=== PATIENT | female | born 1990 | race Caucasian/White ===

== ENCOUNTER 2022-04-18 14:43 | Outpatient (CLI) | payer OTHER, SELFPAY ==
--- NOTE | 2022-04-18 15:00 | CRLHL7_ITS ---
For Patients: As a result of the Century Cures Act, medical imaging exams and procedure reports are released immediately into your electronic medical record. You may view this report before your referring provider. If you have questions, please contact your health care provider. INDICATION: COVID IN , GROWTH. COMPARISON: 01/21/2022 TECHNIQUE: Real time villar scale imaging of the fetus was performed. FINDINGS: Sonographic imaging demonstrates a single living intrauterine gestation. Fetus demonstrates a regular cardiac rate of 157 beats per minute. Fetus has a brianna breech position. The placenta lies left anterior. Amniotic fluid volume appears normal and there is a single deepest vertical pocket: 7.3 cm. The estimated weight is 2108gm which lies at the 73rd %. On the prior OB ultrasound exam dated 01/21/2022 the estimated weight was at the 42nd%. BPD 88th percentile. HC 88th percentile. AC 74th percentile. FL 49th percentile. The HC/AC ratio measures 1.08 range (0.95-1.11). IMPRESSION: Sonographic gestational age 33 weeks 4 days and sonographic due date 06/02/2022. Sonographic age 11 days ahead of the clinical age. Estimated weight 73rd percentile. Abdominal circumference 74th percentile. Dictated by Cisco Ware MD @ 04/19/2022 10:37:39 AM (Electronically Signed)
== END 2022-04-18 14:44 | disposition home or self-care (01) ==
LOC: US 14:44
PROVIDERS: Visit Provider Advanced Practice Midwife
DX: O98.519 Other viral diseases complicating pregnancy, unspecified trimester (principal); U07.1 COVID-19; Z3A.33 33 weeks gestation of pregnancy
CPT/HCPCS: 76816

== ENCOUNTER 2022-05-03 16:21 | Outpatient (CLI) | payer OTHER, SELFPAY | END 2022-05-03 16:22 | disposition home or self-care (01) | LOC: NFLDREF 16:22 | PROVIDERS: Visit Provider Registered Nurse | DX: O99.013 Anemia complicating pregnancy, third trimester (principal); R00.0 Tachycardia, unspecified; Z3A.34 34 weeks gestation of pregnancy | CPT/HCPCS: 84443 ==

== ENCOUNTER 2022-05-06 11:57 | Outpatient (CLI) | payer OTHER, SELFPAY ==
[2022-05-06 17:48] LABS: Iron* 107 ug/dL (37-170)
[2022-05-06 17:58] LABS: Percent Iron Saturation 22 % (20-50); Total Iron Binding Capacity 492 ug/dL (265-497)
[2022-05-06 18:23] LABS: Ferritin* 21.2 ng/mL (6.24-137.0)
== END 2022-05-06 11:58 | disposition home or self-care (01) ==
PROVIDERS: Visit Provider Registered Nurse
DX: O99.013 Anemia complicating pregnancy, third trimester (principal)
CPT/HCPCS: 82728; 83540; 83550

== ENCOUNTER 2022-05-19 14:42 | Outpatient (CLI) | payer OTHER, SELFPAY ==
--- OUTSIDE RECORDS SUMMARY | 2022-05-19 14:44 | XMS_ITS | Encounter Summary ---
:1990 Author Organization [facility] Address [address] [place] [address] Care Team Providers Name Role Phone Judi Strickland APRN, C.N.P., D.N.P. Primary Care Provider Encounter Details Date Type Department Care Team Description 06/08/2021 Orders Only [facility] Judi Strickland APRN, C.N.P., D.N.P. 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 PCP - General 07/25/[id number] [place] [phone] documented as of this encounter
--- OUTSIDE RECORDS SUMMARY | 2022-05-19 14:44 | XMS_ITS | Encounter Summary ---
:1990 Author Organization [facility] Address [address] [place] [address] Care Team Providers Name Role Phone No Ref-Primary, Physician Primary Care Provider [phone] Encounter Details Date Type Department Care Team Description 01/28/2022 Travel Social History Tobacco Use Types Packs/Day Years Used Date Never Assessed Sex Assigned at Date Recorded Not on file COVID-19 Exposure Response Date Recorded In the last 10 days, have you been in contact with No / Unsu re 01/28/2022 1:15 PM CDT someone who was confirmed or suspected to have Coronavirus/COVID-19? 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
--- OUTSIDE RECORDS SUMMARY | 2022-05-19 14:44 | XMS_ITS | Encounter Summary ---
:1990 Author Organization [facility] Address [address] [place] [address] Care Team Providers Name Role Phone Judi Strickland APRN, C.N.P., D.N.P. Primary Care Provider Reason for Visit Reason Comments Patient Education Encounter Details Date Type Department Care Team Description 12/21/2021 Clinical Communication Department of Maris Francisco Education Infusion Therapy in [place], [address] [place], [place] [address] [facility] [address] [address] [place] [phone] Social History Tobacco Use Types Packs/Day Years Used Date Smoking Tobacco: Never Smokeless Tobacco: Never Sex Assigned at Date Recorded Not on file documented as of this encounter Miscellaneous Notes Addendum Note - Carmen Francisco R.N. - 12/21/2021 2:00 PM CDT Addended by: CARMEN FRANCISCO on: 12/21/2021 02:00 PM Modules accepted: Orders Telephone Encounter - Carmen Francisco R.N. - 12/21/2021 1:45 PM CDT SUBJECTIVE CHIEF COMPLAINT / REASON FOR CALL Patient Education Information Discussed Covid:consent for Bebtelovimab at [place] PLAN Disposition/Recommendation: patient transferred to the appointment desk Information/Education: patient/caller able to teach back Caller agreeable to plan of care: yes The following references were used: nursing clinical judgement and other monoclonal education Hi, my name is Carmen Francisco R.N. from [facility] with a recommendation that you receive a monoclonal antibody infusion. To ensure that I offer you the therapies available to you, can you please let me know what state you are residing in right now? [place]. The medication is called bebtelovimab and it is for the treatment of coronavirus disease 2019 (COVID-19). This medication has been recommended for you after review of your medical records by a multidisciplinary physician team. While most people do feel better in seven days, some people do develop serious respiratory complications which could lead to hospitalizations or even . In the next few minutes, I am going to give you more information about this medication to help you understand the possible risks and benefits of taking a monoclonal antibody infusion. It is your choice to receive a monoclonal antibody infusion or stop at any time. ??? Receiving a monoclonal antibody infusion may benefit certain people with COVID-19. ??? This may decrease your risk for hospitalization by 10% to 3% ??? This may decrease the duration of your symptoms by 2 days (from 8 days to 6 days) ??? You may be feeling well now or not that bad, however, you have been identified as someone who isat risk of developing worse symptoms, and this infusion is designed to prevent that and help you to continue feeling well. What is a monoclonal antibody infusion? These are investigational medicines used for the treatment of COVID-19. It can be used in peoplewho are: o Not in the hospital o Who do not have a new or increased oxygen requirement due to COVID-19 o Who have not previously tested positive for COVID-19 within the last 90 days o Age 12 and older o Have mild or moderate symptoms o Weigh equal or more than 88 pounds o AND who are at high risk for developing severe COVID-19 symptoms or being hospitalized. ??? Monoclonal antibodies are laboratory made proteins that mimic the immune system's ability to fight off harmful pathogens such as viruses. This medication is specifically directed against the COVID-19 spike protein, designed to block the virus' attachment and entry into human cells. Do you have new or increased oxygen requirement due to COVID 19? No, I do need to let you know that your vital signs will be taken on the arrival for the infusion center. If you are found to be in needof oxygen due to COVID-19 then you will not be infused with MAB rather you will be referred to an urgent care or ED for evaluation of worsening disease. Are you having COVID symptoms now? Yes, if so what date did they start 12-18-21 Have you been previously tested and diagnosed with COVID-19? Yes; What was the date the of your first positive test? 09-22-21. If your first positive test was more than 90 days prior you are eligible for MAB infusion. I need to let you know that this medication is investigational because it is still being studied. The FDA has approved the use of this medication under an EUA while data is still being collected; but early studies suggest that it reduces the risk of hospitalization. The FDA's Emergency Use Authorization (EUA) has authorized people to receive monoclonal antibody infusions for the treatment of mild COVID-19. [facility] supports this treatment for certain people. I am happy to share with you that since August 2020 [facility] has infused over 23, 000 patients with a monoclonal antibody infusion across our [place] [facility]. I am sharing this because we have not seen any serious side effects in the patients who choose to receive the infusion. The side effects that we are seeing are similar to patients who choose not to receive the medication at all. Patients have reported to us mild fever, diarrhea, chills for a short while, and/or hives. Tell your healthcare provider about all of your medical conditions, including if you: ??? Have any allergies ??? Are or plan to become ??? Are or plan to breastfeed ??? Have any serious illnesses ??? Are taking any medications (prescription, [id number], vitamins, and herbal products) How will I receive a monoclonal antibody infusion? Monoclonal antibodies are given to you through a vein in your arm over approximately 1 minute. You will be observed for 1 hour after the infusion is complete to monitor for side effects. You will receive one dose of the monoclonal antibody infusion by IV. What are the important possible side effects of monoclonal antibodies? The most commonly reported side effects in clinical studies have been nausea, diarrhea, dizziness, headache, itching and vomiting. Serious reactions such as allergic reactions or infusion reactions have occurred but are uncommon. Tell your health care provider right away if you have any of the following signs or symptoms of an allergic reaction: fever, chills, nausea, headache, shortness of breath, low blood pressure, wheezing, swelling of your lips face or throat, rash including hives, itching, muscle aches and dizziness. Because monoclonal antibody infusions are still being studied, not a lot of people have been given monoclonal antibody infusions yet, and it is possible that not all of the risks are known at this time. Serious and unexpected side effects may happen. Specific studies have not been conducted to address the possible risks that a monoclonal antibody infusion could interfere with your body's own ability to fight off a future infection of SARS-CoV-2 and/or whether it could reduce your body's immune response to a vaccine for SARS-CoV-2 . Talk to your healthcare provider if you have any questions including whether the risks of serious SARS-CoV-2 infection outweigh the potential risks of monoclonal antibody infusion. COVID-19 Vaccine or Booster I wanted to share with you that if you have completed your COVID 19 vaccine series and then test positive while being symptomatic you are eligible to receive MAB. MAB has been shown to benefit COVID-19patients who have previously been vaccinated. Patients who receive a monoclonal antibody infusion are still eligible for a COVID-19 vaccine or booster. Patients who receive monoclonal antibody therapies are advised to delay COVID vaccination or booster until they are out of isolation and they are feeling well. We also strongly encourage you to get your flu vaccine this year once your isolation has ended and you are feeling well. What other treatment choices are there? Like monoclonal antibody infusions, the FDA may allow for the emergency use of other medicines to treat people with COVID-19. Go to https://www.surmb88eoqgrdaoadafcawjtby.nih.gov/ for information on the emergency use of other medicines that are not approved by FDA to treat people with COVID- 19. Your healthcare provider may talk with you about clinical trials you may be eligible for. It is your choice to be treated or not to be treated with a monoclonal antibody infusion. Should youdecide not to receive a monoclonal antibody infusion or stop it at any time, it will not change yourstandard medical care. Are you or ? Yes. While there is limited evidence regarding the use of COVID monoclonal antibody and antiviral therapy in , there is evidence that treating womenwith these medications is beneficial. In January 2021, was added to the list of high risk condi tions that qualify patients for emergency use authorization (EAU) medications. is known morgan a high risk condition for developing severe COVID disease, and severe disease can cause serious complications in . For a mother and her unborn baby, the benefit of receiving these medications is likely greater than the risk from the treatment. The [facility] Obstetrics and Gynecology teamsupports the use of monoclonal antibody and certain antiviral therapies for the prevention of severedisease in women. In our experience these medications are well tolerated by patients who are . If you have further questions, you may contact your care team. How do I report side effects with monoclonal antibody infusion? Tell your healthcare provider right away if you have any urgent side effects. For non-urgent side effects or side effects that bothers you or does not go away please contact the care team coordinating your COVID care during business hours. This may be your primary care provider, your COVID care team or your remote monitoring nurse team, which ever is applicable after emergency care, if needed, has been reached. Report side effects to [employer] at www.fda.gov/medAutocostatch, call 2-713-FCP-3547. How can I learn more? Ask your healthcare provider ??? Visit https://www.puwub30qmrjtswiyuxpdkayoyt.nih.gov/ ??? Contact your local or state public health department Would you like to learn more about what an Emergency Use Authorization (EUA)?Yes; The [place] FDA has made these monoclonal antibody infusions available under an emergency access mechanism calledan EUA. The EUA is supported by a [place] of Health and Human Service (HHS) declaration that circumstances exist to justify the emergency use of drugs and biological products during the COVID-19 pandemic. What is the cost for this medication? The medication is provided to [facility] at no charge and there is no cost of the medication to youthe patient. Any associated costs with the infusion will be billed to the patient's insurance company. [place] does not want cost to be a barrier to infusion so please let us know at your infusion if you need more information or are worried about cost being a barrier. If you are uninsured or underinsuredyou will still be able to receive this medication free of cost. Medication Interactions Please know that there has been a large review by pharmacists, and this medication is not likely to interfere with any normal medication patients may be taking. This is possible as your body processes this medication differently than standard prescription medications. Given how this medication helps your body it is better to receive this medication as soon as possible if you agree to the infusion. Please know that our team is offering and will provide you this treatment for COVID-19 as part of a larger team that is coordinating your overall care. If you have continued questions after your infusion or your symptoms get worse please reach out to the team coordinating your clinical care, either a COVID-19 focused team or your primary care provider's office. If you have a patient portal please look at your messages as there may be one awaiting your review from the clinical team coordinating your care. Do you agree/consent to receive this infusion? Yes; The following education has been completed in accordance with the FDA Emergency Use Authorization (EUA) requirements: Informed patient/caregiver thatmonoclonal antibody infusions are an unapproved drug that is authorized for use under this EUA. Informed patient/caregiver of alternatives to receiving authorized monoclonal antibody infusions The Fact Sheet for Patients, Parents and Caregivers will be provided to patient/caregiver at the [facility]. Remote Patient Monitoring: System Calculated MASS Score: Monoclonal Antibody Screening Score (MASS) Total Points Current as of 39 minutes ago 2 0 - 3 Points: Low Risk 4 - 6 Points: Medium Risk >= 7 Points: High Risk No Change Details This score is used to evaluate patient risk of complications with COVID-19 infection Points Metrics 0 Age: 31 Current as of 39 minutes ago 0 Has Chronic Respiratory Disease: No Current as of 39 minutes ago 0 Has Diabetes: No Current as of 39 minutes ago 0 Patient is Immune Compromised/Transplant Patient: No Current as of 39 minutes ago 0 BMI: BMI >/= 25 Dx on Problem List Current as of 39 minutes ago 0 Has CVD: No Current as of 39 minutes ago 0 Has Renal Disease (CKD 4 or 5, ESRD w/ Dialysis): No Current as of 39 minutes ago 0 Has Hypertension: No Current as of 39 minutes ago 2 : Yes Current as of 39 minutes ago Does the patient have a qualifying MASS score? No. MASS Score is 0-2. End RPM screening. Does the patient have symptoms? Yes. Patient is day 0-5 from symptom onset. Continue RPM screening. Is the patient eligible for Remote Patient Monitoring? No. You do not qualify for Remote Patient Monitoring. COVID-19 Isolation Beginning of isolation (day 0) is considered the start of onset of symptoms. Effective 09/27/21, the CDC now recommends a minimum 5 day isolation for the general population who tests positive for COVID-19 and who are asymptomatic or with symptoms that are resolving (without a fever for 24 hours), followed by 5 days of wearing a mask when around others to minimize the risk of infecting people they encounter. Individuals who are immune compromised should isolate for a minimum of 10 days. An individual must, at a minimum, follow the isolation and quarantine requirements outlined by [facility] health department. All isolation periods are for a minimum number of days, and patients must still meet criteria of being fever free and having improving symptoms for 24hour prior to ending home isolation. The patient may end home isolation when they meet the following criteria: ??? They have met the minimum days of the recommended isolation period (day 0 is day of symptom onset OR date of positive test if they never had symptoms) ??? They have been afebrile at least 24 hours without the use of fever reducing medications ??? Their symptoms are improving Thank you for your time, I will connect with the rest of the team to let them know the results of this phone call. 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 PCP - General 07/25/[id number] [place] [phone] documented as of this encounter
--- OUTSIDE RECORDS SUMMARY | 2022-05-19 14:44 | XMS_ITS | Encounter Summary ---
:1990 Author Organization [facility] Address [address] [facility] 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
--- OUTSIDE RECORDS SUMMARY | 2022-05-19 14:44 | XMS_ITS | Encounter Summary ---
:1990 Author Organization [facility] Address [address] [place] [address]. [place] [address] Care Team Providers Name Role Phone Unavailable Primary Care Provider Unavailable Encounter Details Date Type Department Care Team Description 01/25/2022 Medical Correspondence [facility] Scan, MATERNAL Health Info Mgmt Non-Provider MEDICINE CE [facility] Srvcs PROVIDER SERVICE [address] [place] [address] [place] [address] [facility] [phone] Social History Tobacco Use Types Packs/Day Years Used Date Never Assessed Sex Assigned at Date Recorded Not on file documented as of this encounter Plan of Treatment Not on filedocumented as of this encounter Visit Diagnoses Not on filedocumented in this encounter
--- OUTSIDE RECORDS SUMMARY | 2022-05-19 14:44 | XMS_ITS | Encounter Summary ---
:1990 Author Organization [facility] Address [address] [place] [address] Care Team Providers Name Role Phone Unavailable Primary Care Provider Unavailable Reason for Visit Reason Comments Ultrasound L2-L Ventricular EIF, bilate ral adrenal gland enlargement Encounter Details Date Type Department Care Team Description 01/26/2022 PRE VISIT [facility], Ultrasound (L2-L Maternal Medicine ABIEL Gardiner Vent ricular EIF, [facility] bilateral adrenal [address] gland en largement) [address] [place] [address] Social History Tobacco Use Types Packs/Day Years Used Date Never Assessed Sex Assigned at Date Recorded Not on file documented as of this encounter Miscellaneous Notes Telephone Encounter - Zuleyka Gonzalez RN - 01/26/2022 1:53 PM CDT documented in this encounter Plan of Treatment Not on filedocumented as of this encounter Visit Diagnoses Not on filedocumented in this encounter
--- OUTSIDE RECORDS SUMMARY | 2022-05-19 14:44 | XMS_ITS | Encounter Summary ---
:1990 Author Organization [facility] Address [address] [place] [address] Care Team Providers Name Role Phone Judi Strickland APRN, C.N.P., D.N.P. Primary Care Provider Reason for Visit Reason Onset Date Comments Testing For Upper Respiratory Virus Symptoms 11/09/2021 Encounter Details Date Type Department Care Team Description 11/09/2021 External Outreach Department of [facility] Leann Garrido Contact With And Medicine, [place] Flaquita ZamoranoARamakrishna (Suspected) Exposure Clinic, in [address] To COVID-19 (Primary [place], [place] Dx) [address] [facility] [address] [place], [place] [phone] (Work) [phone] Social History Tobacco Use Types Packs/Day Years Used Date Smoking Tobacco: Never Smokeless Tobacco: Never Sex Assigned at Date Recorded Not on file documented as of this encounter Progress Notes Betty Sky R.N. - 11/09/2021 8:34 AM CST Encounter created for symptomatic infectious disease screening with possible COVID, Influenza, RSV, and/or Group A Strep testing. ICAL TERRITORY MANAGER documented in this encounter Plan of Treatment Not on filedocumented as of this encounter Procedures Procedure Name Priority Date/Time Associated Diagnosis Comme nts SARS CORONAVIRUS-2 Routine 11/10/2021 3:51 PM Contact With And Results for this RNA, V SURGICAL TERRITORY MANAGER (Suspected) Exposure procedu re are in To COVID-19 the results section. documented in this encounter Results SARS Coronavirus-2 RNA, V Symptomatic (11/10/2021 3:51 PM SURGICAL TERRITORY MANAGER) [facility] Method Time Signature SARS-CoV-2 Swab, 11/11/2021 ECLR Specimen Nasopharynx 7:22 AM SURGICAL TERRITORY MANAGER Source SARS CoV-2 Undetected Undetected 11/11/2021 ECLR RNA, TMA 7:22 AM SURGICAL TERRITORY MANAGER Comment: SARS-CoV-2 RNA absent. This result does not rule out COVID-19 in the patient, as the sensitivity of the test depends o n the timing of the specimen collection and the quality of the specim en. Result should be correlated with patient's history and clinical presentat ion. ----ADDITIONAL INFORMATION---- This molecular amplification test was pe rformed using the Aptima SARS-CoV-2 assay ([employer] on the [employer] tem under emergency use authorization (EUA) by the U.S. Food and Drug Administ ration. Fact sheets for this EUA assay can be fo und at the following links: For Healthcare Providers: https://www.[employer] a.gov/media/488340/download For Patients: https://www.fda.gov/media/ 385451/download Specimen Anatomical Collection Method Collection Time Receive d Time (Source) Location / / Volume Laterality Varies 11/10/2021 3:51 PM 9:57 (Nasopharynx) SURGICAL TERRITORY MANAGER PM SURGICAL TERRITORY MANAGER Del Garrido P.A.-C. LAB MICROBIOLOGY - GENERAL O RDERABLES Performing Organization Address City/State/ZIP Code Phon e Number [facility]- [address] [place] [address] [phone] [facility] [place] [address] [address] documented in this encounter Visit Diagnoses Diagnosis Contact With And (Suspected) Exposure To COVID-19 - Primary documented in this encounter Additional Health Concerns Infection Onset Date Last Indicated Resolved Time COVID19 Pending 11/09/2021 11/10/2021 11/11/2021 7:23 AM SURGICAL TERRITORY MANAGER documented as of this encounter Care Teams Vehicle Safety Inspector Relationship Specialty Start Date End Date Judi Strickland APRN, C.N.P., D.N.P. PCP - General 07/25/[address] [place] [phone] documented as of this encounter
--- OUTSIDE RECORDS SUMMARY | 2022-05-19 14:44 | XMS_ITS | Encounter Summary ---
:[address] [facility] Address [address] [place] [address] Care Team Providers Name Role Phone Judi Strickland APRN, C.N.P., D.N.P. Primary Care Provider Reason for Visit Appointment Request (Routine) - Closed Specialty Diagnoses / Procedures Referred By Contact Refer red To Contact Family Medicine Referral ID Status Reason Start Date Expiration Date Visits Requ ested Visits Authorized [id number] Closed 12/21/2021 12/21/2022 1 1 Encounter Details Date Type Department Care Team Description 12/21/2021 Internal E-Consult Department of Family Mehnaz Chong OVID-19 Infection Medicine, Center [address] (Primary Dx) [address] Professional [address] [facility], [address] [place] [address] [place], [place] [phone] (Work) Social History Tobacco Use Types Packs/Day Years Used Date Smoking Tobacco: Never Smokeless Tobacco: Never Sex Assigned at Date Recorded Not on file documented as of this encounter Consult Notes Mehnaz Chong, D.OAnia - 12/21/2021 11:00 AM CDT E-Consult for Request for Outpatient Treatment for Acute Covid-19 Ms. Felix tested positive for COVID-19. The Covid-19 Infection flag in the [place] Chart has been updated. [facility], in collaboration with the [place] [facility] of [facility], is currently able to offer [place] oral treatment to symptomatic patients who have symptoms < or = 7 days and < or =5 days respectively and a CAST >=1. Care/Risk Scores Risk Factors for Severe Infection w/ COVID-19 0 The patient is eligible for outpatient COVID therapy. Since the patient is , immunocompromised or ineligible for Paxlovid, the chart will be routed to the closest regional infusion therapy center to the patient's location. An RN will be contacting patient to consent and order the appropriate therapy. Mehnaz Chong D.O. [place] COVID Care Team [facility] and [facility] -Eligibility for treatment requires a CAST>=1. Eligibility for Remote Patient Monitoring requiresMASS>=3. Monoclonal Antibody Screening Score Guide Age >=65 = 2 BMI >= 35 = 1 Cardiovascular disease AND age > =55 = 2 Chronic kidney disease stave IV or more severe (eGFR <30) = 3 Chronic Respiratory Disease and age >= 55 = 2 Diabetes Mellitus = 2 Hypertension and age >= 55 = 1 Immune Compromised = 4 = 2 Monoclonal Antibody Screening Score (MASS) Total Points N/A 0 - 3 Points: Low Risk 4 - 6 Points: Medium Risk >= 7 Points: High Risk Last Change: N/A This score is used to evaluate patient risk of complications with COVID-19 infection This score is not applicable to this patient. Components are not calculated. CAST Score Age >= 65=1 BMI >25=1 Diabetes Mellitus=1 CV Disease=1 =1 CKD=1 Sickle Cell Disease/hemoglobinopathy=1 Chronic Lung Disease=1 Other Medical Disease Increase Risk of COVID-19 Complications=1 Medical-Related Technological Dependence (tracheostomy, gastrostomy or CPAP=1 Neurodevelopmental Disorder=1 Immunosuppressive disease or treatment=1 Hypertension=1 documented in this encounter Plan of Treatment Not on filedocumented as of this encounter Visit Diagnoses Diagnosis COVID-19 Infection - Primary documented in this encounter Care Teams Gas Fitter Helper Relationship Specialty Start Date End Date Judi Strickland APRN, C.N.P., D.N.P. PCP - General 07/25/[address] [place] [phone] documented as of this encounter
--- OUTSIDE RECORDS SUMMARY | 2022-05-19 14:44 | XMS_ITS | Encounter Summary ---
:1990 Author Organization [facility] Address [address] [place] [address] Care Team Providers Name Role Phone Judi Strickland APRN C.N.P., D.N.P. Primary Care Provider Reason for Referral Outpatient (Routine) - Authorized Specialty Diagnoses / Procedures Referred By Contact Refer red To Contact Family Medicine Judi Strickland APRN, [facility] C.N.P., D.N.P. [address] [place] [phone] Referral ID Status Reason Start Date Expiration Date Visits V isits Requested Authorized [id number] Authorized 03/08/2022 03/08/2023 1 1 Encounter Details Date Type Department Care Team Description 03/08/2022 Orders Only [facility] SEMN PCP TH EMILIANOT Sa marshall Givens M.D. [address] [place], [place] [phone] (Wo rk) Social History Tobacco Use Types Packs/Day Years Used Date Smoking Tobacco: Never Smokeless Tobacco: Never Sex Assigned at Date Recorded Not on file documented as of this encounter Plan of Treatment Scheduled Referrals Name Type Priority Associated Diagnoses [facility] Out[facility] Referral Routine Expec jacob: office visit 03/22/2022, (clinic) Expires: 09/04/2022 documented as of this encounter Visit Diagnoses Not on filedocumented in this encounter Care Teams Senior Recruitment Consultant Relationship Specialty Start Date End Date Judi Strickland APRN, C.N.P., D.N.P. PCP - General 07/25/[address] [phone] documented as of this encounter
--- OUTSIDE RECORDS SUMMARY | 2022-05-19 14:44 | XMS_ITS | Encounter Summary ---
:1990 Author Organization [facility] Address [address] [place] [address]. [place] [address] Care Team Providers Name Role Phone Unavailable Primary Care Provider Unavailable Reason for Referral Consultation (Routine: Next available opening) - Pending Review Specialty Diagnoses / Procedures Referred By Contact Refer red To Contact Diagnoses related condition, antepartum Romana Mar MD [facility] [address] [place] [address] Fax: Referral ID Status Reason Start Date Expiration Date Visits V isits Requested Authorized [id number] Pending 01/25/2022 01/25/2023 1 1 Review Encounter Details Date Type Department Care Team Description 01/25/2022 Transcribe Orders [facility] Romana Mar, Pr egnancy related Maternal MD condition, [facility] antepartum (Primary [facility] Dx) [address] [facility] [address] [place] [address] [phone] Social History Tobacco Use Types Packs/Day Years Used Date Never Assessed Sex Assigned at Date Recorded Not on file documented as of this encounter Plan of Treatment Scheduled Referrals Name Type Priority Associated Diagnoses Order S chedule [facility] Med Ctr Referral Routine: Next related Expe cted: Referral - available opening condition, 01/25/2022 antepartum (Approximate), Expires: 07/24/2022 documented as of this encounter Visit Diagnoses Diagnosis related condition, antepartum - Primary documented in this encounter
--- OUTSIDE RECORDS SUMMARY | 2022-05-19 14:44 | XMS_ITS | Encounter Summary ---
:1990 Author Organization [facility] Address [address] [facility] 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-Hb-[id number] adrenal glan ds bilaterally Encounter Details Date Type Department Care Team Description 02/25/2022 Office Visit [facility] Jazmine Sanderson DO [address] [address] Suspected Maternal Pinky Cottrell MD [address] [place] [address] anomaly, antepartum, Medicine Center single or un specified [place] fetus (Primary Dx) [address] [facility] [address] [place] [address] Social History Tobacco Use Types Packs/Day Years Used Date Never Assessed Sex Assigned at Date Recorded Not on file COVID-19 Exposure Response Date Recorded In the last 10 days, have you been in contact with No / Unsu re 02/25/2022 7:46 AM CDT someone who was confirmed or suspected to have Coronavirus/COVID-19? documented as of this encounter Progress Notes Pinky Cottrell MD - 02/25/2022 8:30 AM CDT Please see Imaging tab under Chart Review for full details. Pinky Cottrell MD Maternal Medicine documented in this encounter Plan of Treatment Not on filedocumented as of this encounter Visit Diagnoses Diagnosis Suspected anomaly, antepartum, sin gle or unspecified fetus - Primary documented in this encounter Care Teams Business Education Instructor Relationship Specialty Start Date End Date No Ref-Primary, Physician PCP - General 01/27/22 Afsaneh Enciso DO Assigned OBGYN Provider 02/06/22 04/29/[address] [place] [address] documented as of this encounter
--- OUTSIDE RECORDS SUMMARY | 2022-05-19 14:44 | XMS_ITS | Encounter Summary ---
:1990 Author Organization [facility] Address [address] [place] [address] Care Team Providers Name Role Phone Judi Strickland APRN, C.N.P., D.N.P. Primary Care Provider Encounter Details Date Type Department Care Team Description 10/18/2021 Clinical Communication Department of [facility] Obstetric[facility] in [address] [address] [place], [place] [phone] (Work) [phone] Social History Tobacco Use Types Packs/Day Years Used Date Smoking Tobacco: Never Smokeless Tobacco: Never Sex Assigned at Date Recorded Not on file documented as of this encounter Miscellaneous Notes Telephone Encounter - Kalyani Bardales R.N. - 10/20/2021 9:37 AM CST Spoke with patient. States that she is unsure if she is planning to come through or [place]. Will call back when decides where she wants her care. [facility] Telephone Encounter - Carleen Fontaine - 10/18/2021 4:44 PM CST New ob [facility] documented in this encounter Plan of Treatment Not on filedocumented as of this encounter Visit Diagnoses Not on filedocumented in this encounter Care Teams Polysomnography Technologist Relationship Specialty Start Date End Date Judi Strickland APRN, C.N.P., D.N.P. PCP - General 07/25/[address] [place] [phone] documented as of this encounter
--- OUTSIDE RECORDS SUMMARY | 2022-05-19 14:44 | XMS_ITS | Encounter Summary ---
:1990 Author Organization [facility] Address [facility] [place] [place] [address] Care Team Providers Name Role Phone No Ref-Primary, Physician Primary Care Provider [phone] Reason for Referral Diagnostic Imaging Ultrasound (Routine) - Pending Review Specialty Diagnoses / Procedures Referred By Contact Refer red To Contact Diagnoses related condition, antepartum Romana Metzger MD Procedures [facility], [place] [address] [place] [address] Fax: Referral ID Status Reason Start Date Expiration Date Visits V isits Requested Authorized [id number] Pending 01/26/2022 01/26/2023 1 1 Review Reason for Visit Diagnostic Imaging Ultrasound (Routine) - Pending Review Specialty Diagnoses / Procedures Referred By Contact Refer red To Contact Diagnoses related condition, antepartum Romana Metzger MD Procedures [facility], [place] [address] [place] [address] Fax: Referral ID Status Reason Start Date Expiration Date Visits V isits Requested Authorized [id number] Pending 01/26/2022 01/26/2023 1 1 Review Encounter Details Date Type Department Care Team Description 01/28/2022 Hospital Encounter [facility] Eduarda Metzger MD [facility], [place] [address] [place] [address] related Maternal Afsaneh Enciso, DO [address] [facility] [address] [place], [place] [id number] condition, Medicine Center antepartum [place] [address] [facility] [address] [place] [address] Social History Tobacco Use Types [...] encounter Procedures Procedure Name Priority Date/Time Associated Comments Diagnosis MF US COMPREHENSIVE Routine 01/28/2022 2:16 PM rela jacob Results for this SINGLE CDT condition, procedure are i n antepartum the results section. documented in this encounter Results [facility] US Comprehensive Single (01/28/2022 2:16 PM CDT) Anatomical Region Laterality Modality Ultrasound Specimen (Source) Anatomical Collection Method Collection Time Re ceived Time Location / / Volume Laterality 01/28/2022 1:24 PM CDT Impressions 01/31/2022 8:57 AM CDT IMPRESSION 1) Intrauterine at 20 4/7 week s gestational age. 2) Bilateral prominent adrenal glands. T he genitalia appears normal. None of the other anomalies commonly detected by ultrasound were evident in the detailed anatomic survey described above. An EIF is seen. No increased risk for aneuploidy based on US. 3) Growth parameters and estimated weight were consistent with an appropriate for gestation age pattern of growth. 4) The amniotic fluid volume appeared no rmal. Narrative 01/31/2022 8:57 AM CDT Comprehensive Pat. Name: ARIS LEOS Study Date: 01/28/2022 1:24pm Pat. NO: [id number] Referring ??MD: ZACH METZGER Site: [facility] Tool Repairer Bench: Tania Reid RD MS : 1990 Age: 31 INDICATION Left, Echogenic Intracardiac Focus and e nlarged adrenal glands on outside US. LR NIPT. METHOD Transabdominal ultrasound examination. V iew: Sufficient Brownlee . Number of fetuses: 1 DATING ? Date ?Details ?Gest. age ?ELIZABETH LMP ?09/06/2021 ? 20 w + 4 d ? 06/13/2022 Prior assessment ? 2/ 05/2022 ?GA: 9 w + 1 d ? 20 w + 4 d ? 06/13/2022 U/S ? 01/28/2022 ? based upon AC, BPD, Femur, HC ? 20 w + 5 d ? 06/12/2022 Assigned dating ?Dating performed on 01/28/2022, based on the LMP ?20 w + 4 d ? 06/13/2022 GENERAL EVALUATION Cardiac activity present. FHR 145 bpm. movements present. Presentation cephalic. Placenta Fundal, No Previa, > 2 cm from internal os. Umbilical cord 3 vessel cord. Amniotic fluid Amount of AF: normal. MVP 4.3 cm. BIOMETRY Main Biometry: BPD ?49.9 ?mm ? 21w 1d ?Yarelis LAUREN ?62.5 ?mm ? 20w 1d ?Nicolaides HC ?180.9 ?mm ?20w 4d ?Hadlock Cerebellum tr ?20.0 ? mm ?19w 0d ?Nicolaides AC ?149.8 ?mm ?20w 2d ?32% ?Hadlock Femur ?34.0 ? mm ?20w 5d ?Hadlock Humerus ?32.2 ?mm ? 20w 6d ?Debby Weight Calculation: EFW ? 356 ? g ? 39% ?Hadlock EFW (lb,oz) ? 0 lb 13 ? oz EFW by ?Hadlock ([id number]) Head / Face / Neck Biometry: Data Security Administrator ? 4.6 ? mm CM ?5.7 ? mm Nasal bone ? 6.3 ? mm Nuchal fold ? 3.2 ? mm ANATOMY Heart / Thorax ?4-chamber view: Echogenic intracardiac focus Abdomen ? Right adrenal gland: Prominent adrenal gland ? Left adrenal gland: Prominent adrenal gland The following structures appear normal: Head / Neck ? Cranium. Head size. Head shape. Lateral ventricles. Choroid plexus. Midline falx. Cavum septi pellucidi. Cerebellum. Cisterna magna. ? Parenchyma. Thalami. Vermis. ? Neck. Nuchal fold. Face ? Lips. Profile. Nose. Maxilla. Mandible. Orbits. Lens. Heart / Thorax ?RVOT view. LVOT view. Situs. Aortic arch view. Bicaval view. Ductal arch view. Superior vena cava. Inferior vena cava. 3-vessel view. ? 3-iyalmo-pbzpnxf view. Cardiac position. Cardiac size. Cardiac rhythm. ? Right lung. Left lung. Diaphragm. Abdomen ? Abdominal wall. Cord insertion. Stomach. Kidneys. Bladder. Liver. Bowel. Genitals. Spine ?Cervical spine. Thoracic spine. Lumbar spine. Sacral spine. Extremities / Skeleton ?Rig ht arm. Right hand. Left arm. Left hand. Right leg. Right foot. Left leg. Left foot. Gender: male. MATERNAL STRUCTURES Cervix ?Visualized ? Appearance: Appears Closed ? Cervical length 35.6 mm Right Ovary ?Visualized Left Ovary ?Visualized RECOMMENDATION [facility]. Referred due to prominent adrenal glands and EIF. Confirmed the findings on today's US. Patient had a low risk cell free DNA screen. We reviewed the findings of the prominen t adrenal glands. This could represent a normal variant, bilateral adrenal hemorrhage, less likely congenital adrenal hyperplasia. If adrenal hemorrhage, most will resolve sp ontaneously. We reviewed CAH, autosomal recessive inheritance pattern and discussed carrier screening. The couple were initially interested in meeting with to review the options for carrier screening, but then decided to wait. An echogenic intracardiac focus (EIF) wa s noted on today's ultrasound. This finding is seen in 3-5% of all pregnancies, and in the context of a normal ultrasound and her low risk cell free DNA result it i s considered a normal variant. We discussed that an EIF has no structural or functional implications on cardiac function and further evaluation is not necessary either prena tally or postnatally. A repeat ultrasound has been scheduled h ere in 4 weeks to reevaluate the appearance of the adrenal glands. Return to primary provider for continued care. Thank you for the opportunity to partici calhoun in the care of this patient. If you have questions regarding today's evaluation or if we can be of further service, please contact the Maternal[facility] Medicine Center. anomalies may be present but not detected I spent a total of 30 minutes on the bayron e of this encounter in the care of Aris Leos, includin minutes reviewing the patient's chart 15 minutes in direct patient contact 5 minutes documenting in the medical rec ord Please see note for details. Procedure Note Afsaneh Enciso, DO - 01/31/2022 Comprehensive Pat. Name:Alejandro LEOS Date: 1:24pm Pat. NO: [id number] :ROMANA METZGER [facility] RDMS :1990Age:31 INDICATION Left, Echogenic Intracardiac Focus and e nlarged adrenal glands on outside US. LR NIPT. METHOD Transabdominal ultrasound examination. V iew: Sufficient Brownlee . Number of fetuses: 1 DATING Date Details Gest. age ELIZABETH LMP 09/06/2021 20 w + 4 d 06/13/2022 Prior assessment 11/09/2021 GA: 9 w + 1 d 20 w + 4 d 06/13/2022 U/S 01/28/2022 based upon AC, BPD, Femur, HC 20 w + 5 d 06/12/2022 Assigned dating Dating performed on 01/01, based on the LMP 20 w + 4 d 06/13/2022 GENERAL EVALUATION Cardiac activity present. FHR 145 bpm. movements present. Presentation cephalic. Placenta Fundal, No Previa, > 2 cm from internal os. Umbilical cord 3 vessel cord. Amniotic fluid Amount of AF: normal. MVP 4.3 cm. BIOMETRY Main Biometry: BPD 49.9 mm 21w 1d Hadlock OFD 62.5 mm 20w 1d Nicolaides HC 180.9 mm 20w 4d Hadlock Cerebellum tr 20.0 mm 19w 0d Nicolaides AC 149.8 mm 20w 2d 32% Hadlock Femur 34.0 mm 20w 5d Hadlock Humerus 32.2 mm 20w 6d Debby Weight Calculation: EFW 356 g 39% Hadlock EFW (lb,oz) 0 lb 13 oz EFW by Hadlock ([id number]-FL) Head / Face / Neck Biometry: Data Security Administrator 4.6 mm CM 5.7 mm Nasal bone 6.3 mm Nuchal fold 3.2 mm ANATOMY Heart / Thorax 4-chamber view: Echogenic intracardiac focus Abdomen Right adrenal gland: Prominent a drenal gland Left adrenal gland: Prominent adrenal g land The following structures appear normal: Head / Neck Cranium. Head size. Head sha pe. Lateral ventricles. Choroid plexus. Midline falx. Cavum septi pellucidi. Cerebellum. Cisterna magna. Parenchyma. Thalami. Vermis. Neck. Nuchal fold. Face Lips. Profile. Nose. Maxilla. [place] ble. Orbits. Lens. Heart / Thorax RVOT view. LVOT view. Sit us. Aortic arch view. Bicaval view. Ductal arch view. Superior vena cava. Inferior vena cava. 3-vessel view. 2-xneszv-jvagahp view. Cardiac position . Cardiac size. Cardiac rhythm. Right lung. Left lung. Diaphragm. Abdomen Abdominal wall. Cord insertion. Stomach. Kidneys. Bladder. Liver. Bowel. Genitals. Spine Cervical spine. Thoracic spine. Omaira mbar spine. Sacral spine. Extremities / Skeleton Right arm. Right hand. Left arm. Left hand. Right leg. Right foot. Left leg. Left foot. Gender: male. MATERNAL STRUCTURES Cervix Visualized Appearance: Appears Closed Cervical length 35.6 mm Right Ovary Visualized Left Ovary Visualized RECOMMENDATION We [facility]. Referred due to prominent adrenal glands and EIF. Confirmed the findings on today's US. Patient had a low risk cell free DNA screen. We reviewed the findings of the prominen t adrenal glands. This could represent a normal variant, bilateral adrenal hemorrhage, less likely congenital adrenal hyperplasia. If adrenal hemorrhage, most will resolve sp ontaneously. We reviewed CAH, autosomal recessive inheritance pattern and discussed carrier screening. The couple were initially interested in meeting with to review the options for carrier screening, but then decided to wait. An echogenic intracardiac focus (EIF) wa s noted on today's ultrasound. This finding is seen in 3-5% of all pregnancies, and in the context of a normal ultrasound and her low risk cell free DNA result it i s considered a normal variant. We discussed that an EIF has no structural or functional implications on cardiac function and further evaluation is not necessary either prena tally or postnatally. A repeat ultrasound has been scheduled h ere in 4 weeks to reevaluate the appearance of the adrenal glands. Return to primary provider for continued care. Thank you for the opportunity to partici calhoun in the care of this patient. If you have questions regarding today's evaluation or if we can be of further service, please contact the Maternal- Medicine Center. anomalies may be present but not detected I spent a total of 30 minutes on the bayron e of this encounter in the care of Arsi Leos, includin minutes reviewing the patient's chart 15 minutes in direct patient contact 5 minutes documenting in the medical rec ord Please see note for details. IMPRESSION 1) Intrauterine at 20 4/7 week s gestational age. 2) Bilateral prominent adrenal glands. T he genitalia appears normal. None of the other anomalies commonly detected by ultrasound were evident in the detailed anatomic survey described above. An EIF is seen. No increased risk for aneuploidy based on US. 3) Growth parameters and estimated weight were consistent with an appropriate for gestation age pattern of growth. 4) The amniotic fluid volume appeared no rmal. Romana Metzger MD [facility] US ORDERABLES documented in this encounter Visit Diagnoses Diagnosis related condition, antepartum documented in this encounter Care Teams Groover And Striper Operator Relationship Specialty Start Date End Date No Ref-Primary, Physician PCP - General 01/27/22 documented as of this encounter
--- OUTSIDE RECORDS SUMMARY | 2022-05-19 14:44 | XMS_ITS | Encounter Summary ---
:1990 Author Organization [facility] Address [address] [place] [address]. [place] [address] Care Team Providers Name Role Phone Unavailable Primary Care Provider Unavailable Reason for Referral Diagnostic Imaging Ultrasound (Routine) - Pending Review Specialty Diagnoses / Procedures Referred By Contact Refer red To Contact Diagnoses related condition, antepartum Romana Metzger MD Procedures [facility] [address] [place] [address] Fax: Referral ID Status Reason Start Date Expiration Date Visits V isits Requested Authorized [id number] Pending 01/26/2022 01/26/2023 1 1 Review Encounter Details Date Type Department Care Team Description 01/26/2022 Transcribe Orders [facility], Pr egnancy related Maternal MD condition, [facility] antepartum (Primary [facility]) [address] [address] [phone] Social History Tobacco Use Types Packs/Day Years Used Date Never Assessed Sex Assigned at Date Recorded Not on file documented as of this encounter Plan of Treatment Not on filedocumented as of this encounter Results [facility] (01/28/2022 2:16 PM CDT) Anatomical Region Laterality [...] LEOS Study Date: 01/28/2022 1:24pm Pat. NO: [id number] Referring ??: ZACH METZGER Site: [facility] Alcoholism Worker: Tania Reid RD AK : 1990 Age: 31 INDICATION Left, Echogenic [...] Biometry: BPD ?49.9 ?mm ? 21w 1d ?Hadlock OFD ?62.5 ?mm ? 20w 1d ?Nicolaides HC ?180.9 ?mm ?20w 4d ?Hadlock Cerebellum tr ?20.0 ? mm ?19w 0d ?Nicolaides AC ?149.8 ?mm ?20w 2d ?32% ?Hadlock Femur ?34.0 ? mm ?20w 5d ?Hadlock Humerus ?32.2 ?mm ? 20w 6d ?Debby Weight Calculation: EFW ? 356 ? g ? 39% ?Hadlock EFW (lb,oz) ? 0 lb 13 ? oz EFW by ?Hadlock ([id number]) Head / Face / Neck Biometry: Orthopedic Shoe Maker ? 4.6 ? mm CM ?5.7 ? [...] cava. Inferior vena cava. 3-vessel view. ? 6-vhivjq-pagbxrp view. Cardiac position. Cardiac size. Cardiac rhythm. [...] RECOMMENDATION We [facility] the [facility]. Referred due to prominent [...] Thank you for the opportunity to partici lj in the care of this patient. If [...] note for details. Procedure Note Afsaneh Enciso, - 01/31/2022 Comprehensive Pat. Name:ARIS LEOSDavid Date: 1:24pm Pat. NO: [id number] MD:ROMANA METZGER [facility] RDMS :1990Age:31 INDICATION Left, Echogenic [...] 0 lb 13 oz EFW by Hadlock ([id number]-FL) Head / Face / Neck Biometry: Orthopedic Shoe Maker 4.6 mm CM 5.7 mm Nasal bone [...] vena cava. Inferior vena cava. 3-vessel view. 2-kdaggz-acrzxbp view. Cardiac position . Cardiac size. Cardiac [...] RECOMMENDATION We discussed the findings on today's [facility] with the patient. Referred due to prominent [...] appeared no rmal. Romana Metzger MD [facility] US ORDERABLES documented in this encounter Visit Diagnoses Diagnosis related condition, antepartum - Primary related condition, antepartum documented in this encounter
--- OUTSIDE RECORDS SUMMARY | 2022-05-19 14:44 | XMS_ITS | Encounter Summary ---
:1990 Author Organization [facility] Address [address] [place] [address] Care Team Providers Name Role Phone Judi Strickland APRN, C.N.P., D.N.P. Primary Care Provider Reason for Referral Outpatient (Routine) - Closed Specialty Diagnoses / Procedures Referred By Contact Refer red To Contact Family Medicine Judi Strickland APRN, [facility] C.N.P., D.N.P. [address] [place] [address] [place] [address] Referral ID Status Reason Start Date Expiration Date Visits Requ ested Visits Authorized [id number] Closed 03/19/2020 03/19/2021 1 1 Encounter Details Date Type Department Care Team Description 03/19/2020 Orders Only RST PCP [facility] Judi Strickland APRN, C.N.P., D.N.P. [address] [place] [phone] (Wo rk) Social History Tobacco Use Types Packs/Day Years Used Date Smoking Tobacco: Never Smokeless Tobacco: Never Sex Assigned at Date Recorded Not on file documented as of this encounter Plan of Treatment Scheduled Referrals Name Type Priority Associated Diagnoses [facility] Outpatient Referral Routine Expec jacob: office visit 04/02/2020, (clinic) Expires: 03/19/2023 documented as of this encounter Visit Diagnoses Not on filedocumented in this encounter Care Teams Power Wood Sawyer Relationship Specialty Start Date End Date Judi Strickland APRN, C.N.P., D.N.P. PCP - General 07/25/[address] [phone] documented as of this encounter
--- OUTSIDE RECORDS SUMMARY | 2022-05-19 14:44 | XMS_ITS | Encounter Summary ---
:1990 Author Organization [facility] Address [address] [place] [address] Care Team Providers Name Role Phone Judi Strickland APRN, C.N.P., D.N.P. Primary Care Provider Encounter Details Date Type Department Care Team Description 11/10/2021 Hospital Encounter Department of Laboratory [place] [place] [phone] (Wo rk) Social History Tobacco Use Types Packs/Day Years Used Date Smoking Tobacco: Never Smokeless Tobacco: Never Sex Assigned at Date Recorded Not on file documented as of this encounter Medications at Time of Discharge Medication Sig Dispensed Refills Start Date End Date MARLISSA 0.15-0.03 mg per tablet 0 11/2016 documented as of this encounter Plan of Treatment Not on filedocumented as of this encounter Visit Diagnoses Not on filedocumented in this encounter Additional Health Concerns Infection Onset Date Last Indicated Resolved Time COVID19 Pending 11/09/2021 11/10/2021 11/11/2021 7:23 AM KEYSEATER OPERATOR documented as of this encounter Care Teams Marketing Information Analyst Relationship Specialty Start Date End Date Judi Strickland APRN, C.N.P., D.N.P. PCP - General 07/25/[address] [place] [address] EMILIANO Madrigal [phone] documented as of this encounter
--- OUTSIDE RECORDS SUMMARY | 2022-05-19 14:44 | XMS_ITS | Clinical Summary ---
:1990 Author Organization [facility] Address [address] [place] [address] Care Team Providers Name Role Phone Judi Strickland APRN, C.N.P., D.N.P. Primary Care Provider Source Comments Patient records contain information from all sites at [facility]. For routine questions regarding patient records, call [phone] during business hours, M-F 8:00 AM - 5:00 PM Central Time. Record requests for emergency care only can be directed to [phone] at any time.[facility] Allergies No known active allergies Medications Medication Sig Dispensed Refills Start Date End Date Status MARLISSA 0.15-0.03 mg per tablet 0 017 Active FeroSuL 325 mg (65 mg iron) tablet 0 12/07 Active Active Problems Problem Noted Date Overweight Body Mass Index 25-29.9 Adult 12/21/2021 COVID-19 Infection 12/21/2021 Tendonitis Patellar Left 04/01/2015 Anemia Iron Deficiency 02/15/2011 Comments Yes Encounters Date Type Specialty Care Team Description 03/08/2022 Orders Only Mellissa Givens M.D. from Last 3 Months Immunizations Name Administration Dates Next Due 4vHPV (discontinued) 01/25/2010, 11/26/2009 DTaP (Infanrix, Tripedia) 05/26/1998, 04/16/1993, 02/17/1993 , 1992 DTaP / Hib 04/15/1994 HepA Pediatric/Adolescent 11/26/2009 HepB Pediatric/Adolescent 05/04/1993, 1992, 1992 Hib (PRP-T) (ACTHIB, HIBERIX) 11/15/1996, 04/16/1993, 1992 IPV 05/26/1998, 04/15/1994, 02/17/1993, 11/30 Influenza, Unspecified 09/23/2013, 07/16/2010 MCV4 (Menactra) 11/26/2009 MMR 04/19/2005, 01/20/1994 Td (Adult), adsorbed 04/19/2005 CARINA 11/26/2009, 04/19/2005 Family History Medical History Relation Name Comments Diabetes Mother Relation Name Status Comments Mother Social History Tobacco Use Types Packs/Day Years Used Date Smoking Tobacco: Never Smokeless Tobacco: Never Comments Yes Sex Assigned at Date Recorded Not on file Last Filed Vital Signs Vital Sign Reading Time Taken Comments Blood Pressure 122/68 12/22/2021 12:00 PM CDT Pulse 99 12/22/2021 12:00 PM CDT Temperature 36.5 ??C (97.7 ??F) 12/22/2021 12:00 PM CDT Respiratory Rate 18 12/22/2021 12:00 PM CDT Oxygen Saturation 100% 12/22/2021 12:00 PM CDT Inhaled Oxygen Concentration - - Weight 78.7 kg (173 lb 8 oz) 10/11/2017 4:29 PM INTERNAL CONTROLS CONSULTANT Height 167.6 cm (5' 6) 09/15/2017 11:20 AM INTERNAL CONTROLS CONSULTANT Body Mass Index 28 09/15/2017 11:20 AM INTERNAL CONTROLS CONSULTANT Plan of Treatment Health Maintenance Due Date Last Done Comments Cervical Cancer Screening 1990 HIV Screening 1990 Hepatitis C Screening 1990 COVID-19 Vaccine (#1) 04/14/1993 Depression Screening 10/02/2021 (Annual PHQ-2) Influenza Vaccine (#1) 2022 07/13/2020, 06/11/2019, 07/11/2018, Additional history exists DTaP,Tdap,and Td Vaccines 03/30/2032 03/30/2022, 12/26/2016 , (9 - Td or Tdap) 05/01/2014, Additional history exists Hepatitis B Vaccines Completed 05/04/1993, 05/04/1993, 1992, Additional history exists Pneumococcal vaccine (0-64 Aged Out No lo nger eligible years) based on patient 's age to complete this topic Insurance Payer Benefit Plan / Subscriber ID Effective Phone Address T ype Group Dates [place] [employer] [id number] 2018-Prese [address] Medicaid H[place] [address] [place] [address] Care Teams [employer] Certified Internetwork Expert Relationship Specialty Start Date End Date Judi Strickland, GRIS, C.N.P., D.N.P. PCP - General 07/25/[id number] [place] [address] [place] [address]
--- OUTSIDE RECORDS SUMMARY | 2022-05-19 14:44 | XMS_ITS | Clinical Summary ---
:1990 Author Organization [place] Address [address] [place] [address] Care Team Providers Name Role Phone No Ref-Primary, Physician Primary Care Provider [phone] Encounters Date Type Specialty Care Team Description 02/25/2022 Office Visit Maternal and Afsaneh Enciso Susp ected Medicine DO Emerita anomaly, antepartum, Pinky Cottrell MD single or unspecified fet us (Primary Dx) 02/25/2022 Hospital Encounter Radiology. Afsaneh Enciso Susp ected DO Emerita anomaly, antepartum, Pinky Cottrell MD single or unspecified fet us 02/25/2022 Travel from Last 3 Months Social History Tobacco Use Types Packs/Day Years Used Date Never Assessed Estimated Date of Delivery Comments Yes 06/13/2022 Based on last menstr ual period of 09/06/2021 Sex Assigned at Date Recorded Not on file Plan of Treatment Health Maintenance Due Date Last Done Comments ADVANCE CARE PLANNING 1990 ANNUAL REVIEW OF HM ORDERS 1992 PREVENTIVE CARE VISIT 1992 COVID-19 Vaccine (#1) 04/14/1993 HIV SCREENING 2007 HEPATITIS C SCREENING 2010 PAP 2013 PHQ-2 (once per calendar 10/02/2021 year) MATERNAL SCREENING 12/20/2021 OBGCT (OB) 02/21/2022 REPEAT ANTIBODY SCREEN (OB) 03/21/2022 INFLUENZA VACCINE (#1) 2022 07/13/2020, 06/11/2019, 07/11/2018, Additional history exists DTAP/TDAP/TD IMMUNIZATION 12/26/2026 12/26/2016, 05/01/2014 , (9 - Td or Tdap) 04/19/2005, Additional history exists HEPATITIS B IMMUNIZATION Completed 05/04/1993, 05/04/1993, 1992, Additional history exists IPV IMMUNIZATION Completed 05/26/1998, 04/15/1994, 02/17/1993, Additional history exists MENINGITIS IMMUNIZATION Aged Out No longe r eligible based on patient 's age to complete this topic Pneumococcal Vaccine: Aged Out No longer eligible Pediatrics (0 to 5 Years) based on patient's age and At-Risk Patients (6 to to co mplete this topic 64 Years) Procedures Procedure Name Priority Date/Time Associated Comments Diagnosis [facility] US COMPREHENSIVE Routine 02/25/2022 8:31 AM Suspected feta l Results for this SINGLE F/U CDT anomaly, procedure are i n antepartum, single the resul ts or unspecified section. fetus from Last 3 Months Results [facility] US Comprehensive Single F/U (02/25/2022 8:31 AM CDT) Anatomical Region Laterality Modality Ultrasound Specimen (Source) Anatomical Collection Method Collection Time Re ceived Time Location / / Volume Laterality 02/25/2022 7:44 AM CDT Impressions 02/25/2022 8:55 AM CDT IMPRESSION 1) Brownlee intrauterine at 2 4w 4d gestational age. 2) None of the anomalies commonly detect ed by ultrasound were evident in the limited anatomic survey as described above. The adrenal glands are slightly prominent, but overall appear within nor mal limits. 3) Growth parameters and estimated weight were consistent with established dates. 4) The amniotic fluid volume appeared no rmal. 5) Active fetus. 6) The placenta is bilobed. Narrative 02/25/2022 8:55 AM CDT Comp Follow Up Pat. Name: ARIS LEOS Study Date: 02/25/2022 7:44am Pat. NO: [id number] Referring ??MD: ZACH METZGER Site: [facility] Teletype Installer: Juliette Ocasio RD MS : 1990 Age: 31 INDICATION Prominent adrenal glands METHOD Transabdominal ultrasound examination. V iew: Sufficient Brownlee . Number of fetuses: 1 DATING ? Date ?Details ?Gest. age ?ELIZABETH LMP ?09/06/2021 ? 24 w + 4 d ? 06/13/2022 Prior assessment ? 11/09/2021 ?GA: 9 w + 1 d ? 24 w + 4 d ? 06/13/2022 U/S ? 02/25/2022 ? based upon AC, BPD, Femur, HC ? 24 w + 6 d ? 06/11/2022 Assigned dating ?Dating performed on 01/28/2022, based on the LMP ?24 w + 4 d ? 06/13/2022 GENERAL EVALUATION Cardiac activity present. FHR 151 bpm. movements present. Presentation cephalic. Placenta bi-lobed placenta with cord ins ertion into lateral/posterior portion and the vessels split, no evidence of vasa previa. Umbilical cord 3 vessel cord. Amniotic fluid Amount of AF: normal. MVP 6.7 cm. BIOMETRY Main Biometry: BPD ?60.7 ?mm ? 24w 5d ?Yarelis LAUREN ?81.1 ?mm ? 24w 4d ?Derek HC ?227.2 ?mm ?24w 5d ?Hadlock Cerebellum tr ?27.1 ? mm ?24w 4d ?Nicolaides AC ?202.5 ?mm ?24w 6d ?50% ?Hadlock Femur ?46.0 ? mm ?25w 2d ?Hadlock Humerus ?43.3 ?mm ? 25w 6d ?Debby Weight Calculation: EFW ? 758 ? g ? 59% ?Hadlock EFW (lb,oz) ? 1 lb 11 ? oz EFW by ?Hadlock ([id number]) Head / Face / Neck Biometry: Molded Parts Inspector ? 5.6 ? mm CM ?6.1 ? mm ANATOMY Abdomen ? Right adrenal gland: prominent ? Left adrenal gland: prominent The following structures appear normal: Head / Neck ? Cranium. Head size. Head shape. Lateral ventricles. Midline falx. Cavum septi pellucidi. Cerebellum. Cisterna magna. Thalami. Face ? Lips. Profile. Nose. Heart / Thorax ?4-chamber view. RVOT view. LVOT view. 7-opykpw-tecuxir view. ? Diaphragm. Abdomen ? Stomach. Kidneys. Bladder. Spine ?Cervical spine. Thoracic spine. Lumbar spine. Sacral spine. Gender: male. MATERNAL STRUCTURES Cervix ?Visualized ? Appearance: Appears Closed ? Approach - Transabdominal: Cervical length 43.7 mm Right Ovary ?Not examined Left Ovary ?Not examined RECOMMENDATION Thank-you for referring your patient to reassess growth and adrenal glands. I discussed the findings on today's ultr asound with the patient. Aris has growth ultrasounds scheduled in your office at 32 and 36 weeks due to history of macrosomia and COVID infection in . If you would like any of these to be done in our office, please let us know, but I do not think the adrenal glands need additional surveillance. Return to primary provider for continued care. If you have questions regarding today's evaluation or if we can be of further service, please contact the [facility]. anomalies may be present but not detected Procedure Note Pinky Cottrell MD - 02/25/2022 Comp Follow Up Pat. Name:Alejandro LEOS Date: 7:44am Pat. NO: [id number] MD:MARCO A METZGER [facility]Juliette ZavalaANNETTE calero :1990Age:31 INDICATION Prominent adrenal glands METHOD Transabdominal ultrasound examination. V iew: Sufficient Brownlee . Number of fetuses: 1 DATING Date Details Gest. age ELIZABETH LMP 09/06/2021 24 w + 4 d 06/13/2022 Prior assessment 11/09/2021 GA: 9 w + 1 d 24 w + 4 d 06/13/2022 U/S 02/25/2022 based upon AC, BPD, Femur, HC 24 w + 6 d 06/11/2022 Assigned dating Dating performed on 01/01, based on the LMP 24 w + 4 d 06/13/2022 GENERAL EVALUATION Cardiac activity present. FHR 151 bpm. movements present. Presentation cephalic. Placenta bi-lobed placenta with cord ins ertion into lateral/posterior portion and the vessels split, no evidence of vasa previa. Umbilical cord 3 vessel cord. Amniotic fluid Amount of AF: normal. MVP 6.7 cm. BIOMETRY Main Biometry: BPD 60.7 mm 24w 5d Hadlock OFD 81.1 mm 24w 4d Nicolaides HC 227.2 mm 24w 5d Hadlock Cerebellum tr 27.1 mm 24w 4d Nicolaides AC 202.5 mm 24w 6d 50% Hadlock Femur 46.0 mm 25w 2d Hadlock Humerus 43.3 mm 25w 6d Debby Weight Calculation: EFW 758 g 59% Hadlock EFW (lb,oz) 1 lb 11 oz EFW by Hadlock ([id number]) Head / Face / Neck Biometry: Molded Parts Inspector 5.6 mm CM 6.1 mm ANATOMY Abdomen Right adrenal gland: prominent Left adrenal gland: prominent The following structures appear normal: Head / Neck Cranium. Head size. Head sha pe. Lateral ventricles. Midline falx. Cavum septi pellucidi. Cerebellum. Cisterna magna. Thalami. Face Lips. Profile. Nose. Heart / Thorax 4-chamber view. RVOT view . LVOT view. 6-zdrgaz-drcfiai view. Diaphragm. Abdomen Stomach. Kidneys. Bladder. Spine Cervical spine. Thoracic spine. Omaira mbar spine. Sacral spine. Gender: male. MATERNAL STRUCTURES Cervix Visualized Appearance: Appears Closed Approach - Transabdominal: Cervical mellissa gth 43.7 mm Right Ovary Not examined Left Ovary Not examined RECOMMENDATION Thank-you for referring your patient to reassess growth and adrenal glands. I discussed the findings on today's ultr asound with the patient. Aris has growth ultrasounds scheduled in your office at 32 and 36 weeks due to history of macrosomia and COVID infection in . If you would like any of these to be done in our office, please let us know, but I do not think the adrenal glands need additional surveillance. Return to primary provider for continued care. If you have questions regarding today's evaluation or if we can be of further service, please contact the [facility]. anomalies may be present but not detected IMPRESSION 1) Brownlee intrauterine at 2 4w 4d gestational age. 2) None of the anomalies commonly detect ed by ultrasound were evident in the limited anatomic survey as described above. The adrenal glands are slightly prominent, but overall appear within nor mal limits. 3) Growth parameters and estimated weight were consistent with established dates. 4) The amniotic fluid volume appeared no rmal. 5) Active fetus. 6) The placenta is bilobed. Afsaneh Emerita Enciso DO IMG MFM US ORDERABLES from Last 3 Months Insurance Payer Benefit Plan Subscriber ID Effective Phone Address Typ e / Group Dates [facility] [id number] 2021-Deonte [phone] [address] [facility] [address] [place] [id number] Care Teams Office Administration Instructor Relationship Specialty Start Date End Date No Ref-Primary, Physician PCP - General 01/27/22
--- OUTSIDE RECORDS SUMMARY | 2022-05-19 14:44 | XMS_ITS | Encounter Summary ---
:1990 Author Organization [facility] Address [address] [place] [address] Care Team Providers Name Role Phone Judi Strickland APRN, C.N.P., D.N.P. Primary Care Provider Encounter Details Date Type Department Care Team Description 01/19/2021 Orders Only [facility] PCP [facility] Sa marshall Givens M.D. [address] [place], [place] [phone] (Wo rk) Social History Tobacco Use Types Packs/Day Years Used Date Smoking Tobacco: Never Smokeless Tobacco: Never Sex Assigned at Date Recorded Not on file documented as of this encounter Plan of Treatment Not on filedocumented as of this encounter Visit Diagnoses Not on filedocumented in this encounter Care Teams Smokehouse Operator Relationship Specialty Start Date End Date Judi Strickland APRN, C.N.P., D.N.P. PCP - General 07/25/[address] [place] [address] [place] [phone] documented as of this encounter
--- OUTSIDE RECORDS SUMMARY | 2022-05-19 14:44 | XMS_ITS | Encounter Summary ---
:1990 Author Organization [place] Address [facility] [place] [address] Care Team Providers Name Role Phone No Ref-Primary, Physician Primary Care Provider [phone] Afsaneh Enciso DO Unavailable [phone] Reason for Referral Diagnostic Imaging Ultrasound (Routine) - Pending Review Specialty Diagnoses / Procedures Referred By Contact Refer red To Contact Diagnoses Suspected anomaly, antepartum, single or unspecified fetus Afsaneh Enciso, Procedures [facility] US Comprehensive Single F/U DO [address] [place], [place] [address] Referral ID Status Reason Start Date Expiration Date Visits V isits Requested Authorized [id number] Pending 01/28/2022 01/28/2023 1 1 Review Reason for Visit Diagnostic Imaging Ultrasound (Routine) - Pending Review Specialty Diagnoses / Procedures Referred By Contact Refer red To Contact Diagnoses Suspected anomaly, antepartum, single or unspecified fetus Afsaneh Enciso, Procedures [facility] US Comprehensive Single F/U DO [address] [place], [place] [address] Referral ID Status Reason Start Date Expiration Date Visits V isits Requested Authorized [id number] Pending 01/28/2022 01/28/2023 1 1 Review Encounter Details Date Type Department Care Team Description 02/25/2022 Hospital Encounter [facility] Heather Sanderson DO [address] [place] [address] Suspected Maternal Pinky Cottrell MD [address] [place], [place] [phone] anomaly, [facility] antepartum, single [place] or unspecified [address] [facility] [address] [place] [address] Social History Tobacco Use Types [...] Procedure Name Priority Date/Time Associated Comments Diagnosis [facility] US COMPREHENSIVE Routine 02/25/2022 8:31 AM Suspected feta l Results for this SINGLE F/U CDT anomaly, procedure are i n antepartum, single the resul ts or unspecified section. fetus documented in this encounter Results [facility] US Comprehensive Single F/U (02/25/2022 8:31 [...] CDT Comp Follow Up Pat. Name: ARIS LESO Study Date: 02/25/2022 7:44am Pat. NO: [id number] Referring ??MD: ZACH METZGER Site: [facility] Msw: Juliette Ocasio RD MS : 1990 Age: 31 INDICATION Prominent adrenal glands METHOD Transabdominal ultrasound examination. V iew: Sufficient Brownlee . Number of fetuses: 1 DATING ? Date ?Details ?Gest. age ?ELIZABETH LMP ?09/06/2021 ? 24 w + 4 d ? 06/13/2022 Prior assessment ? / 05/2022 ?GA: 9 w + 1 d [...] Biometry: BPD ?60.7 ?mm ? 24w 5d ?Hadlock OFBonnie ?81.1 ?mm ? 24w 4d ?Nicolaides HC ?227.2 ?mm ?24w 5d ?Hadlock Cerebellum tr ?27.1 ? mm ?24w 4d ?Nicolaides AC ?202.5 ?mm ?24w 6d ?50% ?Hadlock Femur ?46.0 ? mm ?25w 2d ?Hadlock Humerus ?43.3 ?mm ? 25w 6d ?Debby Weight Calculation: EFW ? 758 ? g ? 59% ?Hadlock EFW (lb,oz) ? 1 lb 11 ? oz EFW by ?Hadlock ([id number]-FL) Head / Face / Neck Biometry: Weight And Balance Control Agent ? 5.6 ? mm CM ?6.1 ? mm ANATOMY Abdomen ? Right adrenal gland: prominent ? Left adrenal gland: prominent The following structures appear normal: Head / Neck ? Cranium. Head size. Head shape. Lateral ventricles. Midline falx. Cavum septi pellucidi. Cerebellum. Cisterna magna. Thalami. Face ? Lips. Profile. Nose. Heart / Thorax ?4-chamber view. RVOT view. LVOT view. 3-bjjtab-qqfnfak view. ? Diaphragm. Abdomen ? Stomach. Kidneys. [...] Pat. Name:Alejandro LEOS Date: 7:44am Pat. NO: [id number] :MARCO A METZGER [facility]Juliette Ocasio RDMS :1990Age:31 INDICATION Prominent adrenal glands METHOD Transabdominal [...] 1 lb 11 oz EFW by Hadlock ([id number]-FL) Head / Face / Neck Biometry: Weight And Balance Control Agent 5.6 mm CM 6.1 mm ANATOMY Abdomen Right adrenal gland: prominent Left adrenal gland: prominent The following structures appear normal: Head / Neck Cranium. Head size. Head sha pe. Lateral ventricles. Midline falx. Cavum septi pellucidi. Cerebellum. Cisterna magna. Thalami. Face Lips. Profile. Nose. Heart / Thorax 4-chamber view. RVOT view . LVOT view. 6-ocmklo-vhfwjtj view. Diaphragm. Abdomen Stomach. Kidneys. Bladder. Spine [...] fetus. 6) The placenta is bilobed. Afsaneh Enciso DO IMG M US ORDERABLES documented in this encounter Visit Diagnoses Diagnosis Suspected anomaly, antepartum, sin gle or unspecified fetus documented in this encounter Care Teams Plant Operator Control Room Operator Relationship Specialty Start Date End Date No Ref-Primary, Physician PCP - General 01/27/22 Afsaneh Enciso DO Assigned OBGYN Provider 02/06/22 04/29/[address] [place] [address] [address] [place], [place] [phone] documented as of this encounter
--- OUTSIDE RECORDS SUMMARY | 2022-05-19 14:44 | XMS_ITS | Encounter Summary ---
:1990 Author Organization [employer] Address [facility] [place] [place] [address] Care Team Providers Name Role Phone No Ref-Primary, Physician Primary Care Provider [phone] Afsaneh Enciso DO Unavailable [phone] Encounter Details Date Type Department Care Team Description 02/25/2022 Travel Social History Tobacco Use Types Packs/Day [...] on filedocumented in this encounter Care Teams Bioinformatics Scientist Relationship Specialty Start Date End Date No Ref-Primary, Physician PCP - General 01/27/22 Afsaneh Enciso DO Assigned OBGYN Provider 02/06/22 04/29/[address] [place] [address] [address] [place] [address] documented as of this encounter
--- OUTSIDE RECORDS SUMMARY | 2022-05-19 14:44 | XMS_ITS | Encounter Summary ---
:1990 Author Organization [place] Address [facility] [place] [address] Care Team Providers Name Role Phone No Ref-Primary, Physician Primary Care Provider [phone] Reason for Referral Diagnostic Imaging Ultrasound (Routine) - Pending Review Specialty Diagnoses / Procedures Referred By Contact Refer red To Contact Diagnoses Suspected anomaly, antepartum, single or unspecified fetus Afsaneh Enciso, Procedures [facility] US Comprehensive Single F/U DO [address] [place], [place] [address] Referral ID Status Reason Start Date Expiration Date Visits V isits Requested Authorized [id number] Pending 01/28/2022 01/28/2023 1 1 Review Reason for Visit Reason Comments Ultrasound L2-EIF, bilateral enlarged a drenals Encounter Details Date Type Department Care Team Description 01/28/2022 Office Visit [facility] Romana Metzger MD [facility] [address] [place] [address] Suspected anomaly, antepartum, sin gle or unspecified fetus (Primary Dx); Maternal Afsaneh Enciso, [address] [place] [address] Echogenic focus of bowel of fetus affect ing antepartum care of mother, single or unspecified fetus [facility] [address] [facility] [address] [place] [address] Social History Tobacco Use Types Packs/Day Years Used Date Never Assessed Sex Assigned at Date Recorded Not on file COVID-19 Exposure Response Date Recorded In the last 10 days, have you been in contact with No / Unsu re 01/28/2022 1:15 PM CDT someone who was confirmed or suspected to have Coronavirus/COVID-19? documented as of this encounter Progress Notes Afsaneh Enciso DO - 01/28/2022 2:00 PM CDT Please see Imaging tab under Chart Review for details of today's US. Afsaneh Enciso DO documented in this encounter Plan of Treatment Not on filedocumented as of this encounter Results [facility] US Comprehensive Single F/U (02/25/2022 8:31 [...] LEOS Study Date: 02/25/2022 7:44am Pat. NO: [id number] Referring ??: ZACH METZGER Site: [facility] Emergency Man: Juliette Ocasio RD MS : 1990 Age: [...] ?Yarelis LAUREN ?81.1 ?mm ? 24w 4d ?Nicolaides HC ?227.2 ?mm ?24w 5d ?Hadlock Cerebellum tr ?27.1 ? mm ?24w 4d ?Nicolaides AC ?202.5 ?mm ?24w 6d ?50% ?Hadlock Femur ?46.0 ? mm ?25w 2d ?Hadlock Humerus ?43.3 ?mm ? 25w 6d ?Debby Weight Calculation: EFW ? 758 ? g ? 59% ?Hadlock EFW (lb,oz) ? 1 lb 11 ? oz EFW by ?Hadlock ([id number]-AF-FL) Head / Face / Neck Biometry: Transfer Driver ? 5.6 ? mm CM ?6.1 ? mm ANATOMY Abdomen ? Right adrenal gland: prominent ? Left adrenal gland: prominent The following structures appear normal: Head / Neck ? Cranium. Head size. Head shape. Lateral ventricles. Midline falx. Cavum septi pellucidi. Cerebellum. Cisterna magna. Thalami. Face ? Lips. Profile. Nose. Heart / Thorax ?4-chamber view. RVOT view. LVOT view. 3-mefnme-srdcwds view. ? Diaphragm. Abdomen ? Stomach. Kidneys. [...] Pat. Name:Alejandro LEOS Date: 7:44am Pat. NO: [id number] MD:ROMANA METZGER [facility]Juliette Ocasio RD :1990Age:31 INDICATION Prominent adrenal glands METHOD Transabdominal [...] 1 lb 11 oz EFW by Hadlock ([id number]-FL) Head / Face / Neck Biometry: Transfer Driver 5.6 mm CM 6.1 mm ANATOMY Abdomen Right adrenal gland: prominent Left adrenal gland: prominent The following structures appear normal: Head / Neck Cranium. Head size. Head sha pe. Lateral ventricles. Midline falx. Cavum septi pellucidi. Cerebellum. Cisterna magna. Thalami. Face Lips. Profile. Nose. Heart / Thorax 4-chamber view. RVOT view . LVOT view. 7-vqeaqs-jqhoawm view. Diaphragm. Abdomen Stomach. Kidneys. Bladder. Spine [...] placenta is bilobed. Afsaneh Enciso DO IMG MFM US ORDERABLES documented in this encounter Visit Diagnoses Diagnosis Suspected anomaly, antepartum, sin gle or unspecified fetus - Primary Echogenic focus of bowel of fetus affect ing antepartum care of mother, single or unspecified fetus Suspected anomaly, antepartum, sin gle or unspecified fetus documented in this encounter Care Teams Aviation All Source Intelligence Relationship Specialty Start Date End Date No Ref-Primary, Physician PCP - General 01/27/22 documented as of this encounter
--- OUTSIDE RECORDS SUMMARY | 2022-05-19 14:44 | XMS_ITS | Encounter Summary ---
:1990 Author Organization [facility] Address [address] [place] [address] Care Team Providers Name Role Phone Judi Strickland APRN, C.N.P., D.N.P. Primary Care Provider Encounter Details Date Type Department Care Team Description 11/10/2021 Admin Visit Department of Family Judi Strickland AP RN, Medicine, [facility], C.N.P ., D.N.P. in [address] [phone] (Wo rk) Social History Tobacco Use Types [...] COVID19 Pending 11/09/2021 11/10/2021 11/11/2021 7:23 AM SONAR SUBSYSTEM EQUIPMENT OPERATOR documented as of this encounter Care Teams Utility Teller Relationship Specialty Start Date End Date Judi Strickland APRN, C.N.P., D.N.P. PCP - General 07/25/[address] [place] [phone] documented as of this encounter
--- OUTSIDE RECORDS SUMMARY | 2022-05-19 14:44 | XMS_ITS | Encounter Summary ---
:1990 Author Organization [facility] Address [address] [place] [address] Care Team Providers Name Role Phone Judi Strickland APRN, C.N.P., D.N.P. Primary Care Provider Reason for Visit Reason Comments Outpatient Infusion Episode Based Medications (Routine) - Closed Specialty Diagnoses / Procedures Referred By Contact Refer red To Contact Diagnoses COVID-19 Infection Gustavo Abbott Mc[facility] Inf Surge Cacf Procedures DC INJECTION, BEBTELOVIMAB, 175MG Meron Isaac, M.P.H. [address] [place] [address] [address] [place] [phone] Referral ID Status Reason Start Date Expiration Date Visits Requ ested Visits Authorized [id number] Closed 12/21/2021 12/21/2022 1 1 Encounter Details Date Type Department Care Team Description 12/22/2021 Infusion Department of Infusion Scra COVID-19 Infection Therapy in [place] Gustavo Isaac M.D., (Primary Dx) [place], [place] M.P.H. [address] [place] [address] [address] [place] [phone] Social History Tobacco Use Types Packs/Day Years Used Date Smoking Tobacco: Never Smokeless Tobacco: Never Sex Assigned at Date Recorded Not on file documented as of this encounter Last Filed Vital Signs Vital Sign Reading Time Taken Comments Blood Pressure 122/68 12/22/2021 12:00 PM CDT Pulse 99 12/22/2021 12:00 PM CDT Temperature 36.5 ??C (97.7 ??F) 12/22/2021 12:00 PM CDT Respiratory Rate 18 12/22/2021 12:00 PM CDT Oxygen Saturation 100% 12/22/2021 12:00 PM CDT Inhaled Oxygen Concentration - - Weight - - Height - - Body Mass Index - - documented in this encounter Progress Notes Alejandra aDy R.N. - 12/22/2021 12:00 PM CDT Patient received infusion in the [facility] for Bebtelovimab infusion. Patient education was reinforced per medication handout and questions were answered. Patient tolerated infusion well with no adverse reactions. Vitals signs remained stable and patient was observed post infusion per protocol. Patient was being discharged from the infusion center in a stable condition and escorted directly to [address]. documented in this encounter Plan of Treatment Not on filedocumented as of this encounter Visit Diagnoses Diagnosis COVID-19 Infection - Primary documented in this encounter Administered Medications Inactive Administered Medications - up to 3 most recent administrations Medication Order MAR Action Action Date Dose Rate Site bebtelovimab injection 175 mg Given 12/22/2021 12:10 PM CDT 175 mg 175 mg, intravenous, Once, On Mon12/22/21 at 1200, For 1 dose, Patient/caregiver factsheet: https://www.fda.gov/media/446053/ download Preparation: Remove vial from refrigerated storage and allow to equilibrate to room temperature for approximately 20 minutes before preparation. Do not expose to direct heat. Do not shake vial. Inspect the vial. Withdraw 2 mL from the vial into the disposable syringe. Discard any product remaining in the vial. This product is preservative-free and therefore, should be administered immediately. IV push over at least 30 seconds. Flush the IV set with 0.9% normal saline to ensure delivery of the required dose., Attestation: Under FDA EUA: Patient education has been provided and documented, and patient consent obtained, Criteria: Adults and Pediatrics (Pediatrics: >= 12 years and >=40 kg), Indication of use: Outpatient or observation patient: Mild to moderate COVID-19 treatment, AND meeting at least one of the following: Body mass index (BMI) >=25, sodium chloride 0.9 % injection 10 mL Given 12/22/2021 12:11 PM CDT 10 mL 10 mL, intra-catheter, As needed, line care, Starting on Mon12/22/21 at 1155, Prior to blood sampling, post blood transfusion, or post blood sampling. Given 12/22/2021 12:10 PM CDT 10 mL documented in this encounter Additional Health Concerns Infection Onset Date Last Indicated Resolved Time [id number]: Symptom onset 12/21/2021 12/21/2021 5:38 AM CDT 12/18/21 documented as of this encounter Care Teams Landfill Gas Collection System Operator Relationship Specialty Start Date End Date Judi Strickland APRN, C.N.P., D.N.P. PCP - General 07/25/[address] [place] [phone] documented as of this encounter
--- OUTSIDE RECORDS SUMMARY | 2022-05-19 14:45 | XMS_ITS | Encounter Summary ---
:1990 Author Organization [facility] Address [address] [place] [address] Care Team Providers Name Role Phone Judi Strickland APRN, C.N.P., D.N.P. Primary Care Provider Reason for Visit Reason Comments COVID Nurse Line Encounter Details Date Type Department Care Team Description 01/16/2020 Clinical Communication Central Appointment Line, Covid COVID Nurse Line Office in [facility] [address] [place] [address] Social History Tobacco Use Types Packs/Day Years Used Date Smoking Tobacco: Never Smokeless Tobacco: Never Sex Assigned at Date Recorded Not on file documented as of this encounter Miscellaneous Notes Telephone Encounter - Erica Neal R.N., C.C.T.C. - 01/16/2020 4:04 PM CDT COVID-19 Nurse Line Screening Aicha calls today with possible symptoms of COVID-19. She denies exposure to anyone with confirmed COVID-19. She reports symptoms of low-grade fever (99.4), scratchy throat, diarrhea, and myalgias. ASSESSMENT COVID 19 Screening Have you had close contact with a person who has a LABORATORY CONFIRMED case of COVID-19?: No - Continue screening. In the last 48 hours have you had any of the following symptoms?: New sore throat, New diarrhea, Newmyalgias (muscle aches) Do you have any urgent symptoms?: None- Patient meets criteria for testing. PLAN Endpoint recommendation: Screening positive, testing indicated, advised to be swabbed for COVID-19, sent to [place], [place] and Self-isolation, quarantine at home Care Points provided: Standard precautions for all patients: Wash hands often with soap and water for at least 20 seconds, especially after blowing your nose, coughing, sneezing, or having been in a public place. If soap and water aren't available, use a hand event lighting specialist that contains at least 60% alcohol. Avoid close contact with anyone who may be exhibiting respiratory symptoms such as coughing and sneezing. Avoid touching your eyes, nose and mouth. Clean and disinfect frequently touched surfaces daily. Cover your mouth and nose with a cloth face cover when around others or in public. The cloth face cover is not a substitute for social distancing. Continue to keep about 6 feet between yourself andothers. Stay home as much as possible (only going out for essential items or medical care). Educational Resource: https://www.cdc.gov/coronavirus/2019-ncov/jydttkz-vhhhspd-bqdg/index.html Recommendations as testing criteria is met: Stay home except to get medical care. Avoid public areas(do not go to work, school, etc). Avoid public transportation, riding sharing (if possible) or taxis. Stay in a specific sick room if possible and away from other people and pets in your home. Use a s eparate bathroom if possible. Wear a cloth face covering, over your nose and mouth if you must be around other people even at home). Contact employer/occupational health department to notify them that they are being tested. Go to the nearest emergency department if any of the following occur: 1) New shortness of breath at rest, 2) Pain, pressure or tightness unrelated to coughing in the chest, jaw orarm, 3) Newly confused or unable to stay alert and awake. Notify primary care provider if any new orworsening symptoms. Education Resources: https://www.cdc.gov/coronavirus/2019-ncov/wm-cps-cyr-sick/st qpi-szfi-qwhz.html Education: patient/caregiver Patient/caregiver able to teach back Patient agreeable to plan of care: Yes The following references were used: [facility] novel coronavirus (COVID- 19) resources CDC web site https://www.cdc.gov/coronavirus/2019-ncov/summary.html [facility] ([facility]) Guidelines for self-isolation Nursing judgement documented in this encounter Plan of Treatment Not on filedocumented as of this encounter Visit Diagnoses Not on filedocumented in this encounter Care Teams Universal Branch Consultant Relationship Specialty Start Date End Date Judi Strickland APRN, C.N.P., D.N.P. PCP - General 07/25/[address] [place] [phone] documented as of this encounter
--- OUTSIDE RECORDS SUMMARY | 2022-05-19 14:45 | XMS_ITS | Encounter Summary ---
:1990 Author Organization [facility] Address [address] [place] [address] Care Team Providers Name Role Phone Judi Strickland APRN, C.N.P., D.N.P. Primary Care Provider Reason for Visit Reason Onset Date Comments Outpatient COVID-19 Testing 01/16/2020 Encounter Details Date Type Department Care Team Description 01/16/2020 External Outreach Department of [facility] Leann Garrido [facility] Medicine, [place] [facility] (Primary Clinic, in [place], [address] Dx) [place], [place] [address] [address] [place], [place] [phone] (Work) [phone] Social History Tobacco Use Types Packs/Day Years Used Date Smoking Tobacco: Never Smokeless Tobacco: Never Sex Assigned at Date Recorded Not on file documented as of this encounter Progress Notes Del Garrido P.A.Prieto - 01/16/2020 4:19 PM CDT Encounter created for the drive-through COVID-19 testing. documented in this encounter Miscellaneous Notes Result Encounter Note - Татьяна Gerardo - 01/17/2020 3:59 PM CDT Result Letter sent to patient with negative COVID-19 result. documented in this encounter Plan of Treatment Not on filedocumented as of this encounter Procedures Procedure Name Priority Date/Time Associated Diagnosis Comme nts SARS CORONAVIRUS-2, Routine 01/16/2020 4:46 PM Infection Upper Results for this PCR CDT Respiratory procedure are i n the results section. documented in this encounter Results SARS Coronavirus-2, PCR (01/16/2020 4:46 PM CDT) [facility] Method Time Signature SARS Swab, 01/17/2020 [facility] Coronavirus-2 Nasopharynx 3:48 PM CDT Source SARS Undetected Undetected 01/17/2020 [facility] Coronavirus-2 3:48 PM CDT , PCR Comment: SARS-CoV-2 RNA absent. This result does not rule out COVID-19 in the patient, as the sensitivity of the test depends o n the timing of the specimen collection and quality of the specimen. Result should be correlated with patient's history and clinical presentat ion. ----ADDITIONAL INFORMATION---- This test was developed and its performa nce characteristics determined by [facility] in a manner co nsistent with CLIA requirements. Independent review by the U.S. Food and Drug Administration is pending. Visit the CDC website: https://www.cdc.gov/coronavirus/ ?? for the most recent guidelines on [place] virus testing. Fact Sheet for Healthcare Providers: (https://www.SeeYourImpact.org.Loci Controls/it-mmfil es/ Provider_Fact_Sheet_for_[facility]_COVI D-19.pdf) Fact Sheet for Patients: (https://www.SeeYourImpact.org.Loci Controls/it-mmfil es/ Patient_Fact_Sheet_for_COVID-19.pdf) Specimen Anatomical Collection Method Collection Time Receive d Time (Source) Location / / Volume Laterality Varies 01/16/2020 4:46 PM 0 8:45 (Nasopharynx) CDT PM CDT Del Garrido P.A.-C. LAB MICROBIOLOGY - GENERAL O RDERABLES Performing Organization Address City/State/ZIP Code Phon e Number [facility] - [address] [place], [place] [address] [place] [address] [facility] [address] documented in this encounter Visit Diagnoses Diagnosis Infection Upper Respiratory - Primary documented in this encounter Care Teams Parachute Panel Joiner Relationship Specialty Start Date End Date Judi Strickland APRN, C.N.P., D.N.P. PCP - General 07/25/[id number] [place] [phone] documented as of this encounter
--- OUTSIDE RECORDS SUMMARY | 2022-05-19 14:45 | XMS_ITS | Encounter Summary ---
:1990 Author Organization [facility] Address [address] [place] [address] Care Team Providers Name Role Phone Unavailable Primary Care Provider Unavailable Encounter Details Date Type Department Care Team Description 09/23/2013 Hospital Encounter HX [facility] ME Brenna Craig, GRIS, C.N.P., D. N.P. [address] [place] [address] (Wo rk) Social History Tobacco Use Types Packs/Day Years Used Date Smoking Tobacco: Never Assessed Sex Assigned at Date Recorded Not on file documented as of this encounter Last Filed Vital Signs Vital Sign Reading Time Taken Comments Blood Pressure 106/66 09/23/2013 10:38 AM COMPUTER PUBLISHER Pulse 96 09/23/2013 10:38 AM COMPUTER PUBLISHER Temperature - - Respiratory Rate - - Oxygen Saturation - - Inhaled Oxygen Concentration - - Weight 82.6 kg (182 lb 1.6 oz) 09/23/2013 10:38 AM COMPUTER PUBLISHER Height 166 cm (5' 5.35) 09/23/2013 10:38 AM COMPUTER PUBLISHER Body Mass Index 29.98 09/23/2013 10:38 AM COMPUTER PUBLISHER documented in this encounter Progress Notes Brenna Craig, Bonnie.N.P., C.N.P. - 09/23/2013 10:27 AM CST [id number] CHIEF COMPLAINT/REASON FOR VISIT Positive test. HISTORY OF PRESENT ILLNESS The patient is a 22-year-old female that presents to the clinic with her significant other today in which she indicates that she had 4 positive home tests and wanted to come in today for further evaluation. She indicates that first day of her last period was on August 21, 2013. She indicates that she has not been doing anything for prevention. She indicates that she is not having nausea or vomiting and indicates that she is not having any breast tenderness. She wanted to come in today for further evaluation. She otherwise indicates that she is continuing to smoke half a pack per day but indicates that she has not smoked as of September 20, 2013. PAST MEDICAL/SURGICAL HISTORY Reviewed. Please see chart. FAMILY HISTORY Reviewed. Please see chart. MEDICATIONS Reviewed. Please see chart. ALLERGIES Reviewed. Please see chart. PHYSICAL EXAMINATION GENERAL: The patient is an alert, well-nourished, 22-year-old female that appears to be in no acute distress. HEAD: Normocephalic, atraumatic. Remainder of further examination deferred at this time. LABS: Urine hCG was obtained and noted to be positive. IMPRESSION/REPORT/PLAN . PLAN: Discussed the overall findings at length with the patient. Presently, at this time, I encouraged the patient to refrain from tobacco usage as side effects on the fetus were discussed with the patient. Also advised to start a multivitamin 1 tablet by mouth daily. She was given the [facility] What to Expect During book as she was deferred to this book for any [id number] medication usage. I also advised that she is getting adequate rest and adequate nutrition. Recommend that she follow up for her first visit week 10 to week 12 of gestation. Estimated due dateis a calculated on May 28, 2013. The patient stated she understands this plan as she otherwise denied having any further questions. Patient was also given her influenza vaccine prior to discharge from the clinic (please see nurse's documentation). Patient denied having any further issues. Patient ambulated out of the clinic in no acute distress. Brenna Craig, Bonnie.N.P./F.N.P/ash Electronically Signed By: BRENNA CRAIG DNP, FNP On: 09/27/2013 04:31 PM Source: [facility] MHSDOLBEYNONRADSYS Document Id: [id number] UTER PUBLISHER documented in this encounter Miscellaneous Notes Miscellaneous - Anastacia, Historical Provider Ser - 10/23/2013 10:39 AM COMPUTER PUBLISHER General Message Document Contains Addenda Addendum by SUSHANT BRASHER V on 24 October 2013 09:10:30 COMPUTER PUBLISHER pt updated Addendum by OFELIA RICARDO RN, CODING SPEC on 24 October 2013 07:43:18 COMPUTER PUBLISHER From: OFELIA RICARDO RN, CODING SPEC To: SUSHANT BRASHER V; Sent: 10/24/2013 07:43:18 COMPUTER PUBLISHER Subject: RE: General Message she can do that. From: SUSHANT BRASHER V To: OFELIA RICARDO RN, CODING SPEC; Sent: 10/23/2013 10:39:00 COMPUTER PUBLISHER Subject: General Message Pt was seen 09/27 by Brenna with positive test. EDC 05/28/14. Declined to share who she willbe seeing for OB. Wants your permission to dye hair using non-ammonia hair dye. Please advise Source: [facility] POWERCHART Document Id: [id number] Miscellaneous - Brenna Craig, D.N.P., C.N.P. - 09/23/2013 11:13 AM COMPUTER PUBLISHER Ambulatory Depart Summary [address] [address] Visit Information Name: ARIS CRAIG LELIA [facility] Number: [id number] Visit Date: 09/23/2013 11:13:26 Attending Provider: BRENNA CRAIG DNP, BOND BROKER Primary Care Provider: OFELIA RICARDO RN, CODING SPEC CRAIG, ARIS ROWELL has been given the following list of medications: Your Medications It is important to take your medications as directed. Use a pill box or chart to help remind you to take your medications. Please let your doctor or nurse know if you have problems taking your medications. Medication/Strength How to Take Indications/Special Instructions/Comments/Notes for Patient Medication Changes/Routing No Medications found Stop Taking the Following Medications: Medication list as of 09-23-13 11:13 Attention: If you have any medications at home that are not on this list, DO NOT take them until youcontact your provider for clarification. Give a copy of your medication list to your primary care provider. Update your medication list any time medications or doses are changed and carry your medication list at all times in case of emergency. Additional Information: Source: [facility] POWERCHART Document Id: [id number] UTER PUBLISHER Miscellaneous - Brenna Craig D.N.P., C.N.P. - 09/23/2013 11:13 AM COMPUTER PUBLISHER Ambulatory Patient Summary [address] [address] Visit Information Name: ARIS CRAIG [facility] Number: [id number] Current Date: 09/23/2013 11:13:26 Physicians Attending Provider: BRENNA CRAIG DNP, BOND BROKER Primary Care Provider: OFELIA RICARDO RN, CODING SPEC ARIS CRAIG has been given the following list of follow-up instructions, medication list, and patient education materials: Follow-up Instructions Your Medications Here is a list of your medications. It is important to take your medications as directed. Use a pillbox or chart to help remind you to take your medications. Please let your doctor or nurse know if you have problems taking your medications. Medication/Strength How to Take Indications/Special Instructions/Comments/Notes for Patient Medication Changes/Routing No Medications found Stop Taking the Following Medications: Medication list as of 09-23-13 11:13 Attention: If you have any medications at home that are not on this list, DO NOT take them until youcontact your provider for clarification. Give a copy of your medication list to your primary care provider. Update your medication list any time medications or doses are changed and carry your medication list at all times in case of emergency. Your Allergies & Intolerances Substance Reaction Symptoms Category Comments No Known Allergies Drug Your Problem List Problem Status Onset Comments Tinea pedis Active 10/02/2010 Iron deficiency anemia Active 06/28/2010 Your Upcoming Appointments Date Time Location Reason Provider No Appointments found Attention: Contact your local Clinic if further appointment detail needed. Your Goals/Additional instructions: Source: [facility] POWERCHART Document Id: [id number] UTER PUBLISHER Miscellaneous - Lion Massey L.P.N. - 09/23/2013 10:48 AM CST Health Assessment Health Assessment Entered On: 09/23/2013 10:48 COMPUTER PUBLISHER Performed On: 09/23/2013 10:48 COMPUTER PUBLISHER by LION MASSEY LPN Health Assessment Complete Health Assessment Complete or Modified : Annual Health Assessment Annual Health Assessment Completed : Yes LION MASSEY LPN - 09/23/2013 10:48 COMPUTER PUBLISHER Nutrition Nutrition Risk Factors by History Adult : None LION MASSEY LPN - 09/23/2013 10:48 COMPUTER PUBLISHER Functional Current Daily Living Assistance : None LION MASSEY LPN - 09/23/2013 10:48 COMPUTER PUBLISHER Dependent Habits Tobacco Use/Currently Using : No Exposure to Tobacco Smoke : Care provider denies smoking in home Smoking Status : Former smoker LION MASSEY LPN - 09/23/2013 10:48 COMPUTER PUBLISHER Tobacco Use Grid Type : Cigarettes Cigarette Use Packs/Day : 0.5 Last Use : 09-20-13 LION MASSEY LPN - 09/23/2013 10:48 COMPUTER PUBLISHER Caffeine Use Grid Caffeine Use : None Last Use : 09-20-13 LION MASSEY LPN - 09/23/2013 10:48 COMPUTER PUBLISHER Recreational Drug Use Grid Drug Use : None LION MASSEY LPN - 09/23/2013 10:48 COMPUTER PUBLISHER Psychosocial Domestic Abuse Concerns : None LION MASSEY LPN - 09/23/2013 10:48 COMPUTER PUBLISHER Advance Directive Advanced Directives : No Advance Directive Additional Information : No LION MASSEY LPN - 09/23/2013 10:48 COMPUTER PUBLISHER Educ Needs Learning Style Preference Adult Grid Patient : None Family : None LION MASSEY LPN - 09/23/2013 10:48 COMPUTER PUBLISHER Source: [facility] POWERCHART Document Id: [id number] COMPUTER PUBLISHER!33 UTER PUBLISHER Miscellaneous - Lion Massey L.PAniaNAnia - 09/23/2013 10:38 AM CST Adult Rn Postpartum Intake/History Document Has Been Updated Adult Rn Postpartum Intake/History Entered On: 09/23/2013 10:38 COMPUTER PUBLISHER Performed On: 09/23/2013 10:38 COMPUTER PUBLISHER by LION MASSEY LPN Intake Chief Complaint : Missed period and 4 positive home prenancy tests. Temperature Core : 36.4 DegC(Converted to: 97.5 DegF) (LOW) Peripheral Pulse Rate : 96 /min Systolic Blood Pressure : 106 mmHg Diastolic Blood Pressure : 66 mmHg NIBP Mean : 79 mmHg BP Location : Left upper extremity Blood Pressure Cuff Size : Regular SpO2 : 99 % Oxygen Therapy : Room air Height : 166.0 cm(Converted to: 5 ft 5 inch(es), 65.35 inch(es)) Actual Weight : 82.6 kg(Converted to: 182 lb 2 oz) Dosing Weight Clinic : 82.6 kg Clinic BSA : 1.95 Body Mass Index : 29.98 kg/m2 LION MASSEY LPN - 09/23/2013 10:41 COMPUTER PUBLISHER Weight Source : Standing scale LION MASSEY LPN - 09/23/2013 10:38 COMPUTER PUBLISHER General Info Information Given By : Patient Languages : Croatian LION MASSEY LPN - 09/23/2013 10:38 COMPUTER PUBLISHER Subjective Pain Symptoms : No LION MASSEY LPN - 09/23/2013 10:38 COMPUTER PUBLISHER Dependent Habits Alcohol Use : No LION MASSEY LPN - 09/23/2013 10:41 COMPUTER PUBLISHER Tobacco Use/Currently Using : No Tobacco Use/Last 12 months : No Tobacco Use/Advised to Quit : No Exposure to Tobacco Smoke : Care provider denies smoking in home Smoking Status : Former smoker LION MASSEY LPN - 09/23/2013 10:38 COMPUTER PUBLISHER LION MASSEY LPN - 09/23/2013 10:38 COMPUTER PUBLISHER Tobacco Use Grid Type : Cigarettes Cigarette Use Packs/Day : 0.5 Last Use : 09-20-13 LION MASSEY [facility] - 09/23/2013 10:41 COMPUTER PUBLISHER Caffeine Use Grid Caffeine Use : None Type : Frequency : Amount : Last Use : 09-20-13 LION MASSEY [facility] - 09/23/2013 10:41 COMPUTER PUBLISHER Recreational Drug Use Grid Drug Use : None LION MASSEY [facility] - 09/23/2013 10:38 COMPUTER PUBLISHER Source: [facility] POWERCHART Document Id: [id number] COMPUTER PUBLISHER!45 UTER PUBLISHER documented in this encounter Plan of Treatment Not on filedocumented as of this encounter Procedures Procedure Name Priority Date/Time Associated Diagnosis Comme nts TEST, U Routine 09/23/2013 10:46 AM Res ults for this COMPUTER PUBLISHER procedure are i n the results section. documented in this encounter Results Test, Qualitative, Urine (09/23/2013 10:46 AM COMPUTER PUBLISHER) [facility] gist Method Time Signature HXBeta-hCG Positive POWERCHART Qualitative Urine Specimen (Source) Anatomical Collection Method Collection Time Re ceived Time Location / / Volume Laterality Urine 09/23/2013 10:46 AM COMPUTER PUBLISHER Brenna Craig APRN, C.N.P., D.N.P. LAB URINE EPI VO Performing Organization Address City/State/ZIP Code Phon e Number POWERCHART documented in this encounter Visit Diagnoses Not on filedocumented in this encounter
--- OUTSIDE RECORDS SUMMARY | 2022-05-19 14:45 | XMS_ITS | Encounter Summary ---
:1990 Author Organization [facility] Address [address] [place] [address] Care Team Providers Name Role Phone Unavailable Primary Care Provider Unavailable Encounter Details Date Type Department Care Team Description 09/20/2015 Hospital Encounter HX NO MAPPING Jovi Alvarado P.A.-C., M.S. [address] [place], [place] [phone] (Wo rk) Social History Tobacco Use Types Packs/Day Years Used Date Smoking Tobacco: Never Assessed Sex Assigned at Date Recorded Not on file documented as of this encounter Last Filed Vital Signs Vital Sign Reading Time Taken Comments Blood Pressure 124/75 09/20/2015 3:00 PM PICKED EDGE SEWING MACHINE OPERATOR Pulse 104 09/20/2015 3:00 PM PICKED EDGE SEWING MACHINE OPERATOR Temperature - - Respiratory Rate - - Oxygen Saturation - - Inhaled Oxygen Concentration - - Weight - - Height 166 cm (5' 5.35) 09/20/2015 3:00 PM PICKED EDGE SEWING MACHINE OPERATOR Body Mass Index - - documented in this encounter Discharge Summaries Suzanne Riley, L.P.N. - 09/20/2015 3:26 PM CST ED Discharge Instructions [facility] [address] [place] [address]. [place] [address] Name: ARIS FELIX Date of : 1990 12:00 AM Visit Date: 09/20/2015 2:21 PM [facility] Number: [id number] Address: [address] [facility] [address] Primary Care Provider: NICOLE SANTANA MD IMPORTANT: [facility] in [place] would like to thank you for allowing us to assist you with your healthcare needs. The following includes patient education materials and information regarding your injury/illness. Diagnosis: Bronchitis Acute; Sinusitis Acute NOS Follow-Up Instructions: With: Address: When: NICOLE MATTHEWPOOJADAVID [address] [place] [address] Business (1) Within As Needed Your Upcoming Appointments: Date Time Location Provider No Appointments found Patient Education Materials: Bronchitis (Adult: Abx Tx) BRONCHITIS is an infection of the air passages (bronchial tubes). It often occurs during the common cold. Symptoms include cough with mucus (phlegm) and low-grade fever. Bronchitis usually lasts 7-14 days. Mild cases can be treated with simple home remedies. More severe infection is treated with an antibiotic. Home Care: If symptoms are severe, rest at home for the first 2-3 days. When you resume activity, don't let yourself get too tired. Do not smoke. Avoid being exposed to the smoke of others. You may use acetaminophen (Tylenol) or ibuprofen (Motrin, Advil) to control fever or pain, unless another medicine was prescribed for this. [NOTE: If you have chronic liver or kidney disease or ever had a stomach ulcer or GI bleeding, talk with your doctor before using these medicines.] Your appetite may be poor, so a light diet is fine. Avoid dehydration by drinking 6-8 glasses of fluids per day (water, soft, drinks, juices, tea, soup, etc.). Extra fluids will help loosen secretions in the lungs. Ublo-emb-xtpxbdg cough medicines that contain dextromethorphan (such as Robitussin DM) and decongestants (Actifed or Sudafed) may help relieve cough and congestion. [NOTE: Do not use decongestants if you have high blood pressure.] Finish all antibiotic medicine, even if you are feeling better after only a few days. Follow Up with your doctor or as directed if you dont start to feel better after three days. [NOTE: If you are age 65 or older, or if you have chronic asthma or COPD, we recommend a PNEUMOCOCCAL VACCINATION every five years and a yearly INFLUENZAVACCINATION (FLU-SHOT) every . Ask your doctor about this. If you had an X-ray, a radiologist will review it. You will be notified of any new fi ndings that may affect your care.] Get Prompt Medical Attention if any of the following occur: ?? Fever over 100.4?F (38.0?C) for more than three days ?? Trouble breathing, wheezing or pain with breathing ?? Coughing up blood or increased amounts of colored sputum ?? Weakness, drowsiness, headache, facial pain, ear pain or a stiff neck ?? [id number] [facility], [address] [place] [address]. All rights reserved. This information is not intended as a substitute for professional medical care. Always follow your healthcare professional's instructions. Consider Using Patient Online Services Patient Online Services is a secure online and Mobile application that lets you: ?? View lab and test results ?? View portions of your medical record including clinical notes, immunizations and discharge summaries ?? Request an appointment or medication refill ?? Review your appointment schedule ?? Send secure messages to your care team Its easy to create an account if you dont have one. Go to [email or web address] and click on Create Your Account. Then, follow the directions to complete the online form. Youll be asked for your [facility] number which you can find at the top of this document. ED Tests and Procedures: Order Status Discharge Prescriptions & Home Medications: Medication/Strength Dose Route Frequency Indications/Special Instructions/Comments/Notes amoxicillin-clavulanate (Augmentin 875 mg-125 mg oral tablet) 1 tab(s) Oral two times a day for 7 Days Comment: Attention: If you have any medications at home that are not on this list, DO NOT take them until youcontact your provider for clarification. Give a copy of your medication list to your primary care provider. Update your medication list any time medications or doses are changed and carry your medication list at all times in case of emergency. IMPORTANT: We examined and treated you today on an emergency basis only. This was not a substitute for, or an effort to provide, complete medical care. In most cases, you must let your doctor check youagain. Tell your doctor about any new or lasting problems. We cannot recognize and treat all injuries or illnesses in one Emergency Department visit. If you had special tests, such as EKG's or X- rays, we will review them again within 24 hours. We will call you if there are any new suggestions. Please follow the instructions above carefully. If you are being transferred to another facility your followup plan of care will be determined by the receiving facility. If you are a patient that is being discharged from the Emergency Department after receiving narcotics or other medications that may impair your judgment you may be a risk to yourself or others if you operate a motor vehicle. We recommend that you arrange a ride home with a responsible alliance party. DAFNE Barroso HAYLEY ANNE , or responsible alliance party have received this information and my questions have been answered. I have discussed any challenges I see with this plan with the nurse or physician. Patient Signature or Responsible Republican/Relationship Date Time Provider Signature Date Time IMPORTANT: We examined and treated you today on an emergency basis only. This was not a substitute for, or an effort to provide, complete medical care. In most cases, you must let your doctor check youagain. Tell your doctor about any new or lasting problems. We cannot recognize and treat all injuries or illnesses in one Emergency Department visit. If you had special tests, such as EKG's or X- rays, we will review them again within 24 hours. We will call you if there are any new suggestions. Please follow the instructions above carefully. If you are being transferred to another facility your followup plan of care will be determined by the receiving facility. If you are a patient that is being discharged from the Emergency Department after receiving narcotics or other medications that may impair your judgment you may be a risk to yourself or others if you operate a motor vehicle. We recommend that you arrange a ride home with a responsible alliance party. DAFNE Barroso HAYLEY ANNE or responsible alliance party have received this information and my questions have been answered. I have discussed any challenges I see with this plan with the nurse or physician. Patient Signature or Responsible Republican/Relationship Date Time Provider Signature Date Time This document has images extracted. Please consider using [employer] for all your patient education needs. Source: [facility] POWERCHART Document Id: [id number] ED EDGE SEWING MACHINE OPERATOR Suzanne Riley L.P.N. - 09/20/2015 3:26 PM CST ED Depart Summary [facility] Emergency Department Clinical Discharge Summary PERSON INFORMATION Name ARIS FELIX Age 24 Years 1990 12:00 AM Sex Female Language Croatian PCP NICOLE SANTANA MD Marital Status Single N [id number] Visit Id Visit Reason UC - Cough; cough Specialty Enc Type [facility] Outpatient Med Service Urgent Care Referred by Track Group [facility] ED Discharge 09/20/2015 3:25 PM Tracking Id [id number] Checkout 09/20/2015 3:25 PM Checkin 09/20/2015 2:21 PM Acuity 4 -Less Urgent Dispo Type * Discharged to Home or Self Care Arrival 09/20/2015 2:21 PM Reg Status Complete LOS 000 01:04 Address: [address] [facility] [address] Comment: PROVIDER INFORMATION Provider Role Provider Contact Time AGNES GARCIA LPN ED Nurse 09/20/15 14:59 JOVI ALVARADO PA-C ED Provider 09/20/15 15:16 DIAGNOSIS Bronchitis Acute; Sinusitis Acute NOS Comment: PATIENT EDUCATION INFORMATION Instructions: BRONCHITIS, Abx Tx (Adult) Follow up: With: Address: When: NICOLE SANTANA [address] [place] [phone] Business (1) Within As Needed Source: [facility] POWERCHART Document Id: [id number] ED EDGE SEWING MACHINE OPERATOR documented in this encounter Progress Notes Jovi Alvarado P.A.-C., M.S. - 09/20/2015 2:21 PM CST [id number] CHIEF COMPLAINT/REASON FOR VISIT Cough. HISTORY OF THE ILLNESS Aris is here for evaluation of cough x2 weeks, not getting any better. Productive for small amounts of sputum. No chest tightness, dyspnea, or wheezing. She has associated nasal congestion, facial pain/pressure, and postnasal drip. Denies any fever or chills. MEDICATIONS Per Cerner. ALLERGIES Per Cerner. VITAL SIGNS Temperature 36.4, blood pressure 124/75, heart rate 104. PHYSICAL EXAMINATION GENERAL: Patient is a 24-year-old female, alert, in no acute distress. HEENT: Head, skull: NC/AT. Eyes: Sclerae white. Conjunctivae pink without discharge. Ears: Canals clear. Tympanic membranes normal. Nose: Mucosa with mild edema, erythema, and tender over maxillary sinus. Throat: No oral lesions. Uvula midline. Palate rises symmetrically. Pharynx without erythema or exudate. NECK: Lymph nodes nonpalpable. Thyroid not enlarged. RESPIRATORY: Normal breath sounds throughout. CARDIOVASCULAR: Regular rate and rhythm. No extra heart sounds or murmur. IMPRESSION/REPORT/PLAN Acute sinusitis. Augmentin 875/125 mg 2 times daily x7 days. Reviewed home cares. Recheck as needed. Jovi Alvarado P.A.-C./radha Electronically Signed By: JOVI ALVARADO PA-C On: 09/27/2015 04:24 PM Modified by and Electronically Signed by: JOVI ALVARADO PA-C On: 09/27/2015 04:24 PM Source: [facility] MHSDOLBEYNONRADSYS Document Id: [id number] ED EDGE SEWING MACHINE OPERATOR documented in this encounter H&P Notes Agnes Garcia R.N. - 09/20/2015 3:00 PM CST Urgent Care Intake Urgent Care Intake Entered On: 09/20/2015 15:02 PICKED EDGE SEWING MACHINE OPERATOR Performed On: 09/20/2015 15:00 PICKED EDGE SEWING MACHINE OPERATOR by AGNES GARCIA LPN Intake Chief Complaint : Productive cough Onset of Symptoms : x 2 weeks Temperature Core : 36.4 DegC(Converted to: 97.5 DegF) (LOW) Peripheral Pulse Rate : 104 /min (HI) Systolic Blood Pressure : 124 mmHg Diastolic Blood Pressure : 75 mmHg NIBP Mean : 91 mmHg SpO2 : 98 % Oxygen Therapy : Room air Height : 166 cm(Converted to: 5 ft 5 inch(es), 65 inch(es)) AGNES GARCIA LPN - 09/20/2015 15:00 PICKED EDGE SEWING MACHINE OPERATOR General Info Information Given By : Patient Languages : Croatian Is Patient Female and 13-50 no hysterectomy : Yes Status : Patient denies Are you ? : No AGNES GARCIA LPN - 09/20/2015 15:00 PICKED EDGE SEWING MACHINE OPERATOR Subjective Pain Symptoms : No AGNES GARCIA LPN - 09/20/2015 15:00 PICKED EDGE SEWING MACHINE OPERATOR Dependent Habits Exposure to Tobacco Smoke : Care provider denies smoking in home Smoking Status : Current some day smoker Tobacco 2A : Yes Tobacco Use/Currently Using : Yes Tobacco Use/Last 30 Days : Yes Tobacco Use/Last 12 months : Yes Type : Cigarettes: Less than 20 per day Tobacco Use/Advised to Quit : No AGNES GARCIA LPN - 09/20/2015 15:00 PICKED EDGE SEWING MACHINE OPERATOR Caffeine Use Grid Caffeine Use : None Last Use : 09-20-13 AGNES GARCIA LPN - 09/20/2015 15:00 PICKED EDGE SEWING MACHINE OPERATOR Recreational Drug Use Grid Drug Use : None AGNES GARCIA LPN - 09/20/2015 15:00 PICKED EDGE SEWING MACHINE OPERATOR Nutrition Nutrition Risk Factors by History Adult : None AGNES GARCIA LPN - 09/20/2015 15:00 PICKED EDGE SEWING MACHINE OPERATOR Functional Current Daily Living Assistance : None AGNES GARCIA LPN - 09/20/2015 15:00 PICKED EDGE SEWING MACHINE OPERATOR Psychosocial Domestic Abuse Concerns : None Behavioral Health Screen/Safety Assmt : No Hindu Preference : No qualifying data available. AGNES GARCIA CORE RESCUER - 09/20/2015 15:00 PICKED EDGE SEWING MACHINE OPERATOR Advance Directive Advanced Directives : No Advance Directive Additional Information : No AGNES GARCIA ARPAN - 09/20/2015 15:00 PICKED EDGE SEWING MACHINE OPERATOR Educ Needs Learning Style Preference Adult Grid Patient : None Family : None AGNES GARCIA ARPNA - 09/20/2015 15:00 PICKED EDGE SEWING MACHINE OPERATOR Source: [facility] ProsperWorksCHART Document Id: [id number] PICKED EDGE SEWING MACHINE OPERATOR!51 ED EDGE SEWING MACHINE OPERATOR documented in this encounter ED Notes Suzanne Riley L.P.N. - 09/20/2015 3:22 PM CST ED Disposition Summary ED Disposition Summary Entered On: 09/20/2015 15:23 PICKED EDGE SEWING MACHINE OPERATOR Performed On: 09/20/2015 15:22 PICKED EDGE SEWING MACHINE OPERATOR by SUZANNE RILEY LPN ED Disposition Summary Printed Discharge Instructions Given to Patient : Yes SUZANNE RILEY LPN - 09/20/2015 15:22 PICKED EDGE SEWING MACHINE OPERATOR Source: [facility] [employer]CHART Document Id: [id number] PICKED EDGE SEWING MACHINE OPERATOR!3 ED EDGE SEWING MACHINE OPERATOR Lelia Garcia R.N. - 09/20/2015 2:21 PM CST ED Triage Assessment Document Has Been Updated ED Triage Assessment Entered On: 09/20/2015 14:22 PICKED EDGE SEWING MACHINE OPERATOR Performed On: 09/20/2015 14:21 PICKED EDGE SEWING MACHINE OPERATOR by LELIA GARCIA RN Reason For Visit (As Of: 09/20/2015 14:22:43 PICKED EDGE SEWING MACHINE OPERATOR) Problems(Active) Cough Bronchospastic (ICD-9-CM :519.11 ) Name of Problem: Cough Bronchospastic ; Onset Date: 04/01/2015 ; Recorder: OFELIA RICARDO RN, THERESA; Confirmation: Confirmed ; Classification: Medical ; Code: 519.11 ; Contributor System: PowerChart ; Last Updated: 04/15/2015 7:28 CDT ; Life Cycle Status: Active ; Responsible Provider: OFELIA RICARDO RN, THERESA; Vocabulary: ICD-9-CM Iron deficiency anemia (SNOMED CT :143185866 ) Name of Problem: Iron deficiency anemia ; Onset Date:06/28/2010 ; Recorder: BRENNA CRAIG DNP, FNP; Confirmation: Confirmed ; Classification: Medical ; Code: 084798981 ; Contributor System: ScoutforceChart ; Last Updated: 02/15/2011 11:49 CDT ; Life Cycle Date: 02/15/2011 ; Life Cycle Status: Active ; Responsible Provider: BRENNA CRAIG DNP, FNP;Vocabulary: SNOMED CT Patellar Tendinitis L (ICD-9-CM :726.64 ) Name of Problem: Patellar Tendinitis L ; Onset Date: 10/21/2014 ; Recorder: ELLIOTT AVALOS MD; Confirmation: Confirmed ; Classification: Medical ; Code: 726.64 ; Contributor System: PowerChart ; Last Updated: 04/01/2015 12:34 CDT ; Life Cycle Date: 10/21/2014 ; Life Cycle Status: Active ; Vocabulary: ICD-9-CM Tinea pedis (ICD-9-CM :110.4 ) Name of Problem: Tinea pedis ; Onset Date: 10/02/2010 ; Recorder: ROWAN GONSALES MD; Confirmation: Confirmed ; Classification: UPDATE NEEDED ; Code: 110.4 ; Contributor System: PowerChart ; Last Updated: 01/20/2011 15:48 CDT ; Life Cycle Date: 11/15/2010 ; Life Cycle Status: Active ; Responsible Provider: ROWAN GONSALES MD; Vocabulary: ICD-9-CM Diagnoses(Active) UC - Cough Date: 09/20/2015 ; Diagnosis Type: Reason For Visit ; Confirmation: Complaint of ; Clinical Dx: UC - Cough ; Classification: Medical ; Clinical Service: Emergency medicine ; Code: PNED ; Probability: 0 ; Diagnosis Code: [id number] Triage Chief Complaint Description : cough, productive, for about 2 weeks. Cough is worse at night. OTC meds not working Information Given By : Patient Accompanied By : Alone Mode of Arrival ED : Private vehicle Track : Medical Languages : Croatian Patient Informed of Triage Location : Urgent Care Treatments Prior to Arrival : Home treatments Are you ? : No Is Patient Female and 13-50 no hysterectomy : Yes Status : Patient denies LELIA GARCIA RN - 09/20/2015 14:21 PICKED EDGE SEWING MACHINE OPERATOR Pain Assessment Pain Symptoms : No LELIA GARCIA RN - 09/20/2015 14:21 PICKED EDGE SEWING MACHINE OPERATOR CHARANJIT DCP GENERIC CODE Tracking Acuity : 4 -Less Urgent Tracking Group : [facility]W ED LELIA GARCIA RN - 09/20/2015 14:21 PICKED EDGE SEWING MACHINE OPERATOR Source: [facility] [employer] Document Id: [id number] PICKED EDGE SEWING MACHINE OPERATOR!19 ED EDGE SEWING MACHINE OPERATOR documented in this encounter Plan of Treatment Not on filedocumented as of this encounter Visit Diagnoses Not on filedocumented in this encounter
--- OUTSIDE RECORDS SUMMARY | 2022-05-19 14:45 | XMS_ITS | Encounter Summary ---
:1990 Author Organization [facility] Address [address] [place] [address] Care Team Providers Name Role Phone Unavailable Primary Care Provider Unavailable Encounter Details Date Type Department Care Team Description 11/18/2014 Hospital Encounter HX [facility] Brenna Craig, GRIS, C.N.P., D. N.P. [address] [place] [address] (Wo rk) Social History Tobacco Use Types Packs/Day Years Used Date Smoking Tobacco: Never Assessed Sex Assigned at Date Recorded Not on file documented as of this encounter Last Filed Vital Signs Vital Sign Reading Time Taken Comments Blood Pressure 131/97 11/18/2014 1:19 PM ADULT PAROLE OFFICER Pulse 105 11/18/2014 1:19 PM ADULT PAROLE OFFICER Temperature - - Respiratory Rate 14 11/18/2014 1:19 PM ADULT PAROLE OFFICER Oxygen Saturation - - Inhaled Oxygen Concentration - - Weight - - Height 166 cm (5' 5.35) 11/18/2014 1:19 PM ADULT PAROLE OFFICER Body Mass Index - - documented in this encounter Progress Notes Brenna Craig, D.N.P., C.N.P. - 11/18/2014 1:11 PM CST [id number] CHIEF COMPLAINT/REASON FOR VISIT Rash. HISTORY OF PRESENT ILLNESS Patient is a 24-year-old female who presents to clinic today with chief complaint of rash that has been present now for maybe the past 4 months' duration. She indicates that she thinks the rash is getting worse. She indicates that her rash had occurred prior to and indicates that she had it a bout 2 months' duration then it resolved after the delivery of her son. She now indicates that it has now occurred again. She indicates that the rash is pruritic. She denies having fevers. Chills, nausea, vomiting, shortness of breath or difficulty breathing. Otherwise indicates she has not applied anything topically or taken anything orally to help with the symptoms of the rash. She is coming in today for ongoing evaluation. PAST MEDICAL/SURGICAL HISTORY Reviewed. Please see chart. FAMILY HISTORY Reviewed. Please see chart. MEDICATIONS Reviewed. Please see chart. ALLERGIES Reviewed. Please see chart. PHYSICAL EXAMINATION GENERAL: Patient is alert, obese, 24-year-old female, otherwise appears to be in no acute distress. HEAD: Normocephalic, atraumatic. SKIN: Gluteal area and perineal area noted to have a follicular rash in which multiple follicular lesions are noted. No pustules or nodules however are noted as they all appear to be erupted. No openings within these follicular lesions are otherwise noted. There are approximately 50 to 75 of them in this vicinity. No maceration or denudement of the skin is noted. IMPRESSION/REPORT/PLAN Folliculitis. PLAN: Discussed overall findings at length with the patient. Given the overall diffuse location bothto the gluteal and perineal area, I did opt to start her on Bactrim DS to take 1 tablet by mouth 2 times a day for the next 10 days' duration which she is not currently . I advised that ifthe symptoms worsen or continue followup would be warranted. Recommended to wash with antimicrobial soap in the shower daily as I also encourage dryness to the area. The patient felt very comfortable with this treatment plan. She is to follow up as needed. Of note, her gonorrhea and chlamydia were also completed today to bring her up-to-date for venereal screening. The patient felt comfortable with this treatment plan. She otherwise denied any further questions or concerns. Patient left clinic in noacute distress. Ready to learn. No apparent learning barriers were identified. Learning preferences include listening. Explained diagnosis and treatment plan. Patient/Child/Caregiver expressed understanding of the content. Evelio Jiang.P./ElkinN.P/radha Electronically Signed By: BRENNA CRAIG DNP, FNP On: 11/18/2014 03:38 PM Source: [facility] Document Id: [id number] T PAROLE OFFICER documented in this encounter Miscellaneous Notes Miscellaneous - Brenna Craig D.N.P., C.N.P. - 11/18/2014 2:20 PM ADULT PAROLE OFFICER Ambulatory Patient Summary [address] [id number] Visit Information Name: ARIS LEOS [facility] Number: [id number] Current Date: 11/18/2014 14:20:13 Physicians Attending Provider: BRENNA CRAIG DNP, FNP Primary Care Provider: OFELIA RICARDO RN, RETAIL STOCKER ARIS LEOS has been given the following list of follow-up instructions, medication list,and patient education materials: Follow-up Instructions Your Medications Here is a list of your medications. It is important to take your medications as directed. Use a pillbox or chart to help remind you to take your medications. Please let your doctor or nurse know if you have problems taking your medications. Medication/Strength How to Take Indications/Special Instructions/Comments/Notes for Patient Medication Changes/Routing sulfamethoxazole-trimethoprim (Bactrim DS 800 mg-160 mg oral tablet) 1 Tablet(s), Oral, two times a day x 10 day(s) New Routed to [facility] [address] [address] Stop Taking the Following Medications: Medication list as of 11-18-14 14:20 Attention: If you have any medications at home that are not on this list, DO NOT take them until youcontact your provider for clarification. Give a copy of your medication list to your primary care provider. Update your medication list any time medications or doses are changed and carry your medication list at all times in case of emergency. Electronically Signed By: BRENNA CRAIG DNP, FNP Signed On:18-NOV-2014 13:58:15 Your Allergies & Intolerances Substance Reaction Symptoms Category Comments No Known Allergies Drug Your Problem List Problem Status Onset Comments Tinea pedis Active 10/02/2010 Iron deficiency anemia Active 06/28/2010 Patellar Tendinitis L Active Your Upcoming Appointments Date Time Location Provider No Appointments found Attention: Contact your local Clinic if further appointment detail needed. Your Goals/Additional instructions: Source: [facility] POWERCHART Document Id: [id number] T PAROLE OFFICER Miscellaneous - Brenna Craig D.Cecil.Jie., C.N.P. - 11/18/2014 2:20 PM ADULT PAROLE OFFICER Ambulatory Discharge Medication List [address] [id number] Visit Information Name: ARIS LEOS [facility] Number: [id number] Visit Date: 11/18/2014 14:20:12 Attending Provider: BRENNA CRAIG DNP, DHIRAJ Primary Care Provider: OFELIA RICARDO RN, RETAIL STOCKER ARIS LEOS has been given the following list of medications: Your Medications It is important to take your medications as directed. Use a pill box or chart to help remind you to take your medications. Please let your doctor or nurse know if you have problems taking your medications. Medication/Strength How to Take Indications/Special Instructions/Comments/Notes for Patient Medication Changes/Routing sulfamethoxazole-trimethoprim (Bactrim DS 800 mg-160 mg oral tablet) 1 Tablet(s), Oral, two times a day x 10 day(s) New Routed to [facility] [address] [address] Stop Taking the Following Medications: Medication list as of 11-18-14 14:20 Attention: If you have any medications at home that are not on this list, DO NOT take them until youcontact your provider for clarification. Give a copy of your medication list to your primary care provider. Update your medication list any time medications or doses are changed and carry your medication list at all times in case of emergency. Electronically Signed By: BRENNA CRAIG DNP, FNP Signed On:18-NOV-2014 13:58:15 Additional Information: Source: [facility] POWERCHART Document Id: [id number] T PAROLE OFFICER Miscellaneous - Rina Caballero L.P.NAnia - 11/18/2014 1:25 PM CST Health Assessment Health Assessment Entered On: 11/18/2014 13:25 ADULT PAROLE OFFICER Performed On: 11/18/2014 13:25 ADULT PAROLE OFFICER by RINA CABALLERO LPN Health Assessment Complete Health Assessment Complete or Modified : Annual Health Assessment Annual Health Assessment Completed : Yes RINA CABALLERO LPN - 11/18/2014 13:25 ADULT PAROLE OFFICER Nutrition Nutrition Risk Factors by History Adult : Unintentional weight loss greater than 10 lbs in last 6 months RINA CABALLERO [facility] - 11/18/2014 13:25 ADULT PAROLE OFFICER Functional Current Daily Living Assistance : None RINA CABALLERO LPN - 11/18/2014 13:25 ADULT PAROLE OFFICER Dependent Habits Tobacco Use/Currently Using : No Tobacco Use/Last 12 months : No Tobacco Use/Advised to Quit : No Exposure to Tobacco Smoke : Care provider denies smoking in home Smoking Status : Never smoker RINA CABALLERO [facility] - 11/18/2014 13:25 ADULT PAROLE OFFICER Tobacco Use Grid Type : Cigarettes Cigarette Use Packs/Day : 0.5 Last Use : 09-20-13 RINA CABALLERO [facility] - 11/18/2014 13:25 ADULT PAROLE OFFICER Caffeine Use Grid Caffeine Use : None Last Use : 09-20-13 RINA CABALLERO [facility] - 11/18/2014 13:25 ADULT PAROLE OFFICER Recreational Drug Use Grid Drug Use : None RINA CABALLERO [facility] - 11/18/2014 13:25 ADULT PAROLE OFFICER Psychosocial Domestic Abuse Concerns : None Sabianist Preference : No qualifying data available. RINA CABALLERO HOME THEATRE TECHNICIAN - 11/18/2014 13:25 ADULT PAROLE OFFICER Advance Directive Advanced Directives : No Advance Directive Additional Information : No RINA CABALLERO LPN - 11/18/2014 13:25 ADULT PAROLE OFFICER Educ Needs Learning Style Preference Adult Grid Patient : None Family : None RINA CABALLERO LPN - 11/18/2014 13:25 ADULT PAROLE OFFICER [facility] POWERCHART Document Id: [id number] ADULT PAROLE OFFICER!36 T PAROLE OFFICER Miscellaneous - Rina Caballero L.P.N. - 11/18/2014 1:25 PM CST Meaningful Use Influenza Exclusion Meaningful Use Influenza Exclusion Entered On: 11/18/2014 13:25 ADULT PAROLE OFFICER Performed On: 11/18/2014 13:25 ADULT PAROLE OFFICER by RINA CABALLERO LPN Influenza Vaccine Exclusion Influenza Vaccine Exclusion : Patient declined RINA CABALLERO LPN - 11/18/2014 13:25 ADULT PAROLE OFFICER Source: [facility] Document Id: [id number] ADULT PAROLE OFFICER!3 T PAROLE OFFICER Miscellaneous - Rina Caballero L.P.N. - 11/18/2014 1:19 PM CST Adult Mine Wirer Intake/History Adult Mine Wirer Intake/History Entered On: 11/18/2014 13:24 ADULT PAROLE OFFICER Performed On: 11/18/2014 13:19 ADULT PAROLE OFFICER by RINA CABALLERO LPN Intake Chief Complaint : check rash in inner thigh Onset of Symptoms : 4months Temperature Core : 37.0 DegC(Converted to: 98.6 DegF) Peripheral Pulse Rate : 105 /min (HI) Respiratory Rate : 14 /min Heart Rhythm : Regular Systolic Blood Pressure : 131 mmHg Diastolic Blood Pressure : 97 mmHg (>HHI) NIBP Mean : 108 mmHg BP Location : Left upper extremity Blood Pressure Cuff Size : Regular Height : 166 cm(Converted to: 5 ft 5 inch(es), 65 inch(es)) RINA CABALLERO LPN - 11/18/2014 13:19 ADULT PAROLE OFFICER General Info Information Given By : Patient Languages : Malawian Is Patient Female and 13-50 no hysterectomy : Yes Status : Patient denies Are you ? : No RINA CABALLERO LPN - 11/18/2014 13:19 ADULT PAROLE OFFICER Subjective Pain Symptoms : No RINA CABALLERO [facility] - 11/18/2014 13:19 ADULT PAROLE OFFICER Dependent Habits Tobacco Use/Currently Using : No Tobacco Use/Last 12 months : No Tobacco Use/Advised to Quit : No Exposure to Tobacco Smoke : Care provider denies smoking in home Smoking Status : Never smoker GEORGIANARINA Mary [facility] - 11/18/2014 13:19 ADULT PAROLE OFFICER Tobacco Use Grid Type : Cigarettes Cigarette Use Packs/Day : 0.5 Last Use : 09-20-13 GEORGIANARINA JANE Mary [facility] - 11/18/2014 13:19 ADULT PAROLE OFFICER Caffeine Use Grid Caffeine Use : None Last Use : 09-20-13 GEORGIANA RINA Mary [facility] - 11/18/2014 13:19 ADULT PAROLE OFFICER Recreational Drug Use Grid Drug Use : None GEORGIANARINA Mary [facility] - 11/18/2014 13:19 ADULT PAROLE OFFICER ID Screen Drug Resistant Organism : No Travel Within Last 21 Days : No GEORGIANARINA Mary [facility] - 11/18/2014 13:19 ADULT PAROLE OFFICER Source: Social MedianCHART Document Id: [id number] ADULT PAROLE OFFICER!43 T PAROLE OFFICER documented in this encounter Plan of Treatment Not on filedocumented as of this encounter Procedures Procedure Name Priority Date/Time Associated Diagnosis Comme nts N GONOR AMP SRC Routine 11/18/2014 2:06 PM Result s for this ADULT PAROLE OFFICER procedure are i n the results section. N GONOR AMP DNA Routine 11/18/2014 2:06 PM Result s for this ADULT PAROLE OFFICER procedure are i n the results section. C TRACH AMP SRC Routine 11/18/2014 2:06 PM Result s for this ADULT PAROLE OFFICER procedure are i n the results section. C TRACH AMP RNA Routine 11/18/2014 2:06 PM Result s for this ADULT PAROLE OFFICER procedure are i n the results section. documented in this encounter Results HX-N gonor Amp DNA (11/18/2014 2:06 PM ADULT PAROLE OFFICER) P athologist Signature HXN gonor Amp Negative POWERCHART DNA-Nettie Specimen (Source) Anatomical Collection Method Collection Time Re ceived Time Location / / Volume Laterality 11/18/2014 2:06 PM ADULT PAROLE OFFICER Narrative POWERCHART - 11/20/2014 6:00 PM ADULT PAROLE OFFICER Test Performed by: [address] [address] Sports Equipment Repairer: Garth Diaz II, M.D., Ph.D. Brenna Craig APRN, C.N.P., D.N.P. LAB HISTORICAL ORDERS Performing Organization Address City/State/ZIP Code Phon e Number POWERCHART HX-N gonor Amp Src (11/18/2014 2:06 PM ADULT PAROLE OFFICER) athologist Signature HXN gonor Amp urine POWERCHART Src-Nettie Specimen (Source) Anatomical Collection Method Collection Time Re ceived Time Location / / Volume Laterality 11/18/2014 2:06 PM ADULT PAROLE OFFICER Brenna Craig APRN, C.N.P., D.N.P. LAB HISTORICAL ORDERS Performing Organization Address City/[facility]/ZIP Code Phon e Number POWERCHART HX-C trach Amp RNA (11/18/2014 2:06 PM ADULT PAROLE OFFICER) [facility] gist Method Time Signature Chlamydia Negative POWERCHART trachomatis amplified RNA Specimen (Source) Anatomical Collection Method Collection Time Re ceived Time Location / / Volume Laterality 11/18/2014 2:06 PM ADULT PAROLE OFFICER Brenna Craig APRN, C.N.P., D.N.P. LAB HISTORICAL ORDERS Performing Organization Address City/[facility]/ZIP Code Phon e Number POWERCHART HX-C trach Amp Src (11/18/2014 2:06 PM ADULT PAROLE OFFICER) athologist Signature HXC trach Amp urine POWERCHART Src-Nettie Specimen (Source) Anatomical Collection Method Collection Time Re ceived Time Location / / Volume Laterality 11/18/2014 2:06 PM ADULT PAROLE OFFICER Brenna Craig APRN, C.N.P., D.N.P. LAB HISTORICAL ORDERS Performing Organization Address City/State/ZIP Code Phon e Number POWERCHART documented in this encounter Visit Diagnoses Not on filedocumented in this encounter
--- OUTSIDE RECORDS SUMMARY | 2022-05-19 14:45 | XMS_ITS | Encounter Summary ---
:1990 Author Organization [facility] Address [address] [place] [address] Care Team Providers Name Role Phone Elsewhere, Pcp Primary Care Provider Unavailable Encounter Details Date Type Department Care Team Description 09/12/2017 Abstract Department of Family Medicine, Provider, Historical [facility], in [place], [place] [address] [address] [facility] [phone] Social History Tobacco Use Types Packs/Day Years Used Date Smoking Tobacco: Never Sex Assigned at Date Recorded Not on file documented as of this encounter Plan of Treatment Not on filedocumented as of this encounter Visit Diagnoses Not on filedocumented in this encounter Care Teams Lawn Care Specialist Relationship Specialty Start Date End Date Elsewhere, Pcp PCP - General Family Medicine 09/05/17 06/26/18 documented as of this encounter
--- OUTSIDE RECORDS SUMMARY | 2022-05-19 14:45 | XMS_ITS | Encounter Summary ---
:1990 Author Organization [facility] Address [address] [place] [address] Care Team Providers Name Role Phone Elsewhere, Pcp Primary Care Provider Unavailable Encounter Details Date Type Department Care Team Description 10/12/2017 Hospital Encounter Department of [facility] in [place], [place] C.N.P., D.N.P. [address] [facility] [address] [place] [address] [phone] Social History Tobacco Use Types Packs/Day Years [...] Procedure Name Priority Date/Time Associated Comments Diagnosis US GALLBLADDER AND RAD - Routine 10/12/2017 9:15 Pain Right Upper R esults for this OR BILIARY DUCTS (most inpatients AM CAKE DECORATOR Quadrant procedu re are in and all the results outpatients) section. documented in this encounter Results US Gallbladder (10/12/2017 9:15 AM CAKE DECORATOR) Anatomical Region Laterality Modality Abdomen N/A Ultrasound Specimen (Source) Anatomical Collection Method Collection Time Re ceived Time Location / / Volume Laterality 10/12/2017 9:25 AM CAKE DECORATOR Impressions 10/12/2017 9:25 AM CAKE DECORATOR IMPRESSION: Normal gallbladder ultrasoun d. Narrative 10/12/2017 9:25 AM CAKE DECORATOR EXAM: US GALLBLADDER COMPARISON: None FINDINGS: Gallbladder: Normal. No gallstones, wall thickening, or pericholecystic fluid. Negative sonographic Marshall sign, per so nographer. Intrahepatic ducts: Not dilated. Common duct: Not dilated. NORMAL caliber abdominal aorta. Procedure Note López Betancourt M.D. - 10/12/2017Formatt ing of this note might be different from the original. EXAM: US GALLBLADDER COMPARISON: None FINDINGS: Gallbladder: Normal. No gallstones, wall thickening, or pericholecystic fluid. Negative sonographic Marshall sign, per so nographer. Intrahepatic ducts: Not dilated. Common duct: Not dilated. NORMAL caliber abdominal aorta. IMPRESSION: Normal gallbladder ultrasoun d. Suzanne Garcia APRN, C.N.P., D.N.P. IMG US PROCEDURES documented in this encounter Visit Diagnoses Diagnosis Pain Right Upper Quadrant documented in this encounter Care Teams Mortgage Broker Relationship Specialty Start Date End Date Elsewhere, Pcp PCP - General Family Medicine 09/05/17 06/26/18 documented as of this encounter
--- OUTSIDE RECORDS SUMMARY | 2022-05-19 14:45 | XMS_ITS | Encounter Summary ---
:1990 Author Organization [facility] Address [address] [place] [address] Care Team Providers Name Role Phone Unavailable Primary Care Provider Unavailable Encounter Details Date Type Department Care Team Description 12/14/2016 Hospital Encounter HX [facility] Sandra Baer APRN, C.N.P., D. N.P. [address] [place] [phone] (Wo rk) Social History Tobacco Use Types Packs/Day Years Used Date Smoking Tobacco: Never Sex Assigned at Date Recorded Not on file documented as of this encounter Last Filed Vital Signs Vital Sign Reading Time Taken Comments Blood Pressure 127/71 12/14/2016 1:14 PM CDT Pulse 126 12/14/2016 1:14 PM CDT Temperature - - Respiratory Rate 16 12/14/2016 1:14 PM CDT Oxygen Saturation - - Inhaled Oxygen Concentration - - Weight - - Height 166 cm (5' 5.35) 12/14/2016 1:14 PM CDT Body Mass Index - - documented in this encounter Progress Notes Suzanne Baer, GRIS, C.N.P., D.N.P. - 12/14/2016 1:38 PM CDT Clinic Full Note CHIEF COMPLAINT/REASON FOR VISIT right upper leg, painful bump, swollen HISTORY OF PRESENT ILLNESS Aris is a pleasant 26-year old female that presents to the clinic today with concerns regarding apainful lump on the posterior/medial aspect of her distal RIGHT thigh, above her knee. She reports that 2 days ago she noticed a puncture site, with a dime sized red lesion on the back of her thigh, over the past 48 hours the rash has gotten bigger, and more painful. She denies any drainage. No itching. She reports trying Boil Ease [id number], without any improvement of symptoms. She is currently 27 weeks . No fever or chills. Of note, patient is tachycardic today - she is in quite a bit of pain. Her baseline HR tends to be slightly elevated. No chest pain, or shortness of breath. No heart palpitations. No light headedness or dizziness. MEDICATIONS No active medications ALLERGIES NKA PAST MEDICAL HISTORY Chronic Cough Bronchospastic Iron deficiency anemia Patellar Tendinitis L Historical No historical problems PROCEDURES/SURGICAL HISTORY Pap smear (2021), None. SOCIAL HISTORY Date Time: 12/14/2016 13:14 Tobacco: Smoking Status: Never smoker Exposure: Care provider denies smoking in home Alcohol: Use: No Results Found Recreational Drugs: Use: None Type: No Results Found FAMILY HISTORY Mother:Positive: Diabetes mellitus Father: Negative: Sister: Negative: Brother: Negative: Brother: Negative: Brother: Negative: SYSTEMS REVIEW As per HPI, otherwise negative. VITAL SIGNS T: 37.1 ??C (Core) HR: 126 RR: 16 BP: 127 / 71 SpO2: 98% HT: 166 cm PHYSICAL EXAMINATION General: No acute distress. Capable of full communication without difficulty. Patient is polite andcooperative. Neck: Supple. Skin: 1mm reddened puncture site surrounded by a 6x8cm well demarcated erythematous rash. No drainage. Warm to touch. Left distal thigh 45cm, RIGHT distal thigh 48cm. CMS intact. Neuro: Alert and oriented x3. CN II-XII grossly intact. Moving all extremities. Psych: Mood and affect appropriate. IMPRESSION/REPORT/PLAN 1. Cellulitis Leg R I suspect that she may have gotten a bug bite that caused cellulitis. Will treat her today with Keflex TID for 7 days. Also advised ice and Tylenol for any discomfort. Lots of fluids and rest. Ordered: cephalexin, 500 mg = 1 cap(s), PO, 3xDay, cellulitis, x 7 day(s), # 21 cap(s), 0 Refill(s), Acute, Pharmacy: [facility] Est Pt Level 3 - 38745 - 15 min 2. Tachycardia NOS Stable. I suspect that her elevated heart rate is due to pain/discomfort. She was instructed to treat her discomfort with ice/Tylenol. Push plenty of fluids. Will continue to monitor closely. Patient was instructed to follow up in primary care if symptoms are worsening or there is no improvement over the next several days. Plan was discussed with patient and is in agreement with plan. All questions were answered. Patientleft in no acute distress. Ready to learn. No apparent learning barriers were identified. Learning preferences include listening. Explained diagnosis and treatment plan. Patient/Child/Caregiver expressed understanding of the content. Electronically Signed By: SUZANNE BAER APRN, C.N.P., JameN.P On: 12/14/2016 01:49 PM [facility] Document Id: [id number] documented in this encounter Miscellaneous Notes Telephone Encounter - Conversion, Historical Provider Ser - 12/14/2016 2:19 PM CDT *Phone Message Document Contains Addenda Addendum by TAVIA SAL LPN on December 14, 2016 14:45:08 CDT pt notified that Rx was sent and to talk to phamacy about drop off for pills. Addendum by SUZANNE BAER APRN, C.NAniaPAnia, D.N.P on December 14, 2016 14:42:25 CDT From: SUZANNE BAER APRN, C.NAniaPAnia, D.N.P To: [facility]; Sent: 12/14/2016 14:42:25 CDT Subject: RE: *Phone Message Keflex suspension was sent to [address] 3x/day for 7 days. Thanks. Addendum by TAVIA SAL LPN on December 14, 2016 14:23:06 CDT From: TAVIA SAL LPN ([facility]) To: SUZANNE BAER APRN, C.N.P., D.N.P; Sent: 12/14/2016 14:23:06 CDT Subject: FW: *Phone Message Addendum by TAVIA SAL LPN on December 14, 2016 14:22:54 CDT please advise on change of medication. From: KENNETH BROWER To: [facility]; Sent: 12/14/2016 14:19:32 CDT Subject: *Phone Message Caller is: ( x) Patient ( ) Mother ( ) Father ( ) Spouse ( ) Daughter ( ) Son ( ) Pharmacy ( ) Other: Physician: Radha Patient MRN #: Reason for Call: Patient was told to call back if unable to swallow medication that was prescribed. She would like another option, also would like to know what to do with the pills she already has (howto dispose of them properly.) Return number: [phone] Message: Advice/Action: Source used: ( ) Verbalizes understanding of instructions ( ) Instructed to call back if symptoms worsen or do not resolve ( ) Refused to see provider ( ) Appointment Scheduled ( ) OK to leave message on voice mail ( ) Patient told to expect return call: ( ) today ( ) tomorrow ( ) next work day ( ) Patient's email ( ) Patient told physician out of office, will call upon return call on ( ) ( ) Patient told physician out of office, routed to other physician ( ) Other ( ) Call back telephone number ( ) Call back cell phone number ( ) Source: [facility] Document Id: [id number] Miscellaneous - Suzanne Baer APRN, C.N.P., D.N.P. - 12/14/2016 1:32 PM CDT Ambulatory Discharge Medication List [address] [id number] Visit Information Name: ARIS LEOS [facility] Number: [id number] Current Date: 12/14/2016 13:32:16 Attending Provider: SUZANNE BAER APRN, C.N.P., D.N.P Primary Care Provider: NICOLE SANTANA MD ARIS LEOS has been given the following list of medications: Your Medications It is important to take your medications as directed. Use a pill box or chart to help remind you to take your medications. Please let your doctor or nurse know if you have problems taking your medications. Medication/Strength How to Take Indications/Special Instructions/Comments/Notes for Patient Medication Changes/Routing cephalexin (Keflex 500 mg oral capsule) 1 cap, Oral, two times a day x 7 day(s) cellulitis New Routed to [address] [place] [address] Stop Taking the Following Medications: Medication list as of 12-14-16 13:32 Attention: If you have any medications at home that are not on this list, DO NOT take them until youcontact your provider for clarification. Give a copy of your medication list to your primary care provider. Update your medication list any time medications or doses are changed and carry your medication list at all times in case of emergency. Electronically Signed By: SUZANNE BAER APRN C.N.PAnia, D.N.P Signed On:14-DEC-2016 13:32:14 Additional Information: Source: [facility] POWERCHART Document Id: [id number] Miscellaneous - Suzanne Baer APRN, C.N.Jie., D.N.P. - 12/14/2016 1:32 PM CDT Ambulatory Patient Summary [address] [place] [id number] Visit Information Name: ARIS LEOS [facility] Number: [id number] Current Date: 12/14/2016 13:32:17 Physicians Attending Provider: SUZANNE BAER APRN, C.Stephanie, Bonnie.N.P Primary Care Provider: NICOLE SANTANA MD ARIS LEOS LELIA has been given the following list of [...] Take Indications/Special Instructions/Comments/Notes for Patient Medication Changes/Routing cephalexin (Keflex 500 mg oral capsule) 1 cap, Oral, two times a day x 7 day(s) cellulitis New Routed to [address] [address] Stop Taking the Following Medications: Medication list as of 12-14-16 13:32 Attention: If you have any medications at home that are not on this list, DO NOT take them until youcontact your provider for clarification. Give a copy of your medication list to your primary care provider. Update your medication list any time medications or doses are changed and carry your medication list at all times in case of emergency. Electronically Signed By: SUZANNE BAER APRN, C.N.Flaquita, D.N.P Signed On:14-DEC-2016 13:32:14 Your Allergies & Intolerances Substance Reaction Symptoms Category Comments No Known Allergies Drug Your Problem List Problem Status Onset Comments Tinea pedis Active 10/02/2010 Iron deficiency anemia Active 06/28/2010 Patellar Tendinitis L Active 10/21/2014 Cough Bronchospastic Active 04/01/2015 Your Upcoming Appointments Date Time Location Provider No Appointments found Attention: Contact your local Clinic if further appointment detail needed. Consider Using Patient Online Services Patient Online [...] if you dont have one. Go to [email or web address] and click on Create Your Account. Then, follow the directions to complete the online form. Youll be asked for your [facility] number which you can find at the top of this document. Your Goals/Additional instructions: Source: [facility] POWERCHART Document Id: [id number] Miscellaneous - Tavia Sal L.P.N. - 12/14/2016 1:14 PM CDT Adult Inspector Balance Bridge Intake/History Adult Inspector Balance Bridge Intake/History Entered On: 12/14/2016 13:18 CDT Performed On: 12/14/2016 13:14 CDT by TAVIA SAL LPN Intake Chief Complaint : right upper leg, painful bump, swollen Onset of Symptoms : noticed monday afternoon- started to hurt. Ambulatory Intake Additional Information : started with a red dot. then kept getting more swollen and tender Temperature Core : 37.1 DegC(Converted to: 98.8 DegF) Peripheral Pulse Rate : 126 /min (HI) Respiratory Rate : 16 /min Systolic Blood Pressure : 127 mmHg Diastolic Blood Pressure : 71 mmHg NIBP Mean : 90 mmHg BP Location : Left upper extremity Blood Pressure Cuff Size : Regular SpO2 : 98 % Height : 166 cm(Converted to: 5 ft 5 inch(es), 65 inch(es)) TAVIA SAL LPN - 12/14/2016 13:14 CDT General Info Languages : Syrian Is Patient Female and 13-50 no hysterectomy : Yes Status : Confirmed positive Are you ? : No TAVIA SAL LPN - 12/14/2016 13:14 CDT Subjective Pain Symptoms : Yes TAVIA SAL LPN - 12/14/2016 13:14 CDT Pain Scale Pain Scale Verbal 0-10 : Open TAVIA SAL LPN - 12/14/2016 13:14 CDT Pain Pain Assessment Grid Pain 1 Location : Upper leg Laterality : Right Intensity : 7 TAVIA SAL LPN - 12/14/2016 13:14 CDT Dependent Habits Exposure to Tobacco Smoke : Care provider denies smoking in home Smoking Status : Never smoker Tobacco 2A : No Tobacco Use/Currently Using : No Tobacco Use/Last 30 Days : No Tobacco Use/Last 12 months : No TAVIA SAL LPN - 12/14/2016 13:14 CDT Caffeine Use Grid Caffeine Use : None Last Use : 09-20-13 TAVIA SAL LPN - 12/14/2016 13:14 CDT Recreational Drug Use Grid Drug Use : None TAVIA SAL LPN - 12/14/2016 13:14 CDT Source: [employer] Document Id: [id number] CDT!44 documented in this encounter Plan of Treatment Not on filedocumented as of this encounter Visit Diagnoses Not on filedocumented in this encounter
--- OUTSIDE RECORDS SUMMARY | 2022-05-19 14:45 | XMS_ITS | Encounter Summary ---
:1990 Author Organization [facility] Address [address] [place] [address] Care Team Providers Name Role Phone Unavailable Primary Care Provider Unavailable Encounter Details Date Type Department Care Team Description 06/03/[address] [facility] Anne-Marie Ricardo APRN, C.N.P., D. N.P. [address] [place] [phone] (Wo rk) Social History Tobacco Use Types Packs/Day Years Used Date Smoking Tobacco: Never Assessed Sex Assigned at Date Recorded Not on file documented as of this encounter Last Filed Vital Signs Vital Sign Reading Time Taken Comments Blood Pressure 111/69 06/03/2015 7:39 AM CDT Pulse 100 06/03/2015 7:39 AM CDT Temperature - - Respiratory Rate 16 06/03/2015 7:39 AM CDT Oxygen Saturation - - Inhaled Oxygen Concentration - - Weight - - Height 166 cm (5' 5.35) 06/03/2015 7:39 AM CDT Body Mass Index - - documented in this encounter Progress Notes Anne-Marie Ricardo APRN, C.N.P. - 06/03/2015 7:36 AM CDT [id number] CHIEF COMPLAINT/REASON FOR VISIT Sore throat. HISTORY OF PRESENT ILLNESS Aris is a 24-year-old female who has been having cold symptoms for the past couple of days, progressively has gotten worse. It started last Monday morning; however, today had a significant sore throat with chills and a productive cough. She has not taken her temperature but feels somewhat feverish. She has a young infant son who has not been ill most recently. Patient is a tobacco user. MEDICATIONS New reconciled medication Pen-VK 500 two times daily for 10 days. ALLERGIES No known drug allergies. SYSTEMS REVIEW As noted above. PHYSICAL EXAMINATION VITAL SIGNS: Her temperature is 36.3, her heart rate is 100. GENERAL: Patient appears nondistressed. She is holding her child. HEENT: Unremarkable. NECK: Supple. THROAT: Erythremic and strep is positive. IMPRESSION/REPORT/PLAN Strep pharyngitis. PLAN: Patient was given instructions, discard her toothbrush, that she is considered contagious for the first 24 hours after being placed on antibiotics and if her son does get ill he will need to havea streptococcus screen noted also. Started her on Pen-VK 500 two times daily for 10 days. Increase fluids and rest. She will report if no improvement or any worsening symptoms. Ready to learn. No apparent learning barriers were identified. Learning preferences include listening. Explained diagnosis and treatment plan. Patient/Child/Caregiver expressed understanding of the content. Elkin GarciaNJason/radha Electronically Signed By: ANNE-MARIE RICARDO RN, CNP On: 06/10/2015 07:48 AM Source: [facility] Document Id: [id number] documented in this encounter Miscellaneous Notes Miscellaneous - Anne-Marie Ricardo APRN, C.N.P. - 06/03/2015 8:23 AM CDT Ambulatory Patient Summary [address] [place] [id number] Visit Information Name: ARIS LEOS [facility] Number: [id number] Current Date: 06/03/2015 08:23:04 Physicians Attending Provider: ANNE-MARIE RICARDO RN, ASSEMBLER UNIT Primary Care Provider: ANNE-MARIE RICARDO RN, ASSEMBLER UNIT ARIS LEOS LELIA has been given the [...] Take Indications/Special Instructions/Comments/Notes for Patient Medication Changes/Routing penicillin V potassium (penicillin V potassium 500 mg oral tablet) 1 Tablet(s), Oral, two times a day x 10 day(s) New Routed to [address] [address] Stop Taking the Following Medications: Medication list as of 06-03-15 08:23 Attention: If you have any medications at home that are not on this list, DO NOT take them until youcontact your provider for clarification. Give a copy of your medication list to your primary care provider. Update your medication list any time medications or doses are changed and carry your medication list at all times in case of emergency. Electronically Signed By: ANNE-MARIE RICARDO RN, ASSEMBLER UNIT Signed On:03-JUN-2015 08:19:31 Your Allergies & Intolerances Substance Reaction Symptoms [...] if you dont have one. Go to [email or web address] and click on Create Your Account. Then, follow the directions to complete the online form. Youll be asked for your [facility] number which you can find at the top of this document. Your Goals/Additional instructions: Source: [facility] POWERCHART Document Id: [id number] Shashank - Anne-Marie Ricardo APRN, Zulema.N.P. - 06/03/2015 8:23 AM CDT Ambulatory Discharge Medication List [address] [id number] Visit Information Name: ARIS LEOS [facility] Number: [id number] Visit Date: 06/03/2015 08:23:03 Attending Provider: ANNE-MARIE RICARDO RN, THERESA Primary Care Provider: ANNE-MARIE RICARDO RN, THERESA ARIS LEOS has been given the following list of medications: Your Medications It is important to take your medications as directed. Use a pill box or chart to help remind you to take your medications. Please let your doctor or nurse know if you have problems taking your medications. Medication/Strength How to Take Indications/Special Instructions/Comments/Notes for Patient Medication Changes/Routing penicillin V potassium (penicillin V potassium 500 mg oral tablet) 1 Tablet(s), Oral, two times a day x 10 day(s) New Routed to [address] [place] [address] Stop Taking the Following Medications: Medication list as of 06-03-15 08:23 Attention: If you have any medications at home that are not on this list, DO NOT take them until youcontact your provider for clarification. Give a copy of your medication list to your primary care provider. Update your medication list any time medications or doses are changed and carry your medication list at all times in case of emergency. Electronically Signed By: ANNE-MARIE RICARDO RN, THERESA Signed On:03-JUN-2015 08:19:31 Additional Information: Source: [facility] Document Id: [id number] Miscellaneous - Dewey Duong L.P.N. - 06/03/2015 7:39 AM CDT Adult Reed Or Wind Instrument Tuner Intake/History Adult Reed Or Wind Instrument Tuner Intake/History Entered On: 06/03/2015 7:43 CDT Performed On: 06/03/2015 7:39 CDT by DEWEY DUONG LPN Intake Chief Complaint : Sore throat started Sat Am, chills, productive cough Temperature Core : 36.3 DegC(Converted to: 97.3 DegF) (LOW) Peripheral Pulse Rate : 100 /min Respiratory Rate : 16 /min Heart Rhythm : Irregular Systolic Blood Pressure : 111 mmHg Diastolic Blood Pressure : 69 mmHg NIBP Mean : 83 mmHg BP Location : Left upper extremity Blood Pressure Cuff Size : Large SpO2 : 96 % Oxygen Therapy : Room air Height : 166 cm(Converted to: 5 ft 5 inch(es), 65 inch(es)) DEWEY DUONG LPN - 06/03/2015 7:39 CDT General Info Languages : Faroese Is Patient Female and 13-50 no hysterectomy : Yes Status : Patient denies Are you ? : No DEWEY DUONG LPN - 06/03/2015 7:39 CDT Subjective Pain Symptoms : Yes DEWEY DUONG LPN 06/03/2015 7:39 CDT Pain Scale Pain Scale Verbal 0-10 : Open DEWEY DUONG LPN - 06/03/2015 7:39 CDT Pain Pain Assessment Grid Pain 1 Location : Throat Laterality : Bilateral Intensity : 5 DEWEY DUONG LPN 06/03/2015 7:39 CDT Dependent Habits Tobacco Use/Currently Using : Yes Tobacco Use/Advised to Quit : Yes Exposure to Tobacco Smoke : Care provider denies smoking in home Smoking Status : Current every day smoker DEWEY DUONG LPN - 06/03/2015 7:39 CDT Tobacco Use Grid Type : Cigarettes Cigarette Use Packs/Day : 0.5 DEWEY DUONG LPN 06/03/2015 7:39 CDT Alcohol Use : No DEWEY DUONG LPN - 06/03/2015 7:39 CDT Caffeine Use Grid Caffeine Use : None Last Use : 09-20-13 DEWEY DUONG LPN 06/03/2015 7:39 CDT Recreational Drug Use Grid Drug Use : None DEWEY DUONG HEEL BRUSHER - 06/03/2015 7:39 CDT Source: [facility] Document Id: [id number]!47 documented in this encounter Plan of Treatment Not on filedocumented as of this encounter Procedures Procedure Name Priority Date/Time Associated Diagnosis Comme nts RAPID STREP A Routine 06/03/2015 7:50 AM Results for this SCREEN CDT procedure are i n the results section. documented in this encounter Results (ABNORMAL) Rapid Strep A Screen (06/03/2015 7:50 AM CDT) [facility] Method Time Signature HXStrep A (POSITIVE) POWERCHART Screen Rapid HXFinal Positive for POWERCHART Group A Strep by rapid screen. Specimen (Source) Anatomical Collection Method Collection Time Re ceived Time Location / / Volume Laterality Throat 06/03/2015 7:50 AM CDT Anne-Marie Ricardo APRN, C.N.P., D.N.P. LAB MICROBIOLOGY - GENERAL ORDERABLES Performing Organization Address City/State/ZIP Code Phon e Number POWERCHART documented in this encounter Visit Diagnoses Not on filedocumented in this encounter
--- OUTSIDE RECORDS SUMMARY | 2022-05-19 14:45 | XMS_ITS | Encounter Summary ---
:1990 Author Organization [facility] Address [address] [place] [address] Care Team Providers Name Role Phone Unavailable Primary Care Provider Unavailable Encounter Details Date Type Department Care Team Description 03/04/2015 Hospital Encounter HX [facility] Ofelia Ricardo APRN, C.N.P., D. N.P. [address] [place] [address] (Wo rk) Social History Tobacco Use Types Packs/Day Years Used Date Smoking Tobacco: Never Assessed Sex Assigned at Date Recorded Not on file documented as of this encounter Last Filed Vital Signs Vital Sign Reading Time Taken Comments Blood Pressure 126/67 03/04/2015 3:21 PM CDT Pulse 96 03/04/2015 3:21 PM CDT Temperature - - Respiratory Rate 16 03/04/2015 3:21 PM CDT Oxygen Saturation - - Inhaled Oxygen Concentration - - Weight 84.9 kg (187 lb 2.7 oz) 03/04/2015 3:21 PM CDT Height 166 cm (5' 5.35) 03/04/2015 3:21 PM CDT Body Mass Index 30.81 03/04/2015 3:21 PM CDT documented in this encounter Progress Notes Ofelia Ricardo APRN, C.N.P. - 03/04/2015 3:14 PM CDT [id number] CHIEF COMPLAINT/REASON FOR VISIT Vaginal symptoms of itching and discharge. HISTORY OF PRESENT ILLNESS Aris is a very pleasant 24-year-old G1, P1 who comes in today with a 2 month history of vaginal discomfort but progressively has gotten worse in the past couple of weeks where she has now had a discharge with an odor. She is on the Depo-Provera shot and has been amenorrheic. However, despite that, has had some brown, lochia type symptoms with discharge. She denies any abdominal cramping. Does note particular itching in the vaginal area. She states she has not had any intercourse for the past two months due to pain. She is in a monogamous relationship, her and her boyfriend. She feels confident that they are monogamous. They do have 1 child together. She did have gonorrhea/chlamydia cultures donein November of 2014 that were negative. MEDICATIONS Flagyl 500 mg by mouth 2 times a day for 7 days. ALLERGIES No known drug allergies. SYSTEMS REVIEW She denies any back or abdominal pain. PAST MEDICAL/SURGICAL HISTORY Please see the EMR. VITAL SIGNS Please see the EMR. PHYSICAL EXAMINATION GENERAL: Patient appears nondistressed. ABDOMEN: Soft, no organomegaly. GENITOURINARY: She has no suprapubic pain. Vaginal area with normal exterior genitalia. She has no rash or abnormalities on her labia majora or minora. Vaginal aldana are normal appearing. Cervix is noted. She did have some significant bloody type discharge within the canal. Also a clear drainage. There is no particular thick discharge noted. No excoriation or other abnormalities identified. DIAGNOSTICS Wet prep positive for clue cells. IMPRESSION/REPORT/PLAN Bacterial vaginosis. PLAN: Treat with Flagyl 500 2 times a day for 7 days. I did talk to her about potential side effectsand to be sure to avoid alcohol with this medication. She states that she agrees and understands. Ready to learn. No apparent learning barriers were identified. Learning preferences include listening. Explained diagnosis and treatment plan. Patient/Child/Caregiver expressed understanding of the content. Ofelia Ricardo, Matti.N.P./radha Electronically Signed By: OFELIA RICARDO RN, WEDDING COORDINATOR On: 03/05/2015 12:46 PM Source: [facility] MHSDOLBEYNONRADSYS Document Id: [id number] documented in this encounter Miscellaneous Notes Miscellaneous - Ofelia Ricardo APRN, C.N.P. - 03/04/2015 4:12 PM CDT Ambulatory Patient Summary [address] [place], [place] [id number] Visit Information Name: ARIS LEOS [facility] Number: [id number] Current Date: 03/04/2015 16:12:12 Physicians Attending Provider: OFELIA RICARDO RN, THERESA Primary Care Provider: OFELIA RICARDO RN, WEDDING COORDINATOR ARIS LEOS has been given the following [...] Take Indications/Special Instructions/Comments/Notes for Patient Medication Changes/Routing metroNIDAZOLE (Flagyl 500 mg oral tablet) 1 Tablet(s), Oral, two times a day x 7 day(s) New Routed to [facility] [address] [address] Stop Taking the Following Medications: Medication list as of 03-04-15 16:12 Attention: If you have any medications at home that are not on this list, DO NOT take them until youcontact your provider for clarification. Give a copy of your medication list to your primary care provider. Update your medication list any time medications or doses are changed and carry your medication list at all times in case of emergency. Electronically Signed By: OFELIA RICARDO RN, THERESA Signed On:04-MAR-2015 16:12:09 Your Allergies & Intolerances Substance Reaction Symptoms Category Comments No Known Allergies Drug Your Problem List Problem Status Onset Comments Tinea pedis Active 10/02/2010 Iron deficiency anemia Active 06/28/2010 Patellar Tendinitis L Active Your Upcoming Appointments Date Time Location Provider No Appointments found Attention: Contact your local Clinic if further appointment detail needed. Your Goals/Additional instructions: Source: [facility] TaquillaCHART Document Id: [id number] Miscellaneous - Ofelia Ricardo APRN, C.N.P. - 03/04/2015 4:12 PM CDT Ambulatory Discharge Medication List [address] [id number] Visit Information Name: ARIS LEOS [facility] Number: [id number] Visit Date: 03/04/2015 16:12:11 Attending Provider: OFELIA RICARDO RN, THERESA Primary Care Provider: OFELIA RICARDO RN, THERESA ARIS LEOS has been given the following list of medications: Your Medications It is important to take your medications as directed. Use a pill box or chart to help remind you to take your medications. Please let your doctor or nurse know if you have problems taking your medications. Medication/Strength How to Take Indications/Special Instructions/Comments/Notes for Patient Medication Changes/Routing metroNIDAZOLE (Flagyl 500 mg oral tablet) 1 Tablet(s), Oral, two times a day x 7 day(s) New Routed to [facility] [address] [address] Stop Taking the Following Medications: Medication list as of 03-04-15 16:12 Attention: If you have any medications at home that are not on this list, DO NOT take them until youcontact your provider for clarification. Give a copy of your medication list to your primary care provider. Update your medication list any time medications or doses are changed and carry your medication list at all times in case of emergency. Electronically Signed By: OFELIA RICARDO RN, THERESA Signed On:04-MAR-2015 16:12:09 Additional Information: Source: [facility] TaquillaCHART Document Id: [id number] Miscellaneous - Darius Sandoval L.P.N. - 03/04/2015 3:21 PM CDT Adult Advisory Intern Intake/History Adult Advisory Intern Intake/History Entered On: 03/04/2015 15:24 CDT Performed On: 03/04/2015 15:21 CDT by DARIUS SANDOVAL TUNGSTEN TENDER Intake Chief Complaint : Vaginal itching. Temperature Core : 37.2 DegC(Converted to: 99.0 DegF) Peripheral Pulse Rate : 96 /min Respiratory Rate : 16 /min Systolic Blood Pressure : 126 mmHg Diastolic Blood Pressure : 67 mmHg NIBP Mean : 87 mmHg BP Location : Left upper extremity Blood Pressure Cuff Size : Large SpO2 : 100 % Oxygen Therapy : Room air Height : 166 cm(Converted to: 5 ft 5 inch(es), 65 inch(es)) Actual Weight : 84.9 kg(Converted to: 187 lb 3 oz) Weight Source : Standing scale Dosing Weight Clinic : 84.9 kg Clinic BSA : 1.98 Body Mass Index : 30.81 kg/m2 DARIUS SANDOVAL LPN - 03/04/2015 15:21 CDT General Info Information Given By : Patient Preferred Communication Mode : Verbal Languages : Portuguese Is Patient Female and 13-50 no hysterectomy : Yes Status : Patient denies Are you ? : No DARIUS SANDOVAL LPN - 03/04/2015 15:21 CDT Subjective Pain Symptoms : No DARIUS SANDOVAL LPN - 03/04/2015 15:21 CDT Dependent Habits Tobacco Use/Currently Using : Yes Exposure to Tobacco Smoke : Care provider denies smoking in home Smoking Status : Current every day smoker DARIUS SANDOVAL LPN - 03/04/2015 15:21 CDT Tobacco Use Grid Type : Cigarettes Cigarette Use Packs/Day : 0.5 DARIUS SANDOVAL LPN - 03/04/2015 15:21 CDT Caffeine Use Grid Caffeine Use : None Last Use : 09-20-13 DARIUS SANDOVAL LPN - 03/04/2015 15:21 CDT Recreational Drug Use Grid Drug Use : None DARIUS SANDOVAL LPN - 03/04/2015 15:21 CDT ID Screen Drug Resistant Organism : No Travel Within Last 21 Days : No Contact with someone with Ebola : No DARIUS SANDOVAL LPN - 03/04/2015 15:21 CDT Source: [facility] POWERCHART Document Id: [id number] CDT!47 documented in this encounter Plan of Treatment Not on filedocumented as of this encounter Procedures Procedure Name Priority Date/Time Associated Comments Diagnosis WET PREP EXAM, Routine 03/04/2015 3:45 PM Results for this UROGENITAL CDT procedure are i n the results section. documented in this encounter Results (ABNORMAL) Wet Prep Exam, Urogenital (03/04/2015 3:45 PM CDT) [facility] Method Time Signature HXWet Prep (POSITIVE) POWERCHART HXFinal Trichomonas: POWERCHART None HXFinal Clue Cells: Few POWERCHART (0-10/hpf) HXFinal Yeast: None POWERCHART HXFinal Sperm: None POWERCHART HXFinal Many epithelial POWERCHART cells (>25/hpf) HXFinal Few WBC's POWERCHART (0-5/hpf) HXFinal bacteria many POWERCHART Specimen (Source) Anatomical Collection Method Collection Time Re ceived Time Location / / Volume Laterality Vagina 03/04/2015 3:45 PM CDT Ofelia Ricardo APRN, C.N.P., D.N.P. LAB MICROBIOLOGY - GENERAL ORDERABLES Performing Organization Address City/State/ZIP Code Phon e Number POWERCHART documented in this encounter Visit Diagnoses Not on filedocumented in this encounter
--- OUTSIDE RECORDS SUMMARY | 2022-05-19 14:45 | XMS_ITS | Encounter Summary ---
:1990 Author Organization [facility] Address [address] [place] [address] Care Team Providers Name Role Phone Unavailable Primary Care Provider Unavailable Encounter Details Date Type Department Care Team Description 12/30/2011 Hospital Encounter HX [facility] Carol Mendes M.D. Social History Tobacco Use Types Packs/Day Years Used Date Smoking Tobacco: Never Assessed Sex Assigned at Date Recorded Not on file documented as of this encounter Plan of Treatment Not on filedocumented as of this encounter Visit Diagnoses Not on filedocumented in this encounter
--- OUTSIDE RECORDS SUMMARY | 2022-05-19 14:45 | XMS_ITS | Encounter Summary ---
:1990 Author Organization [facility] Address [address] [place] [address] Care Team Providers Name Role Phone Elsewhere, Pcp Primary Care Provider Unavailable Encounter Details Date Type Department Care Team Description 09/05/2017 Orders Only Department of Family Medicine, Elsewhere, Pcp [facility], in [address] [phone] Social History Tobacco Use Types Packs/Day Years Used Date Smoking Tobacco: Never Sex Assigned at Date Recorded Not on file documented as of this encounter Plan of Treatment Not on filedocumented as of this encounter Visit Diagnoses Not on filedocumented in this encounter Care Teams Landscape Specialist Relationship Specialty Start Date End Date Elsewhere, Pcp PCP - General Family Medicine 09/05/17 06/26/18 documented as of this encounter
--- OUTSIDE RECORDS SUMMARY | 2022-05-19 14:45 | XMS_ITS | Encounter Summary ---
:1990 Author Organization [facility] Address [address] [place] [address] Care Team Providers Name Role Phone Elsewhere, Pcp Primary Care Provider Unavailable Reason for Visit Reason Comments Other ingrown toenail very painful left big toe Appointment Request (Routine) - Closed Specialty Diagnoses / Procedures Referred By Contact Refer red To Contact Family Medicine Referral ID Status Reason Start Date Expiration Date Visits Requ ested Visits Authorized [id number] Closed 09/12/2017 03/11/2018 1 1 Encounter Details Date Type Department Care Team Description 09/15/2017 Office Visit Department of Family [facility], [facility] (Primary Dx) [facility], [place] [address] [place] [phone] Social History Tobacco Use Types Packs/Day Years Used Date Smoking Tobacco: Never Smokeless Tobacco: Never Sex Assigned at Date Recorded Not on file documented as of this encounter Last Filed Vital Signs Vital Sign Reading Time Taken Comments Blood Pressure 125/82 09/15/2017 11:20 AM ASTROPHYSICS PROFESSOR Pulse 110 09/15/2017 11:20 AM ASTROPHYSICS PROFESSOR Temperature 37 ??C (98.6 ??F) 09/15/2017 11:20 AM ASTROPHYSICS PROFESSOR Respiratory Rate 16 09/15/2017 11:20 AM ASTROPHYSICS PROFESSOR Oxygen Saturation - - Inhaled Oxygen Concentration - - Weight 78.2 kg (172 lb 6.4 oz) 09/15/2017 11:20 AM ASTROPHYSICS PROFESSOR Height 167.6 cm (5' 6) 09/15/2017 11:20 AM ASTROPHYSICS PROFESSOR Body Mass Index 27.83 09/15/2017 11:20 AM ASTROPHYSICS PROFESSOR documented in this encounter H&P Notes Martin Jay M.D. - 09/15/2017 11:30 AM CST SUBJECTIVE CHIEF COMPLAINT / REASON FOR VISIT Aicha Felix is a 26 y.o. female who presents for evaluation of Other (ingrown toenail very painful left big toe). HISTORY OF PRESENT ILLNESS She is ingrown toenail on the left lateral aspect. Is very tender. She can't touch it. It is interfering with her ability to walk. She has no fevers or chills. There is no discharge at the site but there is swelling and redness. She has no other rashes. The following portions of the patient's history were reviewed and updated as appropriate: allergies,current medications, family history, medical history, social history, surgical history and problem list. REVIEW OF SYSTEMS Constitutional: Negative for fatigue. Skin: Positive for skin rash. Neurological: Negative for numbness or shooting pain in hands, arms, legs, or feet. OBJECTIVE PHYSICAL EXAM Constitutional: She appears well-developed and well-nourished. Musculoskeletal: She is tender at the lateral left 1st toenail . Neurological: Normal sensation. Skin: The lateral left 1st toenail is ingrown. It is swollen at the edge with erythema. There is no discharge. Nursing note and vitals reviewed. ASSESSMENT / PLAN #1 Ingrown Toenail After discussion of the options, she opted for a wedge resection. See procedure note. OPHYSICS PROFESSOR documented in this encounter Procedure Notes Martin Jay M.D. - 09/15/2017 11:30 AM CSTAssociated Order(s): NAIL REMOVAL Post-Procedure Diagnose(s): Ingrown Toenail Nail Removal Date/Time: 09/15/2017 12:07 PM Performed by: Martin Jay Authorized by: Martin Jay Pre-procedure details (see MAR for exact dosages): Indication: ingrown nail Location: Toe Toe: Left big toe Site preparation: Alcohol Sedation/Anesthesia (see MAR for exact dosages): Anesthesia method: Digital block Block anesthetic: Lidocaine 1% w/o epi Block location: Proximal left toe bilaterally Block syringe type: Controlled syringe Block needle gauge: 25 G Block technique: Four-sided ring block [place] injection procedure: Anatomic landmarks identified, incremental injection, negative aspirationfor blood, anatomic landmarks palpated and introduced needle Block outcome: Anesthesia achieved Procedure details: Nail plate removed: no Nail bed sutured: no Removed nail replaced and anchored: no Subungual hematoma drained: no Wedge excision of skin: yes Nail matrix removed or ablated: None Post-procedure details: Dressing Applied: no Tetanus status up to date: Up to date Complications: no immediate complications OPHYSICS PROFESSOR documented in this encounter Plan of Treatment Not on filedocumented as of this encounter Procedures Procedure Name Priority Date/Time Associated Diagnosis Comme nts VA EXCISN INGROWN Routine 09/15/2017 11:30 AM Ingrown Toenail Results for this TOENAIL ASTROPHYSICS PROFESSOR procedure are i n the results section. documented in this encounter Results VA EXCISN INGROWN TOENAIL (09/15/2017 11:30 AM ASTROPHYSICS PROFESSOR) Narrative MMODAL - 09/15/2017 11:30 AM ASTROPHYSICS PROFESSOR Martin Jay M.D. ? 09/16/2017 ??9:29 AM Nail Removal Date/Time: 09/15/2017 12:07 PM Performed by: Martin Jay Authorized by: Martin Jay Pre-procedure details (see MAR for exact dosages): ??Indication: ingrown nail ?Location: ??Toe ??Toe: ??Left big toe ??Site preparation: ??Alcohol Sedation/Anesthesia (see MAR for exact d osages): ??Anesthesia method: ??Digital block ??Block anesthetic: ??Lidocaine 1% w/o epi ??Block location: ??Proximal left toe b ilaterally ??Block syringe type: ??Controlled syri nge ??Block needle gauge: ??25 G ??Block technique: ??Four-sided ring bl ock ??[place] injection procedure: ??Anatomic landmarks identified, incremental injection, negative aspiration for blood , anatomic landmarks palpated and introduced needle ??Block outcome: ??Anesthesia achieved Procedure details: ??Nail plate removed: no ?Nail bed sutured: no ?Removed nail replaced and anchored: n o ?Subungual hematoma drained: no ?Wedge excision of skin: yes ?Nail matrix removed or ablated: ??Non e Post-procedure details: ??Dressing Applied: no ?Tetanus status up to date: ??Up to da te ??Complications: no immediate complicat ions ?? Martin Jay M.D. PROCEDURE/MINOR SURGICAL ORD ERABLES Performing Organization Address City/State/ZIP Code Phon e Number MMODAL MMODAL NA documented in this encounter Visit Diagnoses Diagnosis Ingrown Toenail - Primary documented in this encounter Care Teams Cigar Packing Examiner Relationship Specialty Start Date End Date Elsewhere, Pcp PCP - General Family Medicine 09/05/17 06/26/18 documented as of this encounter
--- OUTSIDE RECORDS SUMMARY | 2022-05-19 14:45 | XMS_ITS | Encounter Summary ---
:1990 Author Organization [facility] Address [address] [place] [address] Care Team Providers Name Role Phone Unavailable Primary Care Provider Unavailable Encounter Details Date Type Department Care Team Description 12/30/2011 Hospital Encounter HX [facility] Carol Mendes M.D. Social History Tobacco Use Types Packs/Day Years Used Date Smoking Tobacco: Never Assessed Sex Assigned at Date Recorded Not on file documented as of this encounter Last Filed Vital Signs Vital Sign Reading Time Taken Comments Blood Pressure 110/60 12/30/2011 3:26 PM CDT Pulse 76 12/30/2011 3:26 PM CDT Temperature - - Respiratory Rate - - Oxygen Saturation - - Inhaled Oxygen Concentration - - Weight 77 kg (169 lb 12.1 oz) 12/30/2011 3:26 PM CDT Height - - Body Mass Index - - documented in this encounter Procedure Notes Marva Duarte, L.P.N. - 12/30/2011 3:32 PM CDT Depo-Provera Administration Depo-Provera Administration Entered On: 12/30/2011 15:33 CDT Performed On: 12/30/2011 15:32 CDT by MARVA DUARTE Depo-Provera Administration Annual Exam in the Past 12 Months : Yes Last Depo-Provera Given : 12/30/2011 CDT Return appointment : 03/16/2012 CDT Needs test : No Depo-Provera Administration Comments : depo was given 11 days early. card given to the patient for her next injection date. MARVA DUARTE - 12/30/2011 15:32 CDT Source: [facility] POWERCHART Document Id: [id number] documented in this encounter Nursing Notes Marva Duarte L.P.N. - 12/30/2011 3:26 PM CDT Nurse Only Visit Documentation Nurse Only Visit Documentation Entered On: 12/30/2011 15:27 CDT Performed On: 12/30/2011 15:26 CDT by MARVA DUARTE Nurse Only Visit Documentation Nurse Only Visit Documentation : patient is here for her depo she is 11days early per dr. mendes ok to give. MARVA DUARTE - 12/30/2011 15:26 CDT Vitals/Ht/Wt Temperature Core : 36.9C(Converted to: 98.4DegF) Peripheral Pulse Rate : 76/min Heart Rhythm : Regular Systolic Blood Pressure : 110mmHg Diastolic Blood Pressure : 60mmHg NIBP Mean : 77mmHg BP Location : Left upper extremity Blood Pressure Cuff Size : Regular Actual Weight : 77kg(Converted to: 169lb 12oz) Dosing Weight Clinic : 77.00kg MARVA DUARTE - 12/30/2011 15:26 CDT Source: [employer] POWERCHART Document Id: [id number] [id number]!14 documented in this encounter Plan of Treatment Not on filedocumented as of this encounter Visit Diagnoses Not on filedocumented in this encounter
--- OUTSIDE RECORDS SUMMARY | 2022-05-19 14:45 | XMS_ITS | Encounter Summary ---
:1990 Author Organization [facility] Address [address] [place] [address] Care Team Providers Name Role Phone Elsewhere, Pcp Primary Care Provider Unavailable Reason for Visit Reason Comments Abdominal Pain Started this AM upper abdome n contracts shooting pain. Appointment Request (Routine) - Closed Specialty Diagnoses / Procedures Referred By Contact Refer red To Contact Family Medicine Referral ID Status Reason Start Date Expiration Date Visits Requ ested Visits Authorized [id number] Closed 10/11/2017 04/09/2018 1 1 Encounter Details Date Type Department Care Team Description 10/11/2017 Office Visit Department of Family Suzanne Garcia Pa in Right Upper Medicine, [place] GRIS, C.N.PAnia, Linn enriquezt (Primary Dx) Clinic, in [place] [address] [place] [phone] Social History Tobacco Use Types Packs/Day Years Used Date Smoking Tobacco: Never Smokeless Tobacco: Never Sex Assigned at Date Recorded Not on file documented as of this encounter Last Filed Vital Signs Vital Sign Reading Time Taken Comments Blood Pressure 123/75 10/11/2017 4:29 PM [facility] Pulse 100 10/11/2017 4:29 PM [facility] Temperature 37.1 ??C (98.8 ??F) 10/11/2017 4:29 PM [facility] Respiratory Rate 16 10/11/2017 4:29 PM [facility] Oxygen Saturation 100% 10/11/2017 4:29 PM [facility] Inhaled Oxygen Concentration - - Weight 78.7 kg (173 lb 8 oz) 10/11/2017 4:29 PM [facility] Height - - Body Mass Index 28 09/15/2017 11:20 AM [facility] documented in this encounter Patient Instructions Patient InstructionsSuzanne Garcia APRN, D.N.P., C.N.P. - 10/11/2017 4:45 PM CST Please schedule abdominal U/S in [place] at 9am in their urgent spot ID [facility] documented in this encounter Progress Notes Suzanne Garcia APRN, D.N.P., C.N.P. - 10/11/2017 4:45 PM CST CHIEF COMPLAINT / REASON FOR VISIT Aicha Felix is a 26 y.o. female who presents for evaluation of Abdominal Pain (Started thisAM upper abdomen contracts shooting pain.). HISTORY OF PRESENT ILLNESS Aicha is a pleasant 26-year-old female, no chronic medical problems, that presents to the clinic today for evaluation of epigastric/right upper quadrant abdominal pain that started this morning. She reports sharp shooting pain that is self-limited lasting only seconds. She reports that her pain will come and go several times throughout the day. She has tried Gas-X and Pepto-Bismol without improvement in symptoms. She does report some intermittent nausea, but no vomiting or diarrhea. She denies any aggravating triggers related to food or drink. She reports normal, regular bowel movements with no noticeable blood. She denies any fevers or chills. She is currently taking in oral control as contraception and has had no problems related to the medication. She reports her last menstrual period was 09/29/2017 lasting 4-6 days. She denies any urinary symptoms. She does still have her gallbladder.She does have a son that is 6-month-old. Brief Review of Systems: A brief review of systems was negative except for that mentioned in the history of present of illness. Current Outpatient Medications Medication Sig ??? MARLISSA 0.15-0.03 mg per tablet No Known Allergies PHYSICAL EXAM BP 123/75 (BP Location: Left arm, Patient Position: Sitting, Cuff Size: Large) Pulse 100 Temp 37.1 ??C (Temporal) Resp 16 Wt 78.7 kg LMP 10/04/2017 SpO2 100% ? No BMI 28.00kg/m?? Body mass index is 28 kg/m??. GENERAL: Patient is in no distress. Capable of full communication without difficulty. Patient is polite and cooperative. HEART: Regular rate and rhythm. No murmurs, gallops or rubs noted. LUNGS: Clear to auscultation bilaterally. No expiratory wheeze. No accessory muscles of respiration noted. ABDOMEN: Significantly tender in the epigastric/RUQ region. Guarding present. Marshall's sign was not tested due to discomfort. No hepato-splenomegaly. No mass. Normal bowel sounds in all 4 quadrants. EXTREMITIES: No neurovascular compromise. No cyanosis, clubbing or edema. NEURO: Alert and oriented x3, nonfocal, moving all 4 extremities. CN II-XII grossly intact. PSYCH: Affect is appropriate DIAGNOSTICS: Results for orders placed or performed in visit on 10/11/17 CMP (Comprehensive Metabolic Panel) Result Value Ref Range Potassium, S 4.3 3.6 - 5.2 mmol/L Sodium, S 140 135 - 145 mmol/L Chloride, S 102 98 - 107 mmol/L Bicarbonate, S 25 22 - 29 mmol/L Anion Gap 13 7 - 15 Bld Urea Nitrog(BUN), S 13 6 - 21 mg/dL Creatinine, S 0.94 0.59 - 1.04 mg/dL eGFR Non- 85 >=60 mL/min/BSA eGFR- >90 >=60 mL/min/BSA Calcium, Total, S 9.6 8.9 - 10.1 mg/dL Glucose, Random, S 93 70 - 140 mg/dL Protein, Total, S 7.2 6.3 - 7.9 g/dL Albumin, S 4.5 3.5 - 5.0 g/dL Aspartate Aminotransferase (AST), S 22 8 - 43 U/L Alkaline Phosphatase, S 61 37 - 98 U/L Alanine Aminotransferase (ALT), S 25 7 - 45 U/L Bilirubin Total, S 0.5 <=1.2 mg/dL CBC with Differential Result Value Ref Range Hemoglobin, B 11.2 (L) 11.6 - 15.0 g/dL Hematocrit 34.4 (L) 35.5 - 44.9 % Erythrocytes 5.63 (H) 3.92 - 5.13 x10(12)/L MCV 61.1 (L) 78.2 - 97.9 fL RBC Distrib Width 14.7 12.2 - 16.1 % Platelet Count 292 157 - 371 x10(9)/L Leukocytes 11.3 (H) 3.4 - 9.6 x10(9)/L Neutrophils 7.70 (H) 1.56 - 6.45 x10(9)/L Lymphocytes 2.95 0.95 - 3.07 x10(9)/L Monocytes 0.52 0.26 - 0.81 x10(9)/L Eosinophils 0.13 0.03 - 0.48 x10(9)/L Basophils 0.02 0.01 - 0.08 x10(9)/L Amylase, Total Result Value Ref Range Amylase, Total, S 44 26 - 102 U/L Lipase Result Value Ref Range Lipase, S 34 13 - 60 U/L Morphology Evaluation Result Value Ref Range RBC Morphology Normal PLT Morphology Normal PLT Estimate Adequate Adequate FINDINGS: Gallbladder: Normal. No gallstones, wall thickening, or pericholecystic fluid. Negative sonographic Marshall sign, per digital composer. Intrahepatic ducts: Not dilated. Common duct: Not dilated. NORMAL caliber abdominal aorta. ?? IMPRESSION: Normal gallbladder ultrasound. ASSESSMENT/PLAN: #1 Pain Right Upper Quadrant Given patient's symptoms and clinical exam, I am suspicious for cholelithiasis versus cholecystitis.Blood work done today and equivocal - arranged for a semi- urgent abdominal ultrasound which will be for performed in [place] tomorrow morning (10/12/17). Abdominal U/S is negative for concerns. Suspect possible muscular strain. Recommended conservative management - [id number] analgesics, ice/heat, rest. Patient is asymptomatic otherwise - will trial a PPI for a couple weeks, and have her follow up if symptoms worsen or fail to improve over the next several days/couple weeks. Plan was discussed with patient and is in agreement with plan. All questions were answered, side effects of any/all new medications were discussed. Patient left in no acute distress. Ready to learn. No apparent learning barriers were identified. Learning preferences include listening. Explained diagnosis and treatment plan. Patient/Child/Caregiver expressed understanding of the content. Suzanne Garcia APRN, D.N.P., C.N.P. ID [facility] documented in this encounter Plan of Treatment Not on filedocumented as of this encounter Procedures Procedure Name Priority Date/Time Associated Comments Diagnosis MORPHOLOGY EVALUATION Routine 10/11/2017 5:03 PM Results for this [facility] procedure are i n the results section. CBC WITH DIFFERENTIAL, Routine 10/11/2017 5:03 PM Pain Right U pper Results for this B [facility] Quadrant procedure are i n the results section. LIPASE, S/P Routine 10/11/2017 5:03 PM Pain Right Upper Resul ts for this [facility] Quadrant procedure are i n the results section. AMYLASE, TOT, S Routine 10/11/2017 5:03 PM Pain Right Upper Re sults for this [facility] Quadrant procedure are i n the results section. COMPREHENSIVE Routine 10/11/2017 5:03 PM Pain Right Upper Resu lts for this METABOLIC PANEL, S/P [facility] Quadrant procedu re are in the results section. documented in this encounter Results Morphology Evaluation (10/11/2017 5:03 PM [facility]) Analysis Performed At Patho logist Time Signature RBC Morphology Normal 10/11/2017 [facility] 7:27 PM [facility] PLT Morphology Normal 10/11/2017 [facility] 7:27 PM [facility] PLT Estimate Adequate Adequate 10/11/2017 [facility] 7:27 PM [facility] Specimen Anatomical Collection Method Collection Time Receive d Time (Source) Location / / Volume Laterality Blood 10/11/2017 5:03 PM 8 5:53 [facility] PM [facility] Suzanne Garcia APRN, Zulema.N.P., D.N.P. LAB BLOOD ADD-ON Performing Organization Address City/State/ZIP Code Phon e Number [facility]- [id number] [place] [phone] [facility] Lipase (10/11/2017 5:03 PM [facility]) P athologist Signature Lipase, S 34 13 - 60 U/L 10/11/2017 [facility] 5:53 PM [facility] Specimen Anatomical Collection Method Collection Time Receive d Time (Source) Location / / Volume Laterality Blood (Blood, 10/11/2017 5:03 PM 10/11/19 18 5:30 Venous) [facility] PM [facility] Oswald Campos APRNN.Jie., D.N.P. LAB BLOOD ADD-ON Performing Organization Address [facility] Phon e Number [address] [phone] [facility] Amylase, Total (10/11/2017 5:03 PM [facility]) P athologist Signature Amylase, Total, 44 26 - 102 10/11/2017 [facility] S U/L 5:53 PM [facility] Specimen Anatomical Collection Method Collection Time Receive d Time (Source) Location / / Volume Laterality Blood (Blood, 10/11/2017 5:03 PM 10/11/19 18 5:30 Venous) [facility] PM [facility] Oswald Campos APRNN.P., D.N.P. LAB BLOOD ADD-ON Performing Organization Address [facility] Phon e Number [address] [phone] [facility] (ABNORMAL) CBC with Differential (10/11/2017 5:03 PM [facility]) [facility] Method Time Signature Hemoglobin 11.2 (L) 11.6 - 10/11/2017 [facility] 15.0 g/dL 7:02 PM [facility] Hematocrit 34.4 (L) 35.5 - 10/11/2017 [facility] 44.9 % 7:02 PM [facility] Erythrocytes 5.63 (H) 3.92 - 10/11/2017 [facility] 5.13 7:02 PM [facility] x10(12)/L [facility] MCV 61.1 (L) 78.2 - 10/11/2017 [facility] 97.9 fL 7:02 PM [facility] RBC Distrib Width 14.7 12.2 - 10/11/2017 [facility] 16.1 % 7:02 PM [facility] Platelet Count 292 157 - 371 10/11/2017 [facility] x10(9)/L 7:02 PM [facility] Leukocytes 11.3 (H) 3.4 - 9.6 10/11/2017 [facility] x10(9)/L 7:02 PM [facility] Neutrophils 7.70 (H) 1.56 - 10/11/2017 [facility] 6.45 7:02 PM [facility] x10(9)/L [facility] Lymphocytes 2.95 0.95 - 10/11/2017 [facility] 3.07 7:02 PM [facility] x10(9)/L [facility] Monocytes 0.52 0.26 - 10/11/2017 [facility] 0.81 7:02 PM [facility] x10(9)/L [facility] Eosinophils 0.13 0.03 - 10/11/2017 [facility] 0.48 7:02 PM [facility] x10(9)/L [facility] Basophils 0.02 0.01 - 10/11/2017 [facility] 0.08 7:02 PM [facility] x10(9)/L [facility] Specimen Anatomical Collection Method Collection Time Receive d Time (Source) Location / / Volume Laterality Blood 10/11/2017 5:03 PM 8 7:02 [facility] PM [facility] Suzanne Garcia APRN C.N.P., D.N.P. LAB BLOOD ADD-ON Performing Organization Address City/State/ZIP Code Phon e Number [facility]- [address] [place] [phone] [place] [address] LAB CMP (Comprehensive Metabolic Panel) (10/11/2017 5:03 PM [facility]) P athologist Signature Potassium, S 4.3 3.6 - 5.2 10/11/2017 [facility] mmol/L 5:53 PM [facility] Sodium, S 140 135 - 145 10/11/2017 [facility] mmol/L 5:53 PM [facility] Chloride, S 102 98 - 107 10/11/2017 [facility] mmol/L 5:53 PM [facility] Bicarbonate, S 25 22 - 29 10/11/2017 [facility] mmol/L 5:53 PM [facility] Anion Gap 13 7 - 15 10/11/2017 [facility] 5:53 PM [facility] BUN (Blood Urea 13 6 - 21 10/11/2017 [facility] Nitrogen), S mg/dL 5:53 PM [facility] Creatinine, S 0.94 0.59 - 10/11/2017 [facility] 1.04 mg/dL 5:53 PM [facility] eGFR 85 >=60 10/11/2017 [facility] Non-Black/Afric mL/min/BSA 5:53 PM [facility] Comment: ----ADDITIONAL INFORMATION---- Estimated GFR calculated using the 2009 CKD_EPI creatinine equation. eGFR Black/ >90 >=60 mL/min/BSA 10/11/2017 5:53 PM [facility] Comment: ----ADDITIONAL INFORMATION---- Estimated GFR calculated using the 2009 CKD_EPI creatinine equation. Calcium, Total, S 9.6 8.9 - 10.1 10/11/2017 5:53 PM [facility] mg/dL [facility] Glucose, S 93 70 - 140 mg/dL 10/11/2017 5:53 PM [facility] Protein, Total, S 7.2 6.3 - 7.9 g/dL 10/11/2017 5:53 P M [facility] Albumin, S 4.5 3.5 - 5.0 g/dL 10/11/2017 5:53 PM [facility] Aspartate Aminotransferase 22 8 - 43 U/L 10/11/2017 5 :53 PM [facility] (AST), S [facility] Alkaline Phosphatase, S 61 37 - 98 U/L 10/11/2017 5:5 3 PM [facility] Alanine Aminotransferase 25 7 - 45 U/L 10/11/2017 5:5 3 PM [facility] (ALT), S [facility] Bilirubin, Total, S 0.5 <=1.2 mg/dL 10/11/2017 5:53 PM [facility] Specimen Anatomical Collection Method Collection Time Receive d Time (Source) Location / / Volume Laterality Blood 10/11/2017 5:03 PM 8 5:31 [facility] PM [facility] Oswald Campos APRNNAniaP., D.N.P. LAB BLOOD ADD-ON Performing Organization Address City/State/[facility] Code Phon e Number [facility]- [address] [place] [phone] [facility] documented in this encounter Visit Diagnoses Diagnosis Pain Right Upper Quadrant - Primary documented in this encounter Care Teams Long Winder Tender Relationship Specialty Start Date End Date Elsewhere, Pcp PCP - General Family Medicine 09/05/17 06/26/18 documented as of this encounter
--- OUTSIDE RECORDS SUMMARY | 2022-05-19 14:45 | XMS_ITS | Encounter Summary ---
:1990 Author Organization [facility] Address [address] [place] [address] Care Team Providers Name Role Phone Unavailable Primary Care Provider Unavailable Encounter Details Date Type Department Care Team Description 10/21/2014 Hospital Encounter HX [facility] ME Dany Avalos M.D. 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 - 10/21/2014 12:35 PM CST [id number] CHIEF COMPLAINT/REASON FOR VISIT Left knee pain. HISTORY OF PRESENT ILLNESS Aicha is a pleasant 24-year-old female who comes to clinic today with acute onset of left knee pain. She says she awoke Monday morning with a feeling of tenderness and pressure in her left knee. She isolates the pain to her kneecap and just superior to her kneecap. It is painful with movement, better with rest. She tried Tylenol which did not help. She is able to ambulate and rates her pain at worst a 4. She is not an active gal. She does not exercise. She has no other complaints at this time but would like evaluation of her pain. She describes the pain as intermittent and a significant achy pain. No trauma noted. PAST MEDICAL/SURGICAL HISTORY Iron deficiency. SOCIAL HISTORY Former smoker, quit September of 2013. Denies caffeine, alcohol, illicit drug use. MEDICATIONS None. ALLERGIES None. SYSTEMS REVIEW As per HPI, otherwise negative. PHYSICAL EXAMINATION VITAL SIGNS: Heart rate 72, respiratory rate 16, blood pressure 118/72. GENERAL: She is alert, pleasant, interactive female in no acute distress. HEAD: Atraumatic, normocephalic. EXTREMITIES: Left knee, no visualized erythema, edema or asymmetry. Tenderness to palpation with grind test of the patella as well as with palpation of the femoropatellar tendon and distally of the patellar tendon. Range of motion full and intact. No varus or valgus pain. No laxity. Negative Da's. Distal strength 5 out of 5. Sensation intact distally. Capillary refill brisk. IMPRESSION/REPORT/PLAN Patellar tendinitis. Patient's presentation is consistent with a patellar tendinitis and potential for patellofemoral syndrome. Discussed conservative managed at this time to include rest, ice, anti-inflammatory medications, and we will provide patient with exercises as gathered by Physical Therapy whose input I greatly ap preciated. Did recommend formal physical therapy if symptoms do not improve. Recommend followup in 2week's time if symptoms do not improve. Would recommend physical therapy and x-rays at that time forongoing evaluation. Patient is in agreement and understanding of the plan. All questions were answered. Elliott Avalos M.D./radha Electronically Signed By: ELLIOTT AVALOS MD On: 10/21/2014 05:03 PM Source: [facility] MHSDOLBEYNONRADSYS Document Id: [id number] ST[employer] PROFESSOR [employer] ECONOMICS documented in this encounter Miscellaneous Notes Miscellaneous - Marva Duarte L.P.N. - 10/21/2014 12:58 PM CST Adult Eyeglass Lens Cutter Intake/History Adult Eyeglass Lens Cutter Intake/History Entered On: 10/21/2014 13:01 ASSISTANT PROFESSOR [employer] ECONOM[employer] Performed On: 10/21/2014 12:58 ASSISTANT PROFESSOR [employer] ECONOMICS by MARVA DUARTE Intake Chief Complaint : left knee pain started 10/19/13 when she woke up denies injury Peripheral Pulse Rate : 72 /min Respiratory Rate : 16 /min Heart Rhythm : Regular Systolic Blood Pressure : 118 mmHg Diastolic Blood Pressure : 72 mmHg NIBP Mean : 87 mmHg BP Location : Left upper extremity Blood Pressure Cuff Size : Regular Height : 166 cm(Converted to: 5 ft 5 inch(es), 65 inch(es)) MARVA DUARTE 10/21/2014 12:58 ASSISTANT PROFESSOR OF ECONOMICS General Info Information Given By : Patient Languages : Divehi Is Patient Female and 13-50 no hysterectomy : Yes Status : Patient denies Are you ? : No MARVA DUARTE 10/21/2014 12:58 ASSISTANT PROFESSOR [employer] ECONOMICS Subjective Pain Symptoms : Yes MARVA DUARTE 10/21/2014 12:58 ASSISTANT PROF[employer]OR [employer]CONOM[employer] Pain Scale Pain Scale Verbal 0-10 : Open MARVA DUARTE 10/21/2014 12:58 ASSISTANT PROF[employer]OR [employer]CONOM[employer] Pain Pain Assessment Grid Pain 1 Location : Knee Intensity : 4 MARVA DUARTE 10/21/2014 12:58 ASSISTANT PROF[employer]OR [employer]CONOM[employer] Dependent Habits Tobacco Use/Currently Using : No Exposure to Tobacco Smoke : Care provider denies smoking in home Smoking Status : Former smoker MARVA DUARTE 10/21/2014 12:58 ASSISTANT PROF[employer]OR [employer]CONOM[employer] Tobacco Use Grid Type : Cigarettes Cigarette Use Packs/Day : 0.5 Last Use : 09-20-13 MARVA DUARTE 10/21/2014 12:58 ASSISTANT PROFESSOR [employer] ECONOM[employer] Caffeine Use Grid Caffeine Use : None Last Use : 09-20-13 MARVA DUARTE 10/21/2014 12:58 ASSISTANT PROFESSOR [employer] ECONOMICS Recreational Drug Use Grid Drug Use : None MARVA DUARTE 10/21/2014 12:58 ASSISTANT PROFESSOR OF ECONOMICS ID Screen Travel Within Last 21 Days : No MARVA DUARTE 10/21/2014 12:58 ASSISTANT PROFESSOR OF ECONOMICS Source: [facility] POWERCHART Document Id: [id number] ASSISTANT PROFESSOR OF ECONOMICS!45 STANT PROFESSOR [employer] ECONOMICS documented in this encounter Plan of Treatment Not on filedocumented as of this encounter Visit Diagnoses Not on filedocumented in this encounter
--- OUTSIDE RECORDS SUMMARY | 2022-05-19 14:45 | XMS_ITS | Encounter Summary ---
:1990 Author Organization [facility] Address [address] [place] [address] Care Team Providers Name Role Phone Elsewhere, Pcp Primary Care Provider Unavailable Reason for Visit Appointment Request (Routine) - Closed Specialty Diagnoses / Procedures Referred By Contact Refer red To Contact Family Medicine Referral ID Status Reason Start Date Expiration Date Visits Requ ested Visits Authorized [id number] Closed 05/31/2018 05/31/2019 1 Encounter Details Date Type Department Care Team Description 05/31/2018 Office Visit Department of Family José Scott, In grown Toenail MedicineTosha M.D. (Primary Dx) Clinic, in [address] [place] [phone] Social History Tobacco Use Types Packs/Day Years Used Date Smoking Tobacco: Never Smokeless Tobacco: Never Sex Assigned at Date Recorded Not on file documented as of this encounter Progress Notes José Scott M.D. - 05/31/2018 2:45 PM CDT Patient left prior to being seen. documented in this encounter Plan of Treatment Not on filedocumented as of this encounter Visit Diagnoses Diagnosis Ingrown Toenail - Primary documented in this encounter Care Teams Gear Machinist Relationship Specialty Start Date End Date Elsewhere, Pcp PCP - General Family Medicine 09/05/17 06/26/18 documented as of this encounter
--- OUTSIDE RECORDS SUMMARY | 2022-05-19 14:45 | XMS_ITS | Encounter Summary ---
:[address] [facility] Address [address] [place] [address] Care Team Providers Name Role Phone Unavailable Primary Care Provider Unavailable Encounter Details Date Type Department Care Team Description 06/24/2016 Hospital Encounter HX [facility] [place] Isabela Solis, P.A.-C. [address] [place], [place] [phone] (Wo rk) Social History Tobacco Use Types Packs/Day Years Used Date Smoking Tobacco: Never Assessed Sex Assigned at Date Recorded Not on file documented as of this encounter Last Filed Vital Signs Vital Sign Reading Time Taken Comments Blood Pressure 116/71 06/24/2016 4:04 PM CDT Pulse 100 06/24/2016 4:04 PM CDT Temperature - - Respiratory Rate 16 06/24/2016 4:04 PM CDT Oxygen Saturation - - Inhaled Oxygen Concentration - - Weight - - Height 166 cm (5' 5.35) 06/24/2016 4:04 PM CDT Body Mass Index - - documented in this encounter Progress Notes Cristian Gustafson, P.A.-C. - 06/24/2016 4:44 PM CDT Clinic Full Note CHIEF COMPLAINT/REASON FOR VISIT Cold symptoms,congestions, body aches post nasal drip causing a sore throat HISTORY OF PRESENT ILLNESS Patient is a 25 year old female who presents today for evaluation of cold symptoms. The patient states she has had symptoms for about 2-3 days. Her son had croup last week and now she is getting symptoms. The patient's symptoms include sore throat, rhinorrhea, congestion, body aches and a slight cough. She has used Allison seltzer for symptoms with come improvement. She denies any fevers or chills. MEDICATIONS No active medications ALLERGIES NKA PAST MEDICAL HISTORY Chronic Cough Bronchospastic Iron deficiency anemia Patellar Tendinitis L Historical No historical problems PROCEDURES/SURGICAL HISTORY Pap smear (2021), None. SOCIAL HISTORY Date Time: 06/24/2016 16:04 Tobacco: Smoking Status: Former smoker Exposure: Care provider denies smoking in home Alcohol: Use: No Recreational Drugs: Use: None Type: No Results Found FAMILY HISTORY Mother:Positive: Diabetes mellitus Father: Negative: Sister: Negative: Brother: Negative: Brother: Negative: Brother: Negative: SYSTEMS REVIEW GENERAL: No fevers, no chills CARDIAC: No chest pain PULMONARY: No shortness of breath GI: No nausea, no vomiting VITAL SIGNS T: 37 ??C (Core) HR: 100 RR: 16 BP: 116 / 71 SpO2: 97% HT: 166 cm PHYSICAL EXAMINATION GENERAL: Patient is in no distress. HEENT: Normocephalic. PERRL, Canals patent, bilateral TMs are nonerythematous and non-bulging, somefluid behind both TMs. Nasal mucosa is erythematous boggy, turbinates bilaterally are enlarged in appearance, Oropharynx without lesion of mucosa. Pharyngeal rises symmetrically without exudate or erythema. NECK: No cervical or supraclavicular lymphadenopathy HEART: Regular rate and rhythm. No murmurs, gallops or rubs noted. LUNGS: Clear to auscultation bilaterally. No expiratory wheeze. No accessory muscles of respirationnoted. NEURO: Alert and nonfocal, moving all 4 extremities PSYCH: Appropriate affect IMPRESSION/REPORT/PLAN Infection Upper Respiratory (URI) Patient's exam is normal. She likely had a viral illness. It is possible it is the croup the patient's son had however the same virus will not cause croup in the patient. I explained the pathophysiology to the patient. Mucinex for congestion. Cepacol lozenges (numbing) to help with sore throat Hydration and rest are very important Follow up in 1-2 weeks if not improving Electronically Signed By: CRISTIAN GUSTAFSON P.A.-C. On: 06/27/2016 01:37 PM Source: [employer] Document Id: [id number] documented in this encounter Miscellaneous Notes Miscellaneous - Dewey Duong L.P.N. - 06/24/2016 4:04 PM CDT Adult Data Officer Intake/History Adult Data Officer Intake/History Entered On: 06/24/2016 16:08 CDT Performed On: 06/24/2016 16:04 CDT by DEWEY DUONG LPN Intake Chief Complaint : Cold symptoms,congestions, body aches post nasal drip causing a sore throat Temperature Core : 37 DegC(Converted to: 98.6 DegF) Peripheral Pulse Rate : 100 /min Respiratory Rate : 16 /min Heart Rhythm : Regular Systolic Blood Pressure : 116 mmHg Diastolic Blood Pressure : 71 mmHg NIBP Mean : 86 mmHg BP Location : Left upper extremity Blood Pressure Cuff Size : Large SpO2 : 97 % Oxygen Therapy : Room air Height : 166 cm(Converted to: 5 ft 5 inch(es), 65 inch(es)) DEWEY DUONG LPN - 06/24/2016 16:04 CDT General Info Languages : Beninese Is Patient Female and 13-50 no hysterectomy : Yes Status : Patient denies Are you ? : No DEWEY DUONG LPN - 06/24/2016 16:04 CDT Subjective Pain Symptoms : No DEWEY DUONG LPN - 06/24/2016 16:04 CDT Dependent Habits Exposure to Tobacco Smoke : Care provider denies smoking in home Smoking Status : Former smoker Tobacco 2A : Yes Tobacco Use/Currently Using : No Tobacco Use/Last 30 Days : No Tobacco Use/Last 12 months : Yes Type : Cigarettes: Less than 20 per day Tobacco Use/Advised to Quit : Yes Alcohol Use : No DEWEY DUONG LPN - 06/24/2016 16:04 CDT Caffeine Use Grid Caffeine Use : None Last Use : 09-20-13 DEWEY DUONG LPN - 06/24/2016 16:04 CDT Recreational Drug Use Grid Drug Use : None DEWEY DUONG LPN - 06/24/2016 16:04 CDT Source: [facility] POWERCHART Document Id: [id number] CDT!39 documented in this encounter Plan of Treatment Not on filedocumented as of this encounter Visit Diagnoses Not on filedocumented in this encounter
--- OUTSIDE RECORDS SUMMARY | 2022-05-19 14:45 | XMS_ITS | Encounter Summary ---
:1990 Author Organization [facility] Address [address] [place] [address] Care Team Providers Name Role Phone Unavailable Primary Care Provider Unavailable Encounter Details Date Type Department Care Team Description 02/19/2013 Hospital Encounter HX [facility] [place] Larry Souza, N.P. [address] [place] [phone] (Wo rk) Social History Tobacco Use Types Packs/Day Years Used Date Smoking Tobacco: Never Assessed Sex Assigned at Date Recorded Not on file documented as of this encounter Last Filed Vital Signs Vital Sign Reading Time Taken Comments Blood Pressure 118/72 02/19/2013 9:38 AM CDT Pulse 97 02/19/2013 9:38 AM CDT Temperature - - Respiratory Rate - - Oxygen Saturation - - Inhaled Oxygen Concentration - - Weight 82.9 kg (182 lb 12.2 oz) 02/19/2013 9:38 AM CDT Height 164 cm (5' 4.57) 02/19/2013 9:38 AM CDT Body Mass Index 30.82 02/19/2013 9:38 AM CDT documented in this encounter Progress Notes Briseyda Souza, N.P. - 02/19/2013 9:26 AM CDT [id number] CHIEF COMPLAINT/REASON FOR VISIT Pain in left upper back. HISTORY OF PRESENT ILLNESS Catrina is a 22-year-old female who is here today with concerns about pain in her left upper back and extending into her neck. She reports that last Monday morning which would have been 4 mornings ago she woke up with pain in her midback. She saw her chiropractor, Dr. Riggins, that day which seemed to help and then over the weekend she started experiencing more stiffness and tightness extending further up into her back and into her neck. She actually saw a chiropractor again yesterday as well. She has had 2 previous episodes of similar symptoms, one earlier in 2012 and one in late 2011 that seemed to improve with manager medicare marketing and conservative measures. She has been using some ibuprofen which does not seem to help too much. She has had no numbness or tingling. She denies any recent or past injury that could be contributing to her symptoms. She denies any headache. No visual changes. She has hadno fever. Otherwise had been feeling well. CURRENT MEDICATIONS New prescription today is Flexeril 10 mg one 3 times a day as needed for muscle pain or spasm. ALLERGIES No known drug allergies. PAST MEDICAL HISTORY/SURGICAL HISTORY Past medical history reviewed and unchanged, please see electronic medical record. VITAL SIGNS Temperature 37, pulse 97, blood pressure 118/72, O2 sat. is 99% on room air. PHYSICAL EXAMINATION GENERAL: Catrina is alert, oriented times 3, appears in no acute distress. HEART: Heart rate is regular and S1, S2 is present. No murmur or rub. LUNGS: Clear to auscultation. MUSCULOSKELETAL: Back is examined. She has no tenderness along her thoracic or cervical spine although she has some warmth and tightness and swelling noted in the left trapezius most notably above the left scapula that extends slightly up into the neck. Range of motion of upper extremities is not limited. She does report tenderness to palpation of the left trapezius. IMPRESSION/REPORT/PLAN Back pain. PLAN: Discussed with Catrina that I felt as though her symptoms are most likely coming from muscle tightness and stiffness. We discussed using 800 mg ibuprofen up to three times a day with food as well as a new prescription for Flexeril that she can try to see if this would help relax the muscles. Also discussed use of ice or heat as well as chiropractic and perhaps even massage therapy. She is to contact the clinic if her symptoms are not improving. Questions have been addressed and she is agreeable to this plan of care. PATIENT EDUCATION #1 Patient/parent/caregiver is ready to learn. No apparent learning barriers were identified. Learning preferences included listening. Explained diagnosis and treatment plan. Patient/parent/caregiver expressed understanding of the content. Ashley Bridges/zach Electronically Signed By: BRISEYDA SOUZA NP On: 02/21/2013 02:07 PM Source: [facility] MHSDOLBEYNONRADSYS Document Id: [id number] documented in this encounter Miscellaneous Notes Miscellaneous - Briseyda Souza NJason - 02/19/2013 10:10 AM CDT Ambulatory Patient Summary [address] [address] Visit Information Name: ARIS LEOS [facility] Number: [id number] Current Date: 02/19/2013 10:10:39 Physicians Attending Provider: BRISEYDA SOUZA NP Primary Care Provider: OFELIA RICARDO RN, CONCRETE MASON Your Medications Here is a list of your medications. It is important to take your medications as directed. Use a pillbox or chart to help remind you to take your medications. Please let your doctor or nurse know if you have problems taking your medications. Medication/Strength Dose Route Frequency Indications/Special Instructions/Comments cyclobenzaprine (Flexeril 10 mg oral tablet) 1 tab Oral three times a day as needed for Muscle spasm Attention: If you have any medications at home that are not on this list, DO NOT take them until youcontact your provider for clarification. Your Allergies & Intolerances Substance Reaction Symptoms Category Comments No Known Allergies Drug Your Problem List Problem Status Onset Comments Tinea pedis Active 10/02/2010 Iron deficiency anemia Active 06/28/2010 Your Upcoming Appointments Date Time Location Reason Provider No Appointments found Your Goals/Additional instructions: Source: [facility] POWERCHART Document Id: [id number] Miscellaneous - Briseyda Souza NJason - 02/19/2013 10:10 AM CDT Ambulatory Depart Summary [facility] [address] [facility] [place] [address] Visit Information Name: ARIS LEOS [facility] Number: [id number] Visit Date: 02/19/2013 10:10:38 Attending Provider: BRISEYDA SOUZA CLEANING ATTENDANT Primary Care Provider: OFELIA RICARDO RN, CONCRETE MASON ARIS LEOS has been given the following list of medications: Your Medications It is important to take your medications as directed. Use a pill box or chart to help remind you to take your medications. Please let your doctor or nurse know if you have problems taking your medications. Medication/Strength Dose Route Frequency Indications/Special Instructions/Comments cyclobenzaprine (Flexeril 10 mg oral tablet) 1 tab Oral three times a day as needed for Muscle spasm Attention: If you have any medications at home that are not on this list, DO NOT take them until youcontact your provider for clarification. Additional Information: Source: [facility] POWERCHART Document Id: [id number] Miscellaneous - Hardik Galvan, L.P.N. - 02/19/2013 9:38 AM CDT Adult Criminalist Technician Intake/History Adult Criminalist Technician Intake/History Entered On: 02/19/2013 9:43 CDT Performed On: 02/19/2013 9:38 CDT by HARDIK GALVAN CIVIL DESIGN TECHNICIAN, RT Intake Chief Complaint : concerned about pain in upper center of back and left shoulder since Fri. morning. Temperature Core : 37 DegC(Converted to: 98.6 DegF) Peripheral Pulse Rate : 97 /min Systolic Blood Pressure : 118 mmHg Diastolic Blood Pressure : 72 mmHg NIBP Mean : 87 mmHg BP Location : Right upper extremity Blood Pressure Cuff Size : Regular SpO2 : 99 % Oxygen Therapy : Room air Height : 164 cm(Converted to: 5 ft 5 inch(es), 64.57 inch(es)) Actual Weight : 82.9 kg(Converted to: 182 lb 12 oz) Weight Source : Standing scale Dosing Weight Clinic : 82.9 kg Clinic BSA : 1.94 Body Mass Index : 30.82 kg/m2 HARDIK GALVAN LPN, 02/19/2013 9:38 CDT General Info Information Given By : Patient Preferred Communication Mode : Verbal Languages : Moldovan HARDIK GALVAN LPN, 02/19/2013 9:38 CDT Subjective Pain Symptoms : Yes HARDIK GALVAN LPN, 02/19/2013 9:38 CDT Pain Pain Assessment Grid Pain 1 Location : Other: upper center back and shoulder Laterality : Left HARDIK GALVAN LPN, 02/19/2013 9:38 CDT Dependent Habits Tobacco Use/Currently Using : Yes Exposure to Tobacco Smoke : Patient smokes Smoking Status : Current every day smoker HARDIK GALVAN LPN, 02/19/2013 9:38 CDT Tobacco Use Grid Type : Cigarettes Cigarette Use Packs/Day : 0.5 Last Use : 10 min ago HARDIK GALVAN LPN, 02/19/2013 9:38 CDT Caffeine Use Grid Caffeine Use : Current Type : Soft drinks Frequency : Weekly Amount : 2 cans Last Use : 11am HARDIK GALVAN LPN, 02/19/2013 9:38 CDT Recreational Drug Use Grid Drug Use : None HARDIK GALVAN LPN, 02/19/2013 9:38 CDT Sexuality Sexually Active : Yes HARDIK GALVAN LPN, 02/19/2013 9:43 CDT [facility] Document Id: [id number] CDT!3 documented in this encounter Plan of Treatment Not on filedocumented as of this encounter Visit Diagnoses Not on filedocumented in this encounter
--- OUTSIDE RECORDS SUMMARY | 2022-05-19 14:45 | XMS_ITS | Encounter Summary ---
:1990 Author Organization [facility] Address [address] [place] [address] Care Team Providers Name Role Phone Elsewhere, Pcp Primary Care Provider Unavailable Encounter Details Date Type Department Care Team Description 10/11/2017 Nurse Triage Department of Erica Zapata R.N. Medicine, [facility], in [place], [place] [address] [place] [phone] Social History Tobacco Use Types Packs/Day Years Used Date Smoking Tobacco: Never Smokeless Tobacco: Never Sex Assigned at Date Recorded Not on file documented as of this encounter Miscellaneous Notes Telephone Encounter - Erica Huertas R.N. - 10/11/2017 1:27 PM CST Patient was provided aftercare instructions. OLOGY TEACHER documented in this encounter Plan of Treatment Not on filedocumented as of this encounter Visit Diagnoses Not on filedocumented in this encounter Care Teams Mess Attendant Crew Relationship Specialty Start Date End Date Elsewhere, Pcp PCP - General Family Medicine 09/05/17 06/26/18 documented as of this encounter
--- OUTSIDE RECORDS SUMMARY | 2022-05-19 14:45 | XMS_ITS | Encounter Summary ---
:1990 Author Organization [facility] Address [address] [place] [address] Care Team Providers Name Role Phone Unavailable Primary Care Provider Unavailable Encounter Details Date Type Department Care Team Description 05/09/2012 Hospital Encounter HX [facility] ED Christiano José M.D. [address] [place] [address] [place] [phone] (Wo rk) Social History Tobacco Use Types Packs/Day Years Used Date Smoking Tobacco: Never Assessed Sex Assigned at Date Recorded Not on file documented as of this encounter Last Filed Vital Signs Vital Sign Reading Time Taken Comments Blood Pressure 128/100 05/09/2012 12:45 PM CDT Pulse 106 05/09/2012 12:45 PM CDT Temperature - - Respiratory Rate 18 05/09/2012 12:45 PM CDT Oxygen Saturation - - Inhaled Oxygen Concentration - - Weight - - Height 168 cm (5' 6.14) 05/09/2012 12:45 PM CDT Body Mass Index - - documented in this encounter Discharge Summaries Juliette Gerardo R.N. - 05/09/2012 3:38 PM CDT ED Discharge Instructions [facility] [address] [place] [address] Name: ARIS LEOS Date of : 1990 12:00 AM Visit Date: 05/09/2012 12:29 PM Address: [address] [place] [address] [facility] [phone] Primary Care Provider: OFELIA RICARDO RN, DRAFTER MECHANICAL IMPORTANT: [facility] in [place] would like to thank you for allowing us to assist you with your healthcare needs. The following includes patient education materials and informationregarding your injury/illness. Chief Complaint: throat burn, sob Follow-Up Instructions: With: Address: When: STEAM OR VAPOR INHALATION OR SHOWER WITH DEEP INHALATIONS WILL BE HELPFUL Within As Needed Comments: With: Address: When: if starts running any fever in next one week check back in the clinic ,watch for any increasing shortness of breath or new symptoms Within As Needed Comments: With: Address: When: OFELIA RICARDO [address] [place] [address] [facility] Within As Needed Comments: With: Address: When: No work for rest of the day today Within As Needed Comments: Patient Education Materials: ED Tests and Procedures: Order Status Discharge Prescriptions & Home Medications: Medication/Strength Dose Route Frequency Indications/Special Instructions/Comments medroxyPROGESTERone (Depo-Provera) 150 mg Intramuscular every 90 days medroxyPROGESTERone (Depo-Provera Contraceptive 150 mg/ml intramuscular suspension) 150 mg Intramuscular every 3 months Comment: Attention: If you have any medications at home not on this list, DO NOT take them until you contact your provider for clarification. Medication Reconciliation: Reconciliation is a process of identifying the most accurate list of all medications a patient is taking - including name, dosage, frequency, and route - and using this list to provide to the patient information about how to take those medications. ARIS LEOS or jessicaee has reviewed the home medications you have listed with us. Review the following instructions: You have NOT received any prescriptions and you have told us you are not currently taking any home medications You have NOT received any prescriptions. You have been provided a discharge medications list and you may CONTINUE taking your medications as previously prescribed by your regular providers. You have received the listed prescriptions and BEGIN all listed prescriptions as directed. Since you have listed no home medications, please check with your family doctor if you are taking any other medications. You have received the listed prescriptions and BEGIN all listed prescriptions as directed. Youhave been provided a discharge medications list and you may CONTINUE all home medications as previously prescribed by your regular providers. You have received the listed prescriptions and BEGIN all listed prescriptions as directed. Youhave been provided a discharge medications list. The following CHANGES have been made to your medication list; Otherwise, CONTINUE all home medications as previously prescribed by your regular provider. IMPORTANT: We examined and treated you today [...] arrange a ride home with a responsible green party. IDAFNE HAYLEY ANNE , or responsible green party have received this information and my questions have been answered. I have discussed any challenges I see with this plan with the nurse or physician. Patient Signature or Responsible Constitution Party/Relationship Date/Time Provider Signature Date/Time Medication Reconciliation: Reconciliation is a process of identifying the most accurate list of all medications a patient is taking - including name, dosage, frequency, and route - and using this list to provide to the patient information about how to take those medications. ARIS LEOS or designee has reviewed the home medications you have listed with us. Review the following instructions: You have NOT received any prescriptions and you have told us you are not currently taking any home medications You have NOT received any prescriptions. You have been provided a discharge medications list and you may CONTINUE taking your medications as previously prescribed by your regular providers. You have received the listed prescriptions and BEGIN all listed prescriptions as directed. Since you have listed no home medications, please check with your family doctor if you are taking any other medications. You have received the listed prescriptions and BEGIN all listed prescriptions as directed. Youhave been provided a discharge medications list and you may CONTINUE all home medications as previously prescribed by your regular providers. You have received the listed prescriptions and BEGIN all listed prescriptions as directed. Youhave been provided a discharge medications list. The following CHANGES have been made to your medication list; Otherwise, CONTINUE all home medications as previously prescribed by your regular provider. IMPORTANT: We examined and treated you today [...] arrange a ride home with a responsible green party. DAFNE Barroso HAYLEY ANNE , or responsible green party have received this information and my questions have been answered. I have discussed any challenges I see with this plan with the nurse or physician. Patient Signature or Responsible Constitution Party/Relationship Date/Time Provider Signature Date/Time Source: [facility] POWERCHART Document Id: [id number] Juliette Gerardo R.N. - 05/09/2012 3:38 PM CDT ED Depart Summary [facility] Emergency Department Clinical Discharge Summary PERSON INFORMATION Name ARIS LEOS Age 21 Years 1990 12:00 AM Sex Female Language Mosotho PCP OFELIA RICARDO RN, DRAFTER MECHANICAL Marital Status Single N [id number] Visit Id Visit Reason throat burn, sob Specialty Enc Type Emergency Med Service Emergency Medicine Referred by Track Group [facility] ED Discharge 05/09/2012 1:00 PM Tracking Id [id number] Checkout 05/09/2012 1:00 PM Checkin 05/09/2012 12:29 PM Acuity Dispo Type * Discharged to Home or Self Care Arrival 05/09/2012 12:29 PM Reg Status LOS 000 00:31 Address: [address] [place] [address] [phone] Comment: PROVIDER INFORMATION Provider Role Provider Contact Time IZABELLA BARRON MD ED Provider 05/09/12 12:54 JULIETTE GERARDO PROJECT INTERN Nurse 05/09/12 14:02 DIAGNOSIS Respiratory problem; Dyspnea Comment: PATIENT EDUCATION INFORMATION Instructions: Follow up: With: Address: When: STEAM OR VAPOR INHALATION OR SHOWER WITH DEEP INHALATIONS WILL BE HELPFUL Within As Needed Comments: With: Address: When: if starts running any fever in next one week check back in the clinic ,watch for any increasing shortness of breath or new symptoms Within As Needed Comments: With: Address: When: OFELIA RICARDO [address], [place] [id number] Business (1) Within As Needed Comments: With: Address: When: No work for rest of the day today Within As Needed Comments: Source: [facility] TRAFI Document Id: [id number] documented in this encounter Nursing Notes Juliette Gerardo R.N. - 05/09/2012 3:37 PM CDT ED Pain Assessment ED Pain Assessment Entered On: 05/09/2012 15:37 CDT Performed On: 05/09/2012 15:37 CDT by JULIETTE GERARDO RN Pain Assessment Pain Symptoms : No JULIETTE GERARDO RN - 05/09/2012 15:37 CDT Source: [facility] TRAFI Document Id: [id number] Juliette Gerardo R.N. - 05/09/2012 12:58 PM CDT Poison control advice Poison control contacted and recommended observe for fever and productive cough and to report back to DRAnia Source: [facility] TRAFI Document Id: [id number] Juliette Gerardo R.N. - 05/09/2012 12:55 PM CDT ED Primary Assessment ED Primary Assessment Entered On: 05/09/2012 12:57 CDT Performed On: 05/09/2012 12:55 CDT by JULIETTE GERARDO RN Reason For Visit Problems(Active) Iron deficiency anemia Name of Problem: Iron deficiency anemia ; Onset Date: 06/28/2010 ; Recorder: BRENNA CRAIG DNP, FNP; Confirmation: Confirmed ; Classification: Medical ; Code: 815816 ; Contributor System: RealSelf ; Last Updated: 02/15/2011 11:49 CDT ; Life Cycle Date: 02/15/2011 ; Life Cycle Status: Active ; Responsible Provider: BRENNA CRAIG DNP, FNP; Vocabulary: SNOMED CT Tinea pedis Name of Problem: Tinea pedis ; Onset Date: 10/02/2010 ; Recorder: ROWAN GONSALES MD; Confirmation: Confirmed ; Classification: Medical ; Code: 1231 ; Contributor System: PowerChart ; Last Updated: 01/20/2011 15:48 CDT ; Life Cycle Date: 11/15/2010 ; Life Cycle Status: Active ; Responsible Provider: ROWAN GONSALES MD; Vocabulary: ICD-9-CM Diagnoses(Active) Respiratory problem Date: 05/09/2012 ; Diagnosis Type: Discharge ; Confirmation: Complaint of ; Clinical Dx: Respiratory problem ; Classification: Medical ; Clinical Service: Emergency medicine ; Code:PNED ; Probability: 0 ; Diagnosis Code: [id number] Triage Chief Complaint Description : see triage note Information Given By : Patient Accompanied By : Mother, Sibling Mode of Arrival ED : Private vehicle Track : Medical Languages : Mosotho JULIETTE GERARDO RN - 05/09/2012 12:55 CDT Pain Assessment Pain Symptoms : No JULIETTE GERARDO RN - 05/09/2012 12:55 CDT Allergy Allergies (Active) NKA Estimated Onset Date: Unspecified ; Created By: CATHLEEN KURTZ LPN; Reaction Status: Active ;Category: Drug ; Substance: NKA ; Type: Allergy ; Updated By: CATHLEEN KURTZ LPN; Reviewed Date: 05/09/2012 12:55 CDT Respiratory Airway : Patent Respirations : Unlabored Respiratory Pattern : Regular JULIETTE GERARDO RN - 05/09/2012 12:55 CDT Cardiovascular Heart Rhythm : Regular Skin Color : Normal for ethnicity Skin Description : Dry Skin Temperature : Warm JULIETTE GERARDO RN - 05/09/2012 12:55 CDT Neurological Last Well Time Known : Not applicable Level of Consciousness : Alert Orientation : Oriented x 3 Characteristics of Speech : Clear JULIETTE GERARDO RN - 05/09/2012 12:55 CDT ED Psychosocial Affect/Behavior : Calm, Cooperative, Appropriate Domestic Abuse Concerns : None JULIETTE GERARDO RN - 05/09/2012 12:55 CDT Gastrointestinal Nutrition ED : Adequate JULIETTE GERARDO RN - 05/09/2012 12:55 CDT Musculoskeletal Fall Prevention Education Provided : JULIETTE VILLANUEVA RN - 05/09/2012 12:55 CDT Social Habits Tobacco Use/Currently Using : Yes Tobacco Use/Advised to Quit : Yes Exposure to Tobacco Smoke : Patient smokes Smoking Status : Current every day smoker JULIETTE GERARDO RN - 05/09/2012 12:55 CDT Tobacco Use Grid Type : Cigarettes Cigarette Use Packs/Day : 0.5 Last Use : 10 min ago JULIETTE GERARDO RN - 05/09/2012 12:55 CDT Alcohol Use Grid Alcohol Use : No JULIETTE GERARDO RN - 05/09/2012 12:55 CDT Recreational Drug Use Grid Drug Use : None JULIETTE GERARDO RN - 05/09/2012 12:55 CDT Source: [facility] Document Id: [id number] documented in this encounter ED Notes Juliette Gerardo R.N. - 05/09/2012 3:37 PM CDT ED Disposition Summary ED Disposition Summary Entered On: 05/09/2012 15:37 CDT Performed On: 05/09/2012 15:37 CDT by JULIETTE GERARDO PROJECT INTERN Disposition Summary Accompanied By : Mother Mode of Discharge : Ambulatory Transportation : Private vehicle Printed Discharge Instructions Given to Patient : Yes Patient Status at Discharge from ED : Improved JULIETTE GERARDO RN - 05/09/2012 15:37 CDT Source: [facility] Document Id: [id number] Izabella Barron M.D. - 05/09/2012 12:55 PM CDT Respiratory problem Patient: AIRS LEOS Age: 21 years Sex: Female : 1990 Author: IZABELLA BARRON MD Attachments: None Associated Diagnosis: Dyspnea Basic Information Time seen: Immediately upon arrival. History source: Patient. Arrival mode: Private vehicle. History of Present Illness The patient presents with difficulty breathing,minimal and Patient was spraying Rid on the wasp net when the nozzle got stuck and accidently inhaled the fumes.Injury happened at home , Symptoms much better as she arrived to the ER.. The onset was 45 minutes ago. The course/duration of symptoms is improving. Degree at onset moderate. Degree at present mild. The Exacerbating factors is none. The Relieving factors is none. Risk factors consist of none. Prior episodes: none. Therapy today: none. Associated symptoms: denies chest pain, denies fever, denies chills, denies cough, denies nausea, denies vomiting, denies abdominal pain, denies back pain, denies weight gain and denies hemoptysis. Additional history: she was bit by a wasp about a week ago.. nurse called poison control , treatment is symptomatic the RID is irritant to eyes and lungs . Review of Systems Constitutional symptoms: no fever no chills, no sweats, no weakness. Skin symptoms: no jaundice no rash, no pruritus. Eye symptoms: no recent vision problems no pain, no discharge, no icterus, no diplopia, no blurred vision. ENMT symptoms: no ear pain no sore throat, no nasal congestion, no sinus pain. Respiratory symptoms: no orthopnea no cough, no hemoptysis. Cardiovascular symptoms: no chest pain Gastrointestinal symptoms: no abdominal pain no nausea. Additional review of systems information:All other systems reviewed and otherwise negative. Health Status Allergies: . Allergic Reactions (Selected) NKA Medications: (Selected). Prescriptions Ordered Depo-Provera: 150 mg, IM, q3mo, 1 each Documented Medications Documented Depo-Provera Contraceptive 150 mg/ml intramuscular suspension: 150 mg, 1 mL, IM, every 3 months Past Medical/ Family/ Social History Medical history: Medical history. No active or resolved past medical history items have been selected or recorded. Surgical history: Surgical history. No active procedure history items have been selected or recorded. Family history: Family history. Diabetes mellitus Mother Problem list: . All Problems Iron deficiency anemia / [id number] / Confirmed Tinea pedis / 110.4 / Confirmed Physical Examination Vital signs: Per nurse's notes. General: Alert. no acute distress. Skin: Warm. intact. Head: Normocephalic. atraumatic. Neck: Supple. trachea midline. no tenderness. Eye: Pupils are equal, round and reactive to light. extraocular movements are intact. normal conjunctiva. vision unchanged. Ears, nose, mouth and throat: Tympanic membranes clear. Oral mucosa moist. No pharyngeal erythema orexudate. Cardiovascular: Regular rate and rhythm. No murmur. Normal peripheral perfusion. Respiratory: Breath sounds are equal. Symmetrical chest wall expansion. Respirations: regular. Breath sounds: clear. Chest wall: No tenderness. No deformity. Back: Nontender. Normal range of motion. Musculoskeletal: Normal ROM. normal strength. Gastrointestinal: Soft. Normal bowel sounds. Genitourinary: No tenderness. no discharge. Neurological: Alert and oriented to person, place, time, and situation. No focal neurological deficit observed. CN II-XII intact. normal sensory observed. Lymphatics: No lymphadenopathy Psychiatric: Cooperative Medical Decision Making Differential Diagnosis:lung mucosa irritation from RID asirritant.Accident inhalation.. Reexamination/ Reevaluation Re-examination/Re-evaluation:Vital signs Results included from flowsheet : Vital Signs, 05/09/2012 12:45 CDT Temperature Core 37.5 C Peripheral Pulse Rate 106 /min HI Respiratory Rate 18 /min SpO2 97 % Systolic Blood Pressure 128 mmHg Diastolic Blood Pressure 100 mmHg >HHI Mean Arterial Pressure 109 mmHg BP Location Left upper Course Improving. Impression and Plan Diagnosis Dyspnea (Discharge, Emergency medicine, Medical) Respiratory tract irritation from Rid as an irritant. Discharge plan Condition: Improved. Dispositioned: To home. Patient was given the following educational materials: WATCH FOR NEW SYMPTOMS OR FEVER OVER NEXT ONEWEEK , NOTE FOR WORK IS GIVEN. Follow up with: STEAM OR VAPOR INHALATION OR SHOWER WITH DEEP INHALATIONS WILL BE HELPFUL Within As Needed; if starts running any fever in next one week check back in the clinic ,watch for any increasing shortness of breath or new symptoms Within As Needed; OFELIA HALEIGH Within As Needed; No work for rest of the day today Within As Needed. Counseled: Patient, Family. Electronically Signed By: IZABELLA BARRON MD On: 05/09/2012 02:26 PM Modified by and Electronically Signed by: IZABELLA BARRON MD On: 05/09/2012 02:26 PM [facility] Document Id: [id number]} Juliette Gerardo R.N. - 05/09/2012 12:45 PM CDT ED Triage Assessment ED Triage Assessment Entered On: 05/09/2012 12:55 CDT Performed On: 05/09/2012 12:45 CDT by JULIETTE GERARDO RN Reason For Visit Problems(Active) Iron deficiency anemia Name of Problem: Iron deficiency anemia ; Onset Date: 06/28/2010 ; Recorder: BRENNA CRAIG DNP, SENIOR RESEARCH PROJECT MANAGER; Confirmation: Confirmed ; Classification: Medical ; Code: 916707 ; Contributor System: PowerChart ; Last Updated: 02/15/2011 11:49 CDT ; Life Cycle Date: 02/15/2011 ; Life Cycle Status: Active ; Responsible Provider: BRENNA CRAIG DNP, SENIOR RESEARCH PROJECT MANAGER; Vocabulary: SNOMED CT Tinea pedis Name of Problem: Tinea pedis ; Onset Date: 10/02/2010 ; Recorder: ROWAN GONSALES MD; Confirmation: Confirmed ; Classification: Medical ; Code: 1231 ; Contributor System: PowerChart ; Last Updated: 01/20/2011 15:48 CDT ; Life Cycle Date: 11/15/2010 ; Life Cycle Status: Active ; Responsible Provider: ROWAN GONSALES MD; Vocabulary: ICD-9-CM Diagnoses(Active) Respiratory problem Date: 05/09/2012 ; Diagnosis Type: Reason For Visit ; Confirmation: Complaint of; Clinical Dx: Respiratory problem ; Classification: Medical ; Clinical Service: Emergency medicine ; Code: PNED ; Probability: 0 ; Diagnosis Code: [id number] Triage Chief Complaint Description : States at 1215 she sprayed Raid on a wasp and inhaled. Had severe burning of throat and felt short of breath. Now burning and feeling short of breath has subsided. Lung clear no wheezing noted. Has loose cough previous to incident Information Given By : Patient Accompanied By : Mother, Sibling Mode of Arrival ED : Private vehicle Track : Medical Languages : Mosotho Vital Signs Assessed : Yes JULIETTE GERARDO RN - 05/09/2012 12:45 CDT Vital Signs Temperature Core : 37.5C(Converted to: 99.5DegF) Peripheral Pulse Rate : 106/min (HI) Respiratory Rate : 18/min Systolic Blood Pressure : 128mmHg Diastolic Blood Pressure : 100mmHg (>HHI) NIBP Mean : 109mmHg BP Location : Left upper extremity SpO2 : 97% Oxygen Therapy : Room air Height : 168cm(Converted to: 5ft 6inch(es)) Height Source : Stated Estimated Weight : 66kg Estimated Weight Conversion to Pounds : 145.20lb JULIETTE GERARDO RN - 05/09/2012 12:45 CDT Pain Assessment Pain Symptoms : No JULIETTE GERARDO RN - 05/09/2012 12:45 CDT ED Physician Notification Time ED Physician Notification Time : 05/09/2012 12:30 CDT JULIETTE GERARDO RN - 05/09/2012 12:45 CDT Allergy Allergies (Active) NKA Estimated Onset Date: Unspecified ; Created By: CATHLEEN KURTZ LPN; Reaction Status: Active ;Category: Drug ; Substance: NKA ; Type: Allergy ; Updated By: CATHLEEN KURTZ LPN; Reviewed Date: 05/09/2012 12:55 CDT Immunizations Last Tetanus : > 5 years Influenza : None JULIETTE GERARDO RN - 05/09/2012 12:45 CDT Source: [facility] Document Id: [id number] documented in this encounter Miscellaneous Notes Miscellaneous - Juliette Gerardo R.N. - 05/09/2012 3:37 PM CDT Valuables/Belongings Valuables/Belongings Entered On: 05/09/2012 15:37 CDT Performed On: 05/09/2012 15:37 CDT by JULIETTE GERARDO RN Valuables/Belongings Valuables/Belongings Grid Valuables with Patient Clothes, Patient Valuables : Pants, Shirt, Shoes, Undergarments JULIETTE GERARDO RN - 05/09/2012 15:37 CDT Home Medication Disposition : None brought in with patient JULIETTE GERARDO RN - 05/09/2012 15:37 CDT Source: [facility] Document Id: [id number] Miscellaneous - Juliette Gerardo R.N. - 05/09/2012 12:29 PM CDT Facility Charge Ticket Facility Charge Ticket Entered On: 05/09/2012 15:38 CDT Performed On: 05/09/2012 12:29 CDT by JULIETTE GERARDO RN Facility Charge TVL Level for Facility Charge Ticket : Level 3 [facility] Total Points with Diagnosis Control : 5 [facility] Visit Level : 44784 Level 3 ANIA LINDER - 05/23/2012 15:05 CDT Mode of Arrival ED : Private vehicle [facility] Mode of Arrival Interpreted : Standard [facility] Process Management : None [facility] Order Management : None 30 Minutes Critical Care : No [facility] Nursing Assessment : Triage and 1-2 nursing assessments [facility] Disposition : Discharge JULIETTE GERARDO RN - 05/09/2012 15:37 CDT Chief Complaint 8.50.02 Reason For Visit Category : Cardiorespiratory ED Chief Complaint Cardiorespiratory 8.5 : Dyspnea TVL Calc : 20 TVL for Facility Charge Ticket Dx : Level 5 ANIA LINDER - 05/23/2012 15:05 CDT [facility] Document Id: [id number] documented in this encounter Plan of Treatment Not on filedocumented as of this encounter Visit Diagnoses Not on filedocumented in this encounter
--- OUTSIDE RECORDS SUMMARY | 2022-05-19 14:45 | XMS_ITS | Encounter Summary ---
:1990 Author Organization [facility] Address [address] [place] [address] Care Team Providers Name Role Phone Seda Solis P.A.-C. Primary Care Provider Encounter Details Date Type Department Care Team Description 09/11/2018 Clinical Communication Department of [facility] Mary Solis [facility] [place] [facility], [id number] [place] [address] [phone] (Work) [phone] Social History Tobacco Use Types Packs/Day Years Used Date Smoking Tobacco: Never Smokeless Tobacco: Never Sex Assigned at Date Recorded Not on file documented as of this encounter Plan of Treatment Not on filedocumented as of this encounter Visit Diagnoses Not on filedocumented in this encounter Care Teams Putter In Relationship Specialty Start Date End Date Seda Solis P.A.-C. PCP - General Family Medicine 06/27/18 07/24/19 documented as of this encounter
--- OUTSIDE RECORDS SUMMARY | 2022-05-19 14:45 | XMS_ITS | Encounter Summary ---
:[address] [facility] Address [address] [place] [address] Care Team Providers Name Role Phone Seda Solis P.A.-C. Primary Care Provider Encounter Details Date Type Department Care Team Description 02/13/2019 Nurse Triage Department of [facility], Jania Shipman R.N. Medicine, [facility], in [address] [place], [place] [address] [place] [id number] [place] [address] [phone] Social History Tobacco Use Types Packs/Day Years Used Date Smoking Tobacco: Never Smokeless Tobacco: Never Sex Assigned at Date Recorded Not on file documented as of this encounter Plan of Treatment Not on filedocumented as of this encounter Visit Diagnoses Not on filedocumented in this encounter Care Teams Guest Relation Officer Relationship Specialty Start Date End Date Seda Solis P.A.-C. PCP - General Family Medicine 06/27/18 07/24/19 documented as of this encounter
--- OUTSIDE RECORDS SUMMARY | 2022-05-19 14:45 | XMS_ITS | Encounter Summary ---
:1990 Author Organization [facility] Address [address] [place] [address] Care Team Providers Name Role Phone Unavailable Primary Care Provider Unavailable Encounter Details Date Type Department Care Team Description 09/18/2012 Hospital Encounter HX [facility] Brenna Craig, GRIS, Zulema.N.P., D. N.P. [address] [place] [address] (Wo rk) Social History Tobacco Use Types Packs/Day Years Used Date Smoking Tobacco: Never Assessed Sex Assigned at Date Recorded Not on file documented as of this encounter Last Filed Vital Signs Vital Sign Reading Time Taken Comments Blood Pressure 116/68 09/18/2012 1:55 PM SUBSTATION WIREMAN Pulse 88 09/18/2012 1:55 PM SUBSTATION WIREMAN Temperature - - Respiratory Rate 18 09/18/2012 1:55 PM SUBSTATION WIREMAN Oxygen Saturation - - Inhaled Oxygen Concentration - - Weight 82.7 kg (182 lb 5.1 oz) 09/18/2012 1:55 PM SUBSTATION WIREMAN Height - - Body Mass Index 29.3 05/09/2012 12:45 PM CDT documented in this encounter Progress Notes Brenna Craig, D.N.P., C.N.P. - 09/18/2012 1:49 PM CST [id number] CHIEF COMPLAINT/REASON FOR VISIT Runny nose and cough. HISTORY OF PRESENT ILLNESS The patient is a 21-year-old female that presents to the clinic today with chief complaint of havingURI like symptoms for the past 48 hours duration. She indicates that she has not had any exposure toany kind of viral or bacterial infections that she is aware of. 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 She otherwise denies having any other further concerns or issues. She denies having any nausea or vomiting, shortness of breath, or difficulty breathing and reports that she has not had any changes in urination or bowel habits. She does report that she has been using [id number] Tylenol to help with the symptoms with minimal symptom improvement. PAST MEDICAL/SURGICAL HISTORY Reviewed. Please see chart. FAMILY HISTORY Reviewed. Please see chart. CURRENT MEDICATIONS Reviewed. Please see chart. ALLERGIES Reviewed. Please see chart. PHYSICAL EXAMINATION OBJECTIVE: Patient is alert/oriented x 3. HEAD: Normocephalic/atraumatic. PUPILS: HARITHA. OROPHARYNX: [place] and moist. TMs: Bilateral TMs are clear, bony landmarks noted and WNL. NARES: Bilateral nares are patent with clear nasal secretions noted bilaterally. NECK: No anterior/posterior lymphadenopathy noted. HEART: Regular S1, S2, no murmurs, rubs or gallops noted. LUNGS: Clear to auscultation, no prolonged expiratory phases, wheezing, rales or rhonchi noted. SKIN: Without unusual rashes or suspicious lesions LABS: Urine gonorrhea and chlamydia tests are pending for routine prophylaxis and screening, Influenza A is negative. Influenza B is positive. IMPRESSION/REPORT/PLAN Influenza B. PLAN: Discussed the findings with the patient. Presently, at this time, the patient was excused for the remainder of the week from work. Indicated this was of viral etiology and would resolve on its own, though indicated if worsening symptoms follow-up would be warranted. Recommend humidified air and encouraging fluid intake and follow up as need. Patient felt comfortable with this treatment plan. Per the patient's request, we will also plan on contacting her at [phone] regarding her urine gonorrhea and chlamydia results in which she authorizes me the ability to leave a detailed message at this number. Patient otherwise denies having any other further questions or concerns. Patient ambulated out of the clinic in no acute distress. PATIENT EDUCATION: Ready to learn No apparent learning barriers were identified Learning preferences include listening Explained diagnosis and treatment plan Patient/Child/Caregiver expressed understanding of the content Brenna Craig D.N.P./Kiera/ash Electronically Signed By: BRENNA CRAIG DNP, FNP On: 09/20/2012 09:55 AM Source: [facility] [id number] Document Id: [id number] TATION WIREMAN documented in this encounter Miscellaneous Notes Miscellaneous - Brenna Craig D.N.P., C.N.P. - 09/18/2012 2:56 PM SUBSTATION WIREMAN Ambulatory Patient Summary [address] [address] Visit Information Name: ARIS LEOS [facility] Number: [id number] Current Date: 09/18/2012 14:56:37 Physicians Attending Provider: BRENNA CRAIG DNP, FNP Primary Care Provider: OFELIA RICARDO RN, LATIN AMERICAN STUDIES PROFESSOR Your Medications Here is a list of your medications. It is important to take your medications as directed. Use a pillbox or chart to help remind you to take your medications. Please let your doctor or nurse know if you have problems taking your medications. Medication/Strength Dose Route Frequency Indications/Special Instructions/Comments No Medications found Attention: If you have any medications at [...] No Appointments found Your Goals/Additional instructions: Source: [facility] POWERCHART Document Id: [id number] TATION WIREMAN Miscellaneous - Brenna Craig D.N.P., C.N.P. - 09/18/2012 2:56 PM SUBSTATION WIREMAN Ambulatory Depart Summary [address] [address] Visit Information Name: ARIS LEOS [facility] Number: [id number] Visit Date: 09/18/2012 14:56:36 Attending Provider: BRENNA CRAIG DNP, LIBRARY SCIENCE INSTRUCTOR Primary Care Provider: OFELIA RICARDO RN, LATIN AMERICAN STUDIES PROFESSOR ARIS LEOS has been given the following list of medications: Your Medications It is important to take your medications as directed. Use a pill box or chart to help remind you to take your medications. Please let your doctor or nurse know if you have problems taking your medications. Medication/Strength Dose Route Frequency Indications/Special Instructions/Comments No Medications found Attention: If you have any medications at home that are not on this list, DO NOT take them until youcontact your provider for clarification. Additional Information: Source: [facility] POWERCHART Document Id: [id number] TATION WIREMAN Miscellaneous - Darius Sandoval, L.P.N. - 09/18/2012 1:55 PM CST Adult Dining Car Waiter/Waitress Intake/History Adult Dining Car Waiter/Waitress Intake/History Entered On: 09/18/2012 14:00 SUBSTATION WIREMAN Performed On: 09/18/2012 13:55 SUBSTATION WIREMAN by DARIUS SANDOVAL LPN Intake Chief Complaint : Body aches, chills, cough, and congestion. Would like to make sure its just a coldbefore returning to work. Temperature Core : 37.1C(Converted to: 98.8DegF) Peripheral Pulse Rate : 88/min Respiratory Rate : 18/min Systolic Blood Pressure : 116mmHg Diastolic Blood Pressure : 68mmHg NIBP Mean : 84mmHg BP Location : Right upper extremity Blood Pressure Cuff Size : Regular SpO2 : 99% Oxygen Therapy : Room air Actual Weight : 82.7kg(Converted to: 182lb 5oz) Weight Source : Standing scale Dosing Weight Clinic : 82.70kg DARIUS SANDOVAL LPN - 09/18/2012 13:55 SUBSTATION WIREMAN Subjective Pain Symptoms : No DARIUS SANDOVAL LPN - 09/18/2012 13:55 SUBSTATION WIREMAN Dependent Habits Tobacco Use/Currently Using : Yes Exposure to Tobacco Smoke : Patient smokes Smoking Status : Current every day smoker DARIUS SANDOVAL LPN - 09/18/2012 13:55 SUBSTATION WIREMAN Tobacco Use Grid Type : Cigarettes Cigarette Use Packs/Day : 0.5 Last Use : 10 min ago DARIUS SANDOVAL LPN - 09/18/2012 13:55 SUBSTATION WIREMAN Alcohol Use : No DARIUS SANDOVAL LPN - 09/18/2012 13:55 SUBSTATION WIREMAN Caffeine Use Grid Caffeine Use : Current Type : Soft drinks Frequency : Weekly Amount : 2 cans Last Use : 11am DARIUS SANDOVAL LPN - 09/18/2012 13:55 SUBSTATION WIREMAN Recreational Drug Use Grid Drug Use : None DARIUS SANDOVAL LPN - 09/18/2012 13:55 SUBSTATION WIREMAN Allergy Allergies (Active) NKA Estimated Onset Date: Unspecified ; Created By: CATHLEEN KURTZ LPN; Reaction Status: Active ;Category: Drug ; Substance: NKA ; Type: Allergy ; Updated By: CATHLEEN KURTZ LPN; Reviewed Date: 09/18/2012 13:48 SUBSTATION WIREMAN Source: [facility] SETiT Document Id: [id number] TATION WIREMAN Miscellaneous - Darius Sandoval, L.P.N. - 09/18/2012 1:55 PM CST Health Assessment Health Assessment Entered On: 09/18/2012 14:00 SUBSTATION WIREMAN Performed On: 09/18/2012 13:55 SUBSTATION WIREMAN by DARIUS SANDOVAL LPN Health Assessment Complete Health Assessment Complete or Modified : Annual Health Assessment Annual Health Assessment Completed : Yes DARIUS SANDOVAL LPN - 09/18/2012 13:55 SUBSTATION WIREMAN Nutrition Nutrition Risk Factors by History Adult : None DARIUS SANDOVAL LPN - 09/18/2012 13:55 SUBSTATION WIREMAN Functional Current Daily Living Assistance : None DARIUS SANDOVAL LPN - 09/18/2012 13:55 SUBSTATION WIREMAN Dependent Habits Tobacco Use/Currently Using : Yes Exposure to Tobacco Smoke : Patient smokes Smoking Status : Current every day smoker DARIUS SANDOVAL LPN - 09/18/2012 13:55 SUBSTATION WIREMAN Tobacco Use Grid Type : Cigarettes Cigarette Use Packs/Day : 0.5 Last Use : 10 min ago DARIUS SANDOVAL [facility] 09/18/2012 13:55 SUBSTATION WIREMAN Alcohol Use : No DARIUS SANDOVAL [facility] 09/18/2012 13:55 SUBSTATION WIREMAN Caffeine Use Grid Caffeine Use : Current Type : Soft drinks Frequency : Weekly Amount : 2 cans Last Use : 11am DARIUS SANDOVAL [facility] 09/18/2012 13:55 SUBSTATION WIREMAN Recreational Drug Use Grid Drug Use : None DARIUS SANDOVAL [facility] 09/18/2012 13:55 SUBSTATION WIREMAN Psychosocial Domestic Abuse Concerns : None DARIUS SANDOVAL [facility] 09/18/2012 13:55 SUBSTATION WIREMAN Advance Directive Advanced Directives : No DARIUS SANDOVAL [facility] 09/18/2012 13:55 SUBSTATION WIREMAN Educ Needs Learning Style Preference Adult Grid Patient : None Family : None DARIUS SANDOVAL [facility] 09/18/2012 13:55 SUBSTATION WIREMAN Source: [facility] POWERCHART Document Id: [id number] TATION WIREMAN documented in this encounter Plan of Treatment Not on filedocumented as of this encounter Procedures Procedure Name Priority Date/Time Associated Diagnosis Comme nts INFLUENZA A/B Routine 09/18/2012 2:34 PM Results for this SUBSTATION WIREMAN procedure are i n the results section. N GONOR AMP SRC Routine 09/18/2012 2:33 PM Result s for this SUBSTATION WIREMAN procedure are i n the results section. N GONOR AMP DNA Routine 09/18/2012 2:33 PM Result s for this SUBSTATION WIREMAN procedure are i n the results section. C TRACH AMP SRC Routine 09/18/2012 2:33 PM Result s for this SUBSTATION WIREMAN procedure are i n the results section. C TRACH AMP RNA Routine 09/18/2012 2:33 PM Result s for this SUBSTATION WIREMAN procedure are i n the results section. documented in this encounter Results (ABNORMAL) Influenza A/B (09/18/2012 2:34 PM SUBSTATION WIREMAN) [facility] Method Time Signature HXInfluenza A (POSITIVE POWERCHART and B AG ) Comment: If result is negative: The sensitivity/specificity of the Influ kuldip A screening test is 80% and 93% respectively. The sensitivity/specificity of the Influ kuldip B screening test is 65% and 97% respectively. If further testing is indicated, please call the laboratory to order the referred MML PCR test. HXFinal Positive for Influenzae B protein antigen. POWERCHART HXFinal This result does not identify any specific Influenzae B POWERCHART virus subtype. HXFinal Negative for Influenzae A protein antigen. POWERCHART HXFinal Reference: Negative for Influenzae A and Influenzae B POWERCHART protein antigens. Specimen (Source) Anatomical Collection Method Collection Time Re ceived Time Location / / Volume Laterality Nasal 09/18/2012 2:34 PM SUBSTATION WIREMAN Brenna Craig APRN, C.N.P., D.N.P. LAB MICROBIOLO GY - GENERAL ORDERABLES Performing Organization Address City/State/ZIP Code Phon e Number POWERCHART HX-N gonor Amp DNA (09/18/2012 2:33 PM SUBSTATION WIREMAN) athologist Signature HXN gonor Amp Negative POWERCHART DNA-[place] Specimen (Source) Anatomical Collection Method Collection Time Re ceived Time Location / / Volume Laterality 09/18/2012 2:33 PM SUBSTATION WIREMAN Narrative POWERCHART - 09/20/2012 8:45 AM SUBSTATION WIREMAN Test Performed by: [place] [address] Business Analysis Specialist: Raji encarnacion III, M.D. Brenna Craig APRN C.N.P., D.N.P. LAB HISTORICAL ORDERS Performing Organization Address City/[facility]/ZIP Code Phon e Number POWERCHART HX-N gonor Amp Src (09/18/2012 2:33 PM SUBSTATION WIREMAN) athologist Signature HXN gonor Amp urine POWERCHART Src-[place] Specimen (Source) Anatomical Collection Method Collection Time Re ceived Time Location / / Volume Laterality 09/18/2012 2:33 PM SUBSTATION WIREMAN Brenna Craig APRN, C.N.P., D.N.P. LAB HISTORICAL ORDERS Performing Organization Address City/State/ZIP Code Phon e Number POWERCHART HX-C trach Amp RNA (09/18/2012 2:33 PM SUBSTATION WIREMAN) [facility] gist Method Time Signature Chlamydia Negative POWERCHART trachomatis amplified RNA Specimen (Source) Anatomical Collection Method Collection Time Re ceived Time Location / / Volume Laterality 09/18/2012 2:33 PM SUBSTATION WIREMAN Brenna Craig APRN, C.N.P., D.N.P. LAB HISTORICAL ORDERS Performing Organization Address City/State/ZIP Code Phon e Number POWERCHART HX-C trach Amp Src (09/18/2012 2:33 PM SUBSTATION WIREMAN) athologist Signature HXC trach Amp urine POWERCHART [facility] Specimen (Source) Anatomical Collection Method Collection Time Re ceived Time Location / / Volume Laterality 09/18/2012 2:33 PM SUBSTATION WIREMAN Brenna Carig APRN, C.N.P., D.N.P. LAB HISTORICAL ORDERS Performing Organization Address City/State/ZIP Code Phon e Number POWERCHART documented in this encounter Visit Diagnoses Not on filedocumented in this encounter
--- OUTSIDE RECORDS SUMMARY | 2022-05-19 14:45 | XMS_ITS | Encounter Summary ---
:[address] [facility] Address [address] [place] [address] Care Team Providers Name Role Phone Unavailable Primary Care Provider Unavailable Encounter Details Date Type Department Care Team Description 12/23/2013 Hospital Encounter HX [facility] Nayeli Campos M.D. [id number] [place] [phone] (Wo rk) Social History Tobacco Use Types Packs/Day Years Used Date Smoking Tobacco: Never Assessed Sex Assigned at Date Recorded Not on file documented as of this encounter Last Filed Vital Signs Vital Sign Reading Time Taken Comments Blood Pressure 107/70 12/23/2013 7:00 AM CDT Pulse 121 12/23/2013 7:00 AM CDT Temperature - - Respiratory Rate 16 12/23/2013 7:00 AM CDT Oxygen Saturation - - Inhaled Oxygen Concentration - - Weight 79.6 kg (175 lb 7.8 oz) 12/23/2013 7:00 AM CDT Height - - Body Mass Index 28.89 09/23/2013 10:38 AM TRACK LABORER documented in this encounter Progress Notes Nayeli Koenig M.D. - 12/23/2013 6:50 AM CDT [id number] CHIEF COMPLAINT/REASON FOR VISIT Sore throat. HISTORY OF PRESENT ILLNESS Aris is a 23-year-old female who is approximately 18 weeks who has had a sore throat, runny nose, and cough since yesterday. The sore throat is the worst and she wanted to make sure she did not have strep throat. She denies any headaches, fevers, shortness of breath, nausea or vomiting. She also has no sick contacts. She has tried a cough drops but nothing else. She is having difficulty eating but has been drinking okay. She states that her urination is normal. She has no other concerns. MEDICATIONS Reconciled. No new medicines. ALLERGIES No known drug allergies. SYSTEMS REVIEW As per history of present illness. VITAL SIGNS Temperature 36.5. Pulse is 121 beats per minute. Respiratory rate is 16 breaths per minute. Blood pressure is 107/70. Oxygen saturation is 100% on room air. Weight is 79.6 kg. PHYSICAL EXAMINATION GENERAL: Patient is alert and oriented in no acute distress. HEENT: Tympanic membranes are clear bilaterally. Nasal mucosa is mildly erythematous. Oral mucosa ismoist. There is minimal oropharyngeal erythema. Tonsils are approximately 1+ also with minimal erythema. NECK: Neck is supple. No lymphadenopathy. CARDIOVASCULAR: Regular rate and rhythm. Normal S1 and S2. No murmurs, rubs or gallops. LUNGS: Clear to auscultation bilaterally. EXTREMITIES: No pedal edema. IMPRESSION/REPORT/PLAN Sore throat. Rapid strep screen was negative today. We discussed that we will send it for culture, but most likely this infection is viral. We discussed symptomatic therapy that she can do with . We also discussed that her heart rate is up a little bit today which can occur with infection, and she does need to let us know if she feels like things are getting worse. Her next appointment with Dr. Mendes in Obstetrics is January 02. Patient Education Ready to learn No apparent learning barriers were identified Learning preferences include listening Explained diagnosis and treatment plan Patient/Child/Caregiver expressed understanding of the content Nayeli Washington M.D./[facility] Electronically Signed By: NAYELI DICKERSON MD On: 01/04/2014 08:50 PM Modified by and Electronically Signed by: NAYELI DICKERSON MD On: 01/04/2014 08:50 PM Source: [facility] MHSDOLBEYNONRADSYS Document Id: [id number] documented in this encounter Miscellaneous Notes Miscellaneous - Nayeli Koenig M.D. - 12/23/2013 7:30 AM CDT Ambulatory Patient Summary [facility] [address] [facility] [place] [id number] Visit Information Name: ARIS LEOS [facility] Number: [id number] Current Date: 12/23/2013 07:30:58 Physicians Attending Provider: NAYELI DICKERSON MD Primary Care Provider: OFELIA RICARDO RN, LITHOGRAPHIC PHOTOGRAPHER APPRENTICE ARIS LEOS has been given the following [...] Take Indications/Special Instructions/Comments/Notes for Patient Medication Changes/Routing multivitamin, ( Multivitamins with Vitamin B Complex, Vitamin C, Minerals and L-Methylfolate oral capsule) 1 cap, Oral, once a day Stop Taking the Following Medications: Medication list as of 12-23-13 07:30 Attention: If you have any medications at [...] appointment detail needed. Your Goals/Additional instructions: Source: [facility] POWERCHART Document Id: [id number] Miscellaneous - Nayeli Koenig M.D. - 12/23/2013 7:30 AM CDT Ambulatory Discharge Medication List [facility] [address] [facility] [place] [phone] Visit Information Name: ARIS LEOS [facility] Number: [id number] Visit Date: 12/23/2013 07:30:57 Attending Provider: NAYELI DICKERSON MD Primary Care Provider: OFELIA RICARDO RN, LITHOGRAPHIC PHOTOGRAPHER APPRENTICE ARIS LEOS has been given the following list of medications: Your Medications It is important to take your medications as directed. Use a pill box or chart to help remind you to take your medications. Please let your doctor or nurse know if you have problems taking your medications. Medication/Strength How to Take Indications/Special Instructions/Comments/Notes for Patient Medication Changes/Routing multivitamin, ( Multivitamins with Vitamin B Complex, Vitamin C, Minerals and L-Methylfolate oral capsule) 1 cap, Oral, once a day Stop Taking the Following Medications: Medication list as of 12-23-13 07:30 Attention: If you have any medications at home that are not on this list, DO NOT take them until youcontact your provider for clarification. Give a copy of your medication list to your primary care provider. Update your medication list any time medications or doses are changed and carry your medication list at all times in case of emergency. Additional Information: Source: [facility] POWERCHART Document Id: [id number] Miscellaneous - Hardik Galvan, L.P.N. - 12/23/2013 7:00 AM CDT Adult Seafood Service Team Member Intake/History Adult Seafood Service Team Member Intake/History Entered On: 12/23/2013 7:06 CDT Performed On: 12/23/2013 7:00 CDT by HARDIK GALVAN GLASS WASHER AND CARRIER, RT Intake Chief Complaint : Concerned about sore throat since yesterday. [address] Cinthya Rogers for OB care. Temperature Core : 36.5 DegC(Converted to: 97.7 DegF) Peripheral Pulse Rate : 121 /min (HI) Respiratory Rate : 16 /min Systolic Blood Pressure : 107 mmHg Diastolic Blood Pressure : 70 mmHg NIBP Mean : 82 mmHg BP Location : Left upper extremity Blood Pressure Cuff Size : Regular SpO2 : 100 % Oxygen Therapy : Room air Actual Weight : 79.6 kg(Converted to: 175 lb 8 oz) Weight Source : Standing scale Dosing Weight Clinic : 79.6 kg HARDIK GALVAN LPN, RT 12/23/2013 7:00 CDT General Info Information Given By : Patient Preferred Communication Mode : Verbal Languages : Chinese HARDIK GALVAN LPN, 12/23/2013 7:00 CDT Subjective Pain Symptoms : Yes HARDIK GALVAN LPN, 12/23/2013 7:00 CDT Pain Pain Assessment Grid Pain 1 Location : Throat Laterality : Bilateral HARDIK GALVAN LPN, 12/23/2013 7:00 CDT Dependent Habits Tobacco Use/Currently Using : No Exposure to Tobacco Smoke : Care provider denies smoking in home Smoking Status : Current every day smoker HARDIK GALVAN LPN, RT - 12/23/2013 7:00 CDT Tobacco Use Grid Type : Cigarettes Cigarette Use Packs/Day : 0.5 Last Use : 09-20-13 HARDIK GALVAN LPN, 12/23/2013 7:00 CDT Caffeine Use Grid Caffeine Use : None Last Use : 09-20-13 HARDIK GALVAN LPN, 12/23/2013 7:00 CDT Recreational Drug Use Grid Drug Use : None HARDIK GALVAN LPN, 12/23/2013 7:00 CDT [facility] Document Id: [id number] CDT!43 documented in this encounter Plan of Treatment Not on filedocumented as of this encounter Procedures Procedure Name Priority Date/Time Associated Diagnosis Comme nts RAPID STREP A Routine 12/23/2013 7:13 AM Results for this SCREEN CDT procedure are i n the results section. RAPID STREP A Routine 12/23/2013 7:13 AM Results for this SCREEN CDT procedure are i n the results section. documented in this encounter Results Rapid Strep A Screen (12/23/2013 7:13 AM CDT) [facility] [employer] Method Time Signature HXRapid Strep POWERCHART Confirmation HXPre Negative for POWERCHART Group A Strep by culture. HXFinal Negative for POWERCHART Group A Strep by culture. Specimen Anatomical Collection Method Collection Time Receive d Time (Source) Location / / Volume Laterality Throat 12/23/2013 7:13 AM 4 7:13 CDT AM CDT Nayeli Jarrett M.D. LAB MICROBIOLOGY - GENE RAL ORDERABLES Performing Organization Address City/[facility] Code Phon e Number POWERCHART Rapid Strep A Screen (12/23/2013 7:13 AM CDT) [facility] [employer] Method Time Signature HXStrep A POWERCHART Screen Rapid HXFinal Negative for POWERCHART Strep Group A by rapid screen. HXFinal Culture POWERCHART confirmation to follow. Specimen (Source) Anatomical Collection Method Collection Time Re ceived Time Location / / Volume Laterality Throat 12/23/2013 7:13 AM CDT Nayeli Jarrett M.D. LAB MICROBIOLOGY - GENE RAL ORDERABLES Performing Organization Address City/State/ZIP Code Phon e Number POWERCHART documented in this encounter Visit Diagnoses Not on filedocumented in this encounter
--- OUTSIDE RECORDS SUMMARY | 2022-05-19 14:45 | XMS_ITS | Encounter Summary ---
:1990 Author Organization [facility] Address [address] [place] [address] Care Team Providers Name Role Phone Unavailable Primary Care Provider Unavailable Encounter Details Date Type Department Care Team Description 04/01/[address] [facility] Anne-Marie Ricardo APRN, C.N.P., D. N.P. [address] [place] [phone] (Wo rk) Social History Tobacco Use Types Packs/Day Years Used Date Smoking Tobacco: Never Assessed Sex Assigned at Date Recorded Not on file documented as of this encounter Last Filed Vital Signs Vital Sign Reading Time Taken Comments Blood Pressure 102/70 04/01/2015 12:31 PM CDT Pulse 70 04/01/2015 12:31 PM CDT Temperature - - Respiratory Rate 16 04/01/2015 12:31 PM CDT Oxygen Saturation - - Inhaled Oxygen Concentration - - Weight - - Height 166 cm (5' 5.35) 04/01/2015 12:31 PM CDT Body Mass Index - - documented in this encounter Progress Notes Anne-Marie Ricardo APRN, C.N.P. - 04/01/2015 12:25 PM CDT [id number] CHIEF COMPLAINT/REASON FOR VISIT Cough. HISTORY OF PRESENT ILLNESS Aris is a 24-year-old female who comes in today for a cough that she has had for 3 weeks. She reports it being a dry cough much worse when she lays down. She has tried cold and flu symptoms and DayQuil without any improvement in her symptoms. She states that she has runny nose and congestion. Deniesany particular headaches or facial pain. Her cough is so severe and will sometimes take her breath away. She, otherwise, does not feel ill. She does not note any particular shortness of breath. MEDICATIONS New reconciled. Keyla-D 2 times daily. Tessalon Perles 3 times daily for 14 days. ALLERGIES No known drug allergies. SYSTEMS REVIEW Patient denies any fevers or chills. No particular facial pain or headaches. No chest pain or shortness of breath. No changes in bowel or bladder habits. SOCIAL HISTORY Patient is a non-tobacco user. VITAL SIGNS Please see the EMR for those details dated today's date. PHYSICAL EXAMINATION GENERAL: Patient appears nondistressed. SKIN: Well hydrated. HEENT: Head is normocephalic. There is no particular sinus tenderness noted. Ears: She does have fluid noted behind her TMs bilaterally, but nonerythemic. Nose with erythemic boggy turbinates. Throat: No particular postnasal drainage. Slightly erythemic. Head with no sinus tenderness to palpation. NECK: Lymph with no cervical or supraclavicular lymphadenopathy. HEART: With a regular rate and rhythm. LUNGS: Clear to auscultation. IMPRESSION/REPORT/PLAN 1. Bronchospastic cough. 2. Rhinorrhea. PLAN: We will use Keyla-D on 2 times daily for the next 14 days as well as Tessalon Perles. She will report if no improvement or any worsening symptoms. If she has worsening symptoms that do produce a productive cough, it would be reasonable to place patient on an antibiotic such as amoxicillin 875,2 times daily for 10 days. Patient agrees. She will call in if her symptoms are worsening. Elkin GarciaNAniaPAnia/radha Electronically Signed By: ANNE-MARIE RICARDO RN, REQUIREMENTS ENGINEER On: 04/08/2015 08:24 AM Source: [facility] MHSDOLBEYNED Document Id: [id number] documented in this encounter Miscellaneous Notes Miscellaneous - Anne-Marie Ricardo APRN, C.N.P. - 04/01/2015 12:56 PM CDT Ambulatory Patient Summary [address] [facility] [place] [id number] Visit Information Name: ARIS LEOS [facility] Number: [id number] Current Date: 04/01/2015 12:56:08 Physicians Attending Provider: ANNE-MARIE RICARDO RN, THERESA Primary Care Provider: ANNE-MARIE RICARDO RN, REQUIREMENTS ENGINEER ARIS LEOS has been given the following [...] Take Indications/Special Instructions/Comments/Notes for Patient Medication Changes/Routing benzonatate (Tessalon Perles 100 mg oral capsule) 1 cap, Oral, three times a day x 14 day(s) New Routed to [address] [place] [address] fexofenadine-pseudoephedrine (Keyla-D 12 Hour 60 mg-120 mg oral tablet, extended release) 1 Tablet(s), Oral, every 12 hours x 14 day(s) New Routed to Printer Stop Taking the Following Medications: Medication list as of 04-01-15 12:56 Attention: If you have any medications at [...] Signed By: ANNE-MARIE RICARDO RN, THERESA Signed On:01-APR-2015 12:56:03 Your Allergies & Intolerances Substance Reaction Symptoms Category Comments No Known Allergies Drug Your Problem List Problem Status Onset Comments Tinea pedis Active 10/02/2010 Iron deficiency anemia Active 06/28/2010 Patellar Tendinitis L Active 10/21/2014 Cough Bronchospastic Active Your Upcoming Appointments Date Time Location [...] if you dont have one. Go to [email or web address] and click on Create Your Account. Then, follow the directions to complete the online form. Youll be asked for your [facility] number which you can find at the top of this document. Your Goals/Additional instructions: Source: [facility] POWERCHART Document Id: [id number] Miscellaneous - Anne-Marie Ricardo APRN, C.N.P. - 04/01/2015 12:56 PM CDT Ambulatory Discharge Medication List [address] [id number] Visit Information Name: SANDRA LEOSLEY LELIA [facility] Number: [id number] Visit Date: 04/01/2015 12:56:07 Attending Provider: ANNE-MARIE RICARDO RN, REQUIREMENTS ENGINEER Primary Care Provider: ANNE-MARIE RICARDO RN, REQUIREMENTS ENGINEER DAFNEARIS has been given the following list of medications: Your Medications It is important to take your medications as directed. Use a pill box or chart to help remind you to take your medications. Please let your doctor or nurse know if you have problems taking your medications. Medication/Strength How to Take Indications/Special Instructions/Comments/Notes for Patient Medication Changes/Routing benzonatate (Tessalon Perles 100 mg oral capsule) 1 cap, Oral, three times a day x 14 day(s) [facility] [address] [address] fexofenadine-pseudoephedrine (Keyla-D 12 Hour 60 mg-120 mg oral tablet, extended release) 1 Tablet(s), Oral, every 12 hours x 14 day(s) New Routed to Printer Stop Taking the Following Medications: Medication list as of 04-01-15 12:56 Attention: If you have any medications at [...] emergency. Electronically Signed By: ANNE-MARIE RICARDO RN, REQUIREMENTS ENGINEER Signed On:01-APR-2015 12:56:03 Additional Information: Source: [facility] POWERCHART Document Id: [id number] Miscellaneous - Dewey Duong LAniaPAniaNAnia - 04/01/2015 12:31 PM CDT Adult Shactor Intake/History Adult Shactor Intake/History Entered On: 04/01/2015 12:33 CDT Performed On: 04/01/2015 12:31 CDT by DEWEY DUONG LPN Intake Temperature Core : 36.3 DegC(Converted to: 97.3 DegF) (LOW) Peripheral Pulse Rate : 70 /min Respiratory Rate : 16 /min Heart Rhythm : Regular Systolic Blood Pressure : 102 mmHg Diastolic Blood Pressure : 70 mmHg NIBP Mean : 81 mmHg BP Location : Left upper extremity Blood Pressure Cuff Size : Large SpO2 : 98 % Oxygen Therapy : Room air DEWEY DUONG LPN - 04/01/2015 12:34 CDT Chief Complaint : Uncontollable dry cough, runny nose, congestion Onset of Symptoms : 3wks Height : 166 cm(Converted to: 5 ft 5 inch(es), 65 inch(es)) DEWEY DUONG LPN - 04/01/2015 12:31 CDT General Info Languages : Moroccan Is Patient Female and 13-50 no hysterectomy : Yes Status : Patient denies Are you ? : No DEWEY DUONG LPN - 04/01/2015 12:31 CDT Subjective Pain Symptoms : No DEWEY DUONG LPN - 04/01/2015 12:31 CDT Dependent Habits Tobacco Use/Currently Using : Yes Tobacco Use/Advised to Quit : Yes Exposure to Tobacco Smoke : Care provider denies smoking in home Smoking Status : Current every day smoker DEWEY DUONG LPN - 04/01/2015 12:31 CDT Tobacco Use Grid Type : Cigarettes Cigarette Use Packs/Day : 0.5 DEWEY DUONG LPN - 04/01/2015 12:31 CDT Alcohol Use : No DEWEY DUONG LPN - 04/01/2015 12:31 CDT Caffeine Use Grid Caffeine Use : None Last Use : 09-20-13 DEWEY DUONG LPN - 04/01/2015 12:31 CDT Recreational Drug Use Grid Drug Use : None DEWEY DUONG LPN - 04/01/2015 12:31 CDT [facility] Document Id: [id number] CDT!13 documented in this encounter Plan of Treatment Not on filedocumented as of this encounter Visit Diagnoses Not on filedocumented in this encounter
--- OUTSIDE RECORDS SUMMARY | 2022-05-19 14:46 | XMS_ITS | Encounter Summary ---
:1990 Author Organization [facility] Address [address] [place] [address] Care Team Providers Name Role Phone Unavailable Primary Care Provider Unavailable Encounter Details Date Type Department Care Team Description 10/27/2011 Hospital Encounter [facility]X [facility] Brenna Craig, GRIS, C.N.P., D. N.P. [address] [place] [address] (Wo rk) Social History Tobacco Use Types Packs/Day Years Used Date Smoking Tobacco: Never Assessed Sex Assigned at Date Recorded Not on file documented as of this encounter Last Filed Vital Signs Vital Sign Reading Time Taken Comments Blood Pressure 100/70 10/27/2011 1:55 PM LVN LPN Pulse 120 10/27/2011 1:55 PM LVN LPN Temperature - - Respiratory Rate 20 10/27/2011 1:40 PM LVN LPN Oxygen Saturation - - Inhaled Oxygen Concentration - - Weight 74.8 kg (164 lb 14.5 oz) 10/27/2011 1:40 PM LVN LPN Height - - Body Mass Index - - documented in this encounter Progress Notes Brenna Craig, D.N.P., C.N.P. - 10/27/2011 12:00 AM CST [id number] CHIEF COMPLAINT/REASON FOR VISIT Nasal congestion. HISTORY OF PRESENT ILLNESS The patient is a 21-year-old female who presents to the clinic today with some nasal congestion that has been present now for the past 4-5 days duration. She does report that today she is feeling a little bit better. She reports that she is not currently taking anything [id number] to help with the symptoms and also reports that she is due for her Depo-Provera today. She otherwise denies shortness of breath or difficulty breathing and denies having any other further concerns or issues at this time. PAST MEDICAL/SURGICAL HISTORY Past medical, surgical, family history reviewed. Please see chart. CURRENT MEDICATIONS Reviewed. Please see chart. ALLERGIES Reviewed. Please see chart. PHYSICAL EXAMINATION OBJECTIVE: The patient is alert and oriented x3. HEAD: Normocephalic, atraumatic. PUPILS: Pupils equal, round, and reactive to light and accommodation OROPHARYNX: Blanchard and moist. TM's: Bilateral tympanic membranes are clear. Bony landmarks noted and within normal limits. NARES: Patent. No erythema or drainage noted. NECK: No anterior or posterior lymphadenopathy noted. HEART: Regular. S1, S2. No murmurs, rubs or gallops noted. LUNGS: Clear to auscultation. No prolonged expiratory phases, wheezing, rales or rhonchi noted. SKIN: Without unusual rashes or suspicious lesions CLINIC COURSE OF TREATMENT After obtaining the patient's consent, the patient was given her Depo shot from the nurse (please see nurse's notes). The patient tolerated it well. No reactions noted. IMPRESSION/REPORT/PLAN 1. Upper respiratory infection. 2. Contraceptive management. PLAN I discussed the findings at length with the patient. I advised that most likely her symptoms are of viral etiology and advised that her symptoms should improve in the next couple of days. I advised if her symptoms worsen, follow-up would be warranted. I recommended humidified air and encouraging fluid intake. The patient stated an understanding of this plan. She otherwise denied having any other further concerns or issues. The patient ambulated out of the clinic in no acute distress. Jame JiangNJason, F.N.P. / Electronically Signed By: BRENNA CRAIG DNP, FNP On: 10/31/2011 05:13 PM Source: [facility] JEFERSONSDOLBESARAH Document Id: [id number] LPN documented in this encounter Procedure Notes Jabier Castaneda L.P.NAnia - 10/27/2011 1:55 PM CST Depo-Provera Administration Depo-Provera Administration Entered On: 10/27/2011 13:56 LVN LPN Performed On: 10/27/2011 13:55 LVN LPN by JABIER CASTANEDA LPN Depo-Provera Administration Annual Exam in the Past 12 Months : Yes Last Depo-Provera Given : 08/09/2011 LVN LPN Return appointment : 01/10/2012 CDT Needs test : No JABIER CASTANEDA LPN - 10/27/2011 13:55 LVN LPN Vitals/Ht/Wt Peripheral Pulse Rate : 120/min (HI) Systolic Blood Pressure : 100mmHg Diastolic Blood Pressure : 70mmHg NIBP Mean : 80mmHg BP Location : Left upper extremity Blood Pressure Cuff Size : Regular JABIER CASTANEDA LPN - 10/27/2011 13:55 LVN LPN Source: [facility] POWERCHART Document Id: [id number] LVN LPN!13 LPN documented in this encounter Miscellaneous Notes Miscellaneous - Brenna Craig, JameN.P., C.N.P. - 10/27/2011 1:57 PM LVN LPN Ambulatory Patient Summary [address] [place] [address] Visit Information Name: ARIS LEOS Current Date: 10/27/2011 13:57:44 Primary Care Provider: OFELIA RICARDO RN, HEEL SEAT TRIMMER Your Medications Here is a list of your medications. It is important to take your medications as directed. Use a pillbox or chart to help remind you to take your medications. Please let your doctor or nurse know if you have problems taking your medications. Medication/Strength Dose Route Frequency Indications/Special Instructions/Comments medroxyPROGESTERone (Depo-Provera Contraceptive 150 mg/ml intramuscular suspension) 150 mg Intramuscular every 3 months Your Allergies & Intolerances Substance Reaction Symptoms Category Comments NKA Drug Your Problem List Problem Status Onset Comments Tinea pedis Active 10/02/2010 Iron deficiency anemia Active 06/28/2010 Your Recommendations We want to make sure you get the tests, immunizations, and guidance you need to stay healthy. Here is a customized list of recommendations, based on information we have in your medical record. Your doctor may have additional recommendations for you, based on your personal medical history and risk factors. You can help us by calling us to make an appointment when you are due for your tests. Additional information regarding recommendations: Test/Treatment Last Done Next Due Additional Information Screening Chlamydia every 1 year Females Age 16-24 01/27/2011 01/27/2012 Health Assessment every 1 year 10/27/2011 Vaccine: Tetanus every 10 years 04/19/2005 04/17/2015 Immunization to help prevent you from getting the serious disease Tetanus (Lockjaw). Your Upcoming Appointments Date Time Location Reason Provider No Appointments found Your Goals/Additional instructions: Source: [facility] [employer] Document Id: [id number] LPN Miscellaneous - Brenna Craig, Bonnie.N.P., C.N.P. - 10/27/2011 1:57 PM LVN LPN Ambulatory Depart Summary [address] [address] Visit Information Name: DAFNEARIS Current Date: 10/27/2011 13:57:43 Attending Provider: BRENNA CRAIG DNP, STAFFING EXECUTIVE Primary Care Provider: OFELIA RICARDO RN, HEEL SEAT TRIMMER DAFNE ARIS LELIA has been given the following list of medications: Your Medications It is important to take your medications as directed. Use a pill box or chart to help remind you to take your medications. Please let your doctor or nurse know if you have problems taking your medications. Medication/Strength Dose Route Frequency Indications/Special Instructions/Comments medroxyPROGESTERone (Depo-Provera Contraceptive 150 mg/ml intramuscular suspension) 150 mg Intramuscular every 3 months Additional Information: Yes - Current list of reconciled medications is provided and explained to the patient and/or family, guardian/caregiver. Source: [facility] Document Id: [id number] LPN Miscellaneous - Jabier Castaneda L.P.N. - 10/27/2011 1:40 PM CST Adult Geological Manager Intake/History Adult Geological Manager Intake/History Entered On: 10/27/2011 13:43 LVN LPN Performed On: 10/27/2011 13:40 LVN LPN by JABIER CASTANEDA LPN Intake Chief Complaint : sun. night, congestion, sore throat and felt ill. Today no sore throat but still has sinus congestion and cough. also here for Depo shot. Temperature Core : 37.0C(Converted to: 98.6DegF) Peripheral Pulse Rate : 120/min (HI) Respiratory Rate : 20/min Heart Rhythm : Irregular Systolic Blood Pressure : 100mmHg Diastolic Blood Pressure : 70mmHg NIBP Mean : 80mmHg BP Location : Left upper extremity Blood Pressure Cuff Size : Regular Actual Weight : 74.8kg(Converted to: 164lb 14oz) Weight Source : Standing scale Dosing Weight Clinic : 74.80kg JABIER CASTANEDA LPN - 10/27/2011 13:40 LVN LPN Subjective Pain Symptoms : No JABIER CASTANEDA LPN - 10/27/2011 13:40 LVN LPN Dependent Habits Tobacco Use/Currently Using : Yes Exposure to Tobacco Smoke : Patient smokes Smoking Status : Smoker JABIER CASTANEDA LPN - 10/27/2011 13:40 LVN LPN Tobacco Use Grid Type : Cigarettes Cigarette Use Packs/Day : 0.5 Last Use : 10 min ago JABIER CASTANEDA LPN - 10/27/2011 13:40 LVN LPN Caffeine Use Grid Caffeine Use : Current Type : Soft drinks Frequency : Weekly Amount : 2 cans Last Use : 11am JABIER CASTANEDA LPN - 10/27/2011 13:40 LVN LPN Recreational Drug Use Grid Drug Use : None JABIER CASTANEDA LPN - 10/27/2011 13:40 LVN LPN Allergy Allergies (Active) NKA Estimated Onset Date: Unspecified ; Created By: CATHLEEN KURTZ LPN; Reaction Status: Active ;Category: Drug ; Substance: NKA ; Type: Allergy ; Updated By: CATHLEEN KURTZ LPN; Reviewed Date: 10/27/2011 13:39 LVN LPN Source: [facility] POWERCHART Document Id: [id number] LVN LPN!36 LPN documented in this encounter Plan of Treatment Not on filedocumented as of this encounter Visit Diagnoses Not on filedocumented in this encounter
--- OUTSIDE RECORDS SUMMARY | 2022-05-19 14:46 | XMS_ITS | Encounter Summary ---
:1990 Author Organization [facility] Address [address] [place] [address] Care Team Providers Name Role Phone Unavailable Primary Care Provider Unavailable Encounter Details Date Type Department Care Team Description 01/27/2011 Hospital Encounter HX [facility] Deedee Bobby, GRIS, C.N.P., D.N.P. [address], [place] [phone] (Wo rk) Social History Tobacco Use Types Packs/Day Years Used Date Smoking Tobacco: Never Assessed Sex Assigned at Date Recorded Not on file documented as of this encounter Plan of Treatment Not on filedocumented as of this encounter Visit Diagnoses Not on filedocumented in this encounter
--- OUTSIDE RECORDS SUMMARY | 2022-05-19 14:46 | XMS_ITS | Encounter Summary ---
:1990 Author Organization [facility] Address [address] [place] [address] Care Team Providers Name Role Phone Unavailable Primary Care Provider Unavailable Encounter Details Date Type Department Care Team Description 11/05/2010 Hospital Encounter HX [facility] INPT/OBSRV Carol Mendes M.D. Social History Tobacco Use Types Packs/Day Years Used Date Smoking Tobacco: Never Assessed Sex Assigned at Date Recorded Not on file documented as of this encounter Plan of Treatment Not on filedocumented as of this encounter Visit Diagnoses Not on filedocumented in this encounter
--- OUTSIDE RECORDS SUMMARY | 2022-05-19 14:46 | XMS_ITS | Encounter Summary ---
:1990 Author Organization [facility] Address [address] [place] [address] Care Team Providers Name Role Phone Unavailable Primary Care Provider Unavailable Encounter Details Date Type Department Care Team Description 07/16/2010 Hospital Encounter H[facility] INPT/OBSRV Akhil Sargent Jr., M.D. [address] [place], [place] [address] (Wo rk) Social History Tobacco Use Types Packs/Day Years Used Date Smoking Tobacco: Never Assessed Sex Assigned at Date Recorded Not on file documented as of this encounter Plan of Treatment Not on filedocumented as of this encounter Visit Diagnoses Not on filedocumented in this encounter
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
--- OUTSIDE RECORDS SUMMARY | 2022-05-19 14:46 | XMS_ITS | Encounter Summary ---
:1990 Author Organization [facility] Address [address] [place] [address] Care Team Providers Name Role Phone Unavailable Primary Care Provider Unavailable Encounter Details Date Type Department Care Team Description 08/09/2011 Hospital [facility] Anne-Marie Roland, GRIS, C.N.P., D. N.P. [address] [place] [address] (Wo rk) Social History Tobacco Use Types Packs/Day Years Used Date Smoking Tobacco: Never Assessed Sex Assigned at Date Recorded Not on file documented as of this encounter Procedure Notes Cathleen Massey, L.P.N. - 08/09/2011 3:50 PM CST Depo-Provera Administration Depo-Provera Administration Entered On: 08/09/2011 15:50 AIRCRAFT POWER PLANT ASSEMBLER Performed On: 08/09/2011 15:50 AIRCRAFT POWER PLANT ASSEMBLER by CATHLEEN MASSEY LPN Depo-Provera Administration Annual Exam in the Past 12 Months : Yes Last Depo-Provera Given : 05/10/2011 CDT Needs test : No CATHLEEN MASSEY LPN - 08/09/2011 15:50 AIRCRAFT POWER PLANT ASSEMBLER Source: [facility] POWERCHART Document Id: [id number] AIRCRAFT POWER PLANT ASSEMBLER!5 RAFT POWER PLANT ASSEMBLER documented in this encounter Plan of Treatment Not on filedocumented as of this encounter Visit Diagnoses Not on filedocumented in this encounter
--- OUTSIDE RECORDS SUMMARY | 2022-05-19 14:46 | XMS_ITS | Encounter Summary ---
:1990 [facility] Address [address] [place] [address] Care Team Providers Name Role Phone Unavailable Primary Care Provider Unavailable Encounter Details Date Type Department Care Team Description 02/15/2011 Hospital Encounter [facility] ME Brenna Craig, GRIS, Zulema.N.P., D. N.P. [address] [place] [address] (Wo rk) Social History Tobacco Use Types Packs/Day Years Used Date Smoking Tobacco: Never Assessed Sex Assigned at Date Recorded Not on file documented as of this encounter Progress Notes Brenna Craig, D.N.P., C.N.P. - 02/15/2011 12:00 AM CDT [id number] CHIEF COMPLAINT/REASON FOR VISIT Nausea and diarrhea. HISTORY OF PRESENT ILLNESS The patient is a 20-year-old female who presents to the clinic with her significant other today with a chief complaint having some mild nausea and some diarrhea that started yesterday. Patient reports though she thinks that she has been having some stomach issues for the past month, but reports that more so her symptoms were exacerbated yesterday with increased discomfort. She reports that her pain is a 3 out of 10 when she is at rest and reports on occasion her pain gets to a 4 out of 10 as she describes it more like cramping and achy. She does report that this morning she ate some Captain Crunch, and reports that last night she did have more of a bland diet including toast and chicken noodle soup. She indicates though that she continues drinking caffeinated beverages and reports that she is not taking any iron supplementation per my previous recommendations from her last visit for her iron deficiency anemia. She reports that she has not had any fevers, chills, shortness of breath, difficulty breathing. She reports that she has not had any exposure to any kind of viral or bacterial infections that she is aware of and denies any known exposure to any individuals that have similar symptoms. She also reports that she has not been taking any myqx-wsi-zabntsx medications to help with her symptoms and reports that currently she is up-to-date on her Depo shot. She otherwise denies having any other further concerns or complaints at this time. PAST MEDICAL, SURGICAL, FAMILY HISTORY Reviewed. Please see chart. CURRENT MEDICATIONS Reviewed. Please see chart. ALLERGIES Reviewed. Please see chart. PHYSICAL EXAMINATION OBJECTIVE: Patient is alert/oriented x 3. HEAD: Normocephalic/atraumatic. PUPILS: Pupils equal, round and reactive to light.. OROPHARYNX: [place] and moist. TMs: Bilateral tympanic membranes are clear, bony landmarks noted and WNL. NARES: Patent, no erythema or drainage noted. NECK: No anterior/posterior lymphadenopathy noted. HEART: Regular S1, S2, no murmurs, rubs or gallops noted. LUNGS: Clear to auscultation, no prolonged expiratory phases, wheezing, rales or rhonchi noted. SKIN: Without unusual rashes or suspicious lesions ABDOMEN: Abdomen is soft, bowel sounds are positive in all four quadrants. No hepatosplenomegaly is noted. No rebound, tenderness or rigidity is noted. IMPRESSION/REPORT/PLAN 1. Nausea and diarrhea (most likely gastroenteritis) 2. History of iron deficiency anemia. PLAN: Discussed the findings at length with the patient. Indicated with the patient I would like her to go with more of a BRAT diet including bananas, rice, applesauce and toast though if her symptoms have presently been continuing for the past month we should maybe also consider a lactose-free and a gluten-free diet for at least a 1 to 2-week time frame to see if she had further symptom improvement with this. I reiterated to the patient the important of her taking multivitamin with added iron and/or iron supplementation daily as I reiterated this several times throughout the examination. Advised that if her symptoms worsen or continue, she develops a fever, or more specific starts developing right lower quadrant abdominal pain. Follow-up would be warranted immediately. Patient stated they understand this plan. She denied having any further questions. Patient ambulated out of the clinic in no acute distress. The patient did request a note for excuse from school for appointment time, this was provided to the patient. #1 Patient Education Ready to learn No apparent learning barriers were identified Learning preferences include listening Explained diagnosis and treatment plan Patient expressed understanding of the content Brenna Craig D.N.P., ElkinN.P. /jak Electronically Signed By: BRENNA CRAIG DNP, FNP On: 02/15/2011 04:43 PM [facility] Document Id: [id number] documented in this encounter Miscellaneous Notes Miscellaneous - Brenna Craig D.N.P., C.N.P. - 02/15/2011 11:52 AM CDT Ambulatory Patient Summary [facility] - [address] [address] Visit Information Name: ARIS LEOS Current Date: 02/15/2011 11:51:57 Primary Care Provider: OFELIA RICARDO RN, LICENSE DISTRIBUTOR Your Medications Here is a list of [...] Screening Chlamydia every 1 year Females Age 15-24 01/27/2011 01/27/2012 Vaccine: Tetanus every 10 years 04/19/2005 04/17/2015 Immunization to help prevent you from getting the serious disease Tetanus (Lockjaw). Your Upcoming Appointments Date Time Location Reason Provider No Appointments found Your Goals/Additional instructions: Source: [employer] Document Id: [id number] Miscellaneous - Bernna Craig D.N.Jie., C.N.P. - 02/15/2011 11:51 AM CDT Ambulatory Depart Summary [facility] - [address] [address] Visit Information Name: ARIS LEOS Current Date: 02/15/2011 11:51:57 Primary Care Provider: OFELIA RICARDO RN, LICENSE DISTRIBUTOR ARIS LEOS LELIA has been given the [...] to the patient and/or family, guardian/caregiver. Source: [employer] Document Id: [id number] Miscellaneous - Anastacia, Historical Provider Ser - 02/15/2011 11:05 AM CDT Pediatric Marriage Counselor Minister Intake/History Pediatric Marriage Counselor Minister Intake/History Entered On: 02/15/2011 11:08 CDT Performed On: 02/15/2011 11:05 CDT by FRANCINE MALDONADO LPN Intake Chief Complaint: stomach pains, constant, upper stomach, worse when sitting up Temperature Core: 37.0C(Converted to: 98.6DegF) Peripheral Pulse Rate: 92/min Respiratory Rate: 16/min Systolic Blood Pressure: 102mmHg Diastolic Blood Pressure: 64mmHg NIBP Mean: 77mmHg Actual Weight: 67.700kg(Converted to: 149lb 4oz) Dosing Weight Clinic: 67.70kg FRANCINE MALDONADO LPN - 02/15/2011 11:05 CDT Subjective Pain Symptoms: Yes FRANCINE MALDONADO LPN - 02/15/2011 11:05 CDT Pain Pain Assessment Grid Pain 1 Location: Abdomen Intensity: 4 FRANCINE MALDONADO LPN - 02/15/2011 11:05 CDT Dependent Habits Tobacco Use/Currently Using: Yes Exposure to Tobacco Smoke: Patient smokes FRANCINE MALDONADO LPN - 02/15/2011 11:05 CDT Tobacco Use Grid Type: Cigarettes Cigarette Use Packs/Day: 0.5 Last Use: 10 min ago FRANCNIE MALDONADO LPN - 02/15/2011 11:05 CDT Caffeine Use Grid Caffeine Use: Current Type: Soft drinks Frequency: Weekly Amount: 2 cans Last Use: 11am FRANCINE MALDONADO LPN - 02/15/2011 11:05 CDT Recreational Drug Use Grid Drug Use: None FRANCINE MALDONADO LPN - 02/15/2011 11:05 CDT Allergy Allergies (Active) NKA Estimated Onset Date: Unspecified ; Created By: CATHLEEN KURTZ LPN; Reaction Status: Active ;Category: Drug ; Substance: NKA ; Type: Allergy ; Updated By: CATHLEEN KURTZ LPN; Reviewed Date: 02/15/2011 11:04 CDT Source: [facility] [employer] Document Id: [id number] CDT!36 documented in this encounter Plan of Treatment Not on filedocumented as of this encounter Visit Diagnoses Not on filedocumented in this encounter
--- OUTSIDE RECORDS SUMMARY | 2022-05-19 14:46 | XMS_ITS | Encounter Summary ---
:1990 Author Organization [facility] Address [address] [place] [address] Care Team Providers Name Role Phone Unavailable Primary Care Provider Unavailable Encounter Details Date Type Department Care Team Description 01/05/2011 Hospital Encounter [facility] ME Ofelia Ricardo APRN, C.N.P., D. N.P. [address] [place] [phone] (Wo rk) Social History Tobacco Use Types Packs/Day Years Used Date Smoking Tobacco: Never Assessed Sex Assigned at Date Recorded Not on file documented as of this encounter Progress Notes Ofelia Ricardo APRN, C.N.P. - 01/05/2011 12:00 AM CDT [id number] CHIEF COMPLAINT/REASON FOR VISIT: 1. Is vaginal discharge. HISTORY OF PRESENT ILLNESS 1Ania Fritz is a 20-year-old female who comes in today who is sexually active in a monogamous relationship comes in today with a concern of vaginal discharge with yellow discharge that is odorous, denies any itching or specific burning. She has noticed the symptoms for approximately a week with no worsening symptoms but also no improvement. She denies douching, denies any recent swimming or hot tubs. She does use condoms as well as using her Depo-Provera for control. She denies any sores or lesions. CURRENT MEDICATIONS Please see EMR. New reconciled medication is Flagyl 500 mg by mouth twice daily for the next seven days. ALLERGIES Please see EMR. VITAL SIGNS: Her temperature is 36.9 PHYSICAL EXAMINATION IN GENERAL: Patient appears nondistressed. Vaginal exterior is normal-appearing. No sores or lesions are noted. The anterior cervix is normal-appearing. She had no cervical motion tenderness. There is a thick white odorous discharge that is noted. CRISTI wet prep was performed and noting bacteria, no Trichomonas, no budding and hyphae but positive clue cells were noted. IMPRESSION/REPORT/PLAN 1. Is bacterial vaginosis. PLAN: We will treat with Flagyl 500 mg by mouth twice daily for seven days increasing her fluids and rest. She is to avoid alcohol while on this antibiotic and will report if no improvement or any worsening symptoms. #1 Patient Education Ready to learn No apparent learning barriers were identified Learning preferences include listening Explained diagnosis and treatment plan Patient expressed understanding of the content Ofelia Ricardo N.P. /jak Electronically Signed By: OFELIA RICARDO RN, [facility] On: 01/05/2011 11:52 Source: [facility] Document Id: [id number] documented in this encounter Miscellaneous Notes Miscellaneous - Lesley Ledesma LAniaPAniaNAnia - 01/05/2011 8:12 AM CDT Adult Field Liability Generalist Intake/History Adult Field Liability Generalist Intake/History Entered On: 01/05/2011 8:15 CDT Performed On: 01/05/2011 8:12 CDT by LESLEY GARCIA LPN Intake Chief Complaint: vaginal discharge, odor, denies itching or burning Temperature Core: 36.9C(Converted to: 98.4DegF) Peripheral Pulse Rate: 96/min Respiratory Rate: 16/min Systolic Blood Pressure: 96mmHg Diastolic Blood Pressure: 58mmHg NIBP Mean: 71mmHg BP Location: Left upper extremity Heart Rhythm: Regular Actual Weight: 66.500kg(Converted to: 146lb 10oz) Weight Source: Standing scale Dosing Weight Clinic: 66.50kg LESLEY GARCIA LPN - 01/05/2011 8:12 CDT Subjective Pain Symptoms: No LESLEY GARCIA LPN - 01/05/2011 8:12 CDT Dependent Habits Tobacco Use/Currently Using: Yes Exposure to Tobacco Smoke: Patient smokes JOSE, LESLEY Nicole COMMERCIAL CREDIT OFFICER - 01/05/2011 8:12 CDT Tobacco Use Grid Type: Cigarettes Cigarette Use Packs/Day: 0.5 Last Use: 10 min ago LESLEY GARCIA [facility] - 01/05/2011 8:12 CDT Alcohol Use: No LESLEY GARCAI COMMERCIAL CREDIT OFFICER - 01/05/2011 8:12 CDT Caffeine Use Grid Caffeine Use: Current Type: Soft drinks Frequency: Weekly Amount: 2 cans Last Use: 11am LESLEY GARCIA COMMERCIAL CREDIT OFFICER - 01/05/2011 8:12 CDT Recreational Drug Use Grid Drug Use: None LESLEY GARCIA COMMERCIAL CREDIT OFFICER - 01/05/2011 8:12 CDT Allergies Allergies (Active) NKA Estimated Onset Date: Unspecified ; Created By: CATHLEEN KURTZ LPN; Reaction Status: Active ;Category: Drug ; Substance: NKA ; Type: Allergy ; Updated By: CATHLEEN KURTZ LPN; Reviewed Date: 01/05/2011 8:11 CDT Source: [employer] Document Id: [id number] CDT!35 documented in this encounter Plan of Treatment Not on filedocumented as of this encounter Visit Diagnoses Not on filedocumented in this encounter
--- OUTSIDE RECORDS SUMMARY | 2022-05-19 14:46 | XMS_ITS | Encounter Summary ---
:1990 Author Organization [facility] Address [address] [place] [address] Care Team Providers Name Role Phone Unavailable Primary Care Provider Unavailable Encounter Details Date Type Department Care Team Description 12/16/2010 Hospital Encounter [facility] Brenna Craig, GRIS, C.N.P., D. N.P. [address] [place] [address] (Wo rk) Social History Tobacco Use Types Packs/Day Years Used Date Smoking Tobacco: Never Assessed Sex Assigned at Date Recorded Not on file documented as of this encounter Progress Notes Brenna Craig, D.N.P., C.N.P. - 12/16/2010 12:00 AM CDT [id number] CHIEF COMPLAINT/REASON FOR VISIT Sore throat. HISTORY OF PRESENT ILLNESS The patient is an 20-year-old female that presents to the clinic with her mother today with a chief complaint of a sore throat that has been present now since yesterday. The patient reports that she has also had chills and states that to her knowledge she hasn't been exposed to strep that she is aware of. She otherwise denies having any other further concerns or complaints at this time. CURRENT MEDICATIONS Reviewed. Please see chart. ALLERGIES Reviewed. Please see chart. PAST MEDICAL/SURGICAL HISTORY Reviewed. Please see chart. FAMILY HISTORY Reviewed. Please see chart. PHYSICAL EXAM OBJECTIVE: Patient is alert/oriented x 3. HEAD: Normocephalic/atraumatic. PUPILS: HARITHA. OROPHARYNX: Tonsils bilaterally are a +2 exudate noted. No peritonsillar abscess formation is noted. Uvula is noted to be midline. TMs: Bilateral TMs are clear, bony landmarks noted and WNL. NARES: Patent, no erythema or drainage noted. NECK: Bilateral lymphadenopathy also noted on examination. HEART: Regular S1, S2, no murmurs, rubs or gallops noted. LUNGS: Clear to auscultation, no prolonged expiratory phases, wheezing, rales or rhonchi noted. SKIN: Without unusual rashes or suspicious lesions LABS: Rapid strep was obtained and found to be positive. IMPRESSION/REPORT/PLAN Group A strep pharyngitis. PLAN: Discussed the findings at length with the patient. The patient was given Pen VK 500 milligrams tablets in which he is to take one tablet by mouth three times a day for ten days #30 with no refills. Advised second form of contraceptive therapy is warranted for three weeks duration after starting on antibiotic treatment. Recommended ibuprofen over the counter as directed on package with food in the stomach to help with the discomfort and I also indicated to the patient she can take Vicodin 5/500 mg tablet in which she is to take one to two tablets by mouth every six hours as needed for pain. A quantity of 10 with no refills were given. Patient to follow-up as needed. The patient stated they understand the plan as she denied having any further questions. Patient ambulated out of the clinic in no acute distress. PATIENT EDUCATION: Ready to learn No apparent learning barriers were identified Learning preferences include listening Explained diagnosis and treatment plan Patient/Child/Caregiver expressed understanding of the content Brenna Craig D.N.P., F.N.P. /ash Electronically Signed By: BRENNA CRAIG DNP, FNP On: 12/16/2010 11:54 Source: [facility]OL[facility]YNONRADSYS Document Id: [id number] documented in this encounter Miscellaneous Notes Miscellaneous - Brenna Craig D.N.P., C.N.P. - 12/16/2010 10:06 AM CDT Ambulatory Patient Summary [facility] [address] [place] [address] Visit Information Name: ARIS LEOS Current Date: 12/16/2010 10:06:47 Primary Care Provider: ROWAN GONSALES MD Your Medications Here is a list of your medications. It is important to take your medications as directed. Use a pillbox or chart to help remind you to take your medications. Please let your doctor or nurse know if you have problems taking your medications. Medication/Strength Dose Route Frequency Indications/Special Instructions/Comments hydrocodone-acetaminophen (Vicodin 5 mg-500 mg oral tablet) 1 to 2 tablets Oral every 6 hours as needed for Pain No more than 4,000mg acetaminophen/24hrs penicillin (penicillin V potassium 500 mg oral tablet) 500 mg Oral three times a day terbinafine topical (terbinafine topical 1% gel) See Instructions 1 lc Topical medroxyPROGESTERone (Depo-Provera Contraceptive 150 mg/ml intramuscular suspension) 150 mg Intramuscular every 3 months Your Allergies & Intolerances Substance Reaction Symptoms Category Comments NKA Drug Your Problem List Problem Status Onset Comments Tinea pedis Active Your Recommendations We want to make sure [...] Chlamydia every 1 year Females Age 15-24 12/16/2010 Vaccine: Tetanus every 10 years 04/19/2005 04/17/2015 Immunization to help prevent you from getting the serious disease Tetanus (Lockjaw). Your Upcoming Appointments Date Time Location Reason Provider No Appointments found Your Goals/Additional instructions: Source: [facility] POWERCHART Document Id: [id number] Electronically signed by Anastacia, [facility] Oral Communication Instructor [id number] at 03/05/2017 5:50 PM CDT Miscellaneous - Brenna Craig D.N.P., C.N.P. - 12/16/2010 10:06 AM CDT Ambulatory Depart Summary [facility] [address] [place] [address] Visit Information Name: ARIS LEOS Current Date: 12/16/2010 10:06:46 Primary Care Provider: ROWAN GONSALES MD ARIS LEOS has been given the following list of medications: Your Medications It is important to take your medications as directed. Use a pill box or chart to help remind you to take your medications. Please let your doctor or nurse know if you have problems taking your medications. Medication/Strength Dose Route Frequency Indications/Special Instructions/Comments hydrocodone-acetaminophen (Vicodin 5 mg-500 mg oral tablet) 1 to 2 tablets Oral every 6 hours as needed for Pain No more than 4,000mg acetaminophen/24hrs penicillin (penicillin V potassium 500 mg oral tablet) 500 mg Oral three times a day terbinafine topical (terbinafine topical 1% gel) See Instructions 1 lc Topical medroxyPROGESTERone (Depo-Provera Contraceptive 150 mg/ml intramuscular suspension) 150 mg Intramuscular every 3 months Additional Information: Yes - Current list of reconciled medications is provided and explained to the patient and/or family, guardian/caregiver. Source: [facility] POWERCHART Document Id: [id number] Electronically signed by [facility]astacia [facility] Oral Communication Instructor [id number] at 03/05/2017 5:50 PM CDT Miscellaneous - Lesley Ledesma, L.P.N. - 12/16/2010 9:26 AM CDT Adult Scrip Clerk Intake/History Adult Scrip Clerk Intake/History Entered On: 12/16/2010 9:29 CDT Performed On: 12/16/2010 9:26 CDT by LESLEY GARCIA PNEUMATIC DRUM SANDER Intake Chief Complaint: cold since yesterday sore throat chills Temperature Core: 37.1C(Converted to: 98.8DegF) Peripheral Pulse Rate: 102/min (HI) Respiratory Rate: 14/min Systolic Blood Pressure: 110mmHg Diastolic Blood Pressure: 64mmHg NIBP Mean: 79mmHg BP Location: Left upper extremity Heart Rhythm: Regular Actual Weight: 65.400kg(Converted to: 144lb 3oz) Weight Source: Standing scale Dosing Weight Clinic: 65.40kg JOSE, LESLEY Nicole [facility] - 12/16/2010 9:26 CDT Subjective Pain Symptoms: Yes JOSE LESLEY Nicole PNEUMATIC DRUM SANDER - 12/16/2010 9:26 CDT Pain Pain Assessment Grid Pain 1 Location: Throat Intensity: 8 JOSE, LESLEY Nicole [facility] - 12/16/2010 9:26 CDT Dependent Habits Tobacco Use/Currently Using: Yes Exposure to Tobacco Smoke: Patient smokes JOSE LESLEY Nicole [facility] - 12/16/2010 9:26 CDT Tobacco Use Grid Type: Cigarettes Cigarette Use Packs/Day: 0.5 Last Use: 10 min ago LESLEY GARCIA [facility] - 12/16/2010 9:26 CDT Alcohol Use: No LESLEY GARCIA [facility] - 12/16/2010 9:26 CDT Caffeine Use Grid Caffeine Use: Current Type: Soft drinks Frequency: Weekly Amount: 2 cans Last Use: 11am LESLEY GARCIA [facility] - 12/16/2010 9:26 CDT Recreational Drug Use Grid Drug Use: None LESLEY GARCIA [facility] - 12/16/2010 9:26 CDT Allergies Allergies (Active) NKA Estimated Onset Date: Unspecified ; Created By: CATHLEEN KURTZ LPN; Reaction Status: Active ;Category: Drug ; Substance: NKA ; Type: Allergy ; Updated By: CATHLEEN KURTZ LPN; Reviewed Date: 12/16/2010 9:25 CDT [facility] Document Id: [id number] CDT!40 documented in this encounter Plan of Treatment Not on filedocumented as of this encounter Visit Diagnoses Not on filedocumented in this encounter
--- OUTSIDE RECORDS SUMMARY | 2022-05-19 14:46 | XMS_ITS | Encounter Summary ---
:1990 Author Organization [facility] Address [address] [place] [address] Care Team Providers Name Role Phone Unavailable Primary Care Provider Unavailable Encounter Details Date Type Department Care Team Description 05/10/2011 Hospital Encounter H[facility] ME Deedee Bobby, GRIS, C.N.P., D. N.P. [address] [place] [address] (Wo rk) Social History Tobacco Use Types Packs/Day Years Used Date Smoking Tobacco: Never Assessed Sex Assigned at Date Recorded Not on file documented as of this encounter Procedure Notes Conversion, Historical Provider Ser - 05/10/2011 10:01 AM CDT Depo-Provera Administration Depo-Provera Administration Entered On: 05/10/2011 10:01 CDT Performed On: 05/10/2011 10:01 CDT by FRANCINE MALDONADO LPN Depo-Provera Administration Needs test: Yes Urine Test: Negative FRANCINE MALDONADO LPN - 05/10/2011 10:01 CDT Vitals/Ht/Wt Systolic Blood Pressure: 102mmHg Diastolic Blood Pressure: 64mmHg NIBP Mean: 77mmHg FRANCINE MALDONADO LPN - 05/10/2011 10:01 CDT Source: [facility] POWERCHART Document Id: [id number] CDT!5 documented in this encounter Plan of Treatment Not on filedocumented as of this encounter Visit Diagnoses Not on filedocumented in this encounter
--- OUTSIDE RECORDS SUMMARY | 2022-05-19 14:46 | XMS_ITS | Encounter Summary ---
:1990 Author Organization [facility] Address [address] [place] [address] Care Team Providers Name Role Phone Unavailable Primary Care Provider Unavailable Encounter Details Date Type Department Care Team Description 01/27/2011 Hospital Encounter [facility] Anne-Marie Roland, GRIS, C.N.P., D. N.P. [address] [place] [address] (Wo rk) Social History Tobacco Use Types Packs/Day Years Used Date Smoking Tobacco: Never Assessed Sex Assigned at Date Recorded Not on file documented as of this encounter Procedure Notes Kevin Lugo - 01/27/2011 4:20 PM CDT Depo-Provera Administration Depo-Provera Administration Entered On: 01/27/2011 16:24 CDT Performed On: 01/27/2011 16:20 CDT by KEVIN LUGO RN Depo-Provera Administration Systolic Blood Pressure: 100mmHg Diastolic Blood Pressure: 60mmHg BP Reading Side: Right upper extremity Dosing Weight: 68.300kg Last Depo-Provera Given: 11/05/2010 HEEL FINISHER Needs test: No KEVIN LUGO RN - 01/27/2011 16:20 CDT Source: [facility] POWERCHART Document Id: [id number] CDT!8 documented in this encounter Plan of Treatment Not on filedocumented as of this encounter Visit Diagnoses Not on filedocumented in this encounter
--- OUTSIDE RECORDS SUMMARY | 2022-05-19 14:46 | XMS_ITS | Encounter Summary ---
:1990 Author Organization [facility] Address [address] [place] [address] Care Team Providers Name Role Phone Unavailable Primary Care Provider Unavailable Encounter Details Date Type Department Care Team Description 01/20/2011 Hospital Encounter HX [facility] Brenna Craig, GRIS, Zulema.N.P., D. N.P. [address] [place] [address] (Wo rk) Social History Tobacco Use Types Packs/Day Years Used Date Smoking Tobacco: Never Assessed Sex Assigned at Date Recorded Not on file documented as of this encounter Progress Notes Brenna Craig, D.N.P., C.N.P. - 01/20/2011 12:00 AM CDT [id number] CHIEF COMPLAINT/REASON FOR VISIT Headache. HISTORY OF PRESENT ILLNESS The patient is an 20-year-old female who presents to the clinic with her significant other today with a chief complaint of headache that have been present now approximately the last month. The patient reports that she has never suffered from migraines in her past and reports that she is able to continue partaking in usual activities despite her headaches. She reports that her headaches only last for approximately one minute and then they resolve and reports that all the headaches occur over the left and right temporal areas. She reports that she has not used anything fcpq-zmo-gjnwwro to help with her symptoms of discomfort including ibuprofen or Tylenol. She does report that she had a recent eye exam and a change in her prescription eyeglasses but reports that prior to the change in her prescription eyeglasses as well as when the headaches had occurred. She reports that she is currently sexually active though recently started on Depo-Provera approximately two months ago. She states that she does have increased stress at school, and is aware that this may be secondary to stress and reports that she has not had any changes in food or fluid intake or changes in her caffeine consumption over the course of the last month. She reports on occasion she develops photo sensitivity just when the symptoms occur, but reports that she otherwise denies photosensitivity or phonophobia. She states that on only one occasion she had nausea and reports that she has not had nausea since and no reports of emesis. She reports that she has presently not been sick and denies having fevers or chills, shortness of breath or difficulty breathing. She reports again that the headaches only last for a moment throughout the course of a day for approximately one minute duration and reports that they will occur anywhere from one to two times per day over the last month. The patient reports that to her knowledge she has not been diagnosed with iron deficiency anemia, although I will note her last hemoglobin on 06/28/2010 was noted to be 10.0. Past medical, surgical, family history reviewed. Please see chart. CURRENT MEDICATIONS Reviewed. Please see chart. ALLERGIES Reviewed. Please see chart. PHYSICAL EXAMINATION OBJECTIVE: Patient is alert/oriented x 3. HEAD: Normocephalic/atraumatic. PUPILS: Pupils equal, round and reactive to light.. OROPHARYNX: [place] and moist. TMs: Bilateral tympanic membranes are clear, bony landmarks noted and WNL. NARES: Patent, no erythema or drainage noted. NECK: No anterior/posterior lymphadenopathy noted. HEART: Regular S1, S2, no murmurs, rubs or gallops noted. LUNGS: Clear to auscultation, no prolonged expiratory phases, wheezing, rales or rhonchi noted. SKIN: Without unusual rashes or suspicious lesions The patient does have some mild left lower and right lower abdominal quadrant discomfort with deeper palpation. Pelvic examination deferred at this time. WBC is 6.7, hemoglobin 10.7, hematocrit 34.2%, MCV 64.6, MCH 20.3, MCHC 31.4, MPV 10.2, RDW 18.2, platelet 310, lymphocyte 45.1 and differential otherwise unremarkable. Sodium 138.9, potassium 3.9, alkaline phos 53, AST 18, ALT 16, creatinine 0.8, TSH 1.5 and within normal limits and his serum test is presently pending. IMPRESSION/REPORT/PLAN 1. Headaches 2. Microcytic anemia. PLAN: Discussed the findings with the patient. We will plan on having the patient return back for further laboratory studies including ferritin, total iron binding capacity, as most likely her anemia is secondary to iron deficiency anemia. Indicated to the patient I would like her to increase her fluid intake and take ibuprofen over the spwk-gvw-odimcal as directed on package to help with the symptoms and indicate if the symptoms do not improve follow-up would be warranted. Patient stated they understand this plan. She denied having any further questions. Patient ambulated out of clinic in no acute distress. #1 Patient Education Ready to learn No apparent learning barriers were identified Learning preferences include listening Explained diagnosis and treatment plan Patient expressed understanding of the content Brenna Craig D.N.P., F.N.P. /jak Electronically Signed By: BRENNA CRAGI DNP, FNP On: 01/20/2011 08:07 [facility] Document Id: [id number] documented in this encounter Miscellaneous Notes Miscellaneous - Brenna Craig D.N.P., C.N.P. - 01/20/2011 5:45 PM CDT Ambulatory Patient Summary [address] [address] Visit Information Name: ARIS LEOS Current Date: 01/20/2011 17:45:32 Primary Care Provider: OFELIA RICARDO RN, SKOOG PATCHING MACHINE OPERATOR Your Medications Here is a list of [...] Your Problem List Problem Status Onset Comments Thao dodge Active 10/02/2010 Your Recommendations We want to make sure [...] Chlamydia every 1 year Females Age 15-24 01/20/2011 Vaccine: Tetanus every 10 years 04/19/2005 04/17/2015 Immunization to help prevent you from getting the serious disease Tetanus (Lockjaw). Your Upcoming Appointments Date Time Location Reason Provider No Appointments found Your Goals/Additional instructions: Source: [facility] POWERCHART Document Id: [id number] Electronically signed by Anastacia [facility] Epilepsy Physician [id number] at 03/05/2017 10:49 AM CDT Miscellaneous - Brenna Craig, Bonnie.N.P., C.N.P. - 01/20/2011 5:45 PM CDT Ambulatory Depart Summary [facility] - [address] [address] Visit Information Name: ARIS LEOS Current Date: 01/20/2011 17:45:32 Primary Care Provider: OFELIA RICARDO RN, SKOOG PATCHING MACHINE OPERATOR ARIS LEOS has been given the following [...] to the patient and/or family, guardian/caregiver. Source: [facility] [employer]ART Document Id: [id number] Shashank - Betsy Chong L.P.N. - 01/20/2011 3:39 PM CDT Health Assessment Health Assessment Entered On: 01/20/2011 15:40 CDT Performed On: 01/20/2011 15:39 CDT by BETSY CHONG LPN Nutrition Nutrition Risk Factors by History Adult: None BETSY CHONG LPN - 01/20/2011 15:39 CDT Functional Current Daily Living Assistance: None BETSY CHONG LPN - 01/20/2011 15:39 CDT Dependent Habits Tobacco Use/Currently Using: Yes Exposure to Tobacco Smoke: Patient smokes BETSY CHONG LPN - 01/20/2011 15:39 CDT Tobacco Use Grid Type: Cigarettes Cigarette Use Packs/Day: 0.5 Last Use: 10 min ago BETSY CHONG LPN - 01/20/2011 15:39 CDT Caffeine Use Grid Caffeine Use: Current Type: Soft drinks Frequency: Weekly Amount: 2 cans Last Use: 11am BETSY CHONG LPN - 01/20/2011 15:39 CDT Recreational Drug Use Grid Drug Use: None BETSY CHONG LPN - 01/20/2011 15:39 CDT Psychosocial Domestic Concerns: None BETSY CHONG LPN - 01/20/2011 15:39 CDT Advance Directive Advanced Directives: No BETSY CHONG LPN - 01/20/2011 15:39 CDT Educ Needs Learning Style Preference Adult Grid Patient: Demonstration Family: Demonstration BETSY CHONG LPN - 01/20/2011 15:39 CDT Source: [facility] [employer] Document Id: [id number] CDT!31 Miscellphilippe - Betsy Chong L.P.N. - 01/20/2011 3:33 PM CDT Adult Ticket Writer Intake/History Adult Ticket Writer Intake/History Entered On: 01/20/2011 15:39 CDT Performed On: 01/20/2011 15:33 CDT by BETSY CHONG LPN Intake Chief Complaint: sharp headaches ,could be above each eye brow ,or inback of the head. They last only fro about a minute , but they are intense. Onset of Symptoms: about a month ago Temperature Core: 36.9C(Converted to: 98.4DegF) Peripheral Pulse Rate: 96/min Respiratory Rate: 18/min Systolic Blood Pressure: 122mmHg Diastolic Blood Pressure: 72mmHg NIBP Mean: 89mmHg BP Location: Right upper extremity Heart Rhythm: Regular Height: 165.00cm(Converted to: 5ft 5in, 64.96in) Actual Weight: 67.600kg(Converted to: 149lb 1oz) Weight Source: Standing scale Dosing Weight Clinic: 67.60kg Clinic BSA: 1.76 Body Mass Index: 24.83kg/m2 BETSY CHONG LPN - 01/20/2011 15:33 CDT Subjective Pain Symptoms: Yes BETSY CHONG LPN - 01/20/2011 15:33 CDT Pain Pain Assessment Grid Pain 1 Location: Head (Comment: headache [BETSY CHONG LPN 01/20/2011 15:33 CDT] ) Intensity: 1 BETSY CHONG LPN - 01/20/2011 15:33 CDT Dependent Habits Tobacco Use/Currently Using: Yes Exposure to Tobacco Smoke: Patient smokes BETSY HCONG LPN - 01/20/2011 15:33 CDT Tobacco Use Grid Type: Cigarettes Cigarette Use Packs/Day: 0.5 Last Use: 10 min ago BETSY CHONG LPN 01/20/2011 15:33 CDT Alcohol Use: No BETSY CHONG LPN 01/20/2011 15:33 CDT Caffeine Use Grid Caffeine Use: Current Type: Soft drinks Frequency: Weekly Amount: 2 cans Last Use: 11am BETSY CHONG LPN 01/20/2011 15:33 CDT Recreational Drug Use Grid Drug Use: None BETSY CHONG LPN 01/20/2011 15:33 CDT Allergies Allergies (Active) NKA Estimated Onset Date: Unspecified ; Created By: CATHLEEN KURTZ LPN; Reaction Status: Active ;Category: Drug ; Substance: NKA ; Type: Allergy ; Updated By: CATHLEEN KURTZ LPN; Reviewed Date: 01/20/2011 15:33 CDT Source: [facility] [employer] Document Id: [id number] CDT!44 documented in this encounter Plan of Treatment Not on filedocumented as of this encounter Visit Diagnoses Not on filedocumented in this encounter
--- OUTSIDE RECORDS SUMMARY | 2022-05-19 14:46 | XMS_ITS | Encounter Summary ---
:1990 Author Organization [facility] Address [address] [place] [address] Care Team Providers Name Role Phone Unavailable Primary Care Provider Unavailable Encounter Details Date Type Department Care Team Description 12/30/2010 Hospital Encounter HX [facility] Rowan Gonsales M.D. Social History Tobacco Use Types Packs/Day Years Used Date Smoking Tobacco: Never Assessed Sex Assigned at Date Recorded Not on file documented as of this encounter Progress Notes Rowan Gonsales M.D. - 12/30/2010 12:00 AM CDT [id number] CHIEF COMPLAINT/REASON FOR VISIT Abdominal pain. HISTORY OF PRESENT ILLNESS Aicha is here complaining of abdominal pain. It happens after she eats and it has been present for about two weeks. She says that if she just eats a little it is not so bad if she eats more it is worse. She had some pizza yesterday and it was quite severe after that. She says that if she can feel it in the epigastric area toward the left side and also across her lower abdomen. It only lasts for five minutes or so and then it goes away. When she has it, she says she can not do anything else. She remains standing. If she sits down, it gets worse. She has not tried taking anything for it. Has no history of ulcers or GI problems. She denies any constipation or bowel symptoms. She denies any bladder symptoms. No dysuria, frequency or menstrual problems. She is on the Depo-Provera and she is due for her next shot at the end of next month. She did get a period but has had some spotting since that time. She has not been on it real long. She does smoke and she was advised to quit. She recently got over a strep throat and was on penicillin but these symptoms started after she was done with the antibiotic. Denies any fever and denies any nausea or vomiting. She also describes this as kind of stabbing and sharp. VITAL SIGNS TEMP: afebrile PHYSICAL EXAMINATION GENERAL: On exam, does not appear in any acute distress. She is afebrile. HEENT: TMs clear. Pharynx is clear. NECK: Neck is supple without lymphadenopathy. LUNGS: Clear. HEART: Heart is regular without murmur. ABDOMEN: Soft. No masses or organomegaly. She is slightly tender just diffusely around her abdomen. There is no guarding and no rebound. No peritoneal signs. There is a little more tenderness in the left lower quadrant but it is fairly nonspecific. IMPRESSION/REPORT/PLAN Postprandial abdominal pain. PLAN: Will have her try some Pepcid AC to see if that helps. She can get that keqo-qop-rkumoxm or alternatively I told her she could try some Prilosec. She is to eat bland foods and maybe smaller amounts. If there is no improvement in a week to 10 days or if it is worse before then she is to return. Rowan Gonsales M.D. / Electronically Signed By: ROWAN GONSALES MD On: 12/30/2010 12:29 Source: [facility] MHSDOLBEYNONRADSYS Document Id: [id number] documented in this encounter Miscellaneous Notes Miscellaneous - Rowan Gonsales M.D. - 12/30/2010 11:30 AM CDT School or Work Excuse School or Work Excuse Entered On: 12/30/2010 11:31 CDT Performed On: 12/30/2010 11:30 CDT by ROWAN GONSALES MD School or Work Excuse Date Patient Seen: 12/30/2010 CDT Date of Return to School/Work Without Restrictions: 12/30/2010 CDT Comment: Aicha was seen in the office today ROWAN GONSALES MD - 12/30/2010 11:30 CDT Source: [employer] Document Id: [id number] CDT!5 Shashank - Cathleen Massey L.PAniaNAnia - 12/30/2010 11:07 AM CDT Health Assessment Health Assessment Entered On: 12/30/2010 11:07 CDT Performed On: 12/30/2010 11:07 CDT by CATHLEEN MASSEY LPN Nutrition Nutrition Risk Factors by History Adult: None CATHLEEN MASSEY LPN - 12/30/2010 11:07 CDT Functional Current Daily Living Assistance: None CATHLEEN MASSEY LPN - 12/30/2010 11:07 CDT Dependent Habits Tobacco Use/Currently Using: Yes Exposure to Tobacco Smoke: Patient smokes CATHLEEN MASSEY LPN - 12/30/2010 11:07 CDT Tobacco Use Grid Type: Cigarettes Cigarette Use Packs/Day: 0.5 Last Use: 10 min ago CATHLEEN MASSEY LPN - 12/30/2010 11:07 CDT Caffeine Use Grid Caffeine Use: Current Type: Soft drinks Frequency: Weekly Amount: 2 cans Last Use: 11am CATHLEEN MASSEY LPN - 12/30/2010 11:07 CDT Recreational Drug Use Grid Drug Use: None CATHLEEN MASSEY LPN - 12/30/2010 11:07 CDT Psychosocial Domestic Concerns: None CATHLEEN MASSEY LPN - 12/30/2010 11:07 CDT Advance Directive Advanced Directives: No CATHLEEN AMSSEY LPN - 12/30/2010 11:07 CDT Educ Needs Learning Style Preference Adult Grid Patient: None Family: None CATHLEEN MASSEY LPN - 12/30/2010 11:07 CDT Source: [employer] Document Id: [id number] CDT!31 Shashank - Cathleen Massey L.P.NAnia - 12/30/2010 11:05 AM CDT 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/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/History Entered On: 12/30/2010 11:07 CDT Performed On: 12/30/2010 11:05 CDT by CATHLEEN MASSEY LPN Intake Chief Complaint: x2 wks after eats upper stomach area hurts (9) Temperature Core: 36.4C(Converted to: 97.5DegF) (LOW) Peripheral Pulse Rate: 92/min Respiratory Rate: 16/min Systolic Blood Pressure: 104mmHg Diastolic Blood Pressure: 60mmHg NIBP Mean: 75mmHg BP Location: Left upper extremity Heart Rhythm: Regular Actual Weight: 66.700kg(Converted to: 147lb 1oz) Weight Source: Standing scale Dosing Weight Clinic: 66.70kg CATHLEEN MASSEY LPN - 12/30/2010 11:05 CDT Subjective Pain Symptoms: No CATHLEEN MASSEY LPN - 12/30/2010 11:05 CDT Dependent Habits Tobacco Use/Currently Using: Yes Tobacco Use/Advised to Quit: Yes Exposure to Tobacco Smoke: Patient smokes CATHLEEN MASSEY LPN - 12/30/2010 11:05 CDT Tobacco Use Grid Type: Cigarettes Cigarette Use Packs/Day: 0.5 Last Use: 10 min ago CATHLEEN MASSEY LPN - 12/30/2010 11:05 CDT Alcohol Use: No CATHLEEN MASSEY LPN - 12/30/2010 11:05 CDT Caffeine Use Grid Caffeine Use: Current Type: Soft drinks Frequency: Weekly Amount: 2 cans Last Use: 11am CATHLEEN MASSEY LPN - 12/30/2010 11:05 CDT Recreational Drug Use Grid Drug Use: None CATHLEEN MASSEY LPN - 12/30/2010 11:05 CDT Allergies Allergies (Active) NKA Estimated Onset Date: Unspecified ; Created By: CATHLEEN MASSEY LPN; Reaction Status: Active ;Category: Drug ; Substance: NKA ; Type: Allergy ; Updated By: CATHLEEN MASSEY LPN; Reviewed Date: 12/16/2010 9:25 CDT [facility] POWERCHART Document Id: [id number] CDT!36 documented in this encounter Plan of Treatment Not on filedocumented as of this encounter Visit Diagnoses Not on filedocumented in this encounter
--- OUTSIDE RECORDS SUMMARY | 2022-05-19 14:47 | XMS_ITS | Encounter Summary ---
:1990 Author Organization [facility] Address [address] [place] [address] Care Team Providers Name Role Phone Unavailable Primary Care Provider Unavailable Encounter Details Date Type Department Care Team Description 03/31/2010 Hospital Encounter [facility]X [facility] INPT/OBSRV Nathalie Gerardo, P.A.-Zulema. [address] [place] [address] (Wo rk) Social History Tobacco Use Types Packs/Day Years Used Date Smoking Tobacco: Never Assessed Sex Assigned at Date Recorded Not on file documented as of this encounter Plan of Treatment Not on filedocumented as of this encounter Visit Diagnoses Not on filedocumented in this encounter
--- OUTSIDE RECORDS SUMMARY | 2022-05-19 14:47 | XMS_ITS | Encounter Summary ---
:1990 Author Organization [facility] Address [address] [place] [address] Care Team Providers Name Role Phone Unavailable Primary Care Provider Unavailable Encounter Details Date Type Department Care Team Description 07/03/2009 Hospital Encounter H[facility] INPT/OBSRV Cecil Tipton M.D. [address] [place], [place] [address] (Wo rk) Social History Tobacco Use Types Packs/Day Years Used Date Smoking Tobacco: Never Assessed Sex Assigned at Date Recorded Not on file documented as of this encounter Plan of Treatment Not on filedocumented as of this encounter Visit Diagnoses Not on filedocumented in this encounter
--- OUTSIDE RECORDS SUMMARY | 2022-05-19 14:47 | XMS_ITS | Encounter Summary ---
:1990 Author Organization [facility] Address [address] [place] [address] Care Team Providers Name Role Phone Unavailable Primary Care Provider Unavailable Encounter Details Date Type Department Care Team Description 01/25/2010 Hospital Encounter HX [facility] INPT/OBSRV Lisa Velez M.D. [address] [place] [phone] (Wo rk) Social History Tobacco Use Types Packs/Day Years Used Date Smoking Tobacco: Never Assessed Sex Assigned at Date Recorded Not on file documented as of this encounter Plan of Treatment Not on filedocumented as of this encounter Visit Diagnoses Not on filedocumented in this encounter
--- OUTSIDE RECORDS SUMMARY | 2022-05-19 14:47 | XMS_ITS | Encounter Summary ---
:1990 Author Organization [facility] Address [address] [place] [address] Care Team Providers Name Role Phone Unavailable Primary Care Provider Unavailable Encounter Details Date Type Department Care Team Description 04/26/[address] [facility] INPT[facility]OBSRV Cecil Tipton M.D. [address], [place] [address] (Wo rk) Social History Tobacco Use Types Packs/Day Years Used Date Smoking Tobacco: Never Assessed Sex Assigned at Date Recorded Not on file documented as of this encounter Plan of Treatment Not on filedocumented as of this encounter Visit Diagnoses Not on filedocumented in this encounter
--- OUTSIDE RECORDS SUMMARY | 2022-05-19 14:47 | XMS_ITS | Encounter Summary ---
:1990 Author Organization [facility] Address [address] [place] [address] Care Team Providers Name Role Phone Unavailable Primary Care Provider Unavailable Encounter Details Date Type Department Care Team Description 11/26/2009 Hospital Encounter [facility] INPT/OBSRV Sánchez Roland L, GRIS, C.N.P., D.N.P. [address] [place] [address] (Wo rk) Social History Tobacco Use Types Packs/Day Years Used Date Smoking Tobacco: Never Assessed Sex Assigned at Date Recorded Not on file documented as of this encounter Plan of Treatment Not on filedocumented as of this encounter Visit Diagnoses Not on filedocumented in this encounter
--- OUTSIDE RECORDS SUMMARY | 2022-05-19 14:47 | XMS_ITS | Encounter Summary ---
:1990 Author Organization [facility] Address [address] [place] [address] Care Team Providers Name Role Phone Unavailable Primary Care Provider Unavailable Encounter Details Date Type Department Care Team Description 06/28/2010 Hospital Encounter [facility] INPT/OBSRV Cecil Tipton M.D. [address] [place], [place] [address] (Wo rk) Social History Tobacco Use Types Packs/Day Years Used Date Smoking Tobacco: Never Assessed Sex Assigned at Date Recorded Not on file documented as of this encounter Plan of Treatment Not on filedocumented as of this encounter Visit Diagnoses Not on filedocumented in this encounter
--- OUTSIDE RECORDS SUMMARY | 2022-05-19 14:47 | XMS_ITS | Encounter Summary ---
:1990 Author Organization [facility] Address [address] [place] [address] Care Team Providers Name Role Phone Unavailable Primary Care Provider Unavailable Encounter Details Date Type Department Care Team Description 02/02/2010 Hospital Encounter HX [facility] INPT/OBSRV Nathalie Gerardo, P.A.-Zulema. [address] [place] [address] (Wo rk) Social History Tobacco Use Types Packs/Day Years Used Date Smoking Tobacco: Never Assessed Sex Assigned at Date Recorded Not on file documented as of this encounter Plan of Treatment Not on filedocumented as of this encounter Visit Diagnoses Not on filedocumented in this encounter
--- NOTE | 2022-05-19 15:00 | CRLHL7_ITS ---
For Patients: As a result of the Century Cures Act, medical imaging exams and procedure reports are released immediately into your electronic medical record. You may view this report before your referring provider. If you have questions, please contact your health care provider. INDICATION: COVID IN , BPP AND GROWTH TECHNIQUE: Real time villar scale imaging of the fetus was performed. COMPARISON: 04/18/2022 FINDINGS: Sonographic imaging demonstrates a single living intrauterine gestation. Fetus demonstrates a regular cardiac rate of 171 beats per minute. Fetus has a vertex position. The placenta lies fundal. Amniotic fluid volume appears normal and there is a single deepest pocket of 6.8 cm. The estimated weight is 3451gm which lies at the 93rd %. On the prior OB ultrasound dated 04/18/2022 the estimated weight was at the 73rd percentile. BPD/HC/AC greater than 97th percentile. [place] 33rd percentile The fetus was active and demonstrated normal breathing movements. There was normal flexion and extension of the trunk and extremities. IMPRESSION: Normal biophysical profile score 8/8. Sonographic gestational age 38 weeks 5 days and sonographic due date 05/28/2022. Sonographic age 16 days ahead of the clinical age. Estimated weight 93rd percentile. Abdominal circumference greater than 97th percentile. BPD and HC also greater than 97th percentile. Dictated by Cisco Ware MD @ 05/19/2022 3:30:37 PM (Electronically Signed)
== END 2022-05-19 14:43 | disposition home or self-care (01) ==
LOC: US 14:43
PROVIDERS: Visit Provider Advanced Practice Midwife
DX: O98.513 Other viral diseases complicating pregnancy, third trimester (principal); U07.1 COVID-19; Z3A.38 38 weeks gestation of pregnancy
CPT/HCPCS: 76816; 76819

== ENCOUNTER 2022-05-19 16:08 | Outpatient (CLI) | payer OTHER, SELFPAY ==
--- OUTSIDE RECORDS SUMMARY | 2022-05-19 16:09 | XMS_ITS | Clinical Summary ---
:1990 Author Organization [facility] Address [address] [place] [address] Care Team Providers Name Role Phone Judi Strickland APRN, C.N.P., D.N.P. Primary Care Provider Source Comments Patient records contain information from all sites at [facility]. For routine questions regarding patient records, call [phone] during business hours, M-F 8:00 AM - 5:00 PM Central Time. Record requests for emergency care only can be directed to [phone] at any time.[facility] Allergies No known active allergies Medications Medication [...] (173 lb 8 oz) 10/11/2017 4:29 PM WATCHSTANDER Height 167.6 cm (5' 6) 09/15/2017 11:20 AM WATCHSTANDER Body Mass Index 28 09/15/2017 11:20 AM WATCHSTANDER Plan of Treatment Health Maintenance Due Date [...] ype Group Dates [place] [employer] [id number] 2018-Prese [address] Medicaid H[place] [address] [facility] [place] [address] Care Teams Statistical Technician Relationship Specialty Start Date End Date Judi Strickland, GRIS, C.N.P., D.N.P. PCP - General 07/25/[id number] [place] [address] [place] [phone]
--- OUTSIDE RECORDS SUMMARY | 2022-05-19 16:09 | XMS_ITS | Encounter Summary ---
:1990 Author Organization [facility] Address [address] [place] [address] Care Team Providers Name Role Phone Judi Strickland APRN, C.N.P., D.N.P. Primary Care Provider Reason for Visit Appointment Request (Routine) - Closed Specialty Diagnoses / Procedures Referred By Contact Refer red To Contact Family Medicine Referral ID Status Reason Start Date Expiration Date Visits Requ ested Visits Authorized [id number] Closed 12/21/2021 12/21/2022 1 1 Encounter Details Date Type Department Care Team Description 12/21/2021 Internal E-Consult Department of Family Mehnaz Chong OVID-19 Infection Medicine, Center [address] (Primary Dx) Street Professional [address] [facility] in [facility], [address] [place] [address] [place], [place] [phone] (Work) Social History Tobacco Use Types Packs/Day Years Used Date Smoking Tobacco: Never Smokeless Tobacco: Never Sex Assigned at Date Recorded Not on file documented as of this encounter Consult Notes Mehnaz Chong, D.OAnia - 12/21/2021 11:00 AM CDT E-Consult for Request for Outpatient Treatment for Acute Covid-19 Ms. Felix tested positive for COVID-19. The Covid-19 Infection flag in the [place] Chart has been updated. [facility], in collaboration with the [place] Department of [facility], is currently able to offer [...] order the appropriate therapy. Mehnaz Chong D.O. [place] COVID Care Team [facility] and [facility] -Eligibility for treatment requires a CAST>=1. Eligibility [...] Primary documented in this encounter Care Teams Mineralogy Teacher Relationship Specialty Start Date End Date Judi Strickland APRN, C.N.P., D.N.P. PCP - General 07/25/[address] [place] [phone] documented as of this encounter
--- OUTSIDE RECORDS SUMMARY | 2022-05-19 16:09 | XMS_ITS | Encounter Summary ---
:1990 Author Organization [facility] Address [address] [place] [address] Care Team Providers Name Role Phone Judi Strickland APRN, C.N.P., D.N.P. Primary Care Provider Encounter Details Date Type Department Care Team Description 11/10/2021 Admin Visit Department of Family Judi Strickland AP RN, Medicine, [facility], C.N.P ., D.N.P. in [address] [phone] (Wo rk) Social History Tobacco Use Types [...] COVID19 Pending 11/09/2021 11/10/2021 11/11/2021 7:23 AM ITEM PROCESSOR documented as of this encounter Care Teams Automatic Pilot Mechanic Relationship Specialty Start Date End Date Judi Strickland APRN, C.N.P., D.N.P. PCP - General 07/25/[address] [place] [phone] documented as of this encounter
--- OUTSIDE RECORDS SUMMARY | 2022-05-19 16:09 | XMS_ITS | Encounter Summary ---
:1990 Author Organization [facility] Address [address] [place] [address] Care Team Providers Name Role Phone Judi Strickland APRN, C.N.P., D.N.P. Primary Care Provider Encounter Details Date Type Department Care Team Description 06/08/2021 Orders Only [facility] Judi Strickland APRN, C.N.P., D.N.P. [address] [place] [address] [place] [phone] (Wo rk) Social History Tobacco Use Types Packs/Day Years Used Date Smoking Tobacco: Never Smokeless Tobacco: Never Sex Assigned at Date Recorded Not on file documented as of this encounter Plan of Treatment Not on filedocumented as of this encounter Visit Diagnoses Not on filedocumented in this encounter Care Teams Synchronizer Relationship Specialty Start Date End Date Judi Strickland APRN, C.N.P., D.N.P. PCP - General 07/25/[address] [place] [phone] documented as of this encounter
--- OUTSIDE RECORDS SUMMARY | 2022-05-19 16:09 | XMS_ITS | Encounter Summary ---
:1990 Author Organization [facility] Address [address] [place] [address] Care Team Providers Name Role Phone Judi Strickland APRN C.N.P., D.N.P. Primary Care Provider Reason for Referral Outpatient (Routine) - Authorized Specialty Diagnoses / Procedures Referred By Contact Refer red To Contact Family Medicine Judi Strickland APRN, [facility] C.N.P., D.N.P. [address] [place] [phone] Referral ID Status Reason Start Date Expiration Date Visits V isits Requested Authorized [id number] Authorized 03/08/2022 03/08/2023 1 1 Encounter Details Date Type Department Care Team Description 03/08/2022 Orders Only [facility] PCP TH EMILIANOT Sa marshall Givens M.D. [address] [place], [place] [phone] (Wo rk) Social History Tobacco Use Types Packs/Day Years Used Date Smoking Tobacco: Never Smokeless Tobacco: Never Sex Assigned at Date Recorded Not on file documented as of this encounter Plan of Treatment Scheduled Referrals Name Type Priority Associated Diagnoses [facility] Outpatient Referral Routine Expec jacob: office visit 03/22/2022, (clinic) Expires: 09/04/2022 documented as of this encounter Visit Diagnoses Not on filedocumented in this encounter Care Teams Menagerie Caretaker Relationship Specialty Start Date End Date Judi Strickland APRN, C.N.P., D.N.P. PCP - General 07/25/[address] [phone] documented as of this encounter
--- OUTSIDE RECORDS SUMMARY | 2022-05-19 16:09 | XMS_ITS | Encounter Summary ---
:1990 Author Organization [facility] Address [address] [place] [address] Care Team Providers Name Role Phone Judi Strickland APRN, C.N.P., D.N.P. Primary Care Provider Reason for Visit Reason Onset Date Comments Outpatient COVID-19 Testing 01/16/2020 Encounter Details Date Type Department Care Team Description 01/16/2020 External Outreach Department of [facility] Leann Garrido [facility] Medicine, [place] Lona PAniaARamakrishna [facility] (Primary Clinic, in [place], [address] Dx) [place], [place] [address] [address] [employer], [place] [phone] (Work) [phone] Social History Tobacco Use Types Packs/Day Years [...] SARS Coronavirus-2, PCR (01/16/2020 4:46 PM CDT) [facility] Method Time Signature SARS Swab, 01/17/2020 DTL [...] performa nce characteristics determined by [facility] in a manner co nsistent with CLIA requirements. Independent review by the U.S. Food and Drug Administration is pending. Visit the CDC website: https://www.cdc.gov/coronavirus/ ?? for the most recent guidelines on [place] virus testing. Fact Sheet for Healthcare Providers: (https://www.[employer]/it-mmfil es/ Provider_Fact_Sheet_for_[place]_COVI D-19.pdf) Fact Sheet for Patients: (https://www.[employer]/it-mmfil es/ Patient_Fact_Sheet_for_COVID-19.pdf) Specimen Anatomical Collection Method Collection Time Receive d Time (Source) Location / / Volume Laterality Varies 01/16/2020 4:46 PM 0 8:45 (Nasopharynx) CDT PM CDT Del Garrido P.A.-C. LAB MICROBIOLOGY - GENERAL O RDERABLES Performing Organization Address City/State/ZIP Code Phon e Number [facility] - [address] [place], [place] [address] [place] [address] [facility] [address] documented in this encounter Visit Diagnoses Diagnosis Infection Upper Respiratory - Primary documented in this encounter Care Teams Trial Manager Relationship Specialty Start Date End Date Judi Strickland APRN, C.N.P., D.N.P. PCP - General 07/25/[phone] [place] [phone] documented as of this encounter
--- OUTSIDE RECORDS SUMMARY | 2022-05-19 16:09 | XMS_ITS | Encounter Summary ---
:1990 Author Organization [facility] Address [address] [place] [address] Care Team Providers Name Role Phone No Ref-Primary, Physician Primary Care Provider [phone] Encounter Details Date Type Department Care [...] on filedocumented in this encounter Care Teams Parole Agent Relationship Specialty Start Date End Date No Ref-Primary, Physician PCP - General 01/27/22 documented as of this encounter
--- OUTSIDE RECORDS SUMMARY | 2022-05-19 16:09 | XMS_ITS | Encounter Summary ---
:1990 Author Organization [facility] Address [address] [place] [address] Care Team Providers Name Role Phone Judi Strickland APRN, C.N.P., D.N.P. Primary Care Provider Encounter Details Date Type Department Care Team Description 11/10/2021 Hospital Encounter Department of Laboratory Del Garrido, Medicine in [place] [phone] (Wo rk) Social History Tobacco Use Types [...] COVID19 Pending 11/09/2021 11/10/2021 11/11/2021 7:23 AM MARKET RISK MANAGER documented as of this encounter Care Teams Call Taker Relationship Specialty Start Date End Date Judi Strickland APRN, C.N.P., D.N.P. PCP - General 07/25/[address] [place] [address] EMILIANO Madrigal [phone] documented as of this encounter
--- OUTSIDE RECORDS SUMMARY | 2022-05-19 16:09 | XMS_ITS | Encounter Summary ---
:1990 Author Organization [facility] Address [address] [place] [address] Care Team Providers Name Role Phone Judi Strickland APRN, C.N.P., D.N.P. Primary Care Provider Encounter Details Date Type Department Care Team Description 10/18/2021 Clinical Communication Department of [facility] in [address] [address] [place], [place] [phone] (Work) [phone] Social History Tobacco Use Types Packs/Day Years Used Date Smoking Tobacco: Never Smokeless Tobacco: Never Sex Assigned at Date Recorded Not on file documented as of this encounter Miscellaneous Notes Telephone Encounter - Kalyani Bardales R.N. - 10/20/2021 9:37 AM CST Spoke with patient. States that she is unsure if she is planning to come through or [place]. Will call back when decides where she wants her care. LATION NOZZLEMAN Telephone Encounter - Carleen Fontaine - 10/18/2021 4:44 PM CST New ob LATION NOZZLEMAN documented in this encounter Plan of Treatment Not on filedocumented as of this encounter Visit Diagnoses Not on filedocumented in this encounter Care Teams Bottom Buffer Relationship Specialty Start Date End Date Judi Strickland APRN, C.N.P., D.N.P. PCP - General 07/25/[address] [place] [phone] documented as of this encounter
--- OUTSIDE RECORDS SUMMARY | 2022-05-19 16:09 | XMS_ITS | Encounter Summary ---
:1990 Author Organization [facility] Address [address] [place] [address] Care Team Providers Name Role Phone Elsewhere, Pcp Primary Care Provider Unavailable Encounter Details Date Type Department Care Team Description 09/12/2017 Abstract Department of Family Medicine, Provider, Historical [facility], in [place], [place] [address] [address] [facility] [phone] Social History Tobacco Use Types Packs/Day Years Used Date Smoking Tobacco: Never Sex Assigned at Date Recorded Not on file documented as of this encounter Plan of Treatment Not on filedocumented as of this encounter Visit Diagnoses Not on filedocumented in this encounter Care Teams Pet Food Deboner Relationship Specialty Start Date End Date Elsewhere, Pcp PCP - General Family Medicine 09/05/17 06/26/18 documented as of this encounter
--- OUTSIDE RECORDS SUMMARY | 2022-05-19 16:09 | XMS_ITS | Clinical Summary ---
:1990 Author Organization [facility] Address [address] [place] [address] Care Team Providers Name Role Phone No Ref-Primary, Physician Primary Care Provider [phone] Encounters Date Type Specialty Care Team [...] Procedure Name Priority Date/Time Associated Comments Diagnosis [facility] US COMPREHENSIVE Routine 02/25/2022 8:31 AM Suspected feta l Results for this SINGLE F/U CDT anomaly, procedure are i n antepartum, single the resul ts or unspecified section. fetus from Last 3 Months Results [facility] US Comprehensive Single F/U (02/25/2022 8:31 AM [...] LEOS Study Date: 02/25/2022 7:44am Pat. NO: [id number] Referring ??MD: ZACH METZGER Site: [facility] Tool Salvage Worker: Juliette Ocasio RD MS : 1990 Age: [...] lb 11 ? oz EFW by ?Hadlock ([id number]) Head / Face / Neck Biometry: Reporting Consultant ? 5.6 ? mm CM ?6.1 ? mm ANATOMY Abdomen ? Right adrenal gland: prominent ? Left adrenal gland: prominent The following structures appear normal: Head / Neck ? Cranium. Head size. Head shape. Lateral ventricles. Midline falx. Cavum septi pellucidi. Cerebellum. Cisterna magna. Thalami. Face ? Lips. Profile. Nose. Heart / Thorax ?4-chamber view. RVOT view. LVOT view. 5-ejanyt-ffyfavk view. ? Diaphragm. Abdomen ? Stomach. Kidneys. [...] Pat. Name:Alejandro LEOS Date: 7:44am Pat. NO: [id number] MD:MARCO A METZGER [facility]Juliette ZavalaANNETTE calero :1990Age:31 INDICATION Prominent adrenal [...] 1 lb 11 oz EFW by Hadlock ([id number]-FL) Head / Face / Neck Biometry: Reporting Consultant 5.6 mm CM 6.1 mm ANATOMY Abdomen Right adrenal gland: prominent Left adrenal gland: prominent The following structures appear normal: Head / Neck Cranium. Head size. Head sha pe. Lateral ventricles. Midline falx. Cavum septi pellucidi. Cerebellum. Cisterna magna. Thalami. Face Lips. Profile. Nose. Heart / Thorax 4-chamber view. RVOT view . LVOT view. 9-qxrakc-iavotqp view. Diaphragm. Abdomen Stomach. Kidneys. Bladder. Spine [...] Phone Address Typ e / Group Dates [facility] [id number] 2021-Deonte [phone] [facility] [address] [facility] [address] [place] [phone] Care Teams Manager Process Improvement Relationship Specialty Start Date End Date No Ref-Primary, Physician PCP - General 01/27/22
--- OUTSIDE RECORDS SUMMARY | 2022-05-19 16:09 | XMS_ITS | Encounter Summary ---
:1990 Author Organization [facility] Address [address] [place] [address] Care Team Providers Name Role Phone Judi Strickland APRN, C.N.P., D.N.P. Primary Care Provider Reason for Visit Reason Comments COVID Nurse Line Encounter Details Date Type Department Care Team Description 01/16/2020 Clinical Communication Central Appointment Line, Covid COVID Nurse Line Office in [facility] [address] [place] [address] Social History Tobacco Use Types [...] to be swabbed for COVID-19, sent to [place], [place] and Self-isolation, quarantine at home Care Points provided: Standard precautions for all patients: Wash hands often with soap and water for at least 20 seconds, especially after blowing your nose, coughing, sneezing, or having been in a public place. If soap and water aren't available, use a hand client engagement specialist that contains at least 60% alcohol. [...] essential items or medical care). Educational Resource: https://www.cdc.gov/coronavirus/2019-ncov/wvetxnf-lfhhdry-bohi/index.html Recommendations as testing criteria is met: Stay [...] if any new orworsening symptoms. Education Resources: https://www.cdc.gov/coronavirus/2019-ncov/ay-nuz-ggw-sick/st ehh-nfdu-gvqn.html Education: patient/caregiver Patient/caregiver able to teach back Patient agreeable to plan of care: Yes The following references were used: [facility] novel coronavirus (COVID- 19) resources CDC web site https://www.cdc.gov/coronavirus/2019-ncov/summary.html [facility] ([facility]) Guidelines for self-isolation Nursing judgement documented in this encounter Plan of Treatment Not on filedocumented as of this encounter Visit Diagnoses Not on filedocumented in this encounter Care Teams Head Animal Keeper Relationship Specialty Start Date End Date Judi Strickland APRN, C.N.P., D.N.P. PCP - General 07/25/[address] [place] [phone] documented as of this encounter
--- OUTSIDE RECORDS SUMMARY | 2022-05-19 16:09 | XMS_ITS | Encounter Summary ---
:1990 [address] [facility] Address [address] [place] [address] Care Team Providers Name Role Phone Judi Strickland APRN, C.N.P., D.N.P. Primary Care Provider Reason for Visit Reason Onset Date Comments Testing For Upper Respiratory Virus Symptoms 11/09/2021 Encounter Details Date Type Department Care Team Description 11/09/2021 External Outreach Department of [facility] Leann Garrido Contact With And Medicine, [place] Flaquita ZamoranoARamakrishna (Suspected) Exposure Clinic, in [address] To COVID-19 (Primary [place], [place] Dx) [address] [facility] [address] [place], [place] [phone] (Work) [phone] Social History Tobacco Use Types Packs/Day Years Used Date Smoking Tobacco: Never Smokeless Tobacco: Never Sex Assigned at Date Recorded Not on file documented as of this encounter Progress Notes Betty Sky R.N. - 11/09/2021 8:34 AM CST Encounter created for symptomatic infectious disease screening with possible COVID, Influenza, RSV, and/or Group A Strep testing. R PROJECT MANAGER documented in this encounter Plan of Treatment Not on filedocumented as of this encounter Procedures Procedure Name Priority Date/Time Associated Diagnosis Comme nts SARS CORONAVIRUS-2 Routine 11/10/2021 3:51 PM Contact With And Results for this RNA, V POWER PROJECT MANAGER (Suspected) Exposure procedu re are in To COVID-19 the results section. documented in this encounter Results SARS Coronavirus-2 RNA, V Symptomatic (11/10/2021 3:51 PM POWER PROJECT MANAGER) [facility] Method Time Signature SARS-CoV-2 Swab, 11/11/2021 ECLR Specimen Nasopharynx 7:22 AM POWER PROJECT MANAGER Source SARS CoV-2 Undetected Undetected 11/11/2021 ECLR RNA, TMA 7:22 AM POWER PROJECT MANAGER Comment: SARS-CoV-2 RNA absent. This result does not rule out COVID-19 in the patient, as the sensitivity of the test depends o n the timing of the specimen collection and the quality of the specim en. Result should be correlated with patient's history and clinical presentat ion. ----ADDITIONAL INFORMATION---- This molecular amplification test was pe rformed using the Aptima SARS-CoV-2 assay ([employer] on the Capt[employer]itys tem under emergency use authorization (EUA) by the U.S. Food and Drug Administ ration. Fact sheets for this EUA assay can be fo und at the following links: For Healthcare Providers: https://www.[employer] a.gov/media/112982/download For Patients: https://www.fda.gov/media/ 437874/download Specimen Anatomical Collection Method Collection Time Receive d Time (Source) Location / / Volume Laterality Varies 11/10/2021 3:51 PM 9:57 (Nasopharynx) POWER PROJECT MANAGER PM POWER PROJECT MANAGER Del G[facility] P.A.-C. LAB MICROBIOLOGY - GENERAL O RDERABLES Performing Organization Address City/State/ZIP Code Phon e Number [facility]- [address] [place] [phone] [facility] [place] [address] System [address] documented in this encounter Visit Diagnoses Diagnosis Contact With And (Suspected) Exposure To COVID-19 - Primary documented in this encounter Additional Health Concerns Infection Onset Date Last Indicated Resolved Time COVID19 Pending 11/09/2021 11/10/2021 11/11/2021 7:23 AM POWER PROJECT MANAGER documented as of this encounter Care Teams Cutter Brake Lining Relationship Specialty Start Date End Date Judi Strickland APRN, C.N.P., D.N.P. PCP - General 07/25/[address] [place] [phone] documented as of this encounter
--- OUTSIDE RECORDS SUMMARY | 2022-05-19 16:09 | XMS_ITS | Encounter Summary ---
:1990 Author Organization [facility] Address [address] [place] [address] Care Team Providers Name Role Phone Elsewhere, Pcp Primary Care Provider Unavailable Encounter Details Date Type Department Care Team Description 09/05/2017 Orders Only Department of Family Medicine, Elsewhere, Pcp [facility], in [address] [phone] Social History Tobacco Use Types Packs/Day Years Used Date Smoking Tobacco: Never Sex Assigned at Date Recorded Not on file documented as of this encounter Plan of Treatment Not on filedocumented as of this encounter Visit Diagnoses Not on filedocumented in this encounter Care Teams Government Employee Relationship Specialty Start Date End Date Elsewhere, Pcp PCP - General Family Medicine 09/05/17 06/26/18 documented as of this encounter
--- OUTSIDE RECORDS SUMMARY | 2022-05-19 16:09 | XMS_ITS | Encounter Summary ---
:1990 Author Organization [facility] Address [address] [place] [address] Care Team Providers Name Role Phone Judi Strickland APRN, C.N.P., D.N.P. Primary Care Provider Reason for Referral Outpatient (Routine) - Closed Specialty Diagnoses / Procedures Referred By Contact Refer red To Contact Family Medicine Judi Strickland APRN, [facility] C.N.P., D.N.P. [address] [place] [address] [place] [address] Referral ID Status Reason Start Date Expiration Date Visits Requ ested Visits Authorized [id number] Closed 03/19/2020 03/19/2021 1 1 Encounter Details Date Type Department Care Team Description 03/19/2020 Orders Only RST PCP [facility] Judi Strickland APRN, C.N.P., D.N.P. [address] [place] [phone] (Wo rk) Social History Tobacco Use Types Packs/Day Years Used Date Smoking Tobacco: Never Smokeless Tobacco: Never Sex Assigned at Date Recorded Not on file documented as of this encounter Plan of Treatment Scheduled Referrals Name Type Priority Associated Diagnoses Order S [facility] Family Medicine Outpatient Referral Routine Expec jacob: office visit 04/02/2020, (clinic) Expires: 03/19/2023 documented as of this encounter Visit Diagnoses Not on filedocumented in this encounter Care Teams Chemical Operator Relationship Specialty Start Date End Date Judi Strickland APRN, C.N.P., D.N.P. PCP - General 07/25/[address] [phone] documented as of this encounter
--- OUTSIDE RECORDS SUMMARY | 2022-05-19 16:09 | XMS_ITS | Encounter Summary ---
:1990 Author Organization [place] Address [facility] [place] [address] Care Team Providers Name Role Phone No Ref-Primary, Physician Primary Care Provider [phone] Afsaneh Enciso DO Unavailable [phone] Reason for Referral Diagnostic Imaging Ultrasound (Routine) - Pending Review Specialty Diagnoses / Procedures Referred By Contact Refer red To Contact Diagnoses Suspected anomaly, antepartum, single or unspecified fetus Afsaneh Enciso, Procedures [facility] US Comprehensive Single F/U DO [address] [place], [place] [address] Referral ID Status Reason Start Date Expiration Date Visits V isits Requested Authorized [id number] Pending 01/28/2022 01/28/2023 1 1 Review Reason for Visit Diagnostic Imaging Ultrasound (Routine) - Pending Review Specialty Diagnoses / Procedures Referred By Contact Refer red To Contact Diagnoses Suspected anomaly, antepartum, single or unspecified fetus Afsaneh Enciso, Procedures [facility] US Comprehensive Single F/U DO [address] [place], [place] [address] Referral ID Status Reason Start Date Expiration Date Visits V isits Requested Authorized [id number] Pending 01/28/2022 01/28/2023 1 1 Review Encounter Details Date Type Department Care Team Description 02/25/2022 Hospital Encounter [facility] Heather Sanderson DO [address] [place] [address] Suspected Maternal Pinky Cottrell MD [address] [place], [place] [address] anomaly, Medicine Center antepartum, single [place] or unspecified [address] [facility] fetus [address] [place] [address] Social History Tobacco Use Types [...] Procedure Name Priority Date/Time Associated Comments Diagnosis [facility] US COMPREHENSIVE Routine 02/25/2022 8:31 AM Suspected feta l Results for this SINGLE F/U CDT anomaly, procedure are i n antepartum, single the resul ts or unspecified section. fetus documented in this encounter Results [facility] US Comprehensive Single F/U (02/25/2022 8:31 AM [...] LEOS Study Date: 02/25/2022 7:44am Pat. NO: [id number] Referring ??MD: ZACH METZGER Site: [facility] Business Reporter: Juliette Ocasio RD MS : 1990 Age: [...] lb 11 ? oz EFW by ?Hadlock ([id number]) Head / Face / Neck Biometry: Boatswains Mate ? 5.6 ? mm CM ?6.1 ? mm ANATOMY Abdomen ? Right adrenal gland: prominent ? Left adrenal gland: prominent The following structures appear normal: Head / Neck ? Cranium. Head size. Head shape. Lateral ventricles. Midline falx. Cavum septi pellucidi. Cerebellum. Cisterna magna. Thalami. Face ? Lips. Profile. Nose. Heart / Thorax ?4-chamber view. RVOT view. LVOT view. 5-nzxxke-urxultv view. ? Diaphragm. Abdomen ? Stomach. Kidneys. [...] Pat. Name:Alejandro LEOS Date: 7:44am Pat. NO: [id number] :MARCO A METZGER [facility]Juliette Ocasio RDMS :1990Age:31 INDICATION Prominent [...] 1 lb 11 oz EFW by Hadlock ([id number]-FL) Head / Face / Neck Biometry: Boatswains Mate 5.6 mm CM 6.1 mm ANATOMY Abdomen Right adrenal gland: prominent Left adrenal gland: prominent The following structures appear normal: Head / Neck Cranium. Head size. Head sha pe. Lateral ventricles. Midline falx. Cavum septi pellucidi. Cerebellum. Cisterna magna. Thalami. Face Lips. Profile. Nose. Heart / Thorax 4-chamber view. RVOT view . LVOT view. 4-aykbjr-umjhjeg view. Diaphragm. Abdomen Stomach. Kidneys. Bladder. Spine [...] fetus documented in this encounter Care Teams Supervisor Fish Hatchery Relationship Specialty Start Date End Date No Ref-Primary, Physician PCP - General 01/27/22 Afsaneh Enciso DO Assigned OBGYN Provider 02/06/22 04/29/[address] [place] [address] [address] [place], [place] [id number] documented as of this encounter
--- OUTSIDE RECORDS SUMMARY | 2022-05-19 16:09 | XMS_ITS | Encounter Summary ---
:1990 Author Organization [facility] Address [address] [place] [address] Care Team Providers Name Role Phone Elsewhere, Pcp Primary Care Provider Unavailable Encounter Details Date Type Department Care Team Description 10/12/2017 Hospital Encounter [facility] in [place], [place] C.N.P., D.N.P. [address] [facility] [address] [place] [address] [phone] Social History Tobacco Use Types Packs/Day Years [...] this OR BILIARY DUCTS (most inpatients AM SEWER PIPE OFFBEARER Quadrant procedu re are in and all the results outpatients) section. documented in this encounter Results US Gallbladder (10/12/2017 9:15 AM SEWER PIPE OFFBEARER) Anatomical Region Laterality Modality Abdomen N/A Ultrasound Specimen (Source) Anatomical Collection Method Collection Time Re ceived Time Location / / Volume Laterality 10/12/2017 9:25 AM SEWER PIPE OFFBEARER Impressions 10/12/2017 9:25 AM SEWER PIPE OFFBEARER IMPRESSION: Normal gallbladder ultrasoun d. Narrative 10/12/2017 9:25 AM SEWER PIPE OFFBEARER EXAM: US GALLBLADDER COMPARISON: None FINDINGS: Gallbladder: [...] abdominal aorta. IMPRESSION: Normal gallbladder ultrasoun d. Suznane Garcia APRN, C.N.P., D.N.P. IMG US PROCEDURES documented in this encounter Visit Diagnoses Diagnosis Pain Right Upper Quadrant documented in this encounter Care Teams Loan Officer Assistant Relationship Specialty Start Date End Date Elsewhere, Pcp PCP - General Family Medicine 09/05/17 06/26/18 documented as of this encounter
--- OUTSIDE RECORDS SUMMARY | 2022-05-19 16:09 | XMS_ITS | Encounter Summary ---
:1990 Author Organization [place] Address [address] [place] [address]. [place] [address] Care Team Providers Name Role Phone Unavailable Primary Care Provider Unavailable Reason for Referral Diagnostic Imaging Ultrasound (Routine) - Pending Review Specialty Diagnoses / Procedures Referred By Contact Refer red To Contact Diagnoses related condition, antepartum Romana Metzger MD Procedures [facility] [address] [place] [address] Fax: Referral ID Status Reason Start Date Expiration Date Visits V isits Requested Authorized [id number] Pending 01/26/2022 01/26/2023 1 1 Review Encounter Details Date Type Department Care Team Description 01/26/2022 [facility] Pr egnancy related Maternal MD condition, [facility] antepartum (Primary [facility] Dx) [address] [address] [phone] Social History Tobacco Use Types Packs/Day Years Used Date Never Assessed Sex Assigned at Date Recorded Not on file documented as of this encounter Plan of Treatment Not on filedocumented as of this encounter Results [facility] (01/28/2022 2:16 PM CDT) Anatomical Region [...] LEOS Study Date: 01/28/2022 1:24pm Pat. NO: [id number] Referring ??: ZACH METZGER Site: [facility] Welder Metal Fab: Tania Reid RD ND : 1990 Age: 31 INDICATION Left, Echogenic [...] lb 13 ? oz EFW by ?Hadlock ([id number]-PA) Head / Face / Neck Biometry: Credentials Specialist ? 4.6 ? mm CM ?5.7 ? [...] cava. Inferior vena cava. 3-vessel view. ? 5-zbwmlq-rzauqcl view. Cardiac position. Cardiac size. Cardiac rhythm. [...] RECOMMENDATION We discussed the [facility] the patient. Referred due to prominent [...] Pat. Name:ARIS LEOSDavid Date: 1:24pm Pat. NO: [id number] MD:ROMANA METZGER [facility]:Tania Reid RDMS :1990Age:31 INDICATION Left, Echogenic Intracardiac [...] 0 lb 13 oz EFW by Hadlock ([id number]-QS-PN-FL) Head / Face / Neck Biometry: Credentials Specialist 4.6 mm CM 5.7 mm Nasal bone [...] vena cava. Inferior vena cava. 3-vessel view. 4-wehses-hhydoze view. Cardiac position . Cardiac size. Cardiac [...] RECOMMENDATION We discussed the findings on today's [facility] with the patient. Referred due to [...] volume appeared no rmal. Romana Metzger MD [facility] US ORDERABLES documented in this encounter Visit Diagnoses Diagnosis related condition, antepartum - Primary related condition, antepartum documented in this encounter
--- OUTSIDE RECORDS SUMMARY | 2022-05-19 16:09 | XMS_ITS | Encounter Summary ---
:1990 Author Organization [facility] Address [address] [place] [address] Care Team Providers Name Role Phone Elsewhere, Pcp Primary Care Provider Unavailable Reason for Visit Reason Comments Other ingrown toenail very painful left big toe Appointment Request (Routine) - Closed Specialty Diagnoses / Procedures Referred By Contact Refer red To Contact Family Medicine Referral ID Status Reason Start Date Expiration Date Visits Requ ested Visits Authorized [id number] Closed 09/12/2017 03/11/2018 1 1 Encounter Details Date Type Department Care Team Description 09/15/2017 Office Visit Department of Family Martin Jay Ingro wn Toenail Medicine, [facility] (Primary Dx) Clinic, [place] [address] [place] [phone] Social History Tobacco Use Types Packs/Day Years Used Date Smoking Tobacco: Never Smokeless Tobacco: Never Sex Assigned at Date Recorded Not on file documented as of this encounter Last Filed Vital Signs Vital Sign Reading Time Taken Comments Blood Pressure 125/82 09/15/2017 11:20 AM AUTO TECH Pulse 110 09/15/2017 11:20 AM AUTO TECH Temperature 37 ??C (98.6 ??F) 09/15/2017 11:20 AM AUTO TECH Respiratory Rate 16 09/15/2017 11:20 AM AUTO TECH Oxygen Saturation - - Inhaled Oxygen Concentration - - Weight 78.2 kg (172 lb 6.4 oz) 09/15/2017 11:20 AM AUTO TECH Height 167.6 cm (5' 6) 09/15/2017 11:20 AM AUTO TECH Body Mass Index 27.83 09/15/2017 11:20 AM AUTO TECH documented in this encounter H&P Notes Martin [...] for a wedge resection. See procedure note. TECH documented in this encounter Procedure Notes Martin [...] 25 G Block technique: Four-sided ring block [place] injection procedure: Anatomic landmarks identified, incremental injection, [...] Up to date Complications: no immediate complications TECH documented in this encounter Plan of Treatment Not on filedocumented as of this encounter Procedures Procedure Name Priority Date/Time Associated Diagnosis Comme nts MA EXCISN INGROWN Routine 09/15/2017 11:30 AM Ingrown Toenail Results for this TOENAIL AUTO TECH procedure are i n the results section. documented in this encounter Results MA EXCISN INGROWN TOENAIL (09/15/2017 11:30 AM AUTO TECH) Narrative MMODAL - 09/15/2017 11:30 AM AUTO TECH Martin Jay M.D. ? 09/16/2017 ??9:29 AM [...] G ??Block technique: ??Four-sided ring bl ock ??[place] injection procedure: ??Anatomic landmarks identified, incremental injection, [...] Primary documented in this encounter Care Teams Sewing Machine Attachment Tester Relationship Specialty Start Date End Date Elsewhere, Pcp PCP - General Family Medicine 09/05/17 06/26/18 documented as of this encounter
--- OUTSIDE RECORDS SUMMARY | 2022-05-19 16:09 | XMS_ITS | Encounter Summary ---
:1990 Author Organization [facility] Address [address] [place] [address] Care Team Providers Name Role Phone Elsewhere, Pcp Primary Care Provider Unavailable Reason for Visit Appointment Request (Routine) - Closed Specialty Diagnoses / Procedures Referred By Contact Refer red To Contact Family Medicine Referral ID Status Reason Start Date Expiration Date Visits Requ ested Visits Authorized [id number] Closed 05/31/2018 05/31/2019 1 Encounter Details Date Type Department Care Team Description 05/31/2018 Office Visit Department of Family José Scott, In grown Toenail MedicineTosha M.D. (Primary Dx) Clinic, in [address] [place] [phone] [phone] Social History Tobacco Use Types Packs/Day Years [...] Primary documented in this encounter Care Teams Qa Automation Engineer Relationship Specialty Start Date End Date Elsewhere, Pcp PCP - General Family Medicine 09/05/17 06/26/18 documented as of this encounter
--- OUTSIDE RECORDS SUMMARY | 2022-05-19 16:09 | XMS_ITS | Encounter Summary ---
:1990 Author Organization [place] Address [address] [place] [address] Care Team Providers Name Role Phone Unavailable Primary Care Provider Unavailable Reason for Visit Reason Comments Ultrasound L2-L Ventricular EIF, bilate ral adrenal gland enlargement Encounter Details Date Type Department Care Team Description 01/26/2022 PRE VISIT [facility] Carlos, Ultrasound (L2-L Maternal Medicine ABIEL Gardiner Vent ricular EIF, [facility] bilateral adrenal [address] gland en largement) [address] [place] [address] Social History Tobacco Use Types [...]
--- OUTSIDE RECORDS SUMMARY | 2022-05-19 16:09 | XMS_ITS | Encounter Summary ---
:1990 Author Organization [place] Address [facility] [place] [address] Care Team Providers Name Role Phone No Ref-Primary, Physician Primary Care Provider [phone] Reason for Referral Diagnostic Imaging Ultrasound (Routine) - Pending Review Specialty Diagnoses / Procedures Referred By Contact Refer red To Contact Diagnoses Suspected anomaly, antepartum, single or unspecified fetus Afsaneh Enciso, Procedures [facility] US Comprehensive Single F/U DO [address] [place], [place] [address] Referral ID Status Reason Start Date Expiration Date Visits V isits Requested Authorized [id number] Pending 01/28/2022 01/28/2023 1 1 Review Reason for Visit Reason Comments Ultrasound L2-EIF, bilateral enlarged a drenals Encounter Details Date Type Department Care Team Description 01/28/[address] [facility] Romana Metzger MD [facility] [address] [place] [address] Suspected anomaly, antepartum, sin gle or unspecified fetus (Primary Dx); Maternal Afsaneh Enciso, [address] [place] [address] Echogenic focus of bowel of fetus affect ing antepartum care of mother, single or unspecified fetus [facility] [address] [facility] [address] [place] [address] Social History Tobacco Use Types [...] on filedocumented as of this encounter Results [facility] US Comprehensive Single F/U (02/25/2022 8:31 [...] LEOS Study Date: 02/25/2022 7:44am Pat. NO: [id number] Referring ??: ZACH METZGER Site: [facility] Procurement Buyer: Juliette Ocasio RD MS : 1990 Age: [...] lb 11 ? oz EFW by ?Hadlock ([id number]-FL) Head / Face / Neck Biometry: Technicians And Trades Workers ? 5.6 ? mm CM ?6.1 ? mm ANATOMY Abdomen ? Right adrenal gland: prominent ? Left adrenal gland: prominent The following structures appear normal: Head / Neck ? Cranium. Head size. Head shape. Lateral ventricles. Midline falx. Cavum septi pellucidi. Cerebellum. Cisterna magna. Thalami. Face ? Lips. Profile. Nose. Heart / Thorax ?4-chamber view. RVOT view. LVOT view. 3-aimtvd-ceklemf view. ? Diaphragm. Abdomen ? Stomach. Kidneys. [...] Pat. Name:Alejandro LEOS Date: 7:44am Pat. NO: [id number] MD:ROMANA METZGER [facility]:Juliette Ocasio RD :1990Age:31 INDICATION Prominent adrenal glands [...] 1 lb 11 oz EFW by Hadlock ([id number]-FL) Head / Face / Neck Biometry: Technicians And Trades Workers 5.6 mm CM 6.1 mm ANATOMY Abdomen Right adrenal gland: prominent Left adrenal gland: prominent The following structures appear normal: Head / Neck Cranium. Head size. Head sha pe. Lateral ventricles. Midline falx. Cavum septi pellucidi. Cerebellum. Cisterna magna. Thalami. Face Lips. Profile. Nose. Heart / Thorax 4-chamber view. RVOT view . LVOT view. 6-upjdps-fbydtgd view. Diaphragm. Abdomen Stomach. Kidneys. Bladder. Spine [...] fetus documented in this encounter Care Teams Workforce Management Analyst Relationship Specialty Start Date End Date No Ref-Primary, Physician PCP - General 01/27/22 documented as of this encounter
--- OUTSIDE RECORDS SUMMARY | 2022-05-19 16:09 | XMS_ITS | Encounter Summary ---
:1990 Author Organization [place] Address [facility] [place] [address] Care Team Providers Name Role Phone No Ref-Primary, Physician Primary Care Provider [phone] Reason for Referral Diagnostic Imaging Ultrasound (Routine) - Pending Review Specialty Diagnoses / Procedures Referred By Contact Refer red To Contact Diagnoses related condition, antepartum Romana Metzger MD Procedures [facility] [address] [place] [address] Fax: Referral ID Status Reason Start Date Expiration Date Visits V isits Requested Authorized [id number] Pending 01/26/2022 01/26/2023 1 1 Review Reason for Visit Diagnostic Imaging Ultrasound (Routine) - Pending Review Specialty Diagnoses / Procedures Referred By Contact Refer red To Contact Diagnoses related condition, antepartum Romana Metzger MD Procedures [facility] [address] [place] [address] Fax: Referral ID Status Reason Start Date Expiration Date Visits V isits Requested Authorized [id number] Pending 01/26/2022 01/26/2023 1 1 Review Encounter Details Date Type Department Care Team Description 01/28/2022 Hospital Encounter [facility] Eduarda Metzger MD [facility] [address] [place] [address] related Maternal Afsaneh Enciso, DO [address] [facility] [address] [place], [place] [address] condition, Medicine Center antepartum [place] [address] [facility] [address] [place] [address] Social History Tobacco Use Types [...] results section. documented in this encounter Results [facility] US Comprehensive Single (01/28/2022 2:16 PM CDT) [...] LEOS Study Date: 01/28/2022 1:24pm Pat. NO: [id number] Referring ??MD: ZACH METZGER Site: [facility] Commercial Fisher: Tania Reid RD MS : 1990 Age: [...] lb 13 ? oz EFW by ?Hadlock ([id number]-FL) Head / Face / Neck Biometry: Health Program Manager ? 4.6 ? mm CM ?5.7 ? [...] cava. Inferior vena cava. 3-vessel view. ? 1-ztjxyz-veyzlcw view. Cardiac position. Cardiac size. Cardiac rhythm. [...] We discussed the findings on today's [facility] with the patient. Referred due to prominent [...] Pat. Name:Alejandro LEOS Date: 1:24pm Pat. NO: [id number] :ROMANA METZGER [facility]Tania Reid RDMS :1990Age:31 INDICATION Left, Echogenic [...] 0 lb 13 oz EFW by Hadlock ([id number]-FL) Head / Face / Neck Biometry: Health Program Manager 4.6 mm CM 5.7 mm Nasal bone [...] vena cava. Inferior vena cava. 3-vessel view. 0-lbmhpc-mcboyrr view. Cardiac position . Cardiac size. Cardiac [...] RECOMMENDATION We discussed the [facility] with the patient. Referred due to prominent [...] volume appeared no rmal. Romana Metzger MD [facility] US ORDERABLES documented in this encounter Visit Diagnoses Diagnosis related condition, antepartum documented in this encounter Care Teams Medical Review Specialist Relationship Specialty Start Date End Date No Ref-Primary, Physician PCP - General 01/27/22 documented as of this encounter
--- OUTSIDE RECORDS SUMMARY | 2022-05-19 16:09 | XMS_ITS | Encounter Summary ---
:1990 Author Organization [facility] Address [address] [place] [address] Care Team Providers Name Role Phone Judi Strickland APRN, C.N.P., D.N.P. Primary Care Provider Reason for Visit Reason Comments Patient Education Encounter Details Date Type Department Care Team Description 12/21/2021 Clinical Communication Department of Maris Francisco Education Infusion Therapy in [place] [facility], [address] [place], [place] [address] [facility] [address] [address] [place] [phone] Social History Tobacco Use Types Packs/Day Years [...] Education Information Discussed Covid:consent for Bebtelovimab at [facility] PLAN Disposition/Recommendation: patient transferred to the appointment desk Information/Education: patient/caller able to teach back Caller agreeable to plan of care: yes The following references were used: nursing clinical judgement and other monoclonal education Hi, my name is Carmen Francisco R.N. from [facility] with a recommendation that you receive a [...] infusions for the treatment of mild COVID-19. [facility] supports this treatment for certain people. I am happy to share with you that since August 2020 [facility] has infused over 23, 000 patients with a monoclonal antibody infusion across our [place] sites. I am sharing this because we [...] illnesses ??? Are taking any medications (prescription, uvnh-sod-xjktcen, vitamins, and herbal products) How will I [...] to treat people with COVID-19. Go to https://www.zbrow53cntzdzrrcqsxiptnapd.nih.gov/ for information on the emergency use of [...] than the risk from the treatment. The [facility] Obstetrics and Gynecology teamsupports the use of [...] has been reached. Report side effects to [employer] at www.fda.gov/medDriverSaveClub.comtch, call 0-333-KGW-6963. How can I learn more? Ask your healthcare provider ??? Visit https://www.tmbqe69tihcdfdowlfsyfueypq.nih.gov/ ??? Contact your local or state public health department Would you like to learn more about what an Emergency Use Authorization (EUA)?Yes; The [place] FDA has made these monoclonal antibody infusions available under an emergency access mechanism calledan EUA. The EUA is supported by a [place] of Health and Human Service (HHS) declaration that circumstances exist to justify the emergency use of drugs and biological products during the COVID-19 pandemic. What is the cost for this medication? The medication is provided to [facility] at no charge and there is no cost of the medication to youthe patient. Any associated costs with the infusion will be billed to the patient's insurance company. [place] does not want cost to be a [...] will be provided to patient/caregiver at the [facility]. Remote Patient Monitoring: System Calculated MASS Score: [...] the isolation and quarantine requirements outlined by [facility] health department. All isolation periods are for [...] Infection Onset Date Last Indicated Resolved Time [id number]: Symptom onset 12/21/2021 12/21/2021 5:38 AM CDT 12/18/21 documented as of this encounter Care Teams Television Mechanic Relationship Specialty Start Date End Date Judi Strickland APRN, C.N.P., D.N.P. PCP - General 07/25/[id number] [place] [phone] documented as of this encounter
--- OUTSIDE RECORDS SUMMARY | 2022-05-19 16:09 | XMS_ITS | Encounter Summary ---
:1990 Author Organization [place] Address [address] [place] [address]. [place] [address] Care Team Providers Name Role Phone Unavailable Primary Care Provider Unavailable Reason for Referral Consultation (Routine: Next available opening) - Pending Review Specialty Diagnoses / Procedures Referred By Contact Refer red To Contact Diagnoses related condition, antepartum Romana Mar MD [facility] [address] [place] [address] Fax: Referral ID Status Reason Start Date Expiration Date Visits V isits Requested Authorized [id number] Pending 01/25/2022 01/25/2023 1 1 Review Encounter Details Date Type Department Care Team Description 01/25/2022 Transcribe Orders [facility] Romana Mar, Pr egnancy related Maternal MD condition, [facility] antepartum (Primary [facility] Dx) [address] [facility] [address] [place] [address] [phone] Social History Tobacco Use Types Packs/Day Years [...]
--- OUTSIDE RECORDS SUMMARY | 2022-05-19 16:09 | XMS_ITS | Encounter Summary ---
:1990 Author Organization [place] Address [facility] [place] [address] Care Team Providers Name Role Phone No Ref-Primary, Physician Primary Care Provider [phone] Afsaneh Enciso DO Unavailable [phone] Encounter Details Date Type Department Care [...] on filedocumented in this encounter Care Teams Assistant Attorney General Relationship Specialty Start Date End Date No Ref-Primary, Physician PCP - General 01/27/22 Afsaneh Enciso DO Assigned OBGYN Provider 02/06/22 04/29/[address] [place] [address] [address] [place] [address] documented as of this encounter
--- OUTSIDE RECORDS SUMMARY | 2022-05-19 16:09 | XMS_ITS | Encounter Summary ---
:1990 Author Organization [facility] Address [address] [place] [address] Care Team Providers Name Role Phone Elsewhere, Pcp Primary Care Provider Unavailable Encounter Details Date Type Department Care Team Description 10/11/2017 Nurse Triage Department of Erica Zapata R.N. Medicine, [facility], in [place], [place] [address] [place] [address] Social History Tobacco Use Types Packs/Day Years Used Date Smoking Tobacco: Never Smokeless Tobacco: Never Sex Assigned at Date Recorded Not on file documented as of this encounter Miscellaneous Notes Telephone Encounter - Erica Huertas R.N. - 10/11/2017 1:27 PM CST Patient was provided aftercare instructions. LLIGENCE SUPPORT OFFICER documented in this encounter Plan of Treatment Not on filedocumented as of this encounter Visit Diagnoses Not on filedocumented in this encounter Care Teams Regional Airline Pilot Relationship Specialty Start Date End Date Elsewhere, Pcp PCP - General Family Medicine 09/05/17 06/26/18 documented as of this encounter
--- OUTSIDE RECORDS SUMMARY | 2022-05-19 16:09 | XMS_ITS | Encounter Summary ---
:1990 Author Organization [facility] Address [address] [place] [address] Care Team Providers Name Role Phone Judi Strickland APRN, C.N.P., D.N.P. Primary Care Provider Encounter Details Date Type Department Care Team Description 01/19/2021 Orders Only [facility] PCP [facility] Sa marshall Givens M.D. [address] [place], [place] [phone] (Wo rk) Social History Tobacco Use Types Packs/Day Years Used Date Smoking Tobacco: Never Smokeless Tobacco: Never Sex Assigned at Date Recorded Not on file documented as of this encounter Plan of Treatment Not on filedocumented as of this encounter Visit Diagnoses Not on filedocumented in this encounter Care Teams Gas Utility Worker Relationship Specialty Start Date End Date Judi Strickland APRN, C.N.P., D.N.P. PCP - General 07/25/[address] [place] [address] EMILIANO Madrigal [phone] documented as of this encounter
--- OUTSIDE RECORDS SUMMARY | 2022-05-19 16:09 | XMS_ITS | Encounter Summary ---
:1990 Author Organization [facility] Address [address] [place] [address]. [place] [address] Care Team Providers Name Role Phone Unavailable Primary Care Provider Unavailable Encounter Details Date Type Department Care Team Description 01/25/2022 Medical Correspondence [facility] Scan, MATERNAL Health Info Mgmt Non-Provider MEDICINE [facility] Srvcs PROVIDER SERVICE [address] [place] [address] [place] [address] [facility] [phone] Social History Tobacco Use Types Packs/Day Years Used Date Never Assessed Sex Assigned at Date Recorded Not on file documented as of this encounter Plan of Treatment Not on filedocumented as of this encounter Visit Diagnoses Not on filedocumented in this encounter
--- OUTSIDE RECORDS SUMMARY | 2022-05-19 16:09 | XMS_ITS | Encounter Summary ---
:1990 Author Organization [facility] Address [address] [place] [address] Care Team Providers Name Role Phone Seda Solis P.A.-C. Primary Care Provider Encounter Details Date Type Department Care Team Description 09/11/2018 Clinical Communication Department of [facility] Mary Solis [facility], [place] Cris Beard [facility], [id number] [place] [address] [phone] (Work) [phone] Social History Tobacco Use Types Packs/Day Years Used Date Smoking Tobacco: Never Smokeless Tobacco: Never Sex Assigned at Date Recorded Not on file documented as of this encounter Plan of Treatment Not on filedocumented as of this encounter Visit Diagnoses Not on filedocumented in this encounter Care Teams Food Concession Manager Relationship Specialty Start Date End Date Seda Solis P.A.-C. PCP - General Family Medicine 06/27/18 07/24/19 documented as of this encounter
--- OUTSIDE RECORDS SUMMARY | 2022-05-19 16:09 | XMS_ITS | Encounter Summary ---
:1990 Author Organization [place] Address [address] [place] [address] Care Team Providers Name Role Phone No Ref-Primary, Physician Primary Care Provider [phone] Afsaneh Enciso DO Unavailable [phone] Reason for Visit Reason Comments Ultrasound TX2-Iz-fjbowoye adrenal glan ds bilaterally Encounter Details Date Type Department Care Team Description 02/25/2022 Office Visit [facility] Jazmine Sanderson DO [address] [address] Suspected Maternal Pinky Cottrell MD [address] [place] [address] anomaly, antepartum, Medicine Center single or un specified [place] fetus (Primary Dx) [address] [place] [address] Social History Tobacco Use Types [...] Primary documented in this encounter Care Teams Microsoft Architect Relationship Specialty Start Date End Date No Ref-Primary, Physician PCP - General 01/27/22 Afsaneh Enciso DO Assigned OBGYN Provider 02/06/22 04/29/[address] [place] [address] documented as of this encounter
--- OUTSIDE RECORDS SUMMARY | 2022-05-19 16:09 | XMS_ITS | Encounter Summary ---
:1990 Author Organization [place] Address [address] [facility] [place] [address] Care Team Providers Name Role Phone No Ref-Primary, Physician Primary Care Provider [phone] Encounter Details Date Type Department Care Team Description 01/28/2022 Orders Only [facility] [place] [facility] Vilma Garcia, Warren rmal Maternal GC ultrasound (Primary Medicine Center [address] Dx) [place] [address] [place], [place] [address] [phone] (Wo rk) Social History Tobacco Use Types [...] screening documented in this encounter Care Teams Scientific Associate Relationship Specialty Start Date End Date No Ref-Primary, Physician PCP - General 01/27/22 documented as of this encounter
--- OUTSIDE RECORDS SUMMARY | 2022-05-19 16:09 | XMS_ITS | Encounter Summary ---
:1990 Author Organization [facility] Address [address] [place] [address] Care Team Providers Name Role Phone Judi Strickland APRN, C.N.P., D.N.P. Primary Care Provider Reason for Visit Reason Comments Outpatient Infusion Episode Based Medications (Routine) - Closed Specialty Diagnoses / Procedures Referred By Contact Refer red To Contact Diagnoses COVID-19 Infection Gustavo Abbott Mc[facility] Inf Surge Cacf Procedures IN INJECTION, BEBTELOVIMAB, 175MG Meron Isaac, M.P.H. [address] [place] [address] [address] [place] [phone] Referral ID Status Reason Start Date Expiration Date Visits Requ ested Visits Authorized [id number] Closed 12/21/2021 12/21/2022 1 1 Encounter Details Date Type Department Care Team Description 12/22/2021 Infusion Department of Infusion Scar COVID-19 Infection Therapy in [place] Gustavo Isaac M.D., (Primary Dx) [place], [place] M.P.H. [address] [place] [address] [address] [place] [phone] Social History Tobacco Use [...] documented in this encounter Progress Notes Alejandra Day R.N. - 12/22/2021 12:00 PM CDT Patient [...] at 1200, For 1 dose, Patient/caregiver factsheet: https://www.fda.gov/media/476811/ download Preparation: Remove vial from refrigerated storage [...] Infection Onset Date Last Indicated Resolved Time [id number]: Symptom onset 12/21/2021 12/21/2021 5:38 AM CDT 12/18/21 documented as of this encounter Care Teams Duplicator Punch Operator Relationship Specialty Start Date End Date Judi Strickland APRN, C.N.P., D.N.P. PCP - General 07/25/[address] [place] [phone] documented as of this encounter
--- OUTSIDE RECORDS SUMMARY | 2022-05-19 16:09 | XMS_ITS | Encounter Summary ---
:1990 Author Organization [facility] Address [address] [place] [address] Care Team Providers Name Role Phone Seda Solis P.A.-C. Primary Care Provider [phone] Encounter Details Date Type Department Care Team Description 02/13/2019 Nurse Triage Department of [facility], Jania Shipman R.N. Medicine, [facility], in [address] [place], [place], [place] [address] [place] [address] [place] [address] [phone] Social History Tobacco Use Types Packs/Day Years Used Date Smoking Tobacco: Never Smokeless Tobacco: Never Sex Assigned at Date Recorded Not on file documented as of this encounter Plan of Treatment Not on filedocumented as of this encounter Visit Diagnoses Not on filedocumented in this encounter Care Teams Invasive Cardiovascular Technologist Relationship Specialty Start Date End Date Seda Solis P.A.-C. PCP - General Family Medicine 06/27/18 07/24/19 documented as of this encounter
--- OUTSIDE RECORDS SUMMARY | 2022-05-19 16:09 | XMS_ITS | Encounter Summary ---
:1990 Author Organization [facility] Address [address] [place] [address] Care Team Providers Name Role Phone Elsewhere, Pcp Primary Care Provider Unavailable Reason for Visit Reason Comments Abdominal Pain Started this AM upper abdome n contracts shooting pain. Appointment Request (Routine) - Closed Specialty Diagnoses / Procedures Referred By Contact Refer red To Contact Family Medicine Referral ID Status Reason Start Date Expiration Date Visits Requ ested Visits Authorized [id number] Closed 10/11/2017 04/09/2018 1 1 Encounter Details Date Type Department Care Team Description 10/11/2017 Office Visit Department of Family Suzanne Garcia Pa in Right Upper Medicine, [place] GRIS, C.N.PAnia, [place] enriquezt (Primary Dx) Clinic, in [place] [address] [place] [phone] [phone] Social History Tobacco Use Types Packs/Day Years Used Date Smoking Tobacco: Never Smokeless Tobacco: Never Sex Assigned at Date Recorded Not on file documented as of this encounter Last Filed Vital Signs Vital Sign Reading Time Taken Comments Blood Pressure 123/75 10/11/2017 4:29 PM SHIPYARD PAINTER Pulse 100 10/11/2017 4:29 PM SHIPYARD PAINTER Temperature 37.1 ??C (98.8 ??F) 10/11/2017 4:29 PM SHIPYARD PAINTER Respiratory Rate 16 10/11/2017 4:29 PM SHIPYARD PAINTER Oxygen Saturation 100% 10/11/2017 4:29 PM SHIPYARD PAINTER Inhaled Oxygen Concentration - - Weight 78.7 kg (173 lb 8 oz) 10/11/2017 4:29 PM SHIPYARD PAINTER Height - - Body Mass Index 28 09/15/2017 11:20 AM SHIPYARD PAINTER documented in this encounter Patient Instructions Patient InstructionsSuzanne Garcia APRN, D.N.P., C.N.P. - 10/11/2017 4:45 PM CST Please schedule abdominal U/S in [place] at 9am in their urgent spot YARD PAINTER documented in this encounter Progress Notes Suzanne [...] pericholecystic fluid. Negative sonographic Marshall sign, per diesel truck mechanic. Intrahepatic ducts: Not dilated. Common duct: Not dilated. NORMAL caliber abdominal aorta. ?? IMPRESSION: Normal gallbladder ultrasound. ASSESSMENT/PLAN: #1 Pain Right Upper Quadrant Given patient's symptoms and clinical exam, I am suspicious for cholelithiasis versus cholecystitis.Blood work done today and equivocal - arranged for a semi- urgent abdominal ultrasound which will be for performed in [place] tomorrow morning (10/12/17). Abdominal U/S is negative for concerns. Suspect possible muscular strain. Recommended conservative management - koei-sft-onipsvm analgesics, ice/heat, rest. Patient is asymptomatic otherwise [...] the content. Suzanne Garcia APRN, D.N.P., C.N.P. YARD PAINTER documented in this encounter Plan of Treatment Not on filedocumented as of this encounter Procedures Procedure Name Priority Date/Time Associated Comments Diagnosis MORPHOLOGY EVALUATION Routine 10/11/2017 5:03 PM Results for this SHIPYARD PAINTER procedure are i n the results section. CBC WITH DIFFERENTIAL, Routine 10/11/2017 5:03 PM Pain Right U pper Results for this B SHIPYARD PAINTER Quadrant procedure are i n the results section. LIPASE, S/P Routine 10/11/2017 5:03 PM Pain Right Upper Resul ts for this SHIPYARD PAINTER Quadrant procedure are i n the results section. AMYLASE, TOT, S Routine 10/11/2017 5:03 PM Pain Right Upper Re sults for this SHIPYARD PAINTER Quadrant procedure are i n the results section. COMPREHENSIVE Routine 10/11/2017 5:03 PM Pain Right Upper Resu lts for this METABOLIC PANEL, S/P SHIPYARD PAINTER Quadrant procedu re are in the results section. documented in this encounter Results Morphology Evaluation (10/11/2017 5:03 PM SHIPYARD PAINTER) Analysis Performed At Patho logist Time Signature RBC Morphology Normal 10/11/2017 [facility] 7:27 PM [facility] PLT Morphology Normal 10/11/2017 [facility] 7:27 PM [facility] PLT Estimate Adequate Adequate 10/11/2017 [facility] 7:27 PM [facility] Specimen Anatomical Collection Method Collection Time Receive d Time (Source) Location / / Volume Laterality Blood 10/11/2017 5:03 PM 8 5:53 SHIPYARD PAINTER PM SHIPYARD PAINTER Suzanne Garcia APRN, Zulema.N.P., D.N.P. LAB BLOOD ADD-ON Performing Organization Address City/State/ZIP Code Phon e Number [facility]- [id number] [place] [address] [place] [facility] Lipase (10/11/2017 5:03 PM SHIPYARD PAINTER) P athologist Signature Lipase, S 34 13 - 60 U/L 10/11/2017 [facility] 5:53 PM [facility] Specimen Anatomical Collection Method Collection Time Receive d Time (Source) Location / / Volume Laterality Blood (Blood, 10/11/2017 5:03 PM 10/11/19 18 5:30 Venous) SHIPYARD PAINTER PM SHIPYARD PAINTER Oswald Campos APRNN.Jie., D.N.P. LAB BLOOD ADD-ON Performing Organization Address [facility] Phon e Number [address] [address] [place] [facility] Amylase, Total (10/11/2017 5:03 PM SHIPYARD PAINTER) P athologist Signature Amylase, Total, 44 26 - 102 10/11/2017 [facility] S U/L 5:53 PM [facility] Specimen Anatomical Collection Method Collection Time Receive d Time (Source) Location / / Volume Laterality Blood (Blood, 10/11/2017 5:03 PM 10/11/19 18 5:30 Venous) SHIPYARD PAINTER PM SHIPYARD PAINTER Oswald Campos APRNN.P., D.N.P. LAB BLOOD ADD-ON Performing Organization Address [facility] Phon e Number [address] [address] [place] [facility] (ABNORMAL) CBC with Differential (10/11/2017 5:03 PM SHIPYARD PAINTER) [facility] Method Time Signature Hemoglobin 11.2 (L) 11.6 - 10/11/2017 [facility] 15.0 g/dL 7:02 PM [facility] Hematocrit 34.4 (L) 35.5 - 10/11/2017 [facility] 44.9 % 7:02 PM [facility] Erythrocytes 5.63 (H) 3.92 - 10/11/2017 [facility] 5.13 7:02 PM [facility] x10(12)/L [facility] MCV 61.1 (L) 78.2 - 10/11/2017 [facility] 97.9 fL 7:02 PM [facility] RBC Distrib Width 14.7 12.2 - 10/11/2017 [facility] 16.1 % 7:02 PM [facility] Platelet Count 292 157 - 371 10/11/2017 [facility] x10(9)/L 7:02 PM [facility] Leukocytes 11.3 (H) 3.4 - 9.6 10/11/2017 [facility] x10(9)/L 7:02 PM [facility] Neutrophils 7.70 (H) 1.56 - 10/11/2017 [facility] 6.45 7:02 PM SHIPYARD PAINTER [facility]ALTH x10(9)/L [facility] Lymphocytes 2.95 0.95 - 10/11/2017 [facility] 3.07 7:02 PM SHIPYARD PAINTER HEALTH x10(9)/L [facility] Monocytes 0.52 0.26 - 10/11/2017 [facility] 0.81 7:02 PM SHIPYARD PAINTER HEALTH x10(9)/L [facility] Eosinophils 0.13 0.03 - 10/11/2017 [facility] 0.48 7:02 PM SHIPYARD PAINTER HEALTH x10(9)/L [facility] Basophils 0.02 0.01 - 10/11/2017 [facility] 0.08 7:02 PM SHIPYARD PAINTER HEALTH x10(9)/L [facility] Specimen Anatomical Collection Method Collection Time Receive d Time (Source) Location / / Volume Laterality Blood 10/11/2017 5:03 PM 8 7:02 SHIPYARD PAINTER PM SHIPYARD PAINTER Suzanne Garcia APRN C.N.P., D.N.P. LAB BLOOD ADD-ON Performing Organization Address City/State/ZIP Code Phon e Number [facility]- [address] [place] [phone] [place] [address] LAB CMP (Comprehensive Metabolic Panel) (10/11/2017 5:03 PM SHIPYARD PAINTER) P athologist Signature Potassium, S 4.3 3.6 - 5.2 10/11/2017 [facility] mmol/L 5:53 PM [facility] Sodium, S 140 135 - 145 10/11/2017 [facility] mmol/L 5:53 PM [facility] Chloride, S 102 98 - 107 10/11/2017 [facility] mmol/L 5:53 PM [facility] Bicarbonate, S 25 22 - 29 10/11/2017 [facility] mmol/L 5:53 PM [facility] Anion Gap 13 7 - 15 10/11/2017 [facility] 5:53 PM [facility] BUN (Blood Urea 13 6 - 21 10/11/2017 [facility] Nitrogen), S mg/dL 5:53 PM [facility] Creatinine, S 0.94 0.59 - 10/11/2017 [facility] 1.04 mg/dL 5:53 PM [facility] eGFR 85 >=60 10/11/2017 [facility] Non-Black/Afric mL/min/BSA 5:53 PM [facility] Comment: ----ADDITIONAL INFORMATION---- Estimated GFR calculated using the 2009 CKD_EPI creatinine equation. eGFR Black/ >90 >=60 mL/min/BSA 10/11/2017 5:53 PM [facility] Comment: ----ADDITIONAL INFORMATION---- Estimated GFR calculated using the 2009 CKD_EPI creatinine equation. Calcium, Total, S 9.6 8.9 - 10.1 10/11/2017 5:53 PM [facility] mg/dL [facility] Glucose, S 93 70 - 140 mg/dL 10/11/2017 5:53 PM [facility] Protein, Total, S 7.2 6.3 - 7.9 g/dL 10/11/2017 5:53 P M [facility] Albumin, S 4.5 3.5 - 5.0 g/dL 10/11/2017 5:53 PM [facility] Aspartate Aminotransferase 22 8 - 43 U/L 10/11/2017 5 :53 PM [facility] ([facility] S [facility] Alkaline Phosphatase, S 61 37 - 98 U/L 10/11/2017 5:5 3 PM [facility] Alanine Aminotransferase 25 7 - 45 U/L 10/11/2017 5:5 3 PM [facility] ([facility]), S [facility] Bilirubin, Total, S 0.5 <=1.2 mg/dL 10/11/2017 5:53 PM [facility] Specimen Anatomical Collection Method Collection Time Receive d Time (Source) Location / / Volume Laterality Blood 10/11/2017 5:03 PM 8 5:31 SHIPYARD PAINTER PM SHIPYARD PAINTER Oswald Campos APRNNAniaP., D.N.P. LAB BLOOD ADD-ON Performing Organization Address City/State/[facility] Code Phon e Number [facility]- [address] [place] [phone] [place] [facility] documented in this encounter Visit Diagnoses Diagnosis Pain Right Upper Quadrant - Primary documented in this encounter Care Teams Sports Broadcaster Relationship Specialty Start Date End Date Elsewhere, Pcp PCP - General Family Medicine 09/05/17 06/26/18 documented as of this encounter
--- OUTSIDE RECORDS SUMMARY | 2022-05-19 16:10 | XMS_ITS | Encounter Summary ---
:1990 Author Organization [facility] Address [address] [place] [address] Care Team Providers Name Role Phone Unavailable Primary Care Provider Unavailable Encounter Details Date Type Department Care Team Description 04/01/2015 Hospital Encounter HX [facility] FAMILY ME Anne-Marie Ricardo APRN, C.N.P., D. N.P. [address] [place] [phone] (Wo rk) Social History Tobacco Use [...] APRN, C.N.P. - 04/01/2015 12:25 PM CDT [id number] CHIEF COMPLAINT/REASON FOR VISIT Cough. HISTORY OF [...] GarciaNAniaPAnia/radha Electronically Signed By: ANNE-MARIE RICARDO RN, PANELBOARD ASSEMBLER On: 04/08/2015 08:24 AM Source: [facility] MHSDOLBEYNED Document Id: [id number] documented in this encounter Miscellaneous Notes Miscellaneous - Anne-Marie Ricardo APRN, C.N.P. - 04/01/2015 12:56 PM CDT Ambulatory Patient Summary [address] 24 [facility] [place] [phone] Visit Information Name: ARIS LEOS [facility] Number: [id number] Current Date: 04/01/2015 12:56:08 Physicians Attending Provider: ANNE-MARIE RICARDO RN, THERESA Primary Care Provider: ANNE-MARIE RICARDO RN, PANELBOARD ASSEMBLER ARIS LEOS has been given the following [...] day x 14 day(s) New Routed to [address] [place] [address] fexofenadine-pseudoephedrine (Keyla-D 12 Hour 60 mg-120 mg [...] if you dont have one. Go to [email or web address] and click on Create Your Account. Then, follow the directions to complete the online form. Youll be asked for your [facility] number which you can find at the top of this document. Your Goals/Additional instructions: Source: [facility] POWERCHART Document Id: [id number] Miscellaneous - Anne-Marie Ricardo APRN, C.N.P. - 04/01/2015 12:56 PM CDT Ambulatory Discharge Medication List [address] [id number] Visit Information Name: SANDRA LEOSLEY LELIA [facility] Number: [id number] Visit Date: 04/01/2015 12:56:07 Attending Provider: ANNE-MARIE RICARDO RN, PANELBOARD ASSEMBLER Primary Care Provider: ANNE-MARIE RICARDO RN, PANELBOARD ASSEMBLER DAFNEARIS has been given the following list [...] day x 14 day(s) [facility] [address] [address] fexofenadine-pseudoephedrine (Keyla-D 12 Hour 60 mg-120 mg [...] emergency. Electronically Signed By: ANNE-MARIE RICARDO RN, PANELBOARD ASSEMBLER Signed On:01-APR-2015 12:56:03 Additional Information: Source: [facility] POWERCHART Document Id: [id number] Electronically signed by Anne-Marie Ricardo, COMMUNITY SERVICE COORDINATOR, C.N.P., D.N.P. at 04/01/2015 12:56 PM CDT Miscellaneous - Dewey Duong LAniaPAniaNAnia - 04/01/2015 12:31 PM CDT Adult Manager Community Development Intake/History Adult Manager Community Development Intake/History Entered On: 04/01/2015 12:33 CDT Performed [...] 04/01/2015 12:31 CDT General Info Languages : Ivorian Is Patient Female and 13-50 no hysterectomy [...] DUONG LPN - 04/01/2015 12:31 CDT [facility] Document Id: [id number] CDT!13 documented in this encounter Plan of Treatment Not on filedocumented as of this encounter Visit Diagnoses Not on filedocumented in this encounter
--- OUTSIDE RECORDS SUMMARY | 2022-05-19 16:10 | XMS_ITS | Encounter Summary ---
:1990 Author Organization [facility] Address [address] [place] [address] Care Team Providers Name Role Phone Unavailable Primary Care Provider Unavailable Encounter Details Date Type Department Care Team Description 09/23/[address] [facility] [place] Brenna Craig, GRIS, C.N.P., D. N.P. [address] [place] [address] (Wo rk) Social History Tobacco Use Types Packs/Day Years Used Date Smoking Tobacco: Never Assessed Sex Assigned at Date Recorded Not on file documented as of this encounter Last Filed Vital Signs Vital Sign Reading Time Taken Comments Blood Pressure 106/66 09/23/2013 10:38 AM JOINT CLEANING MACHINE OPERATOR Pulse 96 09/23/2013 10:38 AM JOINT CLEANING MACHINE OPERATOR Temperature - - Respiratory Rate - - Oxygen Saturation - - Inhaled Oxygen Concentration - - Weight 82.6 kg (182 lb 1.6 oz) 09/23/2013 10:38 AM JOINT CLEANING MACHINE OPERATOR Height 166 cm (5' 5.35) 09/23/2013 10:38 AM JOINT CLEANING MACHINE OPERATOR Body Mass Index 29.98 09/23/2013 10:38 AM JOINT CLEANING MACHINE OPERATOR documented in this encounter Progress Notes Brenna Craig, Bonnie.N.P., C.N.P. - 09/23/2013 10:27 AM CST [id number] CHIEF COMPLAINT/REASON FOR VISIT Positive test. HISTORY [...] by mouth daily. She was given the [facility] What to Expect During book as she was deferred to this book for any [id number]-[id number] medication usage. I also advised that she [...] DNP, FNP On: 09/27/2013 04:31 PM Source: [facility] MHSDOLBEYNONRADSYS Document Id: [id number] T CLEANING MACHINE OPERATOR documented in this encounter Miscellaneous Notes Miscellaneous - Anastacia, Historical Provider Ser - 10/23/2013 10:39 AM JOINT CLEANING MACHINE OPERATOR General Message Document Contains Addenda Addendum by SUSHANT BRASHER V on 24 October 2013 09:10:30 JOINT CLEANING MACHINE OPERATOR pt updated Addendum by OFELIA RICARDO RN, TUTORING MANAGER on 24 October 2013 07:43:18 JOINT CLEANING MACHINE OPERATOR From: OFELIA RICARDO RN, TUTORING MANAGER To: SUSHANT BRASHER V; Sent: 10/24/2013 07:43:18 JOINT CLEANING MACHINE OPERATOR Subject: RE: General Message she can do that. From: SUSHANT BRASHER V To: OFELIA RICARDO RN, TUTORING MANAGER; Sent: 10/23/2013 10:39:00 JOINT CLEANING MACHINE OPERATOR Subject: General Message Pt was seen 09/27 by Brenna with positive test. EDC 05/28/14. Declined to share who she willbe seeing for OB. Wants your permission to dye hair using non-ammonia hair dye. Please advise Source: [facility] POWERCHART Document Id: [id number] Miscellaneous - Brenna Craig, D.N.P., C.N.P. - 09/23/2013 11:13 AM JOINT CLEANING MACHINE OPERATOR Ambulatory Depart Summary [address] [address] Visit Information Name: ARIS CRAIG LELIA [facility] Number: [id number] Visit Date: 09/23/2013 11:13:26 Attending Provider: BRENNA CRAIG DNP, BARREL TESTER AND DRAINER Primary Care Provider: OFELIA RICARDO RN, TUTORING MANAGER CRAIG, ARIS ROWELL has been given the [...] in case of emergency. Additional Information: Source: [facility] POWERCHART Document Id: [id number] T CLEANING MACHINE OPERATOR Miscellaneous - Brenna Craig D.N.P., C.N.P. - 09/23/2013 11:13 AM JOINT CLEANING MACHINE OPERATOR Ambulatory Patient Summary [address] [address] Visit Information Name: ARIS CRAIG [facility] Number: [id number] Current Date: 09/23/2013 11:13:26 Physicians Attending Provider: BRENNA CRAIG DNP, BARREL TESTER AND DRAINER Primary Care Provider: OFELIA RICARDO RN, TUTORING MANAGER ARIS CRAIG has been given the following [...] appointment detail needed. Your Goals/Additional instructions: Source: [facility] POWERCHART Document Id: [id number] T CLEANING MACHINE OPERATOR Miscellaneous - Lion Massey L.P.N. - 09/23/2013 10:48 AM CST Health Assessment Health Assessment Entered On: 09/23/2013 10:48 JOINT CLEANING MACHINE OPERATOR Performed On: 09/23/2013 10:48 JOINT CLEANING MACHINE OPERATOR by LION MASSEY LPN Health Assessment Complete Health Assessment Complete or Modified : Annual Health Assessment Annual Health Assessment Completed : Yes LION MASSEY LPN - 09/23/2013 10:48 JOINT CLEANING MACHINE OPERATOR Nutrition Nutrition Risk Factors by History Adult : None LION MASSEY LPN - 09/23/2013 10:48 JOINT CLEANING MACHINE OPERATOR Functional Current Daily Living Assistance : None LION MASSEY LPN - 09/23/2013 10:48 JOINT CLEANING MACHINE OPERATOR Dependent Habits Tobacco Use/Currently Using : No Exposure to Tobacco Smoke : Care provider denies smoking in home Smoking Status : Former smoker LION MASSEY LPN - 09/23/2013 10:48 JOINT CLEANING MACHINE OPERATOR Tobacco Use Grid Type : Cigarettes Cigarette Use Packs/Day : 0.5 Last Use : 09-20-13 LION MASSEY LPN - 09/23/2013 10:48 JOINT CLEANING MACHINE OPERATOR Caffeine Use Grid Caffeine Use : None Last Use : 09-20-13 LION MASSEY LPN - 09/23/2013 10:48 JOINT CLEANING MACHINE OPERATOR Recreational Drug Use Grid Drug Use : None LION MASSEY LPN - 09/23/2013 10:48 JOINT CLEANING MACHINE OPERATOR Psychosocial Domestic Abuse Concerns : None LION MASSEY LPN - 09/23/2013 10:48 JOINT CLEANING MACHINE OPERATOR Advance Directive Advanced Directives : No Advance Directive Additional Information : No LION MASSEY LPN - 09/23/2013 10:48 JOINT CLEANING MACHINE OPERATOR Educ Needs Learning Style Preference Adult Grid Patient : None Family : None LION MASSEY LPN - 09/23/2013 10:48 JOINT CLEANING MACHINE OPERATOR Source: [facility] POWERCHART Document Id: [id number] JOINT CLEANING MACHINE OPERATOR!33 T CLEANING MACHINE OPERATOR Miscellaneous - Lino Massey L.PAniaNAnia - 09/23/2013 10:38 AM CST Adult Spray Gun Striper Intake/History Document Has Been Updated Adult Spray Gun Striper Intake/History Entered On: 09/23/2013 10:38 JOINT CLEANING MACHINE OPERATOR Performed On: 09/23/2013 10:38 JOINT CLEANING MACHINE OPERATOR by LION MASSEY LPN Intake Chief Complaint [...] kg/m2 LION MASSEY LPN - 09/23/2013 10:41 JOINT CLEANING MACHINE OPERATOR Weight Source : Standing scale LION MASSEY LPN - 09/23/2013 10:38 JOINT CLEANING MACHINE OPERATOR General Info Information Given By : Patient Languages : Hungarian LION MASSEY LPN - 09/23/2013 10:38 JOINT CLEANING MACHINE OPERATOR Subjective Pain Symptoms : No LION MASSEY LPN - 09/23/2013 10:38 JOINT CLEANING MACHINE OPERATOR Dependent Habits Alcohol Use : No LION MASSEY LPN - 09/23/2013 10:41 JOINT CLEANING MACHINE OPERATOR Tobacco Use/Currently Using : No Tobacco Use/Last 12 months : No Tobacco Use/Advised to Quit : No Exposure to Tobacco Smoke : Care provider denies smoking in home Smoking Status : Former smoker LION MASSEY LPN - 09/23/2013 10:38 JOINT CLEANING MACHINE OPERATOR LION MASSEY LPN - 09/23/2013 10:38 JOINT CLEANING MACHINE OPERATOR Tobacco Use Grid Type : Cigarettes Cigarette Use Packs/Day : 0.5 Last Use : 09-20-13 LION MASSEY [facility] - 09/23/2013 10:41 JOINT CLEANING MACHINE OPERATOR Caffeine Use Grid Caffeine Use : None Type : Frequency : Amount : Last Use : 09-20-13 LION MASSEY Mary [facility] - 09/23/2013 10:41 JOINT CLEANING MACHINE OPERATOR Recreational Drug Use Grid Drug Use : None LION MASSEY Mary [facility] - 09/23/2013 10:38 JOINT CLEANING MACHINE OPERATOR Source: [facility] POWERCHART Document Id: [id number] JOINT CLEANING MACHINE OPERATOR!45 T CLEANING MACHINE OPERATOR documented in this encounter Plan of Treatment Not on filedocumented as of this encounter Procedures Procedure Name Priority Date/Time Associated Diagnosis Comme nts TEST, U Routine 09/23/2013 10:46 AM Res ults for this JOINT CLEANING MACHINE OPERATOR procedure are i n the results section. documented in this encounter Results Test, Qualitative, Urine (09/23/2013 10:46 AM JOINT CLEANING MACHINE OPERATOR) [facility] gist Method Time Signature HXBeta-hCG Positive POWERCHART Qualitative Urine Specimen (Source) Anatomical Collection Method Collection Time Re ceived Time Location / / Volume Laterality Urine 09/23/2013 10:46 AM JOINT CLEANING MACHINE OPERATOR Brenna Craig APRN, C.N.P., D.N.P. LAB URINE EPI VO Performing Organization Address City/State/ZIP Code Phon e Number POWERCHART documented in this encounter Visit Diagnoses Not on filedocumented in this encounter
--- OUTSIDE RECORDS SUMMARY | 2022-05-19 16:10 | XMS_ITS | Encounter Summary ---
:1990 Author Organization [facility] Address [address] [place] [address] Care Team Providers Name Role Phone Unavailable Primary Care Provider Unavailable Encounter Details Date Type Department Care Team Description 01/27/2011 Hospital Encounter [facility] Deedee Bobby, GRIS, C.N.P., D.N.P. [address] [place], [place] [phone] (Wo rk) Social History Tobacco Use Types Packs/Day Years Used Date Smoking Tobacco: Never Assessed Sex Assigned at Date Recorded Not on file documented as of this encounter Plan of Treatment Not on filedocumented as of this encounter Visit Diagnoses Not on filedocumented in this encounter
--- OUTSIDE RECORDS SUMMARY | 2022-05-19 16:10 | XMS_ITS | Encounter Summary ---
:[address] [facility] Address [address] [place] [address] Care Team Providers Name Role Phone Unavailable Primary Care Provider Unavailable Encounter Details Date Type Department Care Team Description 12/23/[address] [facility] [place] Nayeli Campos M.D. [address] [place] [address] (Wo rk) Social History Tobacco Use [...] Body Mass Index 28.89 09/23/2013 10:38 AM MILL SUPERVISOR documented in this encounter Progress Notes Nayeli Koenig M.D. - 12/23/2013 6:50 AM CDT [id number] CHIEF COMPLAINT/REASON FOR VISIT Sore throat. HISTORY [...] expressed understanding of the content Nayeli Washington M.D./[facility] Electronically Signed By: NAYELI DICKERSON MD On: 01/04/2014 08:50 PM Modified by and Electronically Signed by: NAYELI DICKERSON MD On: 01/04/2014 08:50 PM Source: [facility] MHSDOLBEYNONRADSYS Document Id: [id number] documented in this encounter Miscellaneous Notes Miscellaneous - Nayeli Koenig M.D. - 12/23/2013 7:30 AM CDT Ambulatory Patient Summary [facility] [address] [facility] [place] [id number] Visit Information Name: ARIS LEOS [facility] Number: [id number] Current Date: 12/23/2013 07:30:58 Physicians Attending Provider: NAYELI DICKERSON MD Primary Care Provider: OFELIA RICARDO RN, DEPARTMENT HEAD ARIS LEOS has been given the following [...] appointment detail needed. Your Goals/Additional instructions: Source: [facility] POWERCHART Document Id: [id number] Miscellaneous - Nayeli Koenig M.D. - 12/23/2013 7:30 AM CDT Ambulatory Discharge Medication List [facility] [address] [facility] [place] [phone] Visit Information Name: ARIS LEOS [facility] Number: [id number] Visit Date: 12/23/2013 07:30:57 Attending Provider: NAYELI DICKERSON MD Primary Care Provider: OFELIA RICARDO RN, DEPARTMENT HEAD ARIS LEOS has been given the following [...] in case of emergency. Additional Information: Source: [facility] POWERCHART Document Id: [id number] Miscellaneous - Hardik Galvan, L.P.N. - 12/23/2013 7:00 AM CDT Adult Pediatric Dermatologist Intake/History Adult Pediatric Dermatologist Intake/History Entered On: 12/23/2013 7:06 CDT Performed On: 12/23/2013 7:00 CDT by HARDIK GALVAN BIOFUELS PROCESSING TECHNICIAN, RT Intake Chief Complaint : Concerned about [...] Preferred Communication Mode : Verbal Languages : Greek HARDIK GALVAN LPN, 12/23/2013 7:00 CDT Subjective [...] Use Grid Drug Use : None HARDIK GALAVN LPN, 12/23/2013 7:00 CDT [facility] Document Id: [id number]!43 documented in this encounter Plan of [...] Strep A Screen (12/23/2013 7:13 AM CDT) [facility] FAZUA Method Time Signature HXRapid Strep POWERCHART Confirmation HXPre Negative for POWERCHART Group A Strep by culture. HXFinal Negative for POWERCHART Group A Strep by culture. Specimen Anatomical Collection Method Collection Time Receive d Time (Source) Location / / Volume Laterality Throat 12/23/2013 7:13 AM 4 7:13 CDT AM CDT Nayeli Jarrett M.D. LAB MICROBIOLOGY - GENE RAL ORDERABLES Performing Organization Address City/[facility] Code Phon e Number POWERCHART Rapid Strep A Screen (12/23/2013 7:13 AM CDT) [facility] FAZUA Method Time Signature HXStrep A POWERCHART Screen [...]
--- OUTSIDE RECORDS SUMMARY | 2022-05-19 16:10 | XMS_ITS | Encounter Summary ---
:1990 Author Organization [facility] Address [address] [place] [address] Care Team Providers Name Role Phone Unavailable Primary Care Provider Unavailable Encounter Details Date Type Department Care Team Description 05/09/2012 Hospital Encounter HX [facility] ED Christiano José M.D. [address] [place] [address] [place] [phone] (Wo rk) Social History Tobacco Use Types [...] 05/09/2012 3:38 PM CDT ED Discharge Instructions [facility] [address] [place] [address] Name: ARIS LEOS Date of : 1990 12:00 AM Visit Date: 05/09/2012 12:29 PM Address: [address] [place] [address] [facility] [id number] Primary Care Provider: OFELIA RICARDO RN, TELEGRAPHIC TYPEWRITER MECHANIC IMPORTANT: [facility] in [place] would like to thank you for allowing [...] Comments: With: Address: When: OFELIA RICARDO [address] [place] [address] [facility] (1pbsi Within As Needed Comments: With: Address: When: [...] arrange a ride home with a responsible democrat. IDAFNE HAYLEY ANNE , or responsible democrat have received this information and my questions have been answered. I have discussed any challenges I see with this plan with the nurse or physician. Patient Signature or Responsible Republican/Relationship Date/Time Provider Signature Date/Time Medication Reconciliation: Reconciliation [...] arrange a ride home with a responsible democrat. DAFNE Barroso HAYLEY ANNE , or responsible democrat have received this information and my questions have been answered. I have discussed any challenges I see with this plan with the nurse or physician. Patient Signature or Responsible Republican/Relationship Date/Time Provider Signature Date/Time Source: [facility] POWERCHART Document Id: [id number] Juliette Gerardo R.N. - 05/09/2012 3:38 PM CDT ED Depart Summary [facility] Emergency Department Clinical Discharge Summary PERSON INFORMATION Name ARIS LEOS Age 21 Years 1990 12:00 AM Sex Female Language Sierra Leonean PCP OFELIA RICARDO RN, TELEGRAPHIC TYPEWRITER MECHANIC Marital Status Single N [id number] Visit Id Visit Reason throat burn, sob Specialty Enc Type Emergency Med Service Emergency Medicine Referred by Track Group [facility] ED Discharge 05/09/2012 1:00 PM Tracking Id [id number] Checkout 05/09/2012 1:00 PM Checkin 05/09/2012 12:29 PM Acuity Dispo Type * Discharged to Home or Self Care Arrival 05/09/2012 12:29 PM Reg Status LOS 000 00:31 Address: [address] [place] [phone] Comment: PROVIDER INFORMATION Provider Role Provider Contact Time IZABELLA BARRON MD ED Provider 05/09/12 12:54 JULIETTE GERARDO UTILITY BILL COLLECTOR Nurse 05/09/12 14:02 DIAGNOSIS Respiratory problem; Dyspnea [...] Comments: With: Address: When: OFELIA RICARDO [address] [place], [place] [phone] Business (1) Within As Needed Comments: With: Address: When: No work for rest of the day today Within As Needed Comments: Source: [facility] Streamup Document Id: [id number] documented in this encounter Nursing Notes Juliette Gerardo R.N. - 05/09/2012 3:37 PM CDT ED Pain Assessment ED Pain Assessment Entered On: 05/09/2012 15:37 CDT Performed On: 05/09/2012 15:37 CDT by JULIETTE GERARDO RN Pain Assessment Pain Symptoms : No JULIETTE GERARDO RN - 05/09/2012 15:37 CDT Source: [facility] Streamup Document Id: [id number] Juliette Gerardo R.N. - 05/09/2012 12:58 PM CDT Poison control advice Poison control contacted and recommended observe for fever and productive cough and to report back to DRAnia Source: [facility] Streamup Document Id: [id number] Juliette Gerardo R.N. - 05/09/2012 12:55 PM CDT ED Primary Assessment ED Primary Assessment Entered On: 05/09/2012 12:57 CDT Performed On: 05/09/2012 12:55 CDT by JULIETTE GERARDO RN Reason For Visit Problems(Active) Iron deficiency anemia Name of Problem: Iron deficiency anemia ; Onset Date: 06/28/2010 ; Recorder: BRENNA CRAIG DNP, FNP; Confirmation: Confirmed ; Classification: Medical ; Code: 735274 ; Contributor System: LoveSpace ; Last Updated: 02/15/2011 11:49 CDT ; [...] Code:PNED ; Probability: 0 ; Diagnosis Code: [id number] Triage Chief Complaint Description : see triage note Information Given By : Patient Accompanied By : Mother, Sibling Mode of Arrival ED : Private vehicle Track : Medical Languages : Sierra Leonean JULIETTE GERARDO RN - 05/09/2012 12:55 CDT [...] GERARDO RN - 05/09/2012 12:55 CDT Source: [employer] Document Id: [id number] documented in this encounter ED Notes Juliette Gerardo R.N. - 05/09/2012 3:37 PM CDT ED Disposition Summary ED Disposition Summary Entered On: 05/09/2012 15:37 CDT Performed On: 05/09/2012 15:37 CDT by JULIETTE GERARDO UTILITY BILL COLLECTOR Disposition Summary Accompanied By : Mother Mode of Discharge : Ambulatory Transportation : Private vehicle Printed Discharge Instructions Given to Patient : Yes Patient Status at Discharge from ED : Improved JULIETTE GERARDO RN - 05/09/2012 15:37 CDT Source: [employer] Document Id: [id number] Izabella Barron M.D. - 05/09/2012 12:55 PM CDT Respiratory problem Patient: ARIS LEOS Age: 21 years Sex: Female : [...] . All Problems Iron deficiency anemia / [id number] / Confirmed Tinea pedis / 110.4 / [...] BARRON MD On: 05/09/2012 02:26 PM [facility] Document Id: [id number]} Juliette Gerardo R.N. - 05/09/2012 12:45 PM CDT ED Triage Assessment ED Triage Assessment Entered On: 05/09/2012 12:55 CDT Performed On: 05/09/2012 12:45 CDT by JULIETTE GERARDO RN Reason For Visit Problems(Active) Iron deficiency anemia Name of Problem: Iron deficiency anemia ; Onset Date: 06/28/2010 ; Recorder: BRENNA CRAIG DNP, CORRECTIONS SERGEANT; Confirmation: Confirmed ; Classification: Medical ; Code: 477792 ; Contributor System: PowerChart ; Last Updated: 02/15/2011 11:49 CDT ; Life Cycle Date: 02/15/2011 ; Life Cycle Status: Active ; Responsible Provider: BRENNA CRAIG DNP, CORRECTIONS SERGEANT; Vocabulary: SNOMED CT Tinea pedis Name of [...] PNED ; Probability: 0 ; Diagnosis Code: [id number] Triage Chief Complaint Description : States at [...] Private vehicle Track : Medical Languages : Sierra Leonean Vital Signs Assessed : Yes JULIETTE GERARDO [...] GERARDO RN - 05/09/2012 12:45 CDT Source: [employer] Document Id: [id number] documented in this encounter Miscellaneous Notes Miscellaneous [...] GERARDO RN - 05/09/2012 15:37 CDT Source: [employer] Document Id: [id number] Miscellaneous - Juliette Gerardo R.N. - 05/09/2012 12:29 PM CDT Facility Charge Ticket Facility Charge Ticket Entered On: 05/09/2012 15:38 CDT Performed On: 05/09/2012 12:29 CDT by JULIETTE GERARDO RN Facility Charge TVL Level for Facility Charge Ticket : Level 3 Lynx Total Points with Diagnosis Control : 5 Lynx Visit Level : 62890 Level 3 ANIA LINDER - 05/23/2012 15:05 [...] Facility Charge Ticket Dx : Level 5 NAIA LINDER - 05/23/2012 15:05 CDT [facility] Document Id: [id number] documented in this encounter Plan of Treatment Not on filedocumented as of this encounter Visit Diagnoses Not on filedocumented in this encounter
--- OUTSIDE RECORDS SUMMARY | 2022-05-19 16:10 | XMS_ITS | Encounter Summary ---
:1990 Author Organization [facility] Address [address] [place] [address] Care Team Providers Name Role Phone Unavailable Primary Care Provider Unavailable Encounter Details Date Type Department Care Team Description 08/09/2011 Hospital Encounter HX [facility] [place] Anne-Marie Roland, GRIS, C.N.P., D. N.P. [address] [place] [address] (Wo rk) Social History Tobacco Use Types Packs/Day Years Used Date Smoking Tobacco: Never Assessed Sex Assigned at Date Recorded Not on file documented as of this encounter Procedure Notes Cathleen Massey, L.P.N. - 08/09/2011 3:50 PM CST Depo-Provera Administration Depo-Provera Administration Entered On: 08/09/2011 15:50 MANUFACTURING CHIEF ENGINEER Performed On: 08/09/2011 15:50 MANUFACTURING CHIEF ENGINEER by CATHLEEN MASSEY LPN Depo-Provera Administration Annual Exam in the Past 12 Months : Yes Last Depo-Provera Given : 05/10/2011 CDT Needs test : No CATHLEEN MASSEY LPN - 08/09/2011 15:50 MANUFACTURING CHIEF ENGINEER Source: [facility] POWERCHART Document Id: [id number] MANUFACTURING CHIEF ENGINEER!5 FACTURING CHIEF ENGINEER documented in this encounter Plan of Treatment Not on filedocumented as of this encounter Visit Diagnoses Not on filedocumented in this encounter
--- OUTSIDE RECORDS SUMMARY | 2022-05-19 16:10 | XMS_ITS | Encounter Summary ---
:1990 Author Organization [facility] Address [address] [place] [address] Care Team Providers Name Role Phone Unavailable Primary Care Provider Unavailable Encounter Details Date Type Department Care Team Description 06/03/2015 Hospital Encounter HX [facility] [place] Anne-Marie Ricardo APRN, C.N.P., D. N.P. [address] [place] [phone] (Wo rk) Social History Tobacco Use [...] APRN, C.N.P. - 06/03/2015 7:36 AM CDT [id number] CHIEF COMPLAINT/REASON FOR VISIT Sore throat. HISTORY [...] RN, CNP On: 06/10/2015 07:48 AM Source: [facility] MHSDOLBEYNONRADSYS Document Id: [id number] documented in this encounter Miscellaneous Notes Miscellaneous - Anne-Marie Ricardo APRN, C.N.P. - 06/03/2015 8:23 AM CDT Ambulatory Patient Summary [address] [place] [id number] Visit Information Name: ARIS LEOS [facility] Number: [id number] Current Date: 06/03/2015 08:23:04 Physicians Attending Provider: ANNE-MARIE RICARDO RN, RELAY DISPATCHER Primary Care Provider: ANNE-MARIE RICARDO RN, RELAY DISPATCHER ARIS LEOS LELIA has been given the [...] day x 10 day(s) New Routed to [address] [address] Stop Taking the Following Medications: Medication list [...] emergency. Electronically Signed By: ANNE-MARIE RICARDO RN, RELAY DISPATCHER Signed On:03-JUN-2015 08:19:31 Your Allergies & Intolerances [...] if you dont have one. [facility] to [email or web address] and click on Create Your Account. Then, follow the directions to complete the online form. Youll be asked for your [facility] number which you can find at the top of this document. Your Goals/Additional instructions: Source: [facility] POWERCHART Document Id: [id number] Shashank - Anne-Marie Ricardo APRN, Zulema.N.P. - 06/03/2015 8:23 AM CDT Ambulatory Discharge Medication List [address] [id number] Visit Information Name: ARIS LEOS [facility] Number: [id number] Visit Date: 06/03/2015 08:23:03 Attending [...] day x 10 day(s) New Routed to [address] [place] [address] Stop Taking the Following Medications: Medication list [...] THERESA Signed On:03-JUN-2015 08:19:31 Additional Information: Source: [facility] POWERCHART Document Id: [id number] Miscellaneous - Dewey Duong L.P.N. - 06/03/2015 7:39 AM CDT Adult Pony Rougher Intake/History Adult Pony Rougher Intake/History Entered On: 06/03/2015 7:43 CDT Performed [...] 06/03/2015 7:39 CDT General Info Languages : Azeri Is Patient Female and 13-50 no hysterectomy [...] Grid Drug Use : None DEWEY DUONG JEWELRY POLISHER - 06/03/2015 7:39 CDT Source: [facility] POWERCHART Document Id: [id number] CDT!47 documented in this encounter Plan of Treatment Not on filedocumented as of this encounter Procedures Procedure Name Priority Date/Time Associated Diagnosis Comme nts RAPID STREP A Routine 06/03/2015 7:50 AM Results for this SCREEN CDT procedure are i n the results section. documented in this encounter Results (ABNORMAL) Rapid Strep A Screen (06/03/2015 7:50 AM CDT) [facility] Method Time Signature HXStrep A (POSITIVE) [...]
--- OUTSIDE RECORDS SUMMARY | 2022-05-19 16:10 | XMS_ITS | Encounter Summary ---
:1990 Author Organization [facility] Address [address] [place] [address] Care Team Providers Name Role Phone Unavailable Primary Care Provider Unavailable Encounter Details Date Type Department Care Team Description 10/27/2011 Hospital Encounter HX [facility] [place] Brenna Craig, GRIS, C.N.P., D. N.P. [address] [place] [address] (Wo rk) Social History Tobacco Use Types Packs/Day Years Used Date Smoking Tobacco: Never Assessed Sex Assigned at Date Recorded Not on file documented as of this encounter Last Filed Vital Signs Vital Sign Reading Time Taken Comments Blood Pressure 100/70 10/27/2011 1:55 PM VALVE TESTER Pulse 120 10/27/2011 1:55 PM VALVE TESTER Temperature - - Respiratory Rate 20 10/27/2011 1:40 PM VALVE TESTER Oxygen Saturation - - Inhaled Oxygen Concentration - - Weight 74.8 kg (164 lb 14.5 oz) 10/27/2011 1:40 PM VALVE TESTER Height - - Body Mass Index - - documented in this encounter Progress Notes Brenna Craig, D.N.P., C.N.P. - 10/27/2011 12:00 AM CST [id number] CHIEF COMPLAINT/REASON FOR VISIT Nasal congestion. HISTORY OF PRESENT ILLNESS The patient is a 21-year-old female who presents to the clinic today with some nasal congestion that has been present now for the past 4-5 days duration. She does report that today she is feeling a little bit better. She reports that she is not currently taking anything lpze-ldk-mewivlc to help with the symptoms and also [...] and reactive to light and accommodation OROPHARYNX: [place] and moist. TM's: Bilateral tympanic membranes are [...] DNP, FNP On: 10/31/2011 05:13 PM Source: [facility] JEFERSONSDOLBESARAH Document Id: [id number] E TESTER documented in this encounter Procedure Notes Jabier Castaneda L.P.NAnia - 10/27/2011 1:55 PM CST Depo-Provera Administration Depo-Provera Administration Entered On: 10/27/2011 13:56 VALVE TESTER Performed On: 10/27/2011 13:55 VALVE TESTER by JABIER CASTANEDA LPN Depo-Provera Administration Annual Exam in the Past 12 Months : Yes Last Depo-Provera Given : 08/09/2011 VALVE TESTER Return appointment : 01/10/2012 CDT Needs test : No JABIER CASTANEDA LPN - 10/27/2011 13:55 VALVE TESTER Vitals/Ht/Wt Peripheral Pulse Rate : 120/min (HI) Systolic Blood Pressure : 100mmHg Diastolic Blood Pressure : 70mmHg NIBP Mean : 80mmHg BP Location : Left upper extremity Blood Pressure Cuff Size : Regular JABIER CASTANEDA LPN - 10/27/2011 13:55 VALVE TESTER Source: [facility] POWERCHART Document Id: [id number] VALVE TESTER!13 E TESTER documented in this encounter Miscellaneous Notes Miscellaneous - Brenna Craig, JameN.P., C.N.P. - 10/27/2011 1:57 PM VALVE TESTER Ambulatory Patient Summary [id number] [place] [address] Visit Information Name: ARIS LEOS Current Date: 10/27/2011 13:57:44 Primary Care Provider: OFELIA RICARDO RN, INTERNAL GRINDER Your Medications Here is a list of [...] No Appointments found Your Goals/Additional instructions: Source: [employer] Document Id: [id number] E TESTER Miscellaneous - Brenna Craig, Bonnie.N.P., C.N.P. - 10/27/2011 1:57 PM VALVE TESTER Ambulatory Depart Summary [address] [id number] Visit Information Name: DAFNEARIS Current Date: 10/27/2011 13:57:43 Attending Provider: BRENNA CRAIG DNP, LAB REP Primary Care Provider: OFELIA RICARDO RN, INTERNAL GRINDER DAFNE ARIS LELIA has been given the [...] to the patient and/or family, guardian/caregiver. Source: [employer] Document Id: [id number] E TESTER Miscellaneous - Jabier Castaneda L.P.N. - 10/27/2011 1:40 PM CST Adult Baker Intake/History Adult Baker Intake/History Entered On: 10/27/2011 13:43 VALVE TESTER Performed On: 10/27/2011 13:40 VALVE TESTER by JABIER CASTANEDA LPN Intake Chief Complaint [...] 74.80kg JABIER CASTANEDA LPN - 10/27/2011 13:40 VALVE TESTER Subjective Pain Symptoms : No JABIER CASTANEDA LPN - 10/27/2011 13:40 VALVE TESTER Dependent Habits Tobacco Use/Currently Using : Yes Exposure to Tobacco Smoke : Patient smokes Smoking Status : Smoker JABIER CASTANEDA LPN - 10/27/2011 13:40 VALVE TESTER Tobacco Use Grid Type : Cigarettes Cigarette Use Packs/Day : 0.5 Last Use : 10 min ago JABIER CASTANEDA LPN - 10/27/2011 13:40 VALVE TESTER Caffeine Use Grid Caffeine Use : Current Type : Soft drinks Frequency : Weekly Amount : 2 cans Last Use : 11am JABIER CASTANEDA LPN - 10/27/2011 13:40 VALVE TESTER Recreational Drug Use Grid Drug Use : None JABIER CASTANEDA LPN - 10/27/2011 13:40 VALVE TESTER Allergy Allergies (Active) NKA Estimated Onset Date: Unspecified ; Created By: CATHLEEN KURTZ LPN; Reaction Status: Active ;Category: Drug ; Substance: NKA ; Type: Allergy ; Updated By: CATHLEEN KURTZ LPN; Reviewed Date: 10/27/2011 13:39 VALVE TESTER Source: [facility] POWERCHART Document Id: [id number] VALVE TESTER!36 E TESTER documented in this encounter Plan of Treatment Not on filedocumented as of this encounter Visit Diagnoses Not on filedocumented in this encounter
--- OUTSIDE RECORDS SUMMARY | 2022-05-19 16:10 | XMS_ITS | Encounter Summary ---
:1990 Author Organization [facility] Address [address] [place] [address] Care Team Providers Name Role Phone Unavailable Primary Care Provider Unavailable Encounter Details Date Type Department Care Team Description 12/14/2016 Hospital Encounter HX [facility] [place] Sandra Bare APRN, C.N.P., D. N.P. [address] [place] [phone] (Wo rk) Social History Tobacco Use [...] No itching. She reports trying Boil Ease tgud-vyi-rlgdvsw, without any improvement of symptoms. She is [...] # 21 cap(s), 0 Refill(s), Acute, Pharmacy: [facility] Est Pt Level 3 - 92878 - 15 min 2. Tachycardia NOS Stable. [...] C.N.P., JameN.P On: 12/14/2016 01:49 PM [facility] Document Id: [id number] documented in this encounter Miscellaneous Notes Telephone [...] From: SUZANNE BAER APRN, C.NAniaPAnia, D.N.P To: [place] [facility] Nurse Mayra; Sent: 12/14/2016 14:42:25 CDT Subject: RE: *Phone Message Keflex suspension was sent to [address] 3x/day for 7 days. Thanks. Addendum by TAVIA SAL LPN on December 14, 2016 14:23:06 CDT From: TAVIA SAL LPN ([place] [facility] Nurse Mayra) To: SUZANNE BAER APRN, C.N.P., D.N.P; Sent: 12/14/2016 14:23:06 CDT Subject: FW: *Phone Message Addendum by TAVIA SAL LPN on December 14, 2016 14:22:54 CDT please advise on change of medication. From: KENNETH BROWER To: [place] [facility] Nurse Mayra; Sent: 12/14/2016 14:19:32 [...] (howto dispose of them properly.) Return number: [phone] Message: Advice/Action: Source used: ( ) Verbalizes [...] back cell phone number ( ) Source: [facility] [place] Document Id: [id number] Miscellaneous - Suzanne Baer APRN, C.N.P., D.N.P. - 12/14/2016 1:32 PM CDT Ambulatory Discharge Medication List [address] [id number] Visit Information Name: ARIS LEOS [facility] Number: [id number] Current Date: 12/14/2016 13:32:16 Attending [...] x 7 day(s) cellulitis New Routed to [address] [place] [address] Stop Taking the Following Medications: Medication list [...] D.N.P Signed On:14-DEC-2016 13:32:14 Additional Information: Source: [facility] POWERCHART Document Id: [id number] Miscellaneous - Suzanne Baer APRN, C.N.Jie., D.N.P. - 12/14/2016 1:32 PM CDT Ambulatory Patient Summary [address] [place] [id number] Visit Information Name: ARIS LEOS [facility] Number: [id number] Current Date: 12/14/2016 13:32:17 Physicians [...] x 7 day(s) cellulitis New Routed to [address] [address] Stop Taking the Following Medications: Medication list [...] if you dont have one. Go to [email or web address] and click on Create Your Account. Then, follow the directions to complete the online form. Youll be asked for your [facility] number which you can find at the top of this document. Your Goals/Additional instructions: Source: [facility] POWERCHART Document Id: [id number] Miscellaneous - Tavia Sal L.P.N. - 12/14/2016 1:14 PM CDT Adult Carpenter Assembler Intake/History Adult Carpenter Assembler Intake/History Entered On: 12/14/2016 13:18 CDT Performed [...] 12/14/2016 13:14 CDT General Info Languages : Mauritanian Is Patient Female and 13-50 no hysterectomy [...] Drug Use Grid Drug Use : None ATVIA SAL LPN - 12/14/2016 13:14 CDT Source: [facility] Document Id: [id number] CDT!44 documented in this encounter Plan of Treatment Not on filedocumented as of this encounter Visit Diagnoses Not on filedocumented in this encounter
--- OUTSIDE RECORDS SUMMARY | 2022-05-19 16:10 | XMS_ITS | Encounter Summary ---
:1990 Author Organization [facility] Address [address] [place] [address] Care Team Providers Name Role Phone Unavailable Primary Care Provider Unavailable Encounter Details Date Type Department Care Team Description 06/24/2016 Hospital Encounter HX [facility] [place] Isabela Solis, P.A.-C. [address] [place], [place] [phone] (Wo rk) Social History Tobacco Use Types [...] GUSTAFSON P.A.-C. On: 06/27/2016 01:37 PM Source: [employer] Document Id: [id number] documented in this encounter Miscellaneous Notes Miscellaneous - Dewey Duong L.P.N. - 06/24/2016 4:04 PM CDT Adult Credit Rating Checker Intake/History Adult Credit Rating Checker Intake/History Entered On: 06/24/2016 16:08 CDT Performed [...] 06/24/2016 16:04 CDT General Info Languages : Anguillan Is Patient Female and 13-50 no hysterectomy [...] DUONG LPN - 06/24/2016 16:04 CDT Source: [facility] POWERCHART Document Id: [id number] CDT!39 documented in this encounter Plan of Treatment Not on filedocumented as of this encounter Visit Diagnoses Not on filedocumented in this encounter
--- OUTSIDE RECORDS SUMMARY | 2022-05-19 16:10 | XMS_ITS | Encounter Summary ---
:1990 Author Organization [facility] Address [address] [place] [address] Care Team Providers Name Role Phone Unavailable Primary Care Provider Unavailable Encounter Details Date Type Department Care Team Description 05/10/2011 Hospital Encounter HX [facility] Deedee Bobby, GRIS, C.N.P., D. N.P. [address] [place] [address] (Wo rk) Social History Tobacco [...] MALDONADO LPN - 05/10/2011 10:01 CDT Source: [facility] POWERCHART Document Id: [id number] CDT!5 documented in this encounter Plan of Treatment Not on filedocumented as of this encounter Visit Diagnoses Not on filedocumented in this encounter
--- OUTSIDE RECORDS SUMMARY | 2022-05-19 16:10 | XMS_ITS | Encounter Summary ---
:1990 Author Organization [facility] Address [address] [place] [address] Care Team Providers Name Role Phone Unavailable Primary Care Provider Unavailable Encounter Details Date Type Department Care Team Description 09/20/2015 Hospital Encounter HX NO MAPPING Jovi Alvarado P.A.-C., M.S. [address] [place], [place] [phone] (Wo rk) Social History Tobacco Use Types Packs/Day Years Used Date Smoking Tobacco: Never Assessed Sex Assigned at Date Recorded Not on file documented as of this encounter Last Filed Vital Signs Vital Sign Reading Time Taken Comments Blood Pressure 124/75 09/20/2015 3:00 PM CAREER DEVELOPMENT COORDINATOR Pulse 104 09/20/2015 3:00 PM CAREER DEVELOPMENT COORDINATOR Temperature - - Respiratory Rate - - Oxygen Saturation - - Inhaled Oxygen Concentration - - Weight - - Height 166 cm (5' 5.35) 09/20/2015 3:00 PM CAREER DEVELOPMENT COORDINATOR Body Mass Index - - documented in this encounter Discharge Summaries Suzanne Riley, L.P.N. - 09/20/2015 3:26 PM CST ED Discharge Instructions [facility] [address] [place] [address]. [place] [address] Name: ARIS FELIX Date of : 1990 12:00 AM Visit Date: 09/20/2015 2:21 PM [facility] Number: [id number] Address: [address] [facility] [address] Primary Care Provider: NICOLE SANTANA MD IMPORTANT: [facility] in [place] would like to thank you for allowing us to assist you with your healthcare needs. The following includes patient education materials and information regarding your injury/illness. Diagnosis: Bronchitis Acute; Sinusitis Acute NOS Follow-Up Instructions: With: Address: When: NICOLE MATTHEWPOOJADAVID [address] [place] [address] Business (1) Within As Needed Your Upcoming [...] will help loosen secretions in the lungs. [id number]-[id number] cough medicines that contain dextromethorphan (such as [...] ear pain or a stiff neck ?? [phone] [facility], [address] [place] [address]. All rights reserved. This information is not [...] if you dont have one. Go to [email or web address] and click on Create Your Account. Then, follow the directions to complete the online form. Youll be asked for your [facility] number which you can find at [...] nurse or physician. Patient Signature or Responsible Libertarian/Relationship Date Time Provider Signature Date Time IMPORTANT: [...] responsible green party. DAFNE Barroso HAYLEY ANNE or responsible green party have received this information and my questions have been answered. I have discussed any challenges I see with this plan with the nurse or physician. Patient Signature or Responsible Libertarian/Relationship Date Time Provider Signature Date Time This document has images extracted. Please consider using [employer] for all your patient education needs. Source: [facility] POWERCHART Document Id: [id number] ER DEVELOPMENT COORDINATOR Suzanne Riley L.P.N. - 09/20/2015 3:26 PM CST ED Depart Summary [facility] Emergency Department Clinical Discharge Summary PERSON INFORMATION Name ARIS FELIX Age 24 Years 1990 12:00 AM Sex Female Language Lithuanian PCP NICOLE SANTANA MD Marital Status Single N [id number] Visit Id Visit Reason UC - Cough; cough Specialty Enc Type [facility] Outpatient Med Service Urgent Care Referred by Track Group [facility] ED Discharge 09/20/2015 3:25 PM Tracking Id [id number] Checkout 09/20/2015 3:25 PM Checkin 09/20/2015 2:21 PM Acuity 4 -Less Urgent Dispo Type * Discharged to Home or Self Care Arrival 09/20/2015 2:21 PM Reg Status Complete LOS 000 01:04 Address: [address] [facility] [address] Comment: PROVIDER INFORMATION Provider Role Provider Contact Time AGNES GARCIA LPN ED Nurse 09/20/15 14:59 JOVI ALVARADO PA-C ED Provider 09/20/15 15:16 DIAGNOSIS Bronchitis Acute; Sinusitis Acute NOS Comment: PATIENT EDUCATION INFORMATION Instructions: BRONCHITIS, Abx Tx (Adult) Follow up: With: Address: When: NICOLE SANTANA [address] [place] [address] [phone] Business (1) Within As Needed Source: [facility] POWERCHART Document Id: [id number] ER DEVELOPMENT COORDINATOR documented in this encounter Progress Notes Jovi Alvarado P.A.-C., M.S. - 09/20/2015 2:21 PM CST [id number] CHIEF COMPLAINT/REASON FOR VISIT Cough. HISTORY OF [...] ALVARADO PA-C On: 09/27/2015 04:24 PM Source: [facility] MHSDOLBEYNONRADSYS Document Id: [id number] ER DEVELOPMENT COORDINATOR documented in this encounter H&P Notes Agnes Garcia R.N. - 09/20/2015 3:00 PM CST Urgent Care Intake Urgent Care Intake Entered On: 09/20/2015 15:02 CAREER DEVELOPMENT COORDINATOR Performed On: 09/20/2015 15:00 CAREER DEVELOPMENT COORDINATOR by AGNES GARCIA LPN Intake Chief Complaint [...] inch(es)) AGNES GARCIA LPN - 09/20/2015 15:00 CAREER DEVELOPMENT COORDINATOR General Info Information Given By : Patient Languages : Lithuanian Is Patient Female and 13-50 no hysterectomy : Yes Status : Patient denies Are you ? : No AGNES GARCIA LPN - 09/20/2015 15:00 CAREER DEVELOPMENT COORDINATOR Subjective Pain Symptoms : No AGNES GARCIA LPN - 09/20/2015 15:00 CAREER DEVELOPMENT COORDINATOR Dependent Habits Exposure to Tobacco Smoke : Care provider denies smoking in home Smoking Status : Current some day smoker Tobacco 2A : Yes Tobacco Use/Currently Using : Yes Tobacco Use/Last 30 Days : Yes Tobacco Use/Last 12 months : Yes Type : Cigarettes: Less than 20 per day Tobacco Use/Advised to Quit : No AGNES GARCIA LPN - 09/20/2015 15:00 CAREER DEVELOPMENT COORDINATOR Caffeine Use Grid Caffeine Use : None Last Use : 09-20-13 AGNES GARCIA LPN - 09/20/2015 15:00 CAREER DEVELOPMENT COORDINATOR Recreational Drug Use Grid Drug Use : None AGNES GARCIA LPN - 09/20/2015 15:00 CAREER DEVELOPMENT COORDINATOR Nutrition Nutrition Risk Factors by History Adult : None AGNES GARCIA LPN - 09/20/2015 15:00 CAREER DEVELOPMENT COORDINATOR Functional Current Daily Living Assistance : None AGNES GARCIA LPN - 09/20/2015 15:00 CAREER DEVELOPMENT COORDINATOR Psychosocial Domestic Abuse Concerns : None Behavioral Health Screen/Safety Assmt : No Temple Preference : No qualifying data available. AGNES GARCIA FEATHER WASHER - 09/20/2015 15:00 CAREER DEVELOPMENT COORDINATOR Advance Directive Advanced Directives : No Advance Directive Additional Information : No AGNES GARCIA ARPAN - 09/20/2015 15:00 CAREER DEVELOPMENT COORDINATOR Educ Needs Learning Style Preference Adult Grid Patient : None Family : None AGNES GARCIA ARPAN - 09/20/2015 15:00 CAREER DEVELOPMENT COORDINATOR Source: [facility] BlizuuCHART Document Id: [id number] CAREER DEVELOPMENT COORDINATOR!51 ER DEVELOPMENT COORDINATOR documented in this encounter ED Notes Suzanne Riley L.P.N. - 09/20/2015 3:22 PM CST ED Disposition Summary ED Disposition Summary Entered On: 09/20/2015 15:23 CAREER DEVELOPMENT COORDINATOR Performed On: 09/20/2015 15:22 CAREER DEVELOPMENT COORDINATOR by SUZANNE RILEY LPN ED Disposition Summary Printed Discharge Instructions Given to Patient : Yes SUZANNE RILEY LPN - 09/20/2015 15:22 CAREER DEVELOPMENT COORDINATOR Source: [facility] BlizuuCHART Document Id: [id number] CAREER DEVELOPMENT COORDINATOR!3 ER DEVELOPMENT COORDINATOR Lelia Garcia R.N. - 09/20/2015 2:21 PM CST ED Triage Assessment Document Has Been Updated ED Triage Assessment Entered On: 09/20/2015 14:22 CAREER DEVELOPMENT COORDINATOR Performed On: 09/20/2015 14:21 CAREER DEVELOPMENT COORDINATOR by LELIA GARCIA RN Reason For Visit (As Of: 09/20/2015 14:22:43 CAREER DEVELOPMENT COORDINATOR) Problems(Active) Cough Bronchospastic (ICD-9-CM :519.11 ) Name of Problem: Cough Bronchospastic ; Onset Date: 04/01/2015 ; Recorder: OFELIA RICARDO RN, THERESA; Confirmation: Confirmed ; Classification: Medical ; Code: 519.11 ; Contributor System: PowerChart ; Last Updated: 04/15/2015 7:28 CDT ; Life Cycle Status: Active ; Responsible Provider: OFELIA RICARDO RN, THERESA; Vocabulary: ICD-9-CM Iron deficiency anemia (SNOMED CT :414095972 ) Name of Problem: Iron deficiency anemia ; Onset Date:06/28/2010 ; Recorder: BRENNA CRAIG DNP, FNP; Confirmation: Confirmed ; Classification: Medical ; Code: 076594210 ; Contributor System: Agency EntourageChart ; Last Updated: 02/15/2011 11:49 CDT ; [...] pedis ; Onset Date: 10/02/2010 ; Recorder: ROAWN GONSALES MD; Confirmation: Confirmed ; Classification: UPDATE [...] PNED ; Probability: 0 ; Diagnosis Code: [id number] Triage Chief Complaint Description : cough, productive, for about 2 weeks. Cough is worse at night. OTC meds not working Information Given By : Patient Accompanied By : Alone Mode of Arrival ED : Private vehicle Track : Medical Languages : Lithuanian Patient Informed of Triage Location : Urgent Care Treatments Prior to Arrival : Home treatments Are you ? : No Is Patient Female and 13-50 no hysterectomy : Yes Status : Patient denies LELIA GARCIA RN - 09/20/2015 14:21 CAREER DEVELOPMENT COORDINATOR Pain Assessment Pain Symptoms : No LELIA GARCIA RN - 09/20/2015 14:21 CAREER DEVELOPMENT COORDINATOR CHARANJIT DCP GENERIC CODE Tracking Acuity : 4 -Less Urgent Tracking Group : RW ED LELIA GARCIA RN - 09/20/2015 14:21 CAREER DEVELOPMENT COORDINATOR Source: [facility] GenerationStation Document Id: [id number] CAREER DEVELOPMENT COORDINATOR!19 ER DEVELOPMENT COORDINATOR documented in this encounter Plan of Treatment Not on filedocumented as of this encounter Visit Diagnoses Not on filedocumented in this encounter
--- OUTSIDE RECORDS SUMMARY | 2022-05-19 16:10 | XMS_ITS | Encounter Summary ---
:1990 Author Organization [facility] Address [address] [place] [address] Care Team Providers Name Role Phone Unavailable Primary Care Provider Unavailable Encounter Details Date Type Department Care Team Description 10/21/[address] [facility] [place] Dany Avalos M.D. [address] [place] [address] (Wo rk) Social History Tobacco Use Types Packs/Day Years Used Date Smoking Tobacco: Never Assessed Sex Assigned at Date Recorded Not on file documented as of this encounter Last Filed Vital Signs Vital Sign Reading Time Taken Comments Blood Pressure 118/72 10/21/2014 12:58 PM CHRISTIAN SCIENCE READER Pulse 72 10/21/2014 12:58 PM CHRISTIAN SCIENCE READER Temperature - - Respiratory Rate 16 10/21/2014 12:58 PM CHRISTIAN SCIENCE READER Oxygen Saturation - - Inhaled Oxygen Concentration - - Weight - - Height 166 cm (5' 5.35) 10/21/2014 12:58 PM CHRISTIAN SCIENCE READER Body Mass Index - - documented in this encounter Progress Notes Elliott Avalos M.D. - 10/21/2014 12:35 PM CST [id number] CHIEF COMPLAINT/REASON FOR VISIT Left knee pain. [...] AVALOS MD On: 10/21/2014 05:03 PM Source: [facility] MHSDOLBEYNONRADSYS Document Id: [id number] STIAN SCIENCE READER documented in this encounter Miscellaneous Notes Miscellaneous - Marva Duarte L.P.N. - 10/21/2014 12:58 PM CST Adult Plane Tableman Intake/History Adult Plane Tableman Intake/History Entered On: 10/21/2014 13:01 CHRISTIAN SCIENCE READER Performed On: 10/21/2014 12:58 CHRISTIAN SCIENCE READER by MARVA DUARTE Intake Chief Complaint : [...] inch(es), 65 inch(es)) MARVA DUARTE 10/21/2014 12:58 CHRISTIAN SCIENCE READER General Info Information Given By : Patient Languages : Kyrgyz Is Patient Female and 13-50 no hysterectomy : Yes Status : Patient denies Are you ? : No MARVA DUARTE 10/21/2014 12:58 CHRISTIAN SCIENCE READER Subjective Pain Symptoms : Yes MARVA DUARTE 10/21/2014 12:58 CHRISTIAN SCIENCE READER Pain Scale Pain Scale Verbal 0-10 : Open MARVA DUARTE 10/21/2014 12:58 CHRISTIAN SCIENCE READER Pain Pain Assessment Grid Pain 1 Location : Knee Intensity : 4 MARVA DUARTE 10/21/2014 12:58 CHRISTIAN SCIENCE READER Dependent Habits Tobacco Use/Currently Using : No Exposure to Tobacco Smoke : Care provider denies smoking in home Smoking Status : Former smoker MARVA DUARTE 10/21/2014 12:58 CHRISTIAN SCIENCE READER Tobacco Use Grid Type : Cigarettes Cigarette Use Packs/Day : 0.5 Last Use : 09-20-13 MARVA DUARTE 10/21/2014 12:58 CHRISTIAN SCIENCE READER Caffeine Use Grid Caffeine Use : None Last Use : 09-20-13 MARVA DUARTE 10/21/2014 12:58 CHRISTIAN SCIENCE READER Recreational Drug Use Grid Drug Use : None MARVA DUARTE 10/21/2014 12:58 CHRISTIAN SCIENCE READER ID Screen Travel Within Last 21 Days : No MARVA DUARTE 10/21/2014 12:58 CHRISTIAN SCIENCE READER Source: [facility] POWERCHART Document Id: [id number] CHRISTIAN SCIENCE READER!45 STIAN SCIENCE READER documented in this encounter Plan of Treatment Not on filedocumented as of this encounter Visit Diagnoses Not on filedocumented in this encounter
--- OUTSIDE RECORDS SUMMARY | 2022-05-19 16:10 | XMS_ITS | Encounter Summary ---
:1990 Author Organization [facility] Address [address] [place] [address] Care Team Providers Name Role Phone Unavailable Primary Care Provider Unavailable Encounter Details Date Type Department Care Team Description 02/19/2013 Hospital Encounter HX [facility] ME Larry Souza, N.P. [address] [place] [phone] (Wo rk) Social History Tobacco Use [...] Souza, N.P. - 02/19/2013 9:26 AM CDT [id number] CHIEF COMPLAINT/REASON FOR VISIT Pain in left [...] late 2011 that seemed to improve with healthcare applications analyst and conservative measures. She has been using [...] SOUZA NP On: 02/21/2013 02:07 PM Source: [facility] MHSDOLBEYNONRADSYS Document Id: [id number] documented in this encounter Miscellaneous Notes Miscellaneous - Briseyda Souza NJason - 02/19/2013 10:10 AM CDT Ambulatory Patient Summary [address] [address] Visit Information Name: ARIS LEOS [facility] Number: [id number] Current Date: 02/19/2013 10:10:39 Physicians Attending Provider: BRISEYDA SOUZA NP Primary Care Provider: OFELIA RICARDO RN, PROFESSIONAL NURSE Your Medications Here is a list of [...] No Appointments found Your Goals/Additional instructions: Source: [facility] POWERCHART Document Id: [id number] Miscellaneous - Briseyda Souza NJason - 02/19/2013 10:10 AM CDT Ambulatory Depart Summary [facility] [address] [facility] [place] [address] Visit Information Name: ARIS LEOS [facility] Number: [id number] Visit Date: 02/19/2013 10:10:38 Attending Provider: BRISEYDA SOUZA AIRPORT DRIVER Primary Care Provider: OFELIA RICARDO RN, PROFESSIONAL NURSE ARIS LEOS has been given the following [...] your provider for clarification. Additional Information: Source: [facility] POWERCHART Document Id: [id number] Miscellaneous - Hardik Galvan, L.P.N. - 02/19/2013 9:38 AM CDT Adult Spa Supervisor Intake/History Adult Spa Supervisor Intake/History Entered On: 02/19/2013 9:43 CDT Performed On: 02/19/2013 9:38 CDT by HARDIK GALVAN RADIO HOST, RT Intake Chief Complaint : concerned about [...] Preferred Communication Mode : Verbal Languages : [place] African HARDIK GALVAN LPN, 02/19/2013 9:38 CDT Subjective [...] HARDIK GALVAN LPN, 02/19/2013 9:43 CDT [facility] Document Id: [id number] CDT!3 documented in this encounter Plan of Treatment Not on filedocumented as of this encounter Visit Diagnoses Not on filedocumented in this encounter
--- OUTSIDE RECORDS SUMMARY | 2022-05-19 16:10 | XMS_ITS | Encounter Summary ---
:1990 Author Organization [facility] Address [address] [place] [address] Care Team Providers Name Role Phone Unavailable Primary Care Provider Unavailable Encounter Details Date Type Department Care Team Description 12/30/2011 [facility] [place] Carol Mendes M.D. Social History Tobacco Use Types Packs/Day Years Used Date Smoking Tobacco: Never Assessed Sex Assigned at Date Recorded Not on file documented as of this encounter Plan of Treatment Not on filedocumented as of this encounter Visit Diagnoses Not on filedocumented in this encounter
--- OUTSIDE RECORDS SUMMARY | 2022-05-19 16:10 | XMS_ITS | Encounter Summary ---
:1990 Author Organization [facility] Address [address] [place] [address] Care Team Providers Name Role Phone Unavailable Primary Care Provider Unavailable Encounter Details Date Type Department Care Team Description 09/18/2012 Hospital Encounter HX [facility] Brenna Craig, GRIS, Zulema.N.P., D. N.P. [address] [place] [address] (Wo rk) Social History Tobacco Use Types Packs/Day Years Used Date Smoking Tobacco: Never Assessed Sex Assigned at Date Recorded Not on file documented as of this encounter Last Filed Vital Signs Vital Sign Reading Time Taken Comments Blood Pressure 116/68 09/18/2012 1:55 PM SHOP FITTER Pulse 88 09/18/2012 1:55 PM SHOP FITTER Temperature - - Respiratory Rate 18 09/18/2012 1:55 PM SHOP FITTER Oxygen Saturation - - Inhaled Oxygen Concentration - - Weight 82.7 kg (182 lb 5.1 oz) 09/18/2012 1:55 PM SHOP FITTER Height - - Body Mass Index 29.3 05/09/2012 12:45 PM CDT documented in this encounter Progress Notes Brenna Craig, D.N.P., C.N.P. - 09/18/2012 1:49 PM CST [id number] CHIEF COMPLAINT/REASON FOR VISIT Runny nose and [...] of. 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 She otherwise denies having any other further concerns or issues. She denies having any nausea or vomiting, shortness of breath, or difficulty breathing and reports that she has not had any changes in urination or bowel habits. She does report that she has been using ubnk-cep-vwnszxb Tylenol to help with the symptoms with minimal symptom improvement. PAST MEDICAL/SURGICAL HISTORY Reviewed. Please see chart. FAMILY HISTORY Reviewed. Please see chart. CURRENT MEDICATIONS Reviewed. Please see chart. ALLERGIES Reviewed. Please see chart. PHYSICAL EXAMINATION OBJECTIVE: Patient is alert/oriented x 3. HEAD: Normocephalic/atraumatic. PUPILS: HARITHA. OROPHARYNX: [place] and moist. TMs: Bilateral TMs are clear, [...] will also plan on contacting her at [phone] regarding her urine gonorrhea and chlamydia results [...] DNP, FNP On: 09/20/2012 09:55 AM Source: [facility] MHSDOLBEYNONRADSYS Document Id: [id number] FITTER documented in this encounter Miscellaneous Notes Miscellaneous - Brenna Craig D.N.P., C.N.P. - 09/18/2012 2:56 PM SHOP FITTER Ambulatory Patient Summary [address] [address] Visit Information Name: ARIS LEOS [facility] Number: [id number] Current Date: 09/18/2012 14:56:37 Physicians Attending Provider: BRENNA CRAIG DNP, FNP Primary Care Provider: OFELIA RICARDO RN, STOCK RAISER Your Medications Here is a list of [...] No Appointments found Your Goals/Additional instructions: Source: [facility] POWERCHART Document Id: [id number] FITTER Miscellaneous - Brenna Craig D.N.P., C.N.P. - 09/18/2012 2:56 PM SHOP FITTER Ambulatory Depart Summary [address] [address] Visit Information Name: ARIS LEOS [facility] Number: [id number] Visit Date: 09/18/2012 14:56:36 Attending Provider: BRENNA CRAIG DNP, [place] Primary Care Provider: OFELIA RICARDO RN, STOCK RAISER ARIS LEOS has been given the following [...] your provider for clarification. Additional Information: Source: [facility] POWERCHART Document Id: [id number] FITTER Miscellaneous - Darius Sandoval, L.P.N. - 09/18/2012 1:55 PM CST Adult Back Wedger Intake/History Adult Back Wedger Intake/History Entered On: 09/18/2012 14:00 SHOP FITTER Performed On: 09/18/2012 13:55 SHOP FITTER by DARIUS SANDOVAL LPN Intake Chief Complaint [...] 82.70kg DARIUS SANDOVAL LPN - 09/18/2012 13:55 SHOP FITTER Subjective Pain Symptoms : No DARIUS SANDOVAL LPN - 09/18/2012 13:55 SHOP FITTER Dependent Habits Tobacco Use/Currently Using : Yes Exposure to Tobacco Smoke : Patient smokes Smoking Status : Current every day smoker DARIUS SANDOVAL LPN - 09/18/2012 13:55 SHOP FITTER Tobacco Use Grid Type : Cigarettes Cigarette Use Packs/Day : 0.5 Last Use : 10 min ago DARIUS SANDOVAL LPN - 09/18/2012 13:55 SHOP FITTER Alcohol Use : No DARIUS SANDOVAL LPN - 09/18/2012 13:55 SHOP FITTER Caffeine Use Grid Caffeine Use : Current Type : Soft drinks Frequency : Weekly Amount : 2 cans Last Use : 11am DARIUS SANDOVAL LPN - 09/18/2012 13:55 SHOP FITTER Recreational Drug Use Grid Drug Use : None DARIUS SANDOVAL LPN - 09/18/2012 13:55 SHOP FITTER Allergy Allergies (Active) NKA Estimated Onset Date: Unspecified ; Created By: CATHLEEN KURTZ LPN; Reaction Status: Active ;Category: Drug ; Substance: NKA ; Type: Allergy ; Updated By: CATHLEEN KURTZ LPN; Reviewed Date: 09/18/2012 13:48 SHOP FITTER Source: [facility] AYLIEN Document Id: [id number] FITTER Miscellaneous - Darius Sandoval, L.P.N. - 09/18/2012 1:55 PM CST Health Assessment Health Assessment Entered On: 09/18/2012 14:00 SHOP FITTER Performed On: 09/18/2012 13:55 SHOP FITTER by DARIUS SANDOVAL LPN Health Assessment Complete Health Assessment Complete or Modified : Annual Health Assessment Annual Health Assessment Completed : Yes DARIUS SANDOVAL LPN - 09/18/2012 13:55 SHOP FITTER Nutrition Nutrition Risk Factors by History Adult : None DARIUS SANDOVAL LPN - 09/18/2012 13:55 SHOP FITTER Functional Current Daily Living Assistance : None DARIUS SANDOVAL LPN - 09/18/2012 13:55 SHOP FITTER Dependent Habits Tobacco Use/Currently Using : Yes Exposure to Tobacco Smoke : Patient smokes Smoking Status : Current every day smoker DARIUS SANDOVAL LPN - 09/18/2012 13:55 SHOP FITTER Tobacco Use Grid Type : Cigarettes Cigarette Use Packs/Day : 0.5 Last Use : 10 min ago DARIUS SANDOVAL [facility] 09/18/2012 13:55 SHOP FITTER Alcohol Use : No DARIUS SANDOVAL [facility] 09/18/2012 13:55 SHOP FITTER Caffeine Use Grid Caffeine Use : Current Type : Soft drinks Frequency : Weekly Amount : 2 cans Last Use : 11am DARIUS SANDOVAL [facility] 09/18/2012 13:55 SHOP FITTER Recreational Drug Use Grid Drug Use : None DARIUS SANDOVAL [facility] 09/18/2012 13:55 SHOP FITTER Psychosocial Domestic Abuse Concerns : None DARIUS SANDOVAL [facility] 09/18/2012 13:55 SHOP FITTER Advance Directive Advanced Directives : No DARIUS SANDOVAL [facility] 09/18/2012 13:55 SHOP FITTER Educ Needs Learning Style Preference Adult Grid Patient : None Family : None DARIUS SANDOVAL [facility] 09/18/2012 13:55 SHOP FITTER Source: [facility] POWERCHART Document Id: [id number] FITTER documented in this encounter Plan of Treatment Not on filedocumented as of this encounter Procedures Procedure Name Priority Date/Time Associated Diagnosis Comme nts INFLUENZA A/B Routine 09/18/2012 2:34 PM Results for this SHOP FITTER procedure are i n the results section. N GONOR AMP SRC Routine 09/18/2012 2:33 PM Result s for this SHOP FITTER procedure are i n the results section. N GONOR AMP DNA Routine 09/18/2012 2:33 PM Result s for this SHOP FITTER procedure are i n the results section. C TRACH AMP SRC Routine 09/18/2012 2:33 PM Result s for this SHOP FITTER procedure are i n the results section. C TRACH AMP RNA Routine 09/18/2012 2:33 PM Result s for this SHOP FITTER procedure are i n the results section. documented in this encounter Results (ABNORMAL) Influenza A/B (09/18/2012 2:34 PM SHOP FITTER) [facility] Method Time Signature HXInfluenza A (POSITIVE [...] / Volume Laterality Nasal 09/18/2012 2:34 PM SHOP FITTER Brenna Craig APRN, C.N.P., D.N.P. LAB MICROBIOLO GY - GENERAL ORDERABLES Performing Organization Address City/State/ZIP Code Phon e Number POWERCHART HX-N gonor Amp DNA (09/18/2012 2:33 PM SHOP FITTER) athologist Signature HXN gonor Amp Negative POWERCHART DNA-[place] Specimen (Source) Anatomical Collection Method Collection Time Re ceived Time Location / / Volume Laterality 09/18/2012 2:33 PM SHOP FITTER Narrative POWERCHART - 09/20/2012 8:45 AM SHOP FITTER Test Performed by: [place] [address] Computer Assembler: Raji encarnacion III, M.D. Brenna Craig APRN C.N.P., D.N.P. LAB HISTORICAL ORDERS Performing Organization Address City/[facility]/ZIP Code Phon e Number POWERCHART HX-N gonor Amp Src (09/18/2012 2:33 PM SHOP FITTER) athologist Signature HXN gonor Amp urine POWERCHART Src-[place] Specimen (Source) Anatomical Collection Method Collection Time Re ceived Time Location / / Volume Laterality 09/18/2012 2:33 PM SHOP FITTER Brenna Craig APRN, C.N.P., D.N.P. LAB HISTORICAL ORDERS Performing Organization Address City/State/ZIP Code Phon e Number POWERCHART HX-C trach Amp RNA (09/18/2012 2:33 PM SHOP FITTER) [facility] gist Method Time Signature Chlamydia Negative POWERCHART trachomatis amplified RNA Specimen (Source) Anatomical Collection Method Collection Time Re ceived Time Location / / Volume Laterality 09/18/2012 2:33 PM SHOP FITTER Brenna Craig APRN, C.N.P., D.N.P. LAB HISTORICAL ORDERS Performing Organization Address City/State/ZIP Code Phon e Number POWERCHART HX-C trach Amp Src (09/18/2012 2:33 PM SHOP FITTER) athologist Signature HXC trach Amp urine POWERCHART [facility] Specimen (Source) Anatomical Collection Method Collection Time Re ceived Time Location / / Volume Laterality 09/18/2012 2:33 PM SHOP FITTER Brenna Craig APRN, C.N.P., D.N.P. LAB HISTORICAL ORDERS Performing Organization Address City/State/ZIP Code Phon e Number POWERCHART documented in this encounter Visit Diagnoses Not on filedocumented in this encounter
--- OUTSIDE RECORDS SUMMARY | 2022-05-19 16:10 | XMS_ITS | Encounter Summary ---
:1990 Author Organization [facility] Address [address] [place] [address] Care Team Providers Name Role Phone Unavailable Primary Care Provider Unavailable Encounter Details Date Type Department Care Team Description 01/27/[address] [facility] Anne-Marie Roland, GRIS, C.N.P., D. N.P. [address] [place] [address] (Wo rk) Social History Tobacco [...] Dosing Weight: 68.300kg Last Depo-Provera Given: 11/05/2010 [place] [employer] SYSTEM OPERATOR Needs test: No KEVIN LUGO RN - 01/27/2011 16:20 CDT Source: [facility] POWERCHART Document Id: [id number] CDT!8 documented in this encounter Plan of Treatment Not on filedocumented as of this encounter Visit Diagnoses Not on filedocumented in this encounter
--- OUTSIDE RECORDS SUMMARY | 2022-05-19 16:10 | XMS_ITS | Encounter Summary ---
:1990 Author Organization [facility] Address [address] [place] [address] Care Team Providers Name Role Phone Unavailable Primary Care Provider Unavailable Encounter Details Date Type Department Care Team Description 02/15/2011 Hospital Encounter HX [facility] Brenna Craig, GRIS, Zulema.N.P., D. N.P. [address] [place] [address] (Wo rk) Social History Tobacco Use Types Packs/Day Years Used Date Smoking Tobacco: Never Assessed Sex Assigned at Date Recorded Not on file documented as of this encounter Progress Notes Brenna Craig, D.N.P., C.N.P. - 02/15/2011 12:00 AM CDT [id number] CHIEF COMPLAINT/REASON FOR VISIT Nausea and diarrhea. [...] that she has not been taking any uygg-tjz-gtnhijw medications to help with her symptoms and [...] equal, round and reactive to light.. OROPHARYNX: [place] and moist. TMs: Bilateral tympanic membranes are [...] DNP, FNP On: 02/15/2011 04:43 PM Source[facility] Document Id: [id number] documented in this encounter Miscellaneous Notes Miscellaneous - Brenna Craig D.N.P., C.N.P. - 02/15/2011 11:52 AM CDT Ambulatory Patient Summary [facility] - [address] [address] Visit Information Name: ARIS LEOS Current Date: 02/15/2011 11:51:57 Primary Care Provider: OFELIA RICARDO RN, MANAGER HEART FAILURE Your Medications Here is a list of [...] No Appointments found Your Goals/Additional instructions: Source: [employer] Document Id: [id number] Miscellaneous - Brenna Craig D.N.Jie., C.N.P. - 02/15/2011 11:51 AM CDT Ambulatory Depart Summary [facility] - [address] [address] Visit Information Name: ARIS LEOS Current Date: 02/15/2011 11:51:57 Primary Care Provider: OFELIA RICARDO RN, MANAGER HEART FAILURE ARIS LEOS LELIA has been given the [...] to the patient and/or family, guardian/caregiver. Source: [employer] Document Id: [id number] Miscellaneous - Anastacia, Historical Provider Ser - 02/15/2011 11:05 AM CDT Pediatric Human Capital Consultant Intake/History Pediatric Human Capital Consultant Intake/History Entered On: 02/15/2011 11:08 CDT Performed [...] 10 min ago FRANCINE MALDONADO LPN - 02/15/2011 11:05 CDT Caffeine [...] LPN; Reviewed Date: 02/15/2011 11:04 CDT Source: [facility] [employer] Document Id: [id number] CDT!36 documented in this encounter Plan of Treatment Not on filedocumented as of this encounter Visit Diagnoses Not on filedocumented in this encounter
--- OUTSIDE RECORDS SUMMARY | 2022-05-19 16:10 | XMS_ITS | Encounter Summary ---
:1990 Author Organization [facility] Address [address] [place] [address] Care Team Providers Name Role Phone Unavailable Primary Care Provider Unavailable Encounter Details Date Type Department Care Team Description 03/04/[address] [facility] Ofelia Ricardo APRN, C.N.P., D. N.P. [address] [place] [address] (Wo rk) Social History Tobacco [...] APRN, C.N.P. - 03/04/2015 3:14 PM CDT [id number] CHIEF COMPLAINT/REASON FOR VISIT Vaginal symptoms of [...] Matti.N.P./radha Electronically Signed By: OFELIA RICARDO RN, AIR BRAKES INSPECTOR On: 03/05/2015 12:46 PM Source: [facility] MHSDOLBEYNONRADSYS Document Id: [id number] documented in this encounter Miscellaneous Notes Miscellaneous - Ofelia Ricardo APRN, C.N.P. - 03/04/2015 4:12 PM CDT Ambulatory Patient Summary [address] [place] [id number] Visit Information Name: ARIS LEOS [facility] Number: [id number] Current Date: 03/04/2015 16:12:12 Physicians Attending Provider: OFELIA RICARDO RN, THERESA Primary Care Provider: OFELIA RICARDO RN, AIR BRAKES INSPECTOR ARIS LEOS has been given the following [...] day x 7 day(s) New Routed to [facility] [address] [address] Stop Taking the Following Medications: Medication list [...] appointment detail needed. Your Goals/Additional instructions: Source: [facility] ClickFoxCHART Document Id: [id number] Miscellaneous - Ofelia Ricardo APRN, C.N.P. - 03/04/2015 4:12 PM CDT Ambulatory Discharge Medication List [address] [id number] Visit Information Name: ARIS LEOS [facility] Number: [id number] Visit Date: 03/04/2015 16:12:11 Attending [...] day x 7 day(s) New Routed to [facility] [address] [address] Stop Taking the Following Medications: Medication list [...] THERESA Signed On:04-MAR-2015 16:12:09 Additional Information: Source: [facility] ClickFoxCHART Document Id: [id number] Miscellaneous - Darius Sandoval L.P.N. - 03/04/2015 3:21 PM CDT Adult Operating Room Manager Intake/History Adult Operating Room Manager Intake/History Entered On: 03/04/2015 15:24 CDT Performed On: 03/04/2015 15:21 CDT by DARIUS SANDOVAL SHIPFITTER APPRENTICE Intake Chief Complaint : Vaginal itching. Temperature [...] Preferred Communication Mode : Verbal Languages : Swedish Is Patient Female and 13-50 no hysterectomy [...] SANDOVAL LPN - 03/04/2015 15:21 CDT Source: [facility] POWERCHART Document Id: [id number] CDT!47 documented in this encounter Plan of Treatment Not on filedocumented as of this encounter Procedures Procedure Name Priority Date/Time Associated Comments Diagnosis WET PREP EXAM, Routine 03/04/2015 3:45 PM Results for this UROGENITAL CDT procedure are i n the results section. documented in this encounter Results (ABNORMAL) Wet Prep Exam, Urogenital (03/04/2015 3:45 PM CDT) [facility] Method Time Signature HXWet Prep (POSITIVE) [...]
--- OUTSIDE RECORDS SUMMARY | 2022-05-19 16:10 | XMS_ITS | Encounter Summary ---
:1990 Author Organization [facility] Address [address] [place] [address] Care Team Providers Name Role Phone Unavailable Primary Care Provider Unavailable Encounter Details Date Type Department Care Team Description 12/30/2011 Hospital Encounter HX [facility] Carol Mendes M.D. Social History Tobacco Use [...] MARVA DUARTE - 12/30/2011 15:32 CDT Source: [facility] POWERCHART Document Id: [id number] CDT!7 documented in this encounter Nursing Notes [...] MARVA DUARTE - 12/30/2011 15:26 CDT Source: [employer] POWERCHART Document Id: [id number] CDT!14 documented in this encounter Plan of Treatment Not on filedocumented as of this encounter Visit Diagnoses Not on filedocumented in this encounter
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
--- OUTSIDE RECORDS SUMMARY | 2022-05-19 16:10 | XMS_ITS | Encounter Summary ---
:1990 Author Organization [facility] Address [address] [place] [address] Care Team Providers Name Role Phone Unavailable Primary Care Provider Unavailable Encounter Details Date Type Department Care Team Description 11/18/2014 Hospital Encounter H[facility] Brenna Craig, GRIS, C.N.P., D. N.P. [address] [place] [address] (Wo rk) Social History Tobacco Use Types Packs/Day Years Used Date Smoking Tobacco: Never Assessed Sex Assigned at Date Recorded Not on file documented as of this encounter Last Filed Vital Signs Vital Sign Reading Time Taken Comments Blood Pressure 131/97 11/18/2014 1:19 PM LEGISLATIVE ANALYST Pulse 105 11/18/2014 1:19 PM LEGISLATIVE ANALYST Temperature - - Respiratory Rate 14 11/18/2014 1:19 PM LEGISLATIVE ANALYST Oxygen Saturation - - Inhaled Oxygen Concentration - - Weight - - Height 166 cm (5' 5.35) 11/18/2014 1:19 PM LEGISLATIVE ANALYST Body Mass Index - - documented in this encounter Progress Notes Brenna Craig, D.N.P., C.N.P. - 11/18/2014 1:11 PM CST [id number] CHIEF COMPLAINT/REASON FOR VISIT Rash. HISTORY OF [...] DNP, FNP On: 11/18/2014 03:38 PM Source[facility] Document Id: [id number] SLATIVE ANALYST documented in this encounter Miscellaneous Notes Miscellaneous - Brenna Craig D.N.P., C.N.P. - 11/18/2014 2:20 PM LEGISLATIVE ANALYST Ambulatory Patient Summary [address] [id number] Visit Information Name: ARIS LEOS [facility] Number: [id number] Current Date: 11/18/2014 14:20:13 Physicians Attending Provider: BRENNA CRAIG DNP, FNP Primary Care Provider: OFELIA RICARDO RN, STAFF ACCOUNTANT ARIS LEOS has been given the following [...] day x 10 day(s) New Routed to [facility] [address] [address] Stop Taking the Following Medications: Medication list [...] appointment detail needed. Your Goals/Additional instructions: Source: [facility] POWERCHART Document Id: [id number] SLATIVE ANALYST Miscellaneous - Brenna Craig D.Cecil.Jie., C.N.P. - 11/18/2014 2:20 PM LEGISLATIVE ANALYST Ambulatory Discharge Medication List [address] [id number] Visit Information Name: ARIS LEOS [facility] Number: [id number] Visit Date: 11/18/2014 14:20:12 Attending Provider: BRENNA CRAIG DNP, DHIRAJ Primary Care Provider: OFELIA RICARDO RN, STAFF ACCOUNTANT ARIS LEOS has been given the following [...] day x 10 day(s) New Routed to [facility] [address] [address] Stop Taking the Following Medications: Medication list [...] FNP Signed On:18-NOV-2014 13:58:15 Additional Information: Source: [facility] POWERCHART Document Id: [id number] SLATIVE ANALYST Miscellaneous - Rina Caballero L.P.NAnia - 11/18/2014 1:25 PM CST Health Assessment Health Assessment Entered On: 11/18/2014 13:25 LEGISLATIVE ANALYST Performed On: 11/18/2014 13:25 LEGISLATIVE ANALYST by RINA CABALLERO LPN Health Assessment Complete Health Assessment Complete or Modified : Annual Health Assessment Annual Health Assessment Completed : Yes RINA CABALLERO LPN - 11/18/2014 13:25 LEGISLATIVE ANALYST Nutrition Nutrition Risk Factors by History Adult : Unintentional weight loss greater than 10 lbs in last 6 months RINA CABALLERO [facility] - 11/18/2014 13:25 LEGISLATIVE ANALYST Functional Current Daily Living Assistance : None RINA CABALLERO LPN - 11/18/2014 13:25 LEGISLATIVE ANALYST Dependent Habits Tobacco Use/Currently Using : No Tobacco Use/Last 12 months : No Tobacco Use/Advised to Quit : No Exposure to Tobacco Smoke : Care provider denies smoking in home Smoking Status : Never smoker RINA CABALLERO [facility] - 11/18/2014 13:25 LEGISLATIVE ANALYST Tobacco Use Grid Type : Cigarettes Cigarette Use Packs/Day : 0.5 Last Use : 09-20-13 RINA CABALLERO [facility] - 11/18/2014 13:25 LEGISLATIVE ANALYST Caffeine Use Grid Caffeine Use : None Last Use : 09-20-13 RINA CABALLERO [facility] - 11/18/2014 13:25 LEGISLATIVE ANALYST Recreational Drug Use Grid Drug Use : None RINA CABALLERO [facility] - 11/18/2014 13:25 LEGISLATIVE ANALYST Psychosocial Domestic Abuse Concerns : None Denominational Preference : No qualifying data available. RINA CABALLERO FRUIT C[employer]TER - 11/18/2014 13:25 LEGISLATIVE ANALYST Advance Directive Advanced Directives : No Advance Directive Additional Information : No RINA CABALLERO LPN - 11/18/2014 13:25 LEGISLATIVE ANALYST Educ Needs Learning Style Preference Adult Grid Patient : None Family : None RINA CABALLERO LPN - 11/18/2014 13:25 LEGISLATIVE ANALYST [facility] P[facility] Document Id: [id number] LEGISLATIVE ANALYST!36 SLATIVE ANALYST Miscellaneous - Rina Caballero L.P.N. - 11/18/2014 1:25 PM CST Meaningful Use Influenza Exclusion Meaningful Use Influenza Exclusion Entered On: 11/18/2014 13:25 LEGISLATIVE ANALYST Performed On: 11/18/2014 13:25 LEGISLATIVE ANALYST by RINA CABALLERO LPN Influenza Vaccine Exclusion Influenza Vaccine Exclusion : Patient declined RINA CABALLERO LPN - 11/18/2014 13:25 LEGISLATIVE ANALYST Source: [facility] Document Id: [id number] LEGISLATIVE ANALYST!3 SLATIVE ANALYST Miscellaneous - Rina Caballero L.P.N. - 11/18/2014 1:19 PM CST Adult Net Lead Architect Intake/History Adult Net Lead Architect Intake/History Entered On: 11/18/2014 13:24 LEGISLATIVE ANALYST Performed On: 11/18/2014 13:19 LEGISLATIVE ANALYST by RINA CABALLERO LPN Intake Chief Complaint [...] inch(es)) RINA CABALLERO LPN - 11/18/2014 13:19 LEGISLATIVE ANALYST General Info Information Given By : Patient Languages : Thai Is Patient Female and 13-50 no hysterectomy : Yes Status : Patient denies Are you ? : No RINA CABALLERO LPN - 11/18/2014 13:19 LEGISLATIVE ANALYST Subjective Pain Symptoms : No RINA CABALLERO [facility] - 11/18/2014 13:19 LEGISLATIVE ANALYST Dependent Habits Tobacco Use/Currently Using : No Tobacco Use/Last 12 months : No Tobacco Use/Advised to Quit : No Exposure to Tobacco Smoke : Care provider denies smoking in home Smoking Status : Never smoker GEORGIANARINA Mary [facility] - 11/18/2014 13:19 LEGISLATIVE ANALYST Tobacco Use Grid Type : Cigarettes Cigarette Use Packs/Day : 0.5 Last Use : 09-20-13 GEORGIANARINA JANE Mary [facility] - 11/18/2014 13:19 LEGISLATIVE ANALYST Caffeine Use Grid Caffeine Use : None Last Use : 09-20-13 GEORGIANA RINA Mary [facility] - 11/18/2014 13:19 LEGISLATIVE ANALYST Recreational Drug Use Grid Drug Use : None GEORGIANARINA Mary [facility] - 11/18/2014 13:19 LEGISLATIVE ANALYST ID Screen Drug Resistant Organism : No Travel Within Last 21 Days : No GEORGIANARINA Mary [facility] - 11/18/2014 13:19 LEGISLATIVE ANALYST Source: [employer]ART Document Id: [id number] LEGISLATIVE ANALYST!43 SLATIVE ANALYST documented in this encounter Plan of Treatment Not on filedocumented as of this encounter Procedures Procedure Name Priority Date/Time Associated Diagnosis Comme nts N GONOR AMP SRC Routine 11/18/2014 2:06 PM Result s for this LEGISLATIVE ANALYST procedure are i n the results section. N GONOR AMP DNA Routine 11/18/2014 2:06 PM Result s for this LEGISLATIVE ANALYST procedure are i n the results section. C TRACH AMP SRC Routine 11/18/2014 2:06 PM Result s for this LEGISLATIVE ANALYST procedure are i n the results section. C TRACH AMP RNA Routine 11/18/2014 2:06 PM Result s for this LEGISLATIVE ANALYST procedure are i n the results section. documented in this encounter Results HX-N gonor Amp DNA (11/18/2014 2:06 PM LEGISLATIVE ANALYST) P athologist Signature HXN gonor Amp Negative POWERCHART DNA-[place] Specimen (Source) Anatomical Collection Method Collection Time Re ceived Time Location / / Volume Laterality 11/18/2014 2:06 PM LEGISLATIVE ANALYST Narrative POWERCHART - 11/20/2014 6:00 PM LEGISLATIVE ANALYST Test Performed by: [address] [address] Pilot: Garth Diaz II, M.D., Ph.D. Brenna Craig APRN, C.N.P., D.N.P. LAB HISTORICAL ORDERS Performing Organization Address City/State/ZIP Code Phon e Number POWERCHART HX-N gonor Amp Src (11/18/2014 2:06 PM LEGISLATIVE ANALYST) athologist Signature HXN gonor Amp urine POWERCHART Src-[place] Specimen (Source) Anatomical Collection Method Collection Time Re ceived Time Location / / Volume Laterality 11/18/2014 2:06 PM LEGISLATIVE ANALYST Brenna Craig APRN, C.N.P., D.N.P. LAB HISTORICAL ORDERS Performing Organization Address City/[facility]/ZIP Code Phon e Number POWERCHART HX-C trach Amp RNA (11/18/2014 2:06 PM LEGISLATIVE ANALYST) [facility] gist Method Time Signature Chlamydia Negative POWERCHART trachomatis amplified RNA Specimen (Source) Anatomical Collection Method Collection Time Re ceived Time Location / / Volume Laterality 11/18/2014 2:06 PM LEGISLATIVE ANALYST Brenna Craig APRN, C.N.P., D.N.P. LAB HISTORICAL ORDERS Performing Organization Address City/[facility]/ZIP Code Phon e Number POWERCHART HX-C trach Amp Src (11/18/2014 2:06 PM LEGISLATIVE ANALYST) athologist Signature HXC trach Amp urine POWERCHART Src-[place] Specimen (Source) Anatomical Collection Method Collection Time Re ceived Time Location / / Volume Laterality 11/18/2014 2:06 PM LEGISLATIVE ANALYST Brenna Craig APRN, C.N.P., D.N.P. LAB HISTORICAL ORDERS Performing Organization Address City/State/ZIP Code Phon e Number POWERCHART documented in this encounter Visit Diagnoses Not on filedocumented in this encounter
--- OUTSIDE RECORDS SUMMARY | 2022-05-19 16:11 | XMS_ITS | Encounter Summary ---
:1990 Author Organization [facility] Address [address] [place] [address] Care Team Providers Name Role Phone Unavailable Primary Care Provider Unavailable Encounter Details Date Type Department Care Team Description 01/25/2010 Hospital Encounter [facility] INPT/OBSRV Lisa Velez M.D. [address] [place] [phone] (Wo rk) Social History Tobacco Use Types Packs/Day Years Used Date Smoking Tobacco: Never Assessed Sex Assigned at Date Recorded Not on file documented as of this encounter Plan of Treatment Not on filedocumented as of this encounter Visit Diagnoses Not on filedocumented in this encounter
--- OUTSIDE RECORDS SUMMARY | 2022-05-19 16:11 | XMS_ITS | Encounter Summary ---
:1990 Author Organization [facility] Address [address] [place] [address] Care Team Providers Name Role Phone Unavailable Primary Care Provider Unavailable Encounter Details Date Type Department Care Team Description 12/16/2010 Hospital Encounter [facility] Brenna Craig, GRIS, C.N.P., D. N.P. [address] [place] [address] (Wo rk) Social History Tobacco Use Types Packs/Day Years Used Date Smoking Tobacco: Never Assessed Sex Assigned at Date Recorded Not on file documented as of this encounter Progress Notes Brenna Craig, D.N.P., C.N.P. - 12/16/2010 12:00 AM CDT [id number] CHIEF COMPLAINT/REASON FOR VISIT Sore throat. HISTORY [...] CRAIG DNP, FNP On: 12/16/2010 11:54 Source: [facility] MHSDOLBEYNONRADSYS Document Id: [id number] documented in this encounter Miscellaneous Notes Miscellaneous - Brenna Craig D.N.P., C.N.P. - 12/16/2010 10:06 AM CDT Ambulatory Patient Summary [facility] [address] [place] [address] Visit Information Name: ARIS LEOS Current Date: [...] No Appointments found Your Goals/Additional instructions: Source: [facility] POWERCHART Document Id: [id number] Electronically signed by Anastacia, [facility] Supervisor Cell Maintenance [id number] at 03/05/2017 5:50 PM CDT Miscellaneous - Brenna Craig D.N.P., C.N.P. - 12/16/2010 10:06 AM CDT Ambulatory Depart Summary [facility] [address] [place] [address] Visit Information Name: ARIS LEOS Current Date: [...] to the patient and/or family, guardian/caregiver. Source: [facility] POWERCHART Document Id: [id number] Electronically signed by Anastacia [facility] Supervisor Cell Maintenance [id number] at 03/05/2017 5:50 PM CDT Miscellaneous - Lesley Ledesma, L.P.N. - 12/16/2010 9:26 AM CDT Adult Hose Seamer Intake/History Adult Hose Seamer Intake/History Entered On: 12/16/2010 9:29 CDT Performed On: 12/16/2010 9:26 CDT by LESLEY GARCIA FLAME BRAZING MACHINE OPERATOR Intake Chief Complaint: cold since yesterday sore throat chills Temperature Core: 37.1C(Converted to: 98.8DegF) Peripheral Pulse Rate: 102/min (HI) Respiratory Rate: 14/min Systolic Blood Pressure: 110mmHg Diastolic Blood Pressure: 64mmHg NIBP Mean: 79mmHg BP Location: Left upper extremity Heart Rhythm: Regular Actual Weight: 65.400kg(Converted to: 144lb 3oz) Weight Source: Standing scale Dosing Weight Clinic: 65.40kg JOSE, LESLEY Nicole [facility] - 12/16/2010 9:26 CDT Subjective Pain Symptoms: Yes JOSE LESLEY Nicole FLAME BRAZING MACHINE OPERATOR - 12/16/2010 9:26 CDT Pain Pain Assessment Grid Pain 1 Location: Throat Intensity: 8 JOSE, LESLEY Nicole [facility] - 12/16/2010 9:26 CDT Dependent Habits Tobacco Use/Currently Using: Yes Exposure to Tobacco Smoke: Patient smokes JOSE LESLEY Nicole [facility] - 12/16/2010 9:26 CDT Tobacco Use Grid Type: Cigarettes Cigarette Use Packs/Day: 0.5 Last Use: 10 min ago LESLEY GARCIA [facility] - 12/16/2010 9:26 CDT Alcohol Use: No LESLEY GARCIA [facility] - 12/16/2010 9:26 CDT Caffeine Use Grid Caffeine Use: Current Type: Soft drinks Frequency: Weekly Amount: 2 cans Last Use: 11am LESLEY GARCIA [facility] - 12/16/2010 9:26 CDT Recreational Drug Use Grid Drug Use: None LESLEY GARCIA [facility] - 12/16/2010 9:26 CDT Allergies Allergies (Active) NKA Estimated Onset Date: Unspecified ; Created By: CATHLEEN KURTZ LPN; Reaction Status: Active ;Category: Drug ; Substance: NKA ; Type: Allergy ; Updated By: CATHLEEN KURTZ LPN; Reviewed Date: 12/16/2010 9:25 CDT Source: [facility] Document Id: [id number] CDT!40 documented in this encounter Plan of Treatment Not on filedocumented as of this encounter Visit Diagnoses Not on filedocumented in this encounter
--- OUTSIDE RECORDS SUMMARY | 2022-05-19 16:11 | XMS_ITS | Encounter Summary ---
:1990 Author Organization [facility] Address [address] [place] [address] Care Team Providers Name Role Phone Unavailable Primary Care Provider Unavailable Encounter Details Date Type Department Care Team Description 01/20/2011 Hospital Encounter [facility] Brenna Craig, GRIS, Zulema.N.P., D. N.P. [address] [place] [address] (Wo rk) Social History Tobacco Use Types Packs/Day Years Used Date Smoking Tobacco: Never Assessed Sex Assigned at Date Recorded Not on file documented as of this encounter Progress Notes Brenna Craig, D.N.P., C.N.P. - 01/20/2011 12:00 AM CDT [id number] CHIEF COMPLAINT/REASON FOR VISIT Headache. HISTORY OF [...] reports that she has not used anything pziq-rlx-uauaqqg to help with her symptoms of discomfort [...] equal, round and reactive to light.. OROPHARYNX: [place] and moist. TMs: Bilateral tympanic membranes are [...] fluid intake and take ibuprofen over the irke-dyp-xjbqhna as directed on package to help with [...] D.N.P., F.N.P. /jak Electronically Signed By: BRENNA CRAIG DNP, FNP On: 01/20/2011 08:07 [facility] Document Id: [id number] documented in this encounter Miscellaneous Notes Miscellaneous - Brenna Craig D.N.P., C.N.P. - 01/20/2011 5:45 PM CDT Ambulatory Patient Summary [address] [id number] Visit Information Name: ARIS LEOS Current Date: 01/20/2011 17:45:32 Primary Care Provider: OFELIA RICARDO RN, BANQUET SUPERVISOR Your Medications Here is a list of [...] No Appointments found Your Goals/Additional instructions: Source: [facility] POWERCHART Document Id: [id number] Electronically signed by Anastacia [facility] Administration Analyst [id number] at 03/05/2017 10:49 AM CDT Miscellaneous - Brenna Craig, Bonnie.N.P., C.N.P. - 01/20/2011 5:45 PM CDT Ambulatory Depart Summary [facility] - [address] [address] Visit Information Name: ARIS LEOS Current Date: 01/20/2011 17:45:32 Primary Care Provider: OFELIA RICARDO RN, BANQUET SUPERVISOR ARIS LEOS has been given the following [...] to the patient and/or family, guardian/caregiver. Source: [facility] Digital Re[employer]CHART Document Id: [id number] Shashank - Betsy Chong L.P.N. - 01/20/2011 [...] CHONG LPN - 01/20/2011 15:39 CDT Source: [facility] [employer] Document Id: [id number] CDT!31 Miscellphilippe - Betsy Chong L.P.N. - 01/20/2011 3:33 PM CDT Adult Director Of Business Operations Intake/History Adult Director Of Business Operations Intake/History Entered On: 01/20/2011 15:39 CDT Performed [...] Patient smokes BETSY CHONG LPN - 01/20/2011 15:33 CDT Tobacco Use [...] LPN; Reviewed Date: 01/20/2011 15:33 CDT Source: [facility] [employer] Document Id: [id number] CDT!44 documented in this encounter Plan of Treatment Not on filedocumented as of this encounter Visit Diagnoses Not on filedocumented in this encounter
--- OUTSIDE RECORDS SUMMARY | 2022-05-19 16:11 | XMS_ITS | Encounter Summary ---
:1990 Author Organization [facility] Address [address] [place] [address] Care Team Providers Name Role Phone Unavailable Primary Care Provider Unavailable Encounter Details Date Type Department Care Team Description 04/26/2010 Hospital Encounter [facility] INPT/OBSRV Cecil Tipton M.D. [address] [place], [place] [address] (Wo rk) Social History Tobacco Use Types Packs/Day Years Used Date Smoking Tobacco: Never Assessed Sex Assigned at Date Recorded Not on file documented as of this encounter Plan of Treatment Not on filedocumented as of this encounter Visit Diagnoses Not on filedocumented in this encounter
--- OUTSIDE RECORDS SUMMARY | 2022-05-19 16:11 | XMS_ITS | Encounter Summary ---
:1990 Author Organization [facility] Address [address] [place] [address] Care Team Providers Name Role Phone Unavailable Primary Care Provider Unavailable Encounter Details Date Type Department Care Team Description 12/30/2010 Hospital Encounter [facility] Rowan Gonsales M.D. Social History Tobacco Use Types Packs/Day Years Used Date Smoking Tobacco: Never Assessed Sex Assigned at Date Recorded Not on file documented as of this encounter Progress Notes Rowan Gonsales M.D. - 12/30/2010 12:00 AM CDT [id number] CHIEF COMPLAINT/REASON FOR VISIT Abdominal pain. HISTORY [...] if that helps. She can get that xazu-yao-dzwilom or alternatively I told her she could try some Prilosec. She is to eat bland foods and maybe smaller amounts. If there is no improvement in a week to 10 days or if it is worse before then she is to return. Rowan Gonsales M.D. / Electronically Signed By: ROWAN GONSALES MD On: 12/30/2010 12:29 Source: [facility] MHSDOLBEYNONRADSYS Document Id: [id number] documented in this encounter Miscellaneous Notes Miscellaneous [...] GONSALES MD - 12/30/2010 11:30 CDT Source: [employer] Document Id: [id number] CDT!5 Shashank - Cathleen Massey L.PAniaNAnia - [...] CDT Advance Directive Advanced Directives: No CATHLEEN MASSEY LPN - 12/30/2010 11:07 CDT Educ Needs Learning Style Preference Adult Grid Patient: None Family: None CATHLEEN MASSEY LPN - 12/30/2010 11:07 CDT Source: [employer] Document Id: [id number] CDT!31 Shashank - Cathleen Massey L.P.NAnia - 12/30/2010 11:05 AM CDT Adult Receiver Stocker Intake/History Adult Receiver Stocker Intake/History Entered On: 12/30/2010 11:07 CDT Performed [...] Amount: 2 cans Last Use: 11am CATHLEEN AMSSEY LPN - 12/30/2010 11:05 CDT Recreational Drug Use Grid Drug Use: None CATHLEEN MASSEY LPN - 12/30/2010 11:05 CDT Allergies Allergies (Active) NKA Estimated Onset Date: Unspecified ; Created By: CATHLEEN MASSEY LPN; Reaction Status: Active ;Category: Drug ; Substance: NKA ; Type: Allergy ; Updated By: CATHLEEN MASSEY LPN; Reviewed Date: 12/16/2010 9:25 CDT Source[facility] POWERCHART Document Id: [id number] CDT!36 documented in this encounter Plan of Treatment Not on filedocumented as of this encounter Visit Diagnoses Not on filedocumented in this encounter
--- OUTSIDE RECORDS SUMMARY | 2022-05-19 16:11 | XMS_ITS | Encounter Summary ---
:[address] [facility] Address [address] [place] [address] Care Team Providers Name Role Phone Unavailable Primary Care Provider Unavailable Encounter Details Date Type Department Care Team Description 01/05/2011 Hospital Encounter HX [facility] Ofelia Ricardo APRN, C.N.P., D. N.P. [address] [place] [phone] (Wo rk) Social History Tobacco Use Types Packs/Day Years Used Date Smoking Tobacco: Never Assessed Sex Assigned at Date Recorded Not on file documented as of this encounter Progress Notes Ofelia Ricardo APRN, C.N.P. - 01/05/2011 12:00 AM CDT [id number] CHIEF COMPLAINT/REASON FOR VISIT: 1. Is vaginal [...] /jak Electronically Signed By: OFELIA RICARDO RN, [facility] On: 01/05/2011 11:52 Source: [facility] MHSDOLBEYNONRADSYS Document Id: [id number] documented in this encounter Miscellaneous Notes Miscellaneous - Lesley Ledesma LAniaPAniaNAnia - 01/05/2011 8:12 AM CDT Adult Quality Reviewer Intake/History Adult Quality Reviewer Intake/History Entered On: 01/05/2011 8:15 CDT Performed [...] Tobacco Smoke: Patient smokes JOSE, LESLEY Nicole VB NET DEVELOPER - 01/05/2011 8:12 CDT Tobacco Use Grid Type: Cigarettes Cigarette Use Packs/Day: 0.5 Last Use: 10 min ago LESLEY GARCIA [facility] - 01/05/2011 8:12 CDT Alcohol Use: No LESLEY GARCIA VB NET DEVELOPER - 01/05/2011 8:12 CDT Caffeine Use Grid Caffeine Use: Current Type: Soft drinks Frequency: Weekly Amount: 2 cans Last Use: 11am LESLEY GARCIA VB NET DEVELOPER - 01/05/2011 8:12 CDT Recreational Drug Use Grid Drug Use: None LESLEY GARCIA VB NET DEVELOPER - 01/05/2011 8:12 CDT Allergies Allergies (Active) NKA Estimated Onset Date: Unspecified ; Created By: CATHLEEN KURTZ LPN; Reaction Status: Active ;Category: Drug ; Substance: NKA ; Type: Allergy ; Updated By: CATHLEEN KURTZ LPN; Reviewed Date: 01/05/2011 8:11 CDT Source: [facility] Document Id: [id number] CDT!35 documented in this encounter Plan of Treatment Not on filedocumented as of this encounter Visit Diagnoses Not on filedocumented in this encounter
--- OUTSIDE RECORDS SUMMARY | 2022-05-19 16:11 | XMS_ITS | Encounter Summary ---
:1990 Author Organization [facility] Address [address] [place] [address] Care Team Providers Name Role Phone Unavailable Primary Care Provider Unavailable Encounter Details Date Type Department Care Team Description 11/26/2009 Hospital Encounter [facility] INPT/OBSRV Sánchez Roland L, GRIS, C.N.P., D.N.P. [address] [place] [address] (Wo rk) Social History Tobacco Use Types Packs/Day Years Used Date Smoking Tobacco: Never Assessed Sex Assigned at Date Recorded Not on file documented as of this encounter Plan of Treatment Not on filedocumented as of this encounter Visit Diagnoses Not on filedocumented in this encounter
--- OUTSIDE RECORDS SUMMARY | 2022-05-19 16:11 | XMS_ITS | Encounter Summary ---
:1990 Author Organization [facility] Address [address] [place] [address] Care Team Providers Name Role Phone Unavailable Primary Care Provider Unavailable Encounter Details Date Type Department Care Team Description 11/05/2010 Hospital En[facility] INPT/OBSRV Carol Mendes M.D. Social History Tobacco Use Types Packs/Day Years Used Date Smoking Tobacco: Never Assessed Sex Assigned at Date Recorded Not on file documented as of this encounter Plan of Treatment Not on filedocumented as of this encounter Visit Diagnoses Not on filedocumented in this encounter
--- OUTSIDE RECORDS SUMMARY | 2022-05-19 16:11 | XMS_ITS | Encounter Summary ---
:[address] [facility] Address [address] [place] [address] Care Team Providers Name Role Phone Unavailable Primary Care Provider Unavailable Encounter Details Date Type Department Care Team Description 03/31/2010 Hospital Encounter [facility] INPT/OBSRV Nathalie Gerardo, P.A.-Zulema. [address] [place] [address] (Wo rk) Social History Tobacco Use Types Packs/Day Years Used Date Smoking Tobacco: Never Assessed Sex Assigned at Date Recorded Not on file documented as of this encounter Plan of Treatment Not on filedocumented as of this encounter Visit Diagnoses Not on filedocumented in this encounter
--- OUTSIDE RECORDS SUMMARY | 2022-05-19 16:11 | XMS_ITS | Encounter Summary ---
:1990 Author Organization [facility] Address [address] [place] [address] Care Team Providers Name Role Phone Unavailable Primary Care Provider Unavailable Encounter Details Date Type Department Care Team Description 07/03/2009 Hospital Encounter [facility] INPT/OBSRV Cecil Tipton M.D. [address] [place], [place] [address] (Wo rk) Social History Tobacco Use Types Packs/Day Years Used Date Smoking Tobacco: Never Assessed Sex Assigned at Date Recorded Not on file documented as of this encounter Plan of Treatment Not on filedocumented as of this encounter Visit Diagnoses Not on filedocumented in this encounter
--- OUTSIDE RECORDS SUMMARY | 2022-05-19 16:11 | XMS_ITS | Encounter Summary ---
:1990 Author Organization [facility] Address [address] [place] [address] Care Team Providers Name Role Phone Unavailable Primary Care Provider Unavailable Encounter Details Date Type Department Care Team Description 06/28/2010 Hospital Encounter HX [facility] INPT/OBSRV Cecil Tipton M.D. [address] [place], [place] [address] (Wo rk) Social History Tobacco Use Types Packs/Day Years Used Date Smoking Tobacco: Never Assessed Sex Assigned at Date Recorded Not on file documented as of this encounter Plan of Treatment Not on filedocumented as of this encounter Visit Diagnoses Not on filedocumented in this encounter
--- OUTSIDE RECORDS SUMMARY | 2022-05-19 16:11 | XMS_ITS | Encounter Summary ---
:1990 Author Organization [facility] Address [address] [place] [address] Care Team Providers Name Role Phone Unavailable Primary Care Provider Unavailable Encounter Details Date Type Department Care Team Description 02/02/2010 Hospital Encounter HX [facility] INPT/OBSRV Nathalie Gerardo, P.A.-Zulema. [address] [place] [address] (Wo rk) Social History Tobacco Use Types Packs/Day Years Used Date Smoking Tobacco: Never Assessed Sex Assigned at Date Recorded Not on file documented as of this encounter Plan of Treatment Not on filedocumented as of this encounter Visit Diagnoses Not on filedocumented in this encounter
[2022-05-20 16:29] LABS: Strep B DNA Probe NEGATIVE (Negative)
== END 2022-05-19 16:09 | disposition home or self-care (01) ==
LOC: NFLDREF 16:08
PROVIDERS: Visit Provider Advanced Practice Midwife
DX: O98.513 Other viral diseases complicating pregnancy, third trimester (principal); U07.1 COVID-19; Z3A.38 38 weeks gestation of pregnancy
CPT/HCPCS: 76816; 76819; 87081; 87653

== ENCOUNTER 2022-05-25 14:45 | Outpatient (RCR) | payer OTHER, SELFPAY ==
--- NOTE | 2022-05-16 07:14 | URNOTE ---
Request received for prior authorization of Iron Sucrose [id number]. Per Cyndi dasilva [facility] no prior authorization is required for Iron Sucrose. Call Ref #[id number]
[2022-05-16 14:49] VITALS: BP 111/73; PULSE 128; RESP 16; TEMP 36.8; O2SAT 98
[2022-05-16] MEDS: IRON SUCROSE COMPLEX 200 MG in 0.9 % SODIUM CHLORIDE 100 ml 100 ML 440 MG IVPB (15:04)
[2022-05-16] MEDS: 0.9 % SODIUM CHLORIDE 250 ml IV (15:31)
[2022-05-16] MEDS: SODIUM CHLORIDE 0.9 % (FLUSH) 10 ML SYRINGE IVF (15:31)
[2022-05-18 14:35] VITALS: BP 113/67; PULSE 123; RESP 16; TEMP 37; O2SAT 99
[2022-05-18] MEDS: 0.9 % SODIUM CHLORIDE 250 ml IV (14:58)
[2022-05-18] MEDS: SODIUM CHLORIDE 0.9 % (FLUSH) 10 ML SYRINGE IVF (14:59)
[2022-05-18] MEDS: IRON SUCROSE COMPLEX 200 MG in 0.9 % SODIUM CHLORIDE 100 ml 100 ML 440 MG IVPB (14:59)
[2022-05-25] MEDS: SODIUM CHLORIDE 0.9 % (FLUSH) 10 ML SYRINGE IVF ×2 (14:52→15:38)
[2022-05-25] MEDS: 0.9 % SODIUM CHLORIDE 250 ml IV (14:52)
[2022-05-25] MEDS: IRON SUCROSE COMPLEX 200 MG in 0.9 % SODIUM CHLORIDE 100 ml 100 ML 440 MG IVPB (14:52)
[2022-05-25 15:02] VITALS: BP 114/78; PULSE 114; RESP 16; TEMP 36.8; O2SAT 97
== END 2022-11-12 23:59 | disposition home or self-care (01) ==
LOC: CCIC 14:45
PROVIDERS: Visit Provider Clinical Nurse Specialist
DX: O99.013 Anemia complicating pregnancy, third trimester (principal)
CPT/HCPCS: 96365; 96374; J1756; J7050

== ENCOUNTER 2022-05-27 10:54 | Outpatient (CLI) | payer OTHER, SELFPAY ==
--- OUTSIDE RECORDS SUMMARY | 2022-05-27 10:57 | XMS_ITS | Encounter Summary ---
:1990 Author Organization [facility] Address [address] [place] [address] Care Team Providers Name Role Phone Seda Solis P.A.-C. Primary Care Provider Encounter Details Date Type Department Care Team Description 02/13/2019 Nurse Triage Department of [facility], Jania Shipman R.N. Medicine, [facility], in [address] [place], [place], [place] [address] [place] [address] [place] [address] [phone] Social History Tobacco Use Types Packs/Day Years Used Date Smoking Tobacco: Never Smokeless Tobacco: Never Sex Assigned at Date Recorded Not on file documented as of this encounter Plan of Treatment Not on filedocumented as of this encounter Visit Diagnoses Not on filedocumented in this encounter Care Teams Trimmer Tailer Relationship Specialty Start Date End Date Seda Solis P.A.-C. PCP - General Family Medicine 06/27/18 07/24/19 documented as of this encounter
--- OUTSIDE RECORDS SUMMARY | 2022-05-27 10:57 | XMS_ITS | Clinical Summary ---
:1990 Author Organization [facility] Address [address] [place] [address] Care Team Providers Name Role Phone Judi Strickland APRN, C.N.P., D.N.P. Primary Care Provider Source Comments Patient records contain information from all sites at [facility]. For routine questions regarding patient records, call [phone] during business hours, M-F 8:00 AM - 5:00 PM Central Time. Record requests for emergency care only can be directed to [phone] at any time.[facility] Allergies No known active allergies Medications [...] (173 lb 8 oz) 10/11/2017 4:29 PM HEDIS REGISTERED NURSE RN Height 167.6 cm (5' 6) 09/15/2017 11:20 AM HEDIS REGISTERED NURSE RN Body Mass Index 28 09/15/2017 11:20 AM HEDIS REGISTERED NURSE RN Plan of Treatment Health Maintenance Due Date [...] ype Group Dates [place] [employer] [id number] 2018-Prese [address] Medicaid HMO [place] [address] [facility] [place] [address] Care Teams Rack Room Worker Relationship Specialty Start Date End Date Judi Strickland, GRIS, C.N.P., D.N.P. PCP - General 07/25/[id number] [place] [address] [place] [address]
--- OUTSIDE RECORDS SUMMARY | 2022-05-27 10:57 | XMS_ITS | Encounter Summary ---
:1990 Author Organization [facility] Address [address] [place] [address] Care Team Providers Name Role Phone Judi Strickland APRN C.N.P., D.N.P. Primary Care Provider Reason for Referral Outpatient (Routine) - Authorized Specialty Diagnoses / Procedures Referred By Contact Refer red To Contact Family Medicine Judi Strickland APRN, [facility] C.N.P., D.N.P. [address] [place] [phone] Referral ID Status Reason Start Date Expiration Date Visits V isits Requested Authorized [id number] Authorized 03/08/2022 03/08/2023 1 1 Encounter Details Date Type Department Care Team Description 03/08/2022 Orders Only [facility] PCP TH EMILIANOT Sa marshall Givens M.D. [address] [place], [place] [phone] (Wo rk) Social History Tobacco Use Types Packs/Day Years Used Date Smoking Tobacco: Never Smokeless Tobacco: Never Sex Assigned at Date Recorded Not on file documented as of this encounter Plan of Treatment Scheduled Referrals Name Type Priority Associated Diagnoses [facility] Outpatient Referral Routine Expec jacob: office visit 03/22/2022, (clinic) Expires: 09/04/2022 documented as of this encounter Visit Diagnoses Not on filedocumented in this encounter Care Teams Lockstitch Hemmer Relationship Specialty Start Date End Date Jdui Strickland APRN, C.N.P., D.N.P. PCP - General 07/25/[phone] [phone] documented as of this encounter
--- OUTSIDE RECORDS SUMMARY | 2022-05-27 10:57 | XMS_ITS | Encounter Summary ---
:1990 Author Organization [facility] Address [address] [place] [address] Care Team Providers Name Role Phone Judi Strickland APRN, C.N.P., D.N.P. Primary Care Provider Encounter Details Date Type Department Care Team Description 06/08/2021 Orders Only [facility] Judi Strickland APRN, C.N.P., D.N.P. [address] [place] [address] [place] [phone] (Wo rk) Social History Tobacco Use Types Packs/Day Years Used Date Smoking Tobacco: Never Smokeless Tobacco: Never Sex Assigned at Date Recorded Not on file documented as of this encounter Plan of Treatment Not on filedocumented as of this encounter Visit Diagnoses Not on filedocumented in this encounter Care Teams Video Game Technician Relationship Specialty Start Date End Date Judi Strickland APRN, C.N.P., D.N.P. PCP - General 07/25/[id number] [place] [phone] documented as of this encounter
--- OUTSIDE RECORDS SUMMARY | 2022-05-27 10:57 | XMS_ITS | Encounter Summary ---
:1990 Author Organization [facility] Address [address] [place] [address] Care Team Providers Name Role Phone Unavailable Primary Care Provider Unavailable Encounter Details Date Type Department Care Team Description 06/03/2015 Hospital Encounter HX [facility] FAMILY ME Anne-Marie Ricardo APRN, C.N.P., D. N.P. [address] [place] [phone] (Wo rk) Social History Tobacco Use [...] APRN, C.N.P. - 06/03/2015 7:36 AM CDT [id number] CHIEF COMPLAINT/REASON FOR VISIT Sore throat. HISTORY [...] RN, CNP On: 06/10/2015 07:48 AM Source: [facility] MHSDOLBEYNONRADSYS Document Id: [id number] documented in this encounter Miscellaneous Notes Miscellaneous - Anne-Marie Ricardo APRN, C.N.P. - 06/03/2015 8:23 AM CDT Ambulatory Patient Summary [address] [place] [id number] Visit Information Name: ARIS LEOS [facility] Number: [id number] Current Date: 06/03/2015 08:23:04 Physicians Attending Provider: ANNE-MARIE RICARDO RN, BIBLIOGRAPHIC SERVICES SPECIALIST Primary Care Provider: ANNE-MARIE RICARDO RN, BIBLIOGRAPHIC SERVICES SPECIALIST ARIS LEOS LELIA has been given the [...] day x 10 day(s) New Routed to [address] [address] Stop Taking the Following Medications: Medication list [...] emergency. Electronically Signed By: ANNE-MARIE RICARDO RN, BIBLIOGRAPHIC SERVICES SPECIALIST Signed On:03-JUN-2015 08:19:31 Your Allergies & Intolerances [...] if you dont have one. Go to [email or web address] and click on Create Your Account. Then, follow the directions to complete the online form. Youll be asked for your [facility] number which you can find at the top of this document. Your Goals/Additional instructions: Source: [facility] POWERCHART Document Id: [id number] Shashank - Anne-Marie Ricardo APRN, Zulema.N.P. - 06/03/2015 8:23 AM CDT Ambulatory Discharge Medication List [address] [id number] Visit Information Name: ARIS LEOS [facility] Number: [id number] Visit Date: 06/03/2015 08:23:03 Attending Provider: ANNE-MARIE RICARDO RN, THERESA Primary Care Provider: ANNE-MARIE RICARDO RN, THERESA ARSI LEOS has been given the following list [...] day x 10 day(s) New Routed to [address] [place] [address] Stop Taking the Following Medications: Medication list [...] THERESA Signed On:03-JUN-2015 08:19:31 Additional Information: Source: [facility] POWERCHART Document Id: [id number] Miscellaneous - Dewey Duong L.P.N. - 06/03/2015 7:39 AM CDT Adult Program Support Clerk Intake/History Adult Program Support Clerk Intake/History Entered On: 06/03/2015 7:43 CDT Performed [...] 06/03/2015 7:39 CDT General Info Languages : Kazakh Is Patient Female and 13-50 no hysterectomy [...] Grid Drug Use : None DEWEY DUONG [employer] - 06/03/2015 7:39 CDT Source: [facility] POWERCHART Document Id: [id number] CDT!47 documented in this encounter Plan of Treatment Not on filedocumented as of this encounter Procedures Procedure Name Priority Date/Time Associated Diagnosis Comme nts RAPID STREP A Routine 06/03/2015 7:50 AM Results for this SCREEN CDT procedure are i n the results section. documented in this encounter Results (ABNORMAL) Rapid Strep A Screen (06/03/2015 7:50 AM CDT) [facility] Method Time Signature HXStrep A (POSITIVE) [...]
--- OUTSIDE RECORDS SUMMARY | 2022-05-27 10:57 | XMS_ITS | Encounter Summary ---
:1990 Author Organization [facility] Address [address] [place] [address] Care Team Providers Name Role Phone Unavailable Primary Care Provider Unavailable Encounter Details Date Type Department Care Team Description 11/18/2014 Hospital Encounter HX [facility]ILY ME Brenna Craig, GRIS, C.N.P., D. N.P. [address] [place] [address] (Wo rk) Social History Tobacco Use Types Packs/Day Years Used Date Smoking Tobacco: Never Assessed Sex Assigned at Date Recorded Not on file documented as of this encounter Last Filed Vital Signs Vital Sign Reading Time Taken Comments Blood Pressure 131/97 11/18/2014 1:19 PM STUDENT RECORDS COORDINATOR Pulse 105 11/18/2014 1:19 PM STUDENT RECORDS COORDINATOR Temperature - - Respiratory Rate 14 11/18/2014 1:19 PM STUDENT RECORDS COORDINATOR Oxygen Saturation - - Inhaled Oxygen Concentration - - Weight - - Height 166 cm (5' 5.35) 11/18/2014 1:19 PM STUDENT RECORDS COORDINATOR Body Mass Index - - documented in this encounter Progress Notes Brenna Craig, D.N.P., C.N.P. - 11/18/2014 1:11 PM CST [id number] CHIEF COMPLAINT/REASON FOR VISIT Rash. HISTORY OF [...] DNP, FNP On: 11/18/2014 03:38 PM Source: [facility] Document Id: [id number] ENT RECORDS COORDINATOR documented in this encounter Miscellaneous Notes Miscellaneous - Brenna Craig D.N.P., C.N.P. - 11/18/2014 2:20 PM STUDENT RECORDS COORDINATOR Ambulatory Patient Summary [address] [id number] Visit Information Name: ARIS LEOS [facility] Number: [id number] Current Date: 11/18/2014 14:20:13 Physicians Attending Provider: BRENNA CRAIG DNP, FNP Primary Care Provider: OFELIA RICARDO RN, ELEVATOR STARTER ARIS LEOS has been given the following [...] day x 10 day(s) New Routed to [facility] [address] [address] Stop Taking the Following Medications: Medication list [...] appointment detail needed. Your Goals/Additional instructions: Source: [facility] POWERCHART Document Id: [id number] ENT RECORDS COORDINATOR Miscellaneous - Brenna Craig D.Cecil.Jie., C.N.P. - 11/18/2014 2:20 PM STUDENT RECORDS COORDINATOR Ambulatory Discharge Medication List [address] [id number] Visit Information Name: ARIS LEOS [facility] Number: [id number] Visit Date: 11/18/2014 14:20:12 Attending Provider: BRENNA CRAIG DNP, DHIRAJ Primary Care Provider: OFELIA RICARDO RN, ELEVATOR STARTER ARIS LEOS has been given the following [...] day x 10 day(s) New Routed to [facility] [address] [address] Stop Taking the Following Medications: Medication list [...] FNP Signed On:18-NOV-2014 13:58:15 Additional Information: Source: [facility] POWERCHART Document Id: [id number] ENT RECORDS COORDINATOR Miscellaneous - Rina Caballero L.P.NAnia - 11/18/2014 1:25 PM CST Health Assessment Health Assessment Entered On: 11/18/2014 13:25 STUDENT RECORDS COORDINATOR Performed On: 11/18/2014 13:25 STUDENT RECORDS COORDINATOR by RINA CABALLERO LPN Health Assessment Complete Health Assessment Complete or Modified : Annual Health Assessment Annual Health Assessment Completed : Yes RINA CABALLERO LPN - 11/18/2014 13:25 STUDENT RECORDS COORDINATOR Nutrition Nutrition Risk Factors by History Adult : Unintentional weight loss greater than 10 lbs in last 6 months RINA CABALLERO [facility] - 11/18/2014 13:25 STUDENT RECORDS COORDINATOR Functional Current Daily Living Assistance : None RINA CABALLERO LPN - 11/18/2014 13:25 STUDENT RECORDS COORDINATOR Dependent Habits Tobacco Use/Currently Using : No Tobacco Use/Last 12 months : No Tobacco Use/Advised to Quit : No Exposure to Tobacco Smoke : Care provider denies smoking in home Smoking Status : Never smoker RINA CABALLERO [facility] - 11/18/2014 13:25 STUDENT RECORDS COORDINATOR Tobacco Use Grid Type : Cigarettes Cigarette Use Packs/Day : 0.5 Last Use : 09-20-13 RINA CABALLERO [facility] - 11/18/2014 13:25 STUDENT RECORDS COORDINATOR Caffeine Use Grid Caffeine Use : None Last Use : 09-20-13 RINA CABALLERO [facility] - 11/18/2014 13:25 STUDENT RECORDS COORDINATOR Recreational Drug Use Grid Drug Use : None RINA CABALLERO [facility] - 11/18/2014 13:25 STUDENT RECORDS COORDINATOR Psychosocial Domestic Abuse Concerns : None Yarsani Preference : No qualifying data available. RINA CABALLERO AUDOGRAPH OPERATOR - 11/18/2014 13:25 STUDENT RECORDS COORDINATOR Advance Directive Advanced Directives : No Advance Directive Additional Information : No RINA CABALLERO LPN - 11/18/2014 13:25 STUDENT RECORDS COORDINATOR Educ Needs Learning Style Preference Adult Grid Patient : None Family : None RINA CABALLERO LPN - 11/18/2014 13:25 STUDENT RECORDS COORDINATOR [facility] POWER[facility] Document Id: [id number] STUDENT RECORDS COORDINATOR!36 ENT RECORDS COORDINATOR Miscellaneous - Rina Caballero L.P.N. - 11/18/2014 1:25 PM CST Meaningful Use Influenza Exclusion Meaningful Use Influenza Exclusion Entered On: 11/18/2014 13:25 STUDENT RECORDS COORDINATOR Performed On: 11/18/2014 13:25 STUDENT RECORDS COORDINATOR by RINA CABALLERO LPN Influenza Vaccine Exclusion Influenza Vaccine Exclusion : Patient declined RINA CABALLERO LPN - 11/18/2014 13:25 STUDENT RECORDS COORDINATOR [facility] Document Id: [id number] STUDENT RECORDS COORDINATOR!3 ENT RECORDS COORDINATOR Miscellaneous - Rina Caballero L.P.N. - 11/18/2014 1:19 PM CST Adult Analysis Internship Intake/History Adult Analysis Internship Intake/History Entered On: 11/18/2014 13:24 STUDENT RECORDS COORDINATOR Performed On: 11/18/2014 13:19 STUDENT RECORDS COORDINATOR by RINA CABALLERO LPN Intake Chief Complaint [...] inch(es)) RINA CABALLERO LPN - 11/18/2014 13:19 STUDENT RECORDS COORDINATOR General Info Information Given By : Patient Languages : Azerbaijani Is Patient Female and 13-50 no hysterectomy : Yes Status : Patient denies Are you ? : No RINA CABALLERO LPN - 11/18/2014 13:19 STUDENT RECORDS COORDINATOR Subjective Pain Symptoms : No RINA CABALLERO [facility] - 11/18/2014 13:19 STUDENT RECORDS COORDINATOR Dependent Habits Tobacco Use/Currently Using : No Tobacco Use/Last 12 months : No Tobacco Use/Advised to Quit : No Exposure to Tobacco Smoke : Care provider denies smoking in home Smoking Status : Never smoker GEORGIANARINA Mary [facility] - 11/18/2014 13:19 STUDENT RECORDS COORDINATOR Tobacco Use Grid Type : Cigarettes Cigarette Use Packs/Day : 0.5 Last Use : 09-20-13 GEORGIANARINA JANE [facility] - 11/18/2014 13:19 STUDENT RECORDS COORDINATOR Caffeine Use Grid Caffeine Use : None Last Use : 09-20-13 GEORGIANA RINA [facility] - 11/18/2014 13:19 STUDENT RECORDS COORDINATOR Recreational Drug Use Grid Drug Use : None GEORGIANARINA Mary [facility] - 11/18/2014 13:19 STUDENT RECORDS COORDINATOR ID Screen Drug Resistant Organism : No Travel Within Last 21 Days : No GEORGIANARINA Mary [facility] - 11/18/2014 13:19 STUDENT RECORDS COORDINATOR Source: [facility] ConnectCHART Document Id: [id number] STUDENT RECORDS COORDINATOR!43 ENT RECORDS COORDINATOR documented in this encounter Plan of Treatment Not on filedocumented as of this encounter Procedures Procedure Name Priority Date/Time Associated Diagnosis Comme nts N GONOR AMP SRC Routine 11/18/2014 2:06 PM Result s for this STUDENT RECORDS COORDINATOR procedure are i n the results section. N GONOR AMP DNA Routine 11/18/2014 2:06 PM Result s for this STUDENT RECORDS COORDINATOR procedure are i n the results section. C TRACH AMP SRC Routine 11/18/2014 2:06 PM Result s for this STUDENT RECORDS COORDINATOR procedure are i n the results section. C TRACH AMP RNA Routine 11/18/2014 2:06 PM Result s for this STUDENT RECORDS COORDINATOR procedure are i n the results section. documented in this encounter Results HX-N gonor Amp DNA (11/18/2014 2:06 PM STUDENT RECORDS COORDINATOR) P athologist Signature HXN gonor Amp Negative POWERCHART DNA-[place] Specimen (Source) Anatomical Collection Method Collection Time Re ceived Time Location / / Volume Laterality 11/18/2014 2:06 PM STUDENT RECORDS COORDINATOR Narrative POWERCHART - 11/20/2014 6:00 PM STUDENT RECORDS COORDINATOR Test Performed by: [address] [address] Resistor Inspector: Garth Diaz II, M.D., Ph.D. Brenna Craig APRN, C.N.P., D.N.P. LAB HISTORICAL ORDERS Performing Organization Address City/State/ZIP Code Phon e Number POWERCHART HX-N gonor Amp Src (11/18/2014 2:06 PM STUDENT RECORDS COORDINATOR) athologist Signature HXN gonor Amp urine POWERCHART Src-[place] Specimen (Source) Anatomical Collection Method Collection Time Re ceived Time Location / / Volume Laterality 11/18/2014 2:06 PM STUDENT RECORDS COORDINATOR Brenna Craig APRN, C.N.P., D.N.P. LAB HISTORICAL ORDERS Performing Organization Address City/[facility]/ZIP Code Phon e Number POWERCHART HX-C trach Amp RNA (11/18/2014 2:06 PM STUDENT RECORDS COORDINATOR) [facility] gist Method Time Signature Chlamydia Negative POWERCHART trachomatis amplified RNA Specimen (Source) Anatomical Collection Method Collection Time Re ceived Time Location / / Volume Laterality 11/18/2014 2:06 PM STUDENT RECORDS COORDINATOR Brenna Craig APRN, C.N.P., D.N.P. LAB HISTORICAL ORDERS Performing Organization Address City/[facility]/ZIP Code Phon e Number POWERCHART HX-C trach Amp Src (11/18/2014 2:06 PM STUDENT RECORDS COORDINATOR) athologist Signature HXC trach Amp urine POWERCHART Src-[place] Specimen (Source) Anatomical Collection Method Collection Time Re ceived Time Location / / Volume Laterality 11/18/2014 2:06 PM STUDENT RECORDS COORDINATOR Brenna Craig APRN, C.N.P., D.N.P. LAB HISTORICAL ORDERS Performing Organization Address City/State/ZIP Code Phon e Number POWERCHART documented in this encounter Visit Diagnoses Not on filedocumented in this encounter
--- OUTSIDE RECORDS SUMMARY | 2022-05-27 10:57 | XMS_ITS | Encounter Summary ---
:[address] [facility] Address [address] [place] [address] Care Team Providers Name Role Phone Judi Strickland APRN, C.N.P., D.N.P. Primary Care Provider Encounter Details Date Type Department Care Team Description 10/18/2021 Clinical Communication Department of Nayeli Toscano Obstetrics and [facility] Gynecology in [address] [address] [place], [place] [phone] (Work) [phone] Social History Tobacco Use Types Packs/Day Years Used Date Smoking Tobacco: Never Smokeless Tobacco: Never Sex Assigned at Date Recorded Not on file documented as of this encounter Miscellaneous Notes Telephone Encounter - Kalyani Bardales R.N. - 10/20/2021 9:37 AM CST Spoke with patient. States that she is unsure if she is planning to come through or [place]. Will call back when decides where she wants her care. PATCHER Telephone Encounter - Carleen Fontaine - 10/18/2021 4:44 PM CST New ob PATCHER documented in this encounter Plan of Treatment Not on filedocumented as of this encounter Visit Diagnoses Not on filedocumented in this encounter Care Teams Plate Grainer Apprentice Relationship Specialty Start Date End Date Judi Strickland APRN, C.N.P., D.N.P. PCP - General 07/25/[address] [place] [phone] documented as of this encounter
--- OUTSIDE RECORDS SUMMARY | 2022-05-27 10:57 | XMS_ITS | Encounter Summary ---
:1990 Author Organization [facility] Address [address] [place] [address] Care Team Providers Name Role Phone Unavailable Primary Care Provider Unavailable Encounter Details Date Type Department Care Team Description 06/24/2016 Hospital Encounter HX [facility] [place] Isabela Solis, P.A.-C. [address] [place], [place] [phone] (Wo rk) Social History Tobacco Use Types [...] GUSTAFSON P.A.-C. On: 06/27/2016 01:37 PM Source: [employer] Document Id: [id number] documented in this encounter Miscellaneous Notes Miscellaneous - Dewey Duong L.P.N. - 06/24/2016 4:04 PM CDT Adult Curator Of Collections Intake/History Adult Curator Of Collections Intake/History Entered On: 06/24/2016 16:08 CDT Performed [...] 06/24/2016 16:04 CDT General Info Languages : Senegalese Is Patient Female and 13-50 no hysterectomy [...] DUONG LPN - 06/24/2016 16:04 CDT Source: [facility] POWERCHART Document Id: [id number] CDT!39 documented in this encounter Plan of Treatment Not on filedocumented as of this encounter Visit Diagnoses Not on filedocumented in this encounter
--- OUTSIDE RECORDS SUMMARY | 2022-05-27 10:57 | XMS_ITS | Encounter Summary ---
:1990 Author Organization [facility] Address [address] [place] [address] Care Team Providers Name Role Phone Elsewhere, Pcp Primary Care Provider Unavailable Encounter Details Date Type Department Care Team Description 09/05/2017 Orders Only Department of Family Medicine, Elsewhere, Pcp [facility], in [address] [phone] Social History Tobacco Use Types Packs/Day Years Used Date Smoking Tobacco: Never Sex Assigned at Date Recorded Not on file documented as of this encounter Plan of Treatment Not on filedocumented as of this encounter Visit Diagnoses Not on filedocumented in this encounter Care Teams Engineering Mechanic Relationship Specialty Start Date End Date Elsewhere, Pcp PCP - General Family Medicine 09/05/17 06/26/18 documented as of this encounter
--- OUTSIDE RECORDS SUMMARY | 2022-05-27 10:57 | XMS_ITS | Encounter Summary ---
:1990 Author Organization [facility] Address [address] [place] [address] Care Team Providers Name Role Phone Judi Strickland APRN, C.N.P., D.N.P. Primary Care Provider Reason for Visit Reason Onset Date Comments Testing For Upper Respiratory Virus Symptoms 11/09/2021 Encounter Details Date Type Department Care Team Description 11/09/2021 External Outreach Department of [facility] Leann Garrido Contact With And Medicine, [place] Flaquita ZamoranoARamakrishna (Suspected) Exposure Clinic, in [address] To COVID-19 (Primary [place], [place] Dx) [address] [facility] [address] [place], [place] [phone] (Work) [phone] Social History Tobacco Use Types Packs/Day Years Used Date Smoking Tobacco: Never Smokeless Tobacco: Never Sex Assigned at Date Recorded Not on file documented as of this encounter Progress Notes Betty Sky R.N. - 11/09/2021 8:34 AM CST Encounter created for symptomatic infectious disease screening with possible COVID, Influenza, RSV, and/or Group A Strep testing. OR DEVELOPER documented in this encounter Plan of Treatment Not on filedocumented as of this encounter Procedures Procedure Name Priority Date/Time Associated Diagnosis Comme nts SARS CORONAVIRUS-2 Routine 11/10/2021 3:51 PM Contact With And Results for this RNA, V SENIOR DEVELOPER (Suspected) Exposure procedu re are in To COVID-19 the results section. documented in this encounter Results SARS Coronavirus-2 RNA, V Symptomatic (11/10/2021 3:51 PM SENIOR DEVELOPER) [facility] Method Time Signature SARS-CoV-2 Swab, 11/11/2021 ECLR Specimen Nasopharynx 7:22 AM SENIOR DEVELOPER Source SARS CoV-2 Undetected Undetected 11/11/2021 ECLR RNA, TMA 7:22 AM SENIOR DEVELOPER Comment: SARS-CoV-2 RNA absent. This result does not rule out COVID-19 in the patient, as the sensitivity of the test depends o n the timing of the specimen collection and the quality of the specim en. Result should be correlated with patient's history and clinical presentat ion. ----ADDITIONAL INFORMATION---- This molecular amplification test was pe rformed using the Aptima SARS-CoV-2 assay ([employer] on the Silenseeds tem under emergency use authorization (EUA) by the U.S. Food and Drug Administ ration. Fact sheets for this EUA assay can be fo und at the following links: For Healthcare Providers: https://www.hiyalife a.gov/media/605347/download For Patients: https://www.fda.gov/media/ 268316/download Specimen Anatomical Collection Method Collection Time Receive d Time (Source) Location / / Volume Laterality Varies 11/10/2021 3:51 PM 9:57 (Nasopharynx) SENIOR DEVELOPER PM SENIOR DEVELOPER [place] Garrido P.A.-C. LAB MICROBIOLOGY - GENERAL O RDERABLES Performing Organization Address City/State/ZIP Code Phon e Number [facility]- [address] [place] [address] [phone] [facility] [place] [address] [address] documented in this encounter Visit Diagnoses Diagnosis Contact With And (Suspected) Exposure To COVID-19 - Primary documented in this encounter Additional Health Concerns Infection Onset Date Last Indicated Resolved Time COVID19 Pending 11/09/2021 11/10/2021 11/11/2021 7:23 AM SENIOR DEVELOPER documented as of this encounter Care Teams Program Development Specialist Relationship Specialty Start Date End Date Judi Strickland APRN, C.N.P., D.N.P. PCP - General 07/25/[address] [place] [phone] documented as of this encounter
--- OUTSIDE RECORDS SUMMARY | 2022-05-27 10:57 | XMS_ITS | Encounter Summary ---
:1990 Author Organization [facility] Address [address] [place] [address] Care Team Providers Name Role Phone Elsewhere, Pcp Primary Care Provider Unavailable Encounter Details Date Type Department Care Team Description 10/12/2017 Hospital Encounter [facility] in [place], [place] C.N.P., D.N.P. [address] [facility] [address] [place] [phone] Social History Tobacco Use Types Packs/Day Years [...] this OR BILIARY DUCTS (most inpatients AM SHAVING MACHINE OPERATOR Quadrant procedu re are in and all the results outpatients) section. documented in this encounter Results US Gallbladder (10/12/2017 9:15 AM SHAVING MACHINE OPERATOR) Anatomical Region Laterality Modality Abdomen N/A Ultrasound Specimen (Source) Anatomical Collection Method Collection Time Re ceived Time Location / / Volume Laterality 10/12/2017 9:25 AM SHAVING MACHINE OPERATOR Impressions 10/12/2017 9:25 AM SHAVING MACHINE OPERATOR IMPRESSION: Normal gallbladder ultrasoun d. Narrative 10/12/2017 9:25 AM SHAVING MACHINE OPERATOR EXAM: US GALLBLADDER COMPARISON: None FINDINGS: Gallbladder: [...] Quadrant documented in this encounter Care Teams Hydraulic Miner Blasting Relationship Specialty Start Date End Date Elsewhere, Pcp PCP - General Family Medicine 09/05/17 06/26/18 documented as of this encounter
--- OUTSIDE RECORDS SUMMARY | 2022-05-27 10:57 | XMS_ITS | Encounter Summary ---
:1990 Author Organization [facility] Address [address] [place] [address] Care Team Providers Name Role Phone Judi Strickland APRN, C.N.P., D.N.P. Primary Care Provider Encounter Details Date Type Department Care Team Description 01/19/2021 Orders Only [facility] PCP [facility] Sa marshall Givens M.D. [address] [place], [place] [phone] (Wo rk) Social History Tobacco Use Types Packs/Day Years Used Date Smoking Tobacco: Never Smokeless Tobacco: Never Sex Assigned at Date Recorded Not on file documented as of this encounter Plan of Treatment Not on filedocumented as of this encounter Visit Diagnoses Not on filedocumented in this encounter Care Teams Juvenile Corrections Officer Relationship Specialty Start Date End Date Judi Strickland APRN, C.N.P., D.N.P. PCP - General 07/25/[address] [place] [address] EMILIANO Madrigal [phone] documented as of this encounter
--- OUTSIDE RECORDS SUMMARY | 2022-05-27 10:57 | XMS_ITS | Encounter Summary ---
:1990 Author Organization [facility] Address [address] [place] [address] Care Team Providers Name Role Phone Unavailable Primary Care Provider Unavailable Encounter Details Date Type Department Care Team Description 12/30/2011 Hospital Encounter HX [facility] [place] Carol Mendes M.D. Social History Tobacco Use [...] MARVA DUARTE - 12/30/2011 15:32 CDT Source: [facility] POWERCHART Document Id: [id number] CDT!7 documented in this encounter Nursing Notes [...] MARVA DUARTE - 12/30/2011 15:26 CDT Source: [employer] POWERCHART Document Id: [id number] CDT!14 documented in this encounter Plan of Treatment Not on filedocumented as of this encounter Visit Diagnoses Not on filedocumented in this encounter
--- OUTSIDE RECORDS SUMMARY | 2022-05-27 10:57 | XMS_ITS | Encounter Summary ---
:1990 Author Organization [facility] Address [address] [place] [address] Care Team Providers Name Role Phone Elsewhere, Pcp Primary Care Provider Unavailable Encounter Details Date Type Department Care Team Description 10/11/2017 Nurse Triage Department of Erica Zapata R.N. Medicine, [facility], in [place], [place] [address] [place] [phone] Social History Tobacco Use Types Packs/Day Years Used Date Smoking Tobacco: Never Smokeless Tobacco: Never Sex Assigned at Date Recorded Not on file documented as of this encounter Miscellaneous Notes Telephone Encounter - Erica Huertas R.N. - 10/11/2017 1:27 PM CST Patient was provided aftercare instructions. CT CHILL CASTING OPERATOR documented in this encounter Plan of Treatment Not on filedocumented as of this encounter Visit Diagnoses Not on filedocumented in this encounter Care Teams Laborer Salvage Relationship Specialty Start Date End Date Elsewhere, Pcp PCP - General Family Medicine 09/05/17 06/26/18 documented as of this encounter
--- OUTSIDE RECORDS SUMMARY | 2022-05-27 10:57 | XMS_ITS | Encounter Summary ---
:1990 Author Organization [facility] Address [address] [place] [address] Care Team Providers Name Role Phone Unavailable Primary Care Provider Unavailable Encounter Details Date Type Department Care Team Description 12/14/2016 Hospital Encounter HX [facility] [place] Sandra Baer APRN, C.N.P., D. N.P. [address] [place] [phone] (Wo rk) Social History Tobacco Use [...] No itching. She reports trying Boil Ease edzf-tjf-coopdww, without any improvement of symptoms. She is [...] # 21 cap(s), 0 Refill(s), Acute, Pharmacy: [facility] Est Pt Level 3 - 70610 - 15 min 2. Tachycardia NOS Stable. [...] of the content. Electronically Signed By: SUZANNE BEAR APRN, C.N.P., JameN.P On: 12/14/2016 01:49 PM Source: [facility] Document Id: [id number] documented in this encounter Miscellaneous Notes Telephone [...] From: SUZANNE BAER APRN, C.NAniaPAnia, D.N.P To: [place] Family [facility] Nurse Mayra; Sent: 12/14/2016 14:42:25 CDT Subject: RE: *Phone Message Keflex suspension was sent to [address] 3x/day for 7 days. Thanks. Addendum by TAVIA SAL LPN on December 14, 2016 14:23:06 CDT From: TAVIA SAL LPN ([place] [facility] Nurse Mayra) To: SUZANNE BAER APRN, C.N.P., D.N.P; Sent: 12/14/2016 14:23:06 CDT Subject: FW: *Phone Message Addendum by TAVIA SAL LPN on December 14, 2016 14:22:54 CDT please advise on change of medication. From: KENNETH BROWER To: [place] Family [facility] Nurse Mayra; Sent: 12/14/2016 14:19:32 [...] (howto dispose of them properly.) Return number: [phone] Message: Advice/Action: Source used: ( ) Verbalizes [...] back cell phone number ( ) Source: [facility] [employer] Document Id: [id number] Miscellaneous - Suzanne Baer APRN, C.N.P., D.N.P. - 12/14/2016 1:32 PM CDT Ambulatory Discharge Medication List [address] [id number] Visit Information Name: ARIS LEOS [facility] Number: [id number] Current Date: 12/14/2016 13:32:16 Attending [...] x 7 day(s) cellulitis New Routed to [address] [place] [address] Stop Taking the Following Medications: Medication list [...] D.N.P Signed On:14-DEC-2016 13:32:14 Additional Information: Source: [facility] POWERCHART Document Id: [id number] Miscellaneous - Suzanne Baer APRN, C.N.Jie., D.N.P. - 12/14/2016 1:32 PM CDT Ambulatory Patient Summary [address] [place] [id number] Visit Information Name: ARIS LEOS [facility] Number: [id number] Current Date: 12/14/2016 13:32:17 Physicians [...] x 7 day(s) cellulitis New Routed to [address] [address] Stop Taking the Following Medications: Medication list [...] if you dont have one. Go to [email or web address] and click on Create Your Account. Then, follow the directions to complete the online form. Youll be asked for your [facility] number which you can find at the top of this document. Your Goals/Additional instructions: Source: [facility] POWERCHART Document Id: [id number] Miscellaneous - Tavia Sal L.P.N. - 12/14/2016 1:14 PM CDT Adult Quality Control Microbiology Supervisor Intake/History Adult Quality Control Microbiology Supervisor Intake/History Entered On: 12/14/2016 13:18 CDT Performed [...] 12/14/2016 13:14 CDT General Info Languages : Bruneian Is Patient Female and 13-50 no hysterectomy [...] SAL LPN - 12/14/2016 13:14 CDT Source: [employer] Document Id: [id number] CDT!44 documented in this encounter Plan of Treatment Not on filedocumented as of this encounter Visit Diagnoses Not on filedocumented in this encounter
--- OUTSIDE RECORDS SUMMARY | 2022-05-27 10:57 | XMS_ITS | Encounter Summary ---
:1990 Author Organization [facility] Address [address] [place] [address] Care Team Providers Name Role Phone Judi Strickland APRN, C.N.P., D.N.P. Primary Care Provider Reason for Referral Outpatient (Routine) - Closed Specialty Diagnoses / Procedures Referred By Contact Refer red To Contact Family Medicine Judi Strickland APRN, [facility] C.N.P., D.N.P. [address] [place] [address] [place] [address] Referral ID Status Reason Start Date Expiration Date Visits Requ ested Visits Authorized [id number] Closed 03/19/2020 03/19/2021 1 1 Encounter Details Date Type Department Care Team Description 03/19/2020 Orders Only RST PCP [facility] Judi Strickland APRN, C.N.P., D.N.P. [address] [place] [phone] (Wo rk) Social History Tobacco Use Types Packs/Day Years Used Date Smoking Tobacco: Never Smokeless Tobacco: Never Sex Assigned at Date Recorded Not on file documented as of this encounter Plan of Treatment Scheduled Referrals Name Type Priority Associated Diagnoses Order S [facility] Family Medicine Outpatient Referral Routine Expec jacob: office visit 04/02/2020, (clinic) Expires: 03/19/2023 documented as of this encounter Visit Diagnoses Not on filedocumented in this encounter Care Teams Missionary Coordinator Relationship Specialty Start Date End Date Judi Strickland APRN, C.N.P., D.N.P. PCP - General 07/25/[phone] [phone] documented as of this encounter
--- OUTSIDE RECORDS SUMMARY | 2022-05-27 10:57 | XMS_ITS | Encounter Summary ---
:1990 Author Organization [facility] Address [address] [place] [address] Care Team Providers Name Role Phone Elsewhere, Pcp Primary Care Provider Unavailable Reason for Visit Reason Comments Other ingrown toenail very painful left big toe Appointment Request (Routine) - Closed Specialty Diagnoses / Procedures Referred By Contact Refer red To Contact Family Medicine Referral ID Status Reason Start Date Expiration Date Visits Requ ested Visits Authorized [id number] Closed 09/12/2017 03/11/2018 1 1 Encounter Details Date Type Department Care Team Description 09/15/2017 Office Visit Department of Family Martin Jay Ingro wn Toenail Medicine, [place] (Primary Dx) Clinic, [place] [address] [place] [phone] Social History Tobacco Use Types Packs/Day Years Used Date Smoking Tobacco: Never Smokeless Tobacco: Never Sex Assigned at Date Recorded Not on file documented as of this encounter Last Filed Vital Signs Vital Sign Reading Time Taken Comments Blood Pressure 125/82 09/15/2017 11:20 AM OUTREACH LIAISON Pulse 110 09/15/2017 11:20 AM OUTREACH LIAISON Temperature 37 ??C (98.6 ??F) 09/15/2017 11:20 AM OUTREACH LIAISON Respiratory Rate 16 09/15/2017 11:20 AM OUTREACH LIAISON Oxygen Saturation - - Inhaled Oxygen Concentration - - Weight 78.2 kg (172 lb 6.4 oz) 09/15/2017 11:20 AM OUTREACH LIAISON Height 167.6 cm (5' 6) 09/15/2017 11:20 AM OUTREACH LIAISON Body Mass Index 27.83 09/15/2017 11:20 AM OUTREACH LIAISON documented in this encounter H&P Notes Martin [...] for a wedge resection. See procedure note. EACH LIAISON documented in this encounter Procedure Notes Martin [...] 25 G Block technique: Four-sided ring block [place] injection procedure: Anatomic landmarks identified, incremental injection, [...] Up to date Complications: no immediate complications EACH LIAISON documented in this encounter Plan of Treatment Not on filedocumented as of this encounter Procedures Procedure Name Priority Date/Time Associated Diagnosis Comme nts AL EXCISN INGROWN Routine 09/15/2017 11:30 AM Ingrown Toenail Results for this TOENAIL OUTREACH LIAISON procedure are i n the results section. documented in this encounter Results AL EXCISN INGROWN TOENAIL (09/15/2017 11:30 AM OUTREACH LIAISON) Narrative MMODAL - 09/15/2017 11:30 AM OUTREACH LIAISON Martin Jay M.D. ? 09/16/2017 ??9:29 AM [...] G ??Block technique: ??Four-sided ring bl ock ??[place] injection procedure: ??Anatomic landmarks identified, incremental injection, [...] Primary documented in this encounter Care Teams Gi Tech Relationship Specialty Start Date End Date Elsewhere, Pcp PCP - General Family Medicine 09/05/17 06/26/18 documented as of this encounter
--- OUTSIDE RECORDS SUMMARY | 2022-05-27 10:57 | XMS_ITS | Encounter Summary ---
:1990 Author Organization [facility] Address [address] [place] [address] Care Team Providers Name Role Phone Judi Strickland APRN, C.N.P., D.N.P. Primary Care Provider Reason for Visit Reason Onset Date Comments Outpatient COVID-19 Testing 01/16/2020 Encounter Details Date Type Department Care Team Description 01/16/2020 External Outreach Department of [facility] Leann Garrido [facility] Medicine, [place] Lona PAniaARamakrishna Respiratory (Primary Clinic, in [place], [address] Dx) [place], [place] [address] [address] [place], [place] [phone] (Work) [phone] Social History Tobacco Use Types Packs/Day Years [...] SARS Coronavirus-2, PCR (01/16/2020 4:46 PM CDT) [facility] Method Time Signature SARS Swab, 01/17/2020 DTL [...] and its performa nce characteristics determined by [facility] in a manner co nsistent with CLIA requirements. Independent review by the U.S. Food and Drug Administration is pending. Visit the CDC website: https://www.cdc.gov/coronavirus/ ?? for the most recent guidelines on [place] virus testing. Fact Sheet for Healthcare Providers: (https://www.[employer] Coup/it-mmfil es/ Provider_Fact_Sheet_for_[facility]_COVI D-19.pdf) Fact Sheet for Patients: (https://www.[employer]oup/it-mmfil es/ Patient_Fact_Sheet_for_COVID-19.pdf) Specimen Anatomical Collection Method Collection Time Receive d Time (Source) Location / / Volume Laterality Varies 01/16/2020 4:46 PM 0 8:45 (Nasopharynx) CDT PM CDT Del Garrido P.A.-C. LAB MICROBIOLOGY - GENERAL O RDERABLES Performing Organization Address City/State/ZIP Code Phon e Number [facility] - [address] [place], [place] [address] [place] [address] [facility] [address] documented in this encounter Visit Diagnoses Diagnosis Infection Upper Respiratory - Primary documented in this encounter Care Teams Anesthesia Assistant Relationship Specialty Start Date End Date Judi Strickland APRN, C.N.P., D.N.P. PCP - General 07/25/[phone] [place] [phone] documented as of this encounter
--- OUTSIDE RECORDS SUMMARY | 2022-05-27 10:57 | XMS_ITS | Encounter Summary ---
:1990 Author Organization [facility] Address [address] [place] [address] Care Team Providers Name Role Phone Unavailable Primary Care Provider Unavailable Encounter Details Date Type Department Care Team Description 09/18/2012 Hospital Encounter HX [facility] FAMILY [place] Brenna Craig, GRIS, Zulema.N.P., D. N.P. [address] [place] [address] (Wo rk) Social History Tobacco Use Types Packs/Day Years Used Date Smoking Tobacco: Never Assessed Sex Assigned at Date Recorded Not on file documented as of this encounter Last Filed Vital Signs Vital Sign Reading Time Taken Comments Blood Pressure 116/68 09/18/2012 1:55 PM SUPERVISORY INVESTIGATIVE SPECIALIST Pulse 88 09/18/2012 1:55 PM SUPERVISORY INVESTIGATIVE SPECIALIST Temperature - - Respiratory Rate 18 09/18/2012 1:55 PM SUPERVISORY INVESTIGATIVE SPECIALIST Oxygen Saturation - - Inhaled Oxygen Concentration - - Weight 82.7 kg (182 lb 5.1 oz) 09/18/2012 1:55 PM SUPERVISORY INVESTIGATIVE SPECIALIST Height - - Body Mass Index 29.3 05/09/2012 12:45 PM CDT documented in this encounter Progress Notes Brenna Craig, D.N.P., C.N.P. - 09/18/2012 1:49 PM CST [id number] CHIEF COMPLAINT/REASON FOR VISIT Runny nose and [...] of. 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 She otherwise denies having any other further concerns or issues. She denies having any nausea or vomiting, shortness of breath, or difficulty breathing and reports that she has not had any changes in urination or bowel habits. She does report that she has been using lnky-yyr-qwyhxsh Tylenol to help with the symptoms with minimal symptom improvement. PAST MEDICAL/SURGICAL HISTORY Reviewed. Please see chart. FAMILY HISTORY Reviewed. Please see chart. CURRENT MEDICATIONS Reviewed. Please see chart. ALLERGIES Reviewed. Please see chart. PHYSICAL EXAMINATION OBJECTIVE: Patient is alert/oriented x 3. HEAD: Normocephalic/atraumatic. PUPILS: HARITHA. OROPHARYNX: [place] and moist. TMs: Bilateral TMs are clear, [...] will also plan on contacting her at [phone] regarding her urine gonorrhea and chlamydia results [...] DNP, FNP On: 09/20/2012 09:55 AM Source: [facility] MHSDOLBEYNONRADSYS Document Id: [id number] RVISORY INVESTIGATIVE SPECIALIST documented in this encounter Miscellaneous Notes Miscellaneous - Brenna Craig D.N.P., C.N.P. - 09/18/2012 2:56 PM SUPERVISORY INVESTIGATIVE SPECIALIST Ambulatory Patient Summary [address] [address] Visit Information Name: ARIS LEOS [facility] Number: [id number] Current Date: 09/18/2012 14:56:37 Physicians Attending Provider: BRENNA CRAIG DNP, FNP Primary Care Provider: OFELIA RICARDO RN, MANAGER CAMP Your Medications Here is a list of [...] No Appointments found Your Goals/Additional instructions: Source: [facility] POWERCHART Document Id: [id number] RVISORY INVESTIGATIVE SPECIALIST Miscellaneous - Brenna Craig D.N.P., C.N.P. - 09/18/2012 2:56 PM SUPERVISORY INVESTIGATIVE SPECIALIST Ambulatory Depart Summary [address] [address] Visit Information Name: ARIS LEOS [facility] Number: [id number] Visit Date: 09/18/2012 14:56:36 Attending Provider: BRENNA CRAIG DNP, SAWMILL MOULDER OPERATOR Primary Care Provider: OFELIA RICARDO RN, MANAGER CAMP ARIS LEOS has been given the following [...] your provider for clarification. Additional Information: Source: [facility] POWERCHART Document Id: [id number] RVISORY INVESTIGATIVE SPECIALIST Miscellaneous - Darius Sandoval, L.P.N. - 09/18/2012 1:55 PM CST Adult Insurance Instructor Intake/History Adult Insurance Instructor Intake/History Entered On: 09/18/2012 14:00 SUPERVISORY INVESTIGATIVE SPECIALIST Performed On: 09/18/2012 13:55 SUPERVISORY INVESTIGATIVE SPECIALIST by DARIUS SANDOVAL LPN Intake Chief Complaint [...] 82.70kg DARIUS SANDOVAL LPN - 09/18/2012 13:55 SUPERVISORY INVESTIGATIVE SPECIALIST Subjective Pain Symptoms : No DARIUS SANDOVAL LPN - 09/18/2012 13:55 SUPERVISORY INVESTIGATIVE SPECIALIST Dependent Habits Tobacco Use/Currently Using : Yes Exposure to Tobacco Smoke : Patient smokes Smoking Status : Current every day smoker DARIUS SANDOVAL LPN - 09/18/2012 13:55 SUPERVISORY INVESTIGATIVE SPECIALIST Tobacco Use Grid Type : Cigarettes Cigarette Use Packs/Day : 0.5 Last Use : 10 min ago DARIUS SANDOVAL LPN - 09/18/2012 13:55 SUPERVISORY INVESTIGATIVE SPECIALIST Alcohol Use : No DARIUS SANDOVAL LPN - 09/18/2012 13:55 SUPERVISORY INVESTIGATIVE SPECIALIST Caffeine Use Grid Caffeine Use : Current Type : Soft drinks Frequency : Weekly Amount : 2 cans Last Use : 11am DARIUS SANDOVAL LPN - 09/18/2012 13:55 SUPERVISORY INVESTIGATIVE SPECIALIST Recreational Drug Use Grid Drug Use : None DARIUS SANDOVAL LPN - 09/18/2012 13:55 SUPERVISORY INVESTIGATIVE SPECIALIST Allergy Allergies (Active) NKA Estimated Onset Date: Unspecified ; Created By: CATHLEEN KURTZ LPN; Reaction Status: Active ;Category: Drug ; Substance: NKA ; Type: Allergy ; Updated By: CATHLEEN KURTZ LPN; Reviewed Date: 09/18/2012 13:48 SUPERVISORY INVESTIGATIVE SPECIALIST Source: [facility] IGG Document Id: [id number] RVISORY INVESTIGATIVE SPECIALIST Miscellaneous - Darius Sandoval, L.P.N. - 09/18/2012 1:55 PM CST Health Assessment Health Assessment Entered On: 09/18/2012 14:00 SUPERVISORY INVESTIGATIVE SPECIALIST Performed On: 09/18/2012 13:55 SUPERVISORY INVESTIGATIVE SPECIALIST by DARIUS SANDOVAL LPN Health Assessment Complete Health Assessment Complete or Modified : Annual Health Assessment Annual Health Assessment Completed : Yes DARIUS SANDOVAL LPN - 09/18/2012 13:55 SUPERVISORY INVESTIGATIVE SPECIALIST Nutrition Nutrition Risk Factors by History Adult : None DARIUS SANDOVAL LPN - 09/18/2012 13:55 SUPERVISORY INVESTIGATIVE SPECIALIST Functional Current Daily Living Assistance : None DARIUS SANDOVAL LPN - 09/18/2012 13:55 SUPERVISORY INVESTIGATIVE SPECIALIST Dependent Habits Tobacco Use/Currently Using : Yes Exposure to Tobacco Smoke : Patient smokes Smoking Status : Current every day smoker DARIUS SANDOVAL LPN - 09/18/2012 13:55 SUPERVISORY INVESTIGATIVE SPECIALIST Tobacco Use Grid Type : Cigarettes Cigarette Use Packs/Day : 0.5 Last Use : 10 min ago DARIUS SANDOVAL [facility] 09/18/2012 13:55 SUPERVISORY INVESTIGATIVE SPECIALIST Alcohol Use : No DARIUS SANDOVAL [facility] 09/18/2012 13:55 SUPERVISORY INVESTIGATIVE SPECIALIST Caffeine Use Grid Caffeine Use : Current Type : Soft drinks Frequency : Weekly Amount : 2 cans Last Use : 11am DARIUS SANDOVAL [facility] 09/18/2012 13:55 SUPERVISORY INVESTIGATIVE SPECIALIST Recreational Drug Use Grid Drug Use : None DARIUS SANDOVAL [facility] 09/18/2012 13:55 SUPERVISORY INVESTIGATIVE SPECIALIST Psychosocial Domestic Abuse Concerns : None DARIUS SANDOVAL [facility] 09/18/2012 13:55 SUPERVISORY INVESTIGATIVE SPECIALIST Advance Directive Advanced Directives : No DARIUS SANDOVAL [facility] 09/18/2012 13:55 SUPERVISORY INVESTIGATIVE SPECIALIST Educ Needs Learning Style Preference Adult Grid Patient : None Family : None DARIUS SANDOVAL [facility] 09/18/2012 13:55 SUPERVISORY INVESTIGATIVE SPECIALIST Source: [facility] POWERCHART Document Id: [id number] RVISORY INVESTIGATIVE SPECIALIST documented in this encounter Plan of Treatment Not on filedocumented as of this encounter Procedures Procedure Name Priority Date/Time Associated Diagnosis Comme nts INFLUENZA A/B Routine 09/18/2012 2:34 PM Results for this SUPERVISORY INVESTIGATIVE SPECIALIST procedure are i n the results section. N GONOR AMP SRC Routine 09/18/2012 2:33 PM Result s for this SUPERVISORY INVESTIGATIVE SPECIALIST procedure are i n the results section. N GONOR AMP DNA Routine 09/18/2012 2:33 PM Result s for this SUPERVISORY INVESTIGATIVE SPECIALIST procedure are i n the results section. C TRACH AMP SRC Routine 09/18/2012 2:33 PM Result s for this SUPERVISORY INVESTIGATIVE SPECIALIST procedure are i n the results section. C TRACH AMP RNA Routine 09/18/2012 2:33 PM Result s for this SUPERVISORY INVESTIGATIVE SPECIALIST procedure are i n the results section. documented in this encounter Results (ABNORMAL) Influenza A/B (09/18/2012 2:34 PM SUPERVISORY INVESTIGATIVE SPECIALIST) [facility] Method Time Signature HXInfluenza A (POSITIVE POWERCHART [...] / Volume Laterality Nasal 09/18/2012 2:34 PM SUPERVISORY INVESTIGATIVE SPECIALIST Brenna Craig APRN, C.N.P., D.N.P. LAB MICROBIOLO GY - GENERAL ORDERABLES Performing Organization Address City/State/ZIP Code Phon e Number POWERCHART HX-N gonor Amp DNA (09/18/2012 2:33 PM SUPERVISORY INVESTIGATIVE SPECIALIST) athologist Signature HXN gonor Amp Negative POWERCHART DNA-[place] Specimen (Source) Anatomical Collection Method Collection Time Re ceived Time Location / / Volume Laterality 09/18/2012 2:33 PM SUPERVISORY INVESTIGATIVE SPECIALIST Narrative POWERCHART - 09/20/2012 8:45 AM SUPERVISORY INVESTIGATIVE SPECIALIST Test Performed by: [place] [address] Training Program Assistant: Raji encarnacion III, M.D. Brenna Craig APRN C.N.P., D.N.P. LAB HISTORICAL ORDERS Performing Organization Address City/[facility]/ZIP Code Phon e Number POWERCHART HX-N gonor Amp Src (09/18/2012 2:33 PM SUPERVISORY INVESTIGATIVE SPECIALIST) athologist Signature HXN gonor Amp urine POWERCHART Src-[place] Specimen (Source) Anatomical Collection Method Collection Time Re ceived Time Location / / Volume Laterality 09/18/2012 2:33 PM SUPERVISORY INVESTIGATIVE SPECIALIST Brenna Craig APRN, C.N.P., D.N.P. LAB HISTORICAL ORDERS Performing Organization Address City/State/ZIP Code Phon e Number POWERCHART HX-C trach Amp RNA (09/18/2012 2:33 PM SUPERVISORY INVESTIGATIVE SPECIALIST) [facility] gist Method Time Signature Chlamydia Negative POWERCHART trachomatis amplified RNA Specimen (Source) Anatomical Collection Method Collection Time Re ceived Time Location / / Volume Laterality 09/18/2012 2:33 PM SUPERVISORY INVESTIGATIVE SPECIALIST Brenna Craig APRN, C.N.P., D.N.P. LAB HISTORICAL ORDERS Performing Organization Address City/State/ZIP Code Phon e Number POWERCHART HX-C trach Amp Src (09/18/2012 2:33 PM SUPERVISORY INVESTIGATIVE SPECIALIST) athologist Signature HXC trach Amp urine POWERCHART [facility] Specimen (Source) Anatomical Collection Method Collection Time Re ceived Time Location / / Volume Laterality 09/18/2012 2:33 PM SUPERVISORY INVESTIGATIVE SPECIALIST Brenna Craig APRN, C.N.P., D.N.P. LAB HISTORICAL ORDERS Performing Organization Address City/State/ZIP Code Phon e Number POWERCHART documented in this encounter Visit Diagnoses Not on filedocumented in this encounter
--- OUTSIDE RECORDS SUMMARY | 2022-05-27 10:57 | XMS_ITS | Encounter Summary ---
:1990 Author Organization [facility] Address [address] [place] [address] Care Team Providers Name Role Phone Judi Strickland APRN, C.N.P., D.N.P. Primary Care Provider Encounter Details Date Type Department Care Team Description 11/10/2021 Hospital Encounter Department of Laboratory [place] [place] [phone] (Wo rk) Social History Tobacco Use Types [...] COVID19 Pending 11/09/2021 11/10/2021 11/11/2021 7:23 AM FLIGHT FOLLOWER documented as of this encounter Care Teams Heater Helper Relationship Specialty Start Date End Date Judi Strickland APRN, C.N.P., D.N.P. PCP - General 07/25/[address] [place] [address] EMILIANO Madrigal [phone] documented as of this encounter
--- OUTSIDE RECORDS SUMMARY | 2022-05-27 10:57 | XMS_ITS | Encounter Summary ---
:1990 Author Organization [facility] Address [address] [place] [address] Care Team Providers Name Role Phone Unavailable Primary Care Provider Unavailable Encounter Details Date Type Department Care Team Description 04/01/2015 Hospital Encounter HX [facility] ME Anne-Marie Ricardo APRN, C.N.P., D. N.P. [address] [place] [phone] (Wo rk) Social History Tobacco Use [...] APRN, C.N.P. - 04/01/2015 12:25 PM CDT [id number] CHIEF COMPLAINT/REASON FOR VISIT Cough. HISTORY OF [...] GarciaNAniaPAnia/radha Electronically Signed By: ANNE-MARIE RICARDO RN, CANDLE MOLDER HAND On: 04/08/2015 08:24 AM Source: [facility] MHSDOLBEYNED Document Id: [id number] documented in this encounter Miscellaneous Notes Miscellaneous - Anne-Marie Ricardo APRN, C.N.P. - 04/01/2015 12:56 PM CDT Ambulatory Patient Summary [address] [facility] [place] [phone] Visit Information Name: ARIS LEOS [facility] Number: [id number] Current Date: 04/01/2015 12:56:08 Physicians Attending Provider: ANNE-MARIE RICARDO RN, THERESA Primary Care Provider: ANNE-MARIE RICARDO RN, CANDLE MOLDER HAND ARIS LEOS has been given the following [...] day x 14 day(s) New Routed to [address] [place] [address] fexofenadine-pseudoephedrine (Keyla-D 12 Hour 60 mg-120 mg [...] if you dont have one. Go to [email or web address] and click on Create Your Account. Then, follow the directions to complete the online form. Youll be asked for your [facility] number which you can find at the top of this document. Your Goals/Additional instructions: Source: [facility] POWERCHART Document Id: [id number] Miscellaneous - Anne-Marie Ricardo APRN, C.N.P. - 04/01/2015 12:56 PM CDT Ambulatory Discharge Medication List [address] [phone] Visit Information Name: SANDRA LEOSLEY LELIA [facility] Number: [id number] Visit Date: 04/01/2015 12:56:07 Attending Provider: ANNE-MARIE RICARDO RN, CANDLE MOLDER HAND Primary Care Provider: ANNE-MARIE RICARDO RN, CANDLE MOLDER HAND DAFNEARIS has been given the following list [...] day x 14 day(s) [facility] [address] [address] fexofenadine-pseudoephedrine (Keyla-D 12 Hour 60 mg-120 mg [...] emergency. Electronically Signed By: ANNE-MARIE RICARDO RN, CANDLE MOLDER HAND Signed On:01-APR-2015 12:56:03 Additional Information: Source: [facility] POWERCHART Document Id: [id number] Miscellaneous - Dewey Duong LAniaPAniaNAnia - 04/01/2015 12:31 PM CDT Adult Soil Engineer Intake/History Adult Soil Engineer Intake/History Entered On: 04/01/2015 12:33 CDT Performed [...] 04/01/2015 12:31 CDT General Info Languages : Malian Is Patient Female and 13-50 no hysterectomy [...] 12:31 CDT Alcohol Use : No DEWEY UDONG LPN - 04/01/2015 12:31 CDT Caffeine Use Grid Caffeine Use : None Last Use : 09-20-13 DEWEY DUONG LPN - 04/01/2015 12:31 CDT Recreational Drug Use Grid Drug Use : None DEWEY DUONG LPN - 04/01/2015 12:31 CDT [facility] Document Id: [id number] documented in this encounter Plan of Treatment Not on filedocumented as of this encounter Visit Diagnoses Not on filedocumented in this encounter
--- OUTSIDE RECORDS SUMMARY | 2022-05-27 10:57 | XMS_ITS | Encounter Summary ---
:1990 Author Organization [facility] Address [address] [place] [address] Care Team Providers Name Role Phone Unavailable Primary Care Provider Unavailable Encounter Details Date Type Department Care Team Description 12/30/2011 Hospital Encounter HX [facility] [place] Carol Mendes M.D. Social History Tobacco Use Types Packs/Day Years Used Date Smoking Tobacco: Never Assessed Sex Assigned at Date Recorded Not on file documented as of this encounter Plan of Treatment Not on filedocumented as of this encounter Visit Diagnoses Not on filedocumented in this encounter
--- OUTSIDE RECORDS SUMMARY | 2022-05-27 10:57 | XMS_ITS | Encounter Summary ---
:1990 Author Organization [facility] Address [address] [place] [address] Care Team Providers Name Role Phone Unavailable Primary Care Provider Unavailable Encounter Details Date Type Department Care Team Description 05/09/[address] [facility] ED Christiano José M.D. [address] [place] [address] [place] [phone] (Wo rk) Social History Tobacco Use Types [...] 05/09/2012 3:38 PM CDT ED Discharge Instructions [facility] [address] [place] [address] Name: ARIS LEOS Date of : 1990 12:00 AM Visit Date: 05/09/2012 12:29 PM Address: [address] [place] [address] [facility] [phone] Primary Care Provider: OFELIA RICARDO RN, NUCLEAR TECHNICIAN IMPORTANT: [facility] in [place] would like to thank you for allowing [...] Comments: With: Address: When: OFELIA RICARDO [address] [place] [address] [facility] ([employer] Within As Needed Comments: With: Address: When: [...] arrange a ride home with a responsible republican. IDAFNE HAYLEY ANNE , or responsible republican have received this information and my questions have been answered. I have discussed any challenges I see with this plan with the nurse or physician. Patient Signature or Responsible Green Party/Relationship Date/Time Provider Signature Date/Time Medication Reconciliation: [...] arrange a ride home with a responsible republican. DAFNE Barroso HAYLEY ANNE , or responsible republican have received this information and my questions have been answered. I have discussed any challenges I see with this plan with the nurse or physician. Patient Signature or Responsible Green Party/Relationship Date/Time Provider Signature Date/Time Source: [facility] POWERCHART Document Id: [id number] Juliette Gerardo R.N. - 05/09/2012 3:38 PM CDT ED Depart Summary [facility] Emergency Department Clinical Discharge Summary PERSON INFORMATION Name ARIS LEOS Age 21 Years 1990 12:00 AM Sex Female Language Rwandan PCP OFELIA RICARDO RN, NUCLEAR TECHNICIAN Marital Status Single N [id number] Visit Id Visit Reason throat burn, sob Specialty Enc Type Emergency Med Service Emergency Medicine Referred by Track Group [facility] ED Discharge 05/09/2012 1:00 PM Tracking Id [id number] Checkout 05/09/2012 1:00 PM Checkin 05/09/2012 12:29 PM Acuity Dispo Type * Discharged to Home or Self Care Arrival 05/09/2012 12:29 PM Reg Status LOS 000 00:31 Address: [address] [place] [phone] Comment: PROVIDER INFORMATION Provider Role Provider Contact Time IZABELLA BARRON MD ED Provider 05/09/12 12:54 JULIETTE GERARDO METAL CUTTER Nurse 05/09/12 14:02 DIAGNOSIS Respiratory problem; Dyspnea [...] Comments: With: Address: When: OFELIA RICARDO [address] [place], [place] [id number] Business (1) Within As Needed Comments: With: Address: When: No work for rest of the day today Within As Needed Comments: Source: [facility] [employer] Document Id: [id number] documented in this encounter Nursing Notes Juliette Gerardo R.N. - 05/09/2012 3:37 PM CDT ED Pain Assessment ED Pain Assessment Entered On: 05/09/2012 15:37 CDT Performed On: 05/09/2012 15:37 CDT by JULEITTE GERARDO RN Pain Assessment Pain Symptoms : No JULIETTE GERARDO RN - 05/09/2012 15:37 CDT Source: [facility] [employer] Document Id: [id number] Juliette Gerardo R.N. - 05/09/2012 12:58 PM CDT Poison control advice Poison control contacted and recommended observe for fever and productive cough and to report back to DRAnia Source: [facility] [employer] Document Id: [id number] Juliette Gerardo R.N. - 05/09/2012 12:55 PM CDT ED Primary Assessment ED Primary Assessment Entered On: 05/09/2012 12:57 CDT Performed On: 05/09/2012 12:55 CDT by JULIETTE GERARDO RN Reason For Visit Problems(Active) Iron deficiency anemia Name of Problem: Iron deficiency anemia ; Onset Date: 06/28/2010 ; Recorder: BRENNA CRAIG DNP, FNP; Confirmation: Confirmed ; Classification: Medical ; Code: 333324 ; Contributor System: [employer] ; Last Updated: 02/15/2011 11:49 CDT ; [...] Code:PNED ; Probability: 0 ; Diagnosis Code: [id number] Triage Chief Complaint Description : see triage note Information Given By : Patient Accompanied By : Mother, Sibling Mode of Arrival ED : Private vehicle Track : Medical Languages : Rwandan JULIETTE GERARDO RN - 05/09/2012 12:55 CDT [...] GERARDO RN - 05/09/2012 12:55 CDT Source: [employer] Document Id: [id number] documented in this encounter ED Notes Juliette Gerardo R.N. - 05/09/2012 3:37 PM CDT ED Disposition Summary ED Disposition Summary Entered On: 05/09/2012 15:37 CDT Performed On: 05/09/2012 15:37 CDT by JULIETTE GERARDO METAL CUTTER Disposition Summary Accompanied By : Mother Mode of Discharge : Ambulatory Transportation : Private vehicle Printed Discharge Instructions Given to Patient : Yes Patient Status at Discharge from ED : Improved JULIETTE GERARDO RN - 05/09/2012 15:37 CDT Source: [employer] Document Id: [id number] Izabella Barron M.D. - 05/09/2012 12:55 PM [...] . All Problems Iron deficiency anemia / [id number] / Confirmed Tinea pedis / 110.4 / [...] BARRON MD On: 05/09/2012 02:26 PM [facility] Document Id: [id number]} Juliette Gerardo R.N. - 05/09/2012 12:45 PM CDT ED Triage Assessment ED Triage Assessment Entered On: 05/09/2012 12:55 CDT Performed On: 05/09/2012 12:45 CDT by JULIETTE GERARDO RN Reason For Visit Problems(Active) Iron deficiency anemia Name of Problem: Iron deficiency anemia ; Onset Date: 06/28/2010 ; Recorder: BRENNA CRAIG DNP, BUSINESS APPLICATIONS SPECIALIST; Confirmation: Confirmed ; Classification: Medical ; Code: 103474 ; Contributor System: Power[employer] ; Last Updated: 02/15/2011 11:49 CDT ; Life Cycle Date: 02/15/2011 ; Life Cycle Status: Active ; Responsible Provider: BRENNA CRAIG DNP, BUSINESS APPLICATIONS SPECIALIST; Vocabulary: SNOMED CT Tinea pedis Name of [...] PNED ; Probability: 0 ; Diagnosis Code: [id number] Triage Chief Complaint Description : States at [...] Private vehicle Track : Medical Languages : Rwandan Vital Signs Assessed : Yes JULIETTE GERARDO [...] Weight Conversion to Pounds : 145.20lb JULIETTE GERAROD RN - 05/09/2012 12:45 CDT Pain Assessment [...] GERARDO RN - 05/09/2012 12:45 CDT Source: [employer] Document Id: [id number] documented in this encounter Miscellaneous Notes Miscellaneous [...] GERARDO RN - 05/09/2012 15:37 CDT Source: [employer] Document Id: [id number] Miscellaneous - Juliette Gerardo R.N. - 05/09/2012 12:29 PM CDT Facility Charge Ticket Facility Charge Ticket Entered On: 05/09/2012 15:38 CDT Performed On: 05/09/2012 12:29 CDT by JULIETTE GERARDO RN Facility Charge TVL Level for Facility Charge Ticket : Level 3 Lynx Total Points with Diagnosis Control : 5 Lynx Visit Level : 85387 Level 3 ANIA LINDER - 05/23/2012 15:05 [...] ANIA LINDER - 05/23/2012 15:05 CDT [facility] POWER[facility] Document Id: [id number] documented in this encounter Plan of Treatment Not on filedocumented as of this encounter Visit Diagnoses Not on filedocumented in this encounter
--- OUTSIDE RECORDS SUMMARY | 2022-05-27 10:57 | XMS_ITS | Encounter Summary ---
:1990 Author Organization [facility] Address [address] [place] [address] Care Team Providers Name Role Phone Seda Solis P.A.-C. Primary Care Provider Encounter Details Date Type Department Care Team Description 09/11/2018 Clinical Communication Department of [facility] Mary Solis [facility], [place] Cris Beard [facility], [id number] [place] [address] [phone] (Work) [phone] Social History Tobacco Use Types Packs/Day Years Used Date Smoking Tobacco: Never Smokeless Tobacco: Never Sex Assigned at Date Recorded Not on file documented as of this encounter Plan of Treatment Not on filedocumented as of this encounter Visit Diagnoses Not on filedocumented in this encounter Care Teams Assistant Restaurant General Manager Relationship Specialty Start Date End Date Seda Solis P.A.-C. PCP - General Family Medicine 06/27/18 07/24/19 documented as of this encounter
--- OUTSIDE RECORDS SUMMARY | 2022-05-27 10:57 | XMS_ITS | Encounter Summary ---
:1990 Author Organization [facility] Address [address] [place] [address] Care Team Providers Name Role Phone Unavailable Primary Care Provider Unavailable Encounter Details Date Type Department Care Team Description 09/23/2013 Hospital Encounter HX [facility] ME Brenna Craig, GRIS, C.N.P., D. N.P. [address] [place] [address] (Wo rk) Social History Tobacco Use Types Packs/Day Years Used Date Smoking Tobacco: Never Assessed Sex Assigned at Date Recorded Not on file documented as of this encounter Last Filed Vital Signs Vital Sign Reading Time Taken Comments Blood Pressure 106/66 09/23/2013 10:38 AM REAL ESTATE AGENCY LICENSEE Pulse 96 09/23/2013 10:38 AM REAL ESTATE AGENCY LICENSEE Temperature - - Respiratory Rate - - Oxygen Saturation - - Inhaled Oxygen Concentration - - Weight 82.6 kg (182 lb 1.6 oz) 09/23/2013 10:38 AM REAL ESTATE AGENCY LICENSEE Height 166 cm (5' 5.35) 09/23/2013 10:38 AM REAL ESTATE AGENCY LICENSEE Body Mass Index 29.98 09/23/2013 10:38 AM REAL ESTATE AGENCY LICENSEE documented in this encounter Progress Notes Brenna Craig, Bonnie.N.P., C.N.P. - 09/23/2013 10:27 AM CST [id number] CHIEF COMPLAINT/REASON FOR VISIT Positive test. HISTORY [...] by mouth daily. She was given the [facility] What to Expect During book as she was deferred to this book for any jasn-mck-cndnikj medication usage. I also advised that she [...] DNP, FNP On: 09/27/2013 04:31 PM Source: [facility] MHSDOLBEYNONRADSYS Document Id: [id number] ESTATE AGENCY LICENSEE documented in this encounter Miscellaneous Notes Miscellaneous - Anastacia, Historical Provider Ser - 10/23/2013 10:39 AM REAL ESTATE AGENCY LICENSEE General Message Document Contains Addenda Addendum by SUSHANT BRASHER V on 24 October 2013 09:10:30 REAL ESTATE AGENCY LICENSEE pt updated Addendum by OFELIA RICARDO RN, ANIME ARTIST on 24 October 2013 07:43:18 REAL ESTATE AGENCY LICENSEE From: OFELIA RICARDO RN, ANIME ARTIST To: SUSHANT BRASHER V; Sent: 10/24/2013 07:43:18 REAL ESTATE AGENCY LICENSEE Subject: RE: General Message she can do that. From: SUSHANT BRASHER V To: OFELIA RICARDO RN, ANIME ARTIST; Sent: 10/23/2013 10:39:00 REAL ESTATE AGENCY LICENSEE Subject: General Message Pt was seen 09/27 by Brenna with positive test. EDC 05/28/14. Declined to share who she willbe seeing for OB. Wants your permission to dye hair using non-ammonia hair dye. Please advise Source: [facility] POWERCHART Document Id: [id number] Miscellaneous - Brenna Craig, D.N.P., C.N.P. - 09/23/2013 11:13 AM REAL ESTATE AGENCY LICENSEE Ambulatory Depart Summary [address] [address] Visit Information Name: ARIS CRAIG LELIA [facility] Number: [id number] Visit Date: 09/23/2013 11:13:26 Attending Provider: BRENNA CRAIG DNP, PLASTICS WORKER Primary Care Provider: OFELIA RICARDO RN, ANIME ARTIST CRAIG, ARIS ROWELL has been given the [...] in case of emergency. Additional Information: Source: [facility] POWERCHART Document Id: [id number] ESTATE AGENCY LICENSEE Miscellaneous - Brenna Craig D.N.P., C.N.P. - 09/23/2013 11:13 AM REAL ESTATE AGENCY LICENSEE Ambulatory Patient Summary [address] [address] Visit Information Name: ARIS CRAIG [facility] Number: [id number] Current Date: 09/23/2013 11:13:26 Physicians Attending Provider: BRENNA CRAIG DNP, PLASTICS WORKER Primary Care Provider: OFELIA RICARDO RN, ANIME ARTIST ARIS CRAIG has been given the following [...] appointment detail needed. Your Goals/Additional instructions: Source: [facility] POWERCHART Document Id: [id number] ESTATE AGENCY LICENSEE Miscellaneous - Lion Massey L.P.N. - 09/23/2013 10:48 AM CST Health Assessment Health Assessment Entered On: 09/23/2013 10:48 REAL ESTATE AGENCY LICENSEE Performed On: 09/23/2013 10:48 REAL ESTATE AGENCY LICENSEE by LION MASSEY LPN Health Assessment Complete Health Assessment Complete or Modified : Annual Health Assessment Annual Health Assessment Completed : Yes LION MASSEY LPN - 09/23/2013 10:48 REAL ESTATE AGENCY LICENSEE Nutrition Nutrition Risk Factors by History Adult : None LION MASSEY LPN - 09/23/2013 10:48 REAL ESTATE AGENCY LICENSEE Functional Current Daily Living Assistance : None LION MASSEY LPN - 09/23/2013 10:48 REAL ESTATE AGENCY LICENSEE Dependent Habits Tobacco Use/Currently Using : No Exposure to Tobacco Smoke : Care provider denies smoking in home Smoking Status : Former smoker LION MASSEY LPN - 09/23/2013 10:48 REAL ESTATE AGENCY LICENSEE Tobacco Use Grid Type : Cigarettes Cigarette Use Packs/Day : 0.5 Last Use : 09-20-13 LION MASSEY LPN - 09/23/2013 10:48 REAL ESTATE AGENCY LICENSEE Caffeine Use Grid Caffeine Use : None Last Use : 09-20-13 LION MASSEY LPN - 09/23/2013 10:48 REAL ESTATE AGENCY LICENSEE Recreational Drug Use Grid Drug Use : None LION MASSEY LPN - 09/23/2013 10:48 REAL ESTATE AGENCY LICENSEE Psychosocial Domestic Abuse Concerns : None LION MASSEY LPN - 09/23/2013 10:48 REAL ESTATE AGENCY LICENSEE Advance Directive Advanced Directives : No Advance Directive Additional Information : No LION MASSEY LPN - 09/23/2013 10:48 REAL ESTATE AGENCY LICENSEE Educ Needs Learning Style Preference Adult Grid Patient : None Family : None LION MASSEY LPN - 09/23/2013 10:48 REAL ESTATE AGENCY LICENSEE Source: [facility] POWERCHART Document Id: [id number] REAL ESTATE AGENCY LICENSEE!33 ESTATE AGENCY LICENSEE Miscellaneous - Lion Massey L.PAniaNAnia - 09/23/2013 10:38 AM CST Adult Mounting Inspector Intake/History Document Has Been Updated Adult Mounting Inspector Intake/History Entered On: 09/23/2013 10:38 REAL ESTATE AGENCY LICENSEE Performed On: 09/23/2013 10:38 REAL ESTATE AGENCY LICENSEE by LION MASSEY LPN Intake Chief Complaint [...] kg/m2 LION MASSEY LPN - 09/23/2013 10:41 REAL ESTATE AGENCY LICENSEE Weight Source : Standing scale LION MASSEY LPN - 09/23/2013 10:38 REAL ESTATE AGENCY LICENSEE General Info Information Given By : Patient Languages : Yoruba LION MASSEY LPN - 09/23/2013 10:38 REAL ESTATE AGENCY LICENSEE Subjective Pain Symptoms : No LION MASSEY LPN - 09/23/2013 10:38 REAL ESTATE AGENCY LICENSEE Dependent Habits Alcohol Use : No LION MASSEY LPN - 09/23/2013 10:41 REAL ESTATE AGENCY LICENSEE Tobacco Use/Currently Using : No Tobacco Use/Last 12 months : No Tobacco Use/Advised to Quit : No Exposure to Tobacco Smoke : Care provider denies smoking in home Smoking Status : Former smoker LION MASSEY LPN - 09/23/2013 10:38 REAL ESTATE AGENCY LICENSEE LION MASSEY LPN - 09/23/2013 10:38 REAL ESTATE AGENCY LICENSEE Tobacco Use Grid Type : Cigarettes Cigarette Use Packs/Day : 0.5 Last Use : 09-20-13 LION MASSEY [facility] - 09/23/2013 10:41 REAL ESTATE AGENCY LICENSEE Caffeine Use Grid Caffeine Use : None Type : Frequency : Amount : Last Use : 09-20-13 LION MASSEY [facility] - 09/23/2013 10:41 REAL ESTATE AGENCY LICENSEE Recreational Drug Use Grid Drug Use : None LION MASSEY [facility] - 09/23/2013 10:38 REAL ESTATE AGENCY LICENSEE Source: [facility] POWERCHART Document Id: [id number] REAL ESTATE AGENCY LICENSEE!45 ESTATE AGENCY LICENSEE documented in this encounter Plan of Treatment Not on filedocumented as of this encounter Procedures Procedure Name Priority Date/Time Associated Diagnosis Comme nts TEST, U Routine 09/23/2013 10:46 AM Res ults for this REAL ESTATE AGENCY LICENSEE procedure are i n the results section. documented in this encounter Results Test, Qualitative, Urine (09/23/2013 10:46 AM REAL ESTATE AGENCY LICENSEE) [facility] gist Method Time Signature HXBeta-hCG Positive POWERCHART Qualitative Urine Specimen (Source) Anatomical Collection Method Collection Time Re ceived Time Location / / Volume Laterality Urine 09/23/2013 10:46 AM REAL ESTATE AGENCY LICENSEE Brenna Craig APRN, C.N.P., D.N.P. LAB URINE EPI VO Performing Organization Address City/State/ZIP Code Phon e Number POWERCHART documented in this encounter Visit Diagnoses Not on filedocumented in this encounter
--- OUTSIDE RECORDS SUMMARY | 2022-05-27 10:57 | XMS_ITS | Encounter Summary ---
:1990 Author Organization [facility] Address [address] [place] [address] Care Team Providers Name Role Phone Judi Strickland APRN, C.N.P., D.N.P. Primary Care Provider Reason for Visit Reason Comments Patient Education Encounter Details Date Type Department Care Team Description 12/21/2021 Clinical Communication Department of [facility] Infusion Therapy in [facility] [place], [address] [place], [place] [address] [facility] [address] [address] [place] [address] Social History Tobacco Use Types Packs/Day Years [...] Education Information Discussed Covid:consent for Bebtelovimab at [place] PLAN Disposition/Recommendation: patient transferred to the appointment desk Information/Education: patient/caller able to teach back Caller agreeable to plan of care: yes The following references were used: nursing clinical judgement and other monoclonal education Hi, my name is Carmen Francisco R.N. from [facility] with a recommendation that you receive a [...] infusions for the treatment of mild COVID-19. [facility] supports this treatment for certain people. I am happy to share with you that since August 2020 [facility] has infused over 23, 000 patients with a monoclonal antibody infusion across our [place] sites. I am sharing this because we [...] illnesses ??? Are taking any medications (prescription, rcft-zjo-qvnjvff, vitamins, and herbal products) How will I [...] to treat people with COVID-19. Go to https://www.abiad20ujfqyqxcepihyiufgum.nih.gov/ for information on the emergency use of [...] than the risk from the treatment. The [facility] Obstetrics and Gynecology teamsupports the use of [...] has been reached. Report side effects to [employer] at www.fda.gov/medSynerchiptch, call 5-214-FNL-3945. How can I learn more? Ask your healthcare provider ??? Visit https://www.exlij96rftsnromnyuiuojuyzk.nih.gov/ ??? Contact your local or state public health department Would you like to learn more about what an Emergency Use Authorization (EUA)?Yes; The [place] FDA has made these monoclonal antibody infusions available under an emergency access mechanism calledan EUA. The EUA is supported by a [place] of Health and Human Service (HHS) declaration that circumstances exist to justify the emergency use of drugs and biological products during the COVID-19 pandemic. What is the cost for this medication? The medication is provided to [facility] at no charge and there is no cost of the medication to youthe patient. Any associated costs with the infusion will be billed to the patient's insurance company. [place] does not want cost to be a [...] will be provided to patient/caregiver at the [facility]. Remote Patient Monitoring: System Calculated MASS [...] the isolation and quarantine requirements outlined by [facility] health department. All isolation periods are [...] Infection Onset Date Last Indicated Resolved Time [id number]: Symptom onset 12/21/2021 12/21/2021 5:38 AM CDT 12/18/21 documented as of this encounter Care Teams Parts Clerk Relationship Specialty Start Date End Date Judi Strickland APRN, C.N.P., D.N.P. PCP - General 07/25/[id number] [place] [phone] documented as of this encounter
--- OUTSIDE RECORDS SUMMARY | 2022-05-27 10:57 | XMS_ITS | Encounter Summary ---
:1990 Author Organization [facility] Address [address] [place] [id number] Care Team Providers Name Role Phone Judi Strickland APRN, C.N.P., D.N.P. Primary Care Provider Reason for Visit Reason Comments COVID Nurse Line Encounter Details Date Type Department Care Team Description 01/16/2020 Clinical Communication Central Appointment Line, Covid COVID Nurse Line Office in [facility] [address] [place] [address] Social History Tobacco Use Types [...] to be swabbed for COVID-19, sent to [place], [place] and Self-isolation, quarantine at home Care Points provided: Standard precautions for all patients: Wash hands often with soap and water for at least 20 seconds, especially after blowing your nose, coughing, sneezing, or having been in a public place. If soap and water aren't available, use a hand medical technologist that contains at least 60% alcohol. Avoid [...] essential items or medical care). Educational Resource: https://www.cdc.gov/coronavirus/2019-ncov/qlpbkrd-cljwndf-rnig/index.html Recommendations as testing criteria is met: Stay [...] if any new orworsening symptoms. Education Resources: https://www.cdc.gov/coronavirus/2019-ncov/zm-crq-swc-sick/st vqf-azti-eruw.html Education: patient/caregiver Patient/caregiver able to teach back Patient agreeable to plan of care: Yes The following references were used: [facility] novel coronavirus (COVID- 19) resources CDC web site https://www.cdc.gov/coronavirus/2019-ncov/summary.html [facility] ([facility]) Guidelines for self-isolation Nursing judgement documented in this encounter Plan of Treatment Not on filedocumented as of this encounter Visit Diagnoses Not on filedocumented in this encounter Care Teams Photographic Editor Relationship Specialty Start Date End Date Judi Strickland APRN, C.N.P., D.N.P. PCP - General 07/25/[address] [place] [phone] documented as of this encounter
--- OUTSIDE RECORDS SUMMARY | 2022-05-27 10:57 | XMS_ITS | Encounter Summary ---
:1990 Author Organization [facility] Address [address] [place] [address] Care Team Providers Name Role Phone Unavailable Primary Care Provider Unavailable Encounter Details Date Type Department Care Team Description 09/20/2015 Hospital Encounter HX NO MAPPING Jovi Alvarado P.A.-C., M.S. [address] [place], [place] [phone] (Wo rk) Social History Tobacco Use Types Packs/Day Years Used Date Smoking Tobacco: Never Assessed Sex Assigned at Date Recorded Not on file documented as of this encounter Last Filed Vital Signs Vital Sign Reading Time Taken Comments Blood Pressure 124/75 09/20/2015 3:00 PM COLLAR STITCHER Pulse 104 09/20/2015 3:00 PM COLLAR STITCHER Temperature - - Respiratory Rate - - Oxygen Saturation - - Inhaled Oxygen Concentration - - Weight - - Height 166 cm (5' 5.35) 09/20/2015 3:00 PM COLLAR STITCHER Body Mass Index - - documented in this encounter Discharge Summaries Suzanne Riley, L.P.N. - 09/20/2015 3:26 PM CST ED Discharge Instructions [facility] [address] [place] [address]. [place] [address] Name: ARIS FELIX Date of : 1990 12:00 AM Visit Date: 09/20/2015 2:21 PM [facility] Number: [id number] Address: [address] [facility] [address] Primary Care Provider: NICOLE SANTANA MD IMPORTANT: [facility] in [place] would like to thank you for allowing us to assist you with your healthcare needs. The following includes patient education materials and information regarding your injury/illness. Diagnosis: Bronchitis Acute; Sinusitis Acute NOS Follow-Up Instructions: With: Address: When: NICOLE MATTHEWPOOJADAVID [address] [place] [address] Business (1) Within As Needed Your Upcoming [...] will help loosen secretions in the lungs. Lrqo-txe-lykjtke cough medicines that contain dextromethorphan (such as [...] ear pain or a stiff neck ?? [phone] [facility], [address] [place] [address]. All rights reserved. This information is not [...] if you dont have one. Go to [email or web address] and click on Create Your Account. Then, follow the directions to complete the online form. Youll be asked for your [facility] number which you can find at [...] physician. Patient Signature or Responsible Constitution Party/Relationship Date Time Provider Signature Date Time IMPORTANT: [...] physician. Patient Signature or Responsible Constitution Party/Relationship Date Time Provider Signature Date Time This document has images extracted. Please consider using [employer] for all your patient education needs. Source: [facility] POWERCHART Document Id: [id number] AR STITCHER Suzanne Riley L.P.N. - 09/20/2015 3:26 PM CST ED Depart Summary [facility] Emergency Department Clinical Discharge Summary PERSON INFORMATION Name ARIS FELIX Age 24 Years 1990 12:00 AM Sex Female Language Danish PCP NICOLE SANTANA MD Marital Status Single N [id number] Visit Id Visit Reason UC - Cough; cough Specialty Enc Type [facility] Outpatient Med Service Urgent Care Referred by Track Group [facility] ED Discharge 09/20/2015 3:25 PM Tracking Id [id number] Checkout 09/20/2015 3:25 PM Checkin 09/20/2015 2:21 PM Acuity 4 -Less Urgent Dispo Type * Discharged to Home or Self Care Arrival 09/20/2015 2:21 PM Reg Status Complete LOS 000 01:04 Address: [address] [facility] [address] Comment: PROVIDER INFORMATION Provider Role Provider Contact Time AGNES GARCIA LPN ED Nurse 09/20/15 14:59 JOVI ALVARADO PA-C ED Provider 09/20/15 15:16 DIAGNOSIS Bronchitis Acute; Sinusitis Acute NOS Comment: PATIENT EDUCATION INFORMATION Instructions: BRONCHITIS, Abx Tx (Adult) Follow up: With: Address: When: NICOLE SANTANA [address] [place] [address] [phone] Business (1) Within As Needed Source: [facility] POWERCHART Document Id: [id number] AR STITCHER documented in this encounter Progress Notes Jovi Alvarado P.A.-C., M.S. - 09/20/2015 2:21 PM CST [id number] CHIEF COMPLAINT/REASON FOR VISIT Cough. HISTORY OF [...] ALVARADO PA-C On: 09/27/2015 04:24 PM Source: [facility] MHSDOLBEYNONRADSYS Document Id: [id number] AR STITCHER documented in this encounter H&P Notes Agnes Garcia R.N. - 09/20/2015 3:00 PM CST Urgent Care Intake Urgent Care Intake Entered On: 09/20/2015 15:02 COLLAR STITCHER Performed On: 09/20/2015 15:00 COLLAR STITCHER by AGNES GARCIA LPN Intake Chief Complaint [...] inch(es)) AGNES GARCIA LPN - 09/20/2015 15:00 COLLAR STITCHER General Info Information Given By : Patient Languages : Danish Is Patient Female and 13-50 no hysterectomy : Yes Status : Patient denies Are you ? : No AGNES GARCIA LPN - 09/20/2015 15:00 COLLAR STITCHER Subjective Pain Symptoms : No AGNES GARCIA LPN - 09/20/2015 15:00 COLLAR STITCHER Dependent Habits Exposure to Tobacco Smoke : Care provider denies smoking in home Smoking Status : Current some day smoker Tobacco 2A : Yes Tobacco Use/Currently Using : Yes Tobacco Use/Last 30 Days : Yes Tobacco Use/Last 12 months : Yes Type : Cigarettes: Less than 20 per day Tobacco Use/Advised to Quit : No AGNES GARCIA LPN - 09/20/2015 15:00 COLLAR STITCHER Caffeine Use Grid Caffeine Use : None Last Use : 09-20-13 AGNSE GARCIA LPN - 09/20/2015 15:00 COLLAR STITCHER Recreational Drug Use Grid Drug Use : None AGNES GARCIA LPN - 09/20/2015 15:00 COLLAR STITCHER Nutrition Nutrition Risk Factors by History Adult : None AGNES GARCIA LPN - 09/20/2015 15:00 COLLAR STITCHER Functional Current Daily Living Assistance : None AGNES GARCIA LPN - 09/20/2015 15:00 COLLAR STITCHER Psychosocial Domestic Abuse Concerns : None Behavioral Health Screen/Safety Assmt : No Taoism Preference : No qualifying data available. AGNES GARCIA INSURANCE CLAIMS PROCESSOR - 09/20/2015 15:00 COLLAR STITCHER Advance Directive Advanced Directives : No Advance Directive Additional Information : No AGNES GARCIA ARPAN - 09/20/2015 15:00 COLLAR STITCHER Educ Needs Learning Style Preference Adult Grid Patient : None Family : None AGNES GARCIA ARPAN - 09/20/2015 15:00 COLLAR STITCHER Source: [facility] InPulse MedicalCHART Document Id: [id number] COLLAR STITCHER!51 AR STITCHER documented in this encounter ED Notes Suzanne Riley L.P.N. - 09/20/2015 3:22 PM CST ED Disposition Summary ED Disposition Summary Entered On: 09/20/2015 15:23 COLLAR STITCHER Performed On: 09/20/2015 15:22 COLLAR STITCHER by SUZANNE RILEY LPN ED Disposition Summary Printed Discharge Instructions Given to Patient : Yes SUZANNE RILEY LPN - 09/20/2015 15:22 COLLAR STITCHER Source: [facility] InPulse MedicalCHART Document Id: [id number] COLLAR STITCHER!3 AR STITCHER Lelia Garcia R.N. - 09/20/2015 2:21 PM CST ED Triage Assessment Document Has Been Updated ED Triage Assessment Entered On: 09/20/2015 14:22 COLLAR STITCHER Performed On: 09/20/2015 14:21 COLLAR STITCHER by LELIA GARCIA RN Reason For Visit (As Of: 09/20/2015 14:22:43 COLLAR STITCHER) Problems(Active) Cough Bronchospastic (ICD-9-CM :519.11 ) Name of Problem: Cough Bronchospastic ; Onset Date: 04/01/2015 ; Recorder: OFELIA RICARDO RN, THERESA; Confirmation: Confirmed ; Classification: Medical ; Code: 519.11 ; Contributor System: PowerChart ; Last Updated: 04/15/2015 7:28 CDT ; Life Cycle Status: Active ; Responsible Provider: OFELIA RICARDO RN, THERESA; Vocabulary: ICD-9-CM Iron deficiency anemia (SNOMED CT :595334325 ) Name of Problem: Iron deficiency anemia ; Onset Date:06/28/2010 ; Recorder: BRENNA CRAIG DNP, FNP; Confirmation: Confirmed ; Classification: Medical ; Code: [id number] ; Contributor System: Tech CocktailChart ; Last Updated: 02/15/2011 11:49 CDT ; [...] PNED ; Probability: 0 ; Diagnosis Code: [id number] Triage Chief Complaint Description : cough, productive, for about 2 weeks. Cough is worse at night. OTC meds not working Information Given By : Patient Accompanied By : Alone Mode of Arrival ED : Private vehicle Track : Medical Languages : Danish Patient Informed of Triage Location : Urgent Care Treatments Prior to Arrival : Home treatments Are you ? : No Is Patient Female and 13-50 no hysterectomy : Yes Status : Patient denies LELIA GARCIA RN - 09/20/2015 14:21 COLLAR STITCHER Pain Assessment Pain Symptoms : No LELIA GARCIA RN - 09/20/2015 14:21 COLLAR STITCHER CHARANJIT DCP GENERIC CODE Tracking Acuity : 4 -Less Urgent Tracking Group : RW ED LELIA GARCIA RN - 09/20/2015 14:21 COLLAR STITCHER Source: [facility] [place] Document Id: [id number] COLLAR STITCHER!19 AR STITCHER documented in this encounter Plan of Treatment Not on filedocumented as of this encounter Visit Diagnoses Not on filedocumented in this encounter
--- OUTSIDE RECORDS SUMMARY | 2022-05-27 10:57 | XMS_ITS | Encounter Summary ---
:1990 Author Organization [facility] Address [address] [place] [address] Care Team Providers Name Role Phone Unavailable Primary Care Provider Unavailable Encounter Details Date Type Department Care Team Description 03/04/2015 Hospital Encounter HX [facility] ME Ofelia Ricardo APRN, C.N.P., D. N.P. [address] [place] [address] (Wo rk) Social History Tobacco [...] APRN, C.N.P. - 03/04/2015 3:14 PM CDT [id number] CHIEF COMPLAINT/REASON FOR VISIT Vaginal symptoms of [...] Matti.N.P./radha Electronically Signed By: OFELIA RICARDO RN, SOFT WORK CIGAR MACHINE OPERATOR On: 03/05/2015 12:46 PM Source: [facility] MHSDOLBEYNONRADSYS Document Id: [id number] documented in this encounter Miscellaneous Notes Miscellaneous - Ofelia Ricardo APRN, C.N.P. - 03/04/2015 4:12 PM CDT Ambulatory Patient Summary [address] [place], [place] [id number] Visit Information Name: ARIS LEOS [facility] Number: [id number] Current Date: 03/04/2015 16:12:12 Physicians Attending Provider: OFELIA RICARDO RN, THERESA Primary Care Provider: OFELIA RICARDO RN, SOFT WORK CIGAR MACHINE OPERATOR ARIS LEOS has been given [...] day x 7 day(s) New Routed to [facility] [address] [address] Stop Taking the Following Medications: Medication list [...] appointment detail needed. Your Goals/Additional instructions: Source: [facility] Local LiftCHART Document Id: [id number] Miscellaneous - Ofelia Ricardo APRN, C.N.P. - 03/04/2015 4:12 PM CDT Ambulatory Discharge Medication List [address] [id number] Visit Information Name: ARIS LEOS [facility] Number: [id number] Visit Date: 03/04/2015 16:12:11 Attending Provider: OFELIA RICARDO RN, THERESA Primary Care Provider: OFELIA RICARDO RN, THERESA AIRS LEOS has been given the following list [...] day x 7 day(s) New Routed to [facility] [address] [address] Stop Taking the Following Medications: Medication list [...] THERESA Signed On:04-MAR-2015 16:12:09 Additional Information: Source: [facility] Local LiftCHART Document Id: [id number] Miscellaneous - Darius Sandoval L.P.N. - 03/04/2015 3:21 PM CDT Adult Steward/Stewardess Dining Room Intake/History Adult Steward/Stewardess Dining Room Intake/History Entered On: 03/04/2015 15:24 CDT Performed On: 03/04/2015 15:21 CDT by DARIUS SANDOVAL RESIDENT PROGRAM SPECIALIST Intake Chief Complaint : Vaginal itching. Temperature [...] Preferred Communication Mode : Verbal Languages : Irish Is Patient Female and 13-50 no hysterectomy [...] SANDOVAL LPN - 03/04/2015 15:21 CDT Source: [facility] POWERCHART Document Id: [id number] CDT!47 documented in this encounter Plan of Treatment Not on filedocumented as of this encounter Procedures Procedure Name Priority Date/Time Associated Comments Diagnosis WET PREP EXAM, Routine 03/04/2015 3:45 PM Results for this UROGENITAL CDT procedure are i n the results section. documented in this encounter Results (ABNORMAL) Wet Prep Exam, Urogenital (03/04/2015 3:45 PM CDT) [facility] Method Time Signature HXWet Prep (POSITIVE) [...]
--- OUTSIDE RECORDS SUMMARY | 2022-05-27 10:57 | XMS_ITS | Encounter Summary ---
:1990 Author Organization [facility] Address [address] [place] [address] Care Team Providers Name Role Phone Elsewhere, Pcp Primary Care Provider Unavailable Reason for Visit Reason Comments Abdominal Pain Started this AM upper abdome n contracts shooting pain. Appointment Request (Routine) - Closed Specialty Diagnoses / Procedures Referred By Contact Refer red To Contact Family Medicine Referral ID Status Reason Start Date Expiration Date Visits Requ ested Visits Authorized [id number] Closed 10/11/2017 04/09/2018 1 1 Encounter Details Date Type Department Care Team Description 10/11/2017 Office Visit Department of Family Suzanne Garcia Pa in Right Upper Medicine, Squires GRIS, C.N.PAnia, Linn enriquezt (Primary Dx) Clinic, in [address] [place] [address] [phone] Social History Tobacco Use Types Packs/Day Years Used Date Smoking Tobacco: Never Smokeless Tobacco: Never Sex Assigned at Date Recorded Not on file documented as of this encounter Last Filed Vital Signs Vital Sign Reading Time Taken Comments Blood Pressure 123/75 10/11/2017 4:29 PM SONG PLUGGER Pulse 100 10/11/2017 4:29 PM SONG PLUGGER Temperature 37.1 ??C (98.8 ??F) 10/11/2017 4:29 PM SONG PLUGGER Respiratory Rate 16 10/11/2017 4:29 PM SONG PLUGGER Oxygen Saturation 100% 10/11/2017 4:29 PM SONG PLUGGER Inhaled Oxygen Concentration - - Weight 78.7 kg (173 lb 8 oz) 10/11/2017 4:29 PM SONG PLUGGER Height - - Body Mass Index 28 09/15/2017 11:20 AM SONG PLUGGER documented in this encounter Patient Instructions Patient InstructionsSuzanne Garcia APRN, D.N.P., C.N.P. - 10/11/2017 4:45 PM CST Please schedule abdominal U/S in [place] at 9am in their urgent spot PLUGGER documented in this encounter Progress Notes Suzanne [...] pericholecystic fluid. Negative sonographic Marshall sign, per conference producer. Intrahepatic ducts: Not dilated. Common duct: Not dilated. NORMAL caliber abdominal aorta. ?? IMPRESSION: Normal gallbladder ultrasound. ASSESSMENT/PLAN: #1 Pain Right Upper Quadrant Given patient's symptoms and clinical exam, I am suspicious for cholelithiasis versus cholecystitis.Blood work done today and equivocal - arranged for a semi- urgent abdominal ultrasound which will be for performed in [place] tomorrow morning (10/12/17). Abdominal U/S is negative for concerns. Suspect possible muscular strain. Recommended conservative management - [id number] analgesics, ice/heat, rest. Patient is asymptomatic otherwise [...] the content. Suzanne Garcia APRN, D.N.P., C.N.P. PLUGGER documented in this encounter Plan of Treatment Not on filedocumented as of this encounter Procedures Procedure Name Priority Date/Time Associated Comments Diagnosis MORPHOLOGY EVALUATION Routine 10/11/2017 5:03 PM Results for this SONG PLUGGER procedure are i n the results section. CBC WITH DIFFERENTIAL, Routine 10/11/2017 5:03 PM Pain Right U pper Results for this B SONG PLUGGER Quadrant procedure are i n the results section. LIPASE, S/P Routine 10/11/2017 5:03 PM Pain Right Upper Resul ts for this SONG PLUGGER Quadrant procedure are i n the results section. AMYLASE, TOT, S Routine 10/11/2017 5:03 PM Pain Right Upper Re sults for this SONG PLUGGER Quadrant procedure are i n the results section. COMPREHENSIVE Routine 10/11/2017 5:03 PM Pain Right Upper Resu lts for this METABOLIC PANEL, S/P SONG PLUGGER Quadrant procedu re are in the results section. documented in this encounter Results Morphology Evaluation (10/11/2017 5:03 PM SONG PLUGGER) Analysis Performed At Patho logist Time Signature RBC Morphology Normal 10/11/2017 [facility] 7:27 PM [facility] PLT Morphology Normal 10/11/2017 [facility] 7:27 PM [facility] PLT Estimate Adequate Adequate 10/11/2017 [facility] 7:27 PM [facility] Specimen Anatomical Collection Method Collection Time Receive d Time (Source) Location / / Volume Laterality Blood 10/11/2017 5:03 PM 8 5:53 [facility] PM S[facility] PLUGGER Suzanne Garcia APRN, Zulema.N.P., D.N.P. LAB BLOOD ADD-ON Performing Organization Address City/State/ZIP Code Phon e Number [facility]- [id number] [place] [id number] [facility] Lipase (10/11/2017 5:03 PM SONG PLUGGER) P athologist Signature Lipase, S 34 13 - 60 U/L 10/11/2017 [facility] 5:53 PM [facility] Specimen Anatomical Collection Method Collection Time Receive d Time (Source) Location / / Volume Laterality Blood (Blood, 10/11/2017 5:03 PM 10/11/19 18 5:30 Venous) [facility] PM [facility] Oswald Campos APRNN.Jie., D.N.P. LAB BLOOD ADD-ON Performing Organization Address [facility] Phon e Number [address] [phone] [facility] Amylase, Total (10/11/2017 5:03 PM SONG PLUGGER) P athologist Signature Amylase, Total, 44 26 - 102 10/11/2017 [facility] S U/L 5:53 PM [facility] Specimen Anatomical Collection Method Collection Time Receive d Time (Source) Location / / Volume Laterality Blood (Blood, 10/11/2017 5:03 PM 10/11/19 18 5:30 Venous) S[facility]UGG[facility] PM [facility] Oswald Campos APRNN.P., D.N.P. LAB BLOOD ADD-ON Performing Organization Address [facility] Phon e Number [address] [address] [facility] (ABNORMAL) CBC with Differential (10/11/2017 5:03 PM SONG PLUGGER) [facility] Method Time Signature Hemoglobin 11.2 (L) 11.6 - 10/11/2017 [facility] 15.0 g/dL 7:02 PM [facility] Hematocrit 34.4 (L) 35.5 - 10/11/2017 [facility] 44.9 % 7:02 PM [facility] Erythrocytes 5.63 (H) 3.92 - 10/11/2017 [facility] 5.13 7:02 PM [facility] x10(12)/L [facility] MCV 61.1 (L) 78.2 - 10/11/2017 [facility] 97.9 fL 7:02 PM [facility] RBC Distrib Width 14.7 12.2 - 10/11/2017 [facility] 16.1 % 7:02 PM [facility] Platelet Count 292 157 - 371 10/11/2017 [facility] x10(9)/L 7:02 PM [facility] Leukocytes 11.3 (H) 3.4 - 9.6 10/11/2017 [facility] x10(9)/L 7:02 PM [facility] Neutrophils 7.70 (H) 1.56 - 10/11/2017 [facility] 6.45 7:02 PM [facility] x10(9)/L [facility] Lymphocytes 2.95 0.95 - 10/11/2017 [facility] 3.07 7:02 PM [facility] x10(9)/L [facility] Monocytes 0.52 0.26 - 10/11/2017 [facility] 0.81 7:02 PM [facility] x10(9)/L [facility] Eosinophils 0.13 0.03 - 10/11/2017 [facility] 0.48 7:02 PM [facility] x10(9)/L [facility] Basophils 0.02 0.01 - 10/11/2017 [facility] 0.08 7:02 PM [facility] x10(9)/L [facility] Specimen Anatomical Collection Method Collection Time Receive d Time (Source) Location / / Volume Laterality Blood 10/11/2017 5:03 PM 8 7:02 [facility] PM [facility] Suzanne Garcia APRN C.N.P., D.N.P. LAB BLOOD ADD-ON Performing Organization Address City/State/ZIP Code Phon e Number [facility]- [address] [place] [phone] [place] [address] LAB CMP (Comprehensive Metabolic Panel) (10/11/2017 5:03 PM SONG PLUGGER) P athologist Signature Potassium, S 4.3 3.6 - 5.2 10/11/2017 [facility] mmol/L 5:53 PM [facility] Sodium, S 140 135 - 145 10/11/2017 [facility] mmol/L 5:53 PM [facility] Chloride, S 102 98 - 107 10/11/2017 [facility] mmol/L 5:53 PM [facility] Bicarbonate, S 25 22 - 29 10/11/2017 [facility] mmol/L 5:53 PM [facility] Anion Gap 13 7 - 15 10/11/2017 [facility] 5:53 PM [facility] BUN (Blood Urea 13 6 - 21 10/11/2017 [facility] Nitrogen), S mg/dL 5:53 PM [facility] Creatinine 0.94 0.59 - 10/11/2017 [facility] 1.04 mg/dL 5:53 PM [facility] eGFR 85 >=60 10/11/2017 [facility] Non-Black/Afric mL/min/BSA 5:53 PM [facility] Comment: ----ADDITIONAL INFORMATION---- Estimated GFR calculated using the 2009 CKD_EPI creatinine equation. eGFR Black/ >90 >=60 mL/min/BSA 10/11/2017 5:[address] [facility] Comment: ----ADDITIONAL INFORMATION---- Estimated GFR calculated using the 2009 CKD_EPI creatinine equation. Calcium, Total, S 9.6 8.9 - 10.1 10/11/2017 5:53 PM [facility] mg/dL [facility] Glucose, S 93 70 - 140 mg/dL 10/11/2017 5:53 PM [facility] Protein, Total, S 7.2 6.3 - 7.9 g/dL 10/11/2017 5:53 P M [facility] Albumin, S 4.5 3.5 - 5.0 g/dL 10/11/2017 5:53 PM [facility] Aspartate Aminotransferase 22 8 - 43 U/L 10/11/2017 5 :53 PM [facility] Alkaline Phosphatase, S 61 37 - 98 U/L 10/11/2017 5:5 3 PM [facility] Alanine Aminotransferase 25 7 - 45 U/L 10/11/2017 5:5 3 PM [facility] Bilirubin, Total, S 0.5 <=1.2 mg/dL 10/11/2017 5:53 PM [facility] Specimen Anatomical Collection Method Collection Time Receive d Time (Source) Location / / Volume Laterality Blood 10/11/2017 5:03 PM 8 5:31 [facility] PM [facility] Zulema Campos APRN.N.P., D.N.P. LAB BLOOD ADD-ON Performing Organization Address City/State/[facility] Code Phon e Number [facility]- [phone] [address] [facility] documented in this encounter Visit Diagnoses Diagnosis Pain Right Upper Quadrant - Primary documented in this encounter Care Teams Prepress Technician Relationship Specialty Start Date End Date Elsewhere, Pcp PCP - General Family Medicine 09/05/17 06/26/18 documented as of this encounter
--- OUTSIDE RECORDS SUMMARY | 2022-05-27 10:57 | XMS_ITS | Encounter Summary ---
:1990 Author Organization [facility] Address [address] [place] [address] Care Team Providers Name Role Phone Unavailable Primary Care Provider Unavailable Encounter Details Date Type Department Care Team Description 10/21/2014 Hospital Encounter [facility] Dany Avalos M.D. [address] [place] [address] (Wo rk) Social History Tobacco Use Types Packs/Day Years Used Date Smoking Tobacco: Never Assessed Sex Assigned at Date Recorded Not on file documented as of this encounter Last Filed Vital Signs Vital Sign Reading Time Taken Comments Blood Pressure 118/72 10/21/2014 12:58 PM WILDLIFE REFUGE SPECIALIST Pulse 72 10/21/2014 12:58 PM WILDLIFE REFUGE SPECIALIST Temperature - - Respiratory Rate 16 10/21/2014 12:58 PM WILDLIFE REFUGE SPECIALIST Oxygen Saturation - - Inhaled Oxygen Concentration - - Weight - - Height 166 cm (5' 5.35) 10/21/2014 12:58 PM WILDLIFE REFUGE SPECIALIST Body Mass Index - - documented in this encounter Progress Notes Elliott Avalos M.D. - 10/21/2014 12:35 PM CST [id number] CHIEF COMPLAINT/REASON FOR VISIT Left knee pain. [...] AVALOS MD On: 10/21/2014 05:03 PM Source: [facility] MHSDOLBEYNONRADSYS Document Id: [id number] LIFE REFUGE SPECIALIST documented in this encounter Miscellaneous Notes Miscellaneous - Marva Duarte L.P.N. - 10/21/2014 12:58 PM CST Adult Ibm Mainframe Systems Programmer Intake/History Adult Ibm Mainframe Systems Programmer Intake/History Entered On: 10/21/2014 13:01 WILDLIFE REFUGE SPECIALIST Performed On: 10/21/2014 12:58 WILDLIFE REFUGE SPECIALIST by MARVA DUARTE Intake Chief Complaint : [...] inch(es), 65 inch(es)) MARVA DUARTE 10/21/2014 12:58 WILDLIFE REFUGE SPECIALIST General Info Information Given By : Patient Languages : Mohawk Is Patient Female and 13-50 no hysterectomy : Yes Status : Patient denies Are you ? : No MARVA DUARTE 10/21/2014 12:58 WILDLIFE REFUGE SPECIALIST Subjective Pain Symptoms : Yes MARVA DUARTE 10/21/2014 12:58 WILDLIFE REFUGE SPECIALIST Pain Scale Pain Scale Verbal 0-10 : Open MARVA DUARTE 10/21/2014 12:58 WILDLIFE REFUGE SPECIALIST Pain Pain Assessment Grid Pain 1 Location : Knee Intensity : 4 MAVRA DUARTE 10/21/2014 12:58 WILDLIFE REFUGE SPECIALIST Dependent Habits Tobacco Use/Currently Using : No Exposure to Tobacco Smoke : Care provider denies smoking in home Smoking Status : Former smoker MARVA DUARTE 10/21/2014 12:58 WILDLIFE REFUGE SPECIALIST Tobacco Use Grid Type : Cigarettes Cigarette Use Packs/Day : 0.5 Last Use : 09-20-13 MARVA DUARTE 10/21/2014 12:58 WILDLIFE REFUGE SPECIALIST Caffeine Use Grid Caffeine Use : None Last Use : 09-20-13 MARVA DUARTE 10/21/2014 12:58 WILDLIFE REFUGE SPECIALIST Recreational Drug Use Grid Drug Use : None MARVA DUARTE 10/21/2014 12:58 WILDLIFE REFUGE SPECIALIST ID Screen Travel Within Last 21 Days : No MARVA DUARTE 10/21/2014 12:58 WILDLIFE REFUGE SPECIALIST Source: [facility] POWERCHART Document Id: [id number] WILDLIFE REFUGE SPECIALIST!45 LIFE REFUGE SPECIALIST documented in this encounter Plan of Treatment Not on filedocumented as of this encounter Visit Diagnoses Not on filedocumented in this encounter
--- OUTSIDE RECORDS SUMMARY | 2022-05-27 10:57 | XMS_ITS | Encounter Summary ---
:1990 Author Organization [facility] Address [address] [place] [address] Care Team Providers Name Role Phone Unavailable Primary Care Provider Unavailable Encounter Details Date Type Department Care Team Description 02/19/2013 Hospital Encounter [facility] ME Larry Souza, N.P. [address] [place] [phone] (Wo rk) Social History Tobacco Use [...] Souza, N.P. - 02/19/2013 9:26 AM CDT [id number] CHIEF COMPLAINT/REASON FOR VISIT Pain in left [...] 2011 that seemed to improve with healthcare technician and conservative measures. She has been using [...] SOUZA NP On: 02/21/2013 02:07 PM Source: [facility] MHSDOLBEYNONRADSYS Document Id: [id number] documented in this encounter Miscellaneous Notes Miscellaneous - Briseyda Souza NJason - 02/19/2013 10:10 AM CDT Ambulatory Patient Summary [address] [address] Visit Information Name: ARIS LEOS [facility] Number: [id number] Current Date: 02/19/2013 10:10:39 Physicians Attending Provider: BRISEYDA SOUZA NP Primary Care Provider: OFELIA RICARDO RN, CORRECTIONAL SUPERVISOR Your Medications Here is a list [...] No Appointments found Your Goals/Additional instructions: Source: [facility] POWERCHART Document Id: [id number] Miscellaneous - Briseyda Souza NJason - 02/19/2013 10:10 AM CDT Ambulatory Depart Summary [facility] [address] [facility] [place] [address] Visit Information Name: ARIS LEOS [facility] Number: [id number] Visit Date: 02/19/2013 10:10:38 Attending Provider: BRISEYDA SOUZA [facility] ADMINISTRATOR Primary Care Provider: OFELIA RICARDO RN, CORRECTIONAL SUPERVISOR ARIS LEOS has been given the [...] your provider for clarification. Additional Information: Source: [facility] POWERCHART Document Id: [id number] Miscellaneous - Hardik Galvan, L.P.N. - 02/19/2013 9:38 AM CDT Adult Record Label Intern Intake/History Adult Record Label Intern Intake/History Entered On: 02/19/2013 9:43 CDT Performed On: 02/19/2013 9:38 CDT by HARDIK GALVAN BRICK CLEANER, RT Intake Chief Complaint : concerned about [...] Preferred Communication Mode : Verbal Languages : Scottish HARDIK GALVAN LPN, 02/19/2013 9:38 CDT Subjective [...] HARDIK GALVAN LPN, 02/19/2013 9:43 CDT [facility] Document Id: [id number] CDT!3 documented in this encounter Plan of Treatment Not on filedocumented as of this encounter Visit Diagnoses Not on filedocumented in this encounter
--- OUTSIDE RECORDS SUMMARY | 2022-05-27 10:57 | XMS_ITS | Encounter Summary ---
:1990 Author Organization [facility] Address [address] [place] [address] Care Team Providers Name Role Phone Judi Strickland APRN, C.N.P., D.N.P. Primary Care Provider Reason for Visit Reason Comments Outpatient Infusion Episode Based Medications (Routine) - Closed Specialty Diagnoses / Procedures Referred By Contact Refer red To Contact Diagnoses COVID-19 Infection Gustavo Abbott McHs Inf Surge Cacf Procedures DC INJECTION, BEBTELOVIMAB, 175MG Meron Isaac, M.P.H. [address] [place] [address] [address] [place] [phone] Referral ID Status Reason Start Date Expiration Date Visits Requ ested Visits Authorized [id number] Closed 12/21/2021 12/21/2022 1 1 Encounter Details Date Type Department Care Team Description 12/22/2021 Infusion Department of Infusion Scar COVID-19 Infection Therapy in [place] Gustavo Isaac M.D., (Primary Dx) [place], [place] M.P.H. [address] [place] [address] [address] [place] [phone] Social History Tobacco Use [...] at 1200, For 1 dose, Patient/caregiver factsheet: https://www.fda.gov/media/725286/ download Preparation: Remove vial from refrigerated storage [...] Infection Onset Date Last Indicated Resolved Time [id number]: Symptom onset 12/21/2021 12/21/2021 5:38 AM CDT 12/18/21 documented as of this encounter Care Teams Follow Up Clerk Relationship Specialty Start Date End Date Judi Strickland APRN, C.N.P., D.N.P. PCP - General 07/25/[address] [place] [phone] documented as of this encounter
--- OUTSIDE RECORDS SUMMARY | 2022-05-27 10:57 | XMS_ITS | Encounter Summary ---
:1990 Author Organization [facility] Address [address] [place] [address] Care Team Providers Name Role Phone Judi Strickland APRN, C.N.P., D.N.P. Primary Care Provider Reason for Visit Appointment Request (Routine) - Closed Specialty Diagnoses / Procedures Referred By Contact Refer red To Contact Family Medicine Referral ID Status Reason Start Date Expiration Date Visits Requ ested Visits Authorized [id number] Closed 12/21/2021 12/21/2022 1 1 Encounter Details Date Type Department Care Team Description 12/21/2021 Internal E-Consult Department of Family Mehnaz Chong OVID-19 Infection Medicine, Center [address] (Primary Dx) Street Professional [address] [facility] in [facility], [address] [place] [phone] [place], [place] [phone] (Work) Social History Tobacco Use Types Packs/Day Years Used Date Smoking Tobacco: Never Smokeless Tobacco: Never Sex Assigned at Date Recorded Not on file documented as of this encounter Consult Notes Mehnaz Chong, D.OAina - 12/21/2021 11:00 AM CDT E-Consult for Request for Outpatient Treatment for Acute Covid-19 Ms. Felix tested positive for COVID-19. The Covid-19 Infection flag in the [place] Chart has been updated. [facility], in collaboration with the [place] Department of [facility], is currently able to offer Caorl oral treatment to symptomatic patients who have [...] order the appropriate therapy. Mehnaz Chong D.O. [place] COVID Care Team [facility] and [facility] -Eligibility for treatment requires a CAST>=1. Eligibility [...] Primary documented in this encounter Care Teams Supplier Quality Relationship Specialty Start Date End Date Judi Strickland APRN, C.N.P., D.N.P. PCP - General 07/25/[address] [place] [phone] documented as of this encounter
--- OUTSIDE RECORDS SUMMARY | 2022-05-27 10:57 | XMS_ITS | Encounter Summary ---
:1990 Author Organization [facility] Address [address] [place] [address] Care Team Providers Name Role Phone Judi Strickland APRN, C.N.P., D.N.P. Primary Care Provider Encounter Details Date Type Department Care Team Description 11/10/2021 Admin Visit Department of Family Judi Strickland AP RN, Medicine, [facility], C.N.P ., D.N.P. in [address] [phone] (Wo rk) Social History Tobacco Use Types [...] COVID19 Pending 11/09/2021 11/10/2021 11/11/2021 7:23 AM RN DELIVERY documented as of this encounter Care Teams Theoretical Physicist Relationship Specialty Start Date End Date Judi Strickland APRN, C.N.P., D.N.P. PCP - General 07/25/[address] [place] [phone] documented as of this encounter
--- OUTSIDE RECORDS SUMMARY | 2022-05-27 10:57 | XMS_ITS | Encounter Summary ---
:1990 Author Organization [facility] Address [address] [place] [address] Care Team Providers Name Role Phone Unavailable Primary Care Provider Unavailable Encounter Details Date Type Department Care Team Description 12/23/2013 Hospital Encounter [facility] [place] Nayeli Campos M.D. [address] [place] [address] (Wo rk) Social History Tobacco Use [...] Body Mass Index 28.89 09/23/2013 10:38 AM PHARMACEUTICAL COMPOUNDING SUPERVISOR documented in this encounter Progress Notes Nayeli Koenig M.D. - 12/23/2013 6:50 AM CDT [id number] CHIEF COMPLAINT/REASON FOR VISIT Sore throat. HISTORY [...] expressed understanding of the content Nayeli Washington M.D./[facility] Electronically Signed By: NAYELI DICKERSON MD On: 01/04/2014 08:50 PM Modified by and Electronically Signed by: NAYELI DICKERSON MD On: 01/04/2014 08:50 PM Source: [facility] MHSDOLBEYNONRADSYS Document Id: [id number] documented in this encounter Miscellaneous Notes Miscellaneous - Nayeli Koenig M.D. - 12/23/2013 7:30 AM CDT Ambulatory Patient Summary [facility] [address] [facility] [place] [id number] Visit Information Name: ARIS LEOS [facility] Number: [id number] Current Date: 12/23/2013 07:30:58 Physicians Attending Provider: NAYELI DICKERSON MD Primary Care Provider: OFELIA RICARDO RN, ELECTRICIAN AIRCRAFT ARIS LEOS has been given the following [...] appointment detail needed. Your Goals/Additional instructions: Source: [facility] POWERCHART Document Id: [id number] Miscellaneous - Nayeli Koenig M.D. - 12/23/2013 7:30 AM CDT Ambulatory Discharge Medication List [facility] [address] [facility] [place] [id number] Visit Information Name: ARIS LEOS [facility] Number: [id number] Visit Date: 12/23/2013 07:30:57 Attending Provider: NAYELI DICKERSON MD Primary Care Provider: OFELIA RICARDO RN, ELECTRICIAN AIRCRAFT ARIS LEOS has been given the following [...] in case of emergency. Additional Information: Source: [facility] POWERCHART Document Id: [id number] Miscellaneous - Hardik Galvan, L.P.N. - 12/23/2013 7:00 AM CDT Adult Powerhouse Electrician Apprentice Intake/History Adult Powerhouse Electrician Apprentice Intake/History Entered On: 12/23/2013 7:06 CDT Performed On: 12/23/2013 7:00 CDT by HARDIK GALVAN MACHINE CAPTAIN, RT Intake Chief Complaint : Concerned about [...] HARDIK GALVAN LPN, 12/23/2013 7:00 CDT [facility] Document Id: [id number] CDT!43 documented in this encounter Plan of [...] Strep A Screen (12/23/2013 7:13 AM CDT) [facility] [employer] Method Time Signature HXRapid Strep POWERCHART Confirmation HXPre Negative for POWERCHART Group A Strep by culture. HXFinal Negative for POWERCHART Group A Strep by culture. Specimen Anatomical Collection Method Collection Time Receive d Time (Source) Location / / Volume Laterality Throat 12/23/2013 7:13 AM 4 7:13 CDT AM CDT Nayeli Jarrett M.D. LAB MICROBIOLOGY - GENE RAL ORDERABLES Performing Organization Address City/[facility] Code Phon e Number POWERCHART Rapid Strep A Screen (12/23/2013 7:13 AM CDT) [facility] [employer] Method Time Signature HXStrep A POWERCHART [...]
--- OUTSIDE RECORDS SUMMARY | 2022-05-27 10:57 | XMS_ITS | Encounter Summary ---
:1990 Author Organization [facility] Address [address] [place] [address] Care Team Providers Name Role Phone Elsewhere, Pcp Primary Care Provider Unavailable Reason for Visit Appointment Request (Routine) - Closed Specialty Diagnoses / Procedures Referred By Contact Refer red To Contact Family Medicine Referral ID Status Reason Start Date Expiration Date Visits Requ ested Visits Authorized [id number] Closed 05/31/2018 05/31/2019 1 Encounter Details Date Type Department Care Team Description 05/31/2018 Office Visit Department of Family José Scott, In grown Toenail MedicineTosha M.D. (Primary Dx) Clinic, in [address] [place] [phone] Social History Tobacco Use Types Packs/Day Years [...] Primary documented in this encounter Care Teams Former Hand Relationship Specialty Start Date End Date Elsewhere, Pcp PCP - General Family Medicine 09/05/17 06/26/18 documented as of this encounter
--- OUTSIDE RECORDS SUMMARY | 2022-05-27 10:57 | XMS_ITS | Encounter Summary ---
:1990 Author Organization [facility] Address [address] [place] [address] Care Team Providers Name Role Phone Elsewhere, Pcp Primary Care Provider Unavailable Encounter Details Date Type Department Care Team Description 09/12/2017 Abstract Department of Family Medicine, Provider, Historical [facility], in [place], [place] [address] [address] [facility] [phone] Social History Tobacco Use Types Packs/Day Years Used Date Smoking Tobacco: Never Sex Assigned at Date Recorded Not on file documented as of this encounter Plan of Treatment Not on filedocumented as of this encounter Visit Diagnoses Not on filedocumented in this encounter Care Teams Cytometry Technologist Relationship Specialty Start Date End Date Elsewhere, Pcp PCP - General Family Medicine 09/05/17 06/26/18 documented as of this encounter
--- OUTSIDE RECORDS SUMMARY | 2022-05-27 10:58 | XMS_ITS | Encounter Summary ---
:1990 Author Organization [facility] Address [address] [place] [address] Care Team Providers Name Role Phone Unavailable Primary Care Provider Unavailable Encounter Details Date Type Department Care Team Description 06/28/2010 Hospital Encounter [facility] INPT/OBSRV Cecil Tipton M.D. [address] [place], [place] [address] (Wo rk) Social History Tobacco Use Types Packs/Day Years Used Date Smoking Tobacco: Never Assessed Sex Assigned at Date Recorded Not on file documented as of this encounter Plan of Treatment Not on filedocumented as of this encounter Visit Diagnoses Not on filedocumented in this encounter
--- OUTSIDE RECORDS SUMMARY | 2022-05-27 10:58 | XMS_ITS | Encounter Summary ---
:1990 Author Organization [facility] Address [address] [place] [address] Care Team Providers Name Role Phone Unavailable Primary Care Provider Unavailable Encounter Details Date Type Department Care Team Description 07/16/2010 Hospital Encounter [facility] IN[facility]/OBSRV Akhil Sargent Jr., M.D. [address] [place], [place] [address] (Wo rk) Social History Tobacco Use Types Packs/Day Years Used Date Smoking Tobacco: Never Assessed Sex Assigned at Date Recorded Not on file documented as of this encounter Plan of Treatment Not on filedocumented as of this encounter Visit Diagnoses Not on filedocumented in this encounter
--- OUTSIDE RECORDS SUMMARY | 2022-05-27 10:58 | XMS_ITS | Encounter Summary ---
:1990 Author Organization [facility] Address [address] [place] [address] Care Team Providers Name Role Phone Unavailable Primary Care Provider Unavailable Encounter Details Date Type Department Care Team Description 10/27/2011 Hospital Encounter [facility]X [facility] [place] Brenna Craig, GRIS, C.N.P., D. N.P. [address] [place] [address] (Wo rk) Social History Tobacco Use Types Packs/Day Years Used Date Smoking Tobacco: Never Assessed Sex Assigned at Date Recorded Not on file documented as of this encounter Last Filed Vital Signs Vital Sign Reading Time Taken Comments Blood Pressure 100/70 10/27/2011 1:55 PM CERTIFIED ORTHOTIC FITTER Pulse 120 10/27/2011 1:55 PM CERTIFIED ORTHOTIC FITTER Temperature - - Respiratory Rate 20 10/27/2011 1:40 PM CERTIFIED ORTHOTIC FITTER Oxygen Saturation - - Inhaled Oxygen Concentration - - Weight 74.8 kg (164 lb 14.5 oz) 10/27/2011 1:40 PM CERTIFIED ORTHOTIC FITTER Height - - Body Mass Index - - documented in this encounter Progress Notes Brenna Craig, D.N.P., C.N.P. - 10/27/2011 12:00 AM CST [id number] CHIEF COMPLAINT/REASON FOR VISIT Nasal congestion. HISTORY OF PRESENT ILLNESS The patient is a 21-year-old female who presents to the clinic today with some nasal congestion that has been present now for the past 4-5 days duration. She does report that today she is feeling a little bit better. She reports that she is not currently taking anything nvhm-grc-pbwiyps to help with the symptoms and also [...] and reactive to light and accommodation OROPHARYNX: [place] and moist. TM's: Bilateral tympanic membranes are [...] DNP, FNP On: 10/31/2011 05:13 PM Source: [facility] JEFERSONSDOLBESARAH Document Id: [id number] IFIED ORTHOTIC FITTER documented in this encounter Procedure Notes Jabier Castaneda L.P.NAnia - 10/27/2011 1:55 PM CST Depo-Provera Administration Depo-Provera Administration Entered On: 10/27/2011 13:56 CERTIFIED ORTHOTIC FITTER Performed On: 10/27/2011 13:55 CERTIFIED ORTHOTIC FITTER by JABIER CASTANEDA LPN Depo-Provera Administration Annual Exam in the Past 12 Months : Yes Last Depo-Provera Given : 08/09/2011 CERTIFIED ORTHOTIC FITTER Return appointment : 01/10/2012 CDT Needs test : No JABIER CASTANEDA LPN - 10/27/2011 13:55 CERTIFIED ORTHOTIC FITTER Vitals/Ht/Wt Peripheral Pulse Rate : 120/min (HI) Systolic Blood Pressure : 100mmHg Diastolic Blood Pressure : 70mmHg NIBP Mean : 80mmHg BP Location : Left upper extremity Blood Pressure Cuff Size : Regular JABIER CASTANEDA LPN - 10/27/2011 13:55 CERTIFIED ORTHOTIC FITTER Source: [facility] POWERCHART Document Id: [id number] CERTIFIED ORTHOTIC FITTER!13 IFIED ORTHOTIC FITTER documented in this encounter Miscellaneous Notes Miscellaneous - Brenna Craig, JameN.P., C.N.P. - 10/27/2011 1:57 PM CERTIFIED ORTHOTIC FITTER Ambulatory Patient Summary [id number] [place] [address] Visit Information Name: ARIS LEOS Current Date: 10/27/2011 13:57:44 Primary Care Provider: OFELIA RICARDO RN, FINGERPRINT TECHNICIAN Your Medications Here is a list of [...] No Appointments found Your Goals/Additional instructions: Source: [employer] Document Id: [id number] IFIED ORTHOTIC FITTER Miscellaneous - Brenna Craig, Bonnie.N.P., C.N.P. - 10/27/2011 1:57 PM CERTIFIED ORTHOTIC FITTER Ambulatory Depart Summary [address] [address] Visit Information Name: DAFNEARIS Current Date: 10/27/2011 13:57:43 Attending Provider: BRENNA CRAIG DNP, VEHICLE FARE COLLECTOR Primary Care Provider: OFELIA RICARDO RN, FINGERPRINT TECHNICIAN DAFNE ARIS LELIA has been given the [...] to the patient and/or family, guardian/caregiver. Source: [employer] Document Id: [id number] IFIED ORTHOTIC FITTER Miscellaneous - Jabier Castaneda L.P.N. - 10/27/2011 1:40 PM CST Adult Database Software Technician Intake/History Adult Database Software Technician Intake/History Entered On: 10/27/2011 13:43 CERTIFIED ORTHOTIC FITTER Performed On: 10/27/2011 13:40 CERTIFIED ORTHOTIC FITTER by JABIER CASTANEDA LPN Intake Chief Complaint [...] 74.80kg JABIER CASTANEDA LPN - 10/27/2011 13:40 CERTIFIED ORTHOTIC FITTER Subjective Pain Symptoms : No JABIER CASTANEDA LPN - 10/27/2011 13:40 CERTIFIED ORTHOTIC FITTER Dependent Habits Tobacco Use/Currently Using : Yes Exposure to Tobacco Smoke : Patient smokes Smoking Status : Smoker JABIER CASTANEDA LPN - 10/27/2011 13:40 CERTIFIED ORTHOTIC FITTER Tobacco Use Grid Type : Cigarettes Cigarette Use Packs/Day : 0.5 Last Use : 10 min ago JABIER CASTANEDA LPN - 10/27/2011 13:40 CERTIFIED ORTHOTIC FITTER Caffeine Use Grid Caffeine Use : Current Type : Soft drinks Frequency : Weekly Amount : 2 cans Last Use : 11am JABIER CASTANEDA LPN - 10/27/2011 13:40 CERTIFIED ORTHOTIC FITTER Recreational Drug Use Grid Drug Use : None JABIER CASTANEDA LPN - 10/27/2011 13:40 CERTIFIED ORTHOTIC FITTER Allergy Allergies (Active) NKA Estimated Onset Date: Unspecified ; Created By: CATHLEEN KURTZ LPN; Reaction Status: Active ;Category: Drug ; Substance: NKA ; Type: Allergy ; Updated By: CATHLEEN KURTZ LPN; Reviewed Date: 10/27/2011 13:39 CERTIFIED ORTHOTIC FITTER Source: [facility] POWERCHART Document Id: [id number] CERTIFIED ORTHOTIC FITTER!36 IFIED ORTHOTIC FITTER documented in this encounter Plan of Treatment Not on filedocumented as of this encounter Visit Diagnoses Not on filedocumented in this encounter
--- OUTSIDE RECORDS SUMMARY | 2022-05-27 10:58 | XMS_ITS | Encounter Summary ---
:1990 Author Organization [facility] Address [address] [place] [address] Care Team Providers Name Role Phone Unavailable Primary Care Provider Unavailable Encounter Details Date Type Department Care Team Description 01/27/2011 Hospital Encounter [facility] Deedee Bobby, GRIS, C.N.P., D.N.P. [address] [place], [place] [phone] (Wo rk) Social History Tobacco Use Types Packs/Day Years Used Date Smoking Tobacco: Never Assessed Sex Assigned at Date Recorded Not on file documented as of this encounter Plan of Treatment Not on filedocumented as of this encounter Visit Diagnoses Not on filedocumented in this encounter
--- OUTSIDE RECORDS SUMMARY | 2022-05-27 10:58 | XMS_ITS | Encounter Summary ---
:1990 Author Organization [facility] Address [address] [place] [address] Care Team Providers Name Role Phone Unavailable Primary Care Provider Unavailable Encounter Details Date Type Department Care Team Description 01/27/2011 Hospital Encounter [facility] [place] Anne-Marie Roland, GRIS, C.N.P., D. N.P. [address] [place] [address] (Wo rk) Social History Tobacco [...] Dosing Weight: 68.300kg Last Depo-Provera Given: 11/05/2010 RIPENING ROOM ATTENDANT Needs test: No KEVIN LUGO RN - 01/27/2011 16:20 CDT Source: [facility] POWERCHART Document Id: [id number] CDT!8 documented in this encounter Plan of Treatment Not on filedocumented as of this encounter Visit Diagnoses Not on filedocumented in this encounter
--- OUTSIDE RECORDS SUMMARY | 2022-05-27 10:58 | XMS_ITS | Encounter Summary ---
:1990 Author Organization [facility] Address [address] [place] [address] Care Team Providers Name Role Phone Unavailable Primary Care Provider Unavailable Encounter Details Date Type Department Care Team Description 01/20/2011 Hospital Encounter [facility] Brenna Craig, GRIS, Zulema.N.P., D. N.P. [address] [place] [address] (Wo rk) Social History Tobacco Use Types Packs/Day Years Used Date Smoking Tobacco: Never Assessed Sex Assigned at Date Recorded Not on file documented as of this encounter Progress Notes Brenna Craig, D.N.P., C.N.P. - 01/20/2011 12:00 AM CDT [id number] CHIEF COMPLAINT/REASON FOR VISIT Headache. HISTORY OF [...] reports that she has not used anything gorg-sqb-ubtbzmu to help with her symptoms of discomfort [...] equal, round and reactive to light.. OROPHARYNX: [place] and moist. TMs: Bilateral tympanic membranes are [...] fluid intake and take ibuprofen over the krmu-mox-pmntjnh as directed on package to help with [...] CRAIG DNP, FNP On: 01/20/2011 08:07 Source: [facility] Document Id: [id number] documented in this encounter Miscellaneous Notes Miscellaneous - Brenna Craig D.N.P., C.N.P. - 01/20/2011 5:45 PM CDT Ambulatory Patient Summary [address] [address] Visit Information Name: ARIS LEOS Current Date: 01/20/2011 17:45:32 Primary Care Provider: OFELIA RICARDO RN, PARACHUTE PANEL JOINER Your Medications Here is a list of [...] No Appointments found Your Goals/Additional instructions: Source: [facility] POWERCHART Document Id: [id number] Electronically signed by Anastacia [facility] Steel Post Installer [id number] at 03/05/2017 10:49 AM CDT Miscellaneous - Brenna Craig, Bonnie.N.P., C.N.P. - 01/20/2011 5:45 PM CDT Ambulatory Depart Summary [facility] - [address] [address] Visit Information Name: ARIS LEOS Current Date: 01/20/2011 17:45:32 Primary Care Provider: OFELIA RICARDO RN, PARACHUTE PANEL JOINER ARIS LEOS has been given the following [...] to the patient and/or family, guardian/caregiver. Source: [facility] [employer] ItCHART Document Id: [id number] Shashank - Betsy Chong L.P.N. - 01/20/2011 [...] CHONG LPN - 01/20/2011 15:39 CDT Source: [facility] [employer] Document Id: [id number] CDT!31 Miscellphilippe - Betsy Chong L.P.N. - 01/20/2011 3:33 PM CDT Adult Documentation Lead Intake/History Adult Documentation Lead Intake/History Entered On: 01/20/2011 15:39 CDT Performed [...] LPN; Reviewed Date: 01/20/2011 15:33 CDT Source: [facility] [employer] Document Id: [id number] CDT!44 documented in this encounter Plan of Treatment Not on filedocumented as of this encounter Visit Diagnoses Not on filedocumented in this encounter
--- OUTSIDE RECORDS SUMMARY | 2022-05-27 10:58 | XMS_ITS | Encounter Summary ---
:1990 Author Organization [facility] Address [address] [place] [address] Care Team Providers Name Role Phone Unavailable Primary Care Provider Unavailable Encounter Details Date Type Department Care Team Description 12/16/2010 Hospital Encounter HX [facility] Brenna Craig, GRIS, C.N.P., D. N.P. [address] [place] [address] (Wo rk) Social History Tobacco Use Types Packs/Day Years Used Date Smoking Tobacco: Never Assessed Sex Assigned at Date Recorded Not on file documented as of this encounter Progress Notes Brenna Craig, D.N.P., C.N.P. - 12/16/2010 12:00 AM CDT [id number] CHIEF COMPLAINT/REASON FOR VISIT Sore throat. HISTORY [...] CRAIG DNP, FNP On: 12/16/2010 11:54 Source: [facility] MHSDOLBEYNONRADSYS Document Id: [id number] documented in this encounter Miscellaneous Notes Miscellaneous - Brenna Craig D.N.P., C.N.P. - 12/16/2010 10:06 AM CDT Ambulatory Patient Summary [facility] [address] [place] [address] Visit Information Name: ARIS LEOS Current Date: [...] No Appointments found Your Goals/Additional instructions: Source: [facility] POWERCHART Document Id: [id number] Electronically signed by Anastacia, [facility] Customer Service Representative Teacher [id number] at 03/05/2017 5:50 PM CDT Miscellaneous - Brenna Craig D.N.P., C.N.P. - 12/16/2010 10:06 AM CDT Ambulatory Depart Summary [facility] [address] [place] [address] Visit Information Name: ARIS LEOS Current Date: [...] to the patient and/or family, guardian/caregiver. Source: [facility] POWERCHART Document Id: [id number] Electronically signed by Anastacia [facility] Customer Service Representative Teacher [id number] at 03/05/2017 5:50 PM CDT Miscellaneous - Lesley Ledesma, L.P.N. - 12/16/2010 9:26 AM CDT Adult Payroll Coordinator Intake/History Adult Payroll Coordinator Intake/History Entered On: 12/16/2010 9:29 CDT Performed On: 12/16/2010 9:26 CDT by [employer] SECRETARY Intake Chief Complaint: cold since yesterday sore [...] Subjective Pain Symptoms: Yes JOSE LESLEY [employer] SECRETARY - 12/16/2010 9:26 CDT Pain Pain Assessment [...] LPN; Reviewed Date: 12/16/2010 9:25 CDT [facility] Document Id: [id number] CDT!40 documented in this encounter Plan of Treatment Not on filedocumented as of this encounter Visit Diagnoses Not on filedocumented in this encounter
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
--- OUTSIDE RECORDS SUMMARY | 2022-05-27 10:58 | XMS_ITS | Encounter Summary ---
:1990 Author Organization [facility] Address [address] [place] [address] Care Team Providers Name Role Phone Unavailable Primary Care Provider Unavailable Encounter Details Date Type Department Care Team Description 12/30/2010 Hospital En[facility] Rowan Gonsales M.D. Social History Tobacco Use Types Packs/Day Years Used Date Smoking Tobacco: Never Assessed Sex Assigned at Date Recorded Not on file documented as of this encounter Progress Notes Rowan Gonsales M.D. - 12/30/2010 12:00 AM CDT [id number] CHIEF COMPLAINT/REASON FOR VISIT Abdominal pain. HISTORY [...] if that helps. She can get that zrju-asb-hrxoldb or alternatively I told her she could try some Prilosec. She is to eat bland foods and maybe smaller amounts. If there is no improvement in a week to 10 days or if it is worse before then she is to return. Rowan Gonsales M.D. / Electronically Signed By: ROWAN GONSALES MD On: 12/30/2010 12:29 Source: [facility] MHSDOLBEYNONRADSYS Document Id: [id number] documented in this encounter Miscellaneous Notes Miscellaneous [...] GONSALES MD - 12/30/2010 11:30 CDT Source: [employer] Document Id: [id number] CDT!5 Shashank - Cathleen Massey L.PAniaNAnia - [...] MASSEY LPN - 12/30/2010 11:07 CDT Source: [employer] Document Id: [id number] CDT!31 Shashank - Cathleen Massey L.P.NAnia - 12/30/2010 11:05 AM CDT Adult Business Proposal Rep Intake/History Adult Business Proposal Rep Intake/History Entered On: 12/30/2010 11:07 CDT Performed [...] Source: Standing scale Dosing Weight Clinic: 66.70kg ACTHLEEN MASSEY LPN - 12/30/2010 11:05 CDT Subjective [...] LPN; Reviewed Date: 12/16/2010 9:25 CDT Source: [facility] POWERCHART Document Id: [id number] CDT!36 documented in this encounter Plan of Treatment Not on filedocumented as of this encounter Visit Diagnoses Not on filedocumented in this encounter
--- OUTSIDE RECORDS SUMMARY | 2022-05-27 10:58 | XMS_ITS | Encounter Summary ---
:1990 Author Organization [facility] Address [address] [place] [address] Care Team Providers Name Role Phone Unavailable Primary Care Provider Unavailable Encounter Details Date Type Department Care Team Description 11/05/2010 Hospital Encounter [facility] INPT/OBSRV Carol Mendes M.D. Social History Tobacco Use Types Packs/Day Years Used Date Smoking Tobacco: Never Assessed Sex Assigned at Date Recorded Not on file documented as of this encounter Plan of Treatment Not on filedocumented as of this encounter Visit Diagnoses Not on filedocumented in this encounter
--- OUTSIDE RECORDS SUMMARY | 2022-05-27 10:58 | XMS_ITS | Encounter Summary ---
:1990 Author Organization [facility] Address [address] [place] [address] Care Team Providers Name Role Phone Unavailable Primary Care Provider Unavailable Encounter Details Date Type Department Care Team Description 05/10/2011 Hospital Encounter [facility] Deedee Bobby, GRIS, C.N.P., D. N.P. [address] [place] [address] (Wo rk) Social History Tobacco [...] MALDONADO LPN - 05/10/2011 10:01 CDT Source: [facility] POWERCHART Document Id: [id number] CDT!5 documented in this encounter Plan of Treatment Not on filedocumented as of this encounter Visit Diagnoses Not on filedocumented in this encounter
--- OUTSIDE RECORDS SUMMARY | 2022-05-27 10:58 | XMS_ITS | Encounter Summary ---
:1990 Author Organization [facility] Address [address] [place] [address] Care Team Providers Name Role Phone Unavailable Primary Care Provider Unavailable Encounter Details Date Type Department Care Team Description 02/15/2011 Hospital Encounter [facility] Brenna Craig, GRIS, Zulema.N.P., D. N.P. [address] [place] [address] (Wo rk) Social History Tobacco Use Types Packs/Day Years Used Date Smoking Tobacco: Never Assessed Sex Assigned at Date Recorded Not on file documented as of this encounter Progress Notes Brenna Criag, D.N.P., C.N.P. - 02/15/2011 12:00 AM CDT [id number] CHIEF COMPLAINT/REASON FOR VISIT Nausea and diarrhea. [...] that she has not been taking any oyhc-sra-zyhwssr medications to help with her symptoms and [...] equal, round and reactive to light.. OROPHARYNX: Artesian and moist. TMs: Bilateral tympanic membranes are [...] DNP, FNP On: 02/15/2011 04:43 PM Source: [facility] Document Id: [id number] documented in this encounter Miscellaneous Notes Miscellaneous - Brenna Craig D.N.P., C.N.P. - 02/15/2011 11:52 AM CDT Ambulatory Patient Summary [facility] - [address] [address] Visit Information Name: ARIS LEOS Current Date: 02/15/2011 11:51:57 Primary Care Provider: OFELIA RICARDO RN, INSERTING MACHINE OPERATOR Your Medications Here is a [...] No Appointments found Your Goals/Additional instructions: Source: [employer] Document Id: [id number] Miscellaneous - Brenna Craig D.N.Jie., C.N.P. - 02/15/2011 11:51 AM CDT Ambulatory Depart Summary [facility] - [address] [address] Visit Information Name: ARIS LEOS Current Date: 02/15/2011 11:51:57 Primary Care Provider: OFELIA RICARDO RN, INSERTING MACHINE OPERATOR ARIS LEOS LELIA has been given the [...] to the patient and/or family, guardian/caregiver. Source: [employer] Document Id: [id number] Miscellaneous - Anastacia, Historical Provider Ser - 02/15/2011 11:05 AM CDT Pediatric Transmission Line Engineer Intake/History Pediatric Transmission Line Engineer Intake/History Entered On: 02/15/2011 11:08 CDT Performed [...] LPN; Reviewed Date: 02/15/2011 11:04 CDT Source: [facility] [employer] Document Id: [id number] CDT!36 documented in this encounter Plan of Treatment Not on filedocumented as of this encounter Visit Diagnoses Not on filedocumented in this encounter
--- OUTSIDE RECORDS SUMMARY | 2022-05-27 10:58 | XMS_ITS | Encounter Summary ---
:1990 Author Organization [facility] Address [address] [place] [address] Care Team Providers Name Role Phone Unavailable Primary Care Provider Unavailable Encounter Details Date Type Department Care Team Description 08/09/2011 Hospital Encounter [facility] Anne-Marie Roland, GRIS, C.N.P., D. N.P. [address] [place] [address] (Wo rk) Social History Tobacco Use Types Packs/Day Years Used Date Smoking Tobacco: Never Assessed Sex Assigned at Date Recorded Not on file documented as of this encounter Procedure Notes Cathleen Massey, L.P.N. - 08/09/2011 3:50 PM CST Depo-Provera Administration Depo-Provera Administration Entered On: 08/09/2011 15:50 GEODUCK DIVER Performed On: 08/09/2011 15:50 GEODUCK DIVER by CATHLEEN MASSEY LPN Depo-Provera Administration Annual Exam in the Past 12 Months : Yes Last Depo-Provera Given : 05/10/2011 CDT Needs test : No CATHLEEN MASSEY LPN - 08/09/2011 15:50 GEODUCK DIVER Source: [facility] POWERCHART Document Id: [id number] GEODUCK DIVER!5 UCK DIVER documented in this encounter Plan of Treatment Not on filedocumented as of this encounter Visit Diagnoses Not on filedocumented in this encounter
--- OUTSIDE RECORDS SUMMARY | 2022-05-27 10:58 | XMS_ITS | Encounter Summary ---
:1990 Author Organization [facility] Address [address] [place] [address] Care Team Providers Name Role Phone Unavailable Primary Care Provider Unavailable Encounter Details Date Type Department Care Team Description 01/05/2011 Hospital Encounter [facility] ME Ofelia Ricardo APRN, C.N.P., D. N.P. [address] [place] [address] (Wo rk) Social History Tobacco Use Types Packs/Day Years Used Date Smoking Tobacco: Never Assessed Sex Assigned at Date Recorded Not on file documented as of this encounter Progress Notes Ofelia Ricardo APRN, C.N.P. - 01/05/2011 12:00 AM CDT [id number] CHIEF COMPLAINT/REASON FOR VISIT: 1. Is vaginal [...] /jak Electronically Signed By: OFELIA RICARDO RN, [facility] On: 01/05/2011 11:52 Source: [facility] MHSDOLBEYNONRADSYS Document Id: [id number] documented in this encounter Miscellaneous Notes Miscellaneous - Lesley Ledesma LAniaPAniaNAnia - 01/05/2011 8:12 AM CDT Adult Tennis Desk Team Member Intake/History Adult Tennis Desk Team Member Intake/History Entered On: 01/05/2011 8:15 CDT Performed [...] Tobacco Smoke: Patient smokes JOSE, LESLEY Nicole TECHNICAL SUPPORT ENGINEER - 01/05/2011 8:12 CDT Tobacco Use Grid Type: Cigarettes Cigarette Use Packs/Day: 0.5 Last Use: 10 min ago LESLEY GARCIA [facility] - 01/05/2011 8:12 CDT Alcohol Use: No LESLEY GARCIA TECHNICAL SUPPORT ENGINEER - 01/05/2011 8:12 CDT Caffeine Use Grid Caffeine Use: Current Type: Soft drinks Frequency: Weekly Amount: 2 cans Last Use: 11am LESLEY GARCIA TECHNICAL SUPPORT ENGINEER - 01/05/2011 8:12 CDT Recreational Drug Use Grid Drug Use: None LESLEY GARCIA TECHNICAL SUPPORT ENGINEER - 01/05/2011 8:12 CDT Allergies Allergies (Active) NKA Estimated Onset Date: Unspecified ; Created By: CATHLEEN KURTZ LPN; Reaction Status: Active ;Category: Drug ; Substance: NKA ; Type: Allergy ; Updated By: CATHLEEN KURTZ LPN; Reviewed Date: 01/05/2011 8:11 CDT Source: [employer] Document Id: [id number] CDT!35 documented in this encounter Plan of Treatment Not on filedocumented as of this encounter Visit Diagnoses Not on filedocumented in this encounter
--- OUTSIDE RECORDS SUMMARY | 2022-05-27 10:59 | XMS_ITS | Encounter Summary ---
:1990 Author Organization [place] Address [facility] [place] [address] Care Team Providers Name Role Phone No Ref-Primary, Physician Primary Care Provider [phone] Reason for Referral Diagnostic Imaging Ultrasound (Routine) - Pending Review Specialty Diagnoses / Procedures Referred By Contact Refer red To Contact Diagnoses Suspected anomaly, antepartum, single or unspecified fetus Afsaneh Enciso, Procedures [facility] US Comprehensive Single F/U DO [address] [place], [place] [address] Referral ID Status Reason Start Date Expiration Date Visits V isits Requested Authorized [id number] Pending 01/28/2022 01/28/2023 1 1 Review Reason for Visit Reason Comments Ultrasound L2-EIF, bilateral enlarged a drenals Encounter Details Date Type Department Care Team Description 01/28/2022 Office Visit [facility] Romana Metzger MD [facility] [address] [place] [address] Suspected anomaly, antepartum, sin gle or unspecified fetus (Primary Dx); Maternal Afsaneh Enciso, [address] [place] [address] Echogenic focus of bowel of fetus affect ing antepartum care of mother, single or unspecified fetus [facility] [address] [facility] [address] [place] [address] Social History Tobacco Use Types [...] on filedocumented as of this encounter Results [facility] US Comprehensive Single F/U (02/25/2022 8:31 [...] AM CDT Comp Follow Up Pat. Name: AIRS LEOS Study Date: 02/25/2022 7:44am Pat. NO: [id number] Referring ??: ZACH METZGER Site: [facility] Jewel Sawyer: Juliette Ocasio RD MS : 1990 Age: [...] lb 11 ? oz EFW by ?Hadlock (CVH-YD-RO-FL) Head / Face / Neck Biometry: Truck Driver Heavy ? 5.6 ? mm CM ?6.1 ? mm ANATOMY Abdomen ? Right adrenal gland: prominent ? Left adrenal gland: prominent The following structures appear normal: Head / Neck ? Cranium. Head size. Head shape. Lateral ventricles. Midline falx. Cavum septi pellucidi. Cerebellum. Cisterna magna. Thalami. Face ? Lips. Profile. Nose. Heart / Thorax ?4-chamber view. RVOT view. LVOT view. 0-mfqnlh-wsywoco view. ? Diaphragm. Abdomen ? Stomach. Kidneys. [...] Pat. Name:Alejandro LEOS Date: 7:44am Pat. NO: [id number] MD:ROMANA METZGER [facility]Juliette cOasio RD :1990Age:31 INDICATION Prominent adrenal glands METHOD [...] 1 lb 11 oz EFW by Hadlock (LBA-TR-LC-FL) Head / Face / Neck Biometry: Truck Driver Heavy 5.6 mm CM 6.1 mm ANATOMY Abdomen Right adrenal gland: prominent Left adrenal gland: prominent The following structures appear normal: Head / Neck Cranium. Head size. Head sha pe. Lateral ventricles. Midline falx. Cavum septi pellucidi. Cerebellum. Cisterna magna. Thalami. Face Lips. Profile. Nose. Heart / Thorax 4-chamber view. RVOT view . LVOT view. 8-eyigzi-pjcapld view. Diaphragm. Abdomen Stomach. Kidneys. Bladder. Spine [...] fetus documented in this encounter Care Teams Horse Race Timer Relationship Specialty Start Date End Date No Ref-Primary, Physician PCP - General 01/27/22 documented as of this encounter
--- OUTSIDE RECORDS SUMMARY | 2022-05-27 10:59 | XMS_ITS | Encounter Summary ---
:1990 Author Organization [facility] Address [address] [place] [address]. [place] [address] Care Team Providers Name Role Phone Unavailable Primary Care Provider Unavailable Reason for Referral Diagnostic Imaging Ultrasound (Routine) - Pending Review Specialty Diagnoses / Procedures Referred By Contact Refer red To Contact Diagnoses related condition, antepartum Romana Metzger MD Procedures [facility] [address] [place] [address] Fax: Referral ID Status Reason Start Date Expiration Date Visits V isits Requested Authorized [id number] Pending 01/26/2022 01/26/2023 1 1 Review Encounter Details Date Type Department Care Team Description 01/26/2022 Transcribe Orders [facility], Pr egnancy related Maternal MD condition, [facility] antepartum ([facility] Dx[facility] [address] [address] [phone] Social History Tobacco Use Types Packs/Day Years Used Date Never Assessed Sex Assigned at Date Recorded Not on file documented as of this encounter Plan of Treatment Not on filedocumented as of this encounter Results [facility] (01/28/2022 2:16 PM CDT) Anatomical Region Laterality [...] LEOS Study Date: 01/28/2022 1:24pm Pat. NO: [id number] Referring ??: ZACH METZGER Site: [facility] Hearing Instrument Specialist: Tania Reid RD AR : 1990 Age: 31 INDICATION Left, Echogenic [...] lb 13 ? oz EFW by ?Hadlock (PGD-US-ON-DE) Head / Face / Neck Biometry: Sugar Reprocess Operator Head ? 4.6 ? mm CM ?5.7 ? [...] cava. Inferior vena cava. 3-vessel view. ? 8-njlzjz-vcrsdaq view. Cardiac position. Cardiac size. Cardiac rhythm. [...] RECOMMENDATION We [facility]. Referred due to prominent [...] Please see note for details. Procedure Note Afsanhe Enciso, - 01/31/2022 Comprehensive Pat. Name:ARIS LEOSDavid Date: 1:24pm Pat. NO: [id number] MD:ROMANA METZGER [facility]Tania Reid RDMS :1990Age:31 INDICATION Left, Echogenic [...] 0 lb 13 oz EFW by Hadlock (UJF-HZ-DD-FL) Head / Face / Neck Biometry: Sugar Reprocess Operator Head 4.6 mm CM 5.7 mm Nasal bone [...] vena cava. Inferior vena cava. 3-vessel view. 3-errxvv-dqizjod view. Cardiac position . Cardiac size. Cardiac [...] RECOMMENDATION We discussed the findings on today's [facility] with the patient. Referred due to prominent [...] appeared no rmal. Romana Metzger MD [facility] US ORDERABLES documented in this encounter Visit Diagnoses Diagnosis related condition, antepartum - Primary related condition, antepartum documented in this encounter
--- OUTSIDE RECORDS SUMMARY | 2022-05-27 10:59 | XMS_ITS | Encounter Summary ---
:1990 Author Organization [facility] Address [address] [place] [address] Care Team Providers Name Role Phone Unavailable Primary Care Provider Unavailable Reason for Visit Reason Comments Ultrasound L2-L Ventricular EIF, bilate ral adrenal gland enlargement Encounter Details Date Type Department Care Team Description 01/26/2022 PRE VISIT [facility] Carlos, Ultrasound (L2-L Maternal Medicine ABIEL Gardiner Vent ricular EIF, [facility] bilateral adrenal [address] gland en largement) [address] [place] [address] Social History Tobacco Use Types [...]
--- OUTSIDE RECORDS SUMMARY | 2022-05-27 10:59 | XMS_ITS | Encounter Summary ---
:1990 Author Organization [place] Address [address] [facility] [place] [address] Care Team Providers Name Role Phone No Ref-Primary, Physician Primary Care Provider [phone] Encounter Details Date Type Department Care Team Description 01/28/2022 Orders Only [facility] Vilma Garcia, Warren rmal Maternal GC ultrasound (Primary Medicine Center [address] Dx) [place] [address] [place], [place] [address] [phone] (Wo rk) Social History Tobacco Use Types [...] screening documented in this encounter Care Teams Coil Winder Hand Relationship Specialty Start Date End Date No Ref-Primary, Physician PCP - General 01/27/22 documented as of this encounter
--- OUTSIDE RECORDS SUMMARY | 2022-05-27 10:59 | XMS_ITS | Encounter Summary ---
:1990 Author Organization [facility] Address [address] [place] [address] Care Team Providers Name Role Phone Unavailable Primary Care Provider Unavailable Encounter Details Date Type Department Care Team Description 03/31/2010 Hospital Encounter [facility] INPT/OBSRV Nathalie Gerardo, P.A.-Zulema. [address] [place] [address] (Wo rk) Social History Tobacco Use Types Packs/Day Years Used Date Smoking Tobacco: Never Assessed Sex Assigned at Date Recorded Not on file documented as of this encounter Plan of Treatment Not on filedocumented as of this encounter Visit Diagnoses Not on filedocumented in this encounter
--- OUTSIDE RECORDS SUMMARY | 2022-05-27 10:59 | XMS_ITS | Encounter Summary ---
:1990 Author Organization [facility] Address [address] [facility] [place] [address] Care Team Providers Name Role Phone No Ref-Primary, Physician Primary Care Provider [phone] Afsaneh Enciso DO Unavailable [phone] Reason for Visit Reason Comments Ultrasound AJ3-Oq-iwyagyul adrenal glan ds bilaterally Encounter Details Date Type Department Care Team Description 02/25/2022 Office Visit [facility] Jazmine Sanderson DO [address] [address] Suspected Maternal Pinky Cottrell MD [address] [place] [address] anomaly, antepartum, Medicine Center single or un specified [place] fetus (Primary Dx) [address] [facility] [address] [place] [address] Social History Tobacco Use Types [...] Primary documented in this encounter Care Teams Host/Hostess Restaurant Relationship Specialty Start Date End Date No Ref-Primary, Physician PCP - General 01/27/22 Afsaneh Enciso DO Assigned OBGYN Provider 02/06/22 04/29/[address] [place] [address] documented as of this encounter
--- OUTSIDE RECORDS SUMMARY | 2022-05-27 10:59 | XMS_ITS | Encounter Summary ---
:1990 Author Organization [facility] Address [address] [place] [address] Care Team Providers Name Role Phone Unavailable Primary Care Provider Unavailable Encounter Details Date Type Department Care Team Description 04/26/2010 Hospital Encounter [facility] INPT/OBSRV Cecil Tipton M.D. [address] [place], [place] [address] (Wo rk) Social History Tobacco Use Types Packs/Day Years Used Date Smoking Tobacco: Never Assessed Sex Assigned at Date Recorded Not on file documented as of this encounter Plan of Treatment Not on filedocumented as of this encounter Visit Diagnoses Not on filedocumented in this encounter
--- OUTSIDE RECORDS SUMMARY | 2022-05-27 10:59 | XMS_ITS | Encounter Summary ---
:1990 Author Organization [place] Address [address] [place] [address]. [place] [address] Care Team Providers Name Role Phone Unavailable Primary Care Provider Unavailable Encounter Details Date Type Department Care Team Description 01/25/2022 Medical Correspondence [facility] Scan, MATERNAL Health Info Mgmt Non-Provider MEDICINE [facility] PROVIDER SERVICE [address] [place] [address] [place] [address] [facility] [phone] Social History Tobacco Use Types Packs/Day Years Used Date Never Assessed Sex Assigned at Date Recorded Not on file documented as of this encounter Plan of Treatment Not on filedocumented as of this encounter Visit Diagnoses Not on filedocumented in this encounter
--- OUTSIDE RECORDS SUMMARY | 2022-05-27 10:59 | XMS_ITS | Encounter Summary ---
:1990 Author Organization [facility] Address [address] [place] [address]. [place] [address] Care Team Providers Name Role Phone Unavailable Primary Care Provider Unavailable Reason for Referral Consultation (Routine: Next available opening) - Pending Review Specialty Diagnoses / Procedures Referred By Contact Refer red To Contact Diagnoses related condition, antepartum Romana Mar MD [facility] [address] [place] [address] Fax: Referral ID Status Reason Start Date Expiration Date Visits V isits Requested Authorized [id number] Pending 01/25/2022 01/25/2023 1 1 Review Encounter Details Date Type Department Care Team Description 01/25/2022 Transcribe Orders [facility] Romana Mar, Pr egnancy related Maternal MD condition, [facility] antepartum (Primary [facility] Dx) [address] [facility] [address] [place] [address] [phone] Social History Tobacco Use Types Packs/Day Years [...]
--- OUTSIDE RECORDS SUMMARY | 2022-05-27 10:59 | XMS_ITS | Encounter Summary ---
:1990 Author Organization [facility] Address [address] [place] [address] Care Team Providers Name Role Phone No Ref-Primary, Physician Primary Care Provider [phone] Encounter Details Date Type Department Care [...] on filedocumented in this encounter Care Teams Cable Tower Operator Relationship Specialty Start Date End Date No Ref-Primary, Physician PCP - General 01/27/22 documented as of this encounter
--- OUTSIDE RECORDS SUMMARY | 2022-05-27 10:59 | XMS_ITS | Encounter Summary ---
:1990 Author Organization [place] Address [facility] [place] [address] Care Team Providers Name Role Phone No Ref-Primary, Physician Primary Care Provider [phone] Afsaneh Enciso DO Unavailable [phone] Encounter Details Date Type Department Care [...] on filedocumented in this encounter Care Teams Mill Operator Head Relationship Specialty Start Date End Date No Ref-Primary, Physician PCP - General 01/27/22 Afsaneh Enciso DO Assigned OBGYN Provider 02/06/22 04/29/[address] [place] [address] [address] [place] [address] documented as of this encounter
--- OUTSIDE RECORDS SUMMARY | 2022-05-27 10:59 | XMS_ITS | Encounter Summary ---
:1990 Author Organization [facility] Address [address] [place] [address] Care Team Providers Name Role Phone Unavailable Primary Care Provider Unavailable Encounter Details Date Type Department Care Team Description 02/02/2010 Hospital Encounter [facility] INPT/OBSRV Nathalie Gerardo, P.A.-Zulema. [address] [place] [address] (Wo rk) Social History Tobacco Use Types Packs/Day Years Used Date Smoking Tobacco: Never Assessed Sex Assigned at Date Recorded Not on file documented as of this encounter Plan of Treatment Not on filedocumented as of this encounter Visit Diagnoses Not on filedocumented in this encounter
--- OUTSIDE RECORDS SUMMARY | 2022-05-27 10:59 | XMS_ITS | Clinical Summary ---
:1990 Author Organization [place] Address [address] [place] [address] Care Team Providers Name Role Phone No Ref-Primary, Physician Primary Care Provider [phone] Encounters Date Type Specialty Care Team [...] Procedure Name Priority Date/Time Associated Comments Diagnosis [facility] US COMPREHENSIVE Routine 02/25/2022 8:31 AM Suspected feta l Results for this SINGLE F/U CDT anomaly, procedure are i n antepartum, single the resul ts or unspecified section. fetus from Last 3 Months Results [facility] US Comprehensive Single F/U (02/25/2022 8:31 [...] LEOS Study Date: 02/25/2022 7:44am Pat. NO: [id number] Referring ??MD: ZACH METZGER Site: [facility] Business Continuity Planning Director: Juliette Ocasio RD MS : 1990 Age: [...] lb 11 ? oz EFW by ?Hadlock ([id number]) Head / Face / Neck Biometry: Heel Finisher ? 5.6 ? mm CM ?6.1 ? mm ANATOMY Abdomen ? Right adrenal gland: prominent ? Left adrenal gland: prominent The following structures appear normal: Head / Neck ? Cranium. Head size. Head shape. Lateral ventricles. Midline falx. Cavum septi pellucidi. Cerebellum. Cisterna magna. Thalami. Face ? Lips. Profile. Nose. Heart / Thorax ?4-chamber view. RVOT view. LVOT view. 7-zyodir-hufpytx view. ? Diaphragm. Abdomen ? Stomach. Kidneys. [...] Pat. Name:Alejandro LEOS Date: 7:44am Pat. NO: [id number] MD:MARCO A METZGER [facility]Juliette ZavalaANNETTE calero :1990Age:31 INDICATION Prominent adrenal [...] 1 lb 11 oz EFW by Hadlock ([id number]-FL) Head / Face / Neck Biometry: Heel Finisher 5.6 mm CM 6.1 mm ANATOMY Abdomen Right adrenal gland: prominent Left adrenal gland: prominent The following structures appear normal: Head / Neck Cranium. Head size. Head sha pe. Lateral ventricles. Midline falx. Cavum septi pellucidi. Cerebellum. Cisterna magna. Thalami. Face Lips. Profile. Nose. Heart / Thorax 4-chamber view. RVOT view . LVOT view. 4-wrsqes-bnjttzy view. Diaphragm. Abdomen Stomach. Kidneys. Bladder. Spine [...] Phone Address Typ e / Group Dates [facility] [id number] 2021-Deonte [phone] [address] [facility] [address] [facility] [address] [place] [address] Care Teams Junior Oracle Dba Relationship Specialty Start Date End Date No Ref-Primary, Physician PCP - General 01/27/22
--- OUTSIDE RECORDS SUMMARY | 2022-05-27 10:59 | XMS_ITS | Encounter Summary ---
:1990 Author Organization [place] Address [facility] [place] [address] Care Team Providers Name Role Phone No Ref-Primary, Physician Primary Care Provider [phone] Reason for Referral Diagnostic Imaging Ultrasound (Routine) - Pending Review Specialty Diagnoses / Procedures Referred By Contact Refer red To Contact Diagnoses related condition, antepartum Romana Metzger MD Procedures [facility] [address] [place] [address] Fax: Referral ID Status Reason Start Date Expiration Date Visits V isits Requested Authorized [id number] Pending 01/26/2022 01/26/2023 1 1 Review Reason for Visit Diagnostic Imaging Ultrasound (Routine) - Pending Review Specialty Diagnoses / Procedures Referred By Contact Refer red To Contact Diagnoses related condition, antepartum Romana Metzger MD Procedures [facility] [address] [place] [address] Fax: Referral ID Status Reason Start Date Expiration Date Visits V isits Requested Authorized [id number] Pending 01/26/2022 01/26/2023 1 1 Review Encounter Details Date Type Department Care Team Description 01/28/2022 Hospital Encounter [facility] Eduarda Metzger MD [facility] [address] [place] [address] related Maternal Afsaneh Enciso, DO [address] [facility] [address] [place], [place] [id number] condition, Medicine Center antepartum [place] [address] [facility] [address] [place] [address] Social History Tobacco Use Types [...] results section. documented in this encounter Results [facility] US Comprehensive Single (01/28/2022 2:16 PM CDT) [...] LEOS Study Date: 01/28/2022 1:24pm Pat. NO: [id number] Referring ??MD: ZACH METZGER Site: [facility] Upholstery Repairer: Tania Reid RD MS : 1990 Age: [...] lb 13 ? oz EFW by ?Hadlock ([id number]-FL) Head / Face / Neck Biometry: Environmental Health Technician ? 4.6 ? mm CM ?5.7 ? [...] cava. Inferior vena cava. 3-vessel view. ? 5-pqsebz-bsgveia view. Cardiac position. Cardiac size. Cardiac rhythm. [...] We [facility]. Referred due [...] Pat. Name:Alejandro LEOS Date: 1:24pm Pat. NO: [id number] :ROMANA METZGER [facility]Tania Reid RDMS :1990Age:31 INDICATION Left, Echogenic Intracardiac [...] 0 lb 13 oz EFW by Hadlock ([id number]-FL) Head / Face / Neck Biometry: Environmental Health Technician 4.6 mm CM 5.7 mm Nasal bone [...] vena cava. Inferior vena cava. 3-vessel view. 3-uwgvor-njbhyiv view. Cardiac position . Cardiac size. Cardiac [...] RECOMMENDATION We [facility]. Referred due [...] volume appeared no rmal. Romana Metzger MD [facility] US ORDERABLES documented in this encounter Visit Diagnoses Diagnosis related condition, antepartum documented in this encounter Care Teams Mva Reactor Operator Relationship Specialty Start Date End Date No Ref-Primary, Physician PCP - General 01/27/22 documented as of this encounter
--- OUTSIDE RECORDS SUMMARY | 2022-05-27 10:59 | XMS_ITS | Encounter Summary ---
:1990 Author Organization [facility] Address [address] [place] [address] Care Team Providers Name Role Phone Unavailable Primary Care Provider Unavailable Encounter Details Date Type Department Care Team Description 07/03/2009 Hospital Encounter [facility] INPT/OBSRV Cecil Tipton M.D. [address] [place], [place] [address] (Wo rk) Social History Tobacco Use Types Packs/Day Years Used Date Smoking Tobacco: Never Assessed Sex Assigned at Date Recorded Not on file documented as of this encounter Plan of Treatment Not on filedocumented as of this encounter Visit Diagnoses Not on filedocumented in this encounter
--- OUTSIDE RECORDS SUMMARY | 2022-05-27 10:59 | XMS_ITS | Encounter Summary ---
:1990 Author Organization [facility] Address [address] [place] [address] Care Team Providers Name Role Phone Unavailable Primary Care Provider Unavailable Encounter Details Date Type Department Care Team Description 11/26/2009 Hospital Encounter [facility] INPT/OBSRV Sánchez Roland L, GRIS, C.N.P., D.N.P. [address] [place] [address] (Wo rk) Social History Tobacco Use Types Packs/Day Years Used Date Smoking Tobacco: Never Assessed Sex Assigned at Date Recorded Not on file documented as of this encounter Plan of Treatment Not on filedocumented as of this encounter Visit Diagnoses Not on filedocumented in this encounter
--- OUTSIDE RECORDS SUMMARY | 2022-05-27 10:59 | XMS_ITS | Encounter Summary ---
:1990 Author Organization [place] Address [facility] [place] [address] Care Team Providers Name Role Phone No Ref-Primary, Physician Primary Care Provider [phone] Afsaneh Enciso DO Unavailable [phone] Reason for Referral Diagnostic Imaging Ultrasound (Routine) - Pending Review Specialty Diagnoses / Procedures Referred By Contact Refer red To Contact Diagnoses Suspected anomaly, antepartum, single or unspecified fetus Afsaneh Enciso, Procedures [facility] US Comprehensive Single F/U DO [address] [place], [place] [address] Referral ID Status Reason Start Date Expiration Date Visits V isits Requested Authorized [id number] Pending 01/28/2022 01/28/2023 1 1 Review Reason for Visit Diagnostic Imaging Ultrasound (Routine) - Pending Review Specialty Diagnoses / Procedures Referred By Contact Refer red To Contact Diagnoses Suspected anomaly, antepartum, single or unspecified fetus Afsaneh Enciso, Procedures [facility] US Comprehensive Single F/U DO [address] [place], [place] [address] Referral ID Status Reason Start Date Expiration Date Visits V isits Requested Authorized [id number] Pending 01/28/2022 01/28/2023 1 1 Review Encounter Details Date Type Department Care Team Description 02/25/[address] [facility] Heather Sanderson DO [address] [place] [address] Suspected Maternal Pinky Cottrell MD [address] [place], [place] [address] anomaly, Medicine Center antepartum, single [place] or unspecified [address] [facility] fetus [address] [place] [address] Social History Tobacco Use Types [...] Procedure Name Priority Date/Time Associated Comments Diagnosis [facility] US COMPREHENSIVE Routine 02/25/2022 8:31 AM Suspected feta l Results for this SINGLE F/U CDT anomaly, procedure are i n antepartum, single the resul ts or unspecified section. fetus documented in this encounter Results [facility] US Comprehensive Single F/U (02/25/2022 8:31 [...] LEOS Study Date: 02/25/2022 7:44am Pat. NO: [id number] Referring ??MD: ZACH METZGER Site: [facility] Marketing Budget Analyst: Juliette Ocasio RD MS : 1990 Age: [...] lb 11 ? oz EFW by ?Hadlock ([id number]-FL) Head / Face / Neck Biometry: Statistical Consultant ? 5.6 ? mm CM ?6.1 ? mm ANATOMY Abdomen ? Right adrenal gland: prominent ? Left adrenal gland: prominent The following structures appear normal: Head / Neck ? Cranium. Head size. Head shape. Lateral ventricles. Midline falx. Cavum septi pellucidi. Cerebellum. Cisterna magna. Thalami. Face ? Lips. Profile. Nose. Heart / Thorax ?4-chamber view. RVOT view. LVOT view. 5-ighacz-nngnnqw view. ? Diaphragm. Abdomen ? Stomach. Kidneys. [...] Pat. Name:Alejandro LEOS Date: 7:44am Pat. NO: [id number] :MARCO A METZGER [facility]Juliette Ocasio RDMS :1990Age:31 INDICATION Prominent adrenal glands [...] 1 lb 11 oz EFW by Hadlock ([id number]-[id number]-FL) Head / Face / Neck Biometry: Statistical Consultant 5.6 mm CM 6.1 mm ANATOMY Abdomen Right adrenal gland: prominent Left adrenal gland: prominent The following structures appear normal: Head / Neck Cranium. Head size. Head sha pe. Lateral ventricles. Midline falx. Cavum septi pellucidi. Cerebellum. Cisterna magna. Thalami. Face Lips. Profile. Nose. Heart / Thorax 4-chamber view. RVOT view . LVOT view. 5-yezihm-gibnqdv view. Diaphragm. Abdomen Stomach. Kidneys. Bladder. Spine [...] fetus documented in this encounter Care Teams Television Schedule Coordinator Relationship Specialty Start Date End Date No Ref-Primary, Physician PCP - General 01/27/22 Afsaneh Enciso DO Assigned OBGYN Provider 02/06/22 04/29/[address] [place] [address] [address] [place], [place] [id number] documented as of this encounter
--- OUTSIDE RECORDS SUMMARY | 2022-05-27 10:59 | XMS_ITS | Encounter Summary ---
:1990 Author Organization [facility] Address [address] [place] [address] Care Team Providers Name Role Phone Unavailable Primary Care Provider Unavailable Encounter Details Date Type Department Care Team Description 01/25/2010 Hospital Encounter [facility] INPT/OBSRV Lisa Velez M.D. [address] [place] [phone] (Wo rk) Social History Tobacco Use Types Packs/Day Years Used Date Smoking Tobacco: Never Assessed Sex Assigned at Date Recorded Not on file documented as of this encounter Plan of Treatment Not on filedocumented as of this encounter Visit Diagnoses Not on filedocumented in this encounter
--- NOTE | 2022-05-27 11:15 | CRLHL7_ITS ---
For Patients: As a result of the Century Cures Act, medical imaging exams and procedure reports are released immediately into your electronic medical record. You may view this report before your referring provider. If you have questions, please contact your health care provider. INDICATION: COVID in . COMPARISON: OB ultrasound 05/19/2022. TECHNIQUE: Real time villar scale imaging of the fetus was performed without non-stress testing. FINDINGS: Sonographic imaging demonstrates a single living intrauterine gestation. The fetus demonstrates a regular cardiac rate of 168 beats per minute. The fetus has a cephalic orientation. The placenta lies anterior and fundal. Single deepest pocket measures 9.8 cm and the amniotic fluid index measures 28.2 cm (2/2). The fetus was active (2/2). The fetus demonstrated normal breathing movements (2/2). There was normal flexion and extension of the trunk and extremities (2/2). IMPRESSION: 1. Normal biophysical profile score 8 out of 8. 2. Polyhydramnios with ERICA measuring 28.2 cm. Dictated by Jocelyn Still MD @ 05/27/2022 1:08:54 PM (Electronically Signed)
== END 2022-05-27 10:55 | disposition home or self-care (01) ==
LOC: US 10:55
PROVIDERS: Visit Provider Advanced Practice Midwife
DX: O98.519 Other viral diseases complicating pregnancy, unspecified trimester (principal); U07.1 COVID-19
CPT/HCPCS: 76819

== ENCOUNTER 2022-06-02 14:45 | Outpatient (CLI) | payer OTHER, SELFPAY ==
--- NOTE | 2022-06-02 15:00 | CRLHL7_ITS ---
For Patients: As a result of the Century Cures Act, medical imaging exams and procedure reports are released immediately into your electronic medical record. You may view this report before your referring provider. If you have questions, please contact your health care provider. INDICATION: COVID in . COMPARISON: OB ultrasound 05/27/2022. TECHNIQUE: Real time villar scale imaging of the fetus was performed without non-stress testing. FINDINGS: Sonographic imaging demonstrates a single living intrauterine gestation. The fetus demonstrates a regular cardiac rate of 157 beats per minute. The fetus has a cephalic orientation. The placenta lies anteriorly. Amniotic fluid volume appears normal with single deepest pocket measuring 5.0 cm and the amniotic fluid index measuring 19.4 cm (2/2). Echogenic particles are noted within the fluid. The fetus was active (2/2). The fetus demonstrated normal breathing movements (2/2). There was normal flexion and extension of the trunk and extremities (2/2). IMPRESSION: 1. Normal biophysical profile score 8 out of 8. 2. ERICA within normal limits on today`s exam. Dictated by Jocelyn Still MD @ 06/02/2022 8:14:18 PM (Electronically Signed)
--- OUTSIDE RECORDS SUMMARY | 2022-06-02 15:04 | XMS_ITS | Encounter Summary ---
:1990 Author Organization [facility] Address [address] [place] [address] Care Team Providers Name Role Phone Judi Strickland APRN, C.N.P., D.N.P. Primary Care Provider Encounter Details Date Type Department Care Team Description 10/18/2021 Clinical Communication Department of Nayeli Toscano Obstetrics [facility] in [address] [address] [place], [place] [phone] [address] (Work) [phone] Social History Tobacco Use Types Packs/Day Years Used Date Smoking Tobacco: Never Smokeless Tobacco: Never Sex Assigned at Date Recorded Not on file documented as of this encounter Miscellaneous Notes Telephone Encounter - Kalyani Bardales R.N. - 10/20/2021 9:37 AM CST Spoke with patient. States that she is unsure if she is planning to come through or [place]. Will call back when decides where she wants her care. P SPECIALIST Telephone Encounter - Carleen Fontaine - 10/18/2021 4:44 PM CST New ob P SPECIALIST documented in this encounter Plan of Treatment Not on filedocumented as of this encounter Visit Diagnoses Not on filedocumented in this encounter Care Teams Long Distance Operator Relationship Specialty Start Date End Date Judi Strickland APRN, C.N.P., D.N.P. PCP - General 07/25/[address] [place] [phone] documented as of this encounter
--- OUTSIDE RECORDS SUMMARY | 2022-06-02 15:04 | XMS_ITS | Encounter Summary ---
:1990 Author Organization [facility] Address [address] [place] [address] Care Team Providers Name Role Phone Judi Strickland APRN, C.N.P., D.N.P. Primary Care Provider Reason for Visit Appointment Request (Routine) - Closed Specialty Diagnoses / Procedures Referred By Contact Refer red To Contact Family Medicine Referral ID Status Reason Start Date Expiration Date Visits Requ ested Visits Authorized [id number] Closed 12/21/2021 12/21/2022 1 1 Encounter Details Date Type Department Care Team Description 12/21/2021 Internal E-Consult Department of Family Mehnaz Chong OVID-19 Infection Medicine, Center [address] (Primary Dx) [address] Professional [address] [facility] in [facility], [address] [place] [address] [place], [place] [phone] (Work) Social History Tobacco Use Types Packs/Day Years Used Date Smoking Tobacco: Never Smokeless Tobacco: Never Sex Assigned at Date Recorded Not on file documented as of this encounter Consult Notes Mehnaz Chong, D.OAnia - 12/21/2021 11:00 AM CDT E-Consult for Request for Outpatient Treatment for Acute Covid-19 Ms. Felix tested positive for COVID-19. The Covid-19 Infection flag in the [place] Chart has been updated. [facility], in collaboration with the [place] [facility], is currently able to offer Carol oral [...] order the appropriate therapy. Mehnaz Chong D.O. [place] COVID Care Team [facility] and [facility] -Eligibility for treatment requires a [...] Primary documented in this encounter Care Teams Senior Fire Protection Engineer Relationship Specialty Start Date End Date Judi Strickland APRN, C.N.P., D.N.P. PCP - General 07/25/[address] [place] [phone] documented as of this encounter
--- OUTSIDE RECORDS SUMMARY | 2022-06-02 15:04 | XMS_ITS | Encounter Summary ---
:1990 Author Organization [facility] Address [address] [place] [address] Care Team Providers Name Role Phone Elsewhere, Pcp Primary Care Provider Unavailable Reason for Visit Reason Comments Abdominal Pain Started this AM upper abdome n contracts shooting pain. Appointment Request (Routine) - Closed Specialty Diagnoses / Procedures Referred By Contact Refer red To Contact Family Medicine Referral ID Status Reason Start Date Expiration Date Visits Requ ested Visits Authorized [id number] Closed 10/11/2017 04/09/2018 1 1 Encounter Details Date Type Department Care Team Description 10/11/2017 Office Visit Department of Family Suzanne Garcia Pa in Right Upper Medicine, Rosalia GRIS, C.N.PAnia, Linn enriquezt (Primary Dx) Clinic, in [place] [address] [place] [phone] Social History Tobacco Use Types Packs/Day Years Used Date Smoking Tobacco: Never Smokeless Tobacco: Never Sex Assigned at Date Recorded Not on file documented as of this encounter Last Filed Vital Signs Vital Sign Reading Time Taken Comments Blood Pressure 123/75 10/11/2017 4:29 PM CARPENTER ASSISTANT Pulse 100 10/11/2017 4:29 PM CARPENTER ASSISTANT Temperature 37.1 ??C (98.8 ??F) 10/11/2017 4:29 PM CARPENTER ASSISTANT Respiratory Rate 16 10/11/2017 4:29 PM CARPENTER ASSISTANT Oxygen Saturation 100% 10/11/2017 4:29 PM CARPENTER ASSISTANT Inhaled Oxygen Concentration - - Weight 78.7 kg (173 lb 8 oz) 10/11/2017 4:29 PM CARPENTER ASSISTANT Height - - Body Mass Index 28 09/15/2017 11:20 AM CARPENTER ASSISTANT documented in this encounter Patient Instructions Patient InstructionsSuzanne Garcia APRN, D.N.P., C.N.P. - 10/11/2017 4:45 PM CST Please schedule abdominal U/S in [place] at 9am in their urgent spot ENTER ASSISTANT documented in this encounter Progress Notes Suzanne [...] pericholecystic fluid. Negative sonographic Marshall sign, per land developer. Intrahepatic ducts: Not dilated. Common duct: Not dilated. NORMAL caliber abdominal aorta. ?? IMPRESSION: Normal gallbladder ultrasound. ASSESSMENT/PLAN: #1 Pain Right Upper Quadrant Given patient's symptoms and clinical exam, I am suspicious for cholelithiasis versus cholecystitis.Blood work done today and equivocal - arranged for a semi- urgent abdominal ultrasound which will be for performed in [place] tomorrow morning (10/12/17). Abdominal U/S is negative for concerns. Suspect possible muscular strain. Recommended conservative management - ynvy-xdi-hyksizi analgesics, ice/heat, rest. Patient is asymptomatic otherwise [...] the content. Suzanne Garcia APRN, D.N.P., C.N.P. ENTER ASSISTANT documented in this encounter Plan of Treatment Not on filedocumented as of this encounter Procedures Procedure Name Priority Date/Time Associated Comments Diagnosis MORPHOLOGY EVALUATION Routine 10/11/2017 5:03 PM Results for this CARPENTER ASSISTANT procedure are i n the results section. CBC WITH DIFFERENTIAL, Routine 10/11/2017 5:03 PM Pain Right U pper Results for this B CARPENTER ASSISTANT Quadrant procedure are i n the results section. LIPASE, S/P Routine 10/11/2017 5:03 PM Pain Right Upper Resul ts for this CARPENTER ASSISTANT Quadrant procedure are i n the results section. AMYLASE, TOT, S Routine 10/11/2017 5:03 PM Pain Right Upper Re sults for this CARPENTER ASSISTANT Quadrant procedure are i n the results section. COMPREHENSIVE Routine 10/11/2017 5:03 PM Pain Right Upper Resu lts for this METABOLIC PANEL, S/P CARPENTER ASSISTANT Quadrant procedu re are in the results section. documented in this encounter Results Morphology Evaluation (10/11/2017 5:03 PM CARPENTER ASSISTANT) Analysis Performed At Patho logist Time Signature RBC Morphology Normal 10/11/2017 [facility] 7:27 PM [facility] Morphology Normal 10/11/2017 [facility] 7:27 PM [facility] Estimate Adequate Adequate 10/11/2017 [facility] 7:27 PM [facility] Specimen Anatomical Collection Method Collection Time Receive d Time (Source) Location / / Volume Laterality Blood 10/11/2017 5:03 PM 8 5:53 CARPENTER ASSISTANT PM CARPENTER ASSISTANT Suzanne Garcia APRN, Zulema.N.P., D.N.P. LAB BLOOD ADD-ON Performing Organization Address City/State/ZIP Code Phon e Number [facility] [id number] [place] [address] [place] [facility] Lipase (10/11/2017 5:03 PM CARPENTER ASSISTANT) P athologist Signature Lipase, S 34 13 - 60 U/L 10/11/2017 [facility] 5:53 PM [facility] Specimen Anatomical Collection Method Collection Time Receive d Time (Source) Location / / Volume Laterality Blood (Blood, 10/11/2017 5:03 PM 10/11/19 18 5:30 Venous) CARPENTER ASSISTANT PM CARPENTER ASSISTANT Oswald Campos APRNN.Jie., D.N.P. LAB BLOOD ADD-ON Performing Organization Address [facility] Phon e Number [address] [address] [place] [facility] Amylase, Total (10/11/2017 5:03 PM CARPENTER ASSISTANT) P athologist Signature Amylase, Total, 44 26 - 102 10/11/2017 [facility] S U/L 5:53 PM [facility] Specimen Anatomical Collection Method Collection Time Receive d Time (Source) Location / / Volume Laterality Blood (Blood, 10/11/2017 5:03 PM 10/11/19 18 5:30 Venous) CARPENTER ASSISTANT PM CARPENTER ASSISTANT Oswald Campos APRNN.P., D.N.P. LAB BLOOD ADD-ON Performing Organization Address [facility] Phon e Number [address] [address] [place] [facility] (ABNORMAL) CBC with Differential (10/11/2017 5:03 PM CARPENTER ASSISTANT) [facility] Method Time Signature Hemoglobin 11.2 (L) 11.6 - 10/11/2017 [facility] 15.0 g/dL 7:02 PM [facility] Hematocrit 34.4 (L) 35.5 - 10/11/2017 [facility] 44.9 % 7:02 PM [facility] Erythrocytes 5.63 (H) 3.92 - 10/11/2017 [facility] 5.13 7:02 PM [facility] x10(12)/L [facility] MCV 61.1 (L) 78.2 - 10/11/2017 [facility] 97.9 fL 7:02 PM [facility] RBC Distrib Width 14.7 12.2 - 10/11/2017 [facility] 16.1 % 7:02 PM [facility] Platelet Count 292 157 - 371 10/11/2017 [facility] x10(9)/L 7:02 PM [facility] Leukocytes 11.3 (H) 3.4 - 9.6 10/11/2017 [facility] x10(9)/L 7:02 PM [facility] Neutrophils 7.70 (H) 1.56 - 10/11/2017 [facility] 6.45 7:02 PM CARPENTER ASSISTANT HEALTH x10(9)/L [facility] Lymphocytes 2.95 0.95 - 10/11/2017 [facility] 3.07 7:02 PM CARPENTER ASSISTANT HEALTH x10(9)/L [facility] Monocytes 0.52 0.26 - 10/11/2017 [facility] 0.81 7:02 PM CARPENTER ASSISTANT HEALTH x10(9)/L [facility] Eosinophils 0.13 0.03 - 10/11/2017 [facility] 0.48 7:02 PM CARPENTER ASSISTANT HEALTH x10(9)/L [facility] Basophils 0.02 0.01 - 10/11/2017 [facility] 0.08 7:02 PM CARPENTER ASSISTANT HEALTH x10(9)/L [facility] Specimen Anatomical Collection Method Collection Time Receive d Time (Source) Location / / Volume Laterality Blood 10/11/2017 5:03 PM 8 7:02 CARPENTER ASSISTANT PM CARPENTER ASSISTANT Suzanne Garcia APRN C.N.P., D.N.P. LAB BLOOD ADD-ON Performing Organization Address City/State/ZIP Code Phon e Number [facility]- [address] [place] [phone] [place] [address] LAB CMP (Comprehensive Metabolic Panel) (10/11/2017 5:03 PM CARPENTER ASSISTANT) P athologist Signature Potassium, S 4.3 3.6 - 5.2 10/11/2017 [facility] mmol/L 5:53 PM [facility] Sodium, S 140 135 - 145 10/11/2017 [facility] mmol/L 5:53 PM [facility] Chloride, S 102 98 - 107 10/11/2017 [facility] mmol/L 5:53 PM [facility] Bicarbonate, S 25 22 - 29 10/11/2017 [facility] mmol/L 5:53 PM [facility] Anion Gap 13 7 - 15 10/11/2017 [facility] 5:53 PM [facility] BUN (Blood Urea 13 6 - 21 10/11/2017 [facility] Nitrogen), S mg/dL 5:53 PM [facility] Creatinine 0.94 0.59 - 10/11/2017 [facility] 1.04 mg/dL 5:53 PM [facility] eGFR 85 >=60 10/11/2017 [facility] Non-Black/Afric mL/min/BSA 5:53 PM [facility] Comment: ----ADDITIONAL INFORMATION---- Estimated GFR calculated using the 2009 CKD_EPI creatinine equation. eGFR Black/ >90 >=60 mL/min/BSA 10/11/2017 5:53 PM [facility] Comment: ----ADDITIONAL INFORMATION---- Estimated GFR calculated using the 2009 CKD_EPI creatinine equation. Calcium, Total, S 9.6 8.9 - 10.1 10/11/2017 5:53 PM [facility] mg/dL [facility] Glucose, S 93 70 - 140 mg/dL 10/11/2017 5:53 PM [facility] Protein, Total, S 7.2 6.3 - 7.9 g/dL 10/11/2017 5:53 P M [facility] Albumin, S 4.5 3.5 - 5.0 g/dL 10/11/2017 5:53 PM [facility] Aspartate Aminotransferase 22 8 - 43 U/L 10/11/2017 5 :53 PM [facility] Alkaline Phosphatase, S 61 37 - 98 U/L 10/11/2017 5:5 3 PM [facility] Alanine Aminotransferase 25 7 - 45 U/L 10/11/2017 5:5 3 PM [facility] Bilirubin, Total, S 0.5 <=1.2 mg/dL 10/11/2017 5:53 PM [facility] Specimen Anatomical Collection Method Collection Time Receive d Time (Source) Location / / Volume Laterality Blood 10/11/2017 5:03 PM 8 5:31 CARPENTER ASSISTANT PM CARPENTER ASSISTANT Zulema Campos APRN.N.P., D.N.P. LAB BLOOD ADD-ON Performing Organization Address City/State/[facility] Code Phon e Number [facility]- [phone] [address] [place] [facility] documented in this encounter Visit Diagnoses Diagnosis Pain Right Upper Quadrant - Primary documented in this encounter Care Teams International Marketing Coordinator Relationship Specialty Start Date End Date Elsewhere, Pcp PCP - General Family Medicine 09/05/17 06/26/18 documented as of this encounter
--- OUTSIDE RECORDS SUMMARY | 2022-06-02 15:04 | XMS_ITS | Encounter Summary ---
:1990 Author Organization [facility] Address [address] [place] [address] Care Team Providers Name Role Phone Judi Strickland APRN, C.N.P., D.N.P. Primary Care Provider Reason for Visit Reason Comments Outpatient Infusion Episode Based Medications (Routine) - Closed Specialty Diagnoses / Procedures Referred By Contact Refer red To Contact Diagnoses COVID-19 Infection Gustavo Abbott McHs Inf Surge Cacf Procedures [place] INJECTION, BEBTELOVIMAB, 175MG Meron Isaac, M.P.H. [address] [place] [address] [address] [place] [phone] Referral ID Status Reason Start Date Expiration Date Visits Requ ested Visits Authorized [id number] Closed 12/21/2021 12/21/2022 1 1 Encounter Details Date Type Department Care Team Description 12/22/2021 Infusion Department of Infusion Scar COVID-19 Infection Therapy in [place] Gustavo Isaac M.D., (Primary Dx) [place], [place] M.P.H. [address] [place] [address] [address] [place] [phone] Social History Tobacco Use [...] at 1200, For 1 dose, Patient/caregiver factsheet: https://www.fda.gov/media/105540/ download Preparation: Remove vial from refrigerated storage [...] Infection Onset Date Last Indicated Resolved Time [id number]: Symptom onset 12/21/2021 12/21/2021 5:38 AM CDT 12/18/21 documented as of this encounter Care Teams Rag Collector Relationship Specialty Start Date End Date Judi Strickland APRN, C.N.P., D.N.P. PCP - General 07/25/[address] [place] [phone] documented as of this encounter
--- OUTSIDE RECORDS SUMMARY | 2022-06-02 15:04 | XMS_ITS | Encounter Summary ---
:1990 Author Organization [facility] Address [address] [place] [address] Care Team Providers Name Role Phone Seda Solis P.A.-C. Primary Care Provider Encounter Details Date Type Department Care Team Description 02/13/2019 Nurse Triage Department of [facility], Jania Shipman R.N. Medicine, [facility], in [address] [place], [place], [place] [address] [place] [address] [place] [address] [phone] Social History Tobacco Use Types Packs/Day Years Used Date Smoking Tobacco: Never Smokeless Tobacco: Never Sex Assigned at Date Recorded Not on file documented as of this encounter Plan of Treatment Not on filedocumented as of this encounter Visit Diagnoses Not on filedocumented in this encounter Care Teams Security Services Specialist Relationship Specialty Start Date End Date Seda Solis P.A.-C. PCP - General Family Medicine 06/27/18 07/24/19 documented as of this encounter
--- OUTSIDE RECORDS SUMMARY | 2022-06-02 15:04 | XMS_ITS | Encounter Summary ---
:1990 Author Organization [facility] Address [address] [place] [address] Care Team Providers Name Role Phone Elsewhere, Pcp Primary Care Provider Unavailable Reason for Visit Reason Comments Other ingrown toenail very painful left big toe Appointment Request (Routine) - Closed Specialty Diagnoses / Procedures Referred By Contact Refer red To Contact Family Medicine Referral ID Status Reason Start Date Expiration Date Visits Requ ested Visits Authorized [id number] Closed 09/12/2017 03/11/2018 1 1 Encounter Details Date Type Department Care Team Description 09/15/2017 Office Visit Department of Family [facility] In[facility] wn Toenail Medicine, Gladys Meron (Primary Dx) Clinic, [place] [address] [place] [phone] Social History Tobacco Use Types Packs/Day Years Used Date Smoking Tobacco: Never Smokeless Tobacco: Never Sex Assigned at Date Recorded Not on file documented as of this encounter Last Filed Vital Signs Vital Sign Reading Time Taken Comments Blood Pressure 125/82 09/15/2017 11:20 AM ASSISTANT SPA DIRECTOR Pulse 110 09/15/2017 11:20 AM ASSISTANT SPA DIRECTOR Temperature 37 ??C (98.6 ??F) 09/15/2017 11:20 AM ASSISTANT SPA DIRECTOR Respiratory Rate 16 09/15/2017 11:20 AM ASSISTANT SPA DIRECTOR Oxygen Saturation - - Inhaled Oxygen Concentration - - Weight 78.2 kg (172 lb 6.4 oz) 09/15/2017 11:20 AM ASSISTANT SPA DIRECTOR Height 167.6 cm (5' 6) 09/15/2017 11:20 AM ASSISTANT SPA DIRECTOR Body Mass Index 27.83 09/15/2017 11:20 AM ASSISTANT SPA DIRECTOR documented in this encounter H&P Notes Martin [...] for a wedge resection. See procedure note. STANT SPA DIRECTOR documented in this encounter Procedure Notes Martin [...] 25 G Block technique: Four-sided ring block Newburg injection procedure: Anatomic landmarks identified, incremental injection, [...] Up to date Complications: no immediate complications STANT SPA DIRECTOR documented in this encounter Plan of Treatment Not on filedocumented as of this encounter Procedures Procedure Name Priority Date/Time Associated Diagnosis Comme nts UT EXCISN INGROWN Routine 09/15/2017 11:30 AM Ingrown Toenail Results for this TOENAIL ASSISTANT SPA DIRECTOR procedure are i n the results section. documented in this encounter Results UT EXCISN INGROWN TOENAIL (09/15/2017 11:30 AM ASSISTANT SPA DIRECTOR) Narrative MMODAL - 09/15/2017 11:30 AM ASSISTANT SPA DIRECTOR Martin Jay M.D. ? 09/16/2017 ??9:29 AM [...] G ??Block technique: ??Four-sided ring bl ock ??Newburg injection procedure: ??Anatomic landmarks identified, incremental injection, [...] Primary documented in this encounter Care Teams Physicians Assistant Relationship Specialty Start Date End Date Elsewhere, Pcp PCP - General Family Medicine 09/05/17 06/26/18 documented as of this encounter
--- OUTSIDE RECORDS SUMMARY | 2022-06-02 15:04 | XMS_ITS | Clinical Summary ---
:1990 Author Organization [facility] Address [address] [place] [address] Care Team Providers Name Role Phone Judi Strickland APRN, C.N.P., D.N.P. Primary Care Provider Source Comments Patient records contain information from all sites at [facility]. For routine questions regarding patient records, call [phone] during business hours, M-F 8:00 AM - 5:00 PM Central Time. Record requests for emergency care only can be directed to [phone] at any time.[facility] Allergies No known active allergies Medications [...] (173 lb 8 oz) 10/11/2017 4:29 PM NEWS CORRESPONDENT Height 167.6 cm (5' 6) 09/15/2017 11:20 AM NEWS CORRESPONDENT Body Mass Index 28 09/15/2017 11:20 AM NEWS CORRESPONDENT Plan of Treatment Health Maintenance Due Date [...] ype Group Dates [place] [employer] [id number] 2018-Prese [address] [employer] Medicaid HMO [place]ALTH [place] [address] [facility] [place] [address] Care Teams Underground Bolting Machine Operator Relationship Specialty Start Date End Date Judi Strickland, GRIS, C.N.P., D.N.P. PCP - General 07/25/[id number] [place] [address] [place] [address]
--- OUTSIDE RECORDS SUMMARY | 2022-06-02 15:04 | XMS_ITS | Encounter Summary ---
:1990 Author Organization [facility] Address [address] [place] [address] Care Team Providers Name Role Phone Judi Strickland APRN, C.N.P., D.N.P. Primary Care Provider Reason for Visit Reason Comments Patient Education Encounter Details Date Type Department Care Team Description 12/21/2021 Clinical Communication Department of Maris Francisco Education Infusion Therapy in [place], [address] [place], [place] [address] [facility] [address] [address] [place] [phone] Social History Tobacco Use Types Packs/Day Years [...] Education Information Discussed Covid:consent for Bebtelovimab at [place] PLAN Disposition/Recommendation: patient transferred to the appointment desk Information/Education: patient/caller able to teach back Caller agreeable to plan of care: yes The following references were used: nursing clinical judgement and other monoclonal education Hi, my name is Carmen Francisco R.N. from [facility] with a recommendation that you receive [...] infusions for the treatment of mild COVID-19. [facility] supports this treatment for certain people. I am happy to share with you that since August 2020 [facility] has infused over 23, 000 patients with a monoclonal antibody infusion across our [place] sites. I am sharing this because we [...] illnesses ??? Are taking any medications (prescription, kxlk-moy-cpqnpui, vitamins, and herbal products) How will I [...] to treat people with COVID-19. Go to https://www.mavud89rzmfrcclwzmvgglpxcq.nih.gov/ for information on the emergency use of [...] than the risk from the treatment. The [facility] Obstetrics and Gynecology teamsupports the use [...] has been reached. Report side effects to [employer] at www.fda.gov/medEmbarketch, call 5-683-PZD-6938. How can I learn more? Ask your healthcare provider ??? Visit https://www.kzrln50wthmmqubpyafrhnrwfe.nih.gov/ ??? Contact your local or state public health department Would you like to learn more about what an Emergency Use Authorization (EUA)?Yes; The [place] FDA has made these monoclonal antibody infusions available under an emergency access mechanism calledan EUA. The EUA is supported by a [place] of Health and Human Service (HHS) declaration that circumstances exist to justify the emergency use of drugs and biological products during the COVID-19 pandemic. What is the cost for this medication? The medication is provided to [facility] at no charge and there is no cost of the medication to youthe patient. Any associated costs with the infusion will be billed to the patient's insurance company. [place] does not want cost to be a [...] be provided to patient/caregiver at the [facility]. Remote Patient Monitoring: System Calculated MASS [...] the isolation and quarantine requirements outlined by [facility] health department. All isolation periods are [...] Infection Onset Date Last Indicated Resolved Time [id number]: Symptom onset 12/21/2021 12/21/2021 5:38 AM CDT 12/18/21 documented as of this encounter Care Teams Autocad Detailer Relationship Specialty Start Date End Date Judi Strickland APRN, C.N.P., D.N.P. PCP - General 07/25/[id number] [place] [phone] documented as of this encounter
--- OUTSIDE RECORDS SUMMARY | 2022-06-02 15:04 | XMS_ITS | Encounter Summary ---
:1990 Author Organization [facility] Address [address] [place] [address] Care Team Providers Name Role Phone Judi Strickland APRN C.N.P., D.N.P. Primary Care Provider Reason for Referral Outpatient (Routine) - Authorized Specialty Diagnoses / Procedures Referred By Contact Refer red To Contact Family Medicine Judi Strickland APRN, [facility] C.N.P., D.N.P. [address] [place] [phone] Referral ID Status Reason Start Date Expiration Date Visits V isits Requested Authorized [id number] Authorized 03/08/2022 03/08/2023 1 1 Encounter Details Date Type Department Care Team Description 03/08/2022 Orders Only [facility] SEMN PCP TH EMILIANOT Sa marshall [place] M.D. [address] [place], [place] [phone] (Wo rk) Social History Tobacco Use Types Packs/Day Years Used Date Smoking Tobacco: Never Smokeless Tobacco: Never Sex Assigned at Date Recorded Not on file documented as of this encounter Plan of Treatment Scheduled Referrals Name Type Priority Associated Diagnoses [facility] Outpatient Referral Routine Expec jacob: office visit 03/22/2022, (clinic) Expires: 09/04/2022 documented as of this encounter Visit Diagnoses Not on filedocumented in this encounter Care Teams Physical Plant Employee Relationship Specialty Start Date End Date Judi Strickland APRN, C.N.P., D.N.P. PCP - General 07/25/[address] [phone] documented as of this encounter
--- OUTSIDE RECORDS SUMMARY | 2022-06-02 15:04 | XMS_ITS | Encounter Summary ---
:1990 Author Organization [facility] Address [address] [place] [address] Care Team Providers Name Role Phone Elsewhere, Pcp Primary Care Provider Unavailable Encounter Details Date Type Department Care Team Description 09/05/2017 Orders Only Department of Family Medicine, Elsewhere, Pcp [facility], in [address] [phone] Social History Tobacco Use Types Packs/Day Years Used Date Smoking Tobacco: Never Sex Assigned at Date Recorded Not on file documented as of this encounter Plan of Treatment Not on filedocumented as of this encounter Visit Diagnoses Not on filedocumented in this encounter Care Teams Cruise Staff Member Relationship Specialty Start Date End Date Elsewhere, Pcp PCP - General Family Medicine 09/05/17 06/26/18 documented as of this encounter
--- OUTSIDE RECORDS SUMMARY | 2022-06-02 15:04 | XMS_ITS | Encounter Summary ---
:1990 Author Organization [facility] Address [address] [place] [address] Care Team Providers Name Role Phone Seda Solis P.A.-C. Primary Care Provider [phone] Encounter Details Date Type Department Care Team Description 09/11/2018 Clinical Communication Department of [facility] Mary Solis [facility], [place] Cris Beard [facility], [id number] [place] [address] [phone] (Work) [phone] Social History Tobacco Use Types Packs/Day Years Used Date Smoking Tobacco: Never Smokeless Tobacco: Never Sex Assigned at Date Recorded Not on file documented as of this encounter Plan of Treatment Not on filedocumented as of this encounter Visit Diagnoses Not on filedocumented in this encounter Care Teams Chemical Maker Relationship Specialty Start Date End Date Seda Solis P.A.-C. PCP - General Family Medicine 06/27/18 07/24/19 documented as of this encounter
--- OUTSIDE RECORDS SUMMARY | 2022-06-02 15:04 | XMS_ITS | Encounter Summary ---
:1990 Author Organization [facility] Address [address] [place] [address] Care Team Providers Name Role Phone Judi Strickland APRN, C.N.P., D.N.P. Primary Care Provider Encounter Details Date Type Department Care Team Description 11/10/2021 Hospital Encounter Department of [facility], Medicine in [place], P.A.-[address] [phone] (Wo rk) Social History Tobacco Use Types [...] COVID19 Pending 11/09/2021 11/10/2021 11/11/2021 7:23 AM AUTOMATIC DEVELOPER documented as of this encounter Care Teams Finish Remover Relationship Specialty Start Date End Date Judi Strickland APRN, C.N.P., D.N.P. PCP - General 07/25/[address] [place] [address] EMILIANO Madrigal [phone] documented as of this encounter
--- OUTSIDE RECORDS SUMMARY | 2022-06-02 15:04 | XMS_ITS | Encounter Summary ---
:1990 Author Organization [facility] Address [address] [place] [address] Care Team Providers Name Role Phone Unavailable Primary Care Provider Unavailable Encounter Details Date Type Department Care Team Description 06/24/2016 Hospital Encounter [facility] [place] Isabela Solis, P.A.-C. [address] [place], [place] [phone] (Wo rk) Social History Tobacco Use Types [...] GUSTAFSON P.A.-C. On: 06/27/2016 01:37 PM Source: [employer] Document Id: [id number] documented in this encounter Miscellaneous Notes Miscellaneous - Dewey Duong L.P.N. - 06/24/2016 4:04 PM CDT Adult Assistant Store Manager Trainee Intake/History Adult Assistant Store Manager Trainee Intake/History Entered On: 06/24/2016 16:08 CDT Performed [...] 06/24/2016 16:04 CDT General Info Languages : Maltese Is Patient Female and 13-50 no hysterectomy [...] DUONG LPN - 06/24/2016 16:04 CDT Source: [facility] POWERCHART Document Id: [id number] CDT!39 documented in this encounter Plan of Treatment Not on filedocumented as of this encounter Visit Diagnoses Not on filedocumented in this encounter
--- OUTSIDE RECORDS SUMMARY | 2022-06-02 15:04 | XMS_ITS | Encounter Summary ---
:1990 Author Organization [facility] Address [address] [place] [address] Care Team Providers Name Role Phone Elsewhere, Pcp Primary Care Provider Unavailable Reason for Visit Appointment Request (Routine) - Closed Specialty Diagnoses / Procedures Referred By Contact Refer red To Contact Family Medicine Referral ID Status Reason Start Date Expiration Date Visits Requ ested Visits Authorized [id number] Closed 05/31/2018 05/31/2019 1 Encounter Details Date Type Department Care Team Description 05/31/2018 Office Visit Department of Family José Scott, In grown Toenail MedicineTosha M.D. (Primary Dx) Clinic, in [address] [place] [phone] Social History Tobacco Use Types Packs/Day Years [...] Primary documented in this encounter Care Teams Delicate Fabrics Presser Relationship Specialty Start Date End Date Elsewhere, Pcp PCP - General Family Medicine 09/05/17 06/26/18 documented as of this encounter
--- OUTSIDE RECORDS SUMMARY | 2022-06-02 15:04 | XMS_ITS | Encounter Summary ---
:1990 Author Organization [facility] Address [address] [place] [address] Care Team Providers Name Role Phone Unavailable Primary Care Provider Unavailable Encounter Details Date Type Department Care Team Description 12/14/2016 Hospital Encounter [facility] Sandra Baer APRN, C.N.P., D. N.P. [address] [place] [phone] (Wo rk) Social History Tobacco Use [...] No itching. She reports trying Boil Ease xexa-wkd-ikbgbab, without any improvement of symptoms. She is [...] # 21 cap(s), 0 Refill(s), Acute, Pharmacy: [facility] Est Pt Level 3 - 20250 - 15 min 2. Tachycardia NOS Stable. [...] C.N.P., JameN.P On: 12/14/2016 01:49 PM Source: [facility] Document Id: [id number] documented in this encounter Miscellaneous Notes Telephone [...] From: SUZANNE BAER APRN, C.NAniaPAnia, D.N.P To: MD Family Medicine Nurse Mayra; Sent: 12/14/2016 14:42:25 CDT Subject: RE: *Phone Message Keflex suspension was sent to [address] 3x/day for 7 days. Thanks. Addendum by TAVIA SAL LPN on December 14, 2016 14:23:06 CDT From: TAVIA SAL LPN (MD Family Medicine Nurse Mayra) To: SUZANNE BAER APRN, C.N.P., D.N.P; Sent: 12/14/2016 14:23:06 CDT Subject: FW: *Phone Message Addendum by TAVIA SAL LPN on December 14, 2016 14:22:54 CDT please advise on change of medication. From: KENNETH BROWER To: MD Family Medicine Nurse Mayra; Sent: 12/14/2016 14:19:32 [...] (howto dispose of them properly.) Return number: [phone] Message: Advice/Action: Source used: ( ) Verbalizes [...] cell phone number ( ) Source: [facility] [employer] Document Id: [id number] Miscellaneous - Suzanne Baer APRN, C.N.P., D.N.P. - 12/14/2016 1:32 PM CDT Ambulatory Discharge Medication List [address] [id number] Visit Information Name: ARIS LEOS [facility] Number: [id number] Current Date: 12/14/2016 13:32:16 [...] x 7 day(s) cellulitis New Routed to [address] [place] [address] Stop Taking the Following Medications: Medication list [...] Signed On:14-DEC-2016 13:32:14 Additional Information: Source: [facility] POWERCHART Document Id: [id number] Miscellaneous - Suzanne Baer APRN, C.N.Jie., D.N.P. - 12/14/2016 1:32 PM CDT Ambulatory Patient Summary [address] [place] [id number] Visit Information Name: ARIS LEOS [facility] Number: [id number] Current Date: 12/14/2016 13:32:17 [...] x 7 day(s) cellulitis New Routed to [address] [address] Stop Taking the Following Medications: Medication list [...] if you dont have one. Go to [email or web address] and click on Create Your Account. Then, follow the directions to complete the online form. Youll be asked for your [facility] number which you can find at the top of this document. Your Goals/Additional instructions: Source: [facility] POWERCHART Document Id: [id number] Miscellaneous - Tavia Sal L.P.N. - 12/14/2016 1:14 PM CDT Adult Unload Associate Intake/History Adult Unload Associate Intake/History Entered On: 12/14/2016 13:18 CDT Performed [...] 12/14/2016 13:14 CDT General Info Languages : Martiniquais Is Patient Female and 13-50 no hysterectomy [...] SAL LPN - 12/14/2016 13:14 CDT Source: [employer] Document Id: [id number] CDT!44 documented in this encounter Plan of Treatment Not on filedocumented as of this encounter Visit Diagnoses Not on filedocumented in this encounter
--- OUTSIDE RECORDS SUMMARY | 2022-06-02 15:04 | XMS_ITS | Encounter Summary ---
:1990 Author Organization [facility] Address [address] [place] [address] Care Team Providers Name Role Phone Elsewhere, Pcp Primary Care Provider Unavailable Encounter Details Date Type Department Care Team Description 10/11/2017 Nurse Triage Department of Erica Zapata R.N. Medicine, [facility], in [place], [place] [address] [place] [address] Social History Tobacco Use Types Packs/Day Years Used Date Smoking Tobacco: Never Smokeless Tobacco: Never Sex Assigned at Date Recorded Not on file documented as of this encounter Miscellaneous Notes Telephone Encounter - Erica Huertas R.N. - 10/11/2017 1:27 PM CST Patient was provided aftercare instructions. RONMENTAL ENGINEERING AIDE documented in this encounter Plan of Treatment Not on filedocumented as of this encounter Visit Diagnoses Not on filedocumented in this encounter Care Teams Hospice Volunteer Coordinator Relationship Specialty Start Date End Date Elsewhere, Pcp PCP - General Family Medicine 09/05/17 06/26/18 documented as of this encounter
--- OUTSIDE RECORDS SUMMARY | 2022-06-02 15:04 | XMS_ITS | Encounter Summary ---
:1990 Author Organization [facility] Address [address] [place] [address] Care Team Providers Name Role Phone Judi Strickland APRN, C.N.P., D.N.P. Primary Care Provider Reason for Visit Reason Comments COVID Nurse Line Encounter Details Date Type Department Care Team Description 01/16/2020 Clinical Communication Central Appointment Line, Covid COVID Nurse Line Office in [facility] [address] [place] [address] Social History Tobacco Use Types [...] to be swabbed for COVID-19, sent to [place], [place] and Self-isolation, quarantine at home Care Points provided: Standard precautions for all patients: Wash hands often with soap and water for at least 20 seconds, especially after blowing your nose, coughing, sneezing, or having been in a public place. If soap and water aren't available, use a hand internal security manager that contains at least 60% alcohol. Avoid [...] essential items or medical care). Educational Resource: https://www.cdc.gov/coronavirus/2019-ncov/igxobos-guspvuu-ieag/index.html Recommendations as testing criteria is met: Stay [...] if any new orworsening symptoms. Education Resources: https://www.cdc.gov/coronavirus/2019-ncov/tv-iro-jvk-sick/st xou-yuji-qtfs.html Education: patient/caregiver Patient/caregiver able to teach back Patient agreeable to plan of care: Yes The following references were used: [facility] novel coronavirus (COVID- 19) resources CDC web site https://www.cdc.gov/coronavirus/2019-ncov/summary.html [facility] ([facility]) Guidelines for self-isolation Nursing judgement documented in this encounter Plan of Treatment Not on filedocumented as of this encounter Visit Diagnoses Not on filedocumented in this encounter Care Teams Production Welder Relationship Specialty Start Date End Date Judi Strickland APRN, C.N.P., D.N.P. PCP - General 07/25/[address] [place] [phone] documented as of this encounter
--- OUTSIDE RECORDS SUMMARY | 2022-06-02 15:04 | XMS_ITS | Encounter Summary ---
:1990 Author Organization [facility] Address [address] [place] [address] Care Team Providers Name Role Phone Judi Strickland APRN, C.N.P., D.N.P. Primary Care Provider Encounter Details Date Type Department Care Team Description 06/08/2021 Orders Only [facility] PCP [facility] Judi Strickland APRN, C.N.P., D.N.P. [address] [place] [address] [place] [phone] (Wo rk) Social History Tobacco Use Types Packs/Day Years Used Date Smoking Tobacco: Never Smokeless Tobacco: Never Sex Assigned at Date Recorded Not on file documented as of this encounter Plan of Treatment Not on filedocumented as of this encounter Visit Diagnoses Not on filedocumented in this encounter Care Teams Hand Cigar Maker Relationship Specialty Start Date End Date Judi Strikcland APRN, C.N.P., D.N.P. PCP - General 07/25/[phone] [place] [phone] documented as of this encounter
--- OUTSIDE RECORDS SUMMARY | 2022-06-02 15:04 | XMS_ITS | Encounter Summary ---
:1990 Author Organization [facility] Address [address] [place] [address] Care Team Providers Name Role Phone Judi Strickland APRN, C.N.P., D.N.P. Primary Care Provider Encounter Details Date Type Department Care Team Description 01/19/2021 Orders Only [facility] PCP [facility] Sa marshall Givens M.D. [address] [place], [place] [phone] (Wo rk) Social History Tobacco Use Types Packs/Day Years Used Date Smoking Tobacco: Never Smokeless Tobacco: Never Sex Assigned at Date Recorded Not on file documented as of this encounter Plan of Treatment Not on filedocumented as of this encounter Visit Diagnoses Not on filedocumented in this encounter Care Teams Video Production Coordinator Relationship Specialty Start Date End Date Judi Strickland APRN, C.N.P., D.N.P. PCP - General 07/25/[address] [place] [address] EMILIANO Madrigal [phone] documented as of this encounter
--- OUTSIDE RECORDS SUMMARY | 2022-06-02 15:04 | XMS_ITS | Encounter Summary ---
:[address] [facility] Address [address] [place] [address] Care Team Providers Name Role Phone Judi Strickland APRN, C.N.P., D.N.P. Primary Care Provider Encounter Details Date Type Department Care Team Description 11/10/2021 Admin Visit Department of Family Judi Strickland AP RN, Medicine, [facility], C.N.P ., D.N.P. in [address] [phone] (Wo rk) Social History Tobacco Use Types [...] COVID19 Pending 11/09/2021 11/10/2021 11/11/2021 7:23 AM LAP HAND TOOL documented as of this encounter Care Teams Insurance Examiner Relationship Specialty Start Date End Date Judi Strickland APRN, C.N.P., D.N.P. PCP - General 07/25/[address] [place] [phone] documented as of this encounter
--- OUTSIDE RECORDS SUMMARY | 2022-06-02 15:04 | XMS_ITS | Encounter Summary ---
:1990 Author Organization [facility] Address [address] [place] [address] Care Team Providers Name Role Phone Judi Strickland APRN, C.N.P., D.N.P. Primary Care Provider Reason for Referral Outpatient (Routine) - Closed Specialty Diagnoses / Procedures Referred By Contact Refer red To Contact Family Medicine Judi Strickland APRN, [facility] C.N.P., D.N.P. [address] [place] [address] [place] [address] Referral ID Status Reason Start Date Expiration Date Visits Requ ested Visits Authorized [id number] Closed 03/19/2020 03/19/2021 1 1 Encounter Details Date Type Department Care Team Description 03/19/2020 Orders Only [facility] Judi Strickland APRN, C.N.P., D.N.P. [address] [place] [phone] (Wo rk) Social History Tobacco Use Types Packs/Day Years Used Date Smoking Tobacco: Never Smokeless Tobacco: Never Sex Assigned at Date Recorded Not on file documented as of this encounter Plan of Treatment Scheduled Referrals Name Type Priority Associated Diagnoses Order S [facility] Family Medicine Outpatient Referral Routine Expec jacob: office visit 04/02/2020, (clinic) Expires: 03/19/2023 documented as of this encounter Visit Diagnoses Not on filedocumented in this encounter Care Teams Radiology Manager Relationship Specialty Start Date End Date Judi Strickland APRN, C.N.P., D.N.P. PCP - General 07/25/[phone] [phone] documented as of this encounter
--- OUTSIDE RECORDS SUMMARY | 2022-06-02 15:04 | XMS_ITS | Encounter Summary ---
:1990 Author Organization [facility] Address [address] [place] [address] Care Team Providers Name Role Phone Elsewhere, Pcp Primary Care Provider Unavailable Encounter Details Date Type Department Care Team Description 10/12/2017 Hospital Encounter [facility] in [place], [place] C.N.P., D.N.P. [address] [facility] [address] [place] [phone] Social History Tobacco Use Types Packs/Day Years [...] this OR BILIARY DUCTS (most inpatients AM SEAL MIXING OPERATOR Quadrant procedu re are in and all the results outpatients) section. documented in this encounter Results US Gallbladder (10/12/2017 9:15 AM SEAL MIXING OPERATOR) Anatomical Region Laterality Modality Abdomen N/A Ultrasound Specimen (Source) Anatomical Collection Method Collection Time Re ceived Time Location / / Volume Laterality 10/12/2017 9:25 AM SEAL MIXING OPERATOR Impressions 10/12/2017 9:25 AM SEAL MIXING OPERATOR IMPRESSION: Normal gallbladder ultrasoun d. Narrative 10/12/2017 9:25 AM SEAL MIXING OPERATOR EXAM: US GALLBLADDER COMPARISON: None FINDINGS: [...] Quadrant documented in this encounter Care Teams Laborer Livestock Relationship Specialty Start Date End Date Elsewhere, Pcp PCP - General Family Medicine 09/05/17 06/26/18 documented as of this encounter
--- OUTSIDE RECORDS SUMMARY | 2022-06-02 15:04 | XMS_ITS | Encounter Summary ---
:1990 Author Organization [facility] Address [address] [place] [address] Care Team Providers Name Role Phone Unavailable Primary Care Provider Unavailable Encounter Details Date Type Department Care Team Description 04/01/2015 Hospital Encounter [facility] Anne-Marie Ricardo APRN, C.N.P., D. N.P. [address] [place] [phone] (Wo rk) Social History Tobacco Use [...] APRN, C.N.P. - 04/01/2015 12:25 PM CDT [id number] CHIEF COMPLAINT/REASON FOR VISIT Cough. HISTORY OF [...] GarciaNAniaPAnia/radha Electronically Signed By: ANNE-MARIE RICARDO RN, MACHINE SET UP On: 04/08/2015 08:24 AM Source: [facility] MHSDOLBEYNED Document Id: [id number] documented in this encounter Miscellaneous Notes Miscellaneous - Anne-Marie Ricardo APRN, C.N.P. - 04/01/2015 12:56 PM CDT Ambulatory Patient Summary [address] [facility] [place] [id number] Visit Information Name: ARIS LEOS [facility] Number: [id number] Current Date: 04/01/2015 12:56:08 Physicians Attending Provider: ANNE-MARIE RICARDO RN, THERESA Primary Care Provider: ANNE-MARIE RICARDO RN, MACHINE SET UP ARIS LEOS has been given the following [...] day x 14 day(s) New Routed to [address] [place] [address] fexofenadine-pseudoephedrine (Keyla-D 12 Hour 60 mg-120 mg [...] online form. Youll be asked for your [facility] number which you can find at the top of this document. Your Goals/Additional instructions: Source: [facility] POWERCHART Document Id: [id number] Miscellaneous - Anne-Marie Ricardo APRN, C.N.P. - 04/01/2015 12:56 PM CDT Ambulatory Discharge Medication List [address] [id number] Visit Information Name: SANDRA LEOSLEY LELIA [facility] Number: [id number] Visit Date: 04/01/2015 12:56:07 Attending Provider: ANNE-MARIE RICARDO RN, MACHINE SET UP Primary Care Provider: ANNE-MARIE RICARDO RN, MACHINE SET UP DAFNEARIS has been given the following list [...] day x 14 day(s) [facility] [address] [address] fexofenadine-pseudoephedrine (Keyla-D 12 Hour 60 mg-120 mg [...] emergency. Electronically Signed By: ANNE-MARIE RICARDO RN, MACHINE SET UP Signed On:01-APR-2015 12:56:03 Additional Information: Source: [facility] POWERCHART Document Id: [id number] Miscellaneous - Dewey Duong LAniaPAniaNAnia - 04/01/2015 12:31 PM CDT Adult Transfill Technician Intake/History Adult Transfill Technician Intake/History Entered On: 04/01/2015 12:33 CDT Performed [...] 04/01/2015 12:31 CDT General Info Languages : Fijian Is Patient Female and 13-50 no hysterectomy [...] - 04/01/2015 12:31 CDT [facility] Document Id: [id number] CDT!13 documented in this encounter Plan of Treatment Not on filedocumented as of this encounter Visit Diagnoses Not on filedocumented in this encounter
--- OUTSIDE RECORDS SUMMARY | 2022-06-02 15:04 | XMS_ITS | Encounter Summary ---
:1990 Author Organization [facility] Address [address] [place] [address] Care Team Providers Name Role Phone Elsewhere, Pcp Primary Care Provider Unavailable Encounter Details Date Type Department Care Team Description 09/12/2017 Abstract Department of Family Medicine, Provider, Historical [facility], in [place], [place] [address] [phone] [facility] [phone] Social History Tobacco Use Types Packs/Day Years Used Date Smoking Tobacco: Never Sex Assigned at Date Recorded Not on file documented as of this encounter Plan of Treatment Not on filedocumented as of this encounter Visit Diagnoses Not on filedocumented in this encounter Care Teams Clinical Data Associate Relationship Specialty Start Date End Date Elsewhere, Pcp PCP - General Family Medicine 09/05/17 06/26/18 documented as of this encounter
--- OUTSIDE RECORDS SUMMARY | 2022-06-02 15:04 | XMS_ITS | Encounter Summary ---
:1990 Author Organization [facility] [place] Address [address] [place] [address] Care Team Providers Name Role Phone Unavailable Primary Care Provider Unavailable Encounter Details Date Type Department Care Team Description 09/20/2015 Hospital Encounter HX NO MAPPING Jovi Alvarado P.A.-C., M.S. [address] [place], [place] [phone] (Wo rk) Social History Tobacco Use Types Packs/Day Years Used Date Smoking Tobacco: Never Assessed Sex Assigned at Date Recorded Not on file documented as of this encounter Last Filed Vital Signs Vital Sign Reading Time Taken Comments Blood Pressure 124/75 09/20/2015 3:00 PM INVENTORY TECHNICIAN Pulse 104 09/20/2015 3:00 PM INVENTORY TECHNICIAN Temperature - - Respiratory Rate - - Oxygen Saturation - - Inhaled Oxygen Concentration - - Weight - - Height 166 cm (5' 5.35) 09/20/2015 3:00 PM INVENTORY TECHNICIAN Body Mass Index - - documented in this encounter Discharge Summaries Suzanne Riley, L.P.N. - 09/20/2015 3:26 PM CST ED Discharge Instructions [facility] [address] [place] [address]. [place] [address] Name: ARIS FELIX Date of : 1990 12:00 AM Visit Date: 09/20/2015 2:21 PM [facility] [place] Number: [id number] Address: [address] [facility] [address] Primary Care Provider: NICOLE SANTANA MD IMPORTANT: [facility] in [place] would like to thank you for allowing us to assist you with your healthcare needs. The following includes patient education materials and information regarding your injury/illness. Diagnosis: Bronchitis Acute; Sinusitis Acute NOS Follow-Up Instructions: With: Address: When: NICOLE MATTHEWPOOJADAVID [address] [place] [address] Business (1) Within As Needed Your Upcoming [...] will help loosen secretions in the lungs. Uzuu-fiu-uprmoml cough medicines that contain dextromethorphan (such as [...] ear pain or a stiff neck ?? [phone] [facility], [address] [place] [address]. All rights reserved. This information is not [...] you dont have one. Go to [email or web address] and click on Create Your Account. Then, follow the directions to complete the online form. Youll be asked for your [facility] [place] number which you can find [...] arrange a ride home with a responsible libertarian. DAFNE Barroso HAYLEY ANNE , or responsible libertarian have received this information and my questions [...] arrange a ride home with a responsible libertarian. DAFNE Barroso HAYLEY ANNE or responsible libertarian have received this information and my questions have been answered. I have discussed any challenges I see with this plan with the nurse or physician. Patient Signature or Responsible Republican/Relationship Date Time Provider Signature Date Time This document has images extracted. Please consider using [employer] for all your patient education needs. Source: [facility] POWERCHART Document Id: [id number] NTORY TECHNICIAN Suzanne Riley L.P.N. - 09/20/2015 3:26 PM CST ED Depart Summary [facility] Emergency Department Clinical Discharge Summary PERSON INFORMATION Name ARIS FELIX Age 24 Years 1990 12:00 AM Sex Female Language German PCP NICOLE SANTANA MD Marital Status Single N [id number] Visit Id Visit Reason UC - Cough; cough Specialty Enc Type [facility] Outpatient Med Service Urgent Care Referred by Track Group [facility] ED Discharge 09/20/2015 3:25 PM Tracking Id [id number] Checkout 09/20/2015 3:25 PM Checkin 09/20/2015 2:21 PM Acuity 4 -Less Urgent Dispo Type * Discharged to Home or Self Care Arrival 09/20/2015 2:21 PM Reg Status Complete LOS 000 01:04 Address: [address] [facility] [address] Comment: PROVIDER INFORMATION Provider Role Provider Contact Time AGNES GARCIA LPN ED Nurse 09/20/15 14:59 JOVI ALVARADO PA-C ED Provider 09/20/15 15:16 DIAGNOSIS Bronchitis Acute; Sinusitis Acute NOS Comment: PATIENT EDUCATION INFORMATION Instructions: BRONCHITIS, Abx Tx (Adult) Follow up: With: Address: When: NICOLE SANTANA [address] [place] [address] [phone] Business (1) Within As Needed Source: [facility] POWERCHART Document Id: [id number] NTORY TECHNICIAN documented in this encounter Progress Notes Jovi Alvarado P.A.-C., M.S. - 09/20/2015 2:21 PM CST [id number] CHIEF COMPLAINT/REASON FOR VISIT Cough. HISTORY OF [...] ALVARADO PA-C On: 09/27/2015 04:24 PM Source: [facility] MHSDOLBEYNONRADSYS Document Id: [id number] NTORY TECHNICIAN documented in this encounter H&P Notes Agnes Garcia R.N. - 09/20/2015 3:00 PM CST Urgent Care Intake Urgent Care Intake Entered On: 09/20/2015 15:02 INVENTORY TECHNICIAN Performed On: 09/20/2015 15:00 INVENTORY TECHNICIAN by AGNES GARCIA LPN Intake Chief Complaint [...] inch(es)) AGNES GARCIA LPN - 09/20/2015 15:00 INVENTORY TECHNICIAN General Info Information Given By : Patient Languages : German Is Patient Female and 13-50 no hysterectomy : Yes Status : Patient denies Are you ? : No AGNES GARCIA LPN - 09/20/2015 15:00 INVENTORY TECHNICIAN Subjective Pain Symptoms : No AGNES GARCIA LPN - 09/20/2015 15:00 INVENTORY TECHNICIAN Dependent Habits Exposure to Tobacco Smoke : Care provider denies smoking in home Smoking Status : Current some day smoker Tobacco 2A : Yes Tobacco Use/Currently Using : Yes Tobacco Use/Last 30 Days : Yes Tobacco Use/Last 12 months : Yes Type : Cigarettes: Less than 20 per day Tobacco Use/Advised to Quit : No AGNES GARCIA LPN - 09/20/2015 15:00 INVENTORY TECHNICIAN Caffeine Use Grid Caffeine Use : None Last Use : 09-20-13 AGNES GARCIA LPN - 09/20/2015 15:00 INVENTORY TECHNICIAN Recreational Drug Use Grid Drug Use : None AGNES GARCIA LPN - 09/20/2015 15:00 INVENTORY TECHNICIAN Nutrition Nutrition Risk Factors by History Adult : None AGNES GARCIA LPN - 09/20/2015 15:00 INVENTORY TECHNICIAN Functional Current Daily Living Assistance : None AGNES GARCIA LPN - 09/20/2015 15:00 INVENTORY TECHNICIAN Psychosocial Domestic Abuse Concerns : None Behavioral Health Screen/Safety Assmt : No Protestant Preference : No qualifying data available. AGNES GARCIA SENIOR IT ENGINEER - 09/20/2015 15:00 INVENTORY TECHNICIAN Advance Directive Advanced Directives : No Advance Directive Additional Information : No AGNES GARCIA ARPAN - 09/20/2015 15:00 INVENTORY TECHNICIAN Educ Needs Learning Style Preference Adult Grid Patient : None Family : None AGNES GARCIA ARPAN - 09/20/2015 15:00 INVENTORY TECHNICIAN Source: [facility] Preventes.frCHART Document Id: [id number] INVENTORY TECHNICIAN!51 NTORY TECHNICIAN documented in this encounter ED Notes Suzanne Riley L.P.N. - 09/20/2015 3:22 PM CST ED Disposition Summary ED Disposition Summary Entered On: 09/20/2015 15:23 INVENTORY TECHNICIAN Performed On: 09/20/2015 15:22 INVENTORY TECHNICIAN by SUZANNE RILEY LPN ED Disposition Summary Printed Discharge Instructions Given to Patient : Yes SUZANNE RILEY LPN - 09/20/2015 15:22 INVENTORY TECHNICIAN Source: [facility] Preventes.frCHART Document Id: [id number] INVENTORY TECHNICIAN!3 NTORY TECHNICIAN Lelia Garcia R.N. - 09/20/2015 2:21 PM CST ED Triage Assessment Document Has Been Updated ED Triage Assessment Entered On: 09/20/2015 14:22 INVENTORY TECHNICIAN Performed On: 09/20/2015 14:21 INVENTORY TECHNICIAN by LELIA GARCIA RN Reason For Visit (As Of: 09/20/2015 14:22:43 INVENTORY TECHNICIAN) Problems(Active) Cough Bronchospastic (ICD-9-CM :519.11 ) Name of Problem: Cough Bronchospastic ; Onset Date: 04/01/2015 ; Recorder: OFELIA RICARDO RN, THERESA; Confirmation: Confirmed ; Classification: Medical ; Code: 519.11 ; Contributor System: PowerChart ; Last Updated: 04/15/2015 7:28 CDT ; Life Cycle Status: Active ; Responsible Provider: OFELIA RICARDO RN, THERESA; Vocabulary: ICD-9-CM Iron deficiency anemia (SNOMED CT :197715012 ) Name of Problem: Iron deficiency anemia ; Onset Date:06/28/2010 ; Recorder: BRENNA CRAIG DNP, FNP; Confirmation: Confirmed ; Classification: Medical ; Code: 847139275 ; Contributor System: TV4 EntertainmentChart ; Last Updated: 02/15/2011 11:49 CDT ; [...] PNED ; Probability: 0 ; Diagnosis Code: [id number] Triage Chief Complaint Description : cough, productive, for about 2 weeks. Cough is worse at night. OTC meds not working Information Given By : Patient Accompanied By : Alone Mode of Arrival ED : Private vehicle Track : Medical Languages : German Patient Informed of Triage Location : Urgent Care Treatments Prior to Arrival : Home treatments Are you ? : No Is Patient Female and 13-50 no hysterectomy : Yes Status : Patient denies LELIA GARCIA RN - 09/20/2015 14:21 INVENTORY TECHNICIAN Pain Assessment Pain Symptoms : No LELIA GARCIA RN - 09/20/2015 14:21 INVENTORY TECHNICIAN CHARANJIT DCP GENERIC CODE Tracking Acuity : 4 -Less Urgent Tracking Group : RW ED LELIA GARCIA RN - 09/20/2015 14:21 INVENTORY TECHNICIAN Source: [facility] PingMD Document Id: [id number] INVENTORY TECHNICIAN!19 NTORY TECHNICIAN documented in this encounter Plan of Treatment Not on filedocumented as of this encounter Visit Diagnoses Not on filedocumented in this encounter
--- OUTSIDE RECORDS SUMMARY | 2022-06-02 15:05 | XMS_ITS | Encounter Summary ---
:1990 Author Organization [facility] Address [address] [place] [address] Care Team Providers Name Role Phone Unavailable Primary Care Provider Unavailable Encounter Details Date Type Department Care Team Description 07/16/2010 Hospital Encounter [facility]X [facility] INPT/OBSRV Akhil Sargent Jr., M.D. [address] [place], [place] [address] (Wo rk) Social History Tobacco Use Types Packs/Day Years Used Date Smoking Tobacco: Never Assessed Sex Assigned at Date Recorded Not on file documented as of this encounter Plan of Treatment Not on filedocumented as of this encounter Visit Diagnoses Not on filedocumented in this encounter
--- OUTSIDE RECORDS SUMMARY | 2022-06-02 15:05 | XMS_ITS | Encounter Summary ---
:1990 Author Organization [facility] Address [address] [place] [address] Care Team Providers Name Role Phone Unavailable Primary Care Provider Unavailable Encounter Details Date Type Department Care Team Description 01/20/2011 Hospital Encounter [facility]X [facility] Brenna Craig, GRIS, Zulema.N.P., D. N.P. [address] [place] [address] (Wo rk) Social History Tobacco Use Types Packs/Day Years Used Date Smoking Tobacco: Never Assessed Sex Assigned at Date Recorded Not on file documented as of this encounter Progress Notes Brenna Craig, D.N.P., C.N.P. - 01/20/2011 12:00 AM CDT [id number] CHIEF COMPLAINT/REASON FOR VISIT Headache. HISTORY OF [...] reports that she has not used anything qsns-hrq-vfaguct to help with her symptoms of discomfort [...] equal, round and reactive to light.. OROPHARYNX: [place] and moist. TMs: Bilateral tympanic membranes are [...] fluid intake and take ibuprofen over the vbzo-rwt-hyozgsw as directed on package to help with [...] CRAIG DNP, FNP On: 01/20/2011 08:07 Source: [facility] Document Id: [id number] documented in this encounter Miscellaneous Notes Miscellaneous - Brenna Craig D.N.P., C.N.P. - 01/20/2011 5:45 PM CDT Ambulatory Patient Summary [address] [address] Visit Information Name: ARIS LEOS Current Date: 01/20/2011 17:45:32 Primary Care Provider: OFELIA RICARDO RN, COMMUNITY OUTREACH WORKER Your Medications Here is a list of [...] No Appointments found Your Goals/Additional instructions: Source: [facility] POWERCHART Document Id: [id number] Electronically signed by Anastacia [facility] Filler Leaf Cutter Long [id number] at 03/05/2017 10:49 AM CDT Miscellaneous - Brenna Craig, Bonnie.N.P., C.N.P. - 01/20/2011 5:45 PM CDT Ambulatory Depart Summary [facility] - [address] [address] Visit Information Name: ARIS LEOS Current Date: 01/20/2011 17:45:32 Primary Care Provider: OFELIA RICARDO RN, COMMUNITY OUTREACH WORKER ARIS LEOS has been given the following [...] to the patient and/or family, guardian/caregiver. Source: [facility] Drop DevelopmentCHART Document Id: [id number] Shashank - Betsy Chong L.P.N. - 01/20/2011 [...] CHONG LPN - 01/20/2011 15:39 CDT Source: [facility] [employer] Document Id: [id number] CDT!31 Miscellphilippe - Betsy Chong L.P.N. - 01/20/2011 3:33 PM CDT Adult [employer] Functional Analyst Intake/History Adult [employer] Functional Analyst Intake/History Entered On: 01/20/2011 15:39 CDT Performed [...] LPN; Reviewed Date: 01/20/2011 15:33 CDT Source: [facility] [employer] Document Id: [id number] CDT!44 documented in this encounter Plan of Treatment Not on filedocumented as of this encounter Visit Diagnoses Not on filedocumented in this encounter
--- OUTSIDE RECORDS SUMMARY | 2022-06-02 15:05 | XMS_ITS | Encounter Summary ---
:1990 Author Organization [facility] Address [address] [place] [address] Care Team Providers Name Role Phone Unavailable Primary Care Provider Unavailable Encounter Details Date Type Department Care Team Description 08/09/2011 Hospital Encounter [facility]X [facility] [place] Anne-Marie Roland, GRIS, C.N.P., D. N.P. [address] [place] [address] (Wo rk) Social History Tobacco Use Types Packs/Day Years Used Date Smoking Tobacco: Never Assessed Sex Assigned at Date Recorded Not on file documented as of this encounter Procedure Notes Cathleen Massey, L.P.N. - 08/09/2011 3:50 PM CST Depo-Provera Administration Depo-Provera Administration Entered On: 08/09/2011 15:50 HVAC SERVICE TECHNICIAN Performed On: 08/09/2011 15:50 HVAC SERVICE TECHNICIAN by CATHLEEN MASSEY LPN Depo-Provera Administration Annual Exam in the Past 12 Months : Yes Last Depo-Provera Given : 05/10/2011 CDT Needs test : No CATHLEEN MASSEY LPN - 08/09/2011 15:50 HVAC SERVICE TECHNICIAN Source: [facility] POWERCHART Document Id: [id number] HVAC SERVICE TECHNICIAN!5 SERVICE TECHNICIAN documented in this encounter Plan of Treatment Not on filedocumented as of this encounter Visit Diagnoses Not on filedocumented in this encounter
--- OUTSIDE RECORDS SUMMARY | 2022-06-02 15:05 | XMS_ITS | Encounter Summary ---
:1990 Author Organization [facility] Address [address] [place] [address] Care Team Providers Name Role Phone Unavailable Primary Care Provider Unavailable Encounter Details Date Type Department Care Team Description 02/15/2011 Hospital Encounter [facility] Brenna Craig, GRIS, Zulema.N.P., D. N.P. [address] [place] [address] (Wo rk) Social History Tobacco Use Types Packs/Day Years Used Date Smoking Tobacco: Never Assessed Sex Assigned at Date Recorded Not on file documented as of this encounter Progress Notes Brenna Craig, D.N.P., C.N.P. - 02/15/2011 12:00 AM CDT [id number] CHIEF COMPLAINT/REASON FOR VISIT Nausea and diarrhea. [...] that she has not been taking any kdfr-knz-fbyjjad medications to help with her symptoms and [...] equal, round and reactive to light.. OROPHARYNX: [place] and moist. TMs: Bilateral tympanic membranes are [...] DNP, FNP On: 02/15/2011 04:43 PM Source: [facility] Document Id: [id number] documented in this encounter Miscellaneous Notes Miscellaneous - Brenna Craig D.N.P., C.N.P. - 02/15/2011 11:52 AM CDT Ambulatory Patient Summary [facility] - [address] [address] Visit Information Name: ARIS LEOS Current Date: 02/15/2011 11:51:57 Primary Care Provider: OFELIA RICARDO RN, SENIOR CLINICAL RESEARCH ASSOCIATE Your Medications Here is a list of [...] No Appointments found Your Goals/Additional instructions: Source: [employer] Document Id: [id number] Miscellaneous - Brenan Craig D.N.Jie., C.N.P. - 02/15/2011 11:51 AM CDT Ambulatory Depart Summary [facility] - [address] [address] Visit Information Name: ARIS LEOS Current Date: 02/15/2011 11:51:57 Primary Care Provider: OFELIA RICARDO RN, SENIOR CLINICAL RESEARCH ASSOCIATE ARIS LEOS LELIA has been given the [...] to the patient and/or family, guardian/caregiver. Source: [employer] Document Id: [id number] Miscellaneous - Anastacia, Historical Provider Ser - 02/15/2011 11:05 AM CDT Pediatric Vice President Of Advertising Intake/History Pediatric Vice President Of Advertising Intake/History Entered On: 02/15/2011 11:08 CDT Performed [...] LPN; Reviewed Date: 02/15/2011 11:04 CDT Source: [facility] [employer] Document Id: [id number] CDT!36 documented in this encounter Plan of Treatment Not on filedocumented as of this encounter Visit Diagnoses Not on filedocumented in this encounter
--- OUTSIDE RECORDS SUMMARY | 2022-06-02 15:05 | XMS_ITS | Encounter Summary ---
:1990 Author Organization [facility] Address [address] [place] [address] Care Team Providers Name Role Phone Unavailable Primary Care Provider Unavailable Encounter Details Date Type Department Care Team Description 01/27/2011 Hospital Encounter [facility]X [facility] Deedee Bobby, GRIS, C.N.P., D.N.P. [address] [place], [place] [phone] (Wo rk) Social History Tobacco Use Types Packs/Day Years Used Date Smoking Tobacco: Never Assessed Sex Assigned at Date Recorded Not on file documented as of this encounter Plan of Treatment Not on filedocumented as of this encounter Visit Diagnoses Not on filedocumented in this encounter
--- OUTSIDE RECORDS SUMMARY | 2022-06-02 15:05 | XMS_ITS | Encounter Summary ---
:1990 Author Organization [facility] Address [address] [place] [address] Care Team Providers Name Role Phone Unavailable Primary Care Provider Unavailable Encounter Details Date Type Department Care Team Description 12/30/2011 Hospital Encounter [facility] [place] Carol Mendes M.D. Social History Tobacco Use Types Packs/Day Years Used Date Smoking Tobacco: Never Assessed Sex Assigned at Date Recorded Not on file documented as of this encounter Plan of Treatment Not on filedocumented as of this encounter Visit Diagnoses Not on filedocumented in this encounter
--- OUTSIDE RECORDS SUMMARY | 2022-06-02 15:05 | XMS_ITS | Encounter Summary ---
:1990 Author Organization [facility] Address [address] [place] [address] Care Team Providers Name Role Phone Unavailable Primary Care Provider Unavailable Encounter Details Date Type Department Care Team Description 09/18/2012 Hospital Encounter HX [facility] [place] Brenna Craig, GRIS, Zulema.N.P., D. N.P. [address] [place] [address] (Wo rk) Social History Tobacco Use Types Packs/Day Years Used Date Smoking Tobacco: Never Assessed Sex Assigned at Date Recorded Not on file documented as of this encounter Last Filed Vital Signs Vital Sign Reading Time Taken Comments Blood Pressure 116/68 09/18/2012 1:55 PM DEVELOPMENT AND HOUSING DIRECTOR Pulse 88 09/18/2012 1:55 PM DEVELOPMENT AND HOUSING DIRECTOR Temperature - - Respiratory Rate 18 09/18/2012 1:55 PM DEVELOPMENT AND HOUSING DIRECTOR Oxygen Saturation - - Inhaled Oxygen Concentration - - Weight 82.7 kg (182 lb 5.1 oz) 09/18/2012 1:55 PM DEVELOPMENT AND HOUSING DIRECTOR Height - - Body Mass Index 29.3 05/09/2012 12:45 PM CDT documented in this encounter Progress Notes Brenna Craig, D.N.P., C.N.P. 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 She otherwise denies having any other further concerns or issues. She denies having any nausea or vomiting, shortness of breath, or difficulty breathing and reports that she has not had any changes in urination or bowel habits. She does report that she has been using sfao-jwq-uenwune Tylenol to help with the symptoms with minimal symptom improvement. PAST MEDICAL/SURGICAL HISTORY Reviewed. Please see chart. FAMILY HISTORY Reviewed. Please see chart. CURRENT MEDICATIONS Reviewed. Please see chart. ALLERGIES Reviewed. Please see chart. PHYSICAL EXAMINATION OBJECTIVE: Patient is alert/oriented x 3. HEAD: Normocephalic/atraumatic. PUPILS: HARITHA. OROPHARYNX: [place] and moist. TMs: Bilateral TMs are clear, [...] will also plan on contacting her at [phone] regarding her urine gonorrhea and chlamydia results [...] DNP, FNP On: 09/20/2012 09:55 AM Source: [facility] MHSDOLBEYNONRADSYS Document Id: [id number] LOPMENT AND HOUSING DIRECTOR documented in this encounter Miscellaneous Notes Miscellaneous - Brenna Craig D.N.P., C.N.P. - 09/18/2012 2:56 PM DEVELOPMENT AND HOUSING DIRECTOR Ambulatory Patient Summary [address] [address] Visit Information Name: ARIS LEOS [facility] Number: [id number] Current Date: 09/18/2012 14:56:37 Physicians Attending Provider: BRENNA CRAIG DNP, FNP Primary Care Provider: OFELIA RICARDO RN, MANAGER STATISTICAL PROGRAMMING Your Medications Here is a list of [...] No Appointments found Your Goals/Additional instructions: Source: [facility] POWERCHART Document Id: [id number] LOPMENT AND HOUSING DIRECTOR Miscellaneous - Brenna Craig D.N.P., C.N.P. - 09/18/2012 2:56 PM DEVELOPMENT AND HOUSING DIRECTOR Ambulatory Depart Summary [address] [address] Visit Information Name: ARIS LEOS [facility] Number: [id number] Visit Date: 09/18/2012 14:56:36 Attending Provider: BRENNA CRAIG DNP, SYSTEMS INTEGRATOR Primary Care Provider: OFELIA RICARDO RN, MANAGER STATISTICAL PROGRAMMING ARIS LEOS has been given the following [...] your provider for clarification. Additional Information: Source: [facility] POWERCHART Document Id: [id number] LOPMENT AND HOUSING DIRECTOR Miscellaneous - Darius Sandoval, L.P.N. - 09/18/2012 1:55 PM CST Adult Braille Translator Intake/History Adult Braille Translator Intake/History Entered On: 09/18/2012 14:00 DEVELOPMENT AND HOUSING DIRECTOR Performed On: 09/18/2012 13:55 DEVELOPMENT AND HOUSING DIRECTOR by DARIUS SANDOVAL LPN Intake Chief Complaint [...] 82.70kg DARIUS SANDOVAL LPN - 09/18/2012 13:55 DEVELOPMENT AND HOUSING DIRECTOR Subjective Pain Symptoms : No DARIUS SANDOVAL LPN - 09/18/2012 13:55 DEVELOPMENT AND HOUSING DIRECTOR Dependent Habits Tobacco Use/Currently Using : Yes Exposure to Tobacco Smoke : Patient smokes Smoking Status : Current every day smoker DARIUS SANDOVAL LPN - 09/18/2012 13:55 DEVELOPMENT AND HOUSING DIRECTOR Tobacco Use Grid Type : Cigarettes Cigarette Use Packs/Day : 0.5 Last Use : 10 min ago DARIUS SANDOVAL LPN - 09/18/2012 13:55 DEVELOPMENT AND HOUSING DIRECTOR Alcohol Use : No DARIUS SANDOVAL LPN - 09/18/2012 13:55 DEVELOPMENT AND HOUSING DIRECTOR Caffeine Use Grid Caffeine Use : Current Type : Soft drinks Frequency : Weekly Amount : 2 cans Last Use : 11am DARIUS SANDOVAL LPN - 09/18/2012 13:55 DEVELOPMENT AND HOUSING DIRECTOR Recreational Drug Use Grid Drug Use : None DARIUS SANDOVAL LPN - 09/18/2012 13:55 DEVELOPMENT AND HOUSING DIRECTOR Allergy Allergies (Active) NKA Estimated Onset Date: Unspecified ; Created By: CATHLEEN KURTZ LPN; Reaction Status: Active ;Category: Drug ; Substance: NKA ; Type: Allergy ; Updated By: CATHLEEN KURTZ LPN; Reviewed Date: 09/18/2012 13:48 DEVELOPMENT AND HOUSING DIRECTOR Source: [facility] [employer] Document Id: [id number] LOPMENT AND HOUSING DIRECTOR Miscellaneous - Darius Sandoval, L.P.N. - 09/18/2012 1:55 PM CST Health Assessment Health Assessment Entered On: 09/18/2012 14:00 DEVELOPMENT AND HOUSING DIRECTOR Performed On: 09/18/2012 13:55 DEVELOPMENT AND HOUSING DIRECTOR by DARIUS SANDOVAL LPN Health Assessment Complete Health Assessment Complete or Modified : Annual Health Assessment Annual Health Assessment Completed : Yes DARIUS SANDOVAL LPN - 09/18/2012 13:55 DEVELOPMENT AND HOUSING DIRECTOR Nutrition Nutrition Risk Factors by History Adult : None DARIUS SANDOVAL LPN - 09/18/2012 13:55 DEVELOPMENT AND HOUSING DIRECTOR Functional Current Daily Living Assistance : None DARIUS SANDOVAL LPN - 09/18/2012 13:55 DEVELOPMENT AND HOUSING DIRECTOR Dependent Habits Tobacco Use/Currently Using : Yes Exposure to Tobacco Smoke : Patient smokes Smoking Status : Current every day smoker DARIUS SANDOVAL LPN - 09/18/2012 13:55 DEVELOPMENT AND HOUSING DIRECTOR Tobacco Use Grid Type : Cigarettes Cigarette Use Packs/Day : 0.5 Last Use : 10 min ago DARIUS SANDOVAL [facility] 09/18/2012 13:55 DEVELOPMENT AND HOUSING DIRECTOR Alcohol Use : No DARIUS SANDOVAL [facility] 09/18/2012 13:55 DEVELOPMENT AND HOUSING DIRECTOR Caffeine Use Grid Caffeine Use : Current Type : Soft drinks Frequency : Weekly Amount : 2 cans Last Use : 11am DARIUS SANDOVAL [facility] 09/18/2012 13:55 DEVELOPMENT AND HOUSING DIRECTOR Recreational Drug Use Grid Drug Use : None DARIUS SANDOVAL [facility] 09/18/2012 13:55 DEVELOPMENT AND HOUSING DIRECTOR Psychosocial Domestic Abuse Concerns : None DARIUS SANDOVAL [facility] 09/18/2012 13:55 DEVELOPMENT AND HOUSING DIRECTOR Advance Directive Advanced Directives : No DARIUS SANDOVAL [facility] 09/18/2012 13:55 DEVELOPMENT AND HOUSING DIRECTOR Educ Needs Learning Style Preference Adult Grid Patient : None Family : None DARIUS SANDOVAL [facility] 09/18/2012 13:55 DEVELOPMENT AND HOUSING DIRECTOR Source: [facility] POWERCHART Document Id: [id number] LOPMENT AND HOUSING DIRECTOR documented in this encounter Plan of Treatment Not on filedocumented as of this encounter Procedures Procedure Name Priority Date/Time Associated Diagnosis Comme nts INFLUENZA A/B Routine 09/18/2012 2:34 PM Results for this DEVELOPMENT AND HOUSING DIRECTOR procedure are i n the results section. N GONOR AMP SRC Routine 09/18/2012 2:33 PM Result s for this DEVELOPMENT AND HOUSING DIRECTOR procedure are i n the results section. N GONOR AMP DNA Routine 09/18/2012 2:33 PM Result s for this DEVELOPMENT AND HOUSING DIRECTOR procedure are i n the results section. C TRACH AMP SRC Routine 09/18/2012 2:33 PM Result s for this DEVELOPMENT AND HOUSING DIRECTOR procedure are i n the results section. C TRACH AMP RNA Routine 09/18/2012 2:33 PM Result s for this DEVELOPMENT AND HOUSING DIRECTOR procedure are i n the results section. documented in this encounter Results (ABNORMAL) Influenza A/B (09/18/2012 2:34 PM DEVELOPMENT AND HOUSING DIRECTOR) [facility] Method Time Signature HXInfluenza A (POSITIVE [...] / Volume Laterality Nasal 09/18/2012 2:34 PM DEVELOPMENT AND HOUSING DIRECTOR Brenna Craig APRN, C.N.P., D.N.P. LAB MICROBIOLO GY - GENERAL ORDERABLES Performing Organization Address City/State/ZIP Code Phon e Number POWERCHART HX-N gonor Amp DNA (09/18/2012 2:33 PM DEVELOPMENT AND HOUSING DIRECTOR) athologist Signature HXN gonor Amp Negative POWERCHART DNA-[place] Specimen (Source) Anatomical Collection Method Collection Time Re ceived Time Location / / Volume Laterality 09/18/2012 2:33 PM DEVELOPMENT AND HOUSING DIRECTOR Narrative POWERCHART - 09/20/2012 8:45 AM DEVELOPMENT AND HOUSING DIRECTOR Test Performed by: [place] [id number] Shipping Track Supervisor: Raji encarnacion III, M.D. Brenna Craig APRN C.N.P., D.N.P. LAB HISTORICAL ORDERS Performing Organization Address City/[facility]/ZIP Code Phon e Number POWERCHART HX-N gonor Amp Src (09/18/2012 2:33 PM DEVELOPMENT AND HOUSING DIRECTOR) athologist Signature HXN gonor Amp urine POWERCHART Src-[place] Specimen (Source) Anatomical Collection Method Collection Time Re ceived Time Location / / Volume Laterality 09/18/2012 2:33 PM DEVELOPMENT AND HOUSING DIRECTOR Brenna Craig APRN, C.N.P., D.N.P. LAB HISTORICAL ORDERS Performing Organization Address City/State/ZIP Code Phon e Number POWERCHART HX-C trach Amp RNA (09/18/2012 2:33 PM DEVELOPMENT AND HOUSING DIRECTOR) [facility] gist Method Time Signature Chlamydia Negative POWERCHART trachomatis amplified RNA Specimen (Source) Anatomical Collection Method Collection Time Re ceived Time Location / / Volume Laterality 09/18/2012 2:33 PM DEVELOPMENT AND HOUSING DIRECTOR Brenna Craig APRN, C.N.P., D.N.P. LAB HISTORICAL ORDERS Performing Organization Address City/State/ZIP Code Phon e Number POWERCHART HX-C trach Amp Src (09/18/2012 2:33 PM DEVELOPMENT AND HOUSING DIRECTOR) athologist Signature HXC trach Amp urine POWERCHART [facility] Specimen (Source) Anatomical Collection Method Collection Time Re ceived Time Location / / Volume Laterality 09/18/2012 2:33 PM DEVELOPMENT AND HOUSING DIRECTOR Brenna Craig APRN, C.N.P., D.N.P. LAB HISTORICAL ORDERS Performing Organization Address City/State/ZIP Code Phon e Number POWERCHART documented in this encounter Visit Diagnoses Not on filedocumented in this encounter
--- OUTSIDE RECORDS SUMMARY | 2022-06-02 15:05 | XMS_ITS | Encounter Summary ---
:1990 Author Organization [facility] Address [address] [place] [address] Care Team Providers Name Role Phone Unavailable Primary Care Provider Unavailable Encounter Details Date Type Department Care Team Description 01/05/2011 Hospital Encounter HX [facility] [place] Ofelia Ricardo APRN, C.N.P., D. N.P. [address] [place] [id number] (Wo rk) Social History Tobacco Use Types Packs/Day Years Used Date Smoking Tobacco: Never Assessed Sex Assigned at Date Recorded Not on file documented as of this encounter Progress Notes Ofelia Ricardo APRN, C.N.P. - 01/05/2011 12:00 AM CDT [id number] CHIEF COMPLAINT/REASON FOR VISIT: 1. Is vaginal [...] /jak Electronically Signed By: OFELIA RICARDO RN, [facility] On: 01/05/2011 11:52 Source: [facility] MHSDOLBEYNONRADSYS Document Id: [id number] documented in this encounter Miscellaneous Notes Miscellaneous - Lesley Ledesma LAniaPAniaNAnia - 01/05/2011 8:12 AM CDT Adult Delivery And Installation Subcontractor Intake/History Adult Delivery And Installation Subcontractor Intake/History Entered On: 01/05/2011 8:15 CDT Performed [...] Tobacco Smoke: Patient smokes JOSE, LESLEY Nicole MARKETING COMMUNICATIONS ASSOCIATE - 01/05/2011 8:12 CDT Tobacco Use Grid Type: Cigarettes Cigarette Use Packs/Day: 0.5 Last Use: 10 min ago LESLEY GARCIA [facility] - 01/05/2011 8:12 CDT Alcohol Use: No LESLEY GARCIA MARKETING COMMUNICATIONS ASSOCIATE - 01/05/2011 8:12 CDT Caffeine Use Grid Caffeine Use: Current Type: Soft drinks Frequency: Weekly Amount: 2 cans Last Use: 11am LESLEY GARCIA MARKETING COMMUNICATIONS ASSOCIATE - 01/05/2011 8:12 CDT Recreational Drug Use Grid Drug Use: None LESLEY GARICA MARKETING COMMUNICATIONS ASSOCIATE - 01/05/2011 8:12 CDT Allergies Allergies (Active) NKA Estimated Onset Date: Unspecified ; Created By: CATHLEEN KURTZ LPN; Reaction Status: Active ;Category: Drug ; Substance: NKA ; Type: Allergy ; Updated By: CATHLEEN KURTZ LPN; Reviewed Date: 01/05/2011 8:11 CDT Source: [facility] Document Id: [id number] CDT!35 documented in this encounter Plan of Treatment Not on filedocumented as of this encounter Visit Diagnoses Not on filedocumented in this encounter
--- OUTSIDE RECORDS SUMMARY | 2022-06-02 15:05 | XMS_ITS | Encounter Summary ---
:1990 Author Organization [facility] Address [address] [place] [address] Care Team Providers Name Role Phone Unavailable Primary Care Provider Unavailable Encounter Details Date Type Department Care Team Description 12/30/2010 Hospital Encounter HX [facility] [place] Rowan Gonsales M.D. Social History Tobacco Use Types Packs/Day Years Used Date Smoking Tobacco: Never Assessed Sex Assigned at Date Recorded Not on file documented as of this encounter Progress Notes Rowan Gonsales M.D. - 12/30/2010 12:00 AM CDT [id number] CHIEF COMPLAINT/REASON FOR VISIT Abdominal pain. HISTORY [...] if that helps. She can get that rcje-nhw-cicsfiw or alternatively I told her she could try some Prilosec. She is to eat bland foods and maybe smaller amounts. If there is no improvement in a week to 10 days or if it is worse before then she is to return. Rowan Gonsales M.D. / Electronically Signed By: ROWAN GONSALES MD On: 12/30/2010 12:29 Source: [facility] MHSDOLBEYNONRADSYS Document Id: [id number] documented in this encounter Miscellaneous Notes Miscellaneous [...] GONSALES MD - 12/30/2010 11:30 CDT Source: [facility] Document Id: [id number] CDT!5 Shashank - Cathleen Massey L.PAniaNAnia - [...] MASSEY LPN - 12/30/2010 11:07 CDT Source: [facility] Document Id: [id number] CDT!31 Shashank - Cathleen Massey L.P.NAnia - 12/30/2010 11:05 AM CDT Adult Medical Transcription Editor Intake/History Adult Medical Transcription Editor Intake/History Entered On: 12/30/2010 11:07 CDT Performed [...] LPN; Reviewed Date: 12/16/2010 9:25 CDT [facility] Document Id: [id number] CDT!36 documented in this encounter Plan of Treatment Not on filedocumented as of this encounter Visit Diagnoses Not on filedocumented in this encounter
--- OUTSIDE RECORDS SUMMARY | 2022-06-02 15:05 | XMS_ITS | Encounter Summary ---
:1990 Author Organization [facility] Address [address] [place] [address] Care Team Providers Name Role Phone Unavailable Primary Care Provider Unavailable Encounter Details Date Type Department Care Team Description 10/27/2011 Hospital Encounter HX [facility] [place] Brenna Craig, GRIS, C.N.P., D. N.P. [address] [place] [address] (Wo rk) Social History Tobacco Use Types Packs/Day Years Used Date Smoking Tobacco: Never Assessed Sex Assigned at Date Recorded Not on file documented as of this encounter Last Filed Vital Signs Vital Sign Reading Time Taken Comments Blood Pressure 100/70 10/27/2011 1:55 PM SOLUTION COORDINATOR Pulse 120 10/27/2011 1:55 PM SOLUTION COORDINATOR Temperature - - Respiratory Rate 20 10/27/2011 1:40 PM SOLUTION COORDINATOR Oxygen Saturation - - Inhaled Oxygen Concentration - - Weight 74.8 kg (164 lb 14.5 oz) 10/27/2011 1:40 PM SOLUTION COORDINATOR Height - - Body Mass Index - - documented in this encounter Progress Notes Brenna Craig, D.N.P., C.N.P. - 10/27/2011 12:00 AM CST [id number] CHIEF COMPLAINT/REASON FOR VISIT Nasal congestion. HISTORY OF PRESENT ILLNESS The patient is a 21-year-old female who presents to the clinic today with some nasal congestion that has been present now for the past 4-5 days duration. She does report that today she is feeling a little bit better. She reports that she is not currently taking anything nsys-tiy-kettzuq to help with the symptoms and also [...] and reactive to light and accommodation OROPHARYNX: [place] and moist. TM's: Bilateral tympanic membranes are [...] DNP, FNP On: 10/31/2011 05:13 PM Source: [facility] JEFERSONSDOLBESARAH Document Id: [id number] TION COORDINATOR documented in this encounter Procedure Notes Jabier Castaneda L.P.NAnia - 10/27/2011 1:55 PM CST Depo-Provera Administration Depo-Provera Administration Entered On: 10/27/2011 13:56 SOLUTION COORDINATOR Performed On: 10/27/2011 13:55 SOLUTION COORDINATOR by JABIER CASTANEDA LPN Depo-Provera Administration Annual Exam in the Past 12 Months : Yes Last Depo-Provera Given : 08/09/2011 SOLUTION COORDINATOR Return appointment : 01/10/2012 CDT Needs test : No JABIER CASTANEDA LPN - 10/27/2011 13:55 SOLUTION COORDINATOR Vitals/Ht/Wt Peripheral Pulse Rate : 120/min (HI) Systolic Blood Pressure : 100mmHg Diastolic Blood Pressure : 70mmHg NIBP Mean : 80mmHg BP Location : Left upper extremity Blood Pressure Cuff Size : Regular JABIER CASTANEDA LPN - 10/27/2011 13:55 SOLUTION COORDINATOR Source: [facility] POWERCHART Document Id: [id number] SOLUTION COORDINATOR!13 TION COORDINATOR documented in this encounter Miscellaneous Notes Miscellaneous - Brenna Craig, JameN.P., C.N.P. - 10/27/2011 1:57 PM SOLUTION COORDINATOR Ambulatory Patient Summary [id number] [place] [address] Visit Information Name: ARIS LEOS Current Date: 10/27/2011 13:57:44 Primary Care Provider: OFELIA RICARDO RN, RETURNS SUPERVISOR Your Medications Here is a list [...] No Appointments found Your Goals/Additional instructions: Source: [facility] Document Id: [id number] TION COORDINATOR Miscellaneous - Brenna Craig, Bonnie.N.P., C.N.P. - 10/27/2011 1:57 PM SOLUTION COORDINATOR Ambulatory Depart Summary [address] [address] Visit Information Name: DAFNEARIS Current Date: 10/27/2011 13:57:43 Attending Provider: BRENNA CRAIG DNP, CERAMICS TEST ENGINEER Primary Care Provider: OFELIA RICARDO RN, RETURNS SUPERVISOR DAFNE ARIS LELIA has been given the [...] to the patient and/or family, guardian/caregiver. Source: [facility] Document Id: [id number] TION COORDINATOR Miscellaneous - Jabier Castaneda L.P.N. - 10/27/2011 1:40 PM CST Adult Motorcycle Assembler Intake/History Adult Motorcycle Assembler Intake/History Entered On: 10/27/2011 13:43 SOLUTION COORDINATOR Performed On: 10/27/2011 13:40 SOLUTION COORDINATOR by JABIER CASTANEDA LPN Intake Chief Complaint [...] 74.80kg JABIER CASTANEDA LPN - 10/27/2011 13:40 SOLUTION COORDINATOR Subjective Pain Symptoms : No JABIER CASTANEDA LPN - 10/27/2011 13:40 SOLUTION COORDINATOR Dependent Habits Tobacco Use/Currently Using : Yes Exposure to Tobacco Smoke : Patient smokes Smoking Status : Smoker JABIER CASTANEDA LPN - 10/27/2011 13:40 SOLUTION COORDINATOR Tobacco Use Grid Type : Cigarettes Cigarette Use Packs/Day : 0.5 Last Use : 10 min ago JABIER CASTANEDA LPN - 10/27/2011 13:40 SOLUTION COORDINATOR Caffeine Use Grid Caffeine Use : Current Type : Soft drinks Frequency : Weekly Amount : 2 cans Last Use : 11am JABIER CASTANEDA LPN - 10/27/2011 13:40 SOLUTION COORDINATOR Recreational Drug Use Grid Drug Use : None JABIER CASTANEDA LPN - 10/27/2011 13:40 SOLUTION COORDINATOR Allergy Allergies (Active) NKA Estimated Onset Date: Unspecified ; Created By: CATHLEEN KURTZ LPN; Reaction Status: Active ;Category: Drug ; Substance: NKA ; Type: Allergy ; Updated By: CATHLEEN KURTZ LPN; Reviewed Date: 10/27/2011 13:39 SOLUTION COORDINATOR Source: [facility] POWERCHART Document Id: [id number] SOLUTION COORDINATOR!36 TION COORDINATOR documented in this encounter Plan of Treatment Not on filedocumented as of this encounter Visit Diagnoses Not on filedocumented in this encounter
--- OUTSIDE RECORDS SUMMARY | 2022-06-02 15:05 | XMS_ITS | Encounter Summary ---
:1990 Author Organization [facility] Address [address] [place] [address] Care Team Providers Name Role Phone Unavailable Primary Care Provider Unavailable Encounter Details Date Type Department Care Team Description 11/18/2014 Hospital Encounter HX [facility] ME Brenna Craig, GRIS, C.N.P., D. N.P. [address] [place] [address] (Wo rk) Social History Tobacco Use Types Packs/Day Years Used Date Smoking Tobacco: Never Assessed Sex Assigned at Date Recorded Not on file documented as of this encounter Last Filed Vital Signs Vital Sign Reading Time Taken Comments Blood Pressure 131/97 11/18/2014 1:19 PM GROCERY PACKER Pulse 105 11/18/2014 1:19 PM GROCERY PACKER Temperature - - Respiratory Rate 14 11/18/2014 1:19 PM GROCERY PACKER Oxygen Saturation - - Inhaled Oxygen Concentration - - Weight - - Height 166 cm (5' 5.35) 11/18/2014 1:19 PM GROCERY PACKER Body Mass Index - - documented in this encounter Progress Notes Brenna Craig, D.N.P., C.N.P. - 11/18/2014 1:11 PM CST [id number] CHIEF COMPLAINT/REASON FOR VISIT Rash. HISTORY OF [...] DNP, FNP On: 11/18/2014 03:38 PM [facility] Document Id: [id number] ERY PACKER documented in this encounter Miscellaneous Notes Miscellaneous - Brenna Craig D.N.P., C.N.P. - 11/18/2014 2:20 PM GROCERY PACKER Ambulatory Patient Summary [address] [id number] Visit Information Name: ARIS LEOS [facility] Number: [id number] Current Date: 11/18/2014 14:20:13 Physicians Attending Provider: BRENNA CRAIG DNP, FNP Primary Care Provider: OFELIA RICARDO RN, COMPENSATION COORDINATOR ARIS LEOS has been given the [...] day x 10 day(s) New Routed to [facility] [address] [address] Stop Taking the Following Medications: Medication list [...] appointment detail needed. Your Goals/Additional instructions: Source: [facility] POWERCHART Document Id: [id number] ERY PACKER Miscellaneous - Brenna Craig D.Ceicl.Jie., C.N.P. - 11/18/2014 2:20 PM GROCERY PACKER Ambulatory Discharge Medication List [address] [id number] Visit Information Name: ARIS LEOS [facility] Number: [id number] Visit Date: 11/18/2014 14:20:12 Attending Provider: BRENNA CRAIG DNP, DHIRAJ Primary Care Provider: OFELIA RICARDO RN, COMPENSATION COORDINATOR ARIS LEOS has been given the [...] day x 10 day(s) New Routed to [facility] [address] [address] Stop Taking the Following Medications: Medication list [...] FNP Signed On:18-NOV-2014 13:58:15 Additional Information: Source: [facility] POWERCHART Document Id: [id number] ERY PACKER Miscellaneous - Rina Caballero L.P.NAnia - 11/18/2014 1:25 PM CST Health Assessment Health Assessment Entered On: 11/18/2014 13:25 GROCERY PACKER Performed On: 11/18/2014 13:25 GROCERY PACKER by RINA CABALLERO LPN Health Assessment Complete Health Assessment Complete or Modified : Annual Health Assessment Annual Health Assessment Completed : Yes RINA CABALLERO LPN - 11/18/2014 13:25 GROCERY PACKER Nutrition Nutrition Risk Factors by History Adult : Unintentional weight loss greater than 10 lbs in last 6 months RINA CABALLERO [facility] - 11/18/2014 13:25 GROCERY PACKER Functional Current Daily Living Assistance : None RINA CABALLERO LPN - 11/18/2014 13:25 GROCERY PACKER Dependent Habits Tobacco Use/Currently Using : No Tobacco Use/Last 12 months : No Tobacco Use/Advised to Quit : No Exposure to Tobacco Smoke : Care provider denies smoking in home Smoking Status : Never smoker RINA CABALLERO [facility] - 11/18/2014 13:25 GROCERY PACKER Tobacco Use Grid Type : Cigarettes Cigarette Use Packs/Day : 0.5 Last Use : 09-20-13 RINA CAABLLERO [facility] - 11/18/2014 13:25 GROCERY PACKER Caffeine Use Grid Caffeine Use : None Last Use : 09-20-13 RINA CABALLERO [facility] - 11/18/2014 13:25 GROCERY PACKER Recreational Drug Use Grid Drug Use : None RINA CABALLERO [facility] - 11/18/2014 13:25 GROCERY PACKER Psychosocial Domestic Abuse Concerns : None Mandaen Preference : No qualifying data available. RINA CABALLERO SERVICE TEAM LEADER - 11/18/2014 13:25 GROCERY PACKER Advance Directive Advanced Directives : No Advance Directive Additional Information : No RINA CABALLERO LPN - 11/18/2014 13:25 GROCERY PACKER Educ Needs Learning Style Preference Adult Grid Patient : None Family : None RINA CABALLERO LPN - 11/18/2014 13:25 GROCERY PACKER [facility] P[facility] Document Id: [id number] GROCERY PACKER!36 ERY PACKER Miscellaneous - Rina Caballero L.P.N. - 11/18/2014 1:25 PM CST Meaningful Use Influenza Exclusion Meaningful Use Influenza Exclusion Entered On: 11/18/2014 13:25 GROCERY PACKER Performed On: 11/18/2014 13:25 GROCERY PACKER by RINA CABALLERO LPN Influenza Vaccine Exclusion Influenza Vaccine Exclusion : Patient declined RINA CABALLERO LPN - 11/18/2014 13:25 GROCERY PACKER [facility] Document Id: [id number] GROCERY PACKER!3 ERY PACKER Miscellaneous - Rina Caballero L.P.N. - 11/18/2014 1:19 PM CST Adult Salon Professional Intake/History Adult Salon Professional Intake/History Entered On: 11/18/2014 13:24 GROCERY PACKER Performed On: 11/18/2014 13:19 GROCERY PACKER by RINA CABALLERO LPN Intake Chief Complaint [...] inch(es)) RINA CABALLERO LPN - 11/18/2014 13:19 GROCERY PACKER General Info Information Given By : Patient Languages : Sudanese Is Patient Female and 13-50 no hysterectomy : Yes Status : Patient denies Are you ? : No RINA CABALLERO LPN - 11/18/2014 13:19 GROCERY PACKER Subjective Pain Symptoms : No RINA CABALLERO [facility] - 11/18/2014 13:19 GROCERY PACKER Dependent Habits Tobacco Use/Currently Using : No Tobacco Use/Last 12 months : No Tobacco Use/Advised to Quit : No Exposure to Tobacco Smoke : Care provider denies smoking in home Smoking Status : Never smoker GEORGIANARINA Mary [facility] - 11/18/2014 13:19 GROCERY PACKER Tobacco Use Grid Type : Cigarettes Cigarette Use Packs/Day : 0.5 Last Use : 09-20-13 GEORGIANARINA JANE Mary [facility] - 11/18/2014 13:19 GROCERY PACKER Caffeine Use Grid Caffeine Use : None Last Use : 09-20-13 GEORGIANA RINA Mary [facility] - 11/18/2014 13:19 GROCERY PACKER Recreational Drug Use Grid Drug Use : None GEORGIANARINA Mary [facility] - 11/18/2014 13:19 GROCERY PACKER ID Screen Drug Resistant Organism : No Travel Within Last 21 Days : No GEORGIANARINA Mary [facility] - 11/18/2014 13:19 GROCERY PACKER Source: [employer] Document Id: [id number] GROCERY PACKER!43 ERY PACKER documented in this encounter Plan of Treatment Not on filedocumented as of this encounter Procedures Procedure Name Priority Date/Time Associated Diagnosis Comme nts N GONOR AMP SRC Routine 11/18/2014 2:06 PM Result s for this GROCERY PACKER procedure are i n the results section. N GONOR AMP DNA Routine 11/18/2014 2:06 PM Result s for this GROCERY PACKER procedure are i n the results section. C TRACH AMP SRC Routine 11/18/2014 2:06 PM Result s for this GROCERY PACKER procedure are i n the results section. C TRACH AMP RNA Routine 11/18/2014 2:06 PM Result s for this GROCERY PACKER procedure are i n the results section. documented in this encounter Results HX-N gonor Amp DNA (11/18/2014 2:06 PM GROCERY PACKER) P athologist Signature HXN gonor Amp Negative POWERCHART DNA-[place] Specimen (Source) Anatomical Collection Method Collection Time Re ceived Time Location / / Volume Laterality 11/18/2014 2:06 PM GROCERY PACKER Narrative POWERCHART - 11/20/2014 6:00 PM GROCERY PACKER Test Performed by: [address] [address] [place]: Garth Diaz II, M.D., Ph.D. Brenna Craig APRN, C.N.P., D.N.P. LAB HISTORICAL ORDERS Performing Organization Address City/State/ZIP Code Phon e Number POWERCHART HX-N gonor Amp Src (11/18/2014 2:06 PM GROCERY PACKER) athologist Signature HXN gonor Amp urine POWERCHART Src-[place] Specimen (Source) Anatomical Collection Method Collection Time Re ceived Time Location / / Volume Laterality 11/18/2014 2:06 PM GROCERY PACKER Brenna Craig APRN, C.N.P., D.N.P. LAB HISTORICAL ORDERS Performing Organization Address City/[facility]/ZIP Code Phon e Number POWERCHART HX-C trach Amp RNA (11/18/2014 2:06 PM GROCERY PACKER) [facility] gist Method Time Signature Chlamydia Negative POWERCHART trachomatis amplified RNA Specimen (Source) Anatomical Collection Method Collection Time Re ceived Time Location / / Volume Laterality 11/18/2014 2:06 PM GROCERY PACKER Brenna Craig APRN, C.N.P., D.N.P. LAB HISTORICAL ORDERS Performing Organization Address City/[facility]/ZIP Code Phon e Number POWERCHART HX-C trach Amp Src (11/18/2014 2:06 PM GROCERY PACKER) athologist Signature HXC trach Amp urine POWERCHART Src-[place] Specimen (Source) Anatomical Collection Method Collection Time Re ceived Time Location / / Volume Laterality 11/18/2014 2:06 PM GROCERY PACKER Brenna Carig APRN, C.N.P., D.N.P. LAB HISTORICAL ORDERS Performing Organization Address City/State/ZIP Code Phon e Number POWERCHART documented in this encounter Visit Diagnoses Not on filedocumented in this encounter
--- OUTSIDE RECORDS SUMMARY | 2022-06-02 15:05 | XMS_ITS | Encounter Summary ---
:1990 Author Organization [facility] Address [address] [place] [address] Care Team Providers Name Role Phone Unavailable Primary Care Provider Unavailable Encounter Details Date Type Department Care Team Description 03/04/2015 Hospital Encounter HX [facility] ME Ofelia Ricardo APRN, C.N.P., D. N.P. [address] [place] [address] (Wo rk) Social History Tobacco [...] APRN, C.N.P. - 03/04/2015 3:14 PM CDT [id number] CHIEF COMPLAINT/REASON FOR VISIT Vaginal symptoms of [...] Matti.N.P./radha Electronically Signed By: OFELIA RICARDO RN, ONCOLOGY ACCOUNT SPECIALIST On: 03/05/2015 12:46 PM Source: [facility] MHSDOLBEYNONRADSYS Document Id: [id number] documented in this encounter Miscellaneous Notes Miscellaneous - Ofelia Ricardo APRN, C.N.P. - 03/04/2015 4:12 PM CDT Ambulatory Patient Summary [address] [place], [place] [phone] Visit Information Name: ARIS LEOS [facility] Number: [id number] Current Date: 03/04/2015 16:12:12 Physicians Attending Provider: OFELIA RICARDO RN, THERESA Primary Care Provider: OFELIA RICARDO RN, ONCOLOGY ACCOUNT SPECIALIST ARIS LEOS has been given the following [...] day x 7 day(s) New Routed to [facility] [address] [address] Stop Taking the Following Medications: Medication list [...] appointment detail needed. Your Goals/Additional instructions: Source: [facility] Document Id: [id number] Miscellaneous - Ofelia Ricardo APRN, C.N.P. - 03/04/2015 4:12 PM CDT Ambulatory Discharge Medication List [address] [id number] Visit Information Name: ARIS LEOS [facility] Number: [id number] Visit Date: 03/04/2015 16:12:11 Attending [...] day x 7 day(s) New Routed to [facility] [address] [address] Stop Taking the Following Medications: Medication list [...] THERESA Signed On:04-MAR-2015 16:12:09 Additional Information: Source: [facility] Document Id: [id number] Miscellaneous - Darius Sandoval L.P.N. - 03/04/2015 3:21 PM CDT Adult Surgical Sales Representative Intake/History Adult Surgical Sales Representative Intake/History Entered On: 03/04/2015 15:24 CDT Performed On: 03/04/2015 15:21 CDT by DARIUS SANDOVAL PLASTIC PARTS FABRICATOR Intake Chief Complaint : Vaginal itching. Temperature [...] Preferred Communication Mode : Verbal Languages : Macedonian Is Patient Female and 13-50 no hysterectomy [...] SANDOVAL LPN - 03/04/2015 15:21 CDT Source: [facility] POWERCHART Document Id: [id number] CDT!47 documented in this encounter Plan of Treatment Not on filedocumented as of this encounter Procedures Procedure Name Priority Date/Time Associated Comments Diagnosis WET PREP EXAM, Routine 03/04/2015 3:45 PM Results for this UROGENITAL CDT procedure are i n the results section. documented in this encounter Results (ABNORMAL) Wet Prep Exam, Urogenital (03/04/2015 3:45 PM CDT) [facility] Method Time Signature HXWet Prep (POSITIVE) [...]
--- OUTSIDE RECORDS SUMMARY | 2022-06-02 15:05 | XMS_ITS | Encounter Summary ---
:1990 Author Organization [facility] Address [address] [place] [address] Care Team Providers Name Role Phone Unavailable Primary Care Provider Unavailable Encounter Details Date Type Department Care Team Description 02/19/2013 Hospital Encounter HX [facility] Larry Souza, N.P. [address] [place] [phone] (Wo rk) Social History Tobacco Use [...] Souza, N.P. - 02/19/2013 9:26 AM CDT [id number] CHIEF COMPLAINT/REASON FOR VISIT Pain in left [...] late 2011 that seemed to improve with home care giver and conservative measures. She has been using [...] SOUZA NP On: 02/21/2013 02:07 PM Source: [facility] MHSDOLBEYNONRADSYS Document Id: [id number] documented in this encounter Miscellaneous Notes Miscellaneous - Briseyda Souza NJason - 02/19/2013 10:10 AM CDT Ambulatory Patient Summary [address] [address] Visit Information Name: ARIS LEOS [facility] Number: [id number] Current Date: 02/19/2013 10:10:39 Physicians Attending Provider: BRISEYDA SOUZA NP Primary Care Provider: OFELIA RICARDO RN, REPAIRER RESISTANCE WELDING MACHINES Your Medications Here is a list of [...] No Appointments found Your Goals/Additional instructions: Source: [facility] POWERCHART Document Id: [id number] Miscellaneous - Briseyda Souza NJason - 02/19/2013 10:10 AM CDT Ambulatory Depart Summary [facility] [address] [facility] [address] Visit Information Name: ARIS LEOS [facility] Number: [id number] Visit Date: 02/19/2013 10:10:38 Attending Provider: BRISEYDA SOUZA TRAY SERVICE WORKER Primary Care Provider: OFELIA RICARDO RN, REPAIRER RESISTANCE WELDING MACHINES ARIS LEOS has been given the following [...] your provider for clarification. Additional Information: Source: [facility] POWERCHART Document Id: [id number] Miscellaneous - Hardik Galvan, L.P.N. - 02/19/2013 9:38 AM CDT Adult Statistical Machine Servicer Intake/History Adult Statistical Machine Servicer Intake/History Entered On: 02/19/2013 9:43 CDT Performed On: 02/19/2013 9:38 CDT by HARDIK GALVAN DIRECTOR OF PSYCHIATRY, RT Intake Chief Complaint : concerned about [...] Preferred Communication Mode : Verbal Languages : Malian HARDIK GALVAN LPN, 02/19/2013 9:38 CDT Subjective [...] HARDIK GALVAN LPN, 02/19/2013 9:43 CDT [facility] Document Id: [id number] CDT!3 documented in this encounter Plan of Treatment Not on filedocumented as of this encounter Visit Diagnoses Not on filedocumented in this encounter
--- OUTSIDE RECORDS SUMMARY | 2022-06-02 15:05 | XMS_ITS | Encounter Summary ---
:1990 Author Organization [facility] Address [address] [place] [address] Care Team Providers Name Role Phone Unavailable Primary Care Provider Unavailable Encounter Details Date Type Department Care Team Description 09/23/2013 Hospital Encounter [facility]X [facility] Brenna Craig, GRIS, C.N.P., D. N.P. [address] [place] [address] (Wo rk) Social History Tobacco Use Types Packs/Day Years Used Date Smoking Tobacco: Never Assessed Sex Assigned at Date Recorded Not on file documented as of this encounter Last Filed Vital Signs Vital Sign Reading Time Taken Comments Blood Pressure 106/66 09/23/2013 10:38 AM RECYCLABLE MATERIALS DISTRIBUTOR Pulse 96 09/23/2013 10:38 AM RECYCLABLE MATERIALS DISTRIBUTOR Temperature - - Respiratory Rate - - Oxygen Saturation - - Inhaled Oxygen Concentration - - Weight 82.6 kg (182 lb 1.6 oz) 09/23/2013 10:38 AM RECYCLABLE MATERIALS DISTRIBUTOR Height 166 cm (5' 5.35) 09/23/2013 10:38 AM RECYCLABLE MATERIALS DISTRIBUTOR Body Mass Index 29.98 09/23/2013 10:38 AM RECYCLABLE MATERIALS DISTRIBUTOR documented in this encounter Progress Notes Brenna Craig, Bonnie.N.P., C.N.P. - 09/23/2013 10:27 AM CST [id number] CHIEF COMPLAINT/REASON FOR VISIT Positive test. HISTORY [...] by mouth daily. She was given the [facility] What to Expect During book as she was deferred to this book for any [id number]-vmnnnib medication usage. I also advised that she [...] DNP, FNP On: 09/27/2013 04:31 PM Source: [facility] MHSDOLBEYNONRADSYS Document Id: [id number] CLABLE MATERIALS DISTRIBUTOR documented in this encounter Miscellaneous Notes Miscellaneous - Anastacia, Historical Provider Ser - 10/23/2013 10:39 AM RECYCLABLE MATERIALS DISTRIBUTOR General Message Document Contains Addenda Addendum by SUSHANT BRASHER V on 24 October 2013 09:10:30 RECYCLABLE MATERIALS DISTRIBUTOR pt updated Addendum by OFELIA RICARDO RN, CAD MANAGER on 24 October 2013 07:43:18 RECYCLABLE MATERIALS DISTRIBUTOR From: OFELIA RICARDO RN, CAD MANAGER To: SUSHANT BRASHER V; Sent: 10/24/2013 07:43:18 RECYCLABLE MATERIALS DISTRIBUTOR Subject: RE: General Message she can do that. From: SUSHANT BRASHER V To: OFELIA RICARDO RN, CAD MANAGER; Sent: 10/23/2013 10:39:00 RECYCLABLE MATERIALS DISTRIBUTOR Subject: General Message Pt was seen 09/27 by Brenna with positive test. EDC 05/28/14. Declined to share who she willbe seeing for OB. Wants your permission to dye hair using non-ammonia hair dye. Please advise Source: [facility] POWERCHART Document Id: [id number] Miscellaneous - Brenna Craig, D.N.P., C.N.P. - 09/23/2013 11:13 AM RECYCLABLE MATERIALS DISTRIBUTOR Ambulatory Depart Summary [address] [address] Visit Information Name: ARIS CRAIG LELIA [facility] Number: [id number] Visit Date: 09/23/2013 11:13:26 Attending Provider: BRENNA CRAIG DNP, COMMUNITY FACILITATOR Primary Care Provider: OFELIA RICARDO RN, CAD MANAGER CRAIG, ARIS ROWELL has been given [...] in case of emergency. Additional Information: Source: [facility] POWERCHART Document Id: [id number] CLABLE MATERIALS DISTRIBUTOR Miscellaneous - Brenna Craig D.N.P., C.N.P. - 09/23/2013 11:13 AM RECYCLABLE MATERIALS DISTRIBUTOR Ambulatory Patient Summary [address] [address] Visit Information Name: ARIS CRAIG [facility] Number: [id number] Current Date: 09/23/2013 11:13:26 Physicians Attending Provider: BRENNA CRAIG DNP, COMMUNITY FACILITATOR Primary Care Provider: OFELIA RICARDO RN, CAD MANAGER ARIS CRAIG has been given the [...] appointment detail needed. Your Goals/Additional instructions: Source: [facility] POWERCHART Document Id: [id number] CLABLE MATERIALS DISTRIBUTOR Miscellaneous - Lion Massey L.P.N. - 09/23/2013 10:48 AM CST Health Assessment Health Assessment Entered On: 09/23/2013 10:48 RECYCLABLE MATERIALS DISTRIBUTOR Performed On: 09/23/2013 10:48 RECYCLABLE MATERIALS DISTRIBUTOR by LION MASSEY LPN Health Assessment Complete Health Assessment Complete or Modified : Annual Health Assessment Annual Health Assessment Completed : Yes LION MASSEY LPN - 09/23/2013 10:48 RECYCLABLE MATERIALS DISTRIBUTOR Nutrition Nutrition Risk Factors by History Adult : None LION MASSEY LPN - 09/23/2013 10:48 RECYCLABLE MATERIALS DISTRIBUTOR Functional Current Daily Living Assistance : None LION MASSEY LPN - 09/23/2013 10:48 RECYCLABLE MATERIALS DISTRIBUTOR Dependent Habits Tobacco Use/Currently Using : No Exposure to Tobacco Smoke : Care provider denies smoking in home Smoking Status : Former smoker LION MASSEY LPN - 09/23/2013 10:48 RECYCLABLE MATERIALS DISTRIBUTOR Tobacco Use Grid Type : Cigarettes Cigarette Use Packs/Day : 0.5 Last Use : 09-20-13 LION MASSEY LPN - 09/23/2013 10:48 RECYCLABLE MATERIALS DISTRIBUTOR Caffeine Use Grid Caffeine Use : None Last Use : 09-20-13 LION MASSEY LPN - 09/23/2013 10:48 RECYCLABLE MATERIALS DISTRIBUTOR Recreational Drug Use Grid Drug Use : None LION MASSEY LPN - 09/23/2013 10:48 RECYCLABLE MATERIALS DISTRIBUTOR Psychosocial Domestic Abuse Concerns : None LION MASSEY LPN - 09/23/2013 10:48 RECYCLABLE MATERIALS DISTRIBUTOR Advance Directive Advanced Directives : No Advance Directive Additional Information : No LION MASSEY LPN - 09/23/2013 10:48 RECYCLABLE MATERIALS DISTRIBUTOR Educ Needs Learning Style Preference Adult Grid Patient : None Family : None LION MASSEY LPN - 09/23/2013 10:48 RECYCLABLE MATERIALS DISTRIBUTOR Source: [facility] POWERCHART Document Id: [id number] RECYCLABLE MATERIALS DISTRIBUTOR!33 CLABLE MATERIALS DISTRIBUTOR Miscellaneous - Lion Massey L.PAniaNAnia - 09/23/2013 10:38 AM CST Adult Manager Rail Intake/History Document Has Been Updated Adult Manager Rail Intake/History Entered On: 09/23/2013 10:38 RECYCLABLE MATERIALS DISTRIBUTOR Performed On: 09/23/2013 10:38 RECYCLABLE MATERIALS DISTRIBUTOR by LION MASSEY LPN Intake Chief Complaint [...] kg/m2 LION MASSEY LPN - 09/23/2013 10:41 RECYCLABLE MATERIALS DISTRIBUTOR Weight Source : Standing scale LION MASSEY LPN - 09/23/2013 10:38 RECYCLABLE MATERIALS DISTRIBUTOR General Info Information Given By : Patient Languages : Mongolian LION MASSEY LPN - 09/23/2013 10:38 RECYCLABLE MATERIALS DISTRIBUTOR Subjective Pain Symptoms : No LION MASSEY LPN - 09/23/2013 10:38 RECYCLABLE MATERIALS DISTRIBUTOR Dependent Habits Alcohol Use : No LION MASSEY LPN - 09/23/2013 10:41 RECYCLABLE MATERIALS DISTRIBUTOR Tobacco Use/Currently Using : No Tobacco Use/Last 12 months : No Tobacco Use/Advised to Quit : No Exposure to Tobacco Smoke : Care provider denies smoking in home Smoking Status : Former smoker LION MASSEY LPN - 09/23/2013 10:38 RECYCLABLE MATERIALS DISTRIBUTOR LION MASSEY LPN - 09/23/2013 10:38 RECYCLABLE MATERIALS DISTRIBUTOR Tobacco Use Grid Type : Cigarettes Cigarette Use Packs/Day : 0.5 Last Use : 09-20-13 LION MASSEY Mary [facility] - 09/23/2013 10:41 RECYCLABLE MATERIALS DISTRIBUTOR Caffeine Use Grid Caffeine Use : None Type : Frequency : Amount : Last Use : 09-20-13 LION MASSEY Mary [facility] - 09/23/2013 10:41 RECYCLABLE MATERIALS DISTRIBUTOR Recreational Drug Use Grid Drug Use : None LION MASSEY Mary [facility] - 09/23/2013 10:38 RECYCLABLE MATERIALS DISTRIBUTOR Source: [facility] POWERCHART Document Id: [id number] RECYCLABLE MATERIALS DISTRIBUTOR!45 CLABLE MATERIALS DISTRIBUTOR documented in this encounter Plan of Treatment Not on filedocumented as of this encounter Procedures Procedure Name Priority Date/Time Associated Diagnosis Comme nts TEST, U Routine 09/23/2013 10:46 AM Res ults for this RECYCLABLE MATERIALS DISTRIBUTOR procedure are i n the results section. documented in this encounter Results Test, Qualitative, Urine (09/23/2013 10:46 AM RECYCLABLE MATERIALS DISTRIBUTOR) [facility] gist Method Time Signature HXBeta-hCG Positive POWERCHART Qualitative Urine Specimen (Source) Anatomical Collection Method Collection Time Re ceived Time Location / / Volume Laterality Urine 09/23/2013 10:46 AM RECYCLABLE MATERIALS DISTRIBUTOR Brenna Craig APRN, C.N.P., D.N.P. LAB URINE EPI VO Performing Organization Address City/State/ZIP Code Phon e Number POWERCHART documented in this encounter Visit Diagnoses Not on filedocumented in this encounter
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
--- OUTSIDE RECORDS SUMMARY | 2022-06-02 15:05 | XMS_ITS | Encounter Summary ---
:1990 Author Organization [facility] Address [address] [place] [address] Care Team Providers Name Role Phone Unavailable Primary Care Provider Unavailable Encounter Details Date Type Department Care Team Description 11/05/2010 Hospital Encounter [facility] INPT/OBS[facility] Carol Mendes M.D. Social History Tobacco Use Types Packs/Day Years Used Date Smoking Tobacco: Never Assessed Sex Assigned at Date Recorded Not on file documented as of this encounter Plan of Treatment Not on filedocumented as of this encounter Visit Diagnoses Not on filedocumented in this encounter
--- OUTSIDE RECORDS SUMMARY | 2022-06-02 15:05 | XMS_ITS | Encounter Summary ---
:1990 Author Organization [facility] Address [address] [place] [address] Care Team Providers Name Role Phone Unavailable Primary Care Provider Unavailable Encounter Details Date Type Department Care Team Description 12/23/2013 Hospital Encounter [facility] OR Nayeli Campos M.D. [address] [place] [address] (Wo rk) Social History Tobacco Use [...] Body Mass Index 28.89 09/23/2013 10:38 AM SLATE SPLITTER documented in this encounter Progress Notes Nayeli Koenig M.D. - 12/23/2013 6:50 AM CDT [id number] CHIEF COMPLAINT/REASON FOR VISIT Sore throat. HISTORY [...] expressed understanding of the content Nayeli Washington M.D./[facility] Electronically Signed By: NAYELI DICKERSON MD On: 01/04/2014 08:50 PM Modified by and Electronically Signed by: NAYELI DICKERSON MD On: 01/04/2014 08:50 PM Source: [facility] MHSDOLBEYNONRADSYS Document Id: [id number] documented in this encounter Miscellaneous Notes Miscellaneous - Nayeli Koenig M.D. - 12/23/2013 7:30 AM CDT Ambulatory Patient Summary [facility] [address] [facility] [place] [phone] Visit Information Name: ARIS LEOS [facility] Number: [id number] Current Date: 12/23/2013 07:30:58 Physicians Attending Provider: NAYELI DICKERSON MD Primary Care Provider: OFELIA RICARDO RN, NANOTECHNOLOGY ENGINEERING TECHNICIAN ARIS LEOS has been given the following [...] detail needed. Your Goals/Additional instructions: Source: [facility] POWERCHART Document Id: [id number] Miscellaneous - Nayeli Koenig M.D. - 12/23/2013 7:30 AM CDT Ambulatory Discharge Medication List [facility] [address] [facility] [place] [id number] Visit Information Name: ARIS LEOS [facility] Number: [id number] Visit Date: 12/23/2013 07:30:57 Attending Provider: NAYELI DICKERSON MD Primary Care Provider: OFELIA RICARDO RN, NANOTECHNOLOGY ENGINEERING TECHNICIAN ARIS LEOS has been given the following [...] case of emergency. Additional Information: Source: [facility] POWERCHART Document Id: [id number] Miscellaneous - Hardik Galvan, L.P.N. - 12/23/2013 7:00 AM CDT Adult Manager University Intake/History Adult Manager University Intake/History Entered On: 12/23/2013 7:06 CDT Performed On: 12/23/2013 7:00 CDT by HARDIK GALVAN SANDWICH AND DRINK CART OPERATOR, RT Intake Chief Complaint : Concerned about [...] Preferred Communication Mode : Verbal Languages : Wolof HARDIK GALVAN LPN, 12/23/2013 7:00 CDT Subjective [...] HARDIK GALVAN LPN, 12/23/2013 7:00 CDT [facility] Document Id: [id number] CDT!43 documented in this encounter Plan of [...] Strep A Screen (12/23/2013 7:13 AM CDT) [facility] Method Time Signature HXRapid Strep POWERCHART Confirmation HXPre Negative for POWERCHART Group A Strep by culture. HXFinal Negative for POWERCHART Group A Strep by culture. Specimen Anatomical Collection Method Collection Time Receive d Time (Source) Location / / Volume Laterality Throat 12/23/2013 7:13 AM 4 7:13 CDT AM CDT Nayeli Jarrett M.D. LAB MICROBIOLOGY - GENE RAL ORDERABLES Performing Organization Address City/[facility] Code Phon e Number POWERCHART Rapid Strep A Screen (12/23/2013 7:13 AM CDT) [facility] Method Time Signature HXStrep A POWERCHART Screen [...]
--- OUTSIDE RECORDS SUMMARY | 2022-06-02 15:05 | XMS_ITS | Encounter Summary ---
:1990 Author Organization [facility] Address [address] [place] [address] Care Team Providers Name Role Phone Unavailable Primary Care Provider Unavailable Encounter Details Date Type Department Care Team Description 12/16/2010 Hospital Encounter [facility]X [facility] ME Brenna Craig, GRIS, C.N.P., D. N.P. [address] [place] [address] (Wo rk) Social History Tobacco Use Types Packs/Day Years Used Date Smoking Tobacco: Never Assessed Sex Assigned at Date Recorded Not on file documented as of this encounter Progress Notes Brenna Carig, D.N.P., C.N.P. - 12/16/2010 12:00 AM CDT [id number] CHIEF COMPLAINT/REASON FOR VISIT Sore throat. HISTORY [...] CRAIG DNP, FNP On: 12/16/2010 11:54 Source: [facility] MHSDOLBEYNONRADSYS Document Id: [id number] documented in this encounter Miscellaneous Notes Miscellaneous - Brenna Craig D.N.P., C.N.P. - 12/16/2010 10:06 AM CDT Ambulatory Patient Summary [facility] [address] [place] [address] Visit Information Name: ARIS LEOS Current Date: [...] No Appointments found Your Goals/Additional instructions: Source: [facility] POWERCHART Document Id: [id number] Electronically signed by Anastacia, [facility] Paper Making Machine Operator [id number] at 03/05/2017 5:50 PM CDT Miscellaneous - Brenna Craig D.N.P., C.N.P. - 12/16/2010 10:06 AM CDT Ambulatory Depart Summary [facility] [address] [place] [address] Visit Information Name: ARIS LEOS Current Date: [...] to the patient and/or family, guardian/caregiver. Source: [facility] POWERCHART Document Id: [id number] Electronically signed by Anastacia [facility] Paper Making Machine Operator [id number] at 03/05/2017 5:50 PM CDT Miscellaneous - Lesley Ledesma, L.P.N. - 12/16/2010 9:26 AM CDT Adult Acct Exec Intake/History Adult Acct Exec Intake/History Entered On: 12/16/2010 9:29 CDT Performed On: 12/16/2010 9:26 CDT by LESLEY GARCIA BUILDING EQUIPMENT INSPECTOR Intake Chief Complaint: cold since yesterday sore throat chills Temperature Core: 37.1C(Converted to: 98.8DegF) Peripheral Pulse Rate: 102/min (HI) Respiratory Rate: 14/min Systolic Blood Pressure: 110mmHg Diastolic Blood Pressure: 64mmHg NIBP Mean: 79mmHg BP Location: Left upper extremity Heart Rhythm: Regular Actual Weight: 65.400kg(Converted to: 144lb 3oz) Weight Source: Standing scale Dosing Weight Clinic: 65.40kg JOSE, LESLEY Nicole [facility] - 12/16/2010 9:26 CDT Subjective Pain Symptoms: Yes JOSE LESLEY Nicole BUILDING EQUIPMENT INSPECTOR - 12/16/2010 9:26 CDT Pain Pain Assessment Grid Pain 1 Location: Throat Intensity: 8 JOSE, LESLEY Nicole [facility] - 12/16/2010 9:26 CDT Dependent Habits Tobacco Use/Currently Using: Yes Exposure to Tobacco Smoke: Patient smokes JOSE LESLEY Nicole [facility] - 12/16/2010 9:26 CDT Tobacco Use Grid Type: Cigarettes Cigarette Use Packs/Day: 0.5 Last Use: 10 min ago LESLEY GARCIA [facility] - 12/16/2010 9:26 CDT Alcohol Use: No LESLEY GARCIA [facility] - 12/16/2010 9:26 CDT Caffeine Use Grid Caffeine Use: Current Type: Soft drinks Frequency: Weekly Amount: 2 cans Last Use: 11am LESLEY GARCIA [facility] - 12/16/2010 9:26 CDT Recreational Drug Use Grid Drug Use: None LESLEY GARCIA [facility] - 12/16/2010 9:26 CDT Allergies Allergies (Active) NKA Estimated Onset Date: Unspecified ; Created By: CATHLEEN KURTZ LPN; Reaction Status: Active ;Category: Drug ; Substance: NKA ; Type: Allergy ; Updated By: CATHLEEN KURTZ LPN; Reviewed Date: 12/16/2010 9:25 CDT [facility] Document Id: [id number] CDT!40 documented in this encounter Plan of Treatment Not on filedocumented as of this encounter Visit Diagnoses Not on filedocumented in this encounter
--- OUTSIDE RECORDS SUMMARY | 2022-06-02 15:05 | XMS_ITS | Encounter Summary ---
:1990 Author Organization [facility] Address [address] [place] [address] Care Team Providers Name Role Phone Unavailable Primary Care Provider Unavailable Encounter Details Date Type Department Care Team Description 10/21/[address] [facility] ME Dany Avalos M.D. [address] [place] [address] (Wo rk) Social History Tobacco Use Types Packs/Day Years Used Date Smoking Tobacco: Never Assessed Sex Assigned at Date Recorded Not on file documented as of this encounter Last Filed Vital Signs Vital Sign Reading Time Taken Comments Blood Pressure 118/72 10/21/2014 12:58 PM DIAMOND GRADER Pulse 72 10/21/2014 12:58 PM DIAMOND GRADER Temperature - - Respiratory Rate 16 10/21/2014 12:58 PM DIAMOND GRADER Oxygen Saturation - - Inhaled Oxygen Concentration - - Weight - - Height 166 cm (5' 5.35) 10/21/2014 12:58 PM DIAMOND GRADER Body Mass Index - - documented in this encounter Progress Notes Elliott Avalos M.D. - 10/21/2014 12:35 PM CST [id number] CHIEF COMPLAINT/REASON FOR VISIT Left knee pain. [...] Source: [facility] MHSDOLBEYNONRADSYS Document Id: [id number] OND GRADER documented in this encounter Miscellaneous Notes Miscellaneous - Marva Duarte L.P.N. - 10/21/2014 12:58 PM CST Adult Data Transcriber Intake/History Adult Data Transcriber Intake/History Entered On: 10/21/2014 13:01 DIAMOND GRADER Performed On: 10/21/2014 12:58 DIAMOND GRADER by MARVA DUARTE Intake Chief Complaint : [...] inch(es), 65 inch(es)) MARVA DUARTE 10/21/2014 12:58 DIAMOND GRADER General Info Information Given By : Patient Languages : Irish Is Patient Female and 13-50 no hysterectomy : Yes Status : Patient denies Are you ? : No MARVA DUARTE 10/21/2014 12:58 DIAMOND GRADER Subjective Pain Symptoms : Yes MARVA DUARTE 10/21/2014 12:58 DIAMOND GRADER Pain Scale Pain Scale Verbal 0-10 : Open MARVA DUARTE 10/21/2014 12:58 DIAMOND GRADER Pain Pain Assessment Grid Pain 1 Location : Knee Intensity : 4 MARVA DUARTE 10/21/2014 12:58 DIAMOND GRADER Dependent Habits Tobacco Use/Currently Using : No Exposure to Tobacco Smoke : Care provider denies smoking in home Smoking Status : Former smoker MARVA DUARTE 10/21/2014 12:58 DIAMOND GRADER Tobacco Use Grid Type : Cigarettes Cigarette Use Packs/Day : 0.5 Last Use : 09-20-13 MARVA DUARTE 10/21/2014 12:58 DIAMOND GRADER Caffeine Use Grid Caffeine Use : None Last Use : 09-20-13 MARVA DUARTE 10/21/2014 12:58 DIAMOND GRADER Recreational Drug Use Grid Drug Use : None MARVA DUARTE 10/21/2014 12:58 DIAMOND GRADER ID Screen Travel Within Last 21 Days : No MARVA DUARTE 10/21/2014 12:58 DIAMOND GRADER Source: [facility] POWERCHART Document Id: [id number] DIAMOND GRADER!45 OND GRADER documented in this encounter Plan of Treatment Not on filedocumented as of this encounter Visit Diagnoses Not on filedocumented in this encounter
--- OUTSIDE RECORDS SUMMARY | 2022-06-02 15:06 | XMS_ITS | Encounter Summary ---
:1990 Author Organization [place] Address [facility]0 [place] [address] Care Team Providers Name Role Phone No Ref-Primary, Physician Primary Care Provider [phone] Reason for Referral Diagnostic Imaging Ultrasound (Routine) - Pending Review Specialty Diagnoses / Procedures Referred By Contact Refer red To Contact Diagnoses related condition, antepartum Romana Metzger MD Procedures [facility] [address] [place] [address] Fax: Referral ID Status Reason Start Date Expiration Date Visits V isits Requested Authorized [id number] Pending 01/26/2022 01/26/2023 1 1 Review Reason for Visit Diagnostic Imaging Ultrasound (Routine) - Pending Review Specialty Diagnoses / Procedures Referred By Contact Refer red To Contact Diagnoses related condition, antepartum Romana Metzger MD Procedures [facility] [address] [place] [address] Fax: Referral ID Status Reason Start Date Expiration Date Visits V isits Requested Authorized [id number] Pending 01/26/2022 01/26/2023 1 1 Review Encounter Details Date Type Department Care Team Description 01/28/2022 Hospital Encounter [facility] Eduarda Metzger MD [facility] [address] [place] [address] related Maternal Afsaneh Enciso, DO [address] [facility] [address] [place], [place] [id number] condition, Medicine Center antepartum [place] [address] [facility] [address] [place] [address] Social History Tobacco Use Types [...] results section. documented in this encounter Results [facility] US Comprehensive Single (01/28/2022 2:16 PM [...] LEOS Study Date: 01/28/2022 1:24pm Pat. NO: [id number] Referring ??MD: ZACH METZGER Site: [facility] Steward/Stewardess Wine: Tania Reid RD [place] : 1990 Age: [...] lb 13 ? oz EFW by ?Hadlock (OVF-HQ-AF-FL) Head / Face / Neck Biometry: Bulk Driver ? 4.6 ? mm CM ?5.7 ? [...] cava. Inferior vena cava. 3-vessel view. ? 6-iwyuia-jnsiqgb view. Cardiac position. Cardiac size. Cardiac rhythm. [...] We discussed the findings [facility] with the patient. Referred due to prominent [...] Pat. Name:Alejandro LEOS Date: 1:24pm Pat. NO: [id number] :ROMANA METZGER [facility]Tania Reid RDMS :1990Age:31 INDICATION Left, Echogenic [...] 0 lb 13 oz EFW by Hadlock (LMR-QP-PO-FL) Head / Face / Neck Biometry: Bulk Driver 4.6 mm CM 5.7 mm Nasal bone [...] vena cava. Inferior vena cava. 3-vessel view. 0-kpzzgv-oofkovp view. Cardiac position . Cardiac size. Cardiac [...] RECOMMENDATION We discussed the findings on [facility]'s [facility] with [facility]. Referred due to prominent [...] volume appeared no rmal. Romana Metzger MD [facility] US ORDERABLES documented in this encounter Visit Diagnoses Diagnosis related condition, antepartum documented in this encounter Care Teams Wiring Mechanic Relationship Specialty Start Date End Date No Ref-Primary, Physician PCP - General 01/27/22 documented as of this encounter
--- OUTSIDE RECORDS SUMMARY | 2022-06-02 15:06 | XMS_ITS | Encounter Summary ---
:1990 Author Organization [place] Address [facility] [place] [address] Care Team Providers Name Role Phone No Ref-Primary, Physician Primary Care Provider [phone] Afsaneh Enciso DO Unavailable [phone] Encounter Details Date Type Department Care [...] on filedocumented in this encounter Care Teams Marriage And Family Therapist Relationship Specialty Start Date End Date No Ref-Primary, Physician PCP - General 01/27/22 Afsaneh Enciso DO Assigned OBGYN Provider 02/06/22 04/29/[address] [place] [address] [address] [place] [address] documented as of this encounter
--- OUTSIDE RECORDS SUMMARY | 2022-06-02 15:06 | XMS_ITS | Encounter Summary ---
:1990 Author Organization [facility] Address [address] [place] [address] Care Team Providers Name Role Phone Unavailable Primary Care Provider Unavailable Encounter Details Date Type Department Care Team Description 11/26/2009 Hospital Encounter [facility]X [facility] INPT/OBSRV Sánchez Roland L, GRIS, C.N.P., D.N.P. [address] [place] [address] (Wo rk) Social History Tobacco Use Types Packs/Day Years Used Date Smoking Tobacco: Never Assessed Sex Assigned at Date Recorded Not on file documented as of this encounter Plan of Treatment Not on filedocumented as of this encounter Visit Diagnoses Not on filedocumented in this encounter
--- OUTSIDE RECORDS SUMMARY | 2022-06-02 15:06 | XMS_ITS | Encounter Summary ---
:1990 Author Organization [place] Address [address] [place] [address] Care Team Providers Name Role Phone No Ref-Primary, Physician Primary Care Provider Encounter Details Date Type [...] on filedocumented in this encounter Care Teams Photoengraving Apprentice Relationship Specialty Start Date End Date No Ref-Primary, Physician PCP - General 01/27/22 documented as of this encounter
--- OUTSIDE RECORDS SUMMARY | 2022-06-02 15:06 | XMS_ITS | Encounter Summary ---
:1990 Author Organization [facility] Address [address] [place] [address] Care Team Providers Name Role Phone Unavailable Primary Care Provider Unavailable Encounter Details Date Type Department Care Team Description 02/02/[address] [facility] INPT/OBSRV Nathalie Gerardo, P.A.-Zulema. [address] [place] [address] (Wo rk) Social History Tobacco Use Types Packs/Day Years Used Date Smoking Tobacco: Never Assessed Sex Assigned at Date Recorded Not on file documented as of this encounter Plan of Treatment Not on filedocumented as of this encounter Visit Diagnoses Not on filedocumented in this encounter
--- OUTSIDE RECORDS SUMMARY | 2022-06-02 15:06 | XMS_ITS | Encounter Summary ---
:1990 Author Organization [facility] Address [address] [place] [address] Care Team Providers Name Role Phone Unavailable Primary Care Provider Unavailable Encounter Details Date Type Department Care Team Description 06/28/2010 Hospital Encounter [facility] INPT/OBSRV Cecil Tipton M.D. [address] [place], [place] [address] (Wo rk) Social History Tobacco Use Types Packs/Day Years Used Date Smoking Tobacco: Never Assessed Sex Assigned at Date Recorded Not on file documented as of this encounter Plan of Treatment Not on filedocumented as of this encounter Visit Diagnoses Not on filedocumented in this encounter
--- OUTSIDE RECORDS SUMMARY | 2022-06-02 15:06 | XMS_ITS | Encounter Summary ---
:1990 Author Organization [facility] Address [address] [place] [address] Care Team Providers Name Role Phone Unavailable Primary Care Provider Unavailable Encounter Details Date Type Department Care Team Description 07/03/2009 Hospital Encounter [facility]X [facility] INPT/OBSRV Cecil Tipton M.D. [address] [place], [place] [address] (Wo rk) Social History Tobacco Use Types Packs/Day Years Used Date Smoking Tobacco: Never Assessed Sex Assigned at Date Recorded Not on file documented as of this encounter Plan of Treatment Not on filedocumented as of this encounter Visit Diagnoses Not on filedocumented in this encounter
--- OUTSIDE RECORDS SUMMARY | 2022-06-02 15:06 | XMS_ITS | Encounter Summary ---
:1990 Author Organization [place] Address [address] [place] [address] Care Team Providers Name Role Phone Unavailable Primary Care Provider Unavailable Reason for Visit Reason Comments Ultrasound L2-L Ventricular EIF, bilate ral adrenal gland enlargement Encounter Details Date Type Department Care Team Description 01/26/2022 PRE VISIT [facility] Carlos, Ultrasound (L2-L Maternal Medicine ABIEL Gardiner Vent ricular EIF, [facility] bilateral adrenal [address] gland en largement) [address] [place] [address] Social History Tobacco Use Types [...]
--- OUTSIDE RECORDS SUMMARY | 2022-06-02 15:06 | XMS_ITS | Encounter Summary ---
:1990 Author Organization [place] Address [address] [place] [address]. [place] [address] Care Team Providers Name Role Phone Unavailable Primary Care Provider Unavailable Reason for Referral Consultation (Routine: Next available opening) - Pending Review Specialty Diagnoses / Procedures Referred By Contact Refer red To Contact Diagnoses related condition, antepartum Romana Mar MD [facility] [address] [place] [address] Fax: Referral ID Status Reason Start Date Expiration Date Visits V isits Requested Authorized [id number] Pending 01/25/2022 01/25/2023 1 1 Review Encounter Details Date Type Department Care Team Description 01/25/2022 Transcribe Orders [facility] Romana Mar, Pr egnancy related Maternal MD condition, [facility] antepartum (Primary [facility] Dx) [address] [facility] [address] [place] [address] [phone] Social History Tobacco Use Types Packs/Day Years [...]
--- OUTSIDE RECORDS SUMMARY | 2022-06-02 15:06 | XMS_ITS | Encounter Summary ---
:1990 Author Organization [facility] Address [address] [place] [address] Care Team Providers Name Role Phone Unavailable Primary Care Provider Unavailable Encounter Details Date Type Department Care Team Description 01/25/2010 Hospital Encounter [facility]X [facility] INPT/OBSRV Lisa Velez M.D. [address] [place] [address] (Wo rk) Social History Tobacco Use Types Packs/Day Years Used Date Smoking Tobacco: Never Assessed Sex Assigned at Date Recorded Not on file documented as of this encounter Plan of Treatment Not on filedocumented as of this encounter Visit Diagnoses Not on filedocumented in this encounter
--- OUTSIDE RECORDS SUMMARY | 2022-06-02 15:06 | XMS_ITS | Encounter Summary ---
:1990 Author Organization [place] Address [address] [facility] [place] [address] Care Team Providers Name Role Phone No Ref-Primary, Physician Primary Care Provider [phone] Encounter Details Date Type Department Care Team Description 01/28/2022 Orders Only [facility] Vilma Garcia, Warren rmal Maternal GC ultrasound (Primary Medicine Center [address] Dx) [place] [address] [place], [place] [address] [phone] (Wo rk) Social History Tobacco Use Types [...] screening documented in this encounter Care Teams Table And Desk Finisher Relationship Specialty Start Date End Date No Ref-Primary, Physician PCP - General 01/27/22 documented as of this encounter
--- OUTSIDE RECORDS SUMMARY | 2022-06-02 15:06 | XMS_ITS | Encounter Summary ---
:1990 Author Organization [place] Address [address] [place] [address]. [place] [address] Care Team Providers Name Role Phone Unavailable Primary Care Provider Unavailable Encounter Details Date Type Department Care Team Description 01/25/2022 Medical Correspondence [facility] Scan, MATERNAL Health Info Mgmt Non-Provider MEDICINE CE [facility] Srvcs PROVIDER SERVICE [address] [place] [address] [place] [address] [facility] [phone] Social History Tobacco Use Types Packs/Day Years Used Date Never Assessed Sex Assigned at Date Recorded Not on file documented as of this encounter Plan of Treatment Not on filedocumented as of this encounter Visit Diagnoses Not on filedocumented in this encounter
--- OUTSIDE RECORDS SUMMARY | 2022-06-02 15:06 | XMS_ITS | Encounter Summary ---
:1990 Author Organization [place] Address [facility] [place] [address] Care Team Providers Name Role Phone No Ref-Primary, Physician Primary Care Provider [phone] Reason for Referral Diagnostic Imaging Ultrasound (Routine) - Pending Review Specialty Diagnoses / Procedures Referred By Contact Refer red To Contact Diagnoses Suspected anomaly, antepartum, single or unspecified fetus Afsaneh Enciso, Procedures [facility] US Comprehensive Single F/U DO [address] [place], [place] [address] Referral ID Status Reason Start Date Expiration Date Visits V isits Requested Authorized [id number] Pending 01/28/2022 01/28/2023 1 1 Review Reason for Visit Reason Comments Ultrasound L2-EIF, bilateral enlarged a drenals Encounter Details Date Type Department Care Team Description 01/28/2022 Office Visit [facility] Romana Metzger MD [facility] [address] [place] [address] Suspected anomaly, antepartum, sin gle or unspecified fetus (Primary Dx); Maternal Afsaneh Enciso, [address] [place] [address] Echogenic focus of bowel of fetus affect ing antepartum care of mother, single or unspecified fetus [facility] [address] [facility] [address] [place] [address] Social History Tobacco Use Types [...] on filedocumented as of this encounter Results [facility] US Comprehensive Single F/U (02/25/2022 8:31 [...] LEOS Study Date: 02/25/2022 7:44am Pat. NO: [id number] Referring ??: ZACH METZGER Site: [facility] Equipment Manager: Juliette Ocasio RD [place] : 1990 Age: [...] lb 11 ? oz EFW by ?Hadlock (MPS-IS-LB-FL) Head / Face / Neck Biometry: Tiler ? 5.6 ? mm CM ?6.1 ? mm ANATOMY Abdomen ? Right adrenal gland: prominent ? Left adrenal gland: prominent The following structures appear normal: Head / Neck ? Cranium. Head size. Head shape. Lateral ventricles. Midline falx. Cavum septi pellucidi. Cerebellum. Cisterna magna. Thalami. Face ? Lips. Profile. Nose. Heart / Thorax ?4-chamber view. RVOT view. LVOT view. 9-gqdyqu-ikehpaj view. ? Diaphragm. Abdomen ? Stomach. Kidneys. [...] Pat. Name:Alejandro LEOS Date: 7:44am Pat. NO: [id number] MD:ROMANA METZGER [facility]Juliette Ocasio RD :1990Age:31 INDICATION Prominent adrenal glands [...] 1 lb 11 oz EFW by Hadlock (LUV-XK-XX-FL) Head / Face / Neck Biometry: Tiler 5.6 mm CM 6.1 mm ANATOMY Abdomen Right adrenal gland: prominent Left adrenal gland: prominent The following structures appear normal: Head / Neck Cranium. Head size. Head sha pe. Lateral ventricles. Midline falx. Cavum septi pellucidi. Cerebellum. Cisterna magna. Thalami. Face Lips. Profile. Nose. Heart / Thorax 4-chamber view. RVOT view . LVOT view. 2-iglciy-yzeymxe view. Diaphragm. Abdomen Stomach. Kidneys. Bladder. Spine [...] fetus documented in this encounter Care Teams [employer] Consultant Relationship Specialty Start Date End Date No Ref-Primary, Physician PCP - General 01/27/22 documented as of this encounter
--- OUTSIDE RECORDS SUMMARY | 2022-06-02 15:06 | XMS_ITS | Clinical Summary ---
:1990 Author Organization [place] Address [address] [place] [address] Care Team Providers Name Role Phone No Ref-Primary, Physician Primary Care Provider [phone] Social History Tobacco Use Types Packs/Day Years [...] to co mplete this topic 66 Years) Insurance Payer Benefit Plan Subscriber ID Effective Phone Address Typ e / Group Dates [facility] [id number] 2021-Deonte [phone] [id number] [facility] [address] [facility] [address] [place] [phone] Care Teams Trouble Tracer Relationship Specialty Start Date End Date No Ref-Primary, Physician PCP - General 01/27/22
--- OUTSIDE RECORDS SUMMARY | 2022-06-02 15:06 | XMS_ITS | Encounter Summary ---
:1990 Author Organization [place] Address [address] [place] [address]. [place] [address] Care Team Providers Name Role Phone Unavailable Primary Care Provider Unavailable Reason for Referral Diagnostic Imaging Ultrasound (Routine) - Pending Review Specialty Diagnoses / Procedures Referred By Contact Refer red To Contact Diagnoses related condition, antepartum Romana Metzger MD Procedures [facility] [address] [place] [address] Fax: Referral ID Status Reason Start Date Expiration Date Visits V isits Requested Authorized [id number] Pending 01/26/2022 01/26/2023 1 1 Review Encounter Details Date Type Department Care Team Description 01/26/2022 [facility], Pr egnancy related Maternal MD condition, [facility] antepartum (Primary [facility] Dx) [address] [address] [phone] Social History Tobacco Use Types Packs/Day Years Used Date Never Assessed Sex Assigned at Date Recorded Not on file documented as of this encounter Plan of Treatment Not on filedocumented as of this encounter Results [facility] (01/28/2022 2:16 PM CDT) Anatomical [...] LEOS Study Date: 01/28/2022 1:24pm Pat. NO: [id number] Referring ??: ZACH METZGER Site: [facility] Security Manager: Tania Reid RD [place] : 1990 Age: 31 INDICATION Left, Echogenic [...] lb 13 ? oz EFW by ?Hadlock (CDN-JR-BI-[place]) Head / Face / Neck Biometry: Trade Show Specialist ? 4.6 ? mm CM ?5.7 [...] cava. Inferior vena cava. 3-vessel view. ? 4-quzile-ovyyyqd view. Cardiac position. Cardiac size. Cardiac rhythm. [...] RECOMMENDATION We discussed the findings on [facility]'s [facility] the patient. Referred due to prominent [...] Pat. Name:ARIS LEOSDavid Date: 1:24pm Pat. NO: [id number] MD:ROMANA METZGER [facility]Tania [facility] RDMS :1990Age:31 INDICATION Left, Echogenic [...] 0 lb 13 oz EFW by Hadlock (CBB-YF-OA-FL) Head / Face / Neck Biometry: Trade Show Specialist 4.6 mm CM 5.7 mm Nasal [...] vena cava. Inferior vena cava. 3-vessel view. 6-nuwayy-dddiitm view. Cardiac position . Cardiac size. Cardiac [...] RECOMMENDATION We discussed the findings on today's [facility] with the patient. Referred due [...] volume appeared no rmal. Romana Metzger MD [facility] US ORDERABLES documented in this encounter Visit Diagnoses Diagnosis related condition, antepartum - Primary related condition, antepartum documented in this encounter
--- OUTSIDE RECORDS SUMMARY | 2022-06-02 15:06 | XMS_ITS | Encounter Summary ---
:1990 Author Organization [facility] Address [address] [place] [address] Care Team Providers Name Role Phone Unavailable Primary Care Provider Unavailable Encounter Details Date Type Department Care Team Description 04/26/2010 Hospital Encounter [facility] INPT/OBSRV Cecil Tipton M.D. [address] [place], [place] [address] (Wo rk) Social History Tobacco Use Types Packs/Day Years Used Date Smoking Tobacco: Never Assessed Sex Assigned at Date Recorded Not on file documented as of this encounter Plan of Treatment Not on filedocumented as of this encounter Visit Diagnoses Not on filedocumented in this encounter
--- OUTSIDE RECORDS SUMMARY | 2022-06-02 15:06 | XMS_ITS | Encounter Summary ---
:1990 Author Organization [place] Address [address] [facility] [place] [address] Care Team Providers Name Role Phone No Ref-Primary, Physician Primary Care Provider [phone] Afsaneh Enciso DO Unavailable [phone] Reason for Visit Reason Comments Ultrasound YC6-Te-zzibiumt adrenal glan ds bilaterally Encounter Details Date Type Department Care Team Description 02/25/2022 Office Visit [facility] Jazmine Sanderson DO [address] [address] Suspected Maternal Pinky Cottrell MD [address] [place] [address] anomaly, antepartum, Medicine Center single or un specified Ashley fetus (Primary Dx) [address] [facility] [address] [place] [address] Social History Tobacco Use Types [...] Primary documented in this encounter Care Teams Barkeeper Relationship Specialty Start Date End Date No Ref-Primary, Physician PCP - General 01/27/22 Afsaneh Enciso DO Assigned OBGYN Provider 02/06/22 04/29/[address] [place] [address] documented as of this encounter
--- OUTSIDE RECORDS SUMMARY | 2022-06-02 15:06 | XMS_ITS | Encounter Summary ---
:1990 Author Organization [place] Address [facility] [place] [address] Care Team Providers Name Role Phone No Ref-Primary, Physician Primary Care Provider [phone] Afsaneh Enciso DO Unavailable [phone] Reason for Referral Diagnostic Imaging Ultrasound (Routine) - Pending Review Specialty Diagnoses / Procedures Referred By Contact Refer red To Contact Diagnoses Suspected anomaly, antepartum, single or unspecified fetus Afsaneh Enciso, Procedures [facility] US Comprehensive Single F/U DO [address] [place], [place] [address] Referral ID Status Reason Start Date Expiration Date Visits V isits Requested Authorized [id number] Pending 01/28/2022 01/28/2023 1 1 Review Reason for Visit Diagnostic Imaging Ultrasound (Routine) - Pending Review Specialty Diagnoses / Procedures Referred By Contact Refer red To Contact Diagnoses Suspected anomaly, antepartum, single or unspecified fetus Afsaneh Enciso, Procedures [facility] US Comprehensive Single F/U DO [address] [place], [place] [address] Referral ID Status Reason Start Date Expiration Date Visits V isits Requested Authorized [id number] Pending 01/28/2022 01/28/2023 1 1 Review Encounter Details Date Type Department Care Team Description 02/25/[address] [facility] Heather Sanderson DO [address] [place] [address] Suspected Maternal Pinky Cottrell MD [address] [place], [place] [id number] anomaly, [facility] antepartum, single [place] or unspecified [address] [facility] fetus [address] [place] [address] Social History Tobacco Use Types [...] Procedure Name Priority Date/Time Associated Comments Diagnosis [facility] US COMPREHENSIVE Routine 02/25/2022 8:31 AM Suspected feta l Results for this SINGLE F/U CDT anomaly, procedure are i n antepartum, single the resul ts or unspecified section. fetus documented in this encounter Results [facility] US Comprehensive Single F/U (02/25/2022 8:31 [...] LEOS Study Date: 02/25/2022 7:44am Pat. NO: [id number] Referring ??MD: ZACH METZGER Site: [facility] Account Clerk: Juliette Ocasio RD MS : 1990 Age: [...] lb 11 ? oz EFW by ?Hadlock ([id number]) Head / Face / Neck Biometry: Client Services Manager ? 5.6 ? mm CM ?6.1 ? mm ANATOMY Abdomen ? Right adrenal gland: prominent ? Left adrenal gland: prominent The following structures appear normal: Head / Neck ? Cranium. Head size. Head shape. Lateral ventricles. Midline falx. Cavum septi pellucidi. Cerebellum. Cisterna magna. Thalami. Face ? Lips. Profile. Nose. Heart / Thorax ?4-chamber view. RVOT view. LVOT view. 4-qkrgoo-rpgmjvs view. ? Diaphragm. Abdomen ? Stomach. Kidneys. [...] Pat. Name:Alejandro LEOS Date: 7:44am Pat. NO: [id number] :MARCO A METZGER [facility]Juliette Ocasio RDMS :1990Age:31 INDICATION Prominent adrenal [...] 1 lb 11 oz EFW by Hadlock ([id number]) Head / Face / Neck Biometry: Client Services Manager 5.6 mm CM 6.1 mm ANATOMY Abdomen Right adrenal gland: prominent Left adrenal gland: prominent The following structures appear normal: Head / Neck Cranium. Head size. Head sha pe. Lateral ventricles. Midline falx. Cavum septi pellucidi. Cerebellum. Cisterna magna. Thalami. Face Lips. Profile. Nose. Heart / Thorax 4-chamber view. RVOT view . LVOT view. 3-qbycij-djfsvxi view. Diaphragm. Abdomen Stomach. Kidneys. Bladder. Spine [...] fetus documented in this encounter Care Teams Hard Candy Spinner Relationship Specialty Start Date End Date No Ref-Primary, Physician PCP - General 01/27/22 Afsaneh Enciso DO Assigned OBGYN Provider 02/06/22 04/29/[address] [place] [address] [address] [place], [place] [address] documented as of this encounter
--- OUTSIDE RECORDS SUMMARY | 2022-06-02 15:06 | XMS_ITS | Encounter Summary ---
:1990 Author Organization [facility] Address [address] [place] [address] Care Team Providers Name Role Phone Unavailable Primary Care Provider Unavailable Encounter Details Date Type Department Care Team Description 03/31/[address] [facility] IN[facility]/OBSRV Nathalie Gerardo, P.A.-Zulema. [address] [place] [address] (Wo rk) Social History Tobacco Use Types Packs/Day Years Used Date Smoking Tobacco: Never Assessed Sex Assigned at Date Recorded Not on file documented as of this encounter Plan of Treatment Not on filedocumented as of this encounter Visit Diagnoses Not on filedocumented in this encounter"
== END 2022-06-02 14:46 | disposition home or self-care (01) ==
LOC: US 14:45
PROVIDERS: Visit Provider Advanced Practice Midwife
DX: O98.519 Other viral diseases complicating pregnancy, unspecified trimester (principal); U07.1 COVID-19
CPT/HCPCS: 76819

== ENCOUNTER 2022-06-05 07:45 | Outpatient (CLI) | payer OTHER, SELFPAY ==
[2022-06-05 08:08] VITALS: PULSE 108; RESP 18; TEMP 37.1; O2SAT 97
[2022-06-05 08:11] VITALS: BP 112/61; PULSE 107
--- NOTE | 2022-06-05 08:51 | CRLHL7_ITS ---
For Patients: As a result of the Century Cures Act, medical imaging exams and procedure reports are released immediately into your electronic medical record. You may view this report before your referring provider. If you have questions, please contact your health care provider. CLINICAL HISTORY: Nonreactive NST TECHNIQUE: Real time villar scale imaging of the fetus was performed as well as color Doppler and spectral Doppler analysis of the umbilical artery. FINDINGS: Sonographic imaging demonstrates a single living intrauterine gestation. Fetus demonstrates a regular cardiac rate of 155 beats per minute. Fetus has a vertex orientation. Single deepest vertical pocket: 10.4 cm. The fetus was active however did not demonstrate normal breathing movements. There was normal flexion and extension of the trunk and extremities. IMPRESSION: 1. Biophysical profiles assessment of 6 of 8. 2. Single deepest pocket 10.4 cm reflecting polyhydramnios Dictated by Sil Ramos MD @ 06/05/2022 10:56:37 AM (Electronically Signed)
[2022-06-05] MEDS: LACTATED RINGERS 1000 ML 1,000 ML IV (09:07)
[2022-06-05 10:20] VITALS: BP 105/62; PULSE 108
--- NOTE | 2022-06-05 15:38 | PC.OBNST ---
NST Note NST Note Start: 06/05/22 08:36 Freq: ONCE Status: Active Protocol: Document 06/05/22 14:00 JRAminata (Rec: 06/05/22 15:37 JRAminata [id number]) NST Note 3 Para (# of births) 2 EDC 06/13/22 Gestational Age In Weeks & Days 38 Weeks & 6 Days Patient Presented with Complaint(s) of Headache Other Complaints Per pt. the baby is moving well. Entire EFM strip reviewed by Dr. Saxena before MD gave discharge order. MD aware EFM strip has not been reactive. MD ordered BPP and NST for tomorrow. Reactive No Appropriate for Gestational Age No ABIEL Bello RN Date 06/05/22 Reactive No Appropriate for Gestational Age No ABIEL Nava RN OB NST charge Yes Complete NST Note via Write Note Yes The provider's electronic signature indicates the NST is reactive/appropriate for gestational age. *Note to provider: If an addendum is required, open the patient's chart and click on the note under the Nurse/Allied Health tab.
== END 2022-06-05 11:30 | disposition home or self-care (01) ==
LOC: OB OUT 07:46 → OB 07:46
PROVIDERS: Visit Provider Obstetrics & Gynecology
DX: O36.8130 Decreased fetal movements, third trimester, not applicable or unspecified (principal); O40.3XX0 Polyhydramnios, third trimester, not applicable or unspecified; R51.9 Headache, unspecified; Z3A.38 38 weeks gestation of pregnancy
CPT/HCPCS: 59025; 76819; 96360; 99213; J7120

== ENCOUNTER 2022-06-06 08:48 | Outpatient (CLI) | payer OTHER, SELFPAY ==
--- OUTSIDE RECORDS SUMMARY | 2022-06-06 08:51 | XMS_ITS | Encounter Summary ---
:1990 Author Organization [facility] Address [address] [place] [address] Care Team Providers Name Role Phone Judi Strickland APRN, C.N.P., D.N.P. Primary Care Provider Reason for Visit Reason Comments Patient Education Encounter Details Date Type Department Care Team Description 12/21/2021 Clinical Communication Department of Maris Francisco Education Infusion Therapy in [place], [address] [place], [place] [address] [facility] [address] [address] [place] [phone] Social History Tobacco Use Types Packs/Day Years [...] Education Information Discussed Covid:consent for Bebtelovimab at [place] PLAN Disposition/Recommendation: patient transferred to the appointment desk Information/Education: patient/caller able to teach back Caller agreeable to plan of care: yes The following references were used: nursing clinical judgement and other monoclonal education Hi, my name is Carmen Francisco R.N. from [facility] with a recommendation that you receive [...] the treatment of mild COVID-19. [facility] supports this treatment for certain people. I am happy to share with you that since August 2020 [facility] has infused over 23, 000 patients with a monoclonal antibody infusion across our [place] sites. I am sharing this because we [...] illnesses ??? Are taking any medications (prescription, kmul-kuw-ssqquhi, vitamins, and herbal products) How will I [...] to treat people with COVID-19. Go to https://www.efhyq00iwhqfenvudqsbaxthtb.nih.gov/ for information on the emergency use of [...] risk from the treatment. The [facility] Obstetrics and Gynecology teamsupports the use [...] has been reached. Report side effects to [employer] at www.fda.gov/medAito Technologiestch, call 9-272-CUK-4586. How can I learn more? Ask your healthcare provider ??? Visit https://www.qtsnu03yilirkptwsjyoleqawf.nih.gov/ ??? Contact your local or state public health department Would you like to learn more about what an Emergency Use Authorization (EUA)?Yes; The [place] FDA has made these monoclonal antibody infusions available under an emergency access mechanism calledan EUA. The EUA is supported by a [place] of Health and Human Service (HHS) declaration that circumstances exist to justify the emergency use of drugs and biological products during the COVID-19 pandemic. What is the cost for this medication? The medication is provided to [facility] at no charge and there is no cost of the medication to youthe patient. Any associated costs with the infusion will be billed to the patient's insurance company. [place] does not want cost to be a [...] will be provided to patient/caregiver at the [facility]. Remote Patient Monitoring: System Calculated MASS Score: [...] the isolation and quarantine requirements outlined by [facility] health department. All isolation periods are [...] Infection Onset Date Last Indicated Resolved Time [id number]: Symptom onset 12/21/2021 12/21/2021 5:38 AM CDT 12/18/21 documented as of this encounter Care Teams Furnace Converter Relationship Specialty Start Date End Date Judi Strickland APRN, C.N.P., D.N.P. PCP - General 07/25/[id number] [place] [phone] documented as of this encounter
--- OUTSIDE RECORDS SUMMARY | 2022-06-06 08:51 | XMS_ITS | Clinical Summary ---
:1990 Author Organization [facility] Address [address] [place] [address] Care Team Providers Name Role Phone Judi Strickland APRN, C.N.P., D.N.P. Primary Care Provider Source Comments Patient records contain information from all sites at [facility]. For routine questions regarding patient records, call [phone] during business hours, M-F 8:00 AM - 5:00 PM Central Time. Record requests for emergency care only can be directed to [phone] at any time.[facility] Allergies No known active allergies Medications Medication [...] (173 lb 8 oz) 10/11/2017 4:29 PM PORTFOLIO DIRECTOR Height 167.6 cm (5' 6) 09/15/2017 11:20 AM PORTFOLIO DIRECTOR Body Mass Index 28 09/15/2017 11:20 AM PORTFOLIO DIRECTOR Plan of Treatment Health Maintenance Due Date [...] ype Group Dates [place] [employer] [id number] 2018-Prese [address] [employer] Medicaid H[place] C[address] [facility] [place] [address] Care Teams Slitting And Shipping Supervisor Relationship Specialty Start Date End Date Judi Strickland, GRIS, C.N.P., D.N.P. PCP - General 07/25/[id number] [place] [address] [place] [phone]
--- OUTSIDE RECORDS SUMMARY | 2022-06-06 08:51 | XMS_ITS | Encounter Summary ---
:1990 Author Organization [facility] Address [address] [place] [address] Care Team Providers Name Role Phone Judi Strickland APRN C.N.P., D.N.P. Primary Care Provider Reason for Referral Outpatient (Routine) - Authorized Specialty Diagnoses / Procedures Referred By Contact Refer red To Contact Family Medicine Judi Strickland APRN, [facility] C.N.P., D.N.P. [address] [place] [phone] Referral ID Status Reason Start Date Expiration Date Visits V isits Requested Authorized [id number] Authorized 03/08/2022 03/08/2023 1 1 Encounter Details Date Type Department Care Team Description 03/08/2022 Orders Only [facility] SEM[facility] PCP TH EMILIANOT Sa marshall Givens M.D. [address] [place], [place] [phone] (Wo rk) Social History Tobacco Use Types Packs/Day Years Used Date Smoking Tobacco: Never Smokeless Tobacco: Never Sex Assigned at Date Recorded Not on file documented as of this encounter Plan of Treatment Scheduled Referrals Name Type Priority Associated Diagnoses [facility] Outpatient Referral Routine Expec jacob: office visit 03/22/2022, (clinic) Expires: 09/04/2022 documented as of this encounter Visit Diagnoses Not on filedocumented in this encounter Care Teams Car Rental Agent Relationship Specialty Start Date End Date Judi Strickland APRN, C.N.P., D.N.P. PCP - General 07/25/[address] [address] documented as of this encounter
--- OUTSIDE RECORDS SUMMARY | 2022-06-06 08:51 | XMS_ITS | Encounter Summary ---
:1990 Author Organization [facility] Address [address] [place] [address] Care Team Providers Name Role Phone Judi Strickland APRN, C.N.P., D.N.P. Primary Care Provider Encounter Details Date Type Department Care Team Description 11/10/2021 Hospital Encounter Department of Laboratory [place], Medicine in [place], P.A.-[address] [address] [phone] (Wo rk) Social History Tobacco Use Types [...] COVID19 Pending 11/09/2021 11/10/2021 11/11/2021 7:23 AM AOC OPERATIONS INTELLIGENCE OFFICER documented as of this encounter Care Teams Auxiliary Powerplant Operator Relationship Specialty Start Date End Date Judi Strickland APRN, C.N.P., D.N.P. PCP - General 07/25/[address] [place] [address] EMILIANO Madrigal [phone] documented as of this encounter
--- OUTSIDE RECORDS SUMMARY | 2022-06-06 08:51 | XMS_ITS | Encounter Summary ---
:1990 Author Organization [facility] Address [address] [place] [address] Care Team Providers Name Role Phone Judi Strickland APRN, C.N.P., D.N.P. Primary Care Provider Reason for Visit Reason Comments Outpatient Infusion Episode Based Medications (Routine) - Closed Specialty Diagnoses / Procedures Referred By Contact Refer red To Contact Diagnoses COVID-19 Infection Gustavo Abbott [facility] Inf Surge Cacf Procedures [place] INJECTION, BEBTELOVIMAB, 175MG Meron Isaac, M.P.H. [address] [place] [address] [address] [place] [phone] Referral ID Status Reason Start Date Expiration Date Visits Requ ested Visits Authorized [id number] Closed 12/21/2021 12/21/2022 1 1 Encounter Details Date Type Department Care Team Description 12/22/2021 Infusion Department of Infusion Scar COVID-19 Infection Therapy in [place] Gustavo Isaac M.D., (Primary Dx) [place], [place] M.P.H. [address] [place] [address] [address] [place] [phone] Social History Tobacco Use [...] at 1200, For 1 dose, Patient/caregiver factsheet: https://www.fda.gov/media/387721/ download Preparation: Remove vial from refrigerated storage [...] Infection Onset Date Last Indicated Resolved Time [id number]: Symptom onset 12/21/2021 12/21/2021 5:38 AM CDT 12/18/21 documented as of this encounter Care Teams Powderer Relationship Specialty Start Date End Date Judi Strickland APRN, C.N.P., D.N.P. PCP - General 07/25/[address] [place] [phone] documented as of this encounter
--- OUTSIDE RECORDS SUMMARY | 2022-06-06 08:51 | XMS_ITS | Encounter Summary ---
:1990 Author Organization [facility] Address [address] [place] [address] Care Team Providers Name Role Phone Judi Strickland APRN, C.N.P., D.N.P. Primary Care Provider Reason for Visit Appointment Request (Routine) - Closed Specialty Diagnoses / Procedures Referred By Contact Refer red To Contact Family Medicine Referral ID Status Reason Start Date Expiration Date Visits Requ ested Visits Authorized [id number] Closed 12/21/2021 12/21/2022 1 1 Encounter Details Date Type Department Care Team Description 12/21/2021 Internal E-Consult Department of Family Mehnaz Chong OVID-19 Infection Medicine, Center [address]. (Primary Dx) Street Professional [address] [facility] in [facility], [address] [place] [address] [place], [place] [phone] (Work) Social History Tobacco Use Types Packs/Day Years Used Date Smoking Tobacco: Never Smokeless Tobacco: Never Sex Assigned at Date Recorded Not on file documented as of this encounter Consult Notes Mehnaz Chong, D.OAnia - 12/21/2021 11:00 AM CDT E-Consult for Request for Outpatient Treatment for Acute Covid-19 Ms. Felix tested positive for COVID-19. The Covid-19 Infection flag in the [facility] Chart has been updated. [facility], in collaboration with the [place] [facility] of [facility], is currently able to offer Carol [...] order the appropriate therapy. Mehnaz Chong D.O. Julian COVID Care Team [facility] -Eligibility for treatment requires [...] Primary documented in this encounter Care Teams Financial Recording Clerk Relationship Specialty Start Date End Date Judi Strickland APRN, C.N.P., D.N.P. PCP - General 07/25/[address] [place] [phone] documented as of this encounter
--- OUTSIDE RECORDS SUMMARY | 2022-06-06 08:52 | XMS_ITS | Encounter Summary ---
:1990 Author Organization [facility] Address [address] [place] [address] Care Team Providers Name Role Phone Unavailable Primary Care Provider Unavailable Encounter Details Date Type Department Care Team Description 12/30/2011 Hospital Encounter HX [facility] Carol Mendes M.D. Social History Tobacco Use [...] MARVA DUARTE - 12/30/2011 15:32 CDT Source: [facility] POWERCHART Document Id: [id number] CDT!7 documented in this encounter Nursing Notes [...] MARVA DUARTE - 12/30/2011 15:26 CDT Source: [employer] POWERCHART Document Id: [id number] CDT!14 documented in this encounter Plan of Treatment Not on filedocumented as of this encounter Visit Diagnoses Not on filedocumented in this encounter
--- OUTSIDE RECORDS SUMMARY | 2022-06-06 08:52 | XMS_ITS | Encounter Summary ---
:1990 Author Organization [facility] Address [address] [place] [address] Care Team Providers Name Role Phone Judi Strickland APRN, C.N.P., D.N.P. Primary Care Provider Encounter Details Date Type Department Care Team Description 01/19/2021 Orders Only [facility] PCP [facility] Sa marshall Givens M.D. [address] [place], [place] [phone] (Wo rk) Social History Tobacco Use Types Packs/Day Years Used Date Smoking Tobacco: Never Smokeless Tobacco: Never Sex Assigned at Date Recorded Not on file documented as of this encounter Plan of Treatment Not on filedocumented as of this encounter Visit Diagnoses Not on filedocumented in this encounter Care Teams Dye Range Operator Cloth Relationship Specialty Start Date End Date Judi Strickland APRN, C.N.P., D.N.P. PCP - General 07/25/[address] [place] [address] EMILIANO Madrigal [phone] documented as of this encounter
--- OUTSIDE RECORDS SUMMARY | 2022-06-06 08:52 | XMS_ITS | Encounter Summary ---
:1990 Author Organization [facility] Address [address] [place] [address] Care Team Providers Name Role Phone Seda Solis P.A.-C. Primary Care Provider Encounter Details Date Type Department Care Team Description 09/11/2018 Clinical Communication Department of [facility] Mary Solis [facility] [place] Cris Beard [facility], [id number] [place] [address] [phone] (Work) [phone] Social History Tobacco Use Types Packs/Day Years Used Date Smoking Tobacco: Never Smokeless Tobacco: Never Sex Assigned at Date Recorded Not on file documented as of this encounter Plan of Treatment Not on filedocumented as of this encounter Visit Diagnoses Not on filedocumented in this encounter Care Teams Mental Health Specialist Relationship Specialty Start Date End Date Seda Solis P.A.-C. PCP - General Family Medicine 06/27/18 07/24/19 documented as of this encounter
--- OUTSIDE RECORDS SUMMARY | 2022-06-06 08:52 | XMS_ITS | Encounter Summary ---
:1990 Author Organization [facility] Address [address] [place] [address] Care Team Providers Name Role Phone Elsewhere, Pcp Primary Care Provider Unavailable Encounter Details Date Type Department Care Team Description 10/12/2017 Hospital Encounter [facility] in [place], [place] C.N.P., D.N.P. [address] [facility] [address] [place] [phone] Social History Tobacco Use Types Packs/Day [...] this OR BILIARY DUCTS (most inpatients AM MERCHANDISE DISPLAYER Quadrant procedu re are in and all the results outpatients) section. documented in this encounter Results US Gallbladder (10/12/2017 9:15 AM MERCHANDISE DISPLAYER) Anatomical Region Laterality Modality Abdomen N/A Ultrasound Specimen (Source) Anatomical Collection Method Collection Time Re ceived Time Location / / Volume Laterality 10/12/2017 9:25 AM MERCHANDISE DISPLAYER Impressions 10/12/2017 9:25 AM MERCHANDISE DISPLAYER IMPRESSION: Normal gallbladder ultrasoun d. Narrative 10/12/2017 9:25 AM MERCHANDISE DISPLAYER EXAM: US GALLBLADDER COMPARISON: None FINDINGS: Gallbladder: [...] Quadrant documented in this encounter Care Teams Accountant Tax Relationship Specialty Start Date End Date Elsewhere, Pcp PCP - General Family Medicine 09/05/17 06/26/18 documented as of this encounter
--- OUTSIDE RECORDS SUMMARY | 2022-06-06 08:52 | XMS_ITS | Encounter Summary ---
:1990 Author Organization [facility] Address [address] [place] [address] Care Team Providers Name Role Phone Unavailable Primary Care Provider Unavailable Encounter Details Date Type Department Care Team Description 04/01/2015 Hospital Encounter [facility]X [facility] [place] Anne-Marie Ricardo APRN, C.N.P., D. N.P. [address] [place] [phone] (Wo rk) Social History Tobacco Use [...] APRN, C.N.P. - 04/01/2015 12:25 PM CDT [id number] CHIEF COMPLAINT/REASON FOR VISIT Cough. HISTORY OF [...] GarciaNAniaPAnia/radha Electronically Signed By: ANNE-MARIE RICARDO RN, 2 YEAR OLDS PRESCHOOL TEACHER On: 04/08/2015 08:24 AM Source: [facility] MHSDOLBEYNED Document Id: [id number] documented in this encounter Miscellaneous Notes Miscellaneous - Anne-Mraie Ricardo APRN, C.N.P. - 04/01/2015 12:56 PM CDT Ambulatory Patient Summary [address] 24 [facility] Keith P[place] [id number] Visit Information Name: ARIS LEOS [facility] Number: [id number] Current Date: 04/01/2015 12:56:08 Physicians Attending Provider: ANNE-MARIE RICARDO RN, THERESA Primary Care Provider: ANNE-MARIE RICARDO RN, 2 YEAR OLDS PRESCHOOL TEACHER ARIS LEOS has been given the following [...] day x 14 day(s) New Routed to [address] [place] [address] fexofenadine-pseudoephedrine (Keyla-D 12 Hour 60 mg-120 mg [...] Youll be asked for your [facility] number which you can find at the top of this document. Your Goals/Additional instructions: Source: [facility] POWERCHART Document Id: [id number] Miscellaneous - Anne-Marie Ricardo APRN, C.N.P. - 04/01/2015 12:56 PM CDT Ambulatory Discharge Medication List [address] [id number] Visit Information Name: SANDRA LEOSLEY LELIA [facility] Number: [id number] Visit Date: 04/01/2015 12:56:07 Attending Provider: ANNE-MARIE RICARDO RN, 2 YEAR OLDS PRESCHOOL TEACHER Primary Care Provider: ANNE-MARIE RICARDO RN, 2 YEAR OLDS PRESCHOOL TEACHER DAFNEARIS has been given the following list [...] day x 14 day(s) [facility] [address] [address] fexofenadine-pseudoephedrine (Keyla-D 12 Hour 60 mg-120 mg [...] emergency. Electronically Signed By: ANNE-MARIE RICARDO RN, 2 YEAR OLDS PRESCHOOL TEACHER Signed On:01-APR-2015 12:56:03 Additional Information: Source: [facility] POWERCHART Document Id: [id number] Miscellaneous - Dewey Duong LAniaPAniaNAnia - 04/01/2015 12:31 PM CDT Adult Inspector Mechanical Intake/History Adult Inspector Mechanical Intake/History Entered On: 04/01/2015 12:33 CDT Performed [...] 04/01/2015 12:31 CDT General Info Languages : [place] Citizen Is Patient Female and 13-50 no hysterectomy [...] DUONG LPN - 04/01/2015 12:31 CDT [facility] Document Id: [id number] CDT!13 documented in this encounter Plan of Treatment Not on filedocumented as of this encounter Visit Diagnoses Not on filedocumented in this encounter
--- OUTSIDE RECORDS SUMMARY | 2022-06-06 08:52 | XMS_ITS | Encounter Summary ---
:1990 Author Organization [facility] Address [address] [place] [address] Care Team Providers Name Role Phone Judi Strickland APRN, C.N.P., D.N.P. Primary Care Provider Encounter Details Date Type Department Care Team Description 11/10/2021 Admin Visit Department of Family Judi Strickland AP RN, Medicine, [facility], C.N.P ., D.N.P. in [address] [phone] (Wo rk) Social History Tobacco Use Types [...] Pending 11/09/2021 11/10/2021 11/11/2021 7:23 AM SENIOR GOVERNMENT PROGRAM ANALYST documented as of this encounter Care Teams Diesel Dinkey Operator Relationship Specialty Start Date End Date Judi Strickland APRN, C.N.P., D.N.P. PCP - General 07/25/[address] [place] [phone] documented as of this encounter
--- OUTSIDE RECORDS SUMMARY | 2022-06-06 08:52 | XMS_ITS | Encounter Summary ---
:1990 Author Organization [facility] Address [address] [place] [address] Care Team Providers Name Role Phone Unavailable Primary Care Provider Unavailable Encounter Details Date Type Department Care Team Description 12/14/2016 Hospital Encounter [facility] [place] Sandra Baer APRN, C.N.P., D. N.P. [address] [place] [phone] (Wo rk) Social History Tobacco Use [...] No itching. She reports trying Boil Ease pibm-hnf-kwftrzy, without any improvement of symptoms. She is [...] # 21 cap(s), 0 Refill(s), Acute, Pharmacy: [email or web address] Est Pt Level 3 - 78442 - 15 min 2. Tachycardia NOS Stable. [...] C.N.P., JameN.P On: 12/14/2016 01:49 PM [facility] Document Id: [id number] documented in this encounter Miscellaneous Notes Telephone [...] From: SUZANNE BAER APRN, C.NAniaPAnia, D.N.P To: [place] Family Medicine Nurse Mayra; Sent: 12/14/2016 14:42:25 CDT Subject: RE: *Phone Message Keflex suspension was sent to [address] 3x/day for 7 days. Thanks. Addendum by TAVIA SAL LPN on December 14, 2016 14:23:06 CDT From: TAVIA SAL LPN ([place] Family Medicine Nurse Mayra) To: SUZANNE BAER APRN, C.N.P., D.N.P; Sent: 12/14/2016 14:23:06 CDT Subject: FW: *Phone Message Addendum by TAVIA SAL LPN on December 14, 2016 14:22:54 CDT please advise on change of medication. From: KENNETH BROWER To: [place] Family Medicine Nurse Mayra; Sent: 12/14/2016 14:19:32 [...] (howto dispose of them properly.) Return number: [phone] Message: Advice/Action: Source used: ( ) Verbalizes [...] back cell phone number ( ) Source: [facility] Flayr Document Id: [id number] Miscellaneous - Suzanne Baer APRN, C.N.P., D.N.P. - 12/14/2016 1:32 PM CDT Ambulatory Discharge Medication List [address] [id number] Visit Information Name: ARIS LEOS [facility] Number: [id number] Current Date: 12/14/2016 13:32:16 [...] x 7 day(s) cellulitis New Routed to [address] [place] [address] Stop Taking the Following Medications: Medication list [...] D.N.P Signed On:14-DEC-2016 13:32:14 Additional Information: Source: [facility] POWERCHART Document Id: [id number] Miscellaneous - Suzanne Baer APRN, C.N.Jie., D.N.P. - 12/14/2016 1:32 PM CDT Ambulatory Patient Summary [address] [place] [id number] Visit Information Name: ARIS LEOS [facility] Number: [id number] Current Date: 12/14/2016 13:32:17 [...] x 7 day(s) cellulitis New Routed to [address] [address] Stop Taking the Following Medications: Medication list [...] if you dont have one. Go to [email or web address] and click on Create Your Account. Then, follow the directions to complete the online form. Youll be asked for your [facility] number which you can find at the top of this document. Your Goals/Additional instructions: Source: [facility] POWERCHART Document Id: [id number] Miscellaneous - Tavia Sal L.P.N. - 12/14/2016 1:14 PM CDT Adult Finishing Room Supervisor Intake/History Adult Finishing Room Supervisor Intake/History Entered On: 12/14/2016 13:18 CDT [...] 12/14/2016 13:14 CDT General Info Languages : Marshallese Is Patient Female and 13-50 no hysterectomy [...] SAL LPN - 12/14/2016 13:14 CDT Source: [employer] Document Id: [id number] CDT!44 documented in this encounter Plan of Treatment Not on filedocumented as of this encounter Visit Diagnoses Not on filedocumented in this encounter
--- OUTSIDE RECORDS SUMMARY | 2022-06-06 08:52 | XMS_ITS | Encounter Summary ---
:1990 Author Organization [facility] Address [address] [place] [address] Care Team Providers Name Role Phone Unavailable Primary Care Provider Unavailable Encounter Details Date Type Department Care Team Description 01/05/2011 Hospital Encounter [facility] [place] Ofelia Ricardo APRN, C.N.P., D. N.P. [address] [place] [phone] (Wo rk) Social History Tobacco Use Types Packs/Day Years Used Date Smoking Tobacco: Never Assessed Sex Assigned at Date Recorded Not on file documented as of this encounter Progress Notes Ofelia Ricardo APRN, C.N.P. - 01/05/2011 12:00 AM CDT [id number] CHIEF COMPLAINT/REASON FOR VISIT: 1. Is vaginal [...] /jak Electronically Signed By: OFELIA RICARDO RN, [facility] On: 01/05/2011 11:52 Source: [facility] MHSDOLBEYNONRADSYS Document Id: [id number] documented in this encounter Miscellaneous Notes Miscellaneous - Lesley Ledesma LAniaPAniaNAnia - 01/05/2011 8:12 AM CDT Adult Bearing Press Machine Operator Intake/History Adult Bearing Press Machine Operator Intake/History Entered On: 01/05/2011 8:15 CDT Performed [...] Tobacco Smoke: Patient smokes JOSE, LESLEY Nicole FOOD HANDLER - 01/05/2011 8:12 CDT Tobacco Use Grid Type: Cigarettes Cigarette Use Packs/Day: 0.5 Last Use: 10 min ago LESLEY GARCIA [facility] - 01/05/2011 8:12 CDT Alcohol Use: No LESLEY GARCIA FOOD HANDLER - 01/05/2011 8:12 CDT Caffeine Use Grid Caffeine Use: Current Type: Soft drinks Frequency: Weekly Amount: 2 cans Last Use: 11am LESLEY GARCIA FOOD HANDLER - 01/05/2011 8:12 CDT Recreational Drug Use Grid Drug Use: None LESLEY GARCIA FOOD HANDLER - 01/05/2011 8:12 CDT Allergies Allergies (Active) NKA Estimated Onset Date: Unspecified ; Created By: CATHLEEN KURTZ LPN; Reaction Status: Active ;Category: Drug ; Substance: NKA ; Type: Allergy ; Updated By: CATHLEEN KURTZ LPN; Reviewed Date: 01/05/2011 8:11 CDT Source: [employer] Document Id: [id number] CDT!35 documented in this encounter Plan of Treatment Not on filedocumented as of this encounter Visit Diagnoses Not on filedocumented in this encounter
--- OUTSIDE RECORDS SUMMARY | 2022-06-06 08:52 | XMS_ITS | Encounter Summary ---
:1990 Author Organization [facility] Address [address] [place] [address] Care Team Providers Name Role Phone Unavailable Primary Care Provider Unavailable Encounter Details Date Type Department Care Team Description 01/27/2011 Hospital Encounter HX [facility] Deedee Bobby, GRIS, C.N.P., D.N.P. [address] [place], [place] [phone] (Wo rk) Social History Tobacco Use Types Packs/Day Years Used Date Smoking Tobacco: Never Assessed Sex Assigned at Date Recorded Not on file documented as of this encounter Plan of Treatment Not on filedocumented as of this encounter Visit Diagnoses Not on filedocumented in this encounter
--- OUTSIDE RECORDS SUMMARY | 2022-06-06 08:52 | XMS_ITS | Encounter Summary ---
:1990 Author Organization [facility] Address [address] [place] [address] Care Team Providers Name Role Phone Unavailable Primary Care Provider Unavailable Encounter Details Date Type Department Care Team Description 12/30/2011 Hospital En[facility] [place] Carol Mendes M.D. Social History Tobacco Use Types Packs/Day Years Used Date Smoking Tobacco: Never Assessed Sex Assigned at Date Recorded Not on file documented as of this encounter Plan of Treatment Not on filedocumented as of this encounter Visit Diagnoses Not on filedocumented in this encounter
--- OUTSIDE RECORDS SUMMARY | 2022-06-06 08:52 | XMS_ITS | Encounter Summary ---
:1990 Author Organization [facility] Address [address] [place] [address] Care Team Providers Name Role Phone Unavailable Primary Care Provider Unavailable Encounter Details Date Type Department Care Team Description 12/16/[address] [facility] [place] Brenna Craig, GRIS, C.N.P., D. N.P. [address] [place] [address] (Wo rk) Social History Tobacco Use Types Packs/Day Years Used Date Smoking Tobacco: Never Assessed Sex Assigned at Date Recorded Not on file documented as of this encounter Progress Notes Brenna Craig, D.N.P., C.N.P. - 12/16/2010 12:00 AM CDT [id number] CHIEF COMPLAINT/REASON FOR VISIT Sore throat. HISTORY [...] CRAIG DNP, FNP On: 12/16/2010 11:54 Source: [facility] MHSDOLBEYNONRADSYS Document Id: [id number] documented in this encounter Miscellaneous Notes Miscellaneous - Brenna Craig D.N.P., C.N.P. - 12/16/2010 10:06 AM CDT Ambulatory Patient Summary [facility] [address] [facility] [place] [address] Visit Information Name: ARIS LEOS Current Date: [...] No Appointments found Your Goals/Additional instructions: Source: [facility] POWERCHART Document Id: [id number] Miscellaneous - Brenna Craig D.N.P., C.N.P. - 12/16/2010 10:06 AM CDT Ambulatory Depart Summary [facility] [address] [place] [address] Visit Information Name: ARIS LEOS Current Date: [...] to the patient and/or family, guardian/caregiver. Source: [facility] POWERCHART Document Id: [id number] Electronically signed by Anastacia [facility] Nutrition Teacher [id number] at 03/05/2017 5:50 PM CDT Miscellaneous - Lesley Ledesma, L.P.N. - 12/16/2010 9:26 AM CDT Adult Waste Picker Intake/History Adult Waste Picker Intake/History Entered On: 12/16/2010 9:29 CDT Performed On: 12/16/2010 9:26 CDT by LESLEY GARCIA SENIOR WINDOWS SYSTEMS ENGINEER Intake Chief Complaint: cold since yesterday sore throat chills Temperature Core: 37.1C(Converted to: 98.8DegF) Peripheral Pulse Rate: 102/min (HI) Respiratory Rate: 14/min Systolic Blood Pressure: 110mmHg Diastolic Blood Pressure: 64mmHg NIBP Mean: 79mmHg BP Location: Left upper extremity Heart Rhythm: Regular Actual Weight: 65.400kg(Converted to: 144lb 3oz) Weight Source: Standing scale Dosing Weight Clinic: 65.40kg JOSE, LESLEY Nicole [facility] - 12/16/2010 9:26 CDT Subjective Pain Symptoms: Yes JOSE LESLEY Nicole SENIOR WINDOWS SYSTEMS ENGINEER - 12/16/2010 9:26 CDT Pain Pain Assessment Grid Pain 1 Location: Throat Intensity: 8 JOSE, LESLEY Nicole [facility] - 12/16/2010 9:26 CDT Dependent Habits Tobacco Use/Currently Using: Yes Exposure to Tobacco Smoke: Patient smokes JOSE LESLEY Nicole [facility] - 12/16/2010 9:26 CDT Tobacco Use Grid Type: Cigarettes Cigarette Use Packs/Day: 0.5 Last Use: 10 min ago LESLEY GARCIA [facility] - 12/16/2010 9:26 CDT Alcohol Use: No LESLEY GARCIA [facility] - 12/16/2010 9:26 CDT Caffeine Use Grid Caffeine Use: Current Type: Soft drinks Frequency: Weekly Amount: 2 cans Last Use: 11am LESLEY GARCIA [facility] - 12/16/2010 9:26 CDT Recreational Drug Use Grid Drug Use: None LESLEY GARCIA [facility] - 12/16/2010 9:26 CDT Allergies Allergies (Active) NKA Estimated Onset Date: Unspecified ; Created By: CATHLEEN KURTZ LPN; Reaction Status: Active ;Category: Drug ; Substance: NKA ; Type: Allergy ; Updated By: CATHLEEN KURTZ LPN; Reviewed Date: 12/16/2010 9:25 CDT [facility] Document Id: [id number] CDT!40 documented in this encounter Plan of Treatment Not on filedocumented as of this encounter Visit Diagnoses Not on filedocumented in this encounter
--- OUTSIDE RECORDS SUMMARY | 2022-06-06 08:52 | XMS_ITS | Encounter Summary ---
:1990 Author Organization [facility] Address [address] [place] [address] Care Team Providers Name Role Phone Judi Strickland APRN, C.N.P., D.N.P. Primary Care Provider Encounter Details Date Type Department Care Team Description 06/08/2021 Orders Only [facility] Judi Strickland APRN, C.N.P., D.N.P. [address] [place] [address] [place] [phone] (Wo rk) Social History Tobacco Use Types Packs/Day Years Used Date Smoking Tobacco: Never Smokeless Tobacco: Never Sex Assigned at Date Recorded Not on file documented as of this encounter Plan of Treatment Not on filedocumented as of this encounter Visit Diagnoses Not on filedocumented in this encounter Care Teams Exhibit Specialist Relationship Specialty Start Date End Date Judi Strickland APRN, C.N.P., D.N.P. PCP - General 07/25/[id number] [place] [phone] documented as of this encounter
--- OUTSIDE RECORDS SUMMARY | 2022-06-06 08:52 | XMS_ITS | Encounter Summary ---
:1990 Author Organization [facility] Address [address] [place] [address] Care Team Providers Name Role Phone Unavailable Primary Care Provider Unavailable Encounter Details Date Type Department Care Team Description 02/15/2011 Hospital Encounter [facility] [place] Brenna Craig, GRIS, Zulema.N.P., D. N.P. [address] [place] [address] (Wo rk) Social History Tobacco Use Types Packs/Day Years Used Date Smoking Tobacco: Never Assessed Sex Assigned at Date Recorded Not on file documented as of this encounter Progress Notes Brenna Craig, D.N.P., C.N.P. - 02/15/2011 12:00 AM CDT [id number] CHIEF COMPLAINT/REASON FOR VISIT Nausea and diarrhea. [...] that she has not been taking any nekn-nvt-zngramg medications to help with her symptoms and [...] equal, round and reactive to light.. OROPHARYNX: Jackson and moist. TMs: Bilateral tympanic membranes are [...] DNP, FNP On: 02/15/2011 04:43 PM Source[facility] Document Id: [id number] documented in this encounter Miscellaneous Notes Miscellaneous - Brenna Craig D.N.P., C.N.P. - 02/15/2011 11:52 AM CDT Ambulatory Patient Summary [facility] - [address] [address] Visit Information Name: ARIS LEOS Current Date: 02/15/2011 11:51:57 Primary Care Provider: OFELIA RICARDO RN, TOUCH UP EDGER Your Medications Here is a list of [...] No Appointments found Your Goals/Additional instructions: Source: [employer] Document Id: [id number] Miscellaneous - Brenna Craig D.N.Jie., C.N.P. - 02/15/2011 11:51 AM CDT Ambulatory Depart Summary [facility] - [address] [address] Visit Information Name: ARIS LEOS Current Date: 02/15/2011 11:51:57 Primary Care Provider: OFELIA RICARDO RN, TOUCH UP EDGER ARIS LEOS LELIA has been given the [...] to the patient and/or family, guardian/caregiver. Source: [employer] Document Id: [id number] Miscellaneous - Anastacia, Historical Provider Ser - 02/15/2011 11:05 AM CDT Pediatric Postmaster Intake/History Pediatric Postmaster Intake/History Entered On: 02/15/2011 11:08 CDT Performed [...] LPN; Reviewed Date: 02/15/2011 11:04 CDT Source: [facility] [employer] Document Id: [id number] CDT!36 documented in this encounter Plan of Treatment Not on filedocumented as of this encounter Visit Diagnoses Not on filedocumented in this encounter
--- OUTSIDE RECORDS SUMMARY | 2022-06-06 08:52 | XMS_ITS | Encounter Summary ---
:1990 Author Organization [facility] Address [address] [place] [address] Care Team Providers Name Role Phone Judi Strickland APRN, C.N.P., D.N.P. Primary Care Provider Reason for Visit Reason Onset Date Comments Outpatient COVID-19 Testing 01/16/2020 Encounter Details Date Type Department Care Team Description 01/16/2020 External Outreach Department of [facility] Leann Garrido [facility] Medicine, [place] Lona PAniaARamakrishna Respiratory (Primary Clinic, in [place], [address] Dx) [place], [place] [address] [address] [place], [place] [phone] (Work) [phone] Social History Tobacco Use Types Packs/Day Years Used Date Smoking Tobacco: Never Smokeless Tobacco: Never Sex Assigned at Date Recorded Not on file documented as of this encounter Progress Notes Del Garrido P.A.[employer] - 01/16/2020 4:19 PM CDT Encounter created [...] SARS Coronavirus-2, PCR (01/16/2020 4:46 PM CDT) [facility] Method Time Signature SARS Swab, 01/17/2020 [...] performa nce characteristics determined by [facility] in a manner co nsistent with CLIA requirements. Independent review by the U.S. Food and Drug Administration is pending. Visit the CDC website: https://www.cdc.gov/coronavirus/ ?? for the most recent guidelines on [place] virus testing. Fact Sheet for Healthcare Providers: (https://www.Needish.dooub/it-mmfil es/ Provider_Fact_Sheet_for_[facility]_COVI D-19.pdf) Fact Sheet for Patients: (https://www.Needish.dooub/it-mmfil es/ Patient_Fact_Sheet_for_COVID-19.pdf) Specimen Anatomical Collection Method Collection Time Receive d Time (Source) Location / / Volume Laterality Varies 01/16/2020 4:46 PM 0 8:45 (Nasopharynx) CDT PM CDT Del Garrido P.A.-C. LAB MICROBIOLOGY - GENERAL O RDERABLES Performing Organization Address City/State/ZIP Code Phon e Number [facility] - [address] [place], [place] [address] [place] [address] [facility] [address] documented in this encounter Visit Diagnoses Diagnosis Infection Upper Respiratory - Primary documented in this encounter Care Teams Drainage Design Coordinator Relationship Specialty Start Date End Date Judi Strickland APRN, C.N.P., D.N.P. PCP - General 07/25/[id number] [place] [phone] documented as of this encounter
--- OUTSIDE RECORDS SUMMARY | 2022-06-06 08:52 | XMS_ITS | Encounter Summary ---
:1990 Author Organization [facility] Address [address] [place] [address] Care Team Providers Name Role Phone Judi Strickland APRN, C.N.P., D.N.P. Primary Care Provider Reason for Visit Reason Onset Date Comments Testing For Upper Respiratory Virus Symptoms 11/09/2021 Encounter Details Date Type Department Care Team Description 11/09/2021 External Outreach Department of [facility] Leann Garrido Contact With And Medicine, Angela Flaquita ZamoranoARamakrishna (Suspected) Exposure Clinic, in [address] To COVID-19 (Primary [place], [place] Dx) [address] [facility] [address] [place], [place] [phone] (Work) [phone] Social History Tobacco Use Types Packs/Day Years Used Date Smoking Tobacco: Never Smokeless Tobacco: Never Sex Assigned at Date Recorded Not on file documented as of this encounter Progress Notes Betty Sky R.N. - 11/09/2021 8:34 AM CST Encounter created for symptomatic infectious disease screening with possible COVID, Influenza, RSV, and/or Group A Strep testing. BACK OPERATOR documented in this encounter Plan of Treatment Not on filedocumented as of this encounter Procedures Procedure Name Priority Date/Time Associated Diagnosis Comme nts SARS CORONAVIRUS-2 Routine 11/10/2021 3:51 PM Contact With And Results for this RNA, V PLAY BACK OPERATOR (Suspected) Exposure procedu re are in To COVID-19 the results section. documented in this encounter Results SARS Coronavirus-2 RNA, V Symptomatic (11/10/2021 3:51 PM PLAY BACK OPERATOR) [facility] Method Time Signature SARS-CoV-2 Swab, 11/11/2021 ECLR Specimen Nasopharynx 7:22 AM PLAY BACK OPERATOR Source SARS CoV-2 Undetected Undetected 11/11/2021 ECLR RNA, TMA 7:22 AM PLAY BACK OPERATOR Comment: SARS-CoV-2 RNA absent. This result does not rule out COVID-19 in the patient, as the sensitivity of the test depends o n the timing of the specimen collection and the quality of the specim en. Result should be correlated with patient's history and clinical presentat ion. ----ADDITIONAL INFORMATION---- This molecular amplification test was pe rformed using the Aptima SARS-CoV-2 assay ([employer] on the [employer] tem under emergency use authorization (EUA) by the U.S. Food and Drug Administ ration. Fact sheets for this EUA assay can be fo und at the following links: For Healthcare Providers: https://www.[employer] a.gov/media/137575/download For Patients: https://www.fda.gov/media/ 792608/download Specimen Anatomical Collection Method Collection Time Receive d Time (Source) Location / / Volume Laterality Varies 11/10/2021 3:51 PM 9:57 (Nasopharynx) PLAY BACK OPERATOR PM PLAY BACK OPERATOR Del Garrido P.A.-C. LAB MICROBIOLOGY - GENERAL O RDERABLES Performing Organization Address City/State/ZIP Code Phon e Number [facility]- [address] [place] [address] [phone] [facility] [place] [address] System in [address] documented in this encounter Visit Diagnoses Diagnosis Contact With And (Suspected) Exposure To COVID-19 - Primary documented in this encounter Additional Health Concerns Infection Onset Date Last Indicated Resolved Time COVID19 Pending 11/09/2021 11/10/2021 11/11/2021 7:23 AM PLAY BACK OPERATOR documented as of this encounter Care Teams Pile Driver Engineer Relationship Specialty Start Date End Date Judi Strickland APRN, C.N.P., D.N.P. PCP - General 07/25/[address] [place] [phone] documented as of this encounter
--- OUTSIDE RECORDS SUMMARY | 2022-06-06 08:52 | XMS_ITS | Encounter Summary ---
:1990 Author Organization [facility] Address [address] [place] [address] Care Team Providers Name Role Phone Elsewhere, Pcp Primary Care Provider Unavailable Reason for Visit Appointment Request (Routine) - Closed Specialty Diagnoses / Procedures Referred By Contact Refer red To Contact Family Medicine Referral ID Status Reason Start Date Expiration Date Visits Requ ested Visits Authorized [id number] Closed 05/31/2018 05/31/2019 1 Encounter Details Date Type Department Care Team Description 05/31/2018 Office Visit Department of Family José Scott, In grown Toenail MedicineTosha M.D. (Primary Dx) Clinic, in [address] [place] [phone] Social History Tobacco Use Types Packs/Day Years [...] Primary documented in this encounter Care Teams Driver License Reviewing Officer Relationship Specialty Start Date End Date Elsewhere, Pcp PCP - General Family Medicine 09/05/17 06/26/18 documented as of this encounter
--- OUTSIDE RECORDS SUMMARY | 2022-06-06 08:52 | XMS_ITS | Encounter Summary ---
:1990 Author Organization [facility] Address [address] [place] [address] Care Team Providers Name Role Phone Judi Strickland APRN, C.N.P., D.N.P. Primary Care Provider Reason for Visit Reason Comments COVID Nurse Line Encounter Details Date Type Department Care Team Description 01/16/2020 Clinical Communication Central Appointment Line, Covid COVID Nurse Line Office in [facility] [address] [place] [address] Social History Tobacco Use Types [...] to be swabbed for COVID-19, sent to [place], [place] and Self-isolation, quarantine at home Care Points provided: Standard precautions for all patients: Wash hands often with soap and water for at least 20 seconds, especially after blowing your nose, coughing, sneezing, or having been in a public place. If soap and water aren't available, use a hand sight mounter that contains at least 60% alcohol. Avoid [...] essential items or medical care). Educational Resource: https://www.cdc.gov/coronavirus/2019-ncov/oqabnls-ibozwfk-qfjo/index.html Recommendations as testing criteria is met: Stay [...] if any new orworsening symptoms. Education Resources: https://www.cdc.gov/coronavirus/2019-ncov/dr-opx-jss-sick/st ebe-wtji-vepu.html Education: patient/caregiver Patient/caregiver able to teach back Patient agreeable to plan of care: Yes The following references were used: [facility] novel coronavirus (COVID- 19) resources CDC web site https://www.cdc.gov/coronavirus/2019-ncov/summary.html [facility] ([facility]) Guidelines for self-isolation Nursing judgement documented in this encounter Plan of Treatment Not on filedocumented as of this encounter Visit Diagnoses Not on filedocumented in this encounter Care Teams Beauty Operator Apprentice Relationship Specialty Start Date End Date Judi Strickland APRN, C.N.P., D.N.P. PCP - General 07/25/[address] [place] [phone] documented as of this encounter
--- OUTSIDE RECORDS SUMMARY | 2022-06-06 08:52 | XMS_ITS | Encounter Summary ---
:1990 Author Organization [facility] Address [address] [place] [address] Care Team Providers Name Role Phone Judi Strickland APRN, C.N.P., D.N.P. Primary Care Provider Encounter Details Date Type Department Care Team Description 10/18/2021 Clinical Communication Department of Nay[facility] Toscano Obstetrics and [facility] in [address] [address] [place], [place] [phone] (Work) [phone] Social History Tobacco Use Types Packs/Day Years Used Date Smoking Tobacco: Never Smokeless Tobacco: Never Sex Assigned at Date Recorded Not on file documented as of this encounter Miscellaneous Notes Telephone Encounter - Kalyani Bardales R.N. - 10/20/2021 9:37 AM CST Spoke with patient. States that she is unsure if she is planning to come through or [place]. Will call back when decides where she wants her care. CLING TECHNICIAN Telephone Encounter - Carleen Fontaine - 10/18/2021 4:44 PM CST New ob CLING TECHNICIAN documented in this encounter Plan of Treatment Not on filedocumented as of this encounter Visit Diagnoses Not on filedocumented in this encounter Care Teams Street Light Mechanic Relationship Specialty Start Date End Date Judi Strickland APRN, C.N.P., D.N.P. PCP - General 07/25/[address] [place] [phone] documented as of this encounter
--- OUTSIDE RECORDS SUMMARY | 2022-06-06 08:52 | XMS_ITS | Encounter Summary ---
:1990 Author Organization [facility] Address [address] [place] [address] Care Team Providers Name Role Phone Unavailable Primary Care Provider Unavailable Encounter Details Date Type Department Care Team Description 06/03/2015 Hospital Encounter HX [facility] FAMILY ME Anne-Marie Ricardo APRN, C.N.P., D. N.P. [address] [place] [phone] (Wo rk) Social History Tobacco Use [...] APRN, C.N.P. - 06/03/2015 7:36 AM CDT [id number] CHIEF COMPLAINT/REASON FOR VISIT Sore throat. HISTORY [...] RN, CNP On: 06/10/2015 07:48 AM Source: [facility] MHSDOLBEYNONRADSYS Document Id: [id number] documented in this encounter Miscellaneous Notes Miscellaneous - Anne-Marie Ricardo APRN, C.N.P. - 06/03/2015 8:23 AM CDT Ambulatory Patient Summary [address] [place] [id number] Visit Information Name: ARIS LEOS [facility] Number: [id number] Current Date: 06/03/2015 08:23:04 Physicians Attending Provider: ANNE-MARIE RICARDO RN, SITE ACQUISITION MANAGER Primary Care Provider: ANNE-MARIE RICARDO RN, SITE ACQUISITION MANAGER ARIS LEOS LELIA has been given the [...] day x 10 day(s) New Routed to [address] [address] Stop Taking the Following Medications: Medication list [...] emergency. Electronically Signed By: ANNE-MARIE RICARDO RN, SITE ACQUISITION MANAGER Signed On:03-JUN-2015 08:19:31 Your Allergies & Intolerances [...] if you dont have one. Go to [email or web address] and click on Create Your Account. Then, follow the directions to complete the online form. Youll be asked for your [facility] number which you can find at the top of this document. Your Goals/Additional instructions: Source: [facility] POWERCHART Document Id: [id number] Shashank - Anne-Marie Ricardo APRN, Zulema.N.P. - 06/03/2015 8:23 AM CDT Ambulatory Discharge Medication List [address] [id number] Visit Information Name: ARIS LEOS [facility] Number: [id number] Visit Date: 06/03/2015 08:23:03 Attending [...] day x 10 day(s) New Routed to [address] [place] [address] Stop Taking the Following Medications: Medication list [...] THERESA Signed On:03-JUN-2015 08:19:31 Additional Information: Source: [facility] POWERCHART Document Id: [id number] Miscellaneous - Dewey Duong L.P.N. - 06/03/2015 7:39 AM CDT Adult Real Estate Financial Analyst Intake/History Adult Real Estate Financial Analyst Intake/History Entered On: 06/03/2015 7:43 CDT Performed [...] 06/03/2015 7:39 CDT General Info Languages : Danish Is Patient Female and [...] Grid Drug Use : None DEWEY DUONG SALES MERCHANDISE ASSOCIATE - 06/03/2015 7:39 CDT Source: [facility] POWERCHART Document Id: [id number] CDT!47 documented in this encounter Plan of Treatment Not on filedocumented as of this encounter Procedures Procedure Name Priority Date/Time Associated Diagnosis Comme nts RAPID STREP A Routine 06/03/2015 7:50 AM Results for this SCREEN CDT procedure are i n the results section. documented in this encounter Results (ABNORMAL) Rapid Strep A Screen (06/03/2015 7:50 AM CDT) [facility] Method Time Signature HXStrep A (POSITIVE) [...]
--- OUTSIDE RECORDS SUMMARY | 2022-06-06 08:52 | XMS_ITS | Encounter Summary ---
:1990 Author Organization [facility] Address [address] [place] [address] Care Team Providers Name Role Phone Unavailable Primary Care Provider Unavailable Encounter Details Date Type Department Care Team Description 01/20/2011 Hospital Encounter HX [facility] FAMILY ME Brenna Craig, GRIS, Zulema.N.P., D. N.P. [address] [place] [address] (Wo rk) Social History Tobacco Use Types Packs/Day Years Used Date Smoking Tobacco: Never Assessed Sex Assigned at Date Recorded Not on file documented as of this encounter Progress Notes Brenna Craig, D.N.P., C.N.P. - 01/20/2011 12:00 AM CDT [id number] CHIEF COMPLAINT/REASON FOR VISIT Headache. HISTORY OF [...] reports that she has not used anything mxdm-iih-kzrvles to help with her symptoms of discomfort [...] equal, round and reactive to light.. OROPHARYNX: [place] and moist. TMs: Bilateral tympanic membranes are [...] fluid intake and take ibuprofen over the zahy-kvk-cotqiog as directed on package to help with [...] CRAIG DNP, FNP On: 01/20/2011 08:07 Source: [facility] Document Id: [id number] documented in this encounter Miscellaneous Notes Miscellaneous - Brenna Craig D.N.P., C.N.P. - 01/20/2011 5:45 PM CDT Ambulatory Patient Summary [address] [id number] Visit Information Name: ARIS LEOS Current Date: 01/20/2011 17:45:32 Primary Care Provider: OFELIA RICARDO RN, LADLE PULLER Your Medications Here is a list of [...] No Appointments found Your Goals/Additional instructions: Source: [facility] POWERCHART Document Id: [id number] Electronically signed by Anastacia [facility] Customer Support Technician [id number] at 03/05/2017 10:49 AM CDT Miscellaneous - Brenna Craig, Bonnie.N.P., C.N.P. - 01/20/2011 5:45 PM CDT Ambulatory Depart Summary [facility] - [address] [address] Visit Information Name: ARIS LEOS Current Date: 01/20/2011 17:45:32 Primary Care Provider: OFELIA RICARDO RN, LADLE PULLER ARIS LEOS has been given the following [...] to the patient and/or family, guardian/caregiver. Source: [facility] Botanical TansCHART Document Id: [id number] Shashank - Betsy Chong L.P.N. - 01/20/2011 [...] CHONG LPN - 01/20/2011 15:39 CDT Source: [facility] [employer] Document Id: [id number] CDT!31 Miscellphilippe - Betsy Chong L.P.N. - 01/20/2011 3:33 PM CDT Adult Print Support Specialist Intake/History Adult Print Support Specialist Intake/History Entered On: 01/20/2011 15:39 CDT Performed [...] LPN; Reviewed Date: 01/20/2011 15:33 CDT Source: [facility] [employer] Document Id: [id number] CDT!44 documented in this encounter Plan of Treatment Not on filedocumented as of this encounter Visit Diagnoses Not on filedocumented in this encounter
--- OUTSIDE RECORDS SUMMARY | 2022-06-06 08:52 | XMS_ITS | Encounter Summary ---
:1990 Author Organization [facility] Address [address] [place] [address] Care Team Providers Name Role Phone Unavailable Primary Care Provider Unavailable Encounter Details Date Type Department Care Team Description 05/09/2012 Hospital Encounter HX [facility] ED Christiano José M.D. [address] [place] [address] [place] [phone] (Wo rk) Social History Tobacco Use Types [...] 05/09/2012 3:38 PM CDT ED Discharge Instructions [facility] [address] [place] [address] Name: ARIS LEOS Date of : 1990 12:00 AM Visit Date: 05/09/2012 12:29 PM Address: [address] [place] [address] [facility] [phone] Primary Care Provider: OFELIA RICARDO RN, BRUSHER IMPORTANT: [facility] in [place] would like to thank you for allowing [...] Comments: With: Address: When: OFELIA RICARDO [address] [place] [address] [facility] (1[employer] Within As Needed Comments: With: Address: When: [...] ride home with a responsible alliance party. IDAFNE HAYLEY ANNE , or responsible alliance party [...] Responsible Republican/Relationship Date/Time Provider Signature Date/Time Source: [facility] POWERCHART Document Id: [id number] Juliette Gerardo R.N. - 05/09/2012 3:38 PM CDT ED Depart Summary [facility] Emergency Department Clinical Discharge Summary PERSON INFORMATION Name ARIS LEOS Age 21 Years 1990 12:00 AM Sex Female Language Guatemalan PCP OFELIA RICARDO RN, BRUSHER Marital Status Single N [id number] Visit Id Visit Reason throat burn, sob Specialty Enc Type Emergency Med Service Emergency Medicine Referred by Track Group [facility] ED Discharge 05/09/2012 1:00 PM Tracking Id [id number] Checkout 05/09/2012 1:00 PM Checkin 05/09/2012 12:29 PM Acuity Dispo Type * Discharged to Home or Self Care Arrival 05/09/2012 12:29 PM Reg Status LOS 000 00:31 Address: [address] [place] [phone] Comment: PROVIDER INFORMATION Provider Role Provider Contact Time IZABELLA BARRON MD ED Provider 05/09/12 12:54 JULIETTE GERARDO AGRICULTURE SCIENTIST Nurse 05/09/12 14:02 DIAGNOSIS Respiratory problem; Dyspnea [...] Comments: With: Address: When: OFELIA RICARDO [address] [place], [place] [phone] Business (1) Within As Needed Comments: With: Address: When: No work for rest of the day today Within As Needed Comments: Source: [facility] [employer] Document Id: [id number] documented in this encounter Nursing Notes Juliette Gerardo R.N. - 05/09/2012 3:37 PM CDT ED Pain Assessment ED Pain Assessment Entered On: 05/09/2012 15:37 CDT Performed On: 05/09/2012 15:37 CDT by JULIETTE GERARDO RN Pain Assessment Pain Symptoms : No JULIETTE GERARDO RN - 05/09/2012 15:37 CDT Source: [facility] [employer] Document Id: [id number] Juliette Gerardo R.N. - 05/09/2012 12:58 PM CDT Poison control advice Poison control contacted and recommended observe for fever and productive cough and to report back to DRAnia Source: [facility] [employer] Document Id: [id number] Juliette Gerardo R.N. - 05/09/2012 12:55 PM CDT ED Primary Assessment ED Primary Assessment Entered On: 05/09/2012 12:57 CDT Performed On: 05/09/2012 12:55 CDT by JULIETTE GERARDO RN Reason For Visit Problems(Active) Iron deficiency anemia Name of Problem: Iron deficiency anemia ; Onset Date: 06/28/2010 ; Recorder: BRENNA CRAIG DNP, FNP; Confirmation: Confirmed ; Classification: Medical ; Code: 485179 ; Contributor System: trippiece ; Last Updated: 02/15/2011 11:49 CDT ; [...] Code:PNED ; Probability: 0 ; Diagnosis Code: [id number] Triage Chief Complaint Description : see triage note Information Given By : Patient Accompanied By : Mother, Sibling Mode of Arrival ED : Private vehicle Track : Medical Languages : Guatemalan JULIETTE GERARDO RN - 05/09/2012 12:55 CDT Pain Assessment Pain Symptoms : No JULIETTE GERARDO RN - 05/09/2012 12:55 CDT Allergy Allergies (Active) NKA Estimated Onset Date: Unspecified ; Created By: CATHLEEN KURTZ LPN; Reaction Status: Active ;Category: Drug ; Substance: NKA ; Type: Allergy ; Updated By: CATHLEEN KUTRZ LPN; Reviewed Date: 05/09/2012 12:55 CDT Respiratory [...] GERARDO RN - 05/09/2012 12:55 CDT Source: [employer] Document Id: [id number] documented in this encounter ED Notes Juliette Gerardo R.N. - 05/09/2012 3:37 PM CDT ED Disposition Summary ED Disposition Summary Entered On: 05/09/2012 15:37 CDT Performed On: 05/09/2012 15:37 CDT by JULIETTE GERARDO AGRICULTURE SCIENTIST Disposition Summary Accompanied By : Mother Mode of Discharge : Ambulatory Transportation : Private vehicle Printed Discharge Instructions Given to Patient : Yes Patient Status at Discharge from ED : Improved JULIETTE GERARDO RN - 05/09/2012 15:37 CDT Source: [employer] Document Id: [id number] Izabella Barron M.D. - 05/09/2012 12:55 PM [...] . All Problems Iron deficiency anemia / [id number] / Confirmed Tinea pedis / 110.4 / [...] BARRON MD On: 05/09/2012 02:26 PM [facility] POWER[facility]ART Document Id: [id number]} Juliette Gerardo R.N. - 05/09/2012 12:45 PM CDT ED Triage Assessment ED Triage Assessment Entered On: 05/09/2012 12:55 CDT Performed On: 05/09/2012 12:45 CDT by JULIETTE GERARDO RN Reason For Visit Problems(Active) Iron deficiency anemia Name of Problem: Iron deficiency anemia ; Onset Date: 06/28/2010 ; Recorder: BRENNA CRAIG DNP, STEM MOUNTER; Confirmation: Confirmed ; Classification: Medical ; Code: 233317 ; Contributor System: PowerChart ; Last Updated: 02/15/2011 11:49 CDT ; Life Cycle Date: 02/15/2011 ; Life Cycle Status: Active ; Responsible Provider: BRENNA CRAIG DNP, STEM MOUNTER; Vocabulary: SNOMED CT Tinea pedis Name of [...] PNED ; Probability: 0 ; Diagnosis Code: [id number] Triage Chief Complaint Description : States at [...] Private vehicle Track : Medical Languages : Guatemalan Vital Signs Assessed : Yes JULIETTE GERARDO [...] GERARDO RN - 05/09/2012 12:45 CDT Source: [employer] Document Id: [id number] documented in this encounter Miscellaneous Notes Miscellaneous [...] GERARDO RN - 05/09/2012 15:37 CDT Source: [employer] Document Id: [id number] Miscellaneous - Juliette Gerardo R.N. - 05/09/2012 12:29 PM CDT Facility Charge Ticket Facility Charge Ticket Entered On: 05/09/2012 15:38 CDT Performed On: 05/09/2012 12:29 CDT by JULIETTE GERARDO RN Facility Charge TVL Level for Facility Charge Ticket : Level 3 Lynx Total Points with Diagnosis Control : 5 Lynx Visit Level : 73459 Level 3 ANIA LINDER - 05/23/2012 15:05 [...] ANIA LINDER - 05/23/2012 15:05 CDT [facility] POWER[facility] Document Id: [id number] documented in this encounter Plan of Treatment Not on filedocumented as of this encounter Visit Diagnoses Not on filedocumented in this encounter
--- OUTSIDE RECORDS SUMMARY | 2022-06-06 08:52 | XMS_ITS | Encounter Summary ---
:1990 Author Organization [facility] Address [address] [place] [address] Care Team Providers Name Role Phone Unavailable Primary Care Provider Unavailable Encounter Details Date Type Department Care Team Description 09/18/2012 Hospital Encounter HX [facility] ME Brenna Craig, GRIS, Zulema.N.P., D. N.P. [address] [place] [address] (Wo rk) Social History Tobacco Use Types Packs/Day Years Used Date Smoking Tobacco: Never Assessed Sex Assigned at Date Recorded Not on file documented as of this encounter Last Filed Vital Signs Vital Sign Reading Time Taken Comments Blood Pressure 116/68 09/18/2012 1:55 PM NEWSPAPER OR PERIODICAL EDITOR Pulse 88 09/18/2012 1:55 PM NEWSPAPER OR PERIODICAL EDITOR Temperature - - Respiratory Rate 18 09/18/2012 1:55 PM NEWSPAPER OR PERIODICAL EDITOR Oxygen Saturation - - Inhaled Oxygen Concentration - - Weight 82.7 kg (182 lb 5.1 oz) 09/18/2012 1:55 PM NEWSPAPER OR PERIODICAL EDITOR Height - - Body Mass Index 29.3 05/09/2012 12:45 PM CDT documented in this encounter Progress Notes Brenna Craig, D.N.P., C.N.P. - 09/18/2012 1:49 PM CST [id number] CHIEF COMPLAINT/REASON FOR VISIT Runny nose and [...] of. 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 She otherwise denies having any other further concerns or issues. She denies having any nausea or vomiting, shortness of breath, or difficulty breathing and reports that she has not had any changes in urination or bowel habits. She does report that she has been using [id number] Tylenol to help with the symptoms with minimal symptom improvement. PAST MEDICAL/SURGICAL HISTORY Reviewed. Please see chart. FAMILY HISTORY Reviewed. Please see chart. CURRENT MEDICATIONS Reviewed. Please see chart. ALLERGIES Reviewed. Please see chart. PHYSICAL EXAMINATION OBJECTIVE: Patient is alert/oriented x 3. HEAD: Normocephalic/atraumatic. PUPILS: HARITHA. OROPHARYNX: [place] and moist. TMs: Bilateral TMs are clear, [...] will also plan on contacting her at [phone] regarding her urine gonorrhea and chlamydia results [...] DNP, FNP On: 09/20/2012 09:55 AM Source: [facility] MHSDOLBEYNONRADSYS Document Id: [id number] PAPER OR PERIODICAL EDITOR documented in this encounter Miscellaneous Notes Miscellaneous - Brenna Craig D.N.P., C.N.P. - 09/18/2012 2:56 PM NEWSPAPER OR PERIODICAL EDITOR Ambulatory Patient Summary [address] [address] Visit Information Name: ARIS LEOS [facility] Number: [id number] Current Date: 09/18/2012 14:56:37 Physicians Attending Provider: BRENNA CRAIG DNP, FNP Primary Care Provider: OFELIA RICARDO RN, VIDEO CLERK Your Medications Here is a list of [...] No Appointments found Your Goals/Additional instructions: Source: [facility] POWERCHART Document Id: [id number] PAPER OR PERIODICAL EDITOR Miscellaneous - Brenna Craig D.N.P., C.N.P. - 09/18/2012 2:56 PM NEWSPAPER OR PERIODICAL EDITOR Ambulatory Depart Summary [address] [address] Visit Information Name: ARIS LEOS [facility] Number: [id number] Visit Date: 09/18/2012 14:56:36 Attending Provider: BRENNA CRAIG DNP, [employer] Primary Care Provider: OFELIA RICARDO RN, VIDEO CLERK ARIS LEOS has been given the following [...] your provider for clarification. Additional Information: Source: [facility] POWERCHART Document Id: [id number] PAPER OR PERIODICAL EDITOR Miscellaneous - Darius Sandoval, L.P.N. - 09/18/2012 1:55 PM CST Adult Head Pastry Chef Intake/History Adult Head Pastry Chef Intake/History Entered On: 09/18/2012 14:00 NEWSPAPER OR PERIODICAL EDITOR Performed On: 09/18/2012 13:55 NEWSPAPER OR PERIODICAL EDITOR by DARIUS SANDOVAL LPN Intake Chief Complaint [...] 82.70kg DARIUS SANDOVAL LPN - 09/18/2012 13:55 NEWSPAPER OR PERIODICAL EDITOR Subjective Pain Symptoms : No DARIUS SANDOVAL LPN - 09/18/2012 13:55 NEWSPAPER OR PERIODICAL EDITOR Dependent Habits Tobacco Use/Currently Using : Yes Exposure to Tobacco Smoke : Patient smokes Smoking Status : Current every day smoker DARIUS SANDOVAL LPN - 09/18/2012 13:55 NEWSPAPER OR PERIODICAL EDITOR Tobacco Use Grid Type : Cigarettes Cigarette Use Packs/Day : 0.5 Last Use : 10 min ago DARIUS SANDOVAL LPN - 09/18/2012 13:55 NEWSPAPER OR PERIODICAL EDITOR Alcohol Use : No DARIUS SANDOVAL LPN - 09/18/2012 13:55 NEWSPAPER OR PERIODICAL EDITOR Caffeine Use Grid Caffeine Use : Current Type : Soft drinks Frequency : Weekly Amount : 2 cans Last Use : 11am DARIUS SANDOVAL LPN - 09/18/2012 13:55 NEWSPAPER OR PERIODICAL EDITOR Recreational Drug Use Grid Drug Use : None DARIUS SANDOVAL LPN - 09/18/2012 13:55 NEWSPAPER OR PERIODICAL EDITOR Allergy Allergies (Active) NKA Estimated Onset Date: Unspecified ; Created By: CATHLEEN KURTZ LPN; Reaction Status: Active ;Category: Drug ; Substance: NKA ; Type: Allergy ; Updated By: CATHLEEN KURTZ LPN; Reviewed Date: 09/18/2012 13:48 NEWSPAPER OR PERIODICAL EDITOR Source: [facility] AppSurfer Document Id: [id number] PAPER OR PERIODICAL EDITOR Miscellaneous - Darius Sandoval, L.P.N. - 09/18/2012 1:55 PM CST Health Assessment Health Assessment Entered On: 09/18/2012 14:00 NEWSPAPER OR PERIODICAL EDITOR Performed On: 09/18/2012 13:55 NEWSPAPER OR PERIODICAL EDITOR by DARIUS SANDOVAL LPN Health Assessment Complete Health Assessment Complete or Modified : Annual Health Assessment Annual Health Assessment Completed : Yes DARIUS SANDOVAL LPN - 09/18/2012 13:55 NEWSPAPER OR PERIODICAL EDITOR Nutrition Nutrition Risk Factors by History Adult : None DARIUS SANDOVAL LPN - 09/18/2012 13:55 NEWSPAPER OR PERIODICAL EDITOR Functional Current Daily Living Assistance : None DARIUS SANDOVAL LPN - 09/18/2012 13:55 NEWSPAPER OR PERIODICAL EDITOR Dependent Habits Tobacco Use/Currently Using : Yes Exposure to Tobacco Smoke : Patient smokes Smoking Status : Current every day smoker DARIUS SANDOVAL LPN - 09/18/2012 13:55 NEWSPAPER OR PERIODICAL EDITOR Tobacco Use Grid Type : Cigarettes Cigarette Use Packs/Day : 0.5 Last Use : 10 min ago DARIUS SANDOVAL [facility] 09/18/2012 13:55 NEWSPAPER OR PERIODICAL EDITOR Alcohol Use : No DARIUS SANDOVAL [facility] 09/18/2012 13:55 NEWSPAPER OR PERIODICAL EDITOR Caffeine Use Grid Caffeine Use : Current Type : Soft drinks Frequency : Weekly Amount : 2 cans Last Use : 11am DARIUS SANDOVAL [facility] 09/18/2012 13:55 NEWSPAPER OR PERIODICAL EDITOR Recreational Drug Use Grid Drug Use : None DARIUS SANDOVAL [facility] 09/18/2012 13:55 NEWSPAPER OR PERIODICAL EDITOR Psychosocial Domestic Abuse Concerns : None DARIUS SANDOVAL [facility] 09/18/2012 13:55 NEWSPAPER OR PERIODICAL EDITOR Advance Directive Advanced Directives : No DARIUS SANDOVAL [facility] 09/18/2012 13:55 NEWSPAPER OR PERIODICAL EDITOR Educ Needs Learning Style Preference Adult Grid Patient : None Family : None DARIUS SANDOVAL [facility] 09/18/2012 13:55 NEWSPAPER OR PERIODICAL EDITOR Source: [facility] POWERCHART Document Id: [id number] PAPER OR PERIODICAL EDITOR documented in this encounter Plan of Treatment Not on filedocumented as of this encounter Procedures Procedure Name Priority Date/Time Associated Diagnosis Comme nts INFLUENZA A/B Routine 09/18/2012 2:34 PM Results for this NEWSPAPER OR PERIODICAL EDITOR procedure are i n the results section. N GONOR AMP SRC Routine 09/18/2012 2:33 PM Result s for this NEWSPAPER OR PERIODICAL EDITOR procedure are i n the results section. N GONOR AMP DNA Routine 09/18/2012 2:33 PM Result s for this NEWSPAPER OR PERIODICAL EDITOR procedure are i n the results section. C TRACH AMP SRC Routine 09/18/2012 2:33 PM Result s for this NEWSPAPER OR PERIODICAL EDITOR procedure are i n the results section. C TRACH AMP RNA Routine 09/18/2012 2:33 PM Result s for this NEWSPAPER OR PERIODICAL EDITOR procedure are i n the results section. documented in this encounter Results (ABNORMAL) Influenza A/B (09/18/2012 2:34 PM NEWSPAPER OR PERIODICAL EDITOR) [facility] Method Time Signature HXInfluenza A (POSITIVE [...] / Volume Laterality Nasal 09/18/2012 2:34 PM NEWSPAPER OR PERIODICAL EDITOR Brenna Craig APRN, C.N.P., D.N.P. LAB MICROBIOLO GY - GENERAL ORDERABLES Performing Organization Address City/State/ZIP Code Phon e Number POWERCHART HX-N gonor Amp DNA (09/18/2012 2:33 PM NEWSPAPER OR PERIODICAL EDITOR) athologist Signature HXN gonor Amp Negative POWERCHART DNA-[place] Specimen (Source) Anatomical Collection Method Collection Time Re ceived Time Location / / Volume Laterality 09/18/2012 2:33 PM NEWSPAPER OR PERIODICAL EDITOR Narrative POWERCHART - 09/20/2012 8:45 AM NEWSPAPER OR PERIODICAL EDITOR Test Performed by: [place] [address] Market Research Associate: Raji encarnacion III, M.D. Brenna Craig APRN C.N.P., D.N.P. LAB HISTORICAL ORDERS Performing Organization Address City/[facility]/ZIP Code Phon e Number POWERCHART HX-N gonor Amp Src (09/18/2012 2:33 PM NEWSPAPER OR PERIODICAL EDITOR) athologist Signature HXN gonor Amp urine POWERCHART Src-[place] Specimen (Source) Anatomical Collection Method Collection Time Re ceived Time Location / / Volume Laterality 09/18/2012 2:33 PM NEWSPAPER OR PERIODICAL EDITOR Brenna Craig APRN, C.N.P., D.N.P. LAB HISTORICAL ORDERS Performing Organization Address City/State/ZIP Code Phon e Number POWERCHART HX-C trach Amp RNA (09/18/2012 2:33 PM NEWSPAPER OR PERIODICAL EDITOR) [facility] gist Method Time Signature Chlamydia Negative POWERCHART trachomatis amplified RNA Specimen (Source) Anatomical Collection Method Collection Time Re ceived Time Location / / Volume Laterality 09/18/2012 2:33 PM NEWSPAPER OR PERIODICAL EDITOR Brenna Craig APRN, C.N.P., D.N.P. LAB HISTORICAL ORDERS Performing Organization Address City/State/ZIP Code Phon e Number POWERCHART HX-C trach Amp Src (09/18/2012 2:33 PM NEWSPAPER OR PERIODICAL EDITOR) athologist Signature HXC trach Amp urine POWERCHART [facility] Specimen (Source) Anatomical Collection Method Collection Time Re ceived Time Location / / Volume Laterality 09/18/2012 2:33 PM NEWSPAPER OR PERIODICAL EDITOR Brenna Craig APRN, C.N.P., D.N.P. LAB HISTORICAL ORDERS Performing Organization Address City/State/ZIP Code Phon e Number POWERCHART documented in this encounter Visit Diagnoses Not on filedocumented in this encounter
--- OUTSIDE RECORDS SUMMARY | 2022-06-06 08:52 | XMS_ITS | Encounter Summary ---
:1990 Author Organization [facility] Address [address] [place] [address] Care Team Providers Name Role Phone Elsewhere, Pcp Primary Care Provider Unavailable Reason for Visit Reason Comments Abdominal Pain Started this AM upper abdome n contracts shooting pain. Appointment Request (Routine) - Closed Specialty Diagnoses / Procedures Referred By Contact Refer red To Contact Family Medicine Referral ID Status Reason Start Date Expiration Date Visits Requ ested Visits Authorized [id number] Closed 10/11/2017 04/09/2018 1 1 Encounter Details Date Type Department Care Team Description 10/11/2017 Office Visit Department of Family Suzanne Garcia Pa in Right Upper Medicine, [place] GRIS, C.N.PAnia, L[facility] enriquezt (Primary Dx) Clinic, in [place] [address] [place] [phone] Social History Tobacco Use Types Packs/Day Years Used Date Smoking Tobacco: Never Smokeless Tobacco: Never Sex Assigned at Date Recorded Not on file documented as of this encounter Last Filed Vital Signs Vital Sign Reading Time Taken Comments Blood Pressure 123/75 10/11/2017 4:29 PM ATTENDANCE CLERK Pulse 100 10/11/2017 4:29 PM ATTENDANCE CLERK Temperature 37.1 ??C (98.8 ??F) 10/11/2017 4:29 PM ATTENDANCE CLERK Respiratory Rate 16 10/11/2017 4:29 PM ATTENDANCE CLERK Oxygen Saturation 100% 10/11/2017 4:29 PM ATTENDANCE CLERK Inhaled Oxygen Concentration - - Weight 78.7 kg (173 lb 8 oz) 10/11/2017 4:29 PM ATTENDANCE CLERK Height - - Body Mass Index 28 09/15/2017 11:20 AM ATTENDANCE CLERK documented in this encounter Patient Instructions Patient InstructionsSuzanne Garcia APRN, D.N.P., C.N.P. - 10/11/2017 4:45 PM CST Please schedule abdominal U/S in [place] at 9am in their urgent spot NDANCE CLERK documented in this encounter Progress Notes Suzanne [...] pericholecystic fluid. Negative sonographic Marshall sign, per fish boning machine feeder. Intrahepatic ducts: Not dilated. Common duct: Not dilated. NORMAL caliber abdominal aorta. ?? IMPRESSION: Normal gallbladder ultrasound. ASSESSMENT/PLAN: #1 Pain Right Upper Quadrant Given patient's symptoms and clinical exam, I am suspicious for cholelithiasis versus cholecystitis.Blood work done today and equivocal - arranged for a semi- urgent abdominal ultrasound which will be for performed in [place] tomorrow morning (10/12/17). Abdominal U/S is negative for concerns. Suspect possible muscular strain. Recommended conservative management - [id number] analgesics, ice/heat, rest. Patient is asymptomatic otherwise [...] the content. Suzanne Garcia APRN, D.N.P., C.N.P. NDANCE CLERK documented in this encounter Plan of Treatment Not on filedocumented as of this encounter Procedures Procedure Name Priority Date/Time Associated Comments Diagnosis MORPHOLOGY EVALUATION Routine 10/11/2017 5:03 PM Results for this ATTENDANCE CLERK procedure are i n the results section. CBC WITH DIFFERENTIAL, Routine 10/11/2017 5:03 PM Pain Right U pper Results for this B ATTENDANCE CLERK Quadrant procedure are i n the results section. LIPASE, S/P Routine 10/11/2017 5:03 PM Pain Right Upper Resul ts for this ATTENDANCE CLERK Quadrant procedure are i n the results section. AMYLASE, TOT, S Routine 10/11/2017 5:03 PM Pain Right Upper Re sults for this ATTENDANCE CLERK Quadrant procedure are i n the results section. COMPREHENSIVE Routine 10/11/2017 5:03 PM Pain Right Upper Resu lts for this METABOLIC PANEL, S/P ATTENDANCE CLERK Quadrant procedu re are in the results section. documented in this encounter Results Morphology Evaluation (10/11/2017 5:03 PM ATTENDANCE CLERK) Analysis Performed At Patho logist Time Signature RBC Morphology Normal 10/11/2017 [facility] 7:27 PM [facility] PLT Morphology Normal 10/11/2017 [facility] 7:27 PM [facility] PLT Estimate Adequate Adequate 10/11/2017 [facility] 7:27 PM [facility] Specimen Anatomical Collection Method Collection Time Receive d Time (Source) Location / / Volume Laterality Blood 10/11/2017 5:03 PM 8 5:53 ATTENDANCE CLERK PM ATTENDANCE CLERK Suzanne Garcia APRN, Zulema.N.P., D.N.P. LAB BLOOD ADD-ON Performing Organization Address City/State/ZIP Code Phon e Number [facility]- [id number] [place] [id number] [place] Lipase (10/11/2017 5:03 PM ATTENDANCE CLERK) P athologist Signature Lipase, S 34 13 - 60 U/L 10/11/2017 [facility] 5:53 PM [facility] Specimen Anatomical Collection Method Collection Time Receive d Time (Source) Location / / Volume Laterality Blood (Blood, 10/11/2017 5:03 PM 10/11/19 18 5:30 Venous) ATTENDANCE CLERK PM ATTENDANCE CLERK Oswald Campos APRNN.Jie., D.N.P. LAB BLOOD ADD-ON Performing Organization Address [facility] Phon e Number [address] [address] [place] [facility] Amylase, Total (10/11/2017 5:03 PM ATTENDANCE CLERK) P athologist Signature Amylase, Total, 44 26 - 102 10/11/2017 [facility] S U/L 5:53 PM [facility] Specimen Anatomical Collection Method Collection Time Receive d Time (Source) Location / / Volume Laterality Blood (Blood, 10/11/2017 5:03 PM 10/11/19 18 5:30 Venous) ATTENDANCE CLERK PM ATTENDANCE CLERK Oswald Campos APRNN.P., D.N.P. LAB BLOOD ADD-ON Performing Organization Address [facility] Phon e Number [address] [address] [place] [facility] (ABNORMAL) CBC with Differential (10/11/2017 5:03 PM ATTENDANCE CLERK) [facility] Method Time Signature Hemoglobin 11.2 (L) 11.6 - 10/11/2017 [facility] 15.0 g/dL 7:02 PM [facility] Hematocrit 34.4 (L) 35.5 - 10/11/2017 [facility] 44.9 % 7:02 PM [facility] [employer] [facility] Erythrocytes 5.63 (H) 3.92 - 10/11/2017 [facility] 5.13 7:02 PM [facility] x10(12)/L [facility] [employer] [facility] MCV 61.1 (L) 78.2 - 10/11/2017 [facility] 97.9 fL 7:02 PM [facility] RBC Distrib Width 14.7 12.2 - 10/11/2017 [facility] 16.1 % 7:02 PM [facility] Platelet Count 292 157 - 371 10/11/2017 [facility] x10(9)/L 7:02 PM [facility] Leukocytes 11.3 (H) 3.4 - 9.6 10/11/2017 [facility] x10(9)/L 7:02 PM [facility] Neutrophils 7.70 (H) 1.56 - 10/11/2017 [facility] 6.45 7:02 PM ATTENDANCE CLERK [facility] x10(9)/L [facility] Lymphocytes 2.95 0.95 - 10/11/2017 [facility] 3.07 7:02 PM ATTENDANCE CLERK HEALTH x10(9)/L [facility] Monocytes 0.52 0.26 - 10/11/2017 [facility] 0.81 7:02 PM ATTENDANCE CLERK HEALTH x10(9)/L [facility] Eosinophils 0.13 0.03 - 10/11/2017 [facility] 0.48 7:02 PM ATTENDANCE CLERK [facility]ALTH x10(9)/L [facility] [employer] [facility] Basophils 0.02 0.01 - 10/11/2017 [facility] 0.08 7:02 PM ATTENDANCE CLERK HEALTH x10(9)/L [facility] [employer] [facility] Specimen Anatomical Collection Method Collection Time Receive d Time (Source) Location / / Volume Laterality Blood 10/11/2017 5:03 PM 8 7:02 ATTENDANCE CLERK PM ATTENDANCE CLERK Suzanne Garcia APRN C.N.P., D.N.P. LAB BLOOD ADD-ON Performing Organization Address City/State/ZIP Code Phon e Number [facility]- [address] [place] [phone] [place] [address] LAB CMP (Comprehensive Metabolic Panel) (10/11/2017 5:03 PM ATTENDANCE CLERK) P athologist Signature Potassium, S 4.3 3.6 - 5.2 10/11/2017 [facility] mmol/L 5:53 PM [facility] Sodium, S 140 135 - 145 10/11/2017 [facility] mmol/L 5:53 PM [facility] Chloride, S 102 98 - 107 10/11/2017 [facility] mmol/L 5:53 PM [facility] Bicarbonate, S 25 22 - 29 10/11/2017 [facility] mmol/L 5:53 PM [facility] Anion Gap 13 7 - 15 10/11/2017 [facility] 5:53 PM [facility] [place] BUN (Blood Urea 13 6 - 21 10/11/2017 [facility] Nitrogen), S mg/dL 5:53 PM [facility] [place] [facility] Creatinine 0.94 0.59 - 10/11/2017 [facility] 1.04 mg/dL 5:53 PM [facility] [place] eGFR 85 >=60 10/11/2017 [facility] Non-Black/Afric mL/min/BSA 5:53 PM [facility] [place] [facility] Comment: ----ADDITIONAL INFORMATION---- Estimated GFR calculated using the 2009 CKD_EPI creatinine equation. eGFR Black/ >90 >=60 mL/min/BSA 10/11/2017 5:53 PM [facility] [place] [facility] Comment: ----ADDITIONAL INFORMATION---- Estimated GFR calculated using the 2009 CKD_EPI creatinine equation. Calcium, Total, S 9.6 8.9 - 10.1 10/11/2017 5:53 PM [facility] mg/dL [facility] [place] Glucose, S 93 70 - 140 mg/dL 10/11/2017 5:[address] [facility] [employer] [facility] Protein, Total, S 7.2 6.3 - 7.9 g/dL 10/11/2017 5:[address] [facility] [place] [facility] Albumin, S 4.5 3.5 - 5.0 g/dL 10/11/2017 5:[address] [facility] [employer] [facility] Aspartate Aminotransferase 22 8 - 43 U/L 10/11/2017 5 :53 PM [facility] [place] [facility] Alkaline Phosphatase, S 61 37 - 98 U/L 10/11/2017 5:[address] [facility] [employer] [facility] Alanine Aminotransferase 25 7 - 45 U/L 10/11/2017 5:5 3 PM [facility] [place] [facility] Bilirubin, Total, S 0.5 <=1.2 mg/dL 10/11/2017 5:[address] [facility] [place] [facility] Specimen Anatomical Collection Method Collection Time Receive d Time (Source) Location / / Volume Laterality Blood 10/11/2017 5:03 PM 8 5:31 ATTENDANCE CLERK PM ATTENDANCE CLERK Zulema Campos APRN.N.P., D.N.P. LAB BLOOD ADD-ON Performing Organization Address City/State/[facility] Code Phon e Number [facility]- [address] [address] [place] [facility] documented in this encounter Visit Diagnoses Diagnosis Pain Right Upper Quadrant - Primary documented in this encounter Care Teams Integrated Circuits Inspector Relationship Specialty Start Date End Date Elsewhere, Pcp PCP - General Family Medicine 09/05/17 06/26/18 documented as of this encounter
--- OUTSIDE RECORDS SUMMARY | 2022-06-06 08:52 | XMS_ITS | Encounter Summary ---
:1990 Author Organization [facility] Address [address] [place] [address] Care Team Providers Name Role Phone Unavailable Primary Care Provider Unavailable Encounter Details Date Type Department Care Team Description 06/24/2016 Hospital Encounter HX [facility] MA Isabela Solis, P.A.-C. [address] [place], [place] [id number] (Wo rk) Social History Tobacco Use Types [...] GUSTAFSON P.A.-C. On: 06/27/2016 01:37 PM Source: [employer] Document Id: [id number] documented in this encounter Miscellaneous Notes Miscellaneous - Dewey Duong L.P.N. - 06/24/2016 4:04 PM CDT Adult Spinner Concrete Pipe Intake/History Adult Spinner Concrete Pipe Intake/History Entered On: 06/24/2016 16:08 CDT Performed [...] 06/24/2016 16:04 CDT General Info Languages : Kosovan Is Patient Female and 13-50 no hysterectomy [...] DUONG LPN - 06/24/2016 16:04 CDT Source: [facility] POWERCHART Document Id: [id number] documented in this encounter Plan of Treatment Not on filedocumented as of this encounter Visit Diagnoses Not on filedocumented in this encounter
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
--- OUTSIDE RECORDS SUMMARY | 2022-06-06 08:52 | XMS_ITS | Encounter Summary ---
:1990 Author Organization [facility] Address [address] [place] [address] Care Team Providers Name Role Phone Unavailable Primary Care Provider Unavailable Encounter Details Date Type Department Care Team Description 09/23/2013 Hospital Encounter HX [facility] FAMILY ME Brenna Craig, GRIS, C.N.P., D. N.P. [address] [place] [address] (Wo rk) Social History Tobacco Use Types Packs/Day Years Used Date Smoking Tobacco: Never Assessed Sex Assigned at Date Recorded Not on file documented as of this encounter Last Filed Vital Signs Vital Sign Reading Time Taken Comments Blood Pressure 106/66 09/23/2013 10:38 AM MAILER Pulse 96 09/23/2013 10:38 AM MAILER Temperature - - Respiratory Rate - - Oxygen Saturation - - Inhaled Oxygen Concentration - - Weight 82.6 kg (182 lb 1.6 oz) 09/23/2013 10:38 AM MAILER Height 166 cm (5' 5.35) 09/23/2013 10:38 AM MAILER Body Mass Index 29.98 09/23/2013 10:38 AM MAILER documented in this encounter Progress Notes Brenna Craig, Bonnie.N.P., C.N.P. - 09/23/2013 10:27 AM CST [id number] CHIEF COMPLAINT/REASON FOR VISIT Positive test. HISTORY [...] by mouth daily. She was given the [facility] What to Expect During book as she was deferred to this book for any rprg-xzk-poelllb medication usage. I also advised that she [...] DNP, FNP On: 09/27/2013 04:31 PM Source: [facility] MHSDOLBEYNONRADSYS Document Id: [id number] ER documented in this encounter Miscellaneous Notes Miscellaneous - Anastacia, Historical Provider Ser - 10/23/2013 10:39 AM MAILER General Message Document Contains Addenda Addendum by SUSHANT BRASHER V on 24 October 2013 09:10:30 MAILER pt updated Addendum by OFELIA RICARDO RN, FOLDER SEAMER AUTOMATIC on 24 October 2013 07:43:18 MAILER From: OFELIA RICARDO RN, FOLDER SEAMER AUTOMATIC To: SUSHANT BRASHER V; Sent: 10/24/2013 07:43:18 MAILER Subject: RE: General Message she can do that. From: SUSHANT BRASHER V To: OFELIA RICARDO RN, FOLDER SEAMER AUTOMATIC; Sent: 10/23/2013 10:39:00 MAILER Subject: General Message Pt was seen 09/27 by Brenna with positive test. EDC 05/28/14. Declined to share who she willbe seeing for OB. Wants your permission to dye hair using non-ammonia hair dye. Please advise Source: [facility] POWERCHART Document Id: [id number] Miscellaneous - Brenna Craig, D.N.P., C.N.P. - 09/23/2013 11:13 AM MAILER Ambulatory Depart Summary [address] [address] Visit Information Name: ARIS CRAIG LELIA [facility] Number: [id number] Visit Date: 09/23/2013 11:13:26 Attending Provider: BRENNA CRAIG DNP, BOWLING PIN SETTERS INSTALLER Primary Care Provider: OFELIA RICARDO RN, FOLDER SEAMER AUTOMATIC CRAIG, ARIS ROWELL has been given the [...] in case of emergency. Additional Information: Source: [facility] POWERCHART Document Id: [id number] ER Miscellaneous - Brenna Craig D.N.P., C.N.P. - 09/23/2013 11:13 AM MAILER Ambulatory Patient Summary [address] [address] Visit Information Name: ARIS CRAIG [facility] Number: [id number] Current Date: 09/23/2013 11:13:26 Physicians Attending Provider: BRENNA CRAIG DNP, BOWLING PIN SETTERS INSTALLER Primary Care Provider: OFELIA RICARDO RN, FOLDER SEAMER AUTOMATIC ARIS CRAIG has been given the following [...] appointment detail needed. Your Goals/Additional instructions: Source: [facility] POWERCHART Document Id: [id number] ER Miscellaneous - Lion Massey L.P.N. - 09/23/2013 10:48 AM CST Health Assessment Health Assessment Entered On: 09/23/2013 10:48 MAILER Performed On: 09/23/2013 10:48 MAILER by LION MASSEY LPN Health Assessment Complete Health Assessment Complete or Modified : Annual Health Assessment Annual Health Assessment Completed : Yes LION MASSEY LPN - 09/23/2013 10:48 MAILER Nutrition Nutrition Risk Factors by History Adult : None LION MASSEY LPN - 09/23/2013 10:48 MAILER Functional Current Daily Living Assistance : None LION MASSEY LPN - 09/23/2013 10:48 MAILER Dependent Habits Tobacco Use/Currently Using : No Exposure to Tobacco Smoke : Care provider denies smoking in home Smoking Status : Former smoker LION MASSEY LPN - 09/23/2013 10:48 MAILER Tobacco Use Grid Type : Cigarettes Cigarette Use Packs/Day : 0.5 Last Use : 09-20-13 LION MASSEY LPN - 09/23/2013 10:48 MAILER Caffeine Use Grid Caffeine Use : None Last Use : 09-20-13 LION MASSEY LPN - 09/23/2013 10:48 MAILER Recreational Drug Use Grid Drug Use : None LION MASSEY LPN - 09/23/2013 10:48 MAILER Psychosocial Domestic Abuse Concerns : None LION MASSEY LPN - 09/23/2013 10:48 MAILER Advance Directive Advanced Directives : No Advance Directive Additional Information : No LION MASSEY LPN - 09/23/2013 10:48 MAILER Educ Needs Learning Style Preference Adult Grid Patient : None Family : None LION MASSEY LPN - 09/23/2013 10:48 MAILER Source: [facility] POWERCHART Document Id: [id number] MAILER!33 ER Miscellaneous - Lion Massey L.PAniaNAnia - 09/23/2013 10:38 AM CST Adult Neuropsychology Medical Consultant Intake/History Document Has Been Updated Adult Neuropsychology Medical Consultant Intake/History Entered On: 09/23/2013 10:38 MAILER Performed On: 09/23/2013 10:38 MAILER by LION MASSEY LPN Intake Chief Complaint [...] kg/m2 LION MASSEY LPN - 09/23/2013 10:41 MAILER Weight Source : Standing scale LION MASSEY LPN - 09/23/2013 10:38 MAILER General Info Information Given By : Patient Languages : Upper Sorbian LION MASSEY LPN - 09/23/2013 10:38 MAILER Subjective Pain Symptoms : No LION MASSEY LPN - 09/23/2013 10:38 MAILER Dependent Habits Alcohol Use : No LION MASSEY LPN - 09/23/2013 10:41 MAILER Tobacco Use/Currently Using : No Tobacco Use/Last 12 months : No Tobacco Use/Advised to Quit : No Exposure to Tobacco Smoke : Care provider denies smoking in home Smoking Status : Former smoker LION MASSEY LPN - 09/23/2013 10:38 MAILER LION MASSEY LPN - 09/23/2013 10:38 MAILER Tobacco Use Grid Type : Cigarettes Cigarette Use Packs/Day : 0.5 Last Use : 09-20-13 LION MASSEY [facility] - 09/23/2013 10:41 MAILER Caffeine Use Grid Caffeine Use : None Type : Frequency : Amount : Last Use : 09-20-13 LION MASSEY [facility] - 09/23/2013 10:41 MAILER Recreational Drug Use Grid Drug Use : None LION MASSEY [facility] - 09/23/2013 10:38 MAILER Source: [facility] POWERCHART Document Id: [id number] MAILER!45 ER documented in this encounter Plan of Treatment Not on filedocumented as of this encounter Procedures Procedure Name Priority Date/Time Associated Diagnosis Comme nts TEST, U Routine 09/23/2013 10:46 AM Res ults for this MAILER procedure are i n the results section. documented in this encounter Results Test, Qualitative, Urine (09/23/2013 10:46 AM MAILER) [facility] gist Method Time Signature HXBeta-hCG Positive POWERCHART Qualitative Urine Specimen (Source) Anatomical Collection Method Collection Time Re ceived Time Location / / Volume Laterality Urine 09/23/2013 10:46 AM MAILER Brenna Craig APRN, C.N.P., D.N.P. LAB URINE EPI VO Performing Organization Address City/State/ZIP Code Phon e Number POWERCHART documented in this encounter Visit Diagnoses Not on filedocumented in this encounter
--- OUTSIDE RECORDS SUMMARY | 2022-06-06 08:52 | XMS_ITS | Encounter Summary ---
:[address] [facility] Address [address] [place] [address] Care Team Providers Name Role Phone Unavailable Primary Care Provider Unavailable Encounter Details Date Type Department Care Team Description 03/04/2015 Hospital Encounter HX [facility] FAMILY ME Ofelia Ricardo APRN, C.N.P., D. N.P. [address] [place] [address] (Wo rk) Social History Tobacco [...] APRN, C.N.P. - 03/04/2015 3:14 PM CDT [id number] CHIEF COMPLAINT/REASON FOR VISIT Vaginal symptoms of [...] Matti.N.P./radha Electronically Signed By: OFELIA RICARDO RN, CANDY BAR ATTENDANT On: 03/05/2015 12:46 PM Source: [facility] MHSDOLBEYNONRADSYS Document Id: [id number] documented in this encounter Miscellaneous Notes Miscellaneous - Ofelia Ricardo APRN, C.N.P. - 03/04/2015 4:12 PM CDT Ambulatory Patient Summary [address] [place], [place] [id number] Visit Information Name: ARIS LEOS [facility] Number: [id number] Current Date: 03/04/2015 16:12:12 Physicians Attending Provider: OFELIA RICARDO RN, THERESA Primary Care Provider: OFELIA RICARDO RN, CANDY BAR ATTENDANT ARIS LEOS has been given the following [...] day x 7 day(s) New Routed to [facility] [address] [address] Stop Taking the Following Medications: Medication list [...] appointment detail needed. Your Goals/Additional instructions: Source: [facility] UBmatrixCHART Document Id: [id number] Miscellaneous - Ofelia Ricardo APRN, C.N.P. - 03/04/2015 4:12 PM CDT Ambulatory Discharge Medication List [address] [id number] Visit Information Name: ARIS LEOS [facility] Number: [id number] Visit Date: 03/04/2015 16:12:11 [...] day x 7 day(s) New Routed to [facility] [address] [address] Stop Taking the Following Medications: Medication list [...] THERESA Signed On:04-MAR-2015 16:12:09 Additional Information: Source: [facility] UBmatrixCHART Document Id: [id number] Miscellaneous - Darius Sandoval L.P.N. - 03/04/2015 3:21 PM CDT Adult Green Pipefitter Intake/History Adult Green Pipefitter Intake/History Entered On: 03/04/2015 15:24 CDT Performed On: 03/04/2015 15:21 CDT by DARIUS SANDOVAL ASSISTANT COMMUNITY DIRECTOR Intake Chief Complaint : Vaginal itching. Temperature [...] Preferred Communication Mode : Verbal Languages : Lao Is Patient Female and 13-50 no hysterectomy [...] SANDOVAL LPN - 03/04/2015 15:21 CDT Source: [facility] POWERCHART Document Id: [id number] CDT!47 documented in this encounter Plan of Treatment Not on filedocumented as of this encounter Procedures Procedure Name Priority Date/Time Associated Comments Diagnosis WET PREP EXAM, Routine 03/04/2015 3:45 PM Results for this UROGENITAL CDT procedure are i n the results section. documented in this encounter Results (ABNORMAL) Wet Prep Exam, Urogenital (03/04/2015 3:45 PM CDT) [facility] Method Time Signature HXWet Prep (POSITIVE) [...]
--- OUTSIDE RECORDS SUMMARY | 2022-06-06 08:52 | XMS_ITS | Encounter Summary ---
:1990 Author Organization [facility] Address [address] [place] [address] Care Team Providers Name Role Phone Elsewhere, Pcp Primary Care Provider Unavailable Reason for Visit Reason Comments Other ingrown toenail very painful left big toe Appointment Request (Routine) - Closed Specialty Diagnoses / Procedures Referred By Contact Refer red To Contact Family Medicine Referral ID Status Reason Start Date Expiration Date Visits Requ ested Visits Authorized [id number] Closed 09/12/2017 03/11/2018 1 1 Encounter Details Date Type Department Care Team Description 09/15/2017 Office Visit Department of Family [facility] To[facility], [facility] ([facility], [place] [address] [place] [phone] Social History Tobacco Use Types Packs/Day Years Used Date Smoking Tobacco: Never Smokeless Tobacco: Never Sex Assigned at Date Recorded Not on file documented as of this encounter Last Filed Vital Signs Vital Sign Reading Time Taken Comments Blood Pressure 125/82 09/15/2017 11:20 AM CYTOLOGY TECHNOLOGIST Pulse 110 09/15/2017 11:20 AM CYTOLOGY TECHNOLOGIST Temperature 37 ??C (98.6 ??F) 09/15/2017 11:20 AM CYTOLOGY TECHNOLOGIST Respiratory Rate 16 09/15/2017 11:20 AM CYTOLOGY TECHNOLOGIST Oxygen Saturation - - Inhaled Oxygen Concentration - - Weight 78.2 kg (172 lb 6.4 oz) 09/15/2017 11:20 AM CYTOLOGY TECHNOLOGIST Height 167.6 cm (5' 6) 09/15/2017 11:20 AM CYTOLOGY TECHNOLOGIST Body Mass Index 27.83 09/15/2017 11:20 AM CYTOLOGY TECHNOLOGIST documented in this encounter H&P Notes Martin [...] for a wedge resection. See procedure note. LOGY TECHNOLOGIST documented in this encounter Procedure Notes Martin [...] 25 G Block technique: Four-sided ring block [place] injection procedure: Anatomic landmarks identified, incremental injection, [...] Up to date Complications: no immediate complications LOGY TECHNOLOGIST documented in this encounter Plan of Treatment Not on filedocumented as of this encounter Procedures Procedure Name Priority Date/Time Associated Diagnosis Comme nts AL EXCISN INGROWN Routine 09/15/2017 11:30 AM Ingrown Toenail Results for this TOENAIL CYTOLOGY TECHNOLOGIST procedure are i n the results section. documented in this encounter Results AL EXCISN INGROWN TOENAIL (09/15/2017 11:30 AM CYTOLOGY TECHNOLOGIST) Narrative MMODAL - 09/15/2017 11:30 AM CYTOLOGY TECHNOLOGIST Martin Jay M.D. ? 09/16/2017 ??9:29 AM [...] G ??Block technique: ??Four-sided ring bl ock ??[place] injection procedure: ??Anatomic landmarks identified, incremental injection, [...] Primary documented in this encounter Care Teams Water Pollution Control Inspector Relationship Specialty Start Date End Date Elsewhere, Pcp PCP - General Family Medicine 09/05/17 06/26/18 documented as of this encounter
--- OUTSIDE RECORDS SUMMARY | 2022-06-06 08:52 | XMS_ITS | Encounter Summary ---
:1990 Author Organization [facility] Address [address] [place] [address] Care Team Providers Name Role Phone Elsewhere, Pcp Primary Care Provider Unavailable Encounter Details Date Type Department Care Team Description 09/12/2017 Abstract Department of Family Medicine, Provider, Historical [facility], in [place], [place] [address] [address] [facility] [phone] Social History Tobacco Use Types Packs/Day Years Used Date Smoking Tobacco: Never Sex Assigned at Date Recorded Not on file documented as of this encounter Plan of Treatment Not on filedocumented as of this encounter Visit Diagnoses Not on filedocumented in this encounter Care Teams Showcase Maker Relationship Specialty Start Date End Date Elsewhere, Pcp PCP - General Family Medicine 09/05/17 06/26/18 documented as of this encounter
--- OUTSIDE RECORDS SUMMARY | 2022-06-06 08:52 | XMS_ITS | Encounter Summary ---
:1990 Author Organization [facility] Address [address] [place] [address] Care Team Providers Name Role Phone Unavailable Primary Care Provider Unavailable Encounter Details Date Type Department Care Team Description 11/18/2014 Hospital Encounter HX [facility] Brenna Craig, GRIS, C.N.P., D. N.P. [address] [place] [address] (Wo rk) Social History Tobacco Use Types Packs/Day Years Used Date Smoking Tobacco: Never Assessed Sex Assigned at Date Recorded Not on file documented as of this encounter Last Filed Vital Signs Vital Sign Reading Time Taken Comments Blood Pressure 131/97 11/18/2014 1:19 PM CONSTRUCTION SECRETARY Pulse 105 11/18/2014 1:19 PM CONSTRUCTION SECRETARY Temperature - - Respiratory Rate 14 11/18/2014 1:19 PM CONSTRUCTION SECRETARY Oxygen Saturation - - Inhaled Oxygen Concentration - - Weight - - Height 166 cm (5' 5.35) 11/18/2014 1:19 PM CONSTRUCTION SECRETARY Body Mass Index - - documented in this encounter Progress Notes Brenna Craig, D.N.P., C.N.P. - 11/18/2014 1:11 PM CST [id number] CHIEF COMPLAINT/REASON FOR VISIT Rash. HISTORY OF [...] DNP, FNP On: 11/18/2014 03:38 PM [facility] Document Id: [id number] TRUCTION SECRETARY documented in this encounter Miscellaneous Notes Miscellaneous - Brenna Craig D.N.P., C.N.P. - 11/18/2014 2:20 PM CONSTRUCTION SECRETARY Ambulatory Patient Summary [address] [id number] Visit Information Name: ARIS LEOS [facility] Number: [id number] Current Date: 11/18/2014 14:20:13 Physicians Attending Provider: BRENNA CRAIG DNP, FNP Primary Care Provider: OFELIA RICARDO RN, BELT CUTTER ARIS LEOS has been given the following [...] day x 10 day(s) New Routed to [facility] [address] [address] Stop Taking the Following Medications: Medication list [...] appointment detail needed. Your Goals/Additional instructions: Source: [facility] POWERCHART Document Id: [id number] TRUCTION SECRETARY Miscellaneous - Brenna Craig D.Cecil.Jie., C.N.P. - 11/18/2014 2:20 PM CONSTRUCTION SECRETARY Ambulatory Discharge Medication List [address] [id number] Visit Information Name: ARIS LEOS [facility] Number: [id number] Visit Date: 11/18/2014 14:20:12 Attending Provider: BRENNA CRAIG DNP, DHIRAJ Primary Care Provider: OFELIA RICARDO RN, BELT CUTTER ARIS LEOS has been given the following [...] day x 10 day(s) New Routed to [facility] [address] [address] Stop Taking the Following Medications: Medication list [...] FNP Signed On:18-NOV-2014 13:58:15 Additional Information: Source: [facility] POWERCHART Document Id: [id number] TRUCTION SECRETARY Miscellaneous - Rina Caballero L.P.NAnia - 11/18/2014 1:25 PM CST Health Assessment Health Assessment Entered On: 11/18/2014 13:25 CONSTRUCTION SECRETARY Performed On: 11/18/2014 13:25 CONSTRUCTION SECRETARY by RINA CABALLERO LPN Health Assessment Complete Health Assessment Complete or Modified : Annual Health Assessment Annual Health Assessment Completed : Yes RINA CABALLERO LPN - 11/18/2014 13:25 CONSTRUCTION SECRETARY Nutrition Nutrition Risk Factors by History Adult : Unintentional weight loss greater than 10 lbs in last 6 months RINA CABALLERO [facility] - 11/18/2014 13:25 CONSTRUCTION SECRETARY Functional Current Daily Living Assistance : None RINA CABALLERO LPN - 11/18/2014 13:25 CONSTRUCTION SECRETARY Dependent Habits Tobacco Use/Currently Using : No Tobacco Use/Last 12 months : No Tobacco Use/Advised to Quit : No Exposure to Tobacco Smoke : Care provider denies smoking in home Smoking Status : Never smoker RINA CABALLERO [facility] - 11/18/2014 13:25 CONSTRUCTION SECRETARY Tobacco Use Grid Type : Cigarettes Cigarette Use Packs/Day : 0.5 Last Use : 09-20-13 RINA CABALLERO [facility] - 11/18/2014 13:25 CONSTRUCTION SECRETARY Caffeine Use Grid Caffeine Use : None Last Use : 09-20-13 RINA CABALLERO [facility] - 11/18/2014 13:25 CONSTRUCTION SECRETARY Recreational Drug Use Grid Drug Use : None RINA CABALLERO [facility] - 11/18/2014 13:25 CONSTRUCTION SECRETARY Psychosocial Domestic Abuse Concerns : None Restoration Preference : No qualifying data available. RINA CABALLERO FLOORING MECHANIC - 11/18/2014 13:25 CONSTRUCTION SECRETARY Advance Directive Advanced Directives : No Advance Directive Additional Information : No RINA CABALLERO LPN - 11/18/2014 13:25 CONSTRUCTION SECRETARY Educ Needs Learning Style Preference Adult Grid Patient : None Family : None RINA CABALLERO LPN - 11/18/2014 13:25 CONSTRUCTION SECRETARY [facility] POWER[facility] Document Id: [id number] CONSTRUCTION SECRETARY!36 TRUCTION SECRETARY Miscellaneous - Rina Caballero L.P.N. - 11/18/2014 1:25 PM CST Meaningful Use Influenza Exclusion Meaningful Use Influenza Exclusion Entered On: 11/18/2014 13:25 CONSTRUCTION SECRETARY Performed On: 11/18/2014 13:25 CONSTRUCTION SECRETARY by RINA CABALLERO LPN Influenza Vaccine Exclusion Influenza Vaccine Exclusion : Patient declined RINA CABALLERO LPN - 11/18/2014 13:25 CONSTRUCTION SECRETARY Source: [facility] Document Id: [id number] CONSTRUCTION SECRETARY!3 TRUCTION SECRETARY Miscellaneous - Rina Caballero L.P.N. - 11/18/2014 1:19 PM CST Adult Airport Operations Specialist Intake/History Adult Airport Operations Specialist Intake/History Entered On: 11/18/2014 13:24 CONSTRUCTION SECRETARY Performed On: 11/18/2014 13:19 CONSTRUCTION SECRETARY by RINA CABALLERO LPN Intake Chief Complaint [...] inch(es)) RINA CABALLERO LPN - 11/18/2014 13:19 CONSTRUCTION SECRETARY General Info Information Given By : Patient Languages : Norwegian Is Patient Female and 13-50 no hysterectomy : Yes Status : Patient denies Are you ? : No RINA CABALLERO LPN - 11/18/2014 13:19 CONSTRUCTION SECRETARY Subjective Pain Symptoms : No RINA CABALLERO [facility] - 11/18/2014 13:19 CONSTRUCTION SECRETARY Dependent Habits Tobacco Use/Currently Using : No Tobacco Use/Last 12 months : No Tobacco Use/Advised to Quit : No Exposure to Tobacco Smoke : Care provider denies smoking in home Smoking Status : Never smoker GEORGIANARINA Mary [facility] - 11/18/2014 13:19 CONSTRUCTION SECRETARY Tobacco Use Grid Type : Cigarettes Cigarette Use Packs/Day : 0.5 Last Use : 09-20-13 GEORGIANARINA JANE Mary [facility] - 11/18/2014 13:19 CONSTRUCTION SECRETARY Caffeine Use Grid Caffeine Use : None Last Use : 09-20-13 GEORGIANA RINA Mary [facility] - 11/18/2014 13:19 CONSTRUCTION SECRETARY Recreational Drug Use Grid Drug Use : None GEORGIANARINA Mary [facility] - 11/18/2014 13:19 CONSTRUCTION SECRETARY ID Screen Drug Resistant Organism : No Travel Within Last 21 Days : No GEORGIANARINA Mary [facility] - 11/18/2014 13:19 CONSTRUCTION SECRETARY Source: [employer]ART Document Id: [id number] CONSTRUCTION SECRETARY!43 TRUCTION SECRETARY documented in this encounter Plan of Treatment Not on filedocumented as of this encounter Procedures Procedure Name Priority Date/Time Associated Diagnosis Comme nts N GONOR AMP SRC Routine 11/18/2014 2:06 PM Result s for this CONSTRUCTION SECRETARY procedure are i n the results section. N GONOR AMP DNA Routine 11/18/2014 2:06 PM Result s for this CONSTRUCTION SECRETARY procedure are i n the results section. C TRACH AMP SRC Routine 11/18/2014 2:06 PM Result s for this CONSTRUCTION SECRETARY procedure are i n the results section. C TRACH AMP RNA Routine 11/18/2014 2:06 PM Result s for this CONSTRUCTION SECRETARY procedure are i n the results section. documented in this encounter Results HX-N gonor Amp DNA (11/18/2014 2:06 PM CONSTRUCTION SECRETARY) P athologist Signature HXN gonor Amp Negative POWERCHART DNA-[place] Specimen (Source) Anatomical Collection Method Collection Time Re ceived Time Location / / Volume Laterality 11/18/2014 2:06 PM CONSTRUCTION SECRETARY Narrative POWERCHART - 11/20/2014 6:00 PM CONSTRUCTION SECRETARY Test Performed by: [address] [address] Tie Mill Operator: Garth Diaz II, M.D., Ph.D. Brenna Craig APRN, C.N.P., D.N.P. LAB HISTORICAL ORDERS Performing Organization Address City/State/ZIP Code Phon e Number POWERCHART HX-N gonor Amp Src (11/18/2014 2:06 PM CONSTRUCTION SECRETARY) athologist Signature HXN gonor Amp urine POWERCHART Src-[place] Specimen (Source) Anatomical Collection Method Collection Time Re ceived Time Location / / Volume Laterality 11/18/2014 2:06 PM CONSTRUCTION SECRETARY Brenna Craig APRN, C.N.P., D.N.P. LAB HISTORICAL ORDERS Performing Organization Address City/[facility]/ZIP Code Phon e Number POWERCHART HX-C trach Amp RNA (11/18/2014 2:06 PM CONSTRUCTION SECRETARY) [facility] gist Method Time Signature Chlamydia Negative POWERCHART trachomatis amplified RNA Specimen (Source) Anatomical Collection Method Collection Time Re ceived Time Location / / Volume Laterality 11/18/2014 2:06 PM CONSTRUCTION SECRETARY Brenna Craig APRN, C.N.P., D.N.P. LAB HISTORICAL ORDERS Performing Organization Address City/[facility]/ZIP Code Phon e Number POWERCHART HX-C trach Amp Src (11/18/2014 2:06 PM CONSTRUCTION SECRETARY) athologist Signature HXC trach Amp urine POWERCHART Src-[place] Specimen (Source) Anatomical Collection Method Collection Time Re ceived Time Location / / Volume Laterality 11/18/2014 2:06 PM CONSTRUCTION SECRETARY Brenna Craig APRN, C.N.P., D.N.P. LAB HISTORICAL ORDERS Performing Organization Address City/State/ZIP Code Phon e Number POWERCHART documented in this encounter Visit Diagnoses Not on filedocumented in this encounter
--- OUTSIDE RECORDS SUMMARY | 2022-06-06 08:52 | XMS_ITS | Encounter Summary ---
:1990 Author Organization [facility] Address [address] [place] [address] Care Team Providers Name Role Phone Elsewhere, Pcp Primary Care Provider Unavailable Encounter Details Date Type Department Care Team Description 09/05/2017 Orders Only Department of Family Medicine, Elsewhere, Pcp [facility], in [address] [phone] Social History Tobacco Use Types Packs/Day Years Used Date Smoking Tobacco: Never Sex Assigned at Date Recorded Not on file documented as of this encounter Plan of Treatment Not on filedocumented as of this encounter Visit Diagnoses Not on filedocumented in this encounter Care Teams Artillery Meteorological Man Relationship Specialty Start Date End Date Elsewhere, Pcp PCP - General Family Medicine 09/05/17 06/26/18 documented as of this encounter
--- OUTSIDE RECORDS SUMMARY | 2022-06-06 08:52 | XMS_ITS | Encounter Summary ---
:1990 Author Organization [facility] Address [address] [place] [address] Care Team Providers Name Role Phone Judi Strickland APRN, C.N.P., D.N.P. Primary Care Provider Reason for Referral Outpatient (Routine) - Closed Specialty Diagnoses / Procedures Referred By Contact Refer red To Contact Family Medicine Judi Strickland APRN, [facility] C.N.P., D.N.P. [address] [place] [address] [place] [address] Referral ID Status Reason Start Date Expiration Date Visits Requ ested Visits Authorized [id number] Closed 03/19/2020 03/19/2021 1 1 Encounter Details Date Type Department Care Team Description 03/19/2020 Orders Only RST PCP [facility] Judi Strickland APRN, C.N.P., D.N.P. [address] [place] [phone] (Wo rk) Social History Tobacco Use Types Packs/Day Years Used Date Smoking Tobacco: Never Smokeless Tobacco: Never Sex Assigned at Date Recorded Not on file documented as of this encounter Plan of Treatment Scheduled Referrals Name Type Priority Associated Diagnoses Order S [facility] Family Medicine Outpatient Referral Routine Expec jacob: office visit 04/02/2020, (clinic) Expires: 03/19/2023 documented as of this encounter Visit Diagnoses Not on filedocumented in this encounter Care Teams Management Engineer Relationship Specialty Start Date End Date Judi Strickland APRN, C.N.P., D.N.P. PCP - General 07/25/[id number] [phone] documented as of this encounter
--- OUTSIDE RECORDS SUMMARY | 2022-06-06 08:52 | XMS_ITS | Encounter Summary ---
:1990 Author Organization [facility] Address [address] [place] [address] Care Team Providers Name Role Phone Unavailable Primary Care Provider Unavailable Encounter Details Date Type Department Care Team Description 09/20/2015 Hospital Encounter HX NO MAPPING Jovi Alvarado P.A.-C., M.S. [address] [place], [place] [phone] (Wo rk) Social History Tobacco Use Types Packs/Day Years Used Date Smoking Tobacco: Never Assessed Sex Assigned at Date Recorded Not on file documented as of this encounter Last Filed Vital Signs Vital Sign Reading Time Taken Comments Blood Pressure 124/75 09/20/2015 3:00 PM BATON TEACHER Pulse 104 09/20/2015 3:00 PM BATON TEACHER Temperature - - Respiratory Rate - - Oxygen Saturation - - Inhaled Oxygen Concentration - - Weight - - Height 166 cm (5' 5.35) 09/20/2015 3:00 PM BATON TEACHER Body Mass Index - - documented in this encounter Discharge Summaries Suzanne Riley, L.P.N. - 09/20/2015 3:26 PM CST ED Discharge Instructions [facility] [address] [place] [address]. [place] [address] Name: ARIS FELIX Date of : 1990 12:00 AM Visit Date: 09/20/2015 2:21 PM [facility] Number: [id number] Address: [address] [facility] [address] Primary Care Provider: NICOLE SANTANA MD IMPORTANT: [facility] in [place] would like to thank you for allowing us to assist you with your healthcare needs. The following includes patient education materials and information regarding your injury/illness. Diagnosis: Bronchitis Acute; Sinusitis Acute NOS Follow-Up Instructions: With: Address: When: NICOLE MATTHEWPOOJADAVID [address] [place] [address] Business (1) Within As Needed Your Upcoming [...] will help loosen secretions in the lungs. Feof-sry-piafmiq cough medicines that contain dextromethorphan (such as [...] ear pain or a stiff neck ?? [phone] L[facility] MoralesGeising[facility], [address] [place] [address]. All rights reserved. This information is not [...] if you dont have one. Go to [email or web address] and click on Create Your Account. Then, follow the directions to complete the online form. Youll be asked for your [facility] number which you can find at [...] document has images extracted. Please consider using Telepathy for all your patient education needs. Source: [facility] POWERCHART Document Id: [id number] N TEACHER Suzanne Riley L.P.N. - 09/20/2015 3:26 PM CST ED Depart Summary [facility] Emergency Department Clinical Discharge Summary PERSON INFORMATION Name ARIS FELIX Age 24 Years 1990 12:00 AM Sex Female Language Hungarian PCP NICOLE SANTANA MD Marital Status Single N [id number] Visit Id Visit Reason UC - Cough; cough Specialty Enc Type [facility] Outpatient Med Service Urgent Care Referred by Track Group [facility] ED Discharge 09/20/2015 3:25 PM Tracking Id [id number] Checkout 09/20/2015 3:25 PM Checkin 09/20/2015 2:21 PM Acuity 4 -Less Urgent Dispo Type * Discharged to Home or Self Care Arrival 09/20/2015 2:21 PM Reg Status Complete LOS 000 01:04 Address: [address] [facility] [address] Comment: PROVIDER INFORMATION Provider Role Provider Contact Time AGNES GARCIA LPN ED Nurse 09/20/15 14:59 JOVI ALVARADO PA-C ED Provider 09/20/15 15:16 DIAGNOSIS Bronchitis Acute; Sinusitis Acute NOS Comment: PATIENT EDUCATION INFORMATION Instructions: BRONCHITIS, Abx Tx (Adult) Follow up: With: Address: When: NICOLE SANTANA [address] [place] [phone] Business (1) Within As Needed Source: [facility] POWERCHART Document Id: [id number] N TEACHER documented in this encounter Progress Notes Jovi Alvarado P.A.-C., M.S. - 09/20/2015 2:21 PM CST [id number] CHIEF COMPLAINT/REASON FOR VISIT Cough. HISTORY OF [...] ALVARADO PA-C On: 09/27/2015 04:24 PM Source: [facility] MHSDOLBEYNONRADSYS Document Id: [id number] N TEACHER documented in this encounter H&P Notes Agnes Garcia R.N. - 09/20/2015 3:00 PM CST Urgent Care Intake Urgent Care Intake Entered On: 09/20/2015 15:02 BATON TEACHER Performed On: 09/20/2015 15:00 BATON TEACHER by AGNES GARCIA LPN Intake Chief Complaint [...] inch(es)) AGNES GARCIA LPN - 09/20/2015 15:00 BATON TEACHER General Info Information Given By : Patient Languages : Hungarian Is Patient Female and 13-50 no hysterectomy : Yes Status : Patient denies Are you ? : No AGNES GARCIA LPN - 09/20/2015 15:00 BATON TEACHER Subjective Pain Symptoms : No AGNES GARCIA LPN - 09/20/2015 15:00 BATON TEACHER Dependent Habits Exposure to Tobacco Smoke : Care provider denies smoking in home Smoking Status : Current some day smoker Tobacco 2A : Yes Tobacco Use/Currently Using : Yes Tobacco Use/Last 30 Days : Yes Tobacco Use/Last 12 months : Yes Type : Cigarettes: Less than 20 per day Tobacco Use/Advised to Quit : No AGNES GARCIA LPN - 09/20/2015 15:00 BATON TEACHER Caffeine Use Grid Caffeine Use : None Last Use : 09-20-13 AGNES GARCIA LPN - 09/20/2015 15:00 BATON TEACHER Recreational Drug Use Grid Drug Use : None AGNES GARCIA LPN - 09/20/2015 15:00 BATON TEACHER Nutrition Nutrition Risk Factors by History Adult : None AGNES GARCIA LPN - 09/20/2015 15:00 BATON TEACHER Functional Current Daily Living Assistance : None AGNES GARCIA LPN - 09/20/2015 15:00 BATON TEACHER Psychosocial Domestic Abuse Concerns : None Behavioral Health Screen/Safety Assmt : No Baptist Preference : No qualifying data available. AGNES GARCIA ACETONE BUTTON PASTER - 09/20/2015 15:00 BATON TEACHER Advance Directive Advanced Directives : No Advance Directive Additional Information : No AGNES GARCIA ARPAN - 09/20/2015 15:00 BATON TEACHER Educ Needs Learning Style Preference Adult Grid Patient : None Family : None AGNES GARCIA ARPAN - 09/20/2015 15:00 BATON TEACHER Source: [facility] MiRT[employer] MedicalCHART Document Id: [id number] BATON TEACHER!51 N TEACHER documented in this encounter ED Notes Suzanne Riley L.P.N. - 09/20/2015 3:22 PM CST ED Disposition Summary ED Disposition Summary Entered On: 09/20/2015 15:23 BATON TEACHER Performed On: 09/20/2015 15:22 BATON TEACHER by SUZANNE RILEY LPN ED Disposition Summary Printed Discharge Instructions Given to Patient : Yes SUZANNE RILEY LPN - 09/20/2015 15:22 BATON TEACHER Source: [facility] [employer] MedicalCHART Document Id: [id number] BATON TEACHER!3 N TEACHER Lelia Garcia R.N. - 09/20/2015 2:21 PM CST ED Triage Assessment Document Has Been Updated ED Triage Assessment Entered On: 09/20/2015 14:22 BATON TEACHER Performed On: 09/20/2015 14:21 BATON TEACHER by LELIA GARCIA RN Reason For Visit (As Of: 09/20/2015 14:22:43 BATON TEACHER) Problems(Active) Cough Bronchospastic (ICD-9-CM :519.11 ) Name of Problem: Cough Bronchospastic ; Onset Date: 04/01/2015 ; Recorder: OFELIA RICARDO RN, THERESA; Confirmation: Confirmed ; Classification: Medical ; Code: 519.11 ; Contributor System: PowerChart ; Last Updated: 04/15/2015 7:28 CDT ; Life Cycle Status: Active ; Responsible Provider: OFELIA RICARDO RN, THERESA; Vocabulary: ICD-9-CM Iron deficiency anemia (SNOMED CT :539759726 ) Name of Problem: Iron deficiency anemia ; Onset Date:06/28/2010 ; Recorder: BRENNA CRAIG DNP, FNP; Confirmation: Confirmed ; Classification: Medical ; Code: 673882514 ; Contributor System: FUELUPChart ; Last Updated: 02/15/2011 11:49 CDT ; [...] PNED ; Probability: 0 ; Diagnosis Code: [id number] Triage Chief Complaint Description : cough, productive, for about 2 weeks. Cough is worse at night. OTC meds not working Information Given By : Patient Accompanied By : Alone Mode of Arrival ED : Private vehicle Track : Medical Languages : Hungarian Patient Informed of Triage Location : Urgent Care Treatments Prior to Arrival : Home treatments Are you ? : No Is Patient Female and 13-50 no hysterectomy : Yes Status : Patient denies LELIA GARCIA RN - 09/20/2015 14:21 BATON TEACHER Pain Assessment Pain Symptoms : No LELIA GARCIA RN - 09/20/2015 14:21 BATON TEACHER CHARANJIT DCP GENERIC CODE Tracking Acuity : 4 -Less Urgent Tracking Group : RW ED LELIA GARCIA RN - 09/20/2015 14:21 BATON TEACHER Source: [facility] [employer] Document Id: [id number] BATON TEACHER!19 N TEACHER documented in this encounter Plan of Treatment Not on filedocumented as of this encounter Visit Diagnoses Not on filedocumented in this encounter
--- OUTSIDE RECORDS SUMMARY | 2022-06-06 08:52 | XMS_ITS | Encounter Summary ---
:1990 Author Organization [facility] Address [address] [place] [address] Care Team Providers Name Role Phone Unavailable Primary Care Provider Unavailable Encounter Details Date Type Department Care Team Description 08/09/2011 Hospital Encounter HX [facility] Anne-Marie Roland, GRIS, C.N.P., D. N.P. [address] [place] [address] (Wo rk) Social History Tobacco Use Types Packs/Day Years Used Date Smoking Tobacco: Never Assessed Sex Assigned at Date Recorded Not on file documented as of this encounter Procedure Notes Cathleen Massey, L.P.N. - 08/09/2011 3:50 PM CST Depo-Provera Administration Depo-Provera Administration Entered On: 08/09/2011 15:50 MOLD SETTER Performed On: 08/09/2011 15:50 MOLD SETTER by CATHLEEN MASSEY LPN Depo-Provera Administration Annual Exam in the Past 12 Months : Yes Last Depo-Provera Given : 05/10/2011 CDT Needs test : No CATHLEEN MASSEY LPN - 08/09/2011 15:50 MOLD SETTER Source: [facility] POWERCHART Document Id: [id number] MOLD SETTER!5 SETTER documented in this encounter Plan of Treatment Not on filedocumented as of this encounter Visit Diagnoses Not on filedocumented in this encounter
--- OUTSIDE RECORDS SUMMARY | 2022-06-06 08:52 | XMS_ITS | Encounter Summary ---
:1990 Author Organization [facility] Address [address] [place] [address] Care Team Providers Name Role Phone Unavailable Primary Care Provider Unavailable Encounter Details Date Type Department Care Team Description 01/27/2011 Hospital Encounter HX [facility] Anne-Marie Roland, GRIS, C.N.P., D. N.P. [address] [place] [address] (Wo rk) Social History Tobacco [...] Dosing Weight: 68.300kg Last Depo-Provera Given: 11/05/2010 NPS Needs test: No KEVIN LUGO RN - 01/27/2011 16:20 CDT Source: [facility] POWERCHART Document Id: [id number] CDT!8 documented in this encounter Plan of Treatment Not on filedocumented as of this encounter Visit Diagnoses Not on filedocumented in this encounter
--- OUTSIDE RECORDS SUMMARY | 2022-06-06 08:52 | XMS_ITS | Encounter Summary ---
:1990 Author Organization [facility] Address [address] [place] [address] Care Team Providers Name Role Phone Unavailable Primary Care Provider Unavailable Encounter Details Date Type Department Care Team Description 02/19/2013 Hospital Encounter HX [facility] FAMILY ME Larry Souza, N.P. [address] [place] [address] (Wo rk) Social History Tobacco Use [...] Souza, N.P. - 02/19/2013 9:26 AM CDT [id number] CHIEF COMPLAINT/REASON FOR VISIT Pain in left [...] late 2011 that seemed to improve with care support representative and conservative measures. She has been using [...] SOUZA NP On: 02/21/2013 02:07 PM Source: [facility] MHSDOLBEYNONRADSYS Document Id: [id number] documented in this encounter Miscellaneous Notes Miscellaneous - Briseyda Souza NJason - 02/19/2013 10:10 AM CDT Ambulatory Patient Summary [address] [address] Visit Information Name: ARIS LEOS [facility] Number: [id number] Current Date: 02/19/2013 10:10:39 Physicians Attending Provider: BRISEYDA SOUZA NP Primary Care Provider: OFELIA RICARDO RN, FIELD EDUCATION DIRECTOR Your Medications Here is a list of [...] No Appointments found Your Goals/Additional instructions: Source: [facility] POWERCHART Document Id: [id number] Miscellaneous - Briseyda Souza NJason - 02/19/2013 10:10 AM CDT Ambulatory Depart Summary [facility] [address] [facility] [place] [address] Visit Information Name: ARIS LEOS [facility] Number: [id number] Visit Date: 02/19/2013 10:10:38 Attending Provider: BRISEYDA SOUZA ANESTHETIST Primary Care Provider: OFELIA RICARDO RN, FIELD EDUCATION DIRECTOR ARIS LEOS has been given the following [...] your provider for clarification. Additional Information: Source: [facility] POWERCHART Document Id: [id number] Miscellaneous - Hardik Galvan, L.P.N. - 02/19/2013 9:38 AM CDT Adult Electrifier Operator Intake/History Adult Electrifier Operator Intake/History Entered On: 02/19/2013 9:43 CDT Performed On: 02/19/2013 9:38 CDT by HARDIK GALVAN MANAGER OF COMPENSATION, RT Intake Chief Complaint : concerned about [...] Preferred Communication Mode : Verbal Languages : [place] Timorese HARDIK GALVAN LPN, 02/19/2013 9:38 CDT Subjective [...] HARDIK GALVAN LPN, 02/19/2013 9:43 CDT [facility] Document Id: [id number] CDT!3 documented in this encounter Plan of Treatment Not on filedocumented as of this encounter Visit Diagnoses Not on filedocumented in this encounter
--- OUTSIDE RECORDS SUMMARY | 2022-06-06 08:52 | XMS_ITS | Encounter Summary ---
:1990 Author Organization [facility] Address [address] [place] [address] Care Team Providers Name Role Phone Seda Solis P.A.-C. Primary Care Provider [phone] Encounter Details Date Type Department Care Team Description 02/13/2019 Nurse Triage Department of [facility], Jania Shipman R.N. Medicine, [facility], in [address] [place], [place], [place] [address] [place] [address] [place] [address] [phone] Social History Tobacco Use Types Packs/Day Years Used Date Smoking Tobacco: Never Smokeless Tobacco: Never Sex Assigned at Date Recorded Not on file documented as of this encounter Plan of Treatment Not on filedocumented as of this encounter Visit Diagnoses Not on filedocumented in this encounter Care Teams Signal Circuit Designer Relationship Specialty Start Date End Date Seda Solis P.A.-C. PCP - General Family Medicine 06/27/18 07/24/19 documented as of this encounter
--- OUTSIDE RECORDS SUMMARY | 2022-06-06 08:52 | XMS_ITS | Encounter Summary ---
:1990 Author Organization [facility] Address [address] [place] [address] Care Team Providers Name Role Phone Unavailable Primary Care Provider Unavailable Encounter Details Date Type Department Care Team Description 12/30/2010 Hospital Encounter HX [facility] Rowan Gonsales M.D. Social History Tobacco Use Types Packs/Day Years Used Date Smoking Tobacco: Never Assessed Sex Assigned at Date Recorded Not on file documented as of this encounter Progress Notes Rowan Gonsales M.D. - 12/30/2010 12:00 AM CDT [id number] CHIEF COMPLAINT/REASON FOR VISIT Abdominal pain. HISTORY [...] if that helps. She can get that aceh-zgw-uqrytur or alternatively I told her she could try some Prilosec. She is to eat bland foods and maybe smaller amounts. If there is no improvement in a week to 10 days or if it is worse before then she is to return. Rowan Gonsales M.D. / Electronically Signed By: ROWAN GONSALES MD On: 12/30/2010 12:29 Source: [facility] MHSDOLBEYNONRADSYS Document Id: [id number] documented in this encounter Miscellaneous Notes Miscellaneous [...] GONSALES MD - 12/30/2010 11:30 CDT Source: [employer] Document Id: [id number] CDT!5 Shashank - Cathleen Massey L.PAniaNAnia - [...] MASSEY LPN - 12/30/2010 11:07 CDT Source: [employer] Document Id: [id number] CDT!31 Shashank - Cathleen Massey L.P.NAnia - 12/30/2010 11:05 AM CDT Adult Library Services Assistant Intake/History Adult Library Services Assistant Intake/History Entered On: 12/30/2010 11:07 CDT Performed [...] LPN; Reviewed Date: 12/16/2010 9:25 CDT [facility] Document Id: [id number] CDT!36 documented in this encounter Plan of Treatment Not on filedocumented as of this encounter Visit Diagnoses Not on filedocumented in this encounter
--- OUTSIDE RECORDS SUMMARY | 2022-06-06 08:52 | XMS_ITS | Encounter Summary ---
:1990 Author Organization [facility] Address [address] [place] [address] Care Team Providers Name Role Phone Unavailable Primary Care Provider Unavailable Encounter Details Date Type Department Care Team Description 10/27/2011 Hospital Encounter [facility]X [facility] FAMILY ME Brenna Craig, GRIS, C.N.P., D. N.P. [address] [place] [address] (Wo rk) Social History Tobacco Use Types Packs/Day Years Used Date Smoking Tobacco: Never Assessed Sex Assigned at Date Recorded Not on file documented as of this encounter Last Filed Vital Signs Vital Sign Reading Time Taken Comments Blood Pressure 100/70 10/27/2011 1:55 PM LEGGER PRESS OPERATOR Pulse 120 10/27/2011 1:55 PM LEGGER PRESS OPERATOR Temperature - - Respiratory Rate 20 10/27/2011 1:40 PM LEGGER PRESS OPERATOR Oxygen Saturation - - Inhaled Oxygen Concentration - - Weight 74.8 kg (164 lb 14.5 oz) 10/27/2011 1:40 PM LEGGER PRESS OPERATOR Height - - Body Mass Index - - documented in this encounter Progress Notes Brenna Craig, D.N.P., C.N.P. - 10/27/2011 12:00 AM CST [id number] CHIEF COMPLAINT/REASON FOR VISIT Nasal congestion. HISTORY OF PRESENT ILLNESS The patient is a 21-year-old female who presents to the clinic today with some nasal congestion that has been present now for the past 4-5 days duration. She does report that today she is feeling a little bit better. She reports that she is not currently taking anything jzxv-eqv-oedwbsu to help with the symptoms and also [...] and reactive to light and accommodation OROPHARYNX: [place] and moist. TM's: Bilateral tympanic membranes are [...] DNP, FNP On: 10/31/2011 05:13 PM Source: [facility] JEFERSONSDOLBESARAH Document Id: [id number] ER PRESS OPERATOR documented in this encounter Procedure Notes Jabier Castaneda L.P.NAnia - 10/27/2011 1:55 PM CST Depo-Provera Administration Depo-Provera Administration Entered On: 10/27/2011 13:56 LEGGER PRESS OPERATOR Performed On: 10/27/2011 13:55 LEGGER PRESS OPERATOR by JABIER CASTANEDA LPN Depo-Provera Administration Annual Exam in the Past 12 Months : Yes Last Depo-Provera Given : 08/09/2011 LEGGER PRESS OPERATOR Return appointment : 01/10/2012 CDT Needs test : No JABIER CASTANEDA LPN - 10/27/2011 13:55 LEGGER PRESS OPERATOR Vitals/Ht/Wt Peripheral Pulse Rate : 120/min (HI) Systolic Blood Pressure : 100mmHg Diastolic Blood Pressure : 70mmHg NIBP Mean : 80mmHg BP Location : Left upper extremity Blood Pressure Cuff Size : Regular JABIER CASTANEDA LPN - 10/27/2011 13:55 LEGGER PRESS OPERATOR Source: [facility] POWERCHART Document Id: [id number] LEGGER PRESS OPERATOR!13 ER PRESS OPERATOR documented in this encounter Miscellaneous Notes Miscellaneous - Brenna Craig, JameN.P., C.N.P. - 10/27/2011 1:57 PM LEGGER PRESS OPERATOR Ambulatory Patient Summary [place] [address] [place] [address] Visit Information Name: ARIS LEOS Current Date: 10/27/2011 13:57:44 Primary Care Provider: OFELIA RICARDO RN, REFUGE WORKER Your Medications Here is a list [...] No Appointments found Your Goals/Additional instructions: Source: [employer] Document Id: [id number] ER PRESS OPERATOR Miscellaneous - Brenna Craig, Bonnie.N.P., C.N.P. - 10/27/2011 1:57 PM LEGGER PRESS OPERATOR Ambulatory Depart Summary [address] [address] Visit Information Name: DAFNEARIS Current Date: 10/27/2011 13:57:43 Attending Provider: BRENNA CRAIG DNP, RISK AND INSURANCE CONSULTANT Primary Care Provider: OFELIA RICARDO RN, REFUGE WORKER DAFNE ARIS LELIA has been given the [...] to the patient and/or family, guardian/caregiver. Source: [employer] Document Id: [id number] ER PRESS OPERATOR Miscellaneous - Jabier Castaneda L.P.N. - 10/27/2011 1:40 PM CST Adult Cardiac Exercise Specialist Intake/History Adult Cardiac Exercise Specialist Intake/History Entered On: 10/27/2011 13:43 LEGGER PRESS OPERATOR Performed On: 10/27/2011 13:40 LEGGER PRESS OPERATOR by JABIER CASTANEDA LPN Intake Chief Complaint [...] 74.80kg JABIER CASTANEDA LPN - 10/27/2011 13:40 LEGGER PRESS OPERATOR Subjective Pain Symptoms : No JABIER CASTANEDA LPN - 10/27/2011 13:40 LEGGER PRESS OPERATOR Dependent Habits Tobacco Use/Currently Using : Yes Exposure to Tobacco Smoke : Patient smokes Smoking Status : Smoker JABIER CASTANEDA LPN - 10/27/2011 13:40 LEGGER PRESS OPERATOR Tobacco Use Grid Type : Cigarettes Cigarette Use Packs/Day : 0.5 Last Use : 10 min ago JABIER CASTANEDA LPN - 10/27/2011 13:40 LEGGER PRESS OPERATOR Caffeine Use Grid Caffeine Use : Current Type : Soft drinks Frequency : Weekly Amount : 2 cans Last Use : 11am JABIER CASTANEDA LPN - 10/27/2011 13:40 LEGGER PRESS OPERATOR Recreational Drug Use Grid Drug Use : None JABIER CASTANEDA LPN - 10/27/2011 13:40 LEGGER PRESS OPERATOR Allergy Allergies (Active) NKA Estimated Onset Date: Unspecified ; Created By: CATHLEEN KURTZ LPN; Reaction Status: Active ;Category: Drug ; Substance: NKA ; Type: Allergy ; Updated By: CATHLEEN KURTZ LPN; Reviewed Date: 10/27/2011 13:39 LEGGER PRESS OPERATOR Source: [facility] POWERCHART Document Id: [id number] LEGGER PRESS OPERATOR!36 ER PRESS OPERATOR documented in this encounter Plan of Treatment Not on filedocumented as of this encounter Visit Diagnoses Not on filedocumented in this encounter
--- OUTSIDE RECORDS SUMMARY | 2022-06-06 08:52 | XMS_ITS | Encounter Summary ---
:1990 Author Organization [facility] Address [address] [place] [address] Care Team Providers Name Role Phone Elsewhere, Pcp Primary Care Provider Unavailable Encounter Details Date Type Department Care Team Description 10/11/2017 Nurse Triage Department of Erica Zapata R.N. Medicine, [facility], in [place], [place] [address] [place] [address] Social History Tobacco Use Types Packs/Day Years Used Date Smoking Tobacco: Never Smokeless Tobacco: Never Sex Assigned at Date Recorded Not on file documented as of this encounter Miscellaneous Notes Telephone Encounter - Erica Huertas R.N. - 10/11/2017 1:27 PM CST Patient was provided aftercare instructions. ER REPAIRER ELECTRIC documented in this encounter Plan of Treatment Not on filedocumented as of this encounter Visit Diagnoses Not on filedocumented in this encounter Care Teams Kettle Coordinator Relationship Specialty Start Date End Date Elsewhere, Pcp PCP - General Family Medicine 09/05/17 06/26/18 documented as of this encounter
--- OUTSIDE RECORDS SUMMARY | 2022-06-06 08:52 | XMS_ITS | Encounter Summary ---
:1990 Author Organization [facility] Address [address] [place] [address] Care Team Providers Name Role Phone Unavailable Primary Care Provider Unavailable Encounter Details Date Type Department Care Team Description 05/10/2011 Hospital Encounter HX [facility] FAMILY ME Deedee Bobby, GRIS, C.N.P., D. N.P. [address] [place] [address] (Wo rk) Social History Tobacco [...] MALDONADO LPN - 05/10/2011 10:01 CDT Source: [facility] POWERCHART Document Id: [id number] CDT!5 documented in this encounter Plan of Treatment Not on filedocumented as of this encounter Visit Diagnoses Not on filedocumented in this encounter
--- OUTSIDE RECORDS SUMMARY | 2022-06-06 08:52 | XMS_ITS | Encounter Summary ---
:1990 Author Organization [facility] Address [address] [place] [address] Care Team Providers Name Role Phone Unavailable Primary Care Provider Unavailable Encounter Details Date Type Department Care Team Description 12/23/2013 Hospital Encounter [facility] [place] Nayeli Campos M.D. [address] [place] [address] (Wo rk) Social History Tobacco Use [...] Body Mass Index 28.89 09/23/2013 10:38 AM TOOL KEEPER documented in this encounter Progress Notes Nayeli Koenig M.D. - 12/23/2013 6:50 AM CDT [id number] CHIEF COMPLAINT/REASON FOR VISIT Sore throat. HISTORY [...] expressed understanding of the content Nayeli Washington M.D./[facility] Electronically Signed By: NAYELI DICKERSON MD On: 01/04/2014 08:50 PM Modified by and Electronically Signed by: NAYELI DICKERSON MD On: 01/04/2014 08:50 PM Source: [facility] MHSDOLBEYNONRADSYS Document Id: [id number] documented in this encounter Miscellaneous Notes Miscellaneous - Nayeli Koenig M.D. - 12/23/2013 7:30 AM CDT Ambulatory Patient Summary [facility] [address] [facility] [place] [id number] Visit Information Name: ARIS LEOS [facility] Number: [id number] Current Date: 12/23/2013 07:30:58 Physicians Attending Provider: NAYELI DICKERSON MD Primary Care Provider: OFELIA RICARDO RN, CORRECTIONAL THERAPY DIRECTOR ARIS LEOS has been given the [...] appointment detail needed. Your Goals/Additional instructions: Source: [facility] POWERCHART Document Id: [id number] Miscellaneous - Nayeli Koenig M.D. - 12/23/2013 7:30 AM CDT Ambulatory Discharge Medication List [facility] [address] [facility] [place] [id number] Visit Information Name: ARIS LEOS [facility] Number: [id number] Visit Date: 12/23/2013 07:30:57 Attending Provider: NAYELI DICKERSON MD Primary Care Provider: OFELIA RICARDO RN, CORRECTIONAL THERAPY DIRECTOR ARIS LEOS has been given the [...] in case of emergency. Additional Information: Source: [facility] POWERCHART Document Id: [id number] Miscellaneous - Hardik Galvan, L.P.N. - 12/23/2013 7:00 AM CDT Adult Safety Advisor Intake/History Adult Safety Advisor Intake/History Entered On: 12/23/2013 7:06 CDT Performed On: 12/23/2013 7:00 CDT by HARDIK GALVAN CANAL TENDER, RT Intake Chief Complaint : Concerned about [...] Preferred Communication Mode : Verbal Languages : Frisian HARDIK GALVAN LPN, 12/23/2013 7:00 CDT Subjective [...] HARDIK GALVAN LPN, 12/23/2013 7:00 CDT [facility] Document Id: [id number] CDT!43 documented in this encounter Plan of [...] Strep A Screen (12/23/2013 7:13 AM CDT) [facility] Method Time Signature HXRapid Strep POWERCHART Confirmation HXPre Negative for POWERCHART Group A Strep by culture. HXFinal Negative for POWERCHART Group A Strep by culture. Specimen Anatomical Collection Method Collection Time Receive d Time (Source) Location / / Volume Laterality Throat 12/23/2013 7:13 AM 4 7:13 CDT AM CDT Nayeli Jarrett M.D. LAB MICROBIOLOGY - GENE RAL ORDERABLES Performing Organization Address City/[facility] Code Phon e Number POWERCHART Rapid Strep A Screen (12/23/2013 7:13 AM CDT) [facility] Method Time Signature HXStrep A POWERCHART Screen [...]
--- OUTSIDE RECORDS SUMMARY | 2022-06-06 08:52 | XMS_ITS | Encounter Summary ---
:1990 Author Organization [facility] Address [address] [place] [address] Care Team Providers Name Role Phone Unavailable Primary Care Provider Unavailable Encounter Details Date Type Department Care Team Description 10/21/2014 Hospital Encounter HX [facility] FAMILY [place] Dany Avalos M.D. [address] [place] [address] (Wo rk) Social History Tobacco Use Types Packs/Day Years Used Date Smoking Tobacco: Never Assessed Sex Assigned at Date Recorded Not on file documented as of this encounter Last Filed Vital Signs Vital Sign Reading Time Taken Comments Blood Pressure 118/72 10/21/2014 12:58 PM SALVAGE ENGINEERING TECHNICIAN Pulse 72 10/21/2014 12:58 PM SALVAGE ENGINEERING TECHNICIAN Temperature - - Respiratory Rate 16 10/21/2014 12:58 PM SALVAGE ENGINEERING TECHNICIAN Oxygen Saturation - - Inhaled Oxygen Concentration - - Weight - - Height 166 cm (5' 5.35) 10/21/2014 12:58 PM SALVAGE ENGINEERING TECHNICIAN Body Mass Index - - documented in this encounter Progress Notes Elliott Avalos M.D. - 10/21/2014 12:35 PM CST [id number] CHIEF COMPLAINT/REASON FOR VISIT Left knee pain. [...] MD On: 10/21/2014 05:03 PM Source: [facility] MHSDOLBEYNONRADSYS Document Id: [id number] AGE ENGINEERING TECHNICIAN documented in this encounter Miscellaneous Notes Miscellaneous - Marva Duarte L.P.N. - 10/21/2014 12:58 PM CST Adult Crystal Finisher Intake/History Adult Crystal Finisher Intake/History Entered On: 10/21/2014 13:01 SALVAGE ENGINEERING TECHNICIAN Performed On: 10/21/2014 12:58 SALVAGE ENGINEERING TECHNICIAN by MARVA DUARTE Intake Chief Complaint : [...] inch(es), 65 inch(es)) MARVA DUARTE 10/21/2014 12:58 SALVAGE ENGINEERING TECHNICIAN General Info Information Given By : Patient Languages : Khmer Is Patient Female and 13-50 no hysterectomy : Yes Status : Patient denies Are you ? : No MARVA DUARTE 10/21/2014 12:58 SALVAGE ENGINEERING TECHNICIAN Subjective Pain Symptoms : Yes MARVA DUARTE 10/21/2014 12:58 SALVAGE ENGINEERING TECHNICIAN Pain Scale Pain Scale Verbal 0-10 : Open MARVA DUARTE 10/21/2014 12:58 SALVAGE ENGINEERING TECHNICIAN Pain Pain Assessment Grid Pain 1 Location : Knee Intensity : 4 MARVA DUARTE 10/21/2014 12:58 SALVAGE ENGINEERING TECHNICIAN Dependent Habits Tobacco Use/Currently Using : No Exposure to Tobacco Smoke : Care provider denies smoking in home Smoking Status : Former smoker MARVA DUARTE 10/21/2014 12:58 SALVAGE ENGINEERING TECHNICIAN Tobacco Use Grid Type : Cigarettes Cigarette Use Packs/Day : 0.5 Last Use : 09-20-13 MARVA DUARTE 10/21/2014 12:58 SALVAGE ENGINEERING TECHNICIAN Caffeine Use Grid Caffeine Use : None Last Use : 09-20-13 MARVA DUARTE 10/21/2014 12:58 SALVAGE ENGINEERING TECHNICIAN Recreational Drug Use Grid Drug Use : None MARVA DUARTE 10/21/2014 12:58 SALVAGE ENGINEERING TECHNICIAN ID Screen Travel Within Last 21 Days : No MARVA DUARTE 10/21/2014 12:58 SALVAGE ENGINEERING TECHNICIAN Source: [facility] POWERCHART Document Id: [id number] SALVAGE ENGINEERING TECHNICIAN!47 AGE ENGINEERING TECHNICIAN documented in this encounter Plan of Treatment Not on filedocumented as of this encounter Visit Diagnoses Not on filedocumented in this encounter
--- OUTSIDE RECORDS SUMMARY | 2022-06-06 08:53 | XMS_ITS | Encounter Summary ---
:1990 Author Organization [facility] Address [address] [facility] 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 Encounter Details Date Type Department Care Team Description 02/25/2022 Office Visit [facility] Jazmine Sanderson DO [address] [address] Suspected Maternal Pinky Cottrell MD [address] [place] [address] anomaly, antepartum, Medicine Center single or un specified [place] fetus (Primary Dx) [address] [facility] [address] [place] [address] Social History Tobacco Use Types [...] Primary documented in this encounter Care Teams Health Physics Technician Relationship Specialty Start Date End Date No Ref-Primary, Physician PCP - General 01/27/22 Afsaneh Enciso DO Assigned OBGYN Provider 02/06/22 04/29/[address] [place] [address] documented as of this encounter
--- OUTSIDE RECORDS SUMMARY | 2022-06-06 08:53 | XMS_ITS | Encounter Summary ---
:1990 Author Organization [facility] Address [address] [place] [address] Care Team Providers Name Role Phone Unavailable Primary Care Provider Unavailable Encounter Details Date Type Department Care Team Description 11/05/2010 Hospital Encounter [facility] INPT[facility]OBS[facility] Carol Mendes M.D. Social History Tobacco Use Types Packs/Day Years Used Date Smoking Tobacco: Never Assessed Sex Assigned at Date Recorded Not on file documented as of this encounter Plan of Treatment Not on filedocumented as of this encounter Visit Diagnoses Not on filedocumented in this encounter
--- OUTSIDE RECORDS SUMMARY | 2022-06-06 08:53 | XMS_ITS | Encounter Summary ---
:1990 Author Organization [facility] Address [address] [place] [address] Care Team Providers Name Role Phone Unavailable Primary Care Provider Unavailable Encounter Details Date Type Department Care Team Description 01/25/2010 Hospital En[facility] INPT/OBSRV Lisa Velez M.D. [address] [place] [phone] (Wo rk) Social History Tobacco Use Types Packs/Day Years Used Date Smoking Tobacco: Never Assessed Sex Assigned at Date Recorded Not on file documented as of this encounter Plan of Treatment Not on filedocumented as of this encounter Visit Diagnoses Not on filedocumented in this encounter
--- OUTSIDE RECORDS SUMMARY | 2022-06-06 08:53 | XMS_ITS | Encounter Summary ---
:1990 Author Organization [place] Address [facility] [place] [address] Care Team Providers Name Role Phone No Ref-Primary, Physician Primary Care Provider [phone] Afsaneh Enciso DO Unavailable [phone] Encounter Details Date Type Department Care [...] on filedocumented in this encounter Care Teams Ropeman Relationship Specialty Start Date End Date No Ref-Primary, Physician PCP - General 01/27/22 Afsaneh Enciso DO Assigned OBGYN Provider 02/06/22 04/29/[address] [place] [address] [address] [place] [address] documented as of this encounter
--- OUTSIDE RECORDS SUMMARY | 2022-06-06 08:53 | XMS_ITS | Encounter Summary ---
:1990 Author Organization [facility] Address [address] [place] [address]. [place] [address] Care Team Providers Name Role Phone Unavailable Primary Care Provider Unavailable Reason for Referral Consultation (Routine: Next available opening) - Pending Review Specialty Diagnoses / Procedures Referred By Contact Refer red To Contact Diagnoses related condition, antepartum Romana Mar MD [facility] [address] [place] [address] Fax: Referral ID Status Reason Start Date Expiration Date Visits V isits Requested Authorized [id number] Pending 01/25/2022 01/25/2023 1 1 Review Encounter Details Date Type Department Care Team Description 01/25/2022 Transcribe Orders [facility] Romana Mar, Pr egnancy related Maternal MD condition, [facility] antepartum (Primary [facility] Dx) [address] [facility] [address] [place] [address] [phone] Social History Tobacco Use Types Packs/Day Years [...]
--- OUTSIDE RECORDS SUMMARY | 2022-06-06 08:53 | XMS_ITS | Encounter Summary ---
:1990 Author Organization [facility] Address [address] [place] [address] Care Team Providers Name Role Phone Unavailable Primary Care Provider Unavailable Encounter Details Date Type Department Care Team Description 04/26/2010 Hospital Encounter H[facility] INPT/OBSRV Cecil Tipton M.D. [address] [place], [place] [address] (Wo rk) Social History Tobacco Use Types Packs/Day Years Used Date Smoking Tobacco: Never Assessed Sex Assigned at Date Recorded Not on file documented as of this encounter Plan of Treatment Not on filedocumented as of this encounter Visit Diagnoses Not on filedocumented in this encounter
--- OUTSIDE RECORDS SUMMARY | 2022-06-06 08:53 | XMS_ITS | Encounter Summary ---
:1990 Author Organization [place] Address [facility] [place] [address] Care Team Providers Name Role Phone No Ref-Primary, Physician Primary Care Provider [phone] Afsaneh Enciso DO Unavailable [phone] Reason for Referral Diagnostic Imaging Ultrasound (Routine) - Pending Review Specialty Diagnoses / Procedures Referred By Contact Refer red To Contact Diagnoses Suspected anomaly, antepartum, single or unspecified fetus Afsaneh Enciso, Procedures [facility] US Comprehensive Single F/U DO [address] [place], [place] [address] Referral ID Status Reason Start Date Expiration Date Visits V isits Requested Authorized [id number] Pending 01/28/2022 01/28/2023 1 1 Review Reason for Visit Diagnostic Imaging Ultrasound (Routine) - Pending Review Specialty Diagnoses / Procedures Referred By Contact Refer red To Contact Diagnoses Suspected anomaly, antepartum, single or unspecified fetus Afsaneh Enciso, Procedures [facility] US Comprehensive Single F/U DO [address] [place], [place] [address] Referral ID Status Reason Start Date Expiration Date Visits V isits Requested Authorized [id number] Pending 01/28/2022 01/28/2023 1 1 Review Encounter Details Date Type Department Care Team Description 02/25/2022 Hospital Encounter [facility] Heather Sanderson DO [address] [place] [address] Suspected Maternal Pinky Cottrell MD [address] [place], [place] [address] anomaly, [facility] antepartum, single [place] or unspecified [address] [facility] fetus [address] [place] [address] Social History Tobacco Use Types [...] Procedure Name Priority Date/Time Associated Comments Diagnosis [facility] US COMPREHENSIVE Routine 02/25/2022 8:31 AM Suspected feta l Results for this SINGLE F/U CDT anomaly, procedure are i n antepartum, single the resul ts or unspecified section. fetus documented in this encounter Results [facility] US Comprehensive Single F/U (02/25/2022 8:31 [...] LEOS Study Date: 02/25/2022 7:44am Pat. NO: [id number] Referring ??MD: ZACH METZGER Site: [facility] Orthodontist Small Business Owner: Juliette Ocasio RD MS : 1990 Age: [...] lb 11 ? oz EFW by ?Hadlock ([id number]) Head / Face / Neck Biometry: Rail Washer ? 5.6 ? mm CM ?6.1 ? mm ANATOMY Abdomen ? Right adrenal gland: prominent ? Left adrenal gland: prominent The following structures appear normal: Head / Neck ? Cranium. Head size. Head shape. Lateral ventricles. Midline falx. Cavum septi pellucidi. Cerebellum. Cisterna magna. Thalami. Face ? Lips. Profile. Nose. Heart / Thorax ?4-chamber view. RVOT view. LVOT view. 6-yporzy-kiooccn view. ? Diaphragm. Abdomen ? Stomach. Kidneys. [...] Pat. Name:Alejandro LEOS Date: 7:44am Pat. NO: [id number] :MARCO A METZGER [facility]Juliette Ocasio [...] 1 lb 11 oz EFW by Hadlock ([id number]) Head / Face / Neck Biometry: Rail Washer 5.6 mm CM 6.1 mm ANATOMY Abdomen Right adrenal gland: prominent Left adrenal gland: prominent The following structures appear normal: Head / Neck Cranium. Head size. Head sha pe. Lateral ventricles. Midline falx. Cavum septi pellucidi. Cerebellum. Cisterna magna. Thalami. Face Lips. Profile. Nose. Heart / Thorax 4-chamber view. RVOT view . LVOT view. 9-aadnbq-jghadbm view. Diaphragm. Abdomen Stomach. Kidneys. Bladder. Spine [...] fetus documented in this encounter Care Teams Ammunition Components Inspector Relationship Specialty Start Date End Date No Ref-Primary, Physician PCP - General 01/27/22 Afsaneh Enciso DO Assigned OBGYN Provider 02/06/22 04/29/[address] [place] [address] [address] [place], [place] [id number] documented as of this encounter
--- OUTSIDE RECORDS SUMMARY | 2022-06-06 08:53 | XMS_ITS | Encounter Summary ---
:1990 Author Organization [facility] Address [address] [place] [address] Care Team Providers Name Role Phone Unavailable Primary Care Provider Unavailable Encounter Details Date Type Department Care Team Description 11/26/2009 Hospital Encounter [facility] INPT/OBSRV Sánchez Roland L, GRIS, C.N.P., D.N.P. [address] [place] [address] (Wo rk) Social History Tobacco Use Types Packs/Day Years Used Date Smoking Tobacco: Never Assessed Sex Assigned at Date Recorded Not on file documented as of this encounter Plan of Treatment Not on filedocumented as of this encounter Visit Diagnoses Not on filedocumented in this encounter
--- OUTSIDE RECORDS SUMMARY | 2022-06-06 08:53 | XMS_ITS | Encounter Summary ---
:1990 Author Organization [facility] Address [address] [place] [address] Care Team Providers Name Role Phone No Ref-Primary, Physician Primary Care Provider [phone] Encounter Details Date Type Department Care [...] on filedocumented in this encounter Care Teams Financial Institution Vice President Relationship Specialty Start Date End Date No Ref-Primary, Physician PCP - General 01/27/22 documented as of this encounter
--- OUTSIDE RECORDS SUMMARY | 2022-06-06 08:53 | XMS_ITS | Encounter Summary ---
:1990 Author Organization [facility] Address [address] [place] [address] Care Team Providers Name Role Phone Unavailable Primary Care Provider Unavailable Encounter Details Date Type Department Care Team Description 06/28/2010 Hospital Encounter [facility] INPT/OBSRV Cecil Tipton M.D. [address] [place], [place] [address] (Wo rk) Social History Tobacco Use Types Packs/Day Years Used Date Smoking Tobacco: Never Assessed Sex Assigned at Date Recorded Not on file documented as of this encounter Plan of Treatment Not on filedocumented as of this encounter Visit Diagnoses Not on filedocumented in this encounter
--- OUTSIDE RECORDS SUMMARY | 2022-06-06 08:53 | XMS_ITS | Encounter Summary ---
:1990 Author Organization [facility] Address [address] [place] [address] Care Team Providers Name Role Phone Unavailable Primary Care Provider Unavailable Reason for Visit Reason Comments Ultrasound L2-L Ventricular EIF, bilate ral adrenal gland enlargement Encounter Details Date Type Department Care Team Description 01/26/2022 PRE VISIT [facility] Carlos, Ultrasound (L2-L Maternal Medicine ABIEL Gardiner Vent ricular EIF, [facility] bilateral adrenal [address] gland en largement) [address] [place] [address] Social History Tobacco Use Types [...]
--- OUTSIDE RECORDS SUMMARY | 2022-06-06 08:53 | XMS_ITS | Encounter Summary ---
:1990 Author Organization [facility] Address [address] [place] [address] Care Team Providers Name Role Phone Unavailable Primary Care Provider Unavailable Encounter Details Date Type Department Care Team Description 03/31/2010 Hospital Encounter [facility] INPT/OBSRV Nathalie Gerardo, P.A.-Zulema. [address] [place] [address] (Wo rk) Social History Tobacco Use Types Packs/Day Years Used Date Smoking Tobacco: Never Assessed Sex Assigned at Date Recorded Not on file documented as of this encounter Plan of Treatment Not on filedocumented as of this encounter Visit Diagnoses Not on filedocumented in this encounter
--- OUTSIDE RECORDS SUMMARY | 2022-06-06 08:53 | XMS_ITS | Encounter Summary ---
:1990 Author Organization [facility] Address [address] [place] [address] Care Team Providers Name Role Phone Unavailable Primary Care Provider Unavailable Encounter Details Date Type Department Care Team Description 07/16/2010 Hospital Encounter [facility] INPT/OBSRV Akhil Sargent Jr., M.D. [address] [place], [place] [address] (Wo rk) Social History Tobacco Use Types Packs/Day Years Used Date Smoking Tobacco: Never Assessed Sex Assigned at Date Recorded Not on file documented as of this encounter Plan of Treatment Not on filedocumented as of this encounter Visit Diagnoses Not on filedocumented in this encounter
--- OUTSIDE RECORDS SUMMARY | 2022-06-06 08:53 | XMS_ITS | Encounter Summary ---
:1990 Author Organization [facility] Address [address] [place] [address]. [place] [address] Care Team Providers Name Role Phone Unavailable Primary Care Provider Unavailable Reason for Referral Diagnostic Imaging Ultrasound (Routine) - Pending Review Specialty Diagnoses / Procedures Referred By Contact Refer red To Contact Diagnoses related condition, antepartum Romana Metzger MD Procedures [facility] [address] [place] [address] Fax: Referral ID Status Reason Start Date Expiration Date Visits V isits Requested Authorized [id number] Pending 01/26/2022 01/26/2023 1 1 Review Encounter Details Date Type Department Care Team Description 01/26/2022 [facility] egnancy related Maternal MD condition, [facility] antepartum (Primary [facility] Dx) [address] [address] [phone] Social History Tobacco Use Types Packs/Day Years Used Date Never Assessed Sex Assigned at Date Recorded Not on file documented as of this encounter Plan of Treatment Not on filedocumented as of this encounter Results [facility] (01/28/2022 2:16 PM CDT) Anatomical Region [...] LEOS Study Date: 01/28/2022 1:24pm Pat. NO: [id number] Referring ??: ZACH METZGER Site: [facility] Termite Helper: Tania Reid RD AR : 1990 Age: [...] lb 13 ? oz EFW by ?Hadlock ([id number]) Head / Face / Neck Biometry: Hide Mill Worker ? 4.6 ? mm CM ?5.7 ? [...] cava. Inferior vena cava. 3-vessel view. ? 2-sdrykm-hlzyloq view. Cardiac position. Cardiac size. Cardiac rhythm. [...] RECOMMENDATION We discussed the [facility] [...] Pat. Name:ARIS LEOSDavid Date: 1:24pm Pat. NO: [id number] MD:ROMANA METZGER [facility]Tania Reid RDMS :1990Age:31 [...] 0 lb 13 oz EFW by Hadlock ([id number]-AC-SG-FL) Head / Face / Neck Biometry: Hide Mill Worker 4.6 mm CM 5.7 mm Nasal bone [...] vena cava. Inferior vena cava. 3-vessel view. 1-kontds-honxzzm view. Cardiac position . Cardiac size. Cardiac [...] RECOMMENDATION We discussed the findings on today's [facility] with the patient. Referred due to prominent [...] volume appeared no rmal. Romana Metzger MD [facility] US ORDERABLES documented in this encounter Visit Diagnoses Diagnosis related condition, antepartum - Primary related condition, antepartum documented in this encounter
--- OUTSIDE RECORDS SUMMARY | 2022-06-06 08:53 | XMS_ITS | Encounter Summary ---
:1990 Author Organization [place] Address [facility] [place] [address] Care Team Providers Name Role Phone No Ref-Primary, Physician Primary Care Provider [phone] Reason for Referral Diagnostic Imaging Ultrasound (Routine) - Pending Review Specialty Diagnoses / Procedures Referred By Contact Refer red To Contact Diagnoses Suspected anomaly, antepartum, single or unspecified fetus Afsaneh Enciso, Procedures [facility] US Comprehensive Single F/U DO [address] [place], [place] [address] Referral ID Status Reason Start Date Expiration Date Visits V isits Requested Authorized [id number] Pending 01/28/2022 01/28/2023 1 1 Review Reason for Visit Reason Comments Ultrasound L2-EIF, bilateral enlarged a drenals Encounter Details Date Type Department Care Team Description 01/28/2022 Office Visit [facility] Romana Metzger MD [facility] [address] [place] [address] Suspected anomaly, antepartum, sin gle or unspecified fetus (Primary Dx); Maternal Afsaneh Enciso, [address] [place] [address] Echogenic focus of bowel of fetus affect ing antepartum care of mother, single or unspecified fetus [facility] [address] [facility] [address] [place] [address] Social History Tobacco Use Types [...] on filedocumented as of this encounter Results [facility] US Comprehensive Single F/U (02/25/2022 8:31 [...] LEOS Study Date: 02/25/2022 7:44am Pat. NO: [id number] Referring ??: ZACH METZGER Site: [facility] Hospital Manager Water: Juliette Ocasio RD MS : 1990 Age: [...] lb 11 ? oz EFW by ?Hadlock ([id number]-FL) Head / Face / Neck Biometry: Surgical Specialist ? 5.6 ? mm CM ?6.1 ? mm ANATOMY Abdomen ? Right adrenal gland: prominent ? Left adrenal gland: prominent The following structures appear normal: Head / Neck ? Cranium. Head size. Head shape. Lateral ventricles. Midline falx. Cavum septi pellucidi. Cerebellum. Cisterna magna. Thalami. Face ? Lips. Profile. Nose. Heart / Thorax ?4-chamber view. RVOT view. LVOT view. 5-qnwecq-fndliuv view. ? Diaphragm. Abdomen ? Stomach. Kidneys. [...] Pat. Name:Alejandro LEOS Date: 7:44am Pat. NO: [id number] MD:ROMANA METZGER [facility]Juliette Ocasio RD :1990Age:31 INDICATION Prominent adrenal glands [...] 1 lb 11 oz EFW by Hadlock ([id number]-FL) Head / Face / Neck Biometry: Surgical Specialist 5.6 mm CM 6.1 mm ANATOMY Abdomen Right adrenal gland: prominent Left adrenal gland: prominent The following structures appear normal: Head / Neck Cranium. Head size. Head sha pe. Lateral ventricles. Midline falx. Cavum septi pellucidi. Cerebellum. Cisterna magna. Thalami. Face Lips. Profile. Nose. Heart / Thorax 4-chamber view. RVOT view . LVOT view. 1-egfgxy-pdhjnxt view. Diaphragm. Abdomen Stomach. Kidneys. Bladder. Spine [...] fetus documented in this encounter Care Teams Station Installer Relationship Specialty Start Date End Date No Ref-Primary, Physician PCP - General 01/27/22 documented as of this encounter
--- OUTSIDE RECORDS SUMMARY | 2022-06-06 08:53 | XMS_ITS | Encounter Summary ---
:1990 Author Organization [facility] Address [address] [place] [address] Care Team Providers Name Role Phone Unavailable Primary Care Provider Unavailable Encounter Details Date Type Department Care Team Description 02/02/2010 Hospital Encounter [facility] INPT/OBSRV Nathalie Gerardo, P.A.-Zulema. [address] [place] [address] (Wo rk) Social History Tobacco Use Types Packs/Day Years Used Date Smoking Tobacco: Never Assessed Sex Assigned at Date Recorded Not on file documented as of this encounter Plan of Treatment Not on filedocumented as of this encounter Visit Diagnoses Not on filedocumented in this encounter
--- OUTSIDE RECORDS SUMMARY | 2022-06-06 08:53 | XMS_ITS | Encounter Summary ---
:1990 Author Organization [facility] Address [address] [facility] [place] [address] Care Team Providers Name Role Phone No Ref-Primary, Physician Primary Care Provider Encounter Details Date Type Department Care Team Description 01/28/2022 Orders Only [facility] Vilma Garcia, [place] rmal Maternal GC ultrasound (Primary [facility] [address] Dx) [place] [address] [place], [place] [address] [phone] (Wo rk) Social History Tobacco Use Types [...] screening documented in this encounter Care Teams Heavy Antiarmor Weapons Infantryman Relationship Specialty Start Date End Date No Ref-Primary, Physician PCP - General 01/27/22 documented as of this encounter
--- OUTSIDE RECORDS SUMMARY | 2022-06-06 08:53 | XMS_ITS | Clinical Summary ---
:1990 Author Organization [facility] Address [address] [place] [address] Care Team Providers Name Role Phone No Ref-Primary, Physician Primary Care Provider [phone] Social History Tobacco Use Types Packs/Day [...] Phone Address Typ e / Group Dates [facility] [id number] 2021-Deonte [phone] [address] [facility] 55 [facility] [address] [place] [address] Care Teams Reimbursement Representative Relationship Specialty Start Date End Date No Ref-Primary, Physician PCP - General 01/27/22
--- OUTSIDE RECORDS SUMMARY | 2022-06-06 08:53 | XMS_ITS | Encounter Summary ---
:1990 Author Organization [place] Address [facility] [place] [address] Care Team Providers Name Role Phone No Ref-Primary, Physician Primary Care Provider [phone] Reason for Referral Diagnostic Imaging Ultrasound (Routine) - Pending Review Specialty Diagnoses / Procedures Referred By Contact Refer red To Contact Diagnoses related condition, antepartum Romana Metzger MD Procedures [facility] [address] [place] [address] Fax: Referral ID Status Reason Start Date Expiration Date Visits V isits Requested Authorized [id number] Pending 01/26/2022 01/26/2023 1 1 Review Reason for Visit Diagnostic Imaging Ultrasound (Routine) - Pending Review Specialty Diagnoses / Procedures Referred By Contact Refer red To Contact Diagnoses related condition, antepartum Romana Metzger MD Procedures [facility] [address] [place] [address] Fax: Referral ID Status Reason Start Date Expiration Date Visits V isits Requested Authorized [id number] Pending 01/26/2022 01/26/2023 1 1 Review Encounter Details Date Type Department Care Team Description 01/28/2022 Hospital Encounter [facility] Eduarda Metzger MD [facility] [address] [place] [address] related Maternal Afsaneh Enciso, DO [address] [facility] [address] [place], [place] [address] condition, Medicine Center antepartum [place] [address] [facility] [address] [place] [address] Social History Tobacco Use Types [...] results section. documented in this encounter Results [facility] US Comprehensive Single (01/28/2022 2:16 PM [...] LEOS Study Date: 01/28/2022 1:24pm Pat. NO: [id number] Referring ??MD: ZACH METZGER Site: [facility] Management Clerk: Tania Reid RD MS : 1990 Age: [...] lb 13 ? oz EFW by ?Hadlock ([id number]-FL) Head / Face / Neck Biometry: Mid Level Provider ? 4.6 ? mm CM ?5.7 ? [...] cava. Inferior vena cava. 3-vessel view. ? 2-vdmbfe-pgxpyoz view. Cardiac position. Cardiac size. Cardiac rhythm. [...] We discussed the findings on [facility]'s [facility] with the patient. Referred due to prominent [...] Pat. Name:Alejandro LEOS Date: 1:24pm Pat. NO: [id number] :ROMANA METZGER [facility]Tania Reid RDMS :1990Age:31 INDICATION Left, Echogenic [...] 0 lb 13 oz EFW by Hadlock ([id number]-FL) Head / Face / Neck Biometry: Mid Level Provider 4.6 mm CM 5.7 mm Nasal bone [...] vena cava. Inferior vena cava. 3-vessel view. 5-dtvooo-qtsparq view. Cardiac position . Cardiac size. Cardiac [...] RECOMMENDATION We discussed the findings on today's [facility] with the patient. Referred due to prominent [...] volume appeared no rmal. Romana Metzger MD [facility] US ORDERABLES documented in this encounter Visit Diagnoses Diagnosis related condition, antepartum documented in this encounter Care Teams Honing Machine Set Up Operator Tool Relationship Specialty Start Date End Date No Ref-Primary, Physician PCP - General 01/27/22 documented as of this encounter
--- OUTSIDE RECORDS SUMMARY | 2022-06-06 08:53 | XMS_ITS | Encounter Summary ---
:1990 Author Organization [facility] Address [address] [place] [address] Care Team Providers Name Role Phone Unavailable Primary Care Provider Unavailable Encounter Details Date Type Department Care Team Description 07/03/2009 Hospital Encounter [facility] INPT/OBSRV Cecil Tipton M.D. [address] [place], [place] [address] (Wo rk) Social History Tobacco Use Types Packs/Day Years Used Date Smoking Tobacco: Never Assessed Sex Assigned at Date Recorded Not on file documented as of this encounter Plan of Treatment Not on filedocumented as of this encounter Visit Diagnoses Not on filedocumented in this encounter
[2022-06-06 09:04] VITALS: BP 109/65; PULSE 100; RESP 16; TEMP 36.9; O2SAT 98
[2022-06-06 09:06] VITALS: BP 109/65; PULSE 129
--- NOTE | 2022-06-06 09:06 | CRLHL7_ITS ---
For Patients: As a result of the Cures Act, medical imaging exams and procedure reports are released immediately into your electronic medical record. You may view this report before your referring provider. If you have questions, please contact your health care provider. INDICATION: Biophysical profile. COMPARISON: Biophysical profile dated 05 June 2022. FINDINGS: A transabdominal pelvic ultrasound shows a single live intrauterine in the cephalic presentation. cardiac ltkdixwl=693 beats per minute and regular. Amniotic fluid: Single deepest pocket = 9.9 cm representing polyhydramnios. Biophysical profile score= 8 out of a possible 8. Dictated by Clement Ramos MD @ 06/06/2022 10:57:41 AM Dictated by: Clement Ramos MD @ 06/06/2022 10:57:48 (Electronically Signed)
[2022-06-06 09:37] VITALS: PULSE 107; O2SAT 97
--- NOTE | 2022-06-06 10:15 | PC.OBNST ---
NST Note NST Note Start: 06/06/22 08:51 Freq: ONCE Status: Active Protocol: Document 06/06/22 10:12 CUDDYH (Rec: 06/06/22 10:15 DDY [id number]) NST Note 3 Para (# of births) 2 EDC 06/13/22 Gestational Age In Weeks & Days 39 Weeks & 0 Days Patient Presented with Complaint(s) of Other If Observation after an injury, describe NST and BPP Reactive Yes Appropriate for Gestational Age Yes RN Kareen Ponce RN Date 06/06/22 Reactive Yes Appropriate for Gestational Age Yes ABIEL Conklin RNC Date 06/06/22 OB NST charge Yes Complete NST Note via Write Note Yes The provider's electronic signature indicates the NST is reactive/appropriate for gestational age. *Note to provider: If an addendum is required, open the patient's chart and click on the note under the Nurse/Allied Health tab.
--- NOTE | 2022-06-06 17:43 | PC.OBNST ---
NST Note NST Note Start: 06/06/22 08:51 Freq: ONCE Status: Discharge Protocol: Document 06/06/22 10:12 CUDDYH (Rec: 06/06/22 10:15 [facility] [id number]) NST Note 3 Para (# of births) 2 EDC 06/13/22 Gestational Age In Weeks & Days 39 Weeks & 0 Days Patient Presented with Complaint(s) of Other If Observation after an injury, describe NST and BPP Reactive No Appropriate for Gestational Age No RN Kareen Ponce RN Date 06/06/22 Reactive No Appropriate for Gestational Age No ABIEL Conklin RNC Date 06/06/22 OB NST charge Yes Complete NST Note via Write Note Yes The provider's electronic signature indicates the NST is reactive/appropriate for gestational age. *Note to provider: If an addendum is required, open the patient's chart and click on the note under the Nurse/Allied Health tab.
== END 2022-06-06 10:11 | disposition home or self-care (01) ==
LOC: OB CLI 08:50 → OB 09:47
PROVIDERS: Visit Provider Obstetrics & Gynecology
DX: O26.893 Other specified pregnancy related conditions, third trimester (principal); R51.9 Headache, unspecified; Z3A.38 38 weeks gestation of pregnancy
CPT/HCPCS: 59025; 76819; 99211; 99213

== ENCOUNTER 2022-06-07 06:47 | Inpatient (IN) | payer OTHER, SELFPAY ==
[2022-06-07] VITALS (44 sets, daily range): BP systolic 87–131; BP diastolic 50–85; PULSE 71–114; RESP 15–16; TEMP 36.5–36.8; O2SAT 98–100; BMI 34.2
--- NOTE | 2022-06-07 08:04 | P.LDBA_ITS ---
Subjective History of Present Illness Narrative: Patient is being admitted to Labor and Delivery for induction of labor for history of macrosomia. She is a 31 year old at weeks gestation. Her full history and physical was dictated by Camron on 05/27/2022. Please see this for details. OB Problem List: 1. Obesity, BMI 30.8 Hemoglobin A1c: 5.2% 2. History of macrosomia with 2nd : 9 lb 3. History of hemorrhage requiring blood transfusion with 1st 4. Anemia hgb 10.1 @ 1st OB Ferritin 74.3 Iron 59 TIBC 337 Percent saturation 17% =iron deficiency with mild anemia Ferrous sulfate 325 daily. Patient stopped taking this prior to her 23 week visit due to constipation. Advised iron-rich foods and continuing her daily PNV. Will recheck hgb at next visit. States she will likely refuse iron infusion if that is recommended. Hgb 8.4 on 03/16. Pt willing to restart PO iron. 05/06/22: Hbg 8.2,? Hct 26, MCV 67, iron 107, TIBC 492, Ferritin 21.2 = iron deficiency anemia. Iron infusion:[] 6. Covid positive 12/18/21-12/28 out of quarantine 12/29. Pt states she had covid in 2020 Growth U/S @ 32: 04/18/22, EFW 4# 10 oz (73%), SDP 7.3 cm, ROLAND BREECH Growth U/S @ 36 weeks: EFW 3451gm which lies at the 93rd % Doing testing, already previously scheduled (BPP) 7. Echogenic intracardiac focus and bilaterally enlarged adrenal glands on anatomy scan 01/21/22. [id number] negative, XY. Discussed congenital adrenal hyperplasia. Referral to perinatology placed. Level 2 US on 02/25/22: Prominent adrenal glands, but no EIF. No follow up recommended. 8. Bilobed placenta. Assess ERICA at 36 week u/s??? SDP 6.8 cm 9. Tachycardia at 34 weeks. Asymptomatic. Hgb: 8.2, TSH 1.13. Declined EKG 10. Polyhydramnios by 37w 4d u/s. SDP 9.8, ERICA measuring 28.2 cm. * Continue with weekly BPPs. * ERICA 19.4 on 06/02/2022 (normal) OB - H&P: Exam Physical Exam: Vital signs: Pulse BP 108 H 110/59 L 06/07/22 07:27 06/07/22 07:27 Constitutional: Constitutional: no acute distress Routine HEENT Exam: Head: Present atraumatic Routine Neck Exam: Neck: Present full ROM Detailed Neck Exam: Thyroids: Thyroid: Present normal Routine Respiratory Exam: Respiratory: Present CTA bilaterally Routine Cardiovascular Exam: Cardiovascular: RRR Detailed Labor and Delivery Exam: Patient Gravid: yes Dilation (cm): 2 Effacement (%): 50 Cervix position: mid Consistency: medium Tachysystole: No Contraction intensity: Mild Fetus (Single): Station: -3 (Ballotable) Heart Rate Baseline: 155 Monitor Accelerations: Present Monitor Decelerations: None [facility] Variability: Moderate (11-25) Routine Back/Spine/Pelvis Exam: Back/Spine: full ROM Routine Skin Exam: Present intact Routine Neurological Exam: Present alert, oriented X3, normal tone and normal speech Routine Psychiatric Exam: Present normal affect OB - Problem Based A/P Additional Plan (1) Encounter for induction of labor: Status: Acute (2) History of macrosomia in in prior , currently in third trimester: Status: Acute (3) Polyhydramnios affecting in third trimester: Status: Acute (4) Anemia affecting in third trimester: Status: Acute (5) History of hemorrhage: Status: Acute Plan ASSESSMENT:? 31 at 39.1 weeks gestation? complicated by:?hx of macrosomia, polyhydramnios (resolved on last US), anemia Labor type: Spontaneous, Early labor? Category 1 FHR pattern.?? Labor complicated by: hx of macrosomia and hx of hemorrhage.? GBS negative? ? PLAN:? 1. Routine intrapartum cares as ordered. Continue with expectant management? 2. Monitoring per policy, [continuous or intermittent]? 3. Planning unmedicated . Desires water . Consent signed. Hep C negative. Candidate for analgesia of choice.?? 4. Patient encouraged to reposition and ambulate to promote physiologic labor and .? 5. Anticipate ? Delivery/Labor/Induction Plan Plan: expectant management
[2022-06-07] MEDS: miSOPROStoL 25 MCG/0.25 TABLET VAGINAL (08:06)
[2022-06-07 08:29] LABS: SARS PCR* Negative SARS-CoV-2 (Negative)
[2022-06-07] MEDS: LACTATED RINGERS 1000 ML 1,000 ML 124 ML IV (12:35)
[2022-06-07] MEDS: OXYTOCIN 30 unit/500 ML in NS 30 UNIT/500 ML BAG IVPB (12:35)
[2022-06-07 12:42] LABS: Basophils Absolute Auto 0.02 K/uL (0.00-0.30); Basophils Percent Auto 0.2 % (0.0-3.0); Eosinophils Absolute Auto 0.09 K/uL (0.00-0.50); Eosinophils Percent Auto 0.9 % (0.0-7.0); Hemoglobin* 8.5 gm/dL (12.0-16.0); Lymphocytes Absolute Auto 2.23 K/uL (0.90-2.90); Mean Corpuscular HGB Conc 32 gm/dL (32-36); Mean Corpuscular Hemoglobin 22 pg (26-34); Mean Corpuscular Volume 69 fL (80-100); Neutrophils Absolute Auto 6.78 K/uL (1.7-7.0); Neutrophils Percent Auto 69.9 % (42.0-72.0); Platelet Count* 226 K/uL (140-440); RDW Coefficient of Variation % 15.5 % (11.5-15.5); Red Blood Count 3.94 m/uL (4.00-5.20); White Blood Count* 9.71 K/uL (4.50-11.00)
[2022-06-07 12:53] LABS: Slide Review Reflex No
--- NOTE | 2022-06-07 15:30 | P.OBPN_ITS ---
Pain Control Date Seen: 06/07/22 Pain control: tolerating well Comments: Aicha is coping well with labor pain/contractions. She is currently being supported by her .. Understands the current plan of care. Questions answered to her satisfaction. She denies any questions or concerns.. She would like to continue with position changes for comfort and pain management. She is thinking she may want an epidural soon.?? Contractions Monitor mode: External Contraction frequency: 3 Contraction pattern: Irregular Contraction intensity: Moderate Pelvic Exam Dilation (cm): 3 Effacement (%): 70 Station: -2 Fetus (Single) Amniotic Membrane Status: SROM (1513) status: Category l Assessment and Plan Pitocin rate (mU/min): 5 Assessment: induction ongoing Plan: continue present management and other (Continue pitocin management) Comments: ASSESSMENT:? 31 at 39 1/7 weeks gestation? complicated by: Polyhydramnios (resolved), anemia, hx of PPH and Hx of macrosomia? Labor type: Induced, Early labor? Category 1 FHR pattern.?? Labor complicated by: Anemia? GBS Negative? ? PLAN:? 1. Routine intrapartum cares as ordered. Continue with expectant management? 2. Monitoring per policy, continuous with Pitocin. Pitocin augmentation per prot ocol.? 3. Planning unmedicated . Desires water . Consent signed. Hep C negative. Candidate for analgesia of choice.?? 4. Patient encouraged to reposition and ambulate to promote physiologic labor and .? 5. Anticipate ?
[2022-06-07] MEDS: ROPIVACAINE 0.2% 100 ml 100 ML 12 MG EPIDURAL ×2 (16:57→23:06)
--- NOTE | 2022-06-07 17:02 | P.ANBPRC_ITS ---
PFSH PFS Medical History (Updated 06/07/22 @ 09:05 by Kassidy Minor CNM) Anemia affecting in third trimester History of vaginal delivery care following vaginal delivery care in third trimester Family History (Updated 03/23/22 @ 14:09 by Dalila Rice) Mother Diabetes, Onset Age: 8 Social History (Updated 05/03/22 @ 12:19 by Sabrina Figueroa, THERESA) Narrative: History of tobacco use Smoking Status: Former smoker Meds Home Medications and Allergies Home Medications Medication Instructions Recorded Confirmed Type docusate sodium 100 mg capsule mg PO 03/30/22 06/02/22 History ferrous sulfate 325 mg (65 mg mg PO DAILY 03/30/22 06/02/22 History iron) tablet,delayed release 103-folic acid 400 tab PO 03/30/22 06/02/22 History mcg-omeg3 32.5 mg-dha-fish oil chew tablet ( with DHA and Folic Acid) Allergies Allergy/AdvReac Type Severity Reaction Status Date / Time No Known Allergies Allergy Verified 06/02/22 15:45 Results Labs Labs: Laboratory Results - last 24 hr 06/07/22 06/07/22 06/07/22 07:45 12:33 12:33 WBC 9.71 RBC 3.94 L Hgb 8.5 L Hct 27.0 L MCV 69 L MCH 22 L MCHC 32 RDW Coeff of [place] 15.5 Plt Count 226 Neut % (Auto) 69.9 Lymph % (Auto) 23.0 Dewitt % (Auto) 5.0 Eos % (Auto) 0.9 Baso % (Auto) 0.2 Neut # (Auto) 6.78 Lymph # (Auto) 2.23 [place]itt # (Auto) 0.50 Eos # (Auto) 0.09 Baso # (Auto) 0.02 Abs Immat Gran (auto) 0.10 SARS-CoV-2 (PCR) Negative SARS-CoV-2 Blood Type O Positive Antibody Screen NEGATIVE Vital Signs Vital Signs: Last Vital Signs Temp 97.7 F 06/07/22 15:26 Pulse 105 H 06/07/22 16:58 Resp 16 06/07/22 15:26 BP 110/68 06/07/22 16:58 Pulse Ox 100 06/07/22 16:58 Weight: 93.497 kg Height: 165.1 cm Anesthesia Procedures Epidural Insertion Patient Location: OB Start Time: 16:40 Stop Time: 17:40 Start Date: 06/07/22 Stop Date: 06/07/22 Reason for Block: primary anesthetic Patient Position: sitting Performed By: Cisco Quigley Preanesthetic Checklist: IV checked, risks and benefits discussed, surgical consent, monitors and equipment checked, pre-op evaluation, timeout performed and anesthesia consent Prep: chlorhexidine gluconate Monitoring: blood pressure monitoring, continuous pulse oximetry and heart rate Approach: midline Vertebral Space: lumbar (1-5) Needle Type: Tuohy needle Injection Technique: continuous catheter (continuous catheter) Needle gauge: 17 Needle Length (cm): 10 cm Needle Insertion Depth (cm): 6 Catheter Gauge: 19 Catheter Type: multi-orifice Catheter at skin depth (cm): 12 Test Dose Result: negative and lidocaine 1.5% with epinephrine 1 to 200,000
[2022-06-07] MEDS: LACTATED RINGERS 1000 ML 1,000 ML 118 ML IV (17:12)
[2022-06-07] MEDS: PHENYLEPHRINE 100 MCG/ML SYRINGE IVP ×3 (17:27→22:18)
[2022-06-07] MEDS: LIDOCAINE 2% (PF) 5 ML VIAL EPIDURAL (18:51)
[2022-06-07] MEDS: CALCIUM CARBONATE 500 MG CHEW PO (19:29)
--- NOTE | 2022-06-07 21:01 | PM.OBPNL ---
Pain Control Date Seen: 06/07/22 Pain control: tolerating well Contractions Monitor mode: External Contraction frequency: 4 (2-4) Contraction pattern: Regular Contraction intensity: Moderate Pelvic Exam Dilation (cm): 4 Effacement (%): 70 Station: -1 Fetus (Single) Amniotic Membrane Status: SROM (1513) status: Category l Assessment and Plan Pitocin rate (mU/min): 11 Assessment: induction ongoing Plan: continue present management Comments: ASSESSMENT:? 31 at 39 1/7 weeks gestation? complicated by: Polyhydramnios (resolved), anemia, hx of PPH and Hx of macrosomia? Labor type: Induced, Early labor? Category 1 FHR pattern.?? Labor complicated by: Anemia, suspected OP positiong GBS Negative? ? PLAN:? 1. Routine intrapartum cares as ordered. 2. Monitoring per policy, continuous with Pitocin. Pitocin augmentation per protocol, continue to increase. 3. Continue with epidural for pain management. 4. Patient encouraged to reposition and ambulate to promote physiologic labor and .? 5. Discussed TXA at delivery for PPH prevention with know hgb of 8.5. Patient agreeable to plan. 6. Anticipate ?
[2022-06-08] VITALS (54 sets, daily range): BP systolic 93–197; BP diastolic 51–132; PULSE 70–193; RESP 16–18; TEMP 36.4–37.1; O2SAT 84–100
[2022-06-08] MEDS: TRANEXAMIC ACID 100 MG/ML INJ 1000 MG IV ×2 (01:45→02:26)
[2022-06-08] MEDS: miSOPROStoL 800 MCG/4 TABLET PR (02:13)
[2022-06-08] MEDS: METHYLERGONOVINE MALEATE 0.2 MG/ML INJ IM (02:24)
[2022-06-08] MEDS: LACTATED RINGERS 1000 ML 1,000 ML 999 ML IV (02:30)
--- NOTE | 2022-06-08 02:40 | P.OBPRC_ITS ---
Procedure Delivery date: 06/08/22 Procedure Done: Global Events: Labor Induction (For hx of macrosomia), Polyhydramnios (Resolved on most recent US) and Other (Biloped placenta; Hx of PPH) Intrapartal Events: Labor Induction and Excessive Bleeding Induction method: other (Cytotec x1 and Pitocin per protocol) Delivery monitor: external FHT and external uterine Route of delivery: Laceration description: Perineal - 1st Degree (Not repaired) Estimated blood loss (mL): 600 Anesthesia type: Epidural Disposition: floor Narrative: The patient is a 31 year-old G3 now P3 admitted on 06/07/22 at 39 Weeks, 1 Days gestation for induction of labor for history of macrosomia.? Cervical exam on admission was 2 cm/50 % effaced/-2 station with membranes intact in vertex presentation.? Contractions were occasional.? heart rate demonstrated baseline 155 bpm with moderate variability, + accelerations, - decelerations; a category 1 tracing.? SROM occurred at 1513 with clear fluid. ? Labor Analgesia:? Epidural ? Pitocin:? Yes ? Labor onset:? 06/07/22 2340 ? Complete:? 06/08/22 0142 ? Pushing:? 06/08/22 0142 ? heart tones during second stage were reassuring with variable decelerations during contractions with good return to baseline between. ? Patient was admitted for induction of labor for history of macrosomia. Her induction was started with 1 dose of cytotec followed by Pitocin. SROM occurred at 1513 with clear fluid. Labor progressed with titration of oxytocin with progressive active labor phase. Patient was complete at 0142 and pushing at 0142. TXA given prior to delivery for history of PPH and hgb of 8.5 on admission. of a viable male at 0211 with mom in supine left tilt. Vertex delivered OA. Nuchal cord x3, easily reduced at perineum. No shoulder dystocia. Body delivered easily and without incident. Infant passed to mothers abdomen with a vigorous cry. Cord was clamped and cut at > 5 minutes. APGARS were 8 at one minute and 9 at five minutes respectively. Mouth was bulb suctioned. Prior to delivery of placenta she had 3 gushes of blood. Bilobed Intact placenta with a 3 vessel cord delivered spontaneously at 0220. Fundus initially boggy but firm to massage. She continued to have multiple gushes of bleeding with fundal massage, fundus firm with massage. IV pitocin at 999, IM Methergine, rectal cytotec, and an additional dose of TXA given. Bleeding gradually improved with fundus u/2 and firm. 1st degree perineal laceration identified and repaired in typical fashion. QBL 600 cc. Mother and baby stable; mother plans to breastfeed. Infant weight pending. ? Placenta delivered spontaneously and complete at 0220 with a 3 vessel cord. Placenta was known biloped. Appears intact and complete. Identified marginal with velamentous insertion of far side of placenta. Vessel running along amniotic sac from insertion site to 2nd lobe. ? Mother and infant were stable after delivery. ? Lacerations:? 1st, not repaired ? Blood loss: 600 mL. hemorrhage based on symptomatic blood loss. Plan for hgb at 6 am. Patient prefers to receive blood if hgb is low. Blood loss measurement type: QBL ? Sponge and needles counts are correct. [place] Infant Gender: Male presentation: vertex Placental Delivery Description: Spontaneous Cord Description: 3 Vessels, Nuchal Cord, Loose and Reduced OB Vag Delivery Procedures Additional Procedures ECV: No Cook Catheter Insertion: No NST: No D&C: No Laceration Repair: No Tubal Ligation : No Procedure Details: excessive bleeding management
[2022-06-08] MEDS: ONDANSETRON 2 MG/ML inj 4 MG IV (02:48)
[2022-06-08] MEDS: DOCUSATE SODIUM 100 MG CAPSULE PO (10:13)
[2022-06-08] MEDS: ACETAMINOPHEN 500 MG TABLET 1000 MG PO (10:13)
[2022-06-08] MEDS: IBUPROFEN 600 MG TABLET PO (17:51)
[2022-06-09 00:30] VITALS: BP 104/70; PULSE 76; RESP 16; TEMP 36.4
[2022-06-09 03:18] VITALS: BP 100/66; PULSE 76; RESP 16; TEMP 36.4
--- NOTE | 2022-06-09 08:17 | P.DS_ITS ---
Documented by User: Sujatha Cleveland CNM 06/09/22 09:00 DS: Providers Provider Date Seen: 06/09/22 Date of admission: 06/07/22 06:47 Primary care physician: Not a Local Provider Admitting Clinician: Romana Mar MD Attending Physician on discharge: Sujatha Cleveland CNM Date of Discharge: 06/09/22 DS: Diagnosis Discharge Diagnosis (1) state: Status: Acute (2) Lactating mother: Status: Acute (3) Acute anemia: Status: Acute (4) Status post vaginal delivery: Status: Acute Exam Const: Vital Signs, click to edit/add: Vital Signs - 24 hr 06/08/22 08:20 06/08/22 12:13 06/08/22 16:30 Temperature 98.8 F 97.6 F 98 F Pulse Rate [Pulse Oximeter] 77 79 70 Respiratory Rate 16 16 Blood Pressure [Le ft Arm] 93/60 100/68 107/72 Pulse Oximetry 95 97 98 Oxygen Delivery Me thod Room Air Room Air Room Air 06/08/22 20:37 06/09/22 00:30 06/09/22 03:18 Temperature 98.1 F 97.6 F 97.6 F Pulse Rate [Pulse Oximeter] 76 76 76 Respiratory Rate 16 16 16 Blood Pressure [Le ft Arm] 100/67 104/70 100/66 Pulse Oximetry Oxygen Delivery Me thod Room Air Room Air Room Air Documenting provider has reviewed patient's vital signs: yes Common normals: no apparent distress, oriented x3, healthy appearing, alert and well nourished General appearance: cooperative, well kempt and well developed Orientation/consciousness: Yes awake, Yes oriented to person, Yes oriented to place and Yes oriented to time HENMT: Common normals: normocephalic and external nose normal Head and scalp: normocephalic Nose: external nose normal Eye: General eye: normal appearance of both eyes Neck & C-Spine: Common normals: full ROM and supple General: normal visual inspection Cervical spine: cervical ROM normal Chest: Common normals: inspection of chest normal and palpation of chest normal Chest: symmetrical chest wall rise Resp: Common normals: normal respiratory effort, no retractions, no use of accessory muscles and clear to auscultation bilaterally Effort & inspection: able to speak in complete sentences Auscultation: clear to auscultation bilaterally Cardio: Common normals: regular rate and regular rhythm Rate: regular rate Rhythm: regular rhythm GI: Common normals: Normal to inspection, nondistended, normoactive bowel sounds present and soft to palpation Inspection: normal to inspection Auscultation: normoactive bowel sounds Palpation: soft and tender : Bimanual exam- vagina & uterus: other (Involuting) Uterus: U/U and firm Lochia: small Uterus palpation: uterus tender Back & Pelvis: Common normals: thoracic and lumbar spine normal to inspection and no thoracic nor lumbar tenderness Thoracic spine/upper back: normal to inspection and thoracic ROM normal Lumbar spine/lower back: normal to inspection and lumbar ROM normal Extremity: Common normals: normal to inspection and full ROM General: normal exam except as noted Neuro: Common normals: oriented x3 Sensorium/orientation: awake, alert, oriented to person, oriented to place and oriented to time Speech: speech normal Psych: Common normals: mental status grossly normal, thought process normal and speech normal Appearance: grossly normal and well kempt Attitude: calm and engaged Activity/motor behavior: appropriate eye contact Speech: normal speech Thought process: normal thought process Thought content: normal thought content Attention/concentration: attention grossly intact Memory/cognition: memory grossly intact Insight: insight good Judgement: judgment good Skin: Common normals: no rashes or lesions noted General skin exam: no rashes or lesions noted OB - DS: Summary Hospital Course Hospital Course: The patient is a 31 year old G 3 P 3 at 39 weeks 2 days gestation that was admitted to the Center on 06/07/22 for induction of labor for history of macrosomia. She had an uncomplicated vaginal delivery. complicated by diagnosis of postpartun hemorrhage and symptomatic acute anemia. QBL of 600ml. Pt's bleeding controlled prophylactically d/t history of hemorrhage with TXA and immediately after delivery with Pitocin, Hemabate and Methargen. Pt was given fluids and symptoms resolved. She delivered a viable male , Sylvester. She is . the patient has done well and is bonding well with baby. Peripartum Data delivery method: Vaginal Laceration description: Perineal - 1st Degree (unrepaired) complications: none [place] Gender: Male Discharge Plan: Home Status at Discharge Functional status at discharge: independent ambulation Time Spent with Patient Time attestation: Total time spent providing and/or coordinating discharge services: Time spent: Less than 30 minutes Discharge Plan Discharge Disposition: Home, Self-Care Date of Admission: 06/07/22 06:47 Attending Provider on Discharge: Sujatha Cleveland Primary Care Provider: Provider,Not a Local Condition: Stable Anticipated Discharge Date/Time: 06/09/22 08:52 Discharge Medications: New ferrous sulfate 325 mg (65 mg iron) Tablet 325 mg PO HS Qty: 90 0RF docusate sodium 100 mg Capsule 100 mg PO DAILY Qty: 90 0RF ibuprofen 600 mg Tablet 600 mg PO Q6H PRNQty: 60 0RF acetaminophen 500 mg Tablet 1,000 mg PO Q6H PRNQty: 0 0RF Continued docusate sodium 100 mg capsule PO ferrous sulfate 325 mg (65 mg iron) tablet,delayed release (DR/EC) PO DAILY with DHA-Folic Acid 400-32.5 mcg-mg tablet,chewable PO Discharge Orders: Discharge Order (Routine); Ordered 06/09/22 Ordered By: Sujatha Cleveland Patient Education: OB Vaginal/Breast Feeding Activity Restrictions/Additional Instructions: Discharge instructions were reviewed with the patient including signs and symptoms of infection and home going medications Nothing vaginally for 6 weeks: no tampons or intercourse Do not drive while taking narcotic pain medication(s) Off Work or School for 6 weeks Symptoms to report to doctor: * Bleeding that saturates more than one pad per hour * Passing clots larger than the size of a golf ball * Pain not relieved by prescribed medication * Fever above 100.4 degrees Fahrenheit * A foul vaginal odor * Difficulty in emotions, mood, and functions * Thoughts of hurting yourself and/or * Painful, reddened area in your breast * Any drainage, redness, or tenderness in your IV/epidural site * Severe headache that doesn't improve after taking medications * Changes in vision, including temporary loss of vision, blurred vision, and/or light sensitivity * Upper abdominal pain (usually under ribs on the right side) * Decrease in urination or painful, frequent urinating * Chest pain * Shortness of breath * Tenderness or pain with redness and/swelling in the calf(s) of your leg 2-week visit: discuss infant feeding concerns, review control options and screen for anxiety/depression. 6-week visit for an annual exam. consultation services are available to all mothers and babies for the first year after delivery.? To make an appointment, please call [phone]. Activity Level: Activity as Tolerated Discharge Diet: Regular Follow Up Appointments: [facility] [Provider Group] (Follow up in clinic in 2 and 6 weeks) Forms: [employer] Info Instructions Documented by User: Kassidy Minor CNM 06/09/22 09:26 DS: Providers Provider Attending Physician on discharge: Sujatha Cleveland CNM/Kassidy Minor CNM DS: Diagnosis Discharge Diagnosis (1) state: Status: Acute (2) Lactating mother: Status: Acute (3) Acute anemia: Status: Acute (4) Status post vaginal delivery: Status: Acute Discharge Plan Discharge Disposition: Home, Self-Care Date of Admission: 06/07/22 06:47 Attending Provider on Discharge: Sujatha Cleveland Primary Care Provider: Provider,Not a Local Condition: Stable Anticipated Discharge Date/Time: 06/09/22 08:52 Discharge Medications: New ferrous sulfate 325 mg (65 mg iron) Tablet 325 mg PO HS Qty: 90 0RF docusate sodium 100 mg Capsule 100 mg PO DAILY Qty: 90 0RF ibuprofen 600 mg Tablet 600 mg PO Q6H PRNQty: 60 0RF acetaminophen 500 mg Tablet 1,000 mg PO Q6H PRNQty: 0 0RF Continued docusate sodium 100 mg capsule PO ferrous sulfate 325 mg (65 mg iron) tablet,delayed release (DR/EC) PO DAILY with DHA-Folic Acid 400-32.5 mcg-mg tablet,chewable PO Discharge Orders: Discharge Order (Routine); Ordered 06/09/22 Ordered By: Sujatha Cleveland Patient Education: OB Vaginal/Breast Feeding Activity Restrictions/Additional Instructions: Discharge instructions were reviewed with the patient including signs and symptoms of infection and home going medications Nothing vaginally for 6 weeks: no tampons or intercourse Do not drive while taking narcotic pain medication(s) Off Work or School for 6 weeks Symptoms to report to doctor: * Bleeding that saturates more than one pad per hour * Passing clots larger than the size of a golf ball * Pain not relieved by prescribed medication * Fever above 100.4 degrees Fahrenheit * A foul vaginal odor * Difficulty in emotions, mood, and functions * Thoughts of hurting yourself and/or * Painful, reddened area in your breast * Any drainage, redness, or tenderness in your IV/epidural site * Severe headache that doesn't improve after taking medications * Changes in vision, including temporary loss of vision, blurred vision, and/or light sensitivity * Upper abdominal pain (usually under ribs on the right side) * Decrease in urination or painful, frequent urinating * Chest pain * Shortness of breath * Tenderness or pain with redness and/swelling in the calf(s) of your leg 2-week visit: discuss infant feeding concerns, review control options and screen for anxiety/depression. 6-week visit for an annual exam. consultation services are available to all mothers and babies for the first year after delivery.? To make an appointment, please call [phone]. Activity Level: Activity as Tolerated Discharge Diet: Regular Follow Up Appointments: [facility] [Provider Group] (Follow up in clinic in 2 and 6 weeks) Forms: [employer] Info Instructions
[2022-06-09] MEDS: DOCUSATE SODIUM 100 MG CAPSULE PO (08:30)
[2022-06-09 09:44] VITALS: BP 96/68; PULSE 79; RESP 16; TEMP 36.6; O2SAT 96
[2022-06-09] MEDS: IBUPROFEN 600 MG TABLET PO (11:11)
== END 2022-06-09 12:15 | disposition home or self-care (01) | DRG 560 ==
PROVIDERS: Advanced Practice Midwife; Admitting Provider Obstetrics & Gynecology; Visit Provider Obstetrics & Gynecology
DX: O36.63X0 Maternal care for excessive fetal growth, third trimester, not applicable or unspecified (principal); O70.0 First degree perineal laceration during delivery; O72.1 Other immediate postpartum hemorrhage; O99.02 Anemia complicating childbirth; D62 Acute posthemorrhagic anemia; D50.9 Iron deficiency anemia, unspecified; Z86.16 Personal history of COVID-19; O40.3XX0 Polyhydramnios, third trimester, not applicable or unspecified; O43.193 Other malformation of placenta, third trimester; Z3A.39 39 weeks gestation of pregnancy; Z37.0 Single live birth
CPT/HCPCS: 1967; 36415; 85018; 85025; 86850; 86900; 86901; 87635; 88307; A9270; J2210; J2370; J2405; J2795; J7120

== ENCOUNTER 2025-01-07 16:25 | Outpatient (CLI) | payer OTHER, SELFPAY ==
[2025-01-10 05:51] LABS: HPV Source Cervix; HPV, High Risk by TMA Not Detected
== END 2025-01-07 16:26 | disposition home or self-care (01) ==
PROVIDERS: PCP Nurse Practitioner Family; Visit Provider Nurse Practitioner Family
DX: D50.9 Iron deficiency anemia, unspecified (principal); E66.9 Obesity, unspecified; Z12.4 Encounter for screening for malignant neoplasm of cervix; Z13.0 Encounter for screening for diseases of the blood and blood-forming organs and certain disorders involving the immune mechanism
CPT/HCPCS: 82728; 83540; 85025; 87624; 87625; 88141; 88142